=== PATIENT | female | born 1940 | race Caucasian/White ===

== ENCOUNTER 2016-08-20 15:58 | Inpatient (IN) | payer OTHER ==
[2016-08-20] MEDS ORDERED: PANTOPRAZOLE SODIUM 40 MG in SODIUM CHLORIDE 100 ML IVPB ONE (16:40)
[2016-08-20] MEDS: PANTOPRAZOLE SODIUM 80 MG in SODIUM CHLORIDE 100 ML IVPB SCH (17:10)
[2016-08-20 17:18] VITALS: BMI 24.1
[2016-08-20 17:25] LABS: MCH 31.2 pg (25.7-33.7); MCHC 33.1 g/dl (32.0-36.0); MEAN CELL VOLUME 94.1 fl (80-96); MEAN PLT VOLUME 8.4 fl (7.5-11.1); PLATELET COUNT 273 K/MM3 (134-434); RDW 14.3 % (11.6-15.6); WHITE BLOOD COUNT 20.3 K/mm3 (4.0-10.0)
[2016-08-20] MEDS ORDERED: PIPERACILLIN/TAZOB 3.375 GM/50 ML PRE-DOCKED IVPB ONE (17:34)
[2016-08-20] MEDS ORDERED: VANCOMYCIN 1,000 MG in DEXTROSE 5%-WATER - 250 ML IVPB ONE (17:34)
[2016-08-20] MEDS ORDERED: PANTOPRAZOLE SODIUM 100 ML IVPB ONE (17:36)
[2016-08-20] MEDS ORDERED: PANTOPRAZOLE SODIUM 40 MG VIAL ONE (17:37)
[2016-08-20 17:42] LABS: INR 1.42 (0.82-1.09); PROTHROMBIN TIME (PATIENT) 15.7 SEC (9.98-11.88)
[2016-08-20 17:45] LABS: ACTIVATED PTT 34.9 SECONDS (26.9-34.4)
[2016-08-20 17:59] LABS: ALBUMIN 2.8 g/dl (3.4-5.0); BILIRUBIN,TOTAL 3.9 mg/dL (0.2-1.0); MAGNESIUM 1.8 mg/dL (1.8-2.4); PHOSPHOROUS 3.7 mg/dL (2.5-4.9); TOT PROT 6.4 g/dl (6.4-8.2)
--- NOTE | 2016-08-20 18:05 | PDOC ---
History of Present Illness - General History Source: Family (Daughter ), Senior Care Records Exam Limitations: Dementia - History of Present Illness Initial Comments: 08/20/16 18:22 The patient is a 75 year old female, with a significant past medical history of HTN, hyperlipidemia, atrial fibrillation (on Xarelto), coronary artery disease, CHF (on Lasix and Digoxin), left breast CA s/p left sided mastectomy ( approximately 3 years ago) and dementia, who presents to the emergency department via EMS from [facility] with altered mental status. The patients daughter is at the bedside providing history due to the patients baseline dementia. Daughter states that the patient was in her normal state of health yesterday. Today, shelter staff report 3 separate episodes of coffee ground emesis. Daughter reports that the patient is AAO x 1 at her baseline but has seemed more confused/more sleepy today compared to what is usual for her. The patient uses a wheelchair to ambulate. The patients daughter denies any prior history of ulcers. Allergies: None reported. Past Surgical History: Left Mastectomy. Family History: Colon CA (uncle). Social History: Non smoker. Denies alcohol or drug use. PCP: Dr. Alexander Urban <Racquel Urban - Last Filed: 08/20/16 19:57> - General History Source: Family, Senior Care Records, Old Records Exam Limitations: Clinical Condition, Dementia <Armani Garcia - Last Filed: 08/20/16 20:04> - General Chief Complaint: Coffee Ground Emesis Stated Complaint: VOMITING, AMS Time Seen by Provider: 08/20/16 16:19 Past History <Racquel Urban - Last Filed: 08/20/16 19:57> - Past Medical History Cardiac Disorders: Yes (CAD, CHF,AFIB) Dementia: Yes HTN: Yes Hypercholesterolemia: Yes Psychiatric Problems: Yes (DEPRESSION) - Psycho/Social/Smoking Cessation Hx Anxiety: No Suicidal Ideation: No Smoking History: Never smoked Information on smoking cessation initiated: No Hx Alcohol Use: No Drug/Substance Use Hx: No Substance Use Type: None <Armani Garcia - Last Filed: 08/20/16 20:04> - Past Medical History Allergies/Adverse Reactions: Allergies Allergy/AdvReac Type Severity Reaction Status Date / Time No Known Allergies Allergy Verified 08/20/16 16:15 Home Medications: Ambulatory Orders Acetaminophen [Tylenol -] 650 mg PO Q8H 08/20/16 Anastrozole [Arimidex -] 1 mg PO DAILY 08/20/16 Atorvastatin Ca [Lipitor] 10 mg PO HS 08/20/16 Clonazepam [KlonoPIN] 0.5 mg PO TID 08/20/16 Clotrimazole [Lotrimin 1% Cream -] 1 applic TP BID 08/20/16 Digoxin [Digitek] 125 mcg PO ASDIR 08/20/16 Divalproex [Depakote -] 250 mg PO BID 08/20/16 Donepezil HCl [Aricept -] 10 mg PO HS 08/20/16 Escitalopram Oxalate [Lexapro -] 20 mg PO DAILY 08/20/16 Furosemide [Lasix] 40 mg PO DAILY 08/20/16 Isosorbide Mononitrate [Isosorbide Mononitrate ER] 30 mg PO DAILY 08/20/16 Lisinopril [Zestril] 2.5 mg PO DAILY 08/20/16 Melatonin 2 mg PO HS 08/20/16 Metoprolol Tartrate [Lopressor -] 50 mg PO BID 08/20/16 Multivitamin with Minerals [Icaps Plus] 1 each PO DAILY 08/20/16 Polyethylene Glycol 3350 [Gavilax] 17 gm PO DAILY 08/20/16 Rivaroxaban [Xarelto -] 20 mg PO DAILY 08/20/16 Review of Systems - Review of Systems Able to Perform ROS?: No Comments:: 08/20/16 18:12 Unable to perform ROS due to patients baseline dementia. <Racquel Urban - Last Filed: 08/20/16 19:57> *Physical Exam - Vital Signs Last Vital Signs Temp Pulse Resp BP Pulse Ox 101.8 F H 87 20 115/70 95 08/20/16 16:25 08/20/16 16:10 08/20/16 16:10 08/20/16 16:10 08/20/16 16:10 - Physical Exam Comments: 08/20/16 18:37 GENERAL: Warm to touch. AAO x 0 but the patient is alert. HEAD: No signs of trauma. EYES: PERRLA, EOMI, sclera anicteric, conjunctiva clear. ENT: Dry mucosa. Auricles normal inspection, hearing grossly normal, nares patent, oropharynx clear without exudates. NECK: Normal ROM, supple, no lymphadenopathy, JVD, or masses. LUNGS: Breath sounds equal, clear to auscultation bilaterally. No wheezes, and no crackles. HEART: Regular rate and rhythm, normal S1 and S2, no murmurs, rubs or gallops. ABDOMEN: Soft, nontender, normoactive bowel sounds. No guarding, no rebound. No masses. EXTREMITIES: Normal range of motion, no edema. No clubbing or cyanosis. No cords , erythema, or tenderness. NEUROLOGICAL: Cranial nerves II through XII intact. Normal speech, gait deferred. SKIN: Warm, dry, normal turgor, no rashes or lesions noted. RECTAL EXAM: Brown stool. No tears. <Racquel Urban - Last Filed: 08/20/16 19:57> - Vital Signs Last Vital Signs Temp Pulse Resp BP Pulse Ox 101.8 F H 87 20 115/70 95 08/20/16 16:25 08/20/16 16:10 08/20/16 16:10 08/20/16 16:10 08/20/16 16:10 <Armani Garcia - Last Filed: 08/20/16 20:04> Heart Score/ECG Review #1 ECG reviewed & interpreted by me at: 17:45 08/20/16 18:02 atrial fibrillation 91, TWi V3, no std/tracey, TWI III, normal axis, normal intervals, QTC 499 msec <Armani Garcia - Last Filed: 08/20/16 20:04> ED Treatment Course - LABORATORY CBC & Chemistry Diagram: 08/20/16 16:59 08/20/16 16:59 - ADDITIONAL ORDERS Additional order review: Laboratory Results 08/20/16 16:59 INR 1.42 H PTT (Actin FS) 34.9 H 08/20/16 16:59 RBC 3.72 MCV 94.1 MCHC 33.1 RDW 14.3 MPV 8.4 Neutrophils % Y Lymphocytes % Y <Racquel Urban - Last Filed: 08/20/16 19:57> - LABORATORY CBC & Chemistry Diagram: 08/20/16 16:59 08/20/16 16:59 - ADDITIONAL ORDERS Additional order review: Laboratory Results 08/20/16 16:59 INR 1.42 H PTT (Actin FS) 34.9 H 08/20/16 16:59 RBC 3.72 MCV 94.1 MCHC 33.1 RDW 14.3 MPV 8.4 Neutrophils % Y Lymphocytes % Y - RADIOLOGY Radiology Studies Ordered: Category Date Time Status HEAD CT WITHOUT CONTRAST [CT] Stat CT Scan 08/20/16 16:37 Ordered CHEST X-RAY PORTABLE* [RAD] Stat Radiology 08/20/16 16:37 Completed <Armani Garcia - Last Filed: 08/20/16 20:04> Medical Decision Making - Medical Decision Making 08/20/16 18:11 EXAM: RAD/CHEST X-RAY PORTABLE Reviewed By: Dr. Daisy Chairez IMPRESSION: Limited examination due to a chin artifact obscuring the thoracic inlet. [id number] cardiomegaly and mild bibasal atelectatic changes without gross evidence of infiltrates. EXAM: CT / HEAD CT WITHOUT CONTRAST Reviewed By: Dr. Daisy Chairez IMPRESSION: Moderate atrophy. No gross evidence of a focal intracranial lesion or hemorrhage is seen. Call placed to Dr. Sasha Paniagua at 19:41. Referred to answering service, awaiting callback. Dr. Paniagua returned call at 19:55, case discussed. <Racquel Urban - Last Filed: 08/20/16 19:57> - Medical Decision Making 08/20/16 18:03 A portion of this note was documented by scribe services under my direction. I have reviewed the details of the note, within reason, and agree with the documentation with the following case summary and management plan written by me. Patient treated in the ED. Nursing notes are reviewed and incorporated into the medical decision-making. Vital signs reviewed. Peripheral IV access obtained by the nurse, laboratory studies are drawn and sent, reviewed and interpreted by myself. Vital Signs Temp Pulse Resp BP Pulse Ox 101.8 F H 87 20 115/70 95 08/20/16 16:25 08/20/16 16:10 08/20/16 16:10 08/20/16 16:10 08/20/16 16:10 75-year-old female with past medical history of hypertension, hyperlipidemia, dementia, coronary disease, congestive heart failure on Lasix and digoxin, distant breast cancer presents with altered mental status today. Patient is from shelter [facility]. The daughter noted that the patient was in her usual state of health yesterday. She is typically AAO 1 at her dementia baseline. Today, patient is noted to have 3 separate episodes of coffee ground emesis and altered and fevers. Patient is unable to provide any further information given her dementia. Adult sepsis protocol initiated. Differential includes sepsis, urinary tract infection. Pneumonia is within differential is patient is coughing. Given the coffee-ground emesis like, we'll need to consider upper GI bleed. Guaiac stool. Initiate Protonix bolus and drip. Admit the patient to the hospital for further evaluation. We'll also obtain head CT to rule out neurological causes. 08/20/16 20:02 CBC, BMP 08/20/16 16:59 08/20/16 16:59 CMP Sodium 140 mmol/L (136-145) 08/20/16 16:59 Potassium 4.4 mmol/L (3.5-5.1) 08/20/16 16:59 Chloride 100 mmol/L (98-107) 08/20/16 16:59 Carbon Dioxide 29 mmol/L (21-32) 08/20/16 16:59 Anion Gap 11 (8-16) 08/20/16 16:59 BUN 25 mg/dL (7-18) H 08/20/16 16:59 Creatinine 1.0 mg/dL (0.55-1.02) 08/20/16 16:59 Creat Clearance w eGFR 53.91 (>60) 08/20/16 16:59 Random Glucose 126 mg/dL (74-106) H 08/20/16 16:59 Lactic Acid 3.352 mmol/L (0.4-2.0) H* 08/20/16 16:59 Calcium 9.0 mg/dL (8.5-10.1) 08/20/16 16:59 Phosphorus 3.7 mg/dL (2.5-4.9) 08/20/16 16:59 Magnesium 1.8 mg/dL (1.8-2.4) 08/20/16 16:59 Total Bilirubin 3.9 mg/dL (0.2-1.0) H 08/20/16 16:59 AST 307 U/L (15-37) H 08/20/16 16:59 ALT 338 U/L (12-78) H 08/20/16 16:59 Alkaline Phosphatase 348 U/L (45-117) H 08/20/16 16:59 Creatine Kinase 57 IU/L (26-192) 08/20/16 16:59 Troponin I 0.12 ng/ml (0.00-0.05) H 08/20/16 16:59 B-Natriuretic Peptide 60787.99 pg/ml (5-450) H 08/20/16 16:59 Total Protein 6.4 g/dl (6.4-8.2) 08/20/16 16:59 Albumin 2.8 g/dl (3.4-5.0) L 08/20/16 16:59 Urine Test Results Urine Color Ketty 08/20/16 17:32 Urine Appearance Clear 08/20/16 17:32 Urine pH 5.0 (5.0-8.0) 08/20/16 17:32 Ur Specific [place] 1.027 (1.001-1.035) 08/20/16 17:32 Urine Protein 2+ (NEGATIVE) H 08/20/16 17:32 Urine Glucose (UA) Negative (NEGATIVE) 08/20/16 17:32 Urine Ketones Negative (NEGATIVE) 08/20/16 17:32 Urine Blood Negative (NEGATIVE) 08/20/16 17:32 Urine Nitrite Negative (NEGATIVE) 08/20/16 17:32 Urine Bilirubin 4.0 (NEGATIVE) 08/20/16 17:32 Ur Leukocyte Esterase Trace (NEGATIVE) H 08/20/16 17:32 CAT scan head reviewed. No acute findings. Chest x-ray reviewed. Shows no infiltrates. No pleural effusions. The patient is noted to have an elevated white count and bandemia and lactic acid of 3.35. Decision was made to start empiric antibiotics vancomycin and Zosyn. The source is not clear at this moment. Influenza swab is pending. The troponin is slightly elevated which may be secondary to her elevated BNP. I have low suspicion for acute FL event at this time. Transaminases are also elevated, again, may be potentially secondary to sepsis or hepatic congestion. Given that the patient is being treated for sepsis, decision was made to not give diuretics. We'll need to reevaluate fluid status prior to making a decision about diuretics. Case was discussed with Dr. Paniagua who accepts the patient for telemetry admission to the hospital. Case discussed in detail with admitting physician including history, physical exam and ancillary studies. Admitting physician has assumed care for the patient, will follow all pending diagnostics and will complete the evaluation and treatment. <Armani Garcia - Last Filed: 08/20/16 20:04> *DC/Admit/Observation/Transfer - Attestations Scribe Attestion: 08/20/16 18:11 Documentation prepared by Racquel Urban, acting as manager medical writing for Armani Garcia MD. <Racquel Urban - Last Filed: 08/20/16 19:57> - Discharge Dispostion Admit: Yes <Armani Garcia - Last Filed: 08/20/16 20:04> Diagnosis at time of Disposition: Sepsis Qualifiers: Sepsis type: sepsis due to unspecified organism Qualified Code(s): A41.9 - Sepsis, unspecified organism - Discharge Dispostion Condition at time of disposition: Guarded - Referrals Referrals: Alexander Urban [Primary Care Provider] -
[2016-08-20 18:15] LABS: TROPONIN I 0.12 ng/ml (0.00-0.05)
[2016-08-20 18:16] LABS: PLATELET ESTIMATE ADEQUATE (NORMAL)
[2016-08-20] MEDS ORDERED: PIPERACILLIN/TAZOB 3.375 GM 50 ML IVPB ONE (19:15)
[2016-08-20] MEDS ORDERED: VANCOMYCIN 1 GRAM (PRE-DOCKED) 250 ML IVPB ONE (19:15)
[2016-08-20 19:26] LABS: URINE APPEARANCE CLEAR; URINE BLOOD NEGATIVE (NEGATIVE); URINE COLOR AMBER; URINE GLUCOSE (UA) NEGATIVE (NEGATIVE); URINE KETONE NEGATIVE (NEGATIVE); URINE NITRITE NEGATIVE (NEGATIVE); URINE UROBILINOGEN 4.0 E.U/dl E.U./dl (0.2-1.0)
[2016-08-20 19:33] LABS: URINE LEUK ESTERASE TRACE (NEGATIVE); URINE PROTEIN 2+ (NEGATIVE)
[2016-08-20 19:37] LABS: URINE MUCUS MODERATE; URINE RBC 8 /hpf (0-3); URINE WBC 4 /hpf (3-5)
[2016-08-20] MEDS ORDERED: ACETAMINOPHEN 1000 MG/100 ML VIAL (NON FORMULARY) IVPB ONE (19:50)
[2016-08-20] MEDS ORDERED: ACETAMINOPHEN INJECTION 100 ML IVPB ONE (20:03)
[2016-08-20] MEDS ORDERED: ATORVASTATIN CA 10 MG TABLET (FP) PO SCH (22:00)
[2016-08-20] MEDS: METOPROLOL TARTRATE 50 MG TABLET (FP) PO SCH (23:16)
[2016-08-20] MEDS: clonazePAM 0.5 MG TABLET PO SCH (23:16)
[2016-08-20] MEDS: CLOTRIMAZOLE 1% CREAM 15 GM TUBE TP SCH (23:16)
[2016-08-20] MEDS: DIVALPROEX SODIUM 125 MG TABLET E.C. (FP) PO SCH (23:16)
[2016-08-20] MEDS: DONEPEZIL HCL 10 MG TABLET (FP) PO SCH (23:16)
[2016-08-20] MEDS: MELATONIN 1 MG TABLET PO SCH (23:16)
[2016-08-21] MEDS: PANTOPRAZOLE SODIUM 80 MG in SODIUM CHLORIDE 100 ML IVPB SCH (05:33)
[2016-08-21] MEDS: clonazePAM 0.5 MG TABLET PO SCH ×3 (05:38→22:40)
[2016-08-21] MEDS: ACETAMINOPHEN 325 MG TABLET (FP) PO SCH ×2 (05:38→05:39)
[2016-08-21 08:33] LABS: BASOPHIL 0.3 % (0-2.0); EOSINOPHIL 0.8 % (0-4.5); MCH 31.4 pg (25.7-33.7); MCHC 33.3 g/dl (32.0-36.0); MEAN CELL VOLUME 94.3 fl (80-96); MEAN PLT VOLUME 8.4 fl (7.5-11.1); NEUTROPHILS 85.7 % (42.8-82.8); PLATELET COUNT 196 K/MM3 (134-434); RDW 14.1 % (11.6-15.6); WHITE BLOOD COUNT 13.8 K/mm3 (4.0-10.0)
[2016-08-21 09:01] LABS: ALBUMIN 2.6 g/dl (3.4-5.0); CALCIUM 8.5 mg/dL (8.5-10.1)
[2016-08-21 09:08] LABS: ALK PHOS 283 U/L (45-117); CO2 31 mmol/L (21-32); CREATININE 0.8 mg/dL (0.55-1.02); GLUCOSE,RANDOM 84 mg/dL (74-106); SGOT/AST 227 U/L (15-37); SGPT/ALT 299 U/L (12-78); TOT PROT 5.6 g/dl (6.4-8.2)
[2016-08-21] MEDS: LISINOPRIL 5 MG TABLET (FP) PO SCH (09:45)
[2016-08-21] MEDS: ESCITALOPRAM OXALATE 20 MG TABLET (FP) PO SCH (09:45)
[2016-08-21] MEDS: RIVAROXABAN 20 MG TABLET PO SCH (09:45)
[2016-08-21] MEDS: MULTIVITAMINS THER W-MINERALS COMBO TABLET (FP) PO SCH (09:47)
[2016-08-21] MEDS: METOPROLOL TARTRATE 50 MG TABLET (FP) PO SCH ×2 (09:47→22:40)
[2016-08-21] MEDS: ISOSORBIDE MONONITRATE 30 MG TAB.SR.24H (FP) PO SCH (09:48)
[2016-08-21] MEDS ORDERED: PT OWN MED DRAWER 7, Y5N ONE ×2 (09:53→21:35)
[2016-08-21] MEDS: DIVALPROEX SODIUM 125 MG TABLET E.C. (FP) PO SCH (09:54)
[2016-08-21] MEDS ORDERED: PANTOPRAZOLE SODIUM 40 MG in SODIUM CHLORIDE 100 ML IVPB SCH (10:00)
[2016-08-21] MEDS: ANASTROZOLE 1 MG TABLET PO SCH (10:24)
--- NOTE | 2016-08-21 11:38 | PN ---
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 (short form) - Note 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: ID Consult dictated Sepsis, unclear source Leukocytosis Elevated LFTs possible biliary sepsis v. shock liver Await c/s Liver/ GB sono Empiric zosyn
--- NOTE | 2016-08-21 12:27 | HP ---
Admitting History and Physical - Primary Care Physician PCP: Sasha Paniagua - Admission Chief Complaint: ams History of Present Illness: The patient is a 75 year old female, with a significant past medical history of HTN, hyperlipidemia, atrial fibrillation (on Xarelto), coronary artery disease, CHF (on Lasix and Digoxin), left breast CA s/p left sided mastectomy ( approximately 3 years ago) and dementia, who presents to the emergency department via EMS from [facility] with altered mental status. The patients daughter was at the bedside providing history due to the patients baseline dementia. Daughter states that the patient was in her normal state of health day before . Yesterday , detention staff report 3 separate episodes of coffee ground emesis. Daughter reports that the patient is AAO x 1 at her baseline but has seemed more confused/more sleepy today compared to what is usual for her. The patient uses a wheelchair to ambulate. The patients daughter denies any prior history of ulcers. Allergies: None reported. Past Surgical History: Left Mastectomy. Family History: Colon CA (uncle). Social History: Non smoker. Denies alcohol or drug use. PCP: Dr. Alexander Urban pt found to be septic with fever/ elevated cbc / lfts h/h - stable ct head -ok pt given abx / i/v protonix -- admitted to tele pt seen today - alert and awake/ son at bedside son reports she is at her baseline today no episodes of emesis noted pt poor historian but denies any complains denies cp/sob/ abd pain eating ok chart reviewed History Source: Family Member, Medical Record Limitations to Obtaining History: Clinical Condition, Dementia - Past Medical History [employer]: Yes: Dementia Cardiovascular: Yes: AFIB, CHF Hepatobiliary: Yes: Cholecystitis (son gives h/o cholecystitits in past) - Past Surgical History Past Surgical History: Yes: Mastectomy (left sided) - Advance Directives Advance Directives: Yes: Health Care Proxy, DNR - Smoking History Smoking history: Never smoked Have you smoked in the past 12 months: No - Alcohol/Substance Use Hx Alcohol Use: No - Social History Usual Living Arrangement: Yes: Alf Home Medications - Allergies Allergies/Adverse Reactions: Allergies Allergy/AdvReac Type Severity Reaction Status Date / Time No Known Allergies Allergy Verified 08/20/16 16:15 - Home Medications Home Medications: Ambulatory Orders Acetaminophen [Tylenol -] 650 mg PO Q8H 08/20/16 Anastrozole [Arimidex -] 1 mg PO DAILY 08/20/16 Atorvastatin Ca [Lipitor] 10 mg PO HS 08/20/16 Clonazepam [KlonoPIN] 0.5 mg PO TID 08/20/16 Clotrimazole [Lotrimin 1% Cream -] 1 applic TP BID 08/20/16 Digoxin [Digitek] 125 mcg PO ASDIR 08/20/16 Divalproex [Depakote -] 250 mg PO BID 08/20/16 Donepezil HCl [Aricept -] 10 mg PO HS 08/20/16 Escitalopram Oxalate [Lexapro -] 20 mg PO DAILY 08/20/16 Furosemide [Lasix] 40 mg PO DAILY 08/20/16 Isosorbide Mononitrate [Isosorbide Mononitrate ER] 30 mg PO DAILY 08/20/16 Lisinopril [Zestril] 2.5 mg PO DAILY 08/20/16 Melatonin 2 mg PO HS 08/20/16 Metoprolol Tartrate [Lopressor -] 50 mg PO BID 08/20/16 Multivitamin with Minerals [Icaps Plus] 1 each PO DAILY 08/20/16 Polyethylene Glycol 3350 [Gavilax] 17 gm PO DAILY 08/20/16 Rivaroxaban [Xarelto -] 20 mg PO DAILY 08/20/16 Family Disease History - Family Disease History Family History: Unable to Obtain Review of Systems Unable to obtain ROS, reason: see [email or web address] Physical Examination Vital Signs: Vital Signs Temperature 98.2 F 08/21/16 09:00 Pulse Rate 90 08/21/16 09:00 Respiratory Rate 18 08/21/16 09:00 Blood Pressure 134/74 08/21/16 09:00 O2 Sat by Pulse Oximetry (%) 96 08/21/16 09:00 Constitutional: Yes: No Distress, Calm Eyes: Yes: Conjunctiva Clear HENT: Yes: WNL Neck: Yes: Supple, Trachea Midline Cardiovascular: Yes: Pulse Irregular Respiratory: Yes: Diminished Gastrointestinal: Yes: Normal Bowel Sounds, Soft Edema: No Neurological: Yes: Alert Psychiatric: Yes: Alert Labs: CBC, BMP 08/21/16 06:00 08/21/16 06:00 Imaging - Results Chest X-ray: Report Reviewed Cat Scan: Report Reviewed EKG: Report Reviewed Problem List - Problems (1) Sepsis Code(s): A41.9 - SEPSIS, UNSPECIFIED ORGANISM Qualifiers: Sepsis type: sepsis due to unspecified organism Qualified Code(s): A41.9 - Sepsis, unspecified organism Assessment/Plan AMS-- likely due to sepsis-- better Sepsis elevated liver enzymes-- likely due to sepsis afib- emesis -- resolved chf - stable + ve troponins dementia h/o breast ca Abx wbc trending down f/u cultures po protonix meds reviewed restart on lasix from tomorrow f/u labs/ lfts echo u/s gall bladder/ liver oob - chair pt is DNR Will follow Discussed with pts son who is at bedside
[2016-08-21] MEDS: CLOTRIMAZOLE 1% CREAM 15 GM TUBE TP SCH ×2 (12:34→22:40)
[2016-08-21] MEDS: POLYETHYLENE GLYCOL 3350 119 GM BTL PO SCH (12:34)
[2016-08-21] MEDS: PIPERACILLIN/TAZOB 3.375 GM 50 ML IVPB SCH ×2 (12:34→17:36)
[2016-08-21] MEDS: PANTOPRAZOLE 40 MG TABLET (FP) PO SCH (12:34)
[2016-08-21] MEDS ORDERED: clonazePAM 0.5 MG TABLET PO ONE (17:30)
--- NOTE | 2016-08-21 19:16 | CONS ---
DATE OF CONSULTATION: DATE OF DICTATION: 08/21/2016 HISTORY OF PRESENT ILLNESS: The patient is a 75-year-old female evaluated for sepsis. History was obtained from the chart as well as the patient's son present at the time of the examination. She suffers from dementia and cannot give a reliable history. [facility] after she was noted to have 3 episodes of hematemesis. In the emergency room, she was afebrile and with a markedly elevated white blood cell count and lactic acidosis. A CAT scan of the head was done and was negative. She was empirically treated with vancomycin and Zosyn. At the present time, she is awake, according to the son, she is more alert. She denies any focal complaints. She denies any chest pain, shortness of breath, cough, or sputum production. No dysuria or hematuria. PAST MEDICAL HISTORY: Positive for dementia, hyperlipidemia, atrial fibrillation, coronary artery disease, congestive heart failure, left breast CA. PAST SURGICAL HISTORY: Status post left mastectomy. ALLERGIES: No known allergies. MEDICATIONS: Arimidex, Lipitor, Klonopin, Depakote, Aricept, Lexapro, Lasix, isosorbide, Zestril, Lopressor, Xarelto. SOCIAL HISTORY: Lives in a prison, is dependent on activities of daily living. No active tobacco or alcohol use. She is wheelchair bound. SYSTEMS REVIEW: Neurologic: Positive for dementia. Cardiac: Negative for chest pain and palpitations. Respiratory: Negative cough or sputum production. Gastrointestinal: Per HPI. Genitourinary: Negative for urinary tract infection. LABORATORY DATA: White count on admission 20.3, presently 13.8. Hematocrit 31.0, platelet count 196, BUN 28, creatinine 0.6. Total bilirubin 2.0. Alkaline phosphatase 283, AST 227, ALT 299. Urinalysis: 4 white cells. Chest x-ray prominent right hilum. PHYSICAL EXAMINATION: General: She is awake and responsive, confused. Vital Signs: Temperature 98.1, T-max 101.8, blood pressure 91/53, pulse 94 and regular, respirations 20 per minute. HEENT: Sclerae anicteric. Heart: Sounds S1, S2, irregular. Lungs: Diminished breath sounds bilaterally. Abdomen: Distended, tympanitic. No tenderness elicited. No mass, rebound, or rigidity. Extremities: Negative for edema. IMPRESSION: 1. Sepsis, unclear source. 2. Elevated liver enzymes, rule out biliary sepsis versus shock liver. 3. Marked leukocytosis. Source of sepsis not clear. Await culture results. Will obtain sonogram of the liver and gallbladder. Empiric antibiotic coverage for biliary tract, urinary tract, and respiratory tract pathogens with Zosyn. Aspiration precautions. Case discussed with patient's son present at the time of examination. Thank you for the kind referral. PARMINDER LOREDO M.D. [id number]
--- NOTE | 2016-08-21 19:56 | CON.CARD ---
Consult Consult Specialty:: Cardiology Referred by:: Sasha Paniagua MD Reason for Consultation:: Demand ischemia - History of Present Illness Chief Complaint: Altered mental status, fevers History of Present Illness: The patient is a 75 year old female, with a significant past medical history of HTN, hyperlipidemia, atrial fibrillation (on Xarelto), coronary artery disease, CHF (on Lasix and Digoxin), left breast CA s/p left sided mastectomy ( approximately 3 years ago) and dementia, who presented with altered mental status, sepsis and 3 separate episodes of coffee ground emesis.The patient uses a wheelchair to ambulate. The patients daughter denies any prior history of ulcers. Allergies: None reported. Past Surgical History: Left Mastectomy. Family History: Colon CA (uncle). Social History: Non smoker. Denies alcohol or drug use. PCP: Dr. 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 Cardio/Vascular: Yes: AFIB, CHF Hepatobiliary: Yes: Cholecystitis (son gives h/o cholecystitits in past) - Past Surgical History Past Surgical History: Yes: Mastectomy (left sided) - Alcohol/Substance Use Hx Alcohol Use: No - Smoking History Smoking history: Never smoked Have you smoked in the past 12 months: No Home Medications - Allergies Allergies/Adverse Reactions: Allergies Allergy/AdvReac Type Severity Reaction Status Date / Time No Known Allergies Allergy Verified 08/20/16 16:15 - Home Medications Home Medications: Ambulatory Orders Acetaminophen [Tylenol -] 650 mg PO Q8H 08/20/16 Anastrozole [Arimidex -] 1 mg PO DAILY 08/20/16 Atorvastatin Ca [Lipitor] 10 mg PO HS 08/20/16 Clonazepam [KlonoPIN] 0.5 mg PO TID 08/20/16 Clotrimazole [Lotrimin 1% Cream -] 1 applic TP BID 08/20/16 Digoxin [Digitek] 125 mcg PO ASDIR 08/20/16 Divalproex [Depakote -] 250 mg PO BID 08/20/16 Donepezil HCl [Aricept -] 10 mg PO HS 08/20/16 Escitalopram Oxalate [Lexapro -] 20 mg PO DAILY 08/20/16 Furosemide [Lasix] 40 mg PO DAILY 08/20/16 Isosorbide Mononitrate [Isosorbide Mononitrate ER] 30 mg PO DAILY 08/20/16 Lisinopril [Zestril] 2.5 mg PO DAILY 08/20/16 Melatonin 2 mg PO HS 08/20/16 Metoprolol Tartrate [Lopressor -] 50 mg PO BID 08/20/16 Multivitamin with Minerals [Icaps Plus] 1 each PO DAILY 08/20/16 Polyethylene Glycol 3350 [Gavilax] 17 gm PO DAILY 08/20/16 Rivaroxaban [Xarelto -] 20 mg PO DAILY 08/20/16 Review of Systems Unable to obtain ROS, reason: Dementia Vital Signs: Vital Signs Temperature 98.6 F 08/21/16 18:00 Pulse Rate 91 H 08/21/16 18:00 Respiratory Rate 18 08/21/16 18:00 Blood Pressure 112/63 08/21/16 18:00 O2 Sat by Pulse Oximetry (%) 96 08/21/16 09:00 Constitutional: Yes: No Distress, Calm, Thin Neck: Yes: Supple Respiratory: Yes: Regular, Diminished Gastrointestinal: Yes: Soft, Hypoactive Bowel Sounds Cardiovascular: Yes: Pulse Irregular JVD: No Carotid Bruit: No Heart Sounds: Yes: S1, S2 Murmur: Yes: Systolic Murmur, Grade 1 Edema: No - Other Data Labs, Other Data: CBC, BMP 08/21/16 06:00 08/21/16 06:00 INR, PTT INR 1.42 (0.82-1.09) H 08/20/16 16:59 Afib@91 Imaging - Results Chest X-ray: Report Reviewed (Mild bibasilar ATX) Cat Scan: Report Reviewed (HCT: Mild atrophy) Problem List - Problems (1) Sepsis Code(s): A41.9 - SEPSIS, UNSPECIFIED ORGANISM Qualifiers: Sepsis type: sepsis due to unspecified organism Qualified Code(s): A41.9 - Sepsis, unspecified organism (2) Atrial fibrillation Code(s): I48.91 - UNSPECIFIED ATRIAL FIBRILLATION Qualifiers: Atrial fibrillation type: persistent Qualified Code(s): I48.1 - Persistent atrial fibrillation (3) Diastolic dysfunction Code(s): I51.9 - HEART DISEASE, UNSPECIFIED (4) Hyperlipidemia Code(s): E78.5 - HYPERLIPIDEMIA, UNSPECIFIED Qualifiers: Hyperlipidemia type: pure hypercholesterolemia Qualified Code(s): E78.0 - Pure hypercholesterolemia (5) Dementia Code(s): F03.90 - UNSPECIFIED DEMENTIA WITHOUT BEHAVIORAL DISTURBANCE Qualifiers: Dementia type: unspecified type Dementia behavioral disturbance: without behavioral disturbance Qualified Code(s): F03.90 - Unspecified dementia without behavioral disturbance (6) Demand ischemia Code(s): I24.8 - OTHER FORMS OF ACUTE ISCHEMIC HEART DISEASE (7) Coronary artery disease Code(s): I25.10 - ATHSCL HEART DISEASE OF [place] CORONARY ARTERY W/O ANG PCTRS Qualifiers: Coronary Disease-Associated Artery/Lesion type: [place] artery [place] vs. transplanted heart: [place] heart Associated angina: without angina Qualified Code(s): I25.10 - Atherosclerotic heart disease of [place] coronary artery without angina pectoris (8) Anticoagulation adequate with anticoagulant therapy Code(s): Z79.01 - ALF (CURRENT) USE OF ANTICOAGULANTS (9) Abnormal liver enzymes Code(s): R74.8 - ABNORMAL LEVELS OF OTHER SERUM ENZYMES Assessment/Plan 1. Toxic metabolic encephelopathy referable to sepsis with underlying dementia 2. Leukocytosis, demand ischemia, elevated LFT r/o biliary sepsis vs cholestasis of sepsis 3. Persistent afib on NOAC 4. CAD demand ischemia referable to #1 5. Diastolic dysfxn with elevated biomarkers 6. Hyperlipidemia 7. H/o breast ca P:1. Empiric zosyn course pending c/s, Liver/ GB sono 2. F/u echo to assess ventricular and valve fxn, trend trops and LFTs 3. Continue Dig 0.125 qd, Imdur 30 qd, Lopressor 50 bid, Xarelto 20 qd and lisinopril 2.5 qd, resuming Lasix in AM, Lipitor held pending LFT normalization 4. GI prophylaxis 5. Thank you for consultative opportunity
--- NOTE | 2016-08-21 21:06 | EKG ---
Test Reason : Blood Pressure : / mmHG Vent. Rate : 091 BPM Atrial Rate : 416 BPM P-R Int : 000 ms QRS Dur : 092 ms QT Int : 406 ms P-R-T Axes : 000 043 026 degrees QTc Int : 499 ms ATRIAL FIBRILLATION NONSPECIFIC ST AND T WAVE ABNORMALITY PROLONGED QT ABNORMAL ECG NO PREVIOUS ECGS AVAILABLE Confirmed by REYES LIZAMA MD ([id number]) on 08/21/2016 9:06:03 PM Referred By: Confirmed By:REYES LIZAMA MD
[2016-08-21] MEDS: DONEPEZIL HCL 10 MG TABLET (FP) PO SCH (22:40)
[2016-08-21] MEDS: MELATONIN 1 MG TABLET PO SCH (22:40)
[2016-08-22] MEDS: DIVALPROEX SODIUM 125 MG TABLET E.C. (FP) PO SCH (00:17)
[2016-08-22] MEDS: PIPERACILLIN/TAZOB 3.375 GM 50 ML IVPB SCH ×3 (01:08→18:02)
[2016-08-22] MEDS: clonazePAM 0.5 MG TABLET PO SCH ×3 (05:36→21:20)
[2016-08-22 07:16] LABS: BASOPHIL 0.3 % (0-2.0); EOSINOPHIL 1.3 % (0-4.5); MCH 32.1 pg (25.7-33.7); MCHC 34.3 g/dl (32.0-36.0); MEAN CELL VOLUME 93.5 fl (80-96); MEAN PLT VOLUME 8.8 fl (7.5-11.1); NEUTROPHILS 78.8 % (42.8-82.8); PLATELET COUNT 215 K/MM3 (134-434); RDW 14.1 % (11.6-15.6); WHITE BLOOD COUNT 10.1 K/mm3 (4.0-10.0)
[2016-08-22 07:52] LABS: ALBUMIN 2.3 g/dl (3.4-5.0); BILIRUBIN,DIRECT 0.4 mg/dL (0.0-0.2)
[2016-08-22 07:54] LABS: BILIRUBIN,TOTAL 0.9 mg/dL (0.2-1.0); TOT PROT 5.5 g/dl (6.4-8.2)
[2016-08-22 08:16] LABS: ALBUMIN 2.5 g/dl (3.4-5.0); ANION GAP 6 (8-16); CALCIUM 8.6 mg/dL (8.5-10.1); CO2 33 mmol/L (21-32); CREATININE 0.9 mg/dL (0.55-1.02); GLUCOSE,RANDOM 96 mg/dL (74-106); SGOT/AST 119 U/L (15-37); SGPT/ALT 209 U/L (12-78); TOT PROT 5.5 g/dl (6.4-8.2)
[2016-08-22 08:17] LABS: ALK PHOS 273 U/L (45-117); BILIRUBIN,TOTAL 1.2 mg/dL (0.2-1.0)
[2016-08-22] MEDS ORDERED: PT OWN MED DRAWER 7, Y5N ONE (09:22)
[2016-08-22] MEDS ORDERED: clonazePAM 0.5 MG TABLET PO ONE (09:30)
--- NOTE | 2016-08-22 09:58 | PN ---
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, Physician History of Present Illness: Low grade fevers, tachy-sharon on monitor. - Current Medication List Current Medications: Active Medications Anastrozole (Arimidex -) 1 mg PO DAILY [facility] Last Admin: 08/21/16 10:24 Dose: 1 mg Clonazepam (Klonopin -) 0.5 mg PO TID [facility] Last Admin: 08/22/16 05:36 Dose: Not Given Clotrimazole (Lotrimin 1% Cream -) 1 applic TP BID [facility] Last Admin: 08/21/16 22:40 Dose: 1 applic Divalproex Sodium (Depakote -) 250 mg PO BID [facility] Donepezil HCl (Aricept -) 10 mg PO HS [facility] Last Admin: 08/21/16 22:40 Dose: 10 mg Escitalopram Oxalate (Lexapro -) 20 mg PO DAILY [facility] Last Admin: 08/21/16 09:45 Dose: 20 mg Furosemide (Lasix -) 40 mg PO DAILY [facility] Piperacillin Sod/Tazobactam Sod (Zosyn 3.375gm Ivpb (Pre-Docked)) 50 mls @ 100 mls/hr IVPB Q8H-IV [facility] PRN Reason: Protocol Last Admin: 08/22/16 01:08 Dose: 100 mls/hr Isosorbide Mononitrate (Imdur -) 30 mg PO DAILY [facility] Last Admin: 08/21/16 09:48 Dose: 30 mg Lisinopril (Prinivil) 2.5 mg PO DAILY [facility] Last Admin: 08/21/16 09:45 Dose: 2.5 mg Melatonin (Melatonin) 2 mg PO HS [facility] Last Admin: 08/21/16 22:40 Dose: 2 mg Metoprolol Tartrate (Lopressor -) 50 mg PO BID [facility] Last Admin: 08/21/16 22:40 Dose: 50 mg Multivitamins/Minerals (Theragran-M) 1 each PO DAILY [facility] Last Admin: 08/21/16 09:47 Dose: 1 each Pantoprazole Sodium (Protonix -) 40 mg PO DAILY [facility] Last Admin: 08/21/16 12:34 Dose: 40 mg Polyethylene Glycol (Miralax (For Daily Use) -) 17 gm PO DAILY [facility] Last Admin: 08/21/16 12:34 Dose: 17 grams Rivaroxaban (Xarelto -) 20 mg PO DAILY [facility] Last Admin: 08/21/16 09:45 Dose: 20 mg - Objective Vital Signs: Vital Signs Temperature 99.0 F 08/22/16 05:48 Pulse Rate 73 08/22/16 05:48 Respiratory Rate 16 08/22/16 05:48 Blood Pressure 118/71 08/22/16 05:48 O2 Sat by Pulse Oximetry (%) 97 08/21/16 20:00 Constitutional: Yes: No Distress, Calm Neck: Yes: Supple Cardiovascular: Yes: Pulse Irregular Respiratory: Yes: Regular, Diminished Gastrointestinal: Yes: Soft, Hypoactive Bowel Sounds Edema: No Labs: CBC, BMP 08/22/16 06:00 08/22/16 06:00 INR, PTT INR 1.42 (0.82-1.09) H 08/20/16 16:59 - ....Imaging EKG: Report Reviewed (Episodes of tachy-sharon syndrome) Problem List - Problems (1) Sepsis Code(s): A41.9 - SEPSIS, UNSPECIFIED ORGANISM Qualifiers: Sepsis type: sepsis due to unspecified organism Qualified Code(s): A41.9 - Sepsis, unspecified organism (2) Atrial fibrillation Code(s): I48.91 - UNSPECIFIED ATRIAL FIBRILLATION Qualifiers: Atrial fibrillation type: persistent Qualified Code(s): I48.1 - Persistent atrial fibrillation (3) Diastolic dysfunction Code(s): I51.9 - HEART DISEASE, UNSPECIFIED (4) Hyperlipidemia Code(s): E78.5 - HYPERLIPIDEMIA, UNSPECIFIED Qualifiers: Hyperlipidemia type: pure hypercholesterolemia Qualified Code(s): E78.0 - Pure hypercholesterolemia (5) Dementia Code(s): F03.90 - UNSPECIFIED DEMENTIA WITHOUT BEHAVIORAL DISTURBANCE Qualifiers: Dementia type: unspecified type Dementia behavioral disturbance: without behavioral disturbance Qualified Code(s): F03.90 - Unspecified dementia without behavioral disturbance (6) Demand ischemia Code(s): I24.8 - OTHER FORMS OF ACUTE ISCHEMIC HEART DISEASE (7) Coronary artery disease Code(s): I25.10 - ATHSCL HEART DISEASE OF [place] CORONARY ARTERY W/O ANG PCTRS Qualifiers: Coronary Disease-Associated Artery/Lesion type: [place] artery [place] vs. transplanted heart: [place] heart Associated angina: without angina Qualified Code(s): I25.10 - Atherosclerotic heart disease of [place] coronary artery without angina pectoris (8) Anticoagulation adequate with anticoagulant therapy Code(s): Z79.01 - [facility]DC (CURRENT) USE OF ANTICOAGULANTS (9) Abnormal liver enzymes Code(s): R74.8 - ABNORMAL LEVELS OF OTHER SERUM ENZYMES Assessment/Plan 1. Toxic metabolic encephelopathy referable to sepsis with underlying dementia 2. Leukocytosis, demand ischemia, elevated LFT r/o biliary sepsis vs cholestasis of sepsis 3. Persistent afib with tachy-sharon episodes on NOAC 4. CAD demand ischemia referable to #1 5. Diastolic dysfxn with elevated biomarkers 6. Hyperlipidemia 7. H/o breast ca P:1. Empiric zosyn course pending c/s, Liver/ GB sono 2. F/u echo to assess ventricular and valve fxn, trend trops and LFTs 3. Continue Dig 0.125 qd, Imdur 30 qd, Lopressor 50 bid, Xarelto 20 qd and lisinopril 2.5 qd, Lasix 40 qd in AM, Lipitor held pending LFT normalization 4. GI prophylaxis 5. D/w daughter, may require single chamber pacer if AV deandre agents are to be uptitrated for rate-control, will monitor for now
[2016-08-22] MEDS: PANTOPRAZOLE 40 MG TABLET (FP) PO SCH (10:35)
[2016-08-22] MEDS: DIVALPROEX SODIUM 250 MG TABLET E.C. (FP) PO SCH ×2 (10:36→21:21)
[2016-08-22] MEDS: METOPROLOL TARTRATE 50 MG TABLET (FP) PO SCH ×2 (10:36→21:20)
[2016-08-22] MEDS: ISOSORBIDE MONONITRATE 30 MG TAB.SR.24H (FP) PO SCH (10:36)
[2016-08-22] MEDS: ESCITALOPRAM OXALATE 20 MG TABLET (FP) PO SCH (10:37)
[2016-08-22] MEDS: MULTIVITAMINS THER W-MINERALS COMBO TABLET (FP) PO SCH (10:37)
[2016-08-22] MEDS: FUROSEMIDE 40 MG TABLET (FP) PO SCH (10:37)
[2016-08-22] MEDS: RIVAROXABAN 20 MG TABLET PO SCH (10:38)
[2016-08-22] MEDS: CLOTRIMAZOLE 1% CREAM 15 GM TUBE TP SCH ×2 (10:38→21:21)
[2016-08-22] MEDS: ANASTROZOLE 1 MG TABLET PO SCH (10:38)
[2016-08-22] MEDS: POLYETHYLENE GLYCOL 3350 119 GM BTL PO SCH (10:38)
[2016-08-22] MEDS: LISINOPRIL 5 MG TABLET (FP) PO SCH (10:39)
[2016-08-22 13:07] LABS: TROPONIN I 0.05 ng/ml (0.00-0.05)
--- NOTE | 2016-08-22 14:00 | PN ---
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 (short form) - Note 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: pt awake/ comfortable denies pain son at bedside u/s liver- cholecystitis dilated cbd Vital Signs Temp 97.9 F 08/22/16 10:00 Pulse 83 08/22/16 10:00 Resp 20 08/22/16 10:00 BP 125/62 08/22/16 10:00 Pulse Ox 97 08/21/16 20:00 Intake & CBC, BMP 08/22/16 06:00 08/22/16 06:00 CBC,CMP WBC 10.1 K/mm3 (4.0-10.0) H 08/22/16 06:00 RBC 3.30 M/mm3 (3.60-5.2) L 08/22/16 06:00 Hgb 10.6 GM/dL (10.7-15.3) L 08/22/16 06:00 Hct 30.9 % (32.4-45.2) L 08/22/16 06:00 MCV 93.5 fl (80-96) 08/22/16 06:00 MCHC 34.3 g/dl (32.0-36.0) 08/22/16 06:00 RDW 14.1 % (11.6-15.6) 08/22/16 06:00 Plt Count 215 K/MM3 (134-434) 08/22/16 06:00 MPV 8.8 fl (7.5-11.1) 08/22/16 06:00 Neutrophils % 78.8 % (42.8-82.8) 08/22/16 06:00 Lymphocytes % 9.9 % (8-40) D 08/22/16 06:00 Monocytes % 9.7 % (3.8-10.2) 08/22/16 06:00 Eosinophils % 1.3 % (0-4.5) 08/22/16 06:00 Basophils % 0.3 % (0-2.0) 08/22/16 06:00 Band Neutrophils 15.0 % (0-10) H 08/20/16 16:59 Differential Comment Manual diff done 08/20/16 16:59 Platelet Estimate Adequate (NORMAL) 08/20/16 16:59 Sodium 141 mmol/L (136-145) 08/22/16 06:00 Potassium 4.2 mmol/L (3.5-5.1) 08/22/16 06:00 Chloride 102 mmol/L (98-107) 08/22/16 06:00 Carbon Dioxide 33 mmol/L (21-32) H 08/22/16 06:00 Anion Gap 6 (8-16) L 08/22/16 06:00 BUN 26 mg/dL (7-18) H 08/22/16 06:00 Creatinine 0.9 mg/dL (0.55-1.02) 08/22/16 06:00 Creat Clearance w eGFR > 60 (>60) 08/22/16 06:00 Random Glucose 96 mg/dL (74-106) 08/22/16 06:00 Lactic Acid 1.464 mmol/L (0.4-2.0) 08/20/16 20:00 Calcium 8.6 mg/dL (8.5-10.1) 08/22/16 06:00 Phosphorus 3.7 mg/dL (2.5-4.9) 08/20/16 16:59 Magnesium 1.8 mg/dL (1.8-2.4) 08/20/16 16:59 Total Bilirubin 1.2 mg/dL (0.2-1.0) H D 08/22/16 06:00 Direct Bilirubin 0.4 mg/dL (0.0-0.2) H 08/22/16 06:00 AST 119 U/L (15-37) H D 08/22/16 06:00 ALT 209 U/L (12-78) H D 08/22/16 06:00 Alkaline Phosphatase 273 U/L (45-117) H 08/22/16 06:00 Creatine Kinase 77 IU/L (26-192) 08/22/16 06:00 Troponin I 0.05 ng/ml (0.00-0.05) 08/22/16 06:00 B-Natriuretic Peptide 14564.99 pg/ml (5-450) H 08/20/16 16:59 Total Protein 5.5 g/dl (6.4-8.2) L 08/22/16 06:00 Albumin 2.5 g/dl (3.4-5.0) L 08/22/16 06:00 Active Medications Anastrozole (Arimidex -) 1 mg PO DAILY [facility] Last Admin: 08/21/16 10:24 Dose: 1 mg Clonazepam (Klonopin -) 0.5 mg PO TID [facility] Last Admin: 08/22/16 05:36 Dose: Not Given Clotrimazole (Lotrimin 1% Cream -) 1 applic TP BID [facility] Last Admin: 08/21/16 22:40 Dose: 1 applic Divalproex Sodium (Depakote -) 250 mg PO BID [facility] Donepezil HCl (Aricept -) 10 mg PO HS [facility] Last Admin: 08/21/16 22:40 Dose: 10 mg Escitalopram Oxalate (Lexapro -) 20 mg PO DAILY [facility] Last Admin: 08/21/16 09:45 Dose: 20 mg Furosemide (Lasix -) 40 mg PO DAILY [facility] Piperacillin Sod/Tazobactam Sod (Zosyn 3.375gm Ivpb (Pre-Docked)) 50 mls @ 100 mls/hr IVPB Q8H-IV [facility] PRN Reason: Protocol Last Admin: 08/22/16 10:03 Dose: 100 mls/hr Isosorbide Mononitrate (Imdur -) 30 mg PO DAILY [facility] Last Admin: 08/21/16 09:48 Dose: 30 mg Lisinopril (Prinivil) 2.5 mg PO DAILY [facility] Last Admin: 08/21/16 09:45 Dose: 2.5 mg Melatonin (Melatonin) 2 mg PO HS [facility] Last Admin: 08/21/16 22:40 Dose: 2 mg Metoprolol Tartrate (Lopressor -) 50 mg PO BID [facility] Last Admin: 08/21/16 22:40 Dose: 50 mg Multivitamins/Minerals (Theragran-M) 1 each PO DAILY [facility] Last Admin: 08/21/16 09:47 Dose: 1 each Pantoprazole Sodium (Protonix -) 40 mg PO DAILY [facility] Last Admin: 08/21/16 12:34 Dose: 40 mg Polyethylene Glycol (Miralax (For Daily Use) -) 17 gm PO DAILY [facility] Last Admin: 08/21/16 12:34 Dose: 17 grams Rivaroxaban (Xarelto -) 20 mg PO DAILY [facility] Last Admin: 08/21/16 09:45 Dose: 20 mg Output 08/21/16 08/22/16 08/22/16 23:59 11:59 23:59 Intake Total 650 620 250 Output Total 250 275 Balance 400 345 250 Intake: IV 120 18 L WRIST 08/20 120 IVPB 200 Oral 650 300 250 Output: Urine 250 275 Hicks 250 275 Other: Voiding Method Indwelling Catheter Indwelling Catheter Indwelling Catheter # Unmeasured Voids Hicks 100 Bowel Movement No No No Microbiology 08/20/16 17:32 Urine Culture - Preliminary Urine - Urine - Catheterized Lactose Fermenting Neg Bacilli Non Lactose Fermenting Gnb 08/20/16 16:59 Blood Culture - Preliminary Blood - Peripheral Venous NO GROWTH OBTAINED AFTER 24 HOURS, INCUBATION TO CONTINUE FOR 4 DAYS. 08/20/16 16:59 Blood Culture - Preliminary Blood - Peripheral Venous NO GROWTH OBTAINED AFTER 24 HOURS, INCUBATION TO CONTINUE FOR 4 DAYS. 08/21/16 18:00 Respiratory Virus Panel - Preliminary Nasopharyngeal Swab Physical Examination Constitutional: Yes: No Distress, Calm Eyes: Yes: Conjunctiva Clear HENT: Yes: WNL Neck: Yes: Supple, Trachea Midline Cardiovascular: Yes: Pulse Irregular Respiratory: Yes: Diminished Gastrointestinal: Yes: Normal Bowel Sounds, Soft Edema: No Neurological: Yes: Alert Psychiatric: Yes: Alert a/p Abx wbc trending down f/u cultures po protonix meds reviewed f/u labs/ lfts echo u/s gall bladder/ liver--reviewed hida scan will need MRCP oob - chair pt is DNR Will follow Discussed with pts son who is at bedside--ALL FINDINGS DISCUSSED Will consult gi and surgery likely need cholecystectomy after mrcp - may need ercp Problem List - Problems (1) Sepsis Code(s): A41.9 - SEPSIS, UNSPECIFIED ORGANISM Qualifiers: Sepsis type: sepsis due to unspecified organism Qualified Code(s): A41.9 - Sepsis, unspecified organism
--- NOTE | 2016-08-22 14:13 | PN ---
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, Physician History of Present Illness: Awake and responsive but confused No complaints No c/o abdominal pain Low grade fever WBC improved LFTs remain elevated Sonogram suggestive of acute cholecystitis Urine c/s LF/NLF - Current Medication List Current Medications: Active Medications Anastrozole (Arimidex -) 1 mg PO DAILY [facility] Last Admin: 08/21/16 10:24 Dose: 1 mg Clonazepam (Klonopin -) 0.5 mg PO TID [facility] Last Admin: 08/22/16 05:36 Dose: Not Given Clotrimazole (Lotrimin 1% Cream -) 1 applic TP BID [facility] Last Admin: 08/21/16 22:40 Dose: 1 applic Divalproex Sodium (Depakote -) 250 mg PO BID [facility] Donepezil HCl (Aricept -) 10 mg PO HS [facility] Last Admin: 08/21/16 22:40 Dose: 10 mg Escitalopram Oxalate (Lexapro -) 20 mg PO DAILY [facility] Last Admin: 08/21/16 09:45 Dose: 20 mg Furosemide (Lasix -) 40 mg PO DAILY [facility] Piperacillin Sod/Tazobactam Sod (Zosyn 3.375gm Ivpb (Pre-Docked)) 50 mls @ 100 mls/hr IVPB Q8H-IV [facility] PRN Reason: Protocol Last Admin: 08/22/16 10:03 Dose: 100 mls/hr Isosorbide Mononitrate (Imdur -) 30 mg PO DAILY [facility] Last Admin: 08/21/16 09:48 Dose: 30 mg Lisinopril (Prinivil) 2.5 mg PO DAILY [facility] Last Admin: 08/21/16 09:45 Dose: 2.5 mg Melatonin (Melatonin) 2 mg PO HS [facility] Last Admin: 08/21/16 22:40 Dose: 2 mg Metoprolol Tartrate (Lopressor -) 50 mg PO BID [facility] Last Admin: 08/21/16 22:40 Dose: 50 mg Multivitamins/Minerals (Theragran-M) 1 each PO DAILY [facility] Last Admin: 08/21/16 09:47 Dose: 1 each Pantoprazole Sodium (Protonix -) 40 mg PO DAILY [facility] Last Admin: 08/21/16 12:34 Dose: 40 mg Polyethylene Glycol (Miralax (For Daily Use) -) 17 gm PO DAILY [facility] Last Admin: 08/21/16 12:34 Dose: 17 grams Rivaroxaban (Xarelto -) 20 mg PO DAILY [facility] Last Admin: 08/21/16 09:45 Dose: 20 mg - Objective Vital Signs: Vital Signs Temperature 97.9 F 08/22/16 10:00 Pulse Rate 83 08/22/16 10:00 Respiratory Rate 20 08/22/16 10:00 Blood Pressure 125/62 08/22/16 10:00 O2 Sat by Pulse Oximetry (%) 97 08/21/16 20:00 Constitutional: Yes: No Distress Eyes: Yes: Conjunctiva Clear Cardiovascular: Yes: Regular Rate and Rhythm, S1, S2 Respiratory: Yes: Diminished Gastrointestinal: Yes: Normal Bowel Sounds, Soft, Abdomen, Obese, Other ( abdomen slightly distended, tympanitic No RUQ tenderness elicited). No: Tenderness Edema: No Labs: CBC, BMP 08/22/16 06:00 08/22/16 06:00 INR, PTT INR 1.42 (0.82-1.09) H 08/20/16 16:59 Assessment/Plan Fever/ leukocytosis / elevated LFTs/ hx vomiting- possible acute cholecystitis UTI Possible sepsis secondary to biliary v. urinary tract Continue empiric zosyn Surgical evaluation
--- NOTE | 2016-08-22 14:33 | PN ---
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 (short form) - Note 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: Vital Signs Temp 97.9 F 08/22/16 10:00 Pulse 83 08/22/16 10:00 Resp 20 08/22/16 10:00 BP 125/62 08/22/16 10:00 Pulse Ox 97 08/21/16 20:00 Intake & Output 08/21/16 08/22/16 08/22/16 23:59 11:59 23:59 Intake Total 650 620 250 Output Total 250 275 Balance 400 345 250 Intake: IV 120 18 L WRIST 08/20 120 IVPB 200 Oral 650 300 250 Output: Urine 250 275 Hicks 250 275 Other: Voiding Method Indwelling Catheter Indwelling Catheter Indwelling Catheter # Unmeasured Voids Hicks 100 Bowel Movement No No No Active Medications Anastrozole (Arimidex -) 1 mg PO DAILY [facility] Last Admin: 08/21/16 10:24 Dose: 1 mg Clonazepam (Klonopin -) 0.5 mg PO TID [facility] Last Admin: 08/22/16 05:36 Dose: Not Given Clotrimazole (Lotrimin 1% Cream -) 1 applic TP BID [facility] Last Admin: 08/21/16 22:40 Dose: 1 applic Divalproex Sodium (Depakote -) 250 mg PO BID [facility] Donepezil HCl (Aricept -) 10 mg PO HS [facility] Last Admin: 08/21/16 22:40 Dose: 10 mg Escitalopram Oxalate (Lexapro -) 20 mg PO DAILY [facility] Last Admin: 08/21/16 09:45 Dose: 20 mg Furosemide (Lasix -) 40 mg PO DAILY [facility] Piperacillin Sod/Tazobactam Sod (Zosyn 3.375gm Ivpb (Pre-Docked)) 50 mls @ 100 mls/hr IVPB Q8H-IV [facility] PRN Reason: Protocol Last Admin: 08/22/16 10:03 Dose: 100 mls/hr Isosorbide Mononitrate (Imdur -) 30 mg PO DAILY [facility] Last Admin: 08/21/16 09:48 Dose: 30 mg Lisinopril (Prinivil) 2.5 mg PO DAILY [facility] Last Admin: 08/21/16 09:45 Dose: 2.5 mg Melatonin (Melatonin) 2 mg PO HS [facility] Last Admin: 08/21/16 22:40 Dose: 2 mg Metoprolol Tartrate (Lopressor -) 50 mg PO BID [facility] Last Admin: 08/21/16 22:40 Dose: 50 mg Multivitamins/Minerals (Theragran-M) 1 each PO DAILY [facility] Last Admin: 08/21/16 09:47 Dose: 1 each Pantoprazole Sodium (Protonix -) 40 mg PO DAILY [facility] Last Admin: 08/21/16 12:34 Dose: 40 mg Polyethylene Glycol (Miralax (For Daily Use) -) 17 gm PO DAILY [facility] Last Admin: 08/21/16 12:34 Dose: 17 grams Rivaroxaban (Xarelto -) 20 mg PO DAILY [facility] Last Admin: 08/21/16 09:45 Dose: 20 mg CBC, BMP 08/22/16 06:00 08/22/16 06:00 Problem List - Problems (1) Sepsis Code(s): A41.9 - SEPSIS, UNSPECIFIED ORGANISM Qualifiers: Sepsis type: sepsis due to unspecified organism Qualified Code(s): A41.9 - Sepsis, unspecified organism
--- NOTE | 2016-08-22 15:30 | CONSULT ---
Consult Consult Specialty:: Surgery Referred by:: Tyrone Paniagua Reason for Consultation:: cholelithiasis, ? cholangitis, elevated liver functions. - History of Present Illness Chief Complaint: 75 year old woman from [facility] is admitted with sepsis , lactic acidosis , and is found to have cholelithiasis, dilated common bile duct and abnormal liver functions. - Past Medical History [employer] INS[employer]OR: Yes: Dementia Cardio/Vascular: Yes: AFIB, CHF Gastrointestinal: Yes: Other (Appendectomy at age 4 and, reexploration, laparotomy 5 years ago) Hepatobiliary: Yes: Cholecystitis (son gives h/o cholecystitits in past) - Past Surgical History Past Surgical History: Yes: Mastectomy (left sided) - Alcohol/Substance Use Hx Alcohol Use: No - Smoking History Smoking history: Never smoked Have you smoked in the past 12 months: No Home Medications - Allergies Allergies/Adverse Reactions: Allergies Allergy/AdvReac Type Severity Reaction Status Date / Time No Known Allergies Allergy Verified 08/20/16 16:15 - Home Medications Home Medications: Ambulatory Orders Acetaminophen [Tylenol -] 650 mg PO Q8H 08/20/16 Anastrozole [Arimidex -] 1 mg PO DAILY 08/20/16 Atorvastatin Ca [Lipitor] 10 mg PO HS 08/20/16 Clonazepam [KlonoPIN] 0.5 mg PO TID 08/20/16 Clotrimazole [Lotrimin 1% Cream -] 1 applic TP BID 08/20/16 Digoxin [Digitek] 125 mcg PO ASDIR 08/20/16 Divalproex [Depakote -] 250 mg PO BID 08/20/16 Donepezil HCl [Aricept -] 10 mg PO HS 08/20/16 Escitalopram Oxalate [Lexapro -] 20 mg PO DAILY 08/20/16 Furosemide [Lasix] 40 mg PO DAILY 08/20/16 Isosorbide Mononitrate [Isosorbide Mononitrate ER] 30 mg PO DAILY 08/20/16 Lisinopril [Zestril] 2.5 mg PO DAILY 08/20/16 Melatonin 2 mg PO HS 08/20/16 Metoprolol Tartrate [Lopressor -] 50 mg PO BID 08/20/16 Multivitamin with Minerals [Icaps Plus] 1 each PO DAILY 08/20/16 Polyethylene Glycol 3350 [Gavilax] 17 gm PO DAILY 08/20/16 Rivaroxaban [Xarelto -] 20 mg PO DAILY 08/20/16 Review of Systems - Review of Systems Constitutional: reports: No Symptoms Eyes: reports: No Symptoms Physical Exam Vital Signs: Vital Signs Temperature 97.9 F 08/22/16 10:00 Pulse Rate 83 08/22/16 10:00 Respiratory Rate 20 08/22/16 10:00 Blood Pressure 125/62 08/22/16 10:00 O2 Sat by Pulse Oximetry (%) 97 08/21/16 20:00 Gastrointestinal: Yes: Other (Abdomen is soft, not tender, no palpable mass, Scar of appendectomy in right lower quadrant of abdomen.) Labs: CBC, BMP 08/22/16 06:00 08/22/16 06:00 Imaging - Results Ultrasound: Report Reviewed, Image Reviewed (Cholelithiasis, dilated common bile duct.) Problem List - Problems (1) Cholelithiasis Code(s): K80.20 - CALCULUS OF GALLBLADDER W/O CHOLECYSTITIS W/O OBSTRUCTION Qualifiers: Cholelithiasis location: gallbladder and bile duct Biliary obstruction : with biliary obstruction (2) Abnormal liver function Code(s): K76.89 - OTHER SPECIFIED DISEASES OF LIVER (3) Dilated bile duct Code(s): K83.8 - OTHER SPECIFIED DISEASES OF BILIARY TRACT Assessment/Plan Cholelithiasis, Dilated common bile duct, Atrial fibrillation , CHF, Abnormal liver enzymes, R/O Common bile duct calculi with obstruction. Plan : MRCP , if common bile duct stone is seen or suspicious, will need ERCP , followed by cholecystectomy, if no CBD stone, then plan Cholecystectomy. I have explained to the patient and her daughter who is with her.
[2016-08-22] MEDS: DONEPEZIL HCL 10 MG TABLET (FP) PO SCH (21:20)
[2016-08-22] MEDS: MELATONIN 1 MG TABLET PO SCH (21:21)
[2016-08-23] MEDS: PIPERACILLIN/TAZOB 3.375 GM 50 ML IVPB SCH ×3 (01:28→17:13)
[2016-08-23] MEDS: clonazePAM 0.5 MG TABLET PO SCH ×4 (06:52→22:36)
[2016-08-23 07:42] LABS: BASOPHIL 0.6 % (0-2.0); EOSINOPHIL 4.2 % (0-4.5); MCHC 34.1 g/dl (32.0-36.0); MEAN PLT VOLUME 8.9 fl (7.5-11.1); NEUTROPHILS 69.2 % (42.8-82.8); PLATELET COUNT 213 K/MM3 (134-434); RDW 13.8 % (11.6-15.6); WHITE BLOOD COUNT 8.7 K/mm3 (4.0-10.0)
[2016-08-23 08:55] LABS: ALBUMIN 2.4 g/dl (3.4-5.0); ANION GAP 7 (8-16); CALCIUM 8.3 mg/dL (8.5-10.1); CO2 33 mmol/L (21-32); CREATININE 0.7 mg/dL (0.55-1.02); GLUCOSE,RANDOM 88 mg/dL (74-106); SGOT/AST 62 U/L (15-37); SGPT/ALT 150 U/L (12-78)
[2016-08-23 08:57] LABS: ALK PHOS 255 U/L (45-117); BILIRUBIN,TOTAL 0.8 mg/dL (0.2-1.0); TOT PROT 5.6 g/dl (6.4-8.2)
--- NOTE | 2016-08-23 09:25 | PN ---
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 (short form) - Note 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: Subjective Patient seen and examined. Comfortable. Just came back from HIDA scan Denies pain. Objective Last Vital Signs Temp Pulse Resp BP Pulse Ox 98.1 F 85 18 136/86 95 08/23/16 06:00 08/23/16 06:00 08/23/16 06:00 08/23/16 06:00 08/22/16 21:00 CBC, BMP 08/23/16 05:35 08/23/16 05:35 Laboratory Results - last 24 hr 08/22/16 08/23/16 08/23/16 06:00 05:35 05:35 WBC 8.7 RBC 3.41 L Hgb 10.9 Hct 32.0 L MCV 94.0 MCHC 34.1 RDW 13.8 Plt Count 213 MPV 8.9 Neutrophils % 69.2 Lymphocytes % 15.6 D Monocytes % 10.4 H Eosinophils % 4.2 D Basophils % 0.6 Sodium 137 Potassium 3.9 Chloride 97 L Carbon Dioxide 33 H Anion Gap 7 L BUN 19 H D Creatinine 0.7 D Creat Clearance w eGFR > 60 Random Glucose 88 Calcium 8.3 L Total Bilirubin 0.8 AST 62 H D ALT 150 H D Alkaline Phosphatase 255 H Creatine Kinase 77 Troponin I 0.05 Total Protein 5.6 L Albumin 2.4 L Total Amylase 55 Lipase 167 08/23/16 05:35 WBC RBC Hgb Hct MCV MCHC RDW Plt Count MPV Neutrophils % Lymphocytes % Monocytes % Eosinophils % Basophils % Sodium Potassium Chloride Carbon Dioxide Anion Gap BUN Creatinine Creat Clearance w eGFR Random Glucose Calcium Total Bilirubin AST ALT Alkaline Phosphatase Creatine Kinase Troponin I Total Protein Albumin Total Amylase Cancelled Lipase Cancelled Physical Exam Constitutional: Yes: No Distress, Calm Eyes: Yes: Conjunctiva Clear HENT: Yes: WNL Neck: Yes: Supple, Trachea Midline Cardiovascular: Yes: Pulse Irregular Respiratory: Yes: Diminished Gastrointestinal: Yes: Normal Bowel Sounds, Soft Edema: No Neurological: Yes: Alert Psychiatric: Yes: Alert Assessment and Plan Abx wbc trending down f/u cultures po protonix meds reviewed f/u labs/ lfts trending down echo pending hida scan done today will need MRCP--- scheduled for today oob - chair pt is DNR Will follow Discussed with pts son who is at bedside--ALL FINDINGS DISCUSSED Will consult gi and surgery likely need cholecystectomy after mrcp - may need ercp-- GI eval pending Documentation prepared by uLcila Arzate, acting as a medical equipment sales for Sasha Paniagua MD. <Lucila Arzate - Last Filed: 08/23/16 10:46> Problem List - Problems (1) Sepsis Code(s): A41.9 - SEPSIS, UNSPECIFIED ORGANISM Qualifiers: Sepsis type: sepsis due to unspecified organism Qualified Code(s): A41.9 - Sepsis, unspecified organism <Sasha Paniagua - Last Filed: 08/23/16 09:25>
[2016-08-23 09:51] LABS: AMYLASE 55 U/L (25-115)
[2016-08-23] MEDS: LISINOPRIL 5 MG TABLET (FP) PO SCH (10:50)
[2016-08-23] MEDS: ISOSORBIDE MONONITRATE 30 MG TAB.SR.24H (FP) PO SCH (10:50)
[2016-08-23] MEDS: ESCITALOPRAM OXALATE 20 MG TABLET (FP) PO SCH (10:51)
[2016-08-23] MEDS: FUROSEMIDE 40 MG TABLET (FP) PO SCH (10:51)
[2016-08-23] MEDS: RIVAROXABAN 20 MG TABLET PO SCH (10:51)
[2016-08-23] MEDS: METOPROLOL TARTRATE 50 MG TABLET (FP) PO SCH ×2 (10:51→22:57)
[2016-08-23] MEDS: MULTIVITAMINS THER W-MINERALS COMBO TABLET (FP) PO SCH (10:51)
[2016-08-23] MEDS: PANTOPRAZOLE 40 MG TABLET (FP) PO SCH (10:51)
[2016-08-23] MEDS: DIVALPROEX SODIUM 250 MG TABLET E.C. (FP) PO SCH ×2 (10:52→22:57)
[2016-08-23] MEDS: CLOTRIMAZOLE 1% CREAM 15 GM TUBE TP SCH ×2 (10:52→22:57)
[2016-08-23] MEDS: ANASTROZOLE 1 MG TABLET PO SCH (10:53)
[2016-08-23] MEDS: POLYETHYLENE GLYCOL 3350 119 GM BTL PO SCH (11:04)
--- NOTE | 2016-08-23 13:30 | PN ---
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, Physician Chief Complaint: Patient is comfortable. Her son is by her side. She is afebrile and comfortable. - Current Medication List Current Medications: Active Medications Anastrozole (Arimidex -) 1 mg PO DAILY [facility] Last Admin: 08/23/16 10:53 Dose: 1 mg Clonazepam (Klonopin -) 0.5 mg PO TID [facility] Last Admin: 08/23/16 13:19 Dose: 0.5 mg Clotrimazole (Lotrimin 1% Cream -) 1 applic TP BID [facility] Last Admin: 08/23/16 10:52 Dose: 1 applic Divalproex Sodium (Depakote -) 250 mg PO BID [facility] Last Admin: 08/23/16 10:52 Dose: 250 mg Donepezil HCl (Aricept -) 10 mg PO HS [facility] Last Admin: 08/22/16 21:20 Dose: 10 mg Escitalopram Oxalate (Lexapro -) 20 mg PO DAILY [facility] Last Admin: 08/23/16 10:51 Dose: 20 mg Furosemide (Lasix -) 40 mg PO DAILY [facility] Last Admin: 08/23/16 10:51 Dose: 40 mg Piperacillin Sod/Tazobactam Sod (Zosyn 3.375gm Ivpb (Pre-Docked)) 50 mls @ 100 mls/hr IVPB Q8H-IV [facility] PRN Reason: Protocol Last Admin: 08/23/16 10:52 Dose: 100 mls/hr Isosorbide Mononitrate (Imdur -) 30 mg PO DAILY [facility] Last Admin: 08/23/16 10:50 Dose: 30 mg Lisinopril (Prinivil) 2.5 mg PO DAILY [facility] Last Admin: 08/23/16 10:50 Dose: 2.5 mg Melatonin (Melatonin) 2 mg PO HS [facility] Last Admin: 08/22/16 21:21 Dose: 2 mg Metoprolol Tartrate (Lopressor -) 50 mg PO BID [facility] Last Admin: 08/23/16 10:51 Dose: 50 mg Multivitamins/Minerals (Theragran-M) 1 each PO DAILY [facility] Last Admin: 08/23/16 10:51 Dose: 1 each Pantoprazole Sodium (Protonix -) 40 mg PO DAILY [facility] Last Admin: 08/23/16 10:51 Dose: 40 mg Polyethylene Glycol (Miralax (For Daily Use) -) 17 gm PO DAILY [facility] Last Admin: 08/23/16 11:04 Dose: Not Given Rivaroxaban (Xarelto -) 20 mg PO DAILY [facility] Last Admin: 08/23/16 10:51 Dose: 20 mg - Objective Vital Signs: Vital Signs Temperature 98 F 08/23/16 10:00 Pulse Rate 88 08/23/16 10:00 Respiratory Rate 18 08/23/16 10:00 Blood Pressure 103/67 08/23/16 10:00 O2 Sat by Pulse Oximetry (%) 97 08/23/16 09:00 Labs: CBC, BMP 08/23/16 05:35 08/23/16 05:35 INR, PTT INR 1.42 (0.82-1.09) H 08/20/16 16:59 Problem List - Problems (1) Cholelithiasis Code(s): K80.20 - CALCULUS OF GALLBLADDER W/O CHOLECYSTITIS W/O OBSTRUCTION Qualifiers: Cholelithiasis location: gallbladder and bile duct Biliary obstruction : with biliary obstruction (2) Abnormal liver function Code(s): K76.89 - OTHER SPECIFIED DISEASES OF LIVER (3) Dilated bile duct Code(s): K83.8 - OTHER SPECIFIED DISEASES OF BILIARY TRACT Assessment/Plan Cholelithiasis, with acute cholecystitis. Admitted with sepsis, lactic acidosis, and abnormal liver enzymes, dilated biliaryb ductal system. Suggestive of cholangitis, with some biliary obstruction. Hida scan was reviewed with Dr. Butler. There is filling of the gallbladder , and contrast in the small bowel without delay. However the extrahepatic biliary ductal sysytem is dilated , and she has persistent , elevated alkaline phosphatase. AST and Alt is improving. ? persistent partial obstruction of the biliary ductal system , ? secondary ti commonb bile duct system. She is scheduled for MRCP today. If there are no stones in the common bile duct and ERCp is not contemplated , she will undergo cholecystectomy on 08/25/2016,Tuesday. She has cholelithiasis, and another attack of cholangitis , might cause significant morbidity. I have explained to the patients son.
--- NOTE | 2016-08-23 14:19 | PN ---
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, Physician History of Present Illness: Awake but confused Offers no complaints Temps down afebrile WBC improved LFTs improving HIDA results noted - Current Medication List Current Medications: Active Medications Anastrozole (Arimidex -) 1 mg PO DAILY [facility] Last Admin: 08/23/16 10:53 Dose: 1 mg Clonazepam (Klonopin -) 0.5 mg PO TID [facility] Last Admin: 08/23/16 13:19 Dose: 0.5 mg Clotrimazole (Lotrimin 1% Cream -) 1 applic TP BID [facility] Last Admin: 08/23/16 10:52 Dose: 1 applic Divalproex Sodium (Depakote -) 250 mg PO BID [facility] Last Admin: 08/23/16 10:52 Dose: 250 mg Donepezil HCl (Aricept -) 10 mg PO HS [facility] Last Admin: 08/22/16 21:20 Dose: 10 mg Escitalopram Oxalate (Lexapro -) 20 mg PO DAILY [facility] Last Admin: 08/23/16 10:51 Dose: 20 mg Furosemide (Lasix -) 40 mg PO DAILY [facility] Last Admin: 08/23/16 10:51 Dose: 40 mg Piperacillin Sod/Tazobactam Sod (Zosyn 3.375gm Ivpb (Pre-Docked)) 50 mls @ 100 mls/hr IVPB Q8H-IV [facility] PRN Reason: Protocol Last Admin: 08/23/16 10:52 Dose: 100 mls/hr Isosorbide Mononitrate (Imdur -) 30 mg PO DAILY [facility] Last Admin: 08/23/16 10:50 Dose: 30 mg Lisinopril (Prinivil) 2.5 mg PO DAILY [facility] Last Admin: 08/23/16 10:50 Dose: 2.5 mg Melatonin (Melatonin) 2 mg PO HS [facility] Last Admin: 08/22/16 21:21 Dose: 2 mg Metoprolol Tartrate (Lopressor -) 50 mg PO BID [facility] Last Admin: 08/23/16 10:51 Dose: 50 mg Multivitamins/Minerals (Theragran-M) 1 each PO DAILY [facility] Last Admin: 08/23/16 10:51 Dose: 1 each Pantoprazole Sodium (Protonix -) 40 mg PO DAILY [facility] Last Admin: 08/23/16 10:51 Dose: 40 mg Polyethylene Glycol (Miralax (For Daily Use) -) 17 gm PO DAILY [facility] Last Admin: 08/23/16 11:04 Dose: Not Given Rivaroxaban (Xarelto -) 20 mg PO DAILY [facility] Last Admin: 08/23/16 10:51 Dose: 20 mg - Objective Vital Signs: Vital Signs Temperature 98 F 08/23/16 10:00 Pulse Rate 88 08/23/16 10:00 Respiratory Rate 18 08/23/16 10:00 Blood Pressure 103/67 08/23/16 10:00 O2 Sat by Pulse Oximetry (%) 97 08/23/16 09:00 Constitutional: Yes: No Distress Eyes: Yes: Conjunctiva Clear Cardiovascular: Yes: Regular Rate and Rhythm, S1, S2 Respiratory: Yes: CTA Bilaterally, Diminished Gastrointestinal: Yes: Normal Bowel Sounds, Soft. No: Tenderness Edema: No Labs: CBC, BMP 08/23/16 05:35 08/23/16 05:35 INR, PTT INR 1.42 (0.82-1.09) H 08/20/16 16:59 Assessment/Plan Fever/ leukocytosis / elevated LFTs/ hx vomiting- possible acute cholecystitis UTI Possible sepsis secondary to biliary v. urinary tract Continue empiric zosyn For MRCP
[2016-08-23] MEDS: ACETAMINOPHEN 325 MG TABLET (FP) PO PRN (16:30)
[2016-08-23] MEDS ORDERED: ACETAMINOPHEN 325 MG TABLET (FP) ONE (17:06)
--- NOTE | 2016-08-23 17:53 | CON.GI ---
Consult Consult Specialty:: gastroenterology Referred by:: Dr Sasha Paniagua - History of Present Illness History of Present Illness: information obtained from his son and medical record. 75 y/o female with PMH of CHF and atrial fibrillation,DNR/DNI was doing well until days ago when she was developed with abdominal pain, nausea,vomiting and fever. In the ER the WBC was 25,000 associated with elevated liver enzymes. SHe received IV hydration and antibiotics. Abdominal ultrasound revealed dilated CBD to 1.3 cm. Today patient is asymptomatic. - Past Medical History [employer]UR[employer]: Yes: Dementia Cardio/Vascular: Yes: AFIB, CHF Gastrointestinal: Yes: Other (Appendectomy at age 4 and, reexploration, laparotomy 5 years ago) Hepatobiliary: Yes: Cholecystitis (son gives h/o cholecystitits in past) - Past Surgical History Past Surgical History: Yes: Mastectomy (left sided) - Alcohol/Substance Use Hx Alcohol Use: No - Smoking History Smoking history: Never smoked Have you smoked in the past 12 months: No Home Medications - Allergies Allergies/Adverse Reactions: Allergies Allergy/AdvReac Type Severity Reaction Status Date / Time No Known Allergies Allergy Verified 08/20/16 16:15 - Home Medications Home Medications: Ambulatory Orders Acetaminophen [Tylenol -] 650 mg PO Q8H 08/20/16 Anastrozole [Arimidex -] 1 mg PO DAILY 08/20/16 Atorvastatin Ca [Lipitor] 10 mg PO HS 08/20/16 Clonazepam [KlonoPIN] 0.5 mg PO TID 08/20/16 Clotrimazole [Lotrimin 1% Cream -] 1 applic TP BID 08/20/16 Digoxin [Digitek] 125 mcg PO ASDIR 08/20/16 Divalproex [Depakote -] 250 mg PO BID 08/20/16 Donepezil HCl [Aricept -] 10 mg PO HS 08/20/16 Escitalopram Oxalate [Lexapro -] 20 mg PO DAILY 08/20/16 Furosemide [Lasix] 40 mg PO DAILY 08/20/16 Isosorbide Mononitrate [Isosorbide Mononitrate ER] 30 mg PO DAILY 08/20/16 Lisinopril [Zestril] 2.5 mg PO DAILY 08/20/16 Melatonin 2 mg PO HS 08/20/16 Metoprolol Tartrate [Lopressor -] 50 mg PO BID 08/20/16 Multivitamin with Minerals [Icaps Plus] 1 each PO DAILY 08/20/16 Polyethylene Glycol 3350 [Gavilax] 17 gm PO DAILY 08/20/16 Rivaroxaban [Xarelto -] 20 mg PO DAILY 08/20/16 Review of Systems Unable to obtain ROS, reason: dementia Physical Exam-GI Vital Signs: Vital Signs Temperature 99.3 F 08/23/16 15:14 Pulse Rate 78 08/23/16 15:14 Respiratory Rate 20 08/23/16 15:14 Blood Pressure 102/48 08/23/16 15:14 O2 Sat by Pulse Oximetry (%) 97 08/23/16 09:00 Constitutional: Yes: Other (confused) Eyes: Yes: Conjunctiva Clear HENT: Yes: Atraumatic Cardiovascular: Yes: Regular Rate and Rhythm Respiratory: Yes: CTA Bilaterally ...Auscultate: Yes: No Bowel Sounds ...Palpate: Yes: Soft. No: Firm/Rigid, Guarding, Hepatomegaly, Mass, Pulsatile Mass, Splenomegaly, Tenderness Labs: CBC, BMP 08/23/16 05:35 08/23/16 05:35 INR, PTT INR 1.42 (0.82-1.09) H 08/20/16 16:59 Hepatic Panel Total Bilirubin 0.8 mg/dL (0.2-1.0) 08/23/16 05:35 Direct Bilirubin 0.4 mg/dL (0.0-0.2) H 08/22/16 06:00 AST 62 U/L (15-37) H D 08/23/16 05:35 ALT 150 U/L (12-78) H D 08/23/16 05:35 Alkaline Phosphatase 255 U/L (45-117) H 08/23/16 05:35 Albumin 2.4 g/dl (3.4-5.0) L 08/23/16 05:35 Imaging - Results Other: Image Reviewed (HIDa scan--negative, no cystic duct obstruction) Problem List - Problems (1) Acute cholangitis Assessment/Plan: --resolving R> await MRCP, suspect CBD stone as patient has persistent elevation of LFTS will need medical clearance for possible ERCP--patients son was made aware vit K 10mg IM x 1 Code(s): K83.0 - CHOLANGITIS
[2016-08-23] MEDS ORDERED: PHYTONADIONE 10 MG/1 ML AMP IM ONE (18:00)
[2016-08-23] MEDS: DONEPEZIL HCL 10 MG TABLET (FP) PO SCH (22:57)
[2016-08-23] MEDS: MELATONIN 1 MG TABLET PO SCH (22:58)
[2016-08-24] MEDS: PIPERACILLIN/TAZOB 3.375 GM 50 ML IVPB SCH ×3 (03:03→17:24)
[2016-08-24] MEDS: clonazePAM 0.5 MG TABLET PO SCH ×3 (06:46→21:50)
[2016-08-24] MEDS: DIVALPROEX SODIUM 250 MG TABLET E.C. (FP) PO SCH ×2 (10:02→21:50)
[2016-08-24] MEDS: ESCITALOPRAM OXALATE 20 MG TABLET (FP) PO SCH (10:02)
[2016-08-24] MEDS: MULTIVITAMINS THER W-MINERALS COMBO TABLET (FP) PO SCH (10:02)
[2016-08-24] MEDS: FUROSEMIDE 40 MG TABLET (FP) PO SCH (10:02)
[2016-08-24] MEDS: ISOSORBIDE MONONITRATE 30 MG TAB.SR.24H (FP) PO SCH (10:02)
[2016-08-24] MEDS: ANASTROZOLE 1 MG TABLET PO SCH (10:03)
[2016-08-24] MEDS: LISINOPRIL 5 MG TABLET (FP) PO SCH (10:03)
[2016-08-24] MEDS: PANTOPRAZOLE 40 MG TABLET (FP) PO SCH (10:03)
[2016-08-24] MEDS: CLOTRIMAZOLE 1% CREAM 15 GM TUBE TP SCH ×2 (10:04→22:12)
[2016-08-24] MEDS: RIVAROXABAN 20 MG TABLET PO SCH (10:04)
[2016-08-24] MEDS: METOPROLOL TARTRATE 50 MG TABLET (FP) PO SCH ×2 (10:05→21:51)
[2016-08-24] MEDS: POLYETHYLENE GLYCOL 3350 119 GM BTL PO SCH (10:05)
--- NOTE | 2016-08-24 10:11 | PN ---
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, Physician Chief Complaint: Events noted Daughter at bedside Pt is sleepy but awakens when abdomen is palpated Eckert removed yesterday but bladder scan showed 280cc urine Has good appetite - Current Medication List Current Medications: Active Medications Acetaminophen (Tylenol -) 650 mg PO Q4H PRN PRN Reason: FEVER > 101 Last Admin: 08/23/16 16:30 Dose: 650 mg Anastrozole (Arimidex -) 1 mg PO DAILY [facility] Last Admin: 08/24/16 10:03 Dose: 1 mg Clonazepam (Klonopin -) 0.5 mg PO TID [facility] Last Admin: 08/24/16 06:46 Dose: 0.5 mg Clotrimazole (Lotrimin 1% Cream -) 1 applic TP BID [facility] Last Admin: 08/24/16 10:04 Dose: 1 applic Divalproex Sodium (Depakote -) 250 mg PO BID [facility] Last Admin: 08/24/16 10:02 Dose: 250 mg Donepezil HCl (Aricept -) 10 mg PO HS [facility] Last Admin: 08/23/16 22:57 Dose: 10 mg Enoxaparin Sodium (Lovenox -) 60 mg SQ BID [facility] Escitalopram Oxalate (Lexapro -) 20 mg PO DAILY [facility] Last Admin: 08/24/16 10:02 Dose: 20 mg Furosemide (Lasix -) 40 mg PO DAILY [facility] Last Admin: 08/24/16 10:02 Dose: 40 mg Piperacillin Sod/Tazobactam Sod (Zosyn 3.375gm Ivpb (Pre-Docked)) 50 mls @ 100 mls/hr IVPB Q8H-IV [facility] PRN Reason: Protocol Last Admin: 08/24/16 10:04 Dose: 100 mls/hr Isosorbide Mononitrate (Imdur -) 30 mg PO DAILY [facility] Last Admin: 08/24/16 10:02 Dose: 30 mg Lisinopril (Prinivil) 2.5 mg PO DAILY [facility] Last Admin: 08/24/16 10:03 Dose: 2.5 mg Metoprolol Tartrate (Lopressor -) 50 mg PO BID [facility] Last Admin: 08/24/16 10:05 Dose: 50 mg Pantoprazole Sodium (Protonix -) 40 mg PO DAILY [facility] Last Admin: 08/24/16 10:03 Dose: 40 mg Polyethylene Glycol (Miralax (For Daily Use) -) 17 gm PO DAILY [facility] Last Admin: 08/24/16 10:05 Dose: 17 grams Rivaroxaban (Xarelto -) 20 mg PO DAILY [facility] Last Admin: 08/24/16 10:04 Dose: Not Given - Objective Vital Signs: Vital Signs Temperature 98.2 F 08/24/16 06:00 Pulse Rate 86 08/24/16 06:00 Respiratory Rate 20 08/24/16 06:00 Blood Pressure 132/82 08/24/16 06:00 O2 Sat by Pulse Oximetry (%) 94 L 08/23/16 21:00 Constitutional: Yes: No Distress Cardiovascular: Yes: Pulse Irregular Respiratory: Yes: Diminished Gastrointestinal: Yes: Normal Bowel Sounds, Soft, Abdomen, Obese, Distention ( suprapubic distension), Tenderness Edema: No Neurological: Yes: Alert Labs: CBC, BMP 08/23/16 05:35 08/23/16 05:35 INR, PTT INR 1.42 (0.82-1.09) H 08/20/16 16:59 Problem List - Problems (1) Atrial fibrillation Code(s): I48.91 - UNSPECIFIED ATRIAL FIBRILLATION Qualifiers: Atrial fibrillation type: persistent Qualified Code(s): I48.1 - Persistent atrial fibrillation (2) Coronary artery disease Code(s): I25.10 - ATHSCL HEART DISEASE OF [place] CORONARY ARTERY W/O ANG PCTRS Qualifiers: Coronary Disease-Associated Artery/Lesion type: [place] artery [place] vs. transplanted heart: [place] heart Associated angina: without angina Qualified Code(s): I25.10 - Atherosclerotic heart disease of [place] coronary artery without angina pectoris (3) Dementia Code(s): F03.90 - UNSPECIFIED DEMENTIA WITHOUT BEHAVIORAL DISTURBANCE Qualifiers: Dementia type: unspecified type Dementia behavioral disturbance: without behavioral disturbance Qualified Code(s): F03.90 - Unspecified dementia without behavioral disturbance (4) Cholecystitis Code(s): K81.9 - CHOLECYSTITIS, UNSPECIFIED Assessment/Plan PLAN Hold Xarelto in anticipation of surgery Start Lovenox sc BID On iv antibiotics and pain control place eckert MRCP done-- report not available HIDA scan noted-- no cystic duct obstruction LFT is elevated but now trending down-- passed stone ?
--- NOTE | 2016-08-24 11:13 | PN ---
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, Physician - Current Medication List Current Medications: Active Medications Acetaminophen (Tylenol -) 650 mg PO Q4H PRN PRN Reason: FEVER > 101 Last Admin: 08/23/16 16:30 Dose: 650 mg Anastrozole (Arimidex -) 1 mg PO DAILY [facility] Last Admin: 08/24/16 10:03 Dose: 1 mg Clonazepam (Klonopin -) 0.5 mg PO TID [facility] Last Admin: 08/24/16 06:46 Dose: 0.5 mg Clotrimazole (Lotrimin 1% Cream -) 1 applic TP BID [facility] Last Admin: 08/24/16 10:04 Dose: 1 applic Divalproex Sodium (Depakote -) 250 mg PO BID [facility] Last Admin: 08/24/16 10:02 Dose: 250 mg Donepezil HCl (Aricept -) 10 mg PO HS [facility] Last Admin: 08/23/16 22:57 Dose: 10 mg Enoxaparin Sodium (Lovenox -) 60 mg SQ BID [facility] Escitalopram Oxalate (Lexapro -) 20 mg PO DAILY [facility] Last Admin: 08/24/16 10:02 Dose: 20 mg Furosemide (Lasix -) 40 mg PO DAILY [facility] Last Admin: 08/24/16 10:02 Dose: 40 mg Piperacillin Sod/Tazobactam Sod (Zosyn 3.375gm Ivpb (Pre-Docked)) 50 mls @ 100 mls/hr IVPB Q8H-IV [facility] PRN Reason: Protocol Last Admin: 08/24/16 10:04 Dose: 100 mls/hr Isosorbide Mononitrate (Imdur -) 30 mg PO DAILY [facility] Last Admin: 08/24/16 10:02 Dose: 30 mg Lisinopril (Prinivil) 2.5 mg PO DAILY [facility] Last Admin: 08/24/16 10:03 Dose: 2.5 mg Metoprolol Tartrate (Lopressor -) 50 mg PO BID [facility] Last Admin: 08/24/16 10:05 Dose: 50 mg Pantoprazole Sodium (Protonix -) 40 mg PO DAILY [facility] Last Admin: 08/24/16 10:03 Dose: 40 mg Polyethylene Glycol (Miralax (For Daily Use) -) 17 gm PO DAILY [facility] Last Admin: 08/24/16 10:05 Dose: 17 grams Rivaroxaban (Xarelto -) 20 mg PO DAILY [facility] Last Admin: 08/24/16 10:04 Dose: Not Given - Objective Vital Signs: Vital Signs Temperature 98.2 F 08/24/16 06:00 Pulse Rate 86 08/24/16 06:00 Respiratory Rate 20 08/24/16 06:00 Blood Pressure 132/82 08/24/16 06:00 O2 Sat by Pulse Oximetry (%) 94 L 08/23/16 21:00 Labs: CBC, BMP 08/23/16 05:35 08/23/16 05:35 INR, PTT INR 1.42 (0.82-1.09) H 08/20/16 16:59 Problem List - Problems (1) Cholelithiasis Code(s): K80.20 - CALCULUS OF GALLBLADDER W/O CHOLECYSTITIS W/O OBSTRUCTION Qualifiers: Cholelithiasis location: gallbladder and bile duct Biliary obstruction : with biliary obstruction (2) Abnormal liver function Code(s): K76.89 - OTHER SPECIFIED DISEASES OF LIVER (3) Dilated bile duct Code(s): K83.8 - OTHER SPECIFIED DISEASES OF BILIARY TRACT Assessment/Plan Surgery: Patient is afebrile, Abdomen is soft , not tender, MRCOP is reviewed with Dr. Mcdaniels. Calculii seen in the common bile ductt. Persistent elevation of liver enzymes. Disscussed with Dr. Davidson, who plans to do an ERCP extraction of CBD stones tomorrow. The patient and her daughter, have been explained , of the treatment plan. Cholecystectomy is planned for , 08/26/2016. Continue antibiotics. Cholelithiasis, choledocholithiasis, s/p cholangitis, sepsis. atrial fibrillation , CHF.
--- NOTE | 2016-08-24 11:36 | PN ---
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, Physician Chief Complaint: Events noted Underlying organic brain syndrome/dementia Not in distress History of Present Illness: Patient was seen and examined. Awake and arousable. Chart was reviewed Denies chest pain or shortness of breath AF rate controlled - Current Medication List Current Medications: Active Medications Acetaminophen (Tylenol -) 650 mg PO Q4H PRN PRN Reason: FEVER > 101 Last Admin: 08/23/16 16:30 Dose: 650 mg Anastrozole (Arimidex -) 1 mg PO DAILY [facility] Last Admin: 08/24/16 10:03 Dose: 1 mg Clonazepam (Klonopin -) 0.5 mg PO TID [facility] Last Admin: 08/24/16 06:46 Dose: 0.5 mg Clotrimazole (Lotrimin 1% Cream -) 1 applic TP BID [facility] Last Admin: 08/24/16 10:04 Dose: 1 applic Divalproex Sodium (Depakote -) 250 mg PO BID [facility] Last Admin: 08/24/16 10:02 Dose: 250 mg Donepezil HCl (Aricept -) 10 mg PO HS [facility] Last Admin: 08/23/16 22:57 Dose: 10 mg Enoxaparin Sodium (Lovenox -) 60 mg SQ BID [facility] Escitalopram Oxalate (Lexapro -) 20 mg PO DAILY [facility] Last Admin: 08/24/16 10:02 Dose: 20 mg Furosemide (Lasix -) 40 mg PO DAILY [facility] Last Admin: 08/24/16 10:02 Dose: 40 mg Piperacillin Sod/Tazobactam Sod (Zosyn 3.375gm Ivpb (Pre-Docked)) 50 mls @ 100 mls/hr IVPB Q8H-IV [facility] PRN Reason: Protocol Last Admin: 08/24/16 10:04 Dose: 100 mls/hr Isosorbide Mononitrate (Imdur -) 30 mg PO DAILY [facility] Last Admin: 08/24/16 10:02 Dose: 30 mg Lisinopril (Prinivil) 2.5 mg PO DAILY [facility] Last Admin: 08/24/16 10:03 Dose: 2.5 mg Metoprolol Tartrate (Lopressor -) 50 mg PO BID [facility] Last Admin: 08/24/16 10:05 Dose: 50 mg Pantoprazole Sodium (Protonix -) 40 mg PO DAILY [facility] Last Admin: 08/24/16 10:03 Dose: 40 mg Polyethylene Glycol (Miralax (For Daily Use) -) 17 gm PO DAILY [facility] Last Admin: 08/24/16 10:05 Dose: 17 grams Rivaroxaban (Xarelto -) 20 mg PO DAILY [facility] Last Admin: 08/24/16 10:04 Dose: Not Given - Objective Vital Signs: Vital Signs Temperature 98.2 F 08/24/16 06:00 Pulse Rate 86 08/24/16 06:00 Respiratory Rate 20 08/24/16 06:00 Blood Pressure 132/82 08/24/16 06:00 O2 Sat by Pulse Oximetry (%) 94 L 08/23/16 21:00 Neck: Yes: Supple Cardiovascular: Yes: Pulse Irregular, S1, S2 Respiratory: Yes: Diminished Gastrointestinal: Yes: Normal Bowel Sounds, Soft. No: Tenderness Edema: No Labs: CBC, BMP 08/23/16 05:35 08/23/16 05:35 Problem List - Problems (1) Abnormal liver enzymes Code(s): R74.8 - ABNORMAL LEVELS OF OTHER SERUM ENZYMES (2) Acute cholangitis Code(s): K83.0 - CHOLANGITIS (3) Atrial fibrillation Code(s): I48.91 - UNSPECIFIED ATRIAL FIBRILLATION Qualifiers: Atrial fibrillation type: persistent Qualified Code(s): I48.1 - Persistent atrial fibrillation (4) Cholecystitis Code(s): K81.9 - CHOLECYSTITIS, UNSPECIFIED (5) Cholelithiasis Code(s): K80.20 - CALCULUS OF GALLBLADDER W/O CHOLECYSTITIS W/O OBSTRUCTION Qualifiers: Cholelithiasis location: gallbladder and bile duct Cholecystitis presence: with cholecystitis Biliary obstruction: with biliary obstruction (6) Coronary artery disease Code(s): I25.10 - ATHSCL HEART DISEASE OF [place] CORONARY ARTERY W/O ANG PCTRS Qualifiers: Coronary Disease-Associated Artery/Lesion type: [place] artery [place] vs. transplanted heart: [place] heart Associated angina: without angina Qualified Code(s): I25.10 - Atherosclerotic heart disease of [place] coronary artery without angina pectoris (7) Demand ischemia Code(s): I24.8 - OTHER FORMS OF ACUTE ISCHEMIC HEART DISEASE (8) Dementia Code(s): F03.90 - UNSPECIFIED DEMENTIA WITHOUT BEHAVIORAL DISTURBANCE Qualifiers: Dementia type: unspecified type Dementia behavioral disturbance: without behavioral disturbance Qualified Code(s): F03.90 - Unspecified dementia without behavioral disturbance (9) Diastolic dysfunction Code(s): I51.9 - HEART DISEASE, UNSPECIFIED (10) Hyperlipidemia Code(s): E78.5 - HYPERLIPIDEMIA, UNSPECIFIED Qualifiers: Hyperlipidemia type: pure hypercholesterolemia Qualified Code(s): E78.0 - Pure hypercholesterolemia (11) Sepsis Code(s): A41.9 - SEPSIS, UNSPECIFIED ORGANISM Qualifiers: Sepsis type: sepsis due to unspecified organism Qualified Code(s): A41.9 - Sepsis, unspecified organism Assessment/Plan 1. Toxic metabolic encephalopathy referable to sepsis 2. Leukocytosis and elevated LFT c/w acute cholecystitis/cholangitis 3. Persistent atrial fibrillation 4. CAD - demand ischemia referable to #1 5. Diastolic dysfunction with elevated biomarkers 6. Hyperlipidemia 7. History of breast CA PLAN: 1. Empiric antibiotic coverage 2. Transthoracic echocardiography reveals normal left ventricular systolic function, mild MR and AR 3. Continue Digoxin 0.125 mg QD, Imdur 30 mg QD, Lopressor 50 mg BID, Lisinopril 2.5 mg QD and Lasix 40 mg QD - Lipitor is being held pending LFT normalization 4. GI prophylaxis 5. Further GI work up and management (endoscopic and surgical) this week. There appears to be no absolute contraindication in proceeding with planned surgical intervention in view of absence of ischemic symptoms at this time, decompensated congestive heart failure or malignant arrhythmia. Further plans are to follow Jerome Alfaro MD
--- NOTE | 2016-08-24 11:43 | PN ---
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, Physician History of Present Illness: Confused No complaints No acute distress Low grade fever Leukocytosis resolved LFTS improved - Current Medication List Current Medications: Active Medications Acetaminophen (Tylenol -) 650 mg PO Q4H PRN PRN Reason: FEVER > 101 Last Admin: 08/23/16 16:30 Dose: 650 mg Anastrozole (Arimidex -) 1 mg PO DAILY [facility] Last Admin: 08/24/16 10:03 Dose: 1 mg Clonazepam (Klonopin -) 0.5 mg PO TID [facility] Last Admin: 08/24/16 06:46 Dose: 0.5 mg Clotrimazole (Lotrimin 1% Cream -) 1 applic TP BID [facility] Last Admin: 08/24/16 10:04 Dose: 1 applic Divalproex Sodium (Depakote -) 250 mg PO BID [facility] Last Admin: 08/24/16 10:02 Dose: 250 mg Donepezil HCl (Aricept -) 10 mg PO HS [facility] Last Admin: 08/23/16 22:57 Dose: 10 mg Enoxaparin Sodium (Lovenox -) 60 mg SQ BID [facility] Escitalopram Oxalate (Lexapro -) 20 mg PO DAILY [facility] Last Admin: 08/24/16 10:02 Dose: 20 mg Furosemide (Lasix -) 40 mg PO DAILY [facility] Last Admin: 08/24/16 10:02 Dose: 40 mg Piperacillin Sod/Tazobactam Sod (Zosyn 3.375gm Ivpb (Pre-Docked)) 50 mls @ 100 mls/hr IVPB Q8H-IV [facility] PRN Reason: Protocol Last Admin: 08/24/16 10:04 Dose: 100 mls/hr Isosorbide Mononitrate (Imdur -) 30 mg PO DAILY [facility] Last Admin: 08/24/16 10:02 Dose: 30 mg Lisinopril (Prinivil) 2.5 mg PO DAILY [facility] Last Admin: 08/24/16 10:03 Dose: 2.5 mg Metoprolol Tartrate (Lopressor -) 50 mg PO BID [facility] Last Admin: 08/24/16 10:05 Dose: 50 mg Pantoprazole Sodium (Protonix -) 40 mg PO DAILY [facility] Last Admin: 08/24/16 10:03 Dose: 40 mg Polyethylene Glycol (Miralax (For Daily Use) -) 17 gm PO DAILY [facility] Last Admin: 08/24/16 10:05 Dose: 17 grams Rivaroxaban (Xarelto -) 20 mg PO DAILY [facility] Last Admin: 08/24/16 10:04 Dose: Not Given - Objective Vital Signs: Vital Signs Temperature 98.2 F 08/24/16 06:00 Pulse Rate 86 08/24/16 06:00 Respiratory Rate 20 08/24/16 06:00 Blood Pressure 132/82 08/24/16 06:00 O2 Sat by Pulse Oximetry (%) 94 L 08/23/16 21:00 Constitutional: Yes: Well Nourished, No Distress Eyes: Yes: Conjunctiva Clear. No: Sclera Icterus Cardiovascular: Yes: Regular Rate and Rhythm, S1, S2 Respiratory: Yes: CTA Bilaterally Gastrointestinal: Yes: Normal Bowel Sounds, Soft. No: Tenderness Edema: Yes Edema: LLE: 1+, RLE: 1+ Labs: CBC, BMP 08/23/16 05:35 08/23/16 05:35 INR, PTT INR 1.42 (0.82-1.09) H 08/20/16 16:59 Assessment/Plan Fever/ leukocytosis / elevated LFTs/ hx vomiting- possible acute cholecystitis + Urine c/s c/w contamination Possible sepsis secondary to biliary v. urinary tract Continue empiric zosyn
[2016-08-24] MEDS: ENOXAPARIN NA (PORCINE) 60 MG/0.6 ML DISP.SYRIN SQ SCH ×2 (12:00→21:51)
[2016-08-24] MEDS ORDERED: PT OWN MED DRAWER 7, Y5N ONE (21:45)
[2016-08-24] MEDS: DONEPEZIL HCL 10 MG TABLET (FP) PO SCH (21:49)
[2016-08-24] MEDS: ACETAMINOPHEN 325 MG TABLET (FP) PO PRN (21:51)
[2016-08-25] MEDS: PIPERACILLIN/TAZOB 3.375 GM 50 ML IVPB SCH ×3 (02:30→18:22)
[2016-08-25] MEDS: clonazePAM 0.5 MG TABLET PO SCH ×3 (06:26→21:41)
[2016-08-25 07:03] LABS: BASOPHIL 0.7 % (0-2.0); EOSINOPHIL 8.9 % (0-4.5); MCH 31.9 pg (25.7-33.7); MCHC 33.9 g/dl (32.0-36.0); MEAN CELL VOLUME 94.1 fl (80-96); MEAN PLT VOLUME 8.4 fl (7.5-11.1); NEUTROPHILS 52.7 % (42.8-82.8); PLATELET COUNT 281 K/MM3 (134-434); RDW 13.8 % (11.6-15.6); WHITE BLOOD COUNT 7.6 K/mm3 (4.0-10.0)
[2016-08-25 07:26] LABS: ALBUMIN 2.4 g/dl (3.4-5.0); ANION GAP 8 (8-16); CALCIUM 8.7 mg/dL (8.5-10.1); CO2 33 mmol/L (21-32); GLUCOSE,RANDOM 82 mg/dL (74-106)
[2016-08-25 07:29] LABS: ALK PHOS 199 U/L (45-117); BILIRUBIN,TOTAL 0.6 mg/dL (0.2-1.0); CREATININE 0.6 mg/dL (0.55-1.02); SGOT/AST 35 U/L (15-37); SGPT/ALT 85 U/L (12-78); TOT PROT 5.6 g/dl (6.4-8.2)
[2016-08-25] MEDS: METOPROLOL TARTRATE 50 MG TABLET (FP) PO SCH ×2 (09:03→21:41)
[2016-08-25] MEDS: FUROSEMIDE 40 MG TABLET (FP) PO SCH (09:03)
[2016-08-25] MEDS: PANTOPRAZOLE 40 MG TABLET (FP) PO SCH (09:03)
[2016-08-25] MEDS: LISINOPRIL 5 MG TABLET (FP) PO SCH (09:03)
[2016-08-25] MEDS: ISOSORBIDE MONONITRATE 30 MG TAB.SR.24H (FP) PO SCH (09:03)
[2016-08-25] MEDS: ESCITALOPRAM OXALATE 20 MG TABLET (FP) PO SCH (09:03)
[2016-08-25] MEDS: ENOXAPARIN NA (PORCINE) 60 MG/0.6 ML DISP.SYRIN SQ SCH ×2 (09:04→21:42)
[2016-08-25] MEDS: POLYETHYLENE GLYCOL 3350 119 GM BTL PO SCH (09:05)
[2016-08-25] MEDS ORDERED: PT OWN MED DRAWER 7, Y5N ONE (09:06)
[2016-08-25] MEDS: ANASTROZOLE 1 MG TABLET PO SCH (09:06)
[2016-08-25] MEDS: CLOTRIMAZOLE 1% CREAM 15 GM TUBE TP SCH ×2 (09:12→21:41)
[2016-08-25] MEDS: DIVALPROEX SODIUM 250 MG TABLET E.C. (FP) PO SCH ×2 (09:12→22:05)
--- NOTE | 2016-08-25 10:25 | PN ---
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, Physician Chief Complaint: Events noted Different Daughter at bedside-- pt has 4 daughters and 2 sons Pt is sleepy but awakens when abdomen is palpated Eckert replaced no distress - Current Medication List Current Medications: Active Medications Acetaminophen (Tylenol -) 650 mg PO Q4H PRN PRN Reason: FEVER > 101 Last Admin: 08/24/16 21:51 Dose: 650 mg Anastrozole (Arimidex -) 1 mg PO DAILY [facility] Last Admin: 08/25/16 09:06 Dose: 1 mg Clonazepam (Klonopin -) 0.5 mg PO TID [facility] Last Admin: 08/25/16 06:26 Dose: 0.5 mg Clotrimazole (Lotrimin 1% Cream -) 1 applic TP BID [facility] Last Admin: 08/25/16 09:12 Dose: 1 applic Divalproex Sodium (Depakote -) 250 mg PO BID [facility] Last Admin: 08/25/16 09:12 Dose: 250 mg Donepezil HCl (Aricept -) 10 mg PO HS [facility] Last Admin: 08/24/16 21:49 Dose: 10 mg Enoxaparin Sodium (Lovenox -) 60 mg SQ BID [facility] Stop: 08/26/16 20:00 Last Admin: 08/25/16 09:04 Dose: 60 mg Escitalopram Oxalate (Lexapro -) 20 mg PO DAILY [facility] Last Admin: 08/25/16 09:03 Dose: 20 mg Furosemide (Lasix -) 40 mg PO DAILY [facility] Last Admin: 08/25/16 09:03 Dose: 40 mg Piperacillin Sod/Tazobactam Sod (Zosyn 3.375gm Ivpb (Pre-Docked)) 50 mls @ 100 mls/hr IVPB Q8H-IV [facility] PRN Reason: Protocol Last Admin: 08/25/16 09:18 Dose: 100 mls/hr Isosorbide Mononitrate (Imdur -) 30 mg PO DAILY [facility] Last Admin: 08/25/16 09:03 Dose: 30 mg Lisinopril (Prinivil) 2.5 mg PO DAILY [facility] Last Admin: 08/25/16 09:03 Dose: 2.5 mg Metoprolol Tartrate (Lopressor -) 50 mg PO BID [facility] Last Admin: 08/25/16 09:03 Dose: 50 mg Pantoprazole Sodium (Protonix -) 40 mg PO DAILY [facility] Last Admin: 08/25/16 09:03 Dose: 40 mg Polyethylene Glycol (Miralax (For Daily Use) -) 17 gm PO DAILY [facility] Last Admin: 08/25/16 09:05 Dose: 17 grams Rivaroxaban (Xarelto -) 20 mg PO DAILY [facility] Last Admin: 08/24/16 10:04 Dose: Not Given - Objective Vital Signs: Vital Signs Temperature 97.7 F 08/25/16 08:07 Pulse Rate 89 08/25/16 08:07 Respiratory Rate 18 08/25/16 08:07 Blood Pressure 117/73 08/25/16 08:07 O2 Sat by Pulse Oximetry (%) 98 08/25/16 08:07 Constitutional: Yes: No Distress Cardiovascular: Yes: Pulse Irregular Respiratory: Yes: Diminished Gastrointestinal: Yes: Normal Bowel Sounds, Soft, Abdomen, Obese. No: Distention, Tenderness Edema: No Labs: CBC, BMP 08/25/16 05:35 08/25/16 05:35 INR, PTT INR 1.42 (0.82-1.09) H 08/20/16 16:59 Problem List - Problems (1) Atrial fibrillation Code(s): I48.91 - UNSPECIFIED ATRIAL FIBRILLATION Qualifiers: Atrial fibrillation type: persistent Qualified Code(s): I48.1 - Persistent atrial fibrillation (2) Coronary artery disease Code(s): I25.10 - ATHSCL HEART DISEASE OF [place] CORONARY ARTERY W/O ANG PCTRS Qualifiers: Coronary Disease-Associated Artery/Lesion type: [place] artery [place] vs. transplanted heart: [place] heart Associated angina: without angina Qualified Code(s): I25.10 - Atherosclerotic heart disease of [place] coronary artery without angina pectoris (3) Dementia Code(s): F03.90 - UNSPECIFIED DEMENTIA WITHOUT BEHAVIORAL DISTURBANCE Qualifiers: Dementia type: unspecified type Dementia behavioral disturbance: without behavioral disturbance Qualified Code(s): F03.90 - Unspecified dementia without behavioral disturbance (4) Cholecystitis Code(s): K81.9 - CHOLECYSTITIS, UNSPECIFIED Assessment/Plan PLAN Hold Xarelto in anticipation of surgery on Lovenox sc BID On iv antibiotics and pain control replace eckert-- start Flomax MRCP -- CBD stones, cholangitis HIDA scan noted-- no cystic duct dilation LFT is elevated but now trending down ERCP planned for Tuesday and Cholecystectomy on Tuesday spoke to this daughter in detail today, answered her questions to the best of my ability
--- NOTE | 2016-08-25 10:41 | PN ---
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, Physician History of Present Illness: Awake,responsive No acute distress No c/o abdominal pain, N/V Afebrile WBC WNL - Current Medication List Current Medications: Active Medications Acetaminophen (Tylenol -) 650 mg PO Q4H PRN PRN Reason: FEVER > 101 Last Admin: 08/24/16 21:51 Dose: 650 mg Anastrozole (Arimidex -) 1 mg PO DAILY [facility] Last Admin: 08/25/16 09:06 Dose: 1 mg Clonazepam (Klonopin -) 0.5 mg PO TID [facility] Last Admin: 08/25/16 06:26 Dose: 0.5 mg Clotrimazole (Lotrimin 1% Cream -) 1 applic TP BID [facility] Last Admin: 08/25/16 09:12 Dose: 1 applic Divalproex Sodium (Depakote -) 250 mg PO BID [facility] Last Admin: 08/25/16 09:12 Dose: 250 mg Donepezil HCl (Aricept -) 10 mg PO HS [facility] Last Admin: 08/24/16 21:49 Dose: 10 mg Enoxaparin Sodium (Lovenox -) 60 mg SQ BID [facility] Stop: 08/26/16 20:00 Last Admin: 08/25/16 09:04 Dose: 60 mg Escitalopram Oxalate (Lexapro -) 20 mg PO DAILY [facility] Last Admin: 08/25/16 09:03 Dose: 20 mg Furosemide (Lasix -) 40 mg PO DAILY [facility] Last Admin: 08/25/16 09:03 Dose: 40 mg Piperacillin Sod/Tazobactam Sod (Zosyn 3.375gm Ivpb (Pre-Docked)) 50 mls @ 100 mls/hr IVPB Q8H-IV [facility] PRN Reason: Protocol Last Admin: 08/25/16 09:18 Dose: 100 mls/hr Isosorbide Mononitrate (Imdur -) 30 mg PO DAILY [facility] Last Admin: 08/25/16 09:03 Dose: 30 mg Lisinopril (Prinivil) 2.5 mg PO DAILY [facility] Last Admin: 08/25/16 09:03 Dose: 2.5 mg Metoprolol Tartrate (Lopressor -) 50 mg PO BID [facility] Last Admin: 08/25/16 09:03 Dose: 50 mg Pantoprazole Sodium (Protonix -) 40 mg PO DAILY [facility] Last Admin: 08/25/16 09:03 Dose: 40 mg Polyethylene Glycol (Miralax (For Daily Use) -) 17 gm PO DAILY [facility] Last Admin: 08/25/16 09:05 Dose: 17 grams - Objective Vital Signs: Vital Signs Temperature 97.7 F 08/25/16 08:07 Pulse Rate 89 08/25/16 08:07 Respiratory Rate 18 08/25/16 08:07 Blood Pressure 117/73 08/25/16 08:07 O2 Sat by Pulse Oximetry (%) 98 08/25/16 08:07 Constitutional: Yes: No Distress Eyes: Yes: Conjunctiva Clear Cardiovascular: Yes: Regular Rate and Rhythm, S1, S2 Respiratory: Yes: CTA Bilaterally Gastrointestinal: Yes: Normal Bowel Sounds, Soft. No: Tenderness Edema: No Labs: CBC, BMP 08/25/16 05:35 08/25/16 05:35 INR, PTT INR 1.42 (0.82-1.09) H 08/20/16 16:59 Assessment/Plan Fever/ leukocytosis / elevated LFTs/ hx vomiting- acute cholecystitis + Urine c/s c/w contamination Possible sepsis secondary to biliary tract Continue empiric zosyn For ERCP, cholecystectomy
--- NOTE | 2016-08-25 11:43 | PN ---
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, Physician History of Present Illness: Afebrile, tachy-sharon on monitor with longest 2.4 sec pause. - Current Medication List Current Medications: Active Medications Acetaminophen (Tylenol -) 650 mg PO Q4H PRN PRN Reason: FEVER > 101 Last Admin: 08/24/16 21:51 Dose: 650 mg Anastrozole (Arimidex -) 1 mg PO DAILY [facility] Last Admin: 08/25/16 09:06 Dose: 1 mg Clonazepam (Klonopin -) 0.5 mg PO TID [facility] Last Admin: 08/25/16 06:26 Dose: 0.5 mg Clotrimazole (Lotrimin 1% Cream -) 1 applic TP BID [facility] Last Admin: 08/25/16 09:12 Dose: 1 applic Divalproex Sodium (Depakote -) 250 mg PO BID [facility] Last Admin: 08/25/16 09:12 Dose: 250 mg Donepezil HCl (Aricept -) 10 mg PO HS [facility] Last Admin: 08/24/16 21:49 Dose: 10 mg Enoxaparin Sodium (Lovenox -) 60 mg SQ BID [facility] Stop: 08/26/16 20:00 Last Admin: 08/25/16 09:04 Dose: 60 mg Escitalopram Oxalate (Lexapro -) 20 mg PO DAILY [facility] Last Admin: 08/25/16 09:03 Dose: 20 mg Furosemide (Lasix -) 40 mg PO DAILY [facility] Last Admin: 08/25/16 09:03 Dose: 40 mg Piperacillin Sod/Tazobactam Sod (Zosyn 3.375gm Ivpb (Pre-Docked)) 50 mls @ 100 mls/hr IVPB Q8H-IV [facility] PRN Reason: Protocol Last Admin: 08/25/16 09:18 Dose: 100 mls/hr Isosorbide Mononitrate (Imdur -) 30 mg PO DAILY [facility] Last Admin: 08/25/16 09:03 Dose: 30 mg Lisinopril (Prinivil) 2.5 mg PO DAILY [facility] Last Admin: 08/25/16 09:03 Dose: 2.5 mg Metoprolol Tartrate (Lopressor -) 50 mg PO BID [facility] Last Admin: 08/25/16 09:03 Dose: 50 mg Pantoprazole Sodium (Protonix -) 40 mg PO DAILY [facility] Last Admin: 08/25/16 09:03 Dose: 40 mg Polyethylene Glycol (Miralax (For Daily Use) -) 17 gm PO DAILY [facility] Last Admin: 08/25/16 09:05 Dose: 17 grams - Objective Vital Signs: Vital Signs Temperature 97.7 F 08/25/16 08:07 Pulse Rate 89 08/25/16 08:07 Respiratory Rate 18 08/25/16 08:07 Blood Pressure 117/73 08/25/16 08:07 O2 Sat by Pulse Oximetry (%) 98 08/25/16 08:07 Constitutional: Yes: No Distress, Calm Neck: Yes: Supple Cardiovascular: Yes: Pulse Irregular Respiratory: Yes: Regular, Diminished, On Nasal O2 Gastrointestinal: Yes: Soft, Hypoactive Bowel Sounds Edema: No Labs: CBC, BMP 08/25/16 05:35 08/25/16 05:35 INR, PTT INR 1.42 (0.82-1.09) H 08/20/16 16:59 Problem List - Problems (1) Sepsis Code(s): A41.9 - SEPSIS, UNSPECIFIED ORGANISM Qualifiers: Sepsis type: sepsis due to unspecified organism Qualified Code(s): A41.9 - Sepsis, unspecified organism (2) Atrial fibrillation Code(s): I48.91 - UNSPECIFIED ATRIAL FIBRILLATION Qualifiers: Atrial fibrillation type: persistent Qualified Code(s): I48.1 - Persistent atrial fibrillation (3) Diastolic dysfunction Code(s): I51.9 - HEART DISEASE, UNSPECIFIED (4) Hyperlipidemia Code(s): E78.5 - HYPERLIPIDEMIA, UNSPECIFIED Qualifiers: Hyperlipidemia type: pure hypercholesterolemia Qualified Code(s): E78.0 - Pure hypercholesterolemia (5) Dementia Code(s): F03.90 - UNSPECIFIED DEMENTIA WITHOUT BEHAVIORAL DISTURBANCE Qualifiers: Dementia type: unspecified type Dementia behavioral disturbance: without behavioral disturbance Qualified Code(s): F03.90 - Unspecified dementia without behavioral disturbance (6) Demand ischemia Code(s): I24.8 - OTHER FORMS OF ACUTE ISCHEMIC HEART DISEASE (7) Coronary artery disease Code(s): I25.10 - ATHSCL HEART DISEASE OF [place] CORONARY ARTERY W/O ANG PCTRS Qualifiers: Coronary Disease-Associated Artery/Lesion type: [place] artery [place] vs. transplanted heart: [place] heart Associated angina: without angina Qualified Code(s): I25.10 - Atherosclerotic heart disease of [place] coronary artery without angina pectoris (8) Anticoagulation adequate with anticoagulant therapy Code(s): Z79.01 - CARE HOME (CURRENT) USE OF ANTICOAGULANTS (9) Abnormal liver enzymes Code(s): R74.8 - ABNORMAL LEVELS OF OTHER SERUM ENZYMES Assessment/Plan Echo 08/23/2016 Echo: Normal LV size and fxn, mild AR, MR 1. Toxic metabolic encephelopathy referable to sepsis with underlying dementia 2. Leukocytosis, demand ischemia, elevated LFT c/w acute cholecystitis/ cholangitis with choledocholithiasis on MRCP 3. Persistent afib with tachy-sharon episodes off NOAC on Lovenox silke-procedure 4. CAD demand ischemia referable to #1 5. Diastolic dysfxn with elevated biomarkers 6. Hyperlipidemia 7. H/o breast ca P:1. Empiric zosyn course pending c/s, ERCP then lap [place] 2. Continue Dig 0.125 qd, Imdur 30 qd, Lopressor 50 bid, Xarelto 20 qd and lisinopril 2.5 qd, Lasix 40 qd in AM, Lipitor held pending LFT normalization 3. DVT and GI prophylaxis 4. D/w daughter, may require single chamber pacer if AV deandre agents are to be uptitrated for rate-control, will monitor for now 5. Further GI work up and management (endoscopic and surgical) this week. There appears to be no absolute contraindication in proceeding with planned surgical intervention in view of absence of ischemic symptoms at this time, decompensated congestive heart failure or malignant arrhythmia. I
--- NOTE | 2016-08-25 12:26 | PN ---
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, Physician - Current Medication List Current Medications: Active Medications Acetaminophen (Tylenol -) 650 mg PO Q4H PRN PRN Reason: FEVER > 101 Last Admin: 08/24/16 21:51 Dose: 650 mg Anastrozole (Arimidex -) 1 mg PO DAILY [facility] Last Admin: 08/25/16 09:06 Dose: 1 mg Clonazepam (Klonopin -) 0.5 mg PO TID [facility] Last Admin: 08/25/16 06:26 Dose: 0.5 mg Clotrimazole (Lotrimin 1% Cream -) 1 applic TP BID [facility] Last Admin: 08/25/16 09:12 Dose: 1 applic Divalproex Sodium (Depakote -) 250 mg PO BID [facility] Last Admin: 08/25/16 09:12 Dose: 250 mg Donepezil HCl (Aricept -) 10 mg PO HS [facility] Last Admin: 08/24/16 21:49 Dose: 10 mg Enoxaparin Sodium (Lovenox -) 60 mg SQ BID [facility] Stop: 08/26/16 20:00 Last Admin: 08/25/16 09:04 Dose: 60 mg Escitalopram Oxalate (Lexapro -) 20 mg PO DAILY [facility] Last Admin: 08/25/16 09:03 Dose: 20 mg Furosemide (Lasix -) 40 mg PO DAILY [facility] Last Admin: 08/25/16 09:03 Dose: 40 mg Piperacillin Sod/Tazobactam Sod (Zosyn 3.375gm Ivpb (Pre-Docked)) 50 mls @ 100 mls/hr IVPB Q8H-IV [facility] PRN Reason: Protocol Last Admin: 08/25/16 09:18 Dose: 100 mls/hr Isosorbide Mononitrate (Imdur -) 30 mg PO DAILY [facility] Last Admin: 08/25/16 09:03 Dose: 30 mg Lisinopril (Prinivil) 2.5 mg PO DAILY [facility] Last Admin: 08/25/16 09:03 Dose: 2.5 mg Metoprolol Tartrate (Lopressor -) 50 mg PO BID [facility] Last Admin: 08/25/16 09:03 Dose: 50 mg Pantoprazole Sodium (Protonix -) 40 mg PO DAILY [facility] Last Admin: 08/25/16 09:03 Dose: 40 mg Polyethylene Glycol (Miralax (For Daily Use) -) 17 gm PO DAILY [facility] Last Admin: 08/25/16 09:05 Dose: 17 grams - Objective Vital Signs: Vital Signs Temperature 97.7 F 08/25/16 08:07 Pulse Rate 89 08/25/16 08:07 Respiratory Rate 18 08/25/16 08:07 Blood Pressure 117/73 08/25/16 08:07 O2 Sat by Pulse Oximetry (%) 98 08/25/16 08:07 Labs: CBC, BMP 08/25/16 05:35 08/25/16 05:35 INR, PTT INR 1.42 (0.82-1.09) H 08/20/16 16:59 Problem List - Problems (1) Cholelithiasis Code(s): K80.20 - CALCULUS OF GALLBLADDER W/O CHOLECYSTITIS W/O OBSTRUCTION Qualifiers: Cholelithiasis location: gallbladder and bile duct Biliary obstruction : with biliary obstruction (2) Abnormal liver function Code(s): K76.89 - OTHER SPECIFIED DISEASES OF LIVER (3) Dilated bile duct Code(s): K83.8 - OTHER SPECIFIED DISEASES OF BILIARY TRACT Assessment/Plan Surgery: Patient to have ERCP , on Tuesday08/27/2016, for CBD stones. She is being taken of [facility] for the procedure. She will have cholecystectomy , on Tuesday08/30/2016. Family is aware. Liver enzymes are still elevated.
--- NOTE | 2016-08-25 19:55 | PN ---
GI 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 Subjective: Patient seen, chart reviewed. Patient is currently comfortable She denies pain. Relative in the room - Objective Vital Signs: Vital Signs Temperature 98.2 F 08/25/16 18:00 Pulse Rate 76 08/25/16 18:00 Respiratory Rate 19 08/25/16 18:00 Blood Pressure 96/64 08/25/16 18:00 O2 Sat by Pulse Oximetry (%) 98 08/25/16 08:07 Constitutional: Well Nourished, No Distress HENT: Yes: Normocephalic Neck: Yes: Supple Cardiovascular: Yes: Regular Rate and Rhythm Respiratory: Yes: Regular Gastrointestinal Inspection: Yes: WNL ...Auscultate: Yes: Normoactive Bowel Sounds ...Palpate: Yes: Soft. No: Tenderness Labs: CBC, BMP 08/25/16 05:35 08/25/16 05:35 INR, PTT INR 1.42 (0.82-1.09) H 08/20/16 16:59 Assessment/Plan 75 F with above history. HIDA negative with good biliary to bowel transit and filling of gb, but MRCP shows filling defects in the distal CBD Waiting for cardiac clearance which was obtained today. However, LFTs normalized and no leukocytosis. Dr Davidson made aware. Poss ERCP tomorrow, pending clinical status and labs. May want another imaging study to ensure stones not passed.
[2016-08-25] MEDS: DONEPEZIL HCL 10 MG TABLET (FP) PO SCH (21:41)
[2016-08-26] MEDS: PIPERACILLIN/TAZOB 3.375 GM 50 ML IVPB SCH ×3 (02:09→17:30)
[2016-08-26] MEDS: clonazePAM 0.5 MG TABLET PO SCH ×3 (06:34→21:17)
[2016-08-26 07:16] LABS: BASOPHIL 0.9 % (0-2.0); EOSINOPHIL 9.1 % (0-4.5); MCH 31.7 pg (25.7-33.7); MCHC 33.7 g/dl (32.0-36.0); MEAN PLT VOLUME 8.2 fl (7.5-11.1); NEUTROPHILS 59.3 % (42.8-82.8); PLATELET COUNT 349 K/MM3 (134-434); RDW 13.7 % (11.6-15.6)
[2016-08-26 07:54] LABS: ALBUMIN 2.4 g/dl (3.4-5.0); ANION GAP 8 (8-16); CALCIUM 8.9 mg/dL (8.5-10.1); CO2 33 mmol/L (21-32)
[2016-08-26 08:03] LABS: ALK PHOS 184 U/L (45-117); BILIRUBIN,TOTAL 0.7 mg/dL (0.2-1.0); CREATININE 0.7 mg/dL (0.55-1.02); GLUCOSE,RANDOM 82 mg/dL (74-106); SGOT/AST 31 U/L (15-37); SGPT/ALT 70 U/L (12-78); TOT PROT 5.8 g/dl (6.4-8.2)
[2016-08-26] MEDS: METOPROLOL TARTRATE 50 MG TABLET (FP) PO SCH (09:32)
[2016-08-26] MEDS: FUROSEMIDE 20 MG TABLET (FP) PO SCH (09:32)
[2016-08-26] MEDS: LISINOPRIL 5 MG TABLET (FP) PO SCH (09:32)
[2016-08-26] MEDS: ESCITALOPRAM OXALATE 20 MG TABLET (FP) PO SCH (09:33)
[2016-08-26] MEDS: ISOSORBIDE MONONITRATE 30 MG TAB.SR.24H (FP) PO SCH (09:33)
[2016-08-26] MEDS: PANTOPRAZOLE 40 MG TABLET (FP) PO SCH (09:33)
[2016-08-26] MEDS: ENOXAPARIN NA (PORCINE) 60 MG/0.6 ML DISP.SYRIN SQ SCH (09:33)
[2016-08-26] MEDS: DIVALPROEX SODIUM 250 MG TABLET E.C. (FP) PO SCH ×2 (09:34→21:17)
[2016-08-26] MEDS: ANASTROZOLE 1 MG TABLET PO SCH (09:34)
[2016-08-26] MEDS: POLYETHYLENE GLYCOL 3350 119 GM BTL PO SCH (09:34)
[2016-08-26] MEDS: CLOTRIMAZOLE 1% CREAM 15 GM TUBE TP SCH ×2 (09:34→21:18)
[2016-08-26] MEDS ORDERED: PT OWN MED DRAWER 7, Y5N ONE ×2 (09:37→21:10)
--- NOTE | 2016-08-26 10:41 | PN ---
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, Physician History of Present Illness: Afebrile, rate-controlled afib. More alert today. - Current Medication List Current Medications: Active Medications Acetaminophen (Tylenol -) 650 mg PO Q4H PRN PRN Reason: FEVER > 101 Last Admin: 08/24/16 21:51 Dose: 650 mg Anastrozole (Arimidex -) 1 mg PO DAILY [facility] Last Admin: 08/26/16 09:34 Dose: 1 mg Clonazepam (Klonopin -) 0.5 mg PO TID [facility] Last Admin: 08/26/16 06:34 Dose: 0.5 mg Clotrimazole (Lotrimin 1% Cream -) 1 applic TP BID [facility] Last Admin: 08/26/16 09:34 Dose: 1 applic Divalproex Sodium (Depakote -) 250 mg PO BID [facility] Last Admin: 08/26/16 09:34 Dose: 250 mg Donepezil HCl (Aricept -) 10 mg PO HS [facility] Last Admin: 08/25/16 21:41 Dose: 10 mg Enoxaparin Sodium (Lovenox -) 60 mg SQ BID [facility] Stop: 08/26/16 20:00 Last Admin: 08/26/16 09:33 Dose: 60 mg Escitalopram Oxalate (Lexapro -) 20 mg PO DAILY [facility] Last Admin: 08/26/16 09:33 Dose: 20 mg Furosemide (Lasix -) 20 mg PO DAILY [facility] Last Admin: 08/26/16 09:32 Dose: 20 mg Piperacillin Sod/Tazobactam Sod (Zosyn 3.375gm Ivpb (Pre-Docked)) 50 mls @ 100 mls/hr IVPB Q8H-IV [facility] PRN Reason: Protocol Last Admin: 08/26/16 09:39 Dose: 100 mls/hr Isosorbide Mononitrate (Imdur -) 30 mg PO DAILY [facility] Last Admin: 08/26/16 09:33 Dose: 30 mg Lisinopril (Prinivil) 2.5 mg PO DAILY [facility] Last Admin: 08/26/16 09:32 Dose: 2.5 mg Metoprolol Tartrate (Lopressor -) 50 mg PO BID [facility] Last Admin: 08/26/16 09:32 Dose: 50 mg Pantoprazole Sodium (Protonix -) 40 mg PO DAILY [facility] Last Admin: 08/26/16 09:33 Dose: 40 mg Polyethylene Glycol (Miralax (For Daily Use) -) 17 gm PO DAILY [facility] Last Admin: 08/26/16 09:34 Dose: 17 grams - Objective Vital Signs: Vital Signs Temperature 98 F 08/26/16 08:08 Pulse Rate 85 08/26/16 08:08 Respiratory Rate 20 08/26/16 08:08 Blood Pressure 125/66 08/26/16 08:08 O2 Sat by Pulse Oximetry (%) 96 08/25/16 21:00 Constitutional: Yes: No Distress, Calm Neck: Yes: Supple Cardiovascular: Yes: Pulse Irregular Respiratory: Yes: Regular, Diminished, On Nasal O2 Gastrointestinal: Yes: Soft, Hypoactive Bowel Sounds Edema: No Labs: CBC, BMP 08/26/16 05:35 08/26/16 05:35 INR, PTT INR 1.42 (0.82-1.09) H 08/20/16 16:59 Problem List - Problems (1) Sepsis Code(s): A41.9 - SEPSIS, UNSPECIFIED ORGANISM Qualifiers: Sepsis type: sepsis due to unspecified organism Qualified Code(s): A41.9 - Sepsis, unspecified organism (2) Atrial fibrillation Code(s): I48.91 - UNSPECIFIED ATRIAL FIBRILLATION Qualifiers: Atrial fibrillation type: persistent Qualified Code(s): I48.1 - Persistent atrial fibrillation (3) Diastolic dysfunction Code(s): I51.9 - HEART DISEASE, UNSPECIFIED (4) Hyperlipidemia Code(s): E78.5 - HYPERLIPIDEMIA, UNSPECIFIED Qualifiers: Hyperlipidemia type: pure hypercholesterolemia Qualified Code(s): E78.0 - Pure hypercholesterolemia (5) Dementia Code(s): F03.90 - UNSPECIFIED DEMENTIA WITHOUT BEHAVIORAL DISTURBANCE Qualifiers: Dementia type: unspecified type Dementia behavioral disturbance: without behavioral disturbance Qualified Code(s): F03.90 - Unspecified dementia without behavioral disturbance (6) Demand ischemia Code(s): I24.8 - OTHER FORMS OF ACUTE ISCHEMIC HEART DISEASE (7) Coronary artery disease Code(s): I25.10 - ATHSCL HEART DISEASE OF [place] CORONARY ARTERY W/O ANG PCTRS Qualifiers: Coronary Disease-Associated Artery/Lesion type: [place] artery [place] vs. transplanted heart: [place] heart Associated angina: without angina Qualified Code(s): I25.10 - Atherosclerotic heart disease of [place] coronary artery without angina pectoris (8) Anticoagulation adequate with anticoagulant therapy Code(s): Z79.01 - INFORMATION SYSTEMS DIRECTOR (CURRENT) USE OF ANTICOAGULANTS (9) Abnormal liver enzymes Code(s): R74.8 - ABNORMAL LEVELS OF OTHER SERUM ENZYMES (10) Choledocholithiasis Code(s): K80.50 - CALCULUS OF BILE DUCT W/O CHOLANGITIS OR CHOLECYST W/O OBST Assessment/Plan Echo 08/23/2016 Echo: Normal LV size and fxn, mild AR, MR 1. Toxic metabolic encephelopathy referable to sepsis with underlying dementia improving 2. Leukocytosis, demand ischemia, elevated LFT c/w acute cholecystitis/ cholangitis with choledocholithiasis on MRCP improving 3. Persistent afib with tachy-sharon episodes off NOAC on Lovenox silke-procedure 4. CAD demand ischemia referable to #1 5. Diastolic dysfxn with elevated biomarkers 6. Hyperlipidemia 7. H/o breast ca P:1. Empiric zosyn course pending c/s, ERCP then lap celeste 2. Continue Dig 0.125 qd, Imdur 30 qd, Lopressor 50 bid, Lovenox pending ERCP vs repeat MRCP to assess stone passiage and lisinopril 2.5 qd, Lasix 20 qd in AM , Lipitor held pending LFT normalization 3. DVT and GI prophylaxis 4. D/w daughter, may require single chamber pacer if AV deandre agents are to be uptitrated for rate-control, will monitor for now 5. Further GI work up and management (endoscopic and surgical) this week. There appears to be no absolute contraindication in proceeding with planned surgical intervention in view of absence of ischemic symptoms at this time, decompensated congestive heart failure or malignant arrhythmia.
--- NOTE | 2016-08-26 12:06 | PN ---
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, Physician Chief Complaint: awake and no distress daughter at bedside Hicks draining no complaints - Current Medication List Current Medications: Active Medications Acetaminophen (Tylenol -) 650 mg PO Q4H PRN PRN Reason: FEVER > 101 Last Admin: 08/24/16 21:51 Dose: 650 mg Anastrozole (Arimidex -) 1 mg PO DAILY [facility] Last Admin: 08/26/16 09:34 Dose: 1 mg Clonazepam (Klonopin -) 0.5 mg PO TID [facility] Last Admin: 08/26/16 06:34 Dose: 0.5 mg Clotrimazole (Lotrimin 1% Cream -) 1 applic TP BID [facility] Last Admin: 08/26/16 09:34 Dose: 1 applic Divalproex Sodium (Depakote -) 250 mg PO BID [facility] Last Admin: 08/26/16 09:34 Dose: 250 mg Donepezil HCl (Aricept -) 10 mg PO HS [facility] Last Admin: 08/25/16 21:41 Dose: 10 mg Enoxaparin Sodium (Lovenox -) 60 mg SQ BID [facility] Stop: 08/26/16 20:00 Last Admin: 08/26/16 09:33 Dose: 60 mg Escitalopram Oxalate (Lexapro -) 20 mg PO DAILY [facility] Last Admin: 08/26/16 09:33 Dose: 20 mg Furosemide (Lasix -) 20 mg PO DAILY [facility] Last Admin: 08/26/16 09:32 Dose: 20 mg Piperacillin Sod/Tazobactam Sod (Zosyn 3.375gm Ivpb (Pre-Docked)) 50 mls @ 100 mls/hr IVPB Q8H-IV [facility] PRN Reason: Protocol Last Admin: 08/26/16 09:39 Dose: 100 mls/hr Isosorbide Mononitrate (Imdur -) 30 mg PO DAILY [facility] Last Admin: 08/26/16 09:33 Dose: 30 mg Lisinopril (Prinivil) 2.5 mg PO DAILY [facility] Last Admin: 08/26/16 09:32 Dose: 2.5 mg Metoprolol Tartrate (Lopressor -) 50 mg PO BID [facility] Last Admin: 08/26/16 09:32 Dose: 50 mg Pantoprazole Sodium (Protonix -) 40 mg PO DAILY [facility] Last Admin: 08/26/16 09:33 Dose: 40 mg Polyethylene Glycol (Miralax (For Daily Use) -) 17 gm PO DAILY [facility] Last Admin: 08/26/16 09:34 Dose: 17 grams - Objective Vital Signs: Vital Signs Temperature 98 F 08/26/16 08:08 Pulse Rate 85 08/26/16 08:08 Respiratory Rate 20 08/26/16 08:08 Blood Pressure 125/66 08/26/16 08:08 O2 Sat by Pulse Oximetry (%) 98 08/26/16 08:00 Constitutional: Yes: No Distress, Calm Cardiovascular: Yes: Pulse Irregular Respiratory: Yes: Diminished Gastrointestinal: Yes: Normal Bowel Sounds, Soft. No: Abdomen, Obese, Distention, Tenderness Edema: No Psychiatric: Yes: Alert Labs: CBC, BMP 08/26/16 05:35 08/26/16 05:35 INR, PTT INR 1.42 (0.82-1.09) H 08/20/16 16:59 Problem List - Problems (1) Atrial fibrillation Code(s): I48.91 - UNSPECIFIED ATRIAL FIBRILLATION Qualifiers: Atrial fibrillation type: persistent Qualified Code(s): I48.1 - Persistent atrial fibrillation (2) Coronary artery disease Code(s): I25.10 - ATHSCL HEART DISEASE OF [place] CORONARY ARTERY W/O ANG PCTRS Qualifiers: Coronary Disease-Associated Artery/Lesion type: [place] artery [place] vs. transplanted heart: [place] heart Associated angina: without angina Qualified Code(s): I25.10 - Atherosclerotic heart disease of [place] coronary artery without angina pectoris (3) Dementia Code(s): F03.90 - UNSPECIFIED DEMENTIA WITHOUT BEHAVIORAL DISTURBANCE Qualifiers: Dementia type: unspecified type Dementia behavioral disturbance: without behavioral disturbance Qualified Code(s): F03.90 - Unspecified dementia without behavioral disturbance (4) Cholecystitis Code(s): K81.9 - CHOLECYSTITIS, UNSPECIFIED Assessment/Plan PLAN Xarelto held on Lovenox sc BID On iv antibiotics and pain control MRCP -- CBD stones, cholangitis HIDA scan noted-- no cystic duct dilation LFT trending down ERCP planned for Tuesday and Cholecystectomy on Tuesday clear liquid tomorrow hold Lovenox tomorrow AM
--- NOTE | 2016-08-26 14:25 | PN ---
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, Physician History of Present Illness: Awake but lethargic No c/o abdominal pain, N/V No fever/ chills Afebrile WBC WNL LFTs improved - Current Medication List Current Medications: Active Medications Acetaminophen (Tylenol -) 650 mg PO Q4H PRN PRN Reason: FEVER > 101 Last Admin: 08/24/16 21:51 Dose: 650 mg Anastrozole (Arimidex -) 1 mg PO DAILY [facility] Last Admin: 08/26/16 09:34 Dose: 1 mg Clonazepam (Klonopin -) 0.5 mg PO TID [facility] Last Admin: 08/26/16 13:59 Dose: 0.5 mg Clotrimazole (Lotrimin 1% Cream -) 1 applic TP BID [facility] Last Admin: 08/26/16 09:34 Dose: 1 applic Divalproex Sodium (Depakote -) 250 mg PO BID [facility] Last Admin: 08/26/16 09:34 Dose: 250 mg Donepezil HCl (Aricept -) 10 mg PO HS [facility] Last Admin: 08/25/16 21:41 Dose: 10 mg Enoxaparin Sodium (Lovenox -) 60 mg SQ BID [facility] Stop: 08/26/16 20:00 Last Admin: 08/26/16 09:33 Dose: 60 mg Escitalopram Oxalate (Lexapro -) 20 mg PO DAILY [facility] Last Admin: 08/26/16 09:33 Dose: 20 mg Furosemide (Lasix -) 20 mg PO DAILY [facility] Last Admin: 08/26/16 09:32 Dose: 20 mg Piperacillin Sod/Tazobactam Sod (Zosyn 3.375gm Ivpb (Pre-Docked)) 50 mls @ 100 mls/hr IVPB Q8H-IV [facility] PRN Reason: Protocol Last Admin: 08/26/16 09:39 Dose: 100 mls/hr Isosorbide Mononitrate (Imdur -) 30 mg PO DAILY [facility] Last Admin: 08/26/16 09:33 Dose: 30 mg Lisinopril (Prinivil) 2.5 mg PO DAILY [facility] Last Admin: 08/26/16 09:32 Dose: 2.5 mg Metoprolol Tartrate (Lopressor -) 50 mg PO BID [facility] Last Admin: 08/26/16 09:32 Dose: 50 mg Pantoprazole Sodium (Protonix -) 40 mg PO DAILY [facility] Last Admin: 08/26/16 09:33 Dose: 40 mg Polyethylene Glycol (Miralax (For Daily Use) -) 17 gm PO DAILY [facility] Last Admin: 08/26/16 09:34 Dose: 17 grams - Objective Vital Signs: Vital Signs Temperature 98.8 F 08/26/16 13:51 Pulse Rate 83 08/26/16 13:51 Respiratory Rate 20 08/26/16 13:51 Blood Pressure 85/49 08/26/16 13:51 O2 Sat by Pulse Oximetry (%) 98 08/26/16 08:00 Constitutional: Yes: No Distress Cardiovascular: Yes: Regular Rate and Rhythm, S1, S2 Respiratory: Yes: Diminished Gastrointestinal: Yes: Normal Bowel Sounds, Soft. No: Tenderness Edema: No Labs: CBC, BMP 08/26/16 05:35 08/26/16 05:35 INR, PTT INR 1.42 (0.82-1.09) H 08/20/16 16:59 Assessment/Plan Fever/ leukocytosis / elevated LFTs/ hx vomiting- acute cholecystitis - clinically improved + Urine c/s c/w contamination Possible sepsis secondary to biliary tract Continue empiric zosyn For ERCP, cholecystectomy
--- NOTE | 2016-08-26 15:56 | PN ---
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, Physician - Current Medication List Current Medications: Active Medications Acetaminophen (Tylenol -) 650 mg PO Q4H PRN PRN Reason: FEVER > 101 Last Admin: 08/24/16 21:51 Dose: 650 mg Anastrozole (Arimidex -) 1 mg PO DAILY [facility] Last Admin: 08/26/16 09:34 Dose: 1 mg Clonazepam (Klonopin -) 0.5 mg PO TID [facility] Last Admin: 08/26/16 13:59 Dose: 0.5 mg Clotrimazole (Lotrimin 1% Cream -) 1 applic TP BID [facility] Last Admin: 08/26/16 09:34 Dose: 1 applic Divalproex Sodium (Depakote -) 250 mg PO BID [facility] Last Admin: 08/26/16 09:34 Dose: 250 mg Donepezil HCl (Aricept -) 10 mg PO HS [facility] Last Admin: 08/25/16 21:41 Dose: 10 mg Enoxaparin Sodium (Lovenox -) 60 mg SQ BID [facility] Stop: 08/26/16 20:00 Last Admin: 08/26/16 09:33 Dose: 60 mg Escitalopram Oxalate (Lexapro -) 20 mg PO DAILY [facility] Last Admin: 08/26/16 09:33 Dose: 20 mg Furosemide (Lasix -) 20 mg PO DAILY [facility] Last Admin: 08/26/16 09:32 Dose: 20 mg Piperacillin Sod/Tazobactam Sod (Zosyn 3.375gm Ivpb (Pre-Docked)) 50 mls @ 100 mls/hr IVPB Q8H-IV [facility] PRN Reason: Protocol Last Admin: 08/26/16 09:39 Dose: 100 mls/hr Sodium Chloride (Normal Saline -) 500 mls @ 500 mls/hr IV ASDIR [facility] Stop: 08/26/16 16:59 Isosorbide Mononitrate (Imdur -) 30 mg PO DAILY [facility] Last Admin: 08/26/16 09:33 Dose: 30 mg Lisinopril (Prinivil) 2.5 mg PO DAILY [facility] Last Admin: 08/26/16 09:32 Dose: 2.5 mg Pantoprazole Sodium (Protonix -) 40 mg PO DAILY [facility] Last Admin: 08/26/16 09:33 Dose: 40 mg Polyethylene Glycol (Miralax (For Daily Use) -) 17 gm PO DAILY [facility] Last Admin: 08/26/16 09:34 Dose: 17 grams - Objective Vital Signs: Vital Signs Temperature 98.8 F 08/26/16 13:51 Pulse Rate 83 08/26/16 13:51 Respiratory Rate 20 08/26/16 13:51 Blood Pressure 85/49 08/26/16 13:51 O2 Sat by Pulse Oximetry (%) 98 08/26/16 08:00 Labs: CBC, BMP 08/26/16 05:35 08/26/16 05:35 INR, PTT INR 1.42 (0.82-1.09) H 08/20/16 16:59 Problem List - Problems (1) Cholelithiasis Code(s): K80.20 - CALCULUS OF GALLBLADDER W/O CHOLECYSTITIS W/O OBSTRUCTION Qualifiers: Cholelithiasis location: gallbladder and bile duct Biliary obstruction : with biliary obstruction (2) Abnormal liver function Code(s): K76.89 - OTHER SPECIFIED DISEASES OF LIVER (3) Dilated bile duct Code(s): K83.8 - OTHER SPECIFIED DISEASES OF BILIARY TRACT Assessment/Plan Surgery: Afebrile. Abdomen is soft, not tender. Not icteric. AST , ALT rending down. She is scheduled for ERCP tomorrow. Possible cholecystectomy on Tuesday. Family aware.
[2016-08-26] MEDS ORDERED: SODIUM CHLORIDE 500 ML IV SCH (16:00)
--- NOTE | 2016-08-26 18:30 | PN ---
GI 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 Subjective: no abdominal pain, poor appetite, reviewed Dr Abad note, - Objective Vital Signs: Vital Signs Temperature 98.8 F 08/26/16 13:51 Pulse Rate 83 08/26/16 13:51 Respiratory Rate 20 08/26/16 13:51 Blood Pressure 85/49 08/26/16 13:51 O2 Sat by Pulse Oximetry (%) 98 08/26/16 08:00 Constitutional: Well Nourished Eyes: Yes: Conjunctiva Clear HENT: Yes: Atraumatic Neck: Yes: Supple Cardiovascular: Yes: Regular Rate and Rhythm Respiratory: Yes: CTA Bilaterally Labs: CBC, BMP 08/26/16 05:35 08/26/16 05:35 INR, PTT INR 1.42 (0.82-1.09) H 08/20/16 16:59 Problem List - Problems (1) Acute cholangitis Assessment/Plan: --resolved Code(s): K83.0 - CHOLANGITIS (2) Choledocholithiasis Assessment/Plan: suspect underlying CBD, pt high risk of retained stone as pt also has underlying periampullary diverticula R>for ERCP tomorow Code(s): K80.50 - CALCULUS OF BILE DUCT W/O CHOLANGITIS OR CHOLECYST W/O OBST
[2016-08-26] MEDS: DONEPEZIL HCL 10 MG TABLET (FP) PO SCH (21:17)
[2016-08-27] MEDS: PIPERACILLIN/TAZOB 3.375 GM 50 ML IVPB SCH ×3 (03:02→17:33)
[2016-08-27] MEDS: clonazePAM 0.5 MG TABLET PO SCH ×3 (05:50→23:41)
[2016-08-27 08:35] LABS: ALBUMIN 2.3 g/dl (3.4-5.0); ALK PHOS 185 U/L (45-117); ANION GAP 6 (8-16); BILIRUBIN,TOTAL 0.5 mg/dL (0.2-1.0); CALCIUM 8.7 mg/dL (8.5-10.1); CO2 32 mmol/L (21-32); CREATININE 0.7 mg/dL (0.55-1.02); GLUCOSE,RANDOM 89 mg/dL (74-106); SGOT/AST 36 U/L (15-37); SGPT/ALT 63 U/L (12-78); TOT PROT 5.6 g/dl (6.4-8.2)
--- NOTE | 2016-08-27 09:40 | PN ---
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, Physician History of Present Illness: Afebrile, rate-controlled afib. Plan for ERCP today. - Current Medication List Current Medications: Active Medications Acetaminophen (Tylenol -) 650 mg PO Q4H PRN PRN Reason: FEVER > 101 Last Admin: 08/24/16 21:51 Dose: 650 mg Anastrozole (Arimidex -) 1 mg PO DAILY [facility] Last Admin: 08/26/16 09:34 Dose: 1 mg Clonazepam (Klonopin -) 0.5 mg PO TID [facility] Last Admin: 08/27/16 05:50 Dose: 0.5 mg Clotrimazole (Lotrimin 1% Cream -) 1 applic TP BID [facility] Last Admin: 08/26/16 21:18 Dose: Not Given Divalproex Sodium (Depakote -) 250 mg PO BID [facility] Last Admin: 08/26/16 21:17 Dose: 250 mg Donepezil HCl (Aricept -) 10 mg PO HS [facility] Last Admin: 08/26/16 21:17 Dose: 10 mg Escitalopram Oxalate (Lexapro -) 20 mg PO DAILY [facility] Last Admin: 08/26/16 09:33 Dose: 20 mg Furosemide (Lasix -) 20 mg PO DAILY [facility] Last Admin: 08/26/16 09:32 Dose: 20 mg Piperacillin Sod/Tazobactam Sod (Zosyn 3.375gm Ivpb (Pre-Docked)) 50 mls @ 100 mls/hr IVPB Q8H-IV [facility] PRN Reason: Protocol Last Admin: 08/27/16 03:02 Dose: 100 mls/hr Isosorbide Mononitrate (Imdur -) 30 mg PO DAILY [facility] Last Admin: 08/26/16 09:33 Dose: 30 mg Lisinopril (Prinivil) 2.5 mg PO DAILY [facility] Last Admin: 08/26/16 09:32 Dose: 2.5 mg Pantoprazole Sodium (Protonix -) 40 mg PO DAILY [facility] Last Admin: 08/26/16 09:33 Dose: 40 mg Polyethylene Glycol (Miralax (For Daily Use) -) 17 gm PO DAILY [facility] Last Admin: 08/26/16 09:34 Dose: 17 grams - Objective Vital Signs: Vital Signs Temperature 97.9 F 08/27/16 06:00 Pulse Rate 88 08/27/16 06:00 Respiratory Rate 16 08/27/16 06:00 Blood Pressure 137/94 08/27/16 06:00 O2 Sat by Pulse Oximetry (%) 98 08/26/16 20:36 Constitutional: Yes: No Distress, Calm Neck: Yes: Supple Cardiovascular: Yes: Pulse Irregular Respiratory: Yes: Regular, Diminished Gastrointestinal: Yes: Soft, Hypoactive Bowel Sounds Edema: No Labs: CBC, BMP 08/26/16 05:35 08/27/16 05:35 INR, PTT INR 1.42 (0.82-1.09) H 08/20/16 16:59 Problem List - Problems (1) Sepsis Code(s): A41.9 - SEPSIS, UNSPECIFIED ORGANISM Qualifiers: Sepsis type: sepsis due to unspecified organism Qualified Code(s): A41.9 - Sepsis, unspecified organism (2) Atrial fibrillation Code(s): I48.91 - UNSPECIFIED ATRIAL FIBRILLATION Qualifiers: Atrial fibrillation type: persistent Qualified Code(s): I48.1 - Persistent atrial fibrillation (3) Diastolic dysfunction Code(s): I51.9 - HEART DISEASE, UNSPECIFIED (4) Hyperlipidemia Code(s): E78.5 - HYPERLIPIDEMIA, UNSPECIFIED Qualifiers: Hyperlipidemia type: pure hypercholesterolemia Qualified Code(s): E78.0 - Pure hypercholesterolemia (5) Dementia Code(s): F03.90 - UNSPECIFIED DEMENTIA WITHOUT BEHAVIORAL DISTURBANCE Qualifiers: Dementia type: unspecified type Dementia behavioral disturbance: without behavioral disturbance Qualified Code(s): F03.90 - Unspecified dementia without behavioral disturbance (6) Demand ischemia Code(s): I24.8 - OTHER FORMS OF ACUTE ISCHEMIC HEART DISEASE (7) Coronary artery disease Code(s): I25.10 - ATHSCL HEART DISEASE OF [place] CORONARY ARTERY W/O ANG PCTRS Qualifiers: Coronary Disease-Associated Artery/Lesion type: [place] artery [place] vs. transplanted heart: [place] heart Associated angina: without angina Qualified Code(s): I25.10 - Atherosclerotic heart disease of [place] coronary artery without angina pectoris (8) Anticoagulation adequate with anticoagulant therapy Code(s): Z79.01 - SENIOR CARE (CURRENT) USE OF ANTICOAGULANTS (9) Abnormal liver enzymes Code(s): R74.8 - ABNORMAL LEVELS OF OTHER SERUM ENZYMES (10) Choledocholithiasis Code(s): K80.50 - CALCULUS OF BILE DUCT W/O CHOLANGITIS OR CHOLECYST W/O OBST Assessment/Plan Echo 08/23/2016 Echo: Normal LV size and fxn, mild AR, MR 1. Toxic metabolic encephelopathy referable to sepsis with underlying dementia improving 2. Leukocytosis, demand ischemia, elevated LFT c/w acute cholecystitis/ cholangitis with choledocholithiasis on MRCP improving 3. Persistent afib with tachy-sharon episodes off NOAC and Lovenox silke-procedure 4. CAD demand ischemia referable to #1 5. Diastolic dysfxn with elevated biomarkers 6. Hyperlipidemia 7. H/o breast ca P:1. Empiric zosyn course c&s NGTD, plan for ERCP then lap celeste 2. Continue Dig 0.125 qd, Imdur 30 qd, Lopressor 50 bid, lisinopril 2.5 qd, Lasix 20 qd in AM, Lipitor held pending LFT normalization 3. DVT and GI prophylaxis 4. D/w daughter, may require single chamber pacer if AV deandre agents are to be uptitrated for rate-control, will monitor for now 5. Further GI work up and management (endoscopic and surgical) this week. There appears to be no absolute contraindication in proceeding with planned surgical intervention in view of absence of ischemic symptoms at this time, decompensated congestive heart failure or malignant arrhythmia.
[2016-08-27] MEDS: PANTOPRAZOLE 40 MG TABLET (FP) PO SCH (10:03)
[2016-08-27] MEDS: FUROSEMIDE 20 MG TABLET (FP) PO SCH (10:03)
[2016-08-27] MEDS: DIVALPROEX SODIUM 250 MG TABLET E.C. (FP) PO SCH ×2 (10:04→23:42)
[2016-08-27] MEDS: ESCITALOPRAM OXALATE 20 MG TABLET (FP) PO SCH (10:04)
[2016-08-27] MEDS: CLOTRIMAZOLE 1% CREAM 15 GM TUBE TP SCH ×2 (10:04→21:30)
[2016-08-27] MEDS: POLYETHYLENE GLYCOL 3350 119 GM BTL PO SCH (10:04)
[2016-08-27] MEDS: ISOSORBIDE MONONITRATE 30 MG TAB.SR.24H (FP) PO SCH (10:04)
[2016-08-27] MEDS: LISINOPRIL 5 MG TABLET (FP) PO SCH (10:04)
[2016-08-27] MEDS: ANASTROZOLE 1 MG TABLET PO SCH (10:04)
--- NOTE | 2016-08-27 11:13 | PN ---
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 (short form) - Note 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: SUBJECTIVE: Patient seen and examined. Chart reviewed. Comfortable. Daughter at bedside. Denies pain. OBJECTIVE: Vital Signs - 8 hr 08/27/16 08/27/16 06:00 08:00 Temperature 97.9 F Pulse Rate 88 Respiratory 16 18 Rate Blood Pressure 137/94 O2 Sat by Pulse 99 Oximetry (%) Intake & Output 08/26/16 08/27/16 08/27/16 23:59 07:59 15:59 Intake Total 100 Output Total 200 Balance -100 Intake: IVPB 100 Output: Urine 200 Hicks 200 Other: Voiding Method Indwelling Catheter Indwelling Catheter Bowel Movement No Active Medications Acetaminophen (Tylenol -) 650 mg PO Q4H PRN PRN Reason: FEVER > 101 Last Admin: 08/24/16 21:51 Dose: 650 mg Anastrozole (Arimidex -) 1 mg PO DAILY [facility] Last Admin: 08/27/16 10:04 Dose: 1 mg Clonazepam (Klonopin -) 0.5 mg PO TID [facility] Last Admin: 08/27/16 05:50 Dose: 0.5 mg Clotrimazole (Lotrimin 1% Cream -) 1 applic TP BID [facility] Last Admin: 08/27/16 10:04 Dose: 1 applic Divalproex Sodium (Depakote -) 250 mg PO BID [facility] Last Admin: 08/27/16 10:04 Dose: 250 mg Donepezil HCl (Aricept -) 10 mg PO HS [facility] Last Admin: 08/26/16 21:17 Dose: 10 mg Escitalopram Oxalate (Lexapro -) 20 mg PO DAILY [facility] Last Admin: 08/27/16 10:04 Dose: 20 mg Furosemide (Lasix -) 20 mg PO DAILY [facility] Last Admin: 08/27/16 10:03 Dose: 20 mg Piperacillin Sod/Tazobactam Sod (Zosyn 3.375gm Ivpb (Pre-Docked)) 50 mls @ 100 mls/hr IVPB Q8H-IV [place] PRN Reason: Protocol Last Admin: 08/27/16 10:03 Dose: 100 mls/hr Isosorbide Mononitrate (Imdur -) 30 mg PO DAILY [facility] Last Admin: 08/27/16 10:04 Dose: 30 mg Lisinopril (Prinivil) 2.5 mg PO DAILY [facility] Last Admin: 08/27/16 10:04 Dose: 2.5 mg Pantoprazole Sodium (Protonix -) 40 mg PO DAILY [facility] Last Admin: 08/27/16 10:03 Dose: 40 mg Polyethylene Glycol (Miralax (For Daily Use) -) 17 gm PO DAILY [facility] Last Admin: 08/27/16 10:04 Dose: 17 grams CBC, BMP 08/26/16 05:35 08/27/16 05:35 Laboratory Results - last 24 hr 08/27/16 05:35 Sodium 142 Potassium 4.7 Chloride 104 Carbon Dioxide 32 Anion Gap 6 L BUN 15 Creatinine 0.7 Creat Clearance w eGFR > 60 Random Glucose 89 Calcium 8.7 Total Bilirubin 0.5 D AST 36 ALT 63 Alkaline Phosphatase 185 H Total Protein 5.6 L Albumin 2.3 L Microbiology 08/21/16 18:00 Respiratory Virus Panel - Final Nasopharyngeal Swab PHYSICAL EXAMINATION: Constitutional: Yes: No Distress, Calm Cardiovascular: Yes: Pulse Irregular Respiratory: Yes: Diminished Gastrointestinal: Yes: Normal Bowel Sounds, Soft. No: Abdomen, Obese, Distention, Tenderness Edema: No Problem List - Problems (1) Atrial fibrillation Code(s): I48.91 - UNSPECIFIED ATRIAL FIBRILLATION Qualifiers: Atrial fibrillation type: persistent Qualified Code(s): I48.1 - Persistent atrial fibrillation (2) Coronary artery disease Code(s): I25.10 - ATHSCL HEART DISEASE OF [place] CORONARY ARTERY W/O ANG PCTRS Qualifiers: Coronary Disease-Associated Artery/Lesion type: [place] artery [place] vs. transplanted heart: [place] heart Associated angina: without angina Qualified Code(s): I25.10 - Atherosclerotic heart disease of [place] coronary artery without angina pectoris (3) Dementia Code(s): F03.90 - UNSPECIFIED DEMENTIA WITHOUT BEHAVIORAL DISTURBANCE Qualifiers: Dementia type: unspecified type Dementia behavioral disturbance: without behavioral disturbance Qualified Code(s): F03.90 - Unspecified dementia without behavioral disturbance (4) Cholecystitis Code(s): K81.9 - CHOLECYSTITIS, UNSPECIFIED ASSESSMENT & PLAN: - Stable. - LFTs trending down. - Continue same treatment. - MRCP today. - Anticipate cholecystectomy on Tuesday. - Discussed with Dr. Catherine. - Discussed with patient's daughter also. - Will follow. Documentation prepared by Kasey Manuel, acting as a medical housekeeper for Sasha Paniagua MD. <Kasey Manuel - Last Filed: 08/27/16 11:26> Problem List - Problems (1) Sepsis Code(s): A41.9 - SEPSIS, UNSPECIFIED ORGANISM Qualifiers: Sepsis type: sepsis due to unspecified organism Qualified Code(s): A41.9 - Sepsis, unspecified organism <Sasha Paniagua - Last Filed: 08/27/16 11:13>
[2016-08-27] MEDS ORDERED: SODIUM CHLORIDE 250 ML IV ONE (15:15)
--- NOTE | 2016-08-27 15:17 | PN ---
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, Physician History of Present Illness: No c/o abdominal pain No reported N/V/D No fever/chills - Current Medication List Current Medications: Active Medications Acetaminophen (Tylenol -) 650 mg PO Q4H PRN PRN Reason: FEVER > 101 Last Admin: 08/24/16 21:51 Dose: 650 mg Anastrozole (Arimidex -) 1 mg PO DAILY [facility] Last Admin: 08/27/16 10:04 Dose: 1 mg Clonazepam (Klonopin -) 0.5 mg PO TID [facility] Last Admin: 08/27/16 14:58 Dose: Not Given Clotrimazole (Lotrimin 1% Cream -) 1 applic TP BID [facility] Last Admin: 08/27/16 10:04 Dose: 1 applic Divalproex Sodium (Depakote -) 250 mg PO BID [facility] Last Admin: 08/27/16 10:04 Dose: 250 mg Donepezil HCl (Aricept -) 10 mg PO HS [facility] Last Admin: 08/26/16 21:17 Dose: 10 mg Escitalopram Oxalate (Lexapro -) 20 mg PO DAILY [facility] Last Admin: 08/27/16 10:04 Dose: 20 mg Furosemide (Lasix -) 20 mg PO DAILY [facility] Last Admin: 08/27/16 10:03 Dose: 20 mg Piperacillin Sod/Tazobactam Sod (Zosyn 3.375gm Ivpb (Pre-Docked)) 50 mls @ 100 mls/hr IVPB Q8H-IV [place] PRN Reason: Protocol Last Admin: 08/27/16 10:03 Dose: 100 mls/hr Sodium Chloride (Normal Saline -) 250 mls @ 250 mls/hr IV ASDIR ONE Stop: 08/27/16 16:14 Isosorbide Mononitrate (Imdur -) 30 mg PO DAILY [facility] Last Admin: 08/27/16 10:04 Dose: 30 mg Lisinopril (Prinivil) 2.5 mg PO DAILY [facility] Last Admin: 08/27/16 10:04 Dose: 2.5 mg Pantoprazole Sodium (Protonix -) 40 mg PO DAILY [facility] Last Admin: 08/27/16 10:03 Dose: 40 mg Polyethylene Glycol (Miralax (For Daily Use) -) 17 gm PO DAILY [facility] Last Admin: 08/27/16 10:04 Dose: 17 grams - Objective Vital Signs: Vital Signs Temperature 97.9 F 08/27/16 06:00 Pulse Rate 100 H 08/27/16 14:00 Respiratory Rate 20 08/27/16 14:00 Blood Pressure 78/54 08/27/16 14:00 O2 Sat by Pulse Oximetry (%) 99 08/27/16 08:00 Constitutional: Yes: No Distress Eyes: Yes: Conjunctiva Clear Cardiovascular: Yes: Regular Rate and Rhythm, S1, S2 Respiratory: Yes: Diminished Gastrointestinal: Yes: Normal Bowel Sounds, Soft. No: Tenderness Peripheral Pulses WNL: No Labs: CBC, BMP 08/26/16 05:35 08/27/16 05:35 INR, PTT INR 1.42 (0.82-1.09) H 08/20/16 16:59 Assessment/Plan Fever/ leukocytosis / elevated LFTs/ hx vomiting- acute cholecystitis - clinically improved + Urine c/s c/w contamination Possible sepsis secondary to biliary tract Continue empiric zosyn For ERCP today, cholecystectomy next week
--- NOTE | 2016-08-27 16:08 | PN ---
GI 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 Subjective: patient has episodes of hypotension for the past 3 days,clinically asymptomatic - Objective Vital Signs: Vital Signs Temperature 97.9 F 08/27/16 06:00 Pulse Rate 85 08/27/16 15:43 Respiratory Rate 20 08/27/16 14:00 Blood Pressure 118/76 08/27/16 15:43 O2 Sat by Pulse Oximetry (%) 99 08/27/16 08:00 Constitutional: Well Nourished Eyes: Yes: Conjunctiva Clear HENT: Yes: Atraumatic Neck: Yes: Trachea Midline Cardiovascular: Yes: Regular Rate and Rhythm Respiratory: Yes: CTA Bilaterally ...Palpate: Yes: Soft. No: Firm/Rigid, Guarding, Hepatomegaly, Mass, Pulsatile Mass, Splenomegaly, Tenderness Labs: CBC, BMP 08/26/16 05:35 08/27/16 05:35 INR, PTT INR 1.42 (0.82-1.09) H 08/20/16 16:59 Problem List - Problems (1) Acute cholangitis Assessment/Plan: --resolved R>will start on Actigall 300mg bid d/w Dr Dooley and her daughter, will continue conservative management at this time and perform ERCP if symptoms recur, patient is high risk for any procedures at this time Code(s): K83.0 - CHOLANGITIS (2) Choledocholithiasis Code(s): K80.50 - CALCULUS OF BILE DUCT W/O CHOLANGITIS OR CHOLECYST W/O OBST
[2016-08-27] MEDS ORDERED: clonazePAM 0.5 MG TABLET PO ONE (18:00)
--- NOTE | 2016-08-27 19:20 | PN ---
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, Physician - Current Medication List Current Medications: Active Medications Acetaminophen (Tylenol -) 650 mg PO Q4H PRN PRN Reason: FEVER > 101 Last Admin: 08/24/16 21:51 Dose: 650 mg Anastrozole (Arimidex -) 1 mg PO DAILY [facility] Last Admin: 08/27/16 10:04 Dose: 1 mg Clonazepam (Klonopin -) 0.5 mg PO TID [facility] Last Admin: 08/27/16 14:58 Dose: Not Given Clotrimazole (Lotrimin 1% Cream -) 1 applic TP BID [facility] Last Admin: 08/27/16 10:04 Dose: 1 applic Divalproex Sodium (Depakote -) 250 mg PO BID [facility] Last Admin: 08/27/16 10:04 Dose: 250 mg Donepezil HCl (Aricept -) 10 mg PO HS [facility] Last Admin: 08/26/16 21:17 Dose: 10 mg Escitalopram Oxalate (Lexapro -) 20 mg PO DAILY [facility] Last Admin: 08/27/16 10:04 Dose: 20 mg Furosemide (Lasix -) 20 mg PO DAILY [facility] Last Admin: 08/27/16 10:03 Dose: 20 mg Piperacillin Sod/Tazobactam Sod (Zosyn 3.375gm Ivpb (Pre-Docked)) 50 mls @ 100 mls/hr IVPB Q8H-IV [place] PRN Reason: Protocol Last Admin: 08/27/16 17:33 Dose: 100 mls/hr Lisinopril (Prinivil) 2.5 mg PO DAILY [facility] Last Admin: 08/27/16 10:04 Dose: 2.5 mg Pantoprazole Sodium (Protonix -) 40 mg PO DAILY [facility] Last Admin: 08/27/16 10:03 Dose: 40 mg Polyethylene Glycol (Miralax (For Daily Use) -) 17 gm PO DAILY [facility] Last Admin: 08/27/16 10:04 Dose: 17 grams Ursodiol (Actigal -) 300 mg PO BID [facility] - Objective Vital Signs: Vital Signs Temperature 98.2 F 08/27/16 18:55 Pulse Rate 95 H 08/27/16 18:55 Respiratory Rate 20 08/27/16 18:55 Blood Pressure 116/64 08/27/16 18:55 O2 Sat by Pulse Oximetry (%) 93 L 08/27/16 18:55 Labs: CBC, BMP 08/26/16 05:35 08/27/16 05:35 INR, PTT INR 1.42 (0.82-1.09) H 08/20/16 16:59 Problem List - Problems (1) Cholelithiasis Code(s): K80.20 - CALCULUS OF GALLBLADDER W/O CHOLECYSTITIS W/O OBSTRUCTION Qualifiers: Cholelithiasis location: gallbladder and bile duct Biliary obstruction : with biliary obstruction (2) Abnormal liver function Code(s): K76.89 - OTHER SPECIFIED DISEASES OF LIVER (3) Dilated bile duct Code(s): K83.8 - OTHER SPECIFIED DISEASES OF BILIARY TRACT Assessment/Plan SurgerY; Unable to cannulate the CBD, and extract CBD calculus. Patient became hypotensive. Patient had sepsis , secondary to biliary obstruction. Octigal will not dissolve CBD stones. When patient recovers should consider common bile duct exploration and cholecystectomy.
[2016-08-27] MEDS ORDERED: PT OWN MED DRAWER 7, Y5N ONE (22:20)
[2016-08-27] MEDS: URSODIOL 300 MG CAPSULE PO SCH (23:41)
[2016-08-27] MEDS: DONEPEZIL HCL 10 MG TABLET (FP) PO SCH (23:42)
--- NOTE | 2016-08-28 04:37 | HOSP ---
Subjective - Review of Symptoms Events since last encounter: RN called to inform inform that patient right leg got stuck in side rail of bed. Patient seen and examined Patient lying comfortably in bed LE of right leg: small abrasion around 3 x 1 cm present on middle of arm[place] of right leg, no bony tenderness, Physical Examination Vital Signs: Vital Signs Temperature 98 F 08/27/16 22:00 Pulse Rate 88 08/27/16 22:00 Respiratory Rate 20 08/27/16 22:00 Blood Pressure 120/72 08/27/16 22:00 O2 Sat by Pulse Oximetry (%) 93 L 08/27/16 21:00 Labs: CBC, BMP 08/26/16 05:35 08/27/16 05:35
--- NOTE | 2016-08-28 04:44 | HOSP ---
Subjective - Review of Symptoms Events since last encounter: RN called to inform that patient leg got stuck in side rail of bed and has abrasion. Patient seen and examined Patient lying comfortably in bed Bp 132/78 pR 119 examination of right leg small 3x1 cm abrasion present on middle of arm[place] of right leg,, no bony tenderness, peripheral pulses palpable, no cynosis, warm to touch. cvs irregular pulse, s1s2 normal chest b/l air entry present, no wheez plan clean abrasion with betadine and apply bacitracin. monitor vitals. Physical Examination Vital Signs: Vital Signs Temperature 98 F 08/27/16 22:00 Pulse Rate 88 08/27/16 22:00 Respiratory Rate 20 08/27/16 22:00 Blood Pressure 120/72 08/27/16 22:00 O2 Sat by Pulse Oximetry (%) 93 L 08/27/16 21:00 Labs: CBC, BMP 08/26/16 05:35 08/27/16 05:35 Visit type - Emergency Visit Emergency Visit: Yes ED Registration Date: 08/20/16 Care time: The patient presented to the Emergency Department on the above date and was hospitalized for further evaluation of their emergent condition. - New Patient This patient is new to me today: Yes Date on this admission: 08/28/16 - Critical Care Critical Care patient: No
[2016-08-28] MEDS: PIPERACILLIN/TAZOB 3.375 GM 50 ML IVPB SCH ×2 (05:00→09:59)
[2016-08-28] MEDS: BACITRACIN 30 GM TUBE TOPICAL OINTMENT TP SCH ×2 (06:30→09:57)
[2016-08-28] MEDS: clonazePAM 0.5 MG TABLET PO SCH ×3 (07:00→21:31)
[2016-08-28] MEDS ORDERED: ESCITALOPRAM OXALATE 10 MG TABLET (FP) ONE (09:48)
[2016-08-28] MEDS ORDERED: PT OWN MED DRAWER 7, Y5N ONE ×3 (09:49→20:58)
[2016-08-28] MEDS: FUROSEMIDE 20 MG TABLET (FP) PO SCH (09:53)
[2016-08-28] MEDS: LISINOPRIL 5 MG TABLET (FP) PO SCH (09:53)
[2016-08-28] MEDS: URSODIOL 300 MG CAPSULE PO SCH ×2 (09:53→21:31)
[2016-08-28] MEDS: PANTOPRAZOLE 40 MG TABLET (FP) PO SCH (09:55)
[2016-08-28] MEDS: POLYETHYLENE GLYCOL 3350 119 GM BTL PO SCH (09:56)
[2016-08-28] MEDS: ESCITALOPRAM OXALATE 20 MG TABLET (FP) PO SCH (09:56)
[2016-08-28] MEDS: ANASTROZOLE 1 MG TABLET PO SCH (09:58)
[2016-08-28] MEDS ORDERED: BACITRACIN 30 GM TUBE TOPICAL OINTMENT TP SCH (10:00)
--- NOTE | 2016-08-28 11:07 | PN ---
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, Physician History of Present Illness: Awake but lethargic No c/o abdominal pain No N/V Remains afebrile WBC WNL LFTs improved - Current Medication List Current Medications: Active Medications Acetaminophen (Tylenol -) 650 mg PO Q4H PRN PRN Reason: FEVER > 101 Last Admin: 08/24/16 21:51 Dose: 650 mg Anastrozole (Arimidex -) 1 mg PO DAILY [facility] Last Admin: 08/28/16 09:58 Dose: 1 mg Bacitracin (Bacitracin -) 1 applic TP DAILY [facility] Last Admin: 08/28/16 09:57 Dose: 1 applic Clonazepam (Klonopin -) 0.5 mg PO TID [facility] Last Admin: 08/28/16 07:00 Dose: 0.5 mg Clotrimazole (Lotrimin 1% Cream -) 1 applic TP BID [facility] Last Admin: 08/27/16 21:30 Dose: 1 applic Divalproex Sodium (Depakote -) 250 mg PO BID [facility] Last Admin: 08/27/16 23:42 Dose: 250 mg Donepezil HCl (Aricept -) 10 mg PO HS [facility] Last Admin: 08/27/16 23:42 Dose: 10 mg Escitalopram Oxalate (Lexapro -) 20 mg PO DAILY [facility] Last Admin: 08/28/16 09:56 Dose: 20 mg Furosemide (Lasix -) 20 mg PO DAILY [facility] Last Admin: 08/28/16 09:53 Dose: 20 mg Piperacillin Sod/Tazobactam Sod (Zosyn 3.375gm Ivpb (Pre-Docked)) 50 mls @ 100 mls/hr IVPB Q8H-IV [place] PRN Reason: Protocol Last Admin: 08/28/16 09:59 Dose: 100 mls/hr Lisinopril (Prinivil) 2.5 mg PO DAILY [facility] Last Admin: 08/28/16 09:53 Dose: 2.5 mg Pantoprazole Sodium (Protonix -) 40 mg PO DAILY [facility] Last Admin: 08/28/16 09:55 Dose: 40 mg Polyethylene Glycol (Miralax (For Daily Use) -) 17 gm PO DAILY [facility] Last Admin: 08/28/16 09:56 Dose: 17 grams Ursodiol (Actigal -) 300 mg PO BID [facility] Last Admin: 08/28/16 09:53 Dose: 300 mg - Objective Vital Signs: Vital Signs Temperature 98.1 F 08/28/16 08:00 Pulse Rate 103 H 08/28/16 08:00 Respiratory Rate 18 08/28/16 08:00 Blood Pressure 127/78 08/28/16 08:00 O2 Sat by Pulse Oximetry (%) 93 L 08/27/16 21:00 Constitutional: Yes: No Distress Eyes: Yes: Conjunctiva Clear Cardiovascular: Yes: Regular Rate and Rhythm, S1, S2 Respiratory: Yes: CTA Bilaterally Gastrointestinal: Yes: Normal Bowel Sounds, Soft, Other (sl distended). No: Tenderness Edema: No Labs: CBC, BMP 08/26/16 05:35 08/27/16 05:35 INR, PTT INR 1.42 (0.82-1.09) H 08/20/16 16:59 Assessment/Plan Fever/ leukocytosis / elevated LFTs/ hx vomiting- acute cholecystitis - clinically improved + Urine c/s c/w contamination Possible sepsis secondary to biliary tract ERCP cancelled Remains afebrile with normal WBC, improved LFTs Will observe off antibiotics Cholecystectomy per surgery
--- NOTE | 2016-08-28 12:18 | PN ---
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, Physician Chief Complaint: awake and no distress daughter at bedside Hicks draining no complaints - Current Medication List Current Medications: Active Medications Acetaminophen (Tylenol -) 650 mg PO Q4H PRN PRN Reason: FEVER > 101 Last Admin: 08/24/16 21:51 Dose: 650 mg Anastrozole (Arimidex -) 1 mg PO DAILY [facility] Last Admin: 08/28/16 09:58 Dose: 1 mg Bacitracin (Bacitracin -) 1 applic TP DAILY [facility] Last Admin: 08/28/16 09:57 Dose: 1 applic Clonazepam (Klonopin -) 0.5 mg PO TID [facility] Last Admin: 08/28/16 07:00 Dose: 0.5 mg Clotrimazole (Lotrimin 1% Cream -) 1 applic TP BID [facility] Last Admin: 08/27/16 21:30 Dose: 1 applic Divalproex Sodium (Depakote -) 250 mg PO BID [facility] Last Admin: 08/27/16 23:42 Dose: 250 mg Donepezil HCl (Aricept -) 10 mg PO HS [facility] Last Admin: 08/27/16 23:42 Dose: 10 mg Escitalopram Oxalate (Lexapro -) 20 mg PO DAILY [facility] Last Admin: 08/28/16 09:56 Dose: 20 mg Furosemide (Lasix -) 20 mg PO DAILY [facility] Last Admin: 08/28/16 09:53 Dose: 20 mg Lisinopril (Prinivil) 2.5 mg PO DAILY [facility] Last Admin: 08/28/16 09:53 Dose: 2.5 mg Pantoprazole Sodium (Protonix -) 40 mg PO DAILY [facility] Last Admin: 08/28/16 09:55 Dose: 40 mg Polyethylene Glycol (Miralax (For Daily Use) -) 17 gm PO DAILY [facility] Last Admin: 08/28/16 09:56 Dose: 17 grams Ursodiol (Actigal -) 300 mg PO BID [facility] Last Admin: 08/28/16 09:53 Dose: 300 mg - Objective Vital Signs: Vital Signs Temperature 98.1 F 08/28/16 08:00 Pulse Rate 103 H 08/28/16 08:00 Respiratory Rate 18 08/28/16 08:00 Blood Pressure 127/78 08/28/16 08:00 O2 Sat by Pulse Oximetry (%) 93 L 08/27/16 21:00 Constitutional: Yes: No Distress Cardiovascular: Yes: Regular Rate and Rhythm Respiratory: Yes: Diminished Gastrointestinal: Yes: Normal Bowel Sounds, Soft, Tenderness (right upper quad) Edema: No Labs: CBC, BMP 08/26/16 05:35 08/27/16 05:35 INR, PTT INR 1.42 (0.82-1.09) H 08/20/16 16:59 Problem List - Problems (1) Atrial fibrillation Code(s): I48.91 - UNSPECIFIED ATRIAL FIBRILLATION Qualifiers: Atrial fibrillation type: persistent Qualified Code(s): I48.1 - Persistent atrial fibrillation (2) Coronary artery disease Code(s): I25.10 - ATHSCL HEART DISEASE OF [place] CORONARY ARTERY W/O ANG PCTRS Qualifiers: Coronary Disease-Associated Artery/Lesion type: [place] artery [place] vs. transplanted heart: [place] heart Associated angina: without angina Qualified Code(s): I25.10 - Atherosclerotic heart disease of [place] coronary artery without angina pectoris (3) Dementia Code(s): F03.90 - UNSPECIFIED DEMENTIA WITHOUT BEHAVIORAL DISTURBANCE Qualifiers: Dementia type: unspecified type Dementia behavioral disturbance: without behavioral disturbance Qualified Code(s): F03.90 - Unspecified dementia without behavioral disturbance (4) Cholecystitis Code(s): K81.9 - CHOLECYSTITIS, UNSPECIFIED Assessment/Plan PLAN Xarelto held on Lovenox sc BID On iv antibiotics and pain control MRCP -- CBD stones, cholangitis HIDA scan noted-- no cystic duct dilation LFT trending down spoke with Dr Catherine Pt had hypotensive episode during ERCP so was cancelled She will need to be evaluated by Anesthesiologist for surgery
[2016-08-28] MEDS: DIVALPROEX SODIUM 250 MG TABLET E.C. (FP) PO SCH (12:25)
[2016-08-28] MEDS: VALPROATE SODIUM 250 MG/5 ML UNIT DOSE CUP PO SCH ×2 (14:17→21:31)
[2016-08-28] MEDS: CLOTRIMAZOLE 1% CREAM 15 GM TUBE TP SCH ×2 (14:23→21:54)
--- NOTE | 2016-08-28 16:38 | PN ---
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, Physician - Current Medication List Current Medications: Active Medications Acetaminophen (Tylenol -) 650 mg PO Q4H PRN PRN Reason: FEVER > 101 Last Admin: 08/24/16 21:51 Dose: 650 mg Anastrozole (Arimidex -) 1 mg PO DAILY [facility] Last Admin: 08/28/16 09:58 Dose: 1 mg Bacitracin (Bacitracin -) 1 applic TP DAILY [facility] Last Admin: 08/28/16 09:57 Dose: 1 applic Clonazepam (Klonopin -) 0.5 mg PO TID [facility] Last Admin: 08/28/16 14:17 Dose: 0.5 mg Clotrimazole (Lotrimin 1% Cream -) 1 applic TP BID [facility] Last Admin: 08/28/16 14:23 Dose: 1 applic Donepezil HCl (Aricept -) 10 mg PO HS [facility] Last Admin: 08/27/16 23:42 Dose: 10 mg Escitalopram Oxalate (Lexapro -) 20 mg PO DAILY [facility] Last Admin: 08/28/16 09:56 Dose: 20 mg Furosemide (Lasix -) 20 mg PO DAILY [facility] Last Admin: 08/28/16 09:53 Dose: 20 mg Lisinopril (Prinivil) 2.5 mg PO DAILY [facility] Last Admin: 08/28/16 09:53 Dose: 2.5 mg Pantoprazole Sodium (Protonix -) 40 mg PO DAILY [facility] Last Admin: 08/28/16 09:55 Dose: 40 mg Polyethylene Glycol (Miralax (For Daily Use) -) 17 gm PO DAILY [facility] Last Admin: 08/28/16 09:56 Dose: 17 grams Ursodiol (Actigal -) 300 mg PO BID [facility] Last Admin: 08/28/16 09:53 Dose: 300 mg Valproate Sodium (Depakene -) 250 mg PO BID [facility] Last Admin: 08/28/16 14:17 Dose: 250 mg - Objective Vital Signs: Vital Signs Temperature 98.4 F 08/28/16 14:26 Pulse Rate 96 H 08/28/16 14:26 Respiratory Rate 18 08/28/16 14:26 Blood Pressure 127/78 08/28/16 14:26 O2 Sat by Pulse Oximetry (%) 95 08/28/16 09:00 Labs: CBC, BMP 08/26/16 05:35 08/27/16 05:35 INR, PTT INR 1.42 (0.82-1.09) H 08/20/16 16:59 Problem List - Problems (1) Cholelithiasis Code(s): K80.20 - CALCULUS OF GALLBLADDER W/O CHOLECYSTITIS W/O OBSTRUCTION Qualifiers: Cholelithiasis location: gallbladder and bile duct Biliary obstruction : with biliary obstruction (2) Abnormal liver function Code(s): K76.89 - OTHER SPECIFIED DISEASES OF LIVER (3) Dilated bile duct Code(s): K83.8 - OTHER SPECIFIED DISEASES OF BILIARY TRACT Assessment/Plan Patient is alert ,awake, responsive to verbal commands. Afebrile. No hypotension. Abdomen is soft, not tender. Patient may not be stable for procedures under sedation. If patient is optimised , and stable, can consider cholecystectomy with CBD exploration. Will need complete assessment by anesthesia, prior to any definitive invasive procedures. Continue antibiotics. Family aware of patients condition , and seriousness of biliary obstruction with sepsis.
[2016-08-28] MEDS: DONEPEZIL HCL 10 MG TABLET (FP) PO SCH (21:31)
[2016-08-29] MEDS: clonazePAM 0.5 MG TABLET PO SCH ×3 (06:13→21:39)
[2016-08-29] MEDS ORDERED: ESCITALOPRAM OXALATE 10 MG TABLET (FP) ONE (09:46)
[2016-08-29] MEDS ORDERED: PT OWN MED DRAWER 7, Y5N ONE (09:48)
[2016-08-29] MEDS: VALPROATE SODIUM 250 MG/5 ML UNIT DOSE CUP PO SCH ×2 (09:50→21:40)
[2016-08-29] MEDS: PANTOPRAZOLE 40 MG TABLET (FP) PO SCH (09:50)
[2016-08-29] MEDS: ESCITALOPRAM OXALATE 20 MG TABLET (FP) PO SCH (09:50)
[2016-08-29] MEDS: URSODIOL 300 MG CAPSULE PO SCH ×2 (09:52→21:40)
[2016-08-29] MEDS: FUROSEMIDE 20 MG TABLET (FP) PO SCH (09:52)
[2016-08-29] MEDS: POLYETHYLENE GLYCOL 3350 119 GM BTL PO SCH (09:53)
[2016-08-29] MEDS: LISINOPRIL 5 MG TABLET (FP) PO SCH (09:54)
[2016-08-29] MEDS: ANASTROZOLE 1 MG TABLET PO SCH (09:54)
[2016-08-29] MEDS: CLOTRIMAZOLE 1% CREAM 15 GM TUBE TP SCH ×2 (10:03→21:41)
[2016-08-29] MEDS: BACITRACIN 30 GM TUBE TOPICAL OINTMENT TP SCH (10:04)
[2016-08-29 11:25] LABS: ALBUMIN 2.4 g/dl (3.4-5.0); ANION GAP 8 (8-16); BILIRUBIN,TOTAL 0.5 mg/dL (0.2-1.0); CO2 29 mmol/L (21-32); CREATININE 0.6 mg/dL (0.55-1.02); GLUCOSE,RANDOM 96 mg/dL (74-106); SGOT/AST 33 U/L (15-37); SGPT/ALT 55 U/L (12-78)
[2016-08-29 11:26] LABS: ALK PHOS 194 U/L (45-117)
--- NOTE | 2016-08-29 12:51 | PN ---
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, Physician Chief Complaint: awake and no distress daughter at bedside wants to go home - Current Medication List Current Medications: Active Medications Acetaminophen (Tylenol -) 650 mg PO Q4H PRN PRN Reason: FEVER > 101 Last Admin: 08/24/16 21:51 Dose: 650 mg Anastrozole (Arimidex -) 1 mg PO DAILY [facility] Last Admin: 08/29/16 09:54 Dose: 1 mg Bacitracin (Bacitracin -) 1 applic TP DAILY [facility] Last Admin: 08/29/16 10:04 Dose: 1 applic Clonazepam (Klonopin -) 0.5 mg PO TID [facility] Last Admin: 08/29/16 06:13 Dose: 0.5 mg Clotrimazole (Lotrimin 1% Cream -) 1 applic TP BID [facility] Last Admin: 08/29/16 10:03 Dose: 1 applic Donepezil HCl (Aricept -) 10 mg PO HS [facility] Last Admin: 08/28/16 21:31 Dose: 10 mg Escitalopram Oxalate (Lexapro -) 20 mg PO DAILY [facility] Last Admin: 08/29/16 09:50 Dose: 20 mg Furosemide (Lasix -) 20 mg PO DAILY [facility] Last Admin: 08/29/16 09:52 Dose: 20 mg Lisinopril (Prinivil) 2.5 mg PO DAILY [facility] Last Admin: 08/29/16 09:54 Dose: 2.5 mg Pantoprazole Sodium (Protonix -) 40 mg PO DAILY [facility] Last Admin: 08/29/16 09:50 Dose: 40 mg Polyethylene Glycol (Miralax (For Daily Use) -) 17 gm PO DAILY [facility] Last Admin: 08/29/16 09:53 Dose: 17 grams Ursodiol (Actigal -) 300 mg PO BID [facility] Last Admin: 08/29/16 09:52 Dose: 300 mg Valproate Sodium (Depakene -) 250 mg PO BID [facility] Last Admin: 08/29/16 09:50 Dose: 250 mg - Objective Vital Signs: Vital Signs Temperature 97.6 F 08/29/16 08:00 Pulse Rate 92 H 08/29/16 08:00 Respiratory Rate 18 08/29/16 08:00 Blood Pressure 138/88 08/29/16 08:00 O2 Sat by Pulse Oximetry (%) 96 08/29/16 09:00 Constitutional: Yes: No Distress Cardiovascular: Yes: Pulse Irregular Respiratory: Yes: CTA Bilaterally Gastrointestinal: Yes: Normal Bowel Sounds, Soft, Tenderness (rt upper quad). No: Distention Edema: No Labs: CBC, BMP 08/26/16 05:35 08/29/16 10:15 INR, PTT INR 1.42 (0.82-1.09) H 08/20/16 16:59 Problem List - Problems (1) Atrial fibrillation Code(s): I48.91 - UNSPECIFIED ATRIAL FIBRILLATION Qualifiers: Atrial fibrillation type: persistent Qualified Code(s): I48.1 - Persistent atrial fibrillation (2) Coronary artery disease Code(s): I25.10 - ATHSCL HEART DISEASE OF [place] CORONARY ARTERY W/O ANG PCTRS Qualifiers: Coronary Disease-Associated Artery/Lesion type: [place] artery [place] vs. transplanted heart: [place] heart Associated angina: without angina Qualified Code(s): I25.10 - Atherosclerotic heart disease of [place] coronary artery without angina pectoris (3) Dementia Code(s): F03.90 - UNSPECIFIED DEMENTIA WITHOUT BEHAVIORAL DISTURBANCE Qualifiers: Dementia type: unspecified type Dementia behavioral disturbance: without behavioral disturbance Qualified Code(s): F03.90 - Unspecified dementia without behavioral disturbance (4) Cholecystitis Code(s): K81.9 - CHOLECYSTITIS, UNSPECIFIED Assessment/Plan PLAN Xaclementinato held on Lovenox sc BID On iv antibiotics and pain control She will need to be evaluated by Anesthesiologist for surgery - possibly Tuesday or Tuesday per Surgeon
[2016-08-29] MEDS: DONEPEZIL HCL 10 MG TABLET (FP) PO SCH (21:39)
[2016-08-30] MEDS: clonazePAM 0.5 MG TABLET PO SCH ×3 (06:26→22:19)
[2016-08-30 07:44] LABS: INR 1.14 (0.82-1.09); PROTHROMBIN TIME (PATIENT) 12.6 SEC (9.98-11.88)
--- NOTE | 2016-08-30 08:30 | PN ---
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 (short form) - Note 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: pt seen/ examined chart reviewed all f/u noted Cholecystectomy cancelled for today daughter at bedside pt denies pain. afebrile eating ok Vital Signs Temp 98.4 F 08/30/16 06:00 Pulse 112 H 08/30/16 06:00 Resp 18 08/30/16 06:00 BP 140/78 08/30/16 06:00 Pulse Ox 96 08/29/16 20:20 Intake & Output 08/29/16 08/29/16 08/30/16 11:59 23:59 11:59 Other: Voiding Method Incontinent Incontinent # Unmeasured Voids Hicks 3 1 2 Bowel Movement No Yes No Active Medications Acetaminophen (Tylenol -) 650 mg PO Q4H PRN PRN Reason: FEVER > 101 Last Admin: 08/24/16 21:51 Dose: 650 mg Anastrozole (Arimidex -) 1 mg PO DAILY [facility] Last Admin: 08/30/16 10:15 Dose: 1 mg Bacitracin (Bacitracin -) 1 applic TP DAILY [facility] Last Admin: 08/30/16 10:17 Dose: 1 applic Clonazepam (Klonopin -) 0.5 mg PO TID [facility] Last Admin: 08/30/16 06:26 Dose: Not Given Clotrimazole (Lotrimin 1% Cream -) 1 applic TP BID [facility] Last Admin: 08/30/16 10:33 Dose: 1 applic Donepezil HCl (Aricept -) 10 mg PO HS [facility] Last Admin: 08/29/16 21:39 Dose: 10 mg Escitalopram Oxalate (Lexapro -) 20 mg PO DAILY [facility] Last Admin: 08/30/16 10:16 Dose: 20 mg Furosemide (Lasix -) 20 mg PO DAILY [facility] Last Admin: 08/30/16 10:16 Dose: 20 mg Lisinopril (Prinivil) 2.5 mg PO DAILY [facility] Last Admin: 08/30/16 10:14 Dose: 2.5 mg Pantoprazole Sodium (Protonix -) 40 mg PO DAILY [facility] Last Admin: 08/30/16 10:16 Dose: 40 mg Polyethylene Glycol (Miralax (For Daily Use) -) 17 gm PO DAILY [facility] Last Admin: 08/30/16 10:17 Dose: 17 grams Ursodiol (Actigal -) 300 mg PO BID [facility] Last Admin: 08/30/16 10:16 Dose: 300 mg Valproate Sodium (Depakene -) 250 mg PO BID [facility] Last Admin: 08/30/16 10:16 Dose: 250 mg CBC,CMP WBC 8.0 K/mm3 (4.0-10.0) 08/30/16 05:40 RBC 3.46 M/mm3 (3.60-5.2) L 08/30/16 05:40 Hgb 11.2 GM/dL (10.7-15.3) 08/30/16 05:40 Hct 32.8 % (32.4-45.2) 08/30/16 05:40 MCV 94.8 fl (80-96) 08/30/16 05:40 MCHC 34.1 g/dl (32.0-36.0) 08/30/16 05:40 RDW 13.8 % (11.6-15.6) 08/30/16 05:40 Plt Count 433 K/MM3 (134-434) D 08/30/16 05:40 MPV 7.8 fl (7.5-11.1) 08/30/16 05:40 Neutrophils % 65.9 % (42.8-82.8) 08/30/16 05:40 Lymphocytes % 20.7 % (8-40) 08/30/16 05:40 Monocytes % 8.4 % (3.8-10.2) 08/30/16 05:40 Eosinophils % 4.3 % (0-4.5) 08/30/16 05:40 Basophils % 0.7 % (0-2.0) 08/30/16 05:40 Band Neutrophils 15.0 % (0-10) H 08/20/16 16:59 Differential Comment Manual diff done 08/20/16 16:59 Platelet Estimate Adequate (NORMAL) 08/20/16 16:59 Sodium 140 mmol/L (136-145) 08/30/16 06:05 Potassium 4.7 mmol/L (3.5-5.1) 08/30/16 06:05 Chloride 103 mmol/L (98-107) 08/30/16 06:05 Carbon Dioxide 28 mmol/L (21-32) 08/30/16 06:05 Anion Gap 9 (8-16) 08/30/16 06:05 BUN 23 mg/dL (7-18) H D 08/30/16 06:05 Creatinine 0.6 mg/dL (0.55-1.02) 08/30/16 06:05 Creat Clearance w eGFR > 60 (>60) 08/30/16 06:05 Random Glucose 81 mg/dL (74-106) 08/30/16 06:05 Lactic Acid 1.464 mmol/L (0.4-2.0) 08/20/16 20:00 Calcium 9.1 mg/dL (8.5-10.1) 08/30/16 06:05 Phosphorus 3.7 mg/dL (2.5-4.9) 08/20/16 16:59 Magnesium 1.8 mg/dL (1.8-2.4) 08/20/16 16:59 Total Bilirubin 0.6 mg/dL (0.2-1.0) 08/30/16 06:05 Direct Bilirubin 0.4 mg/dL (0.0-0.2) H 08/22/16 06:00 AST 31 U/L (15-37) 08/30/16 06:05 ALT 48 U/L (12-78) 08/30/16 06:05 Alkaline Phosphatase 178 U/L (45-117) H 08/30/16 06:05 Creatine Kinase 77 IU/L (26-192) 08/22/16 06:00 Troponin I 0.05 ng/ml (0.00-0.05) 08/22/16 06:00 B-Natriuretic Peptide 72849.99 pg/ml (5-450) H 08/20/16 16:59 Total Protein 6.0 g/dl (6.4-8.2) L 08/30/16 06:05 Albumin 2.5 g/dl (3.4-5.0) L 08/30/16 06:05 Total Amylase 55 U/L (25-115) 08/23/16 05:35 Lipase 167 U/L (73-393) 08/23/16 05:35 Physical Exam Constitutional: Yes: No Distress Cardiovascular: Yes: Pulse Irregular Respiratory: Yes: CTA Bilaterally Gastrointestinal: Yes: Normal Bowel Sounds, Soft, non tender . Edema: No Problem List - Problems (1) Atrial fibrillation Code(s): I48.91 - UNSPECIFIED ATRIAL FIBRILLATION Qualifiers: Atrial fibrillation type: persistent Qualified Code(s): I48.1 - Persistent atrial fibrillation (2) Coronary artery disease Code(s): I25.10 - ATHSCL HEART DISEASE OF [place] CORONARY ARTERY W/O ANG PCTRS Qualifiers: Coronary Disease-Associated Artery/Lesion type: [place] artery [place] vs. transplanted heart: [place] heart Associated angina: without angina Qualified Code(s): I25.10 - Atherosclerotic heart disease of [place] coronary artery without angina pectoris (3) Dementia Code(s): F03.90 - UNSPECIFIED DEMENTIA WITHOUT BEHAVIORAL DISTURBANCE Qualifiers: Dementia type: unspecified type Dementia behavioral disturbance: without behavioral disturbance Qualified Code(s): F03.90 - Unspecified dementia without behavioral disturbance (4) Cholecystitis Code(s): K81.9 - CHOLECYSTITIS, UNSPECIFIED Assessment/Plan clinically stable/ better Cholangitis resolved continue present care will discuss with Dr. Davidson and Will follow. Discussed with pts daughter also who is at bedside Problem List - Problems (1) Sepsis Code(s): A41.9 - SEPSIS, UNSPECIFIED ORGANISM Qualifiers: Qualified Code(s): A41.9 - Sepsis, unspecified organism
[2016-08-30 08:48] LABS: ALBUMIN 2.5 g/dl (3.4-5.0); ANION GAP 9 (8-16); CALCIUM 9.1 mg/dL (8.5-10.1); CO2 28 mmol/L (21-32); GLUCOSE,RANDOM 81 mg/dL (74-106)
[2016-08-30 08:53] LABS: ALK PHOS 178 U/L (45-117); BILIRUBIN,TOTAL 0.6 mg/dL (0.2-1.0); CREATININE 0.6 mg/dL (0.55-1.02); SGOT/AST 31 U/L (15-37); SGPT/ALT 48 U/L (12-78)
[2016-08-30 08:59] LABS: BASOPHIL 0.7 % (0-2.0); EOSINOPHIL 4.3 % (0-4.5); MCH 32.3 pg (25.7-33.7); MCHC 34.1 g/dl (32.0-36.0); MEAN CELL VOLUME 94.8 fl (80-96); MEAN PLT VOLUME 7.8 fl (7.5-11.1); NEUTROPHILS 65.9 % (42.8-82.8); PLATELET COUNT 433 K/MM3 (134-434); RDW 13.8 % (11.6-15.6)
[2016-08-30] MEDS ORDERED: PT OWN MED DRAWER 7, Y5N ONE (10:13)
[2016-08-30] MEDS: LISINOPRIL 5 MG TABLET (FP) PO SCH (10:14)
[2016-08-30] MEDS: ANASTROZOLE 1 MG TABLET PO SCH (10:15)
[2016-08-30] MEDS: VALPROATE SODIUM 250 MG/5 ML UNIT DOSE CUP PO SCH ×2 (10:16→22:19)
[2016-08-30] MEDS: PANTOPRAZOLE 40 MG TABLET (FP) PO SCH (10:16)
[2016-08-30] MEDS: ESCITALOPRAM OXALATE 20 MG TABLET (FP) PO SCH (10:16)
[2016-08-30] MEDS: FUROSEMIDE 20 MG TABLET (FP) PO SCH (10:16)
[2016-08-30] MEDS: URSODIOL 300 MG CAPSULE PO SCH ×2 (10:16→22:19)
[2016-08-30] MEDS: BACITRACIN 30 GM TUBE TOPICAL OINTMENT TP SCH (10:17)
[2016-08-30] MEDS: POLYETHYLENE GLYCOL 3350 119 GM BTL PO SCH (10:17)
[2016-08-30] MEDS: CLOTRIMAZOLE 1% CREAM 15 GM TUBE TP SCH ×2 (10:33→22:29)
--- NOTE | 2016-08-30 10:42 | PN ---
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, Physician History of Present Illness: Afebrile, episodes of rapid afib off lopressor, hemodynamics stable. Await cholecystectomy with CBD exploration, ERCP deferred. - Current Medication List Current Medications: Active Medications Acetaminophen (Tylenol -) 650 mg PO Q4H PRN PRN Reason: FEVER > 101 Last Admin: 08/24/16 21:51 Dose: 650 mg Anastrozole (Arimidex -) 1 mg PO DAILY [facility] Last Admin: 08/30/16 10:15 Dose: 1 mg Bacitracin (Bacitracin -) 1 applic TP DAILY [facility] Last Admin: 08/30/16 10:17 Dose: 1 applic Clonazepam (Klonopin -) 0.5 mg PO TID [facility] Last Admin: 08/30/16 06:26 Dose: Not Given Clotrimazole (Lotrimin 1% Cream -) 1 applic TP BID [facility] Last Admin: 08/30/16 10:33 Dose: 1 applic Donepezil HCl (Aricept -) 10 mg PO HS [facility] Last Admin: 08/29/16 21:39 Dose: 10 mg Escitalopram Oxalate (Lexapro -) 20 mg PO DAILY [facility] Last Admin: 08/30/16 10:16 Dose: 20 mg Furosemide (Lasix -) 20 mg PO DAILY [facility] Last Admin: 08/30/16 10:16 Dose: 20 mg Lisinopril (Prinivil) 2.5 mg PO DAILY [facility] Last Admin: 08/30/16 10:14 Dose: 2.5 mg Pantoprazole Sodium (Protonix -) 40 mg PO DAILY [facility] Last Admin: 08/30/16 10:16 Dose: 40 mg Polyethylene Glycol (Miralax (For Daily Use) -) 17 gm PO DAILY [facility] Last Admin: 08/30/16 10:17 Dose: 17 grams Ursodiol (Actigal -) 300 mg PO BID [facility] Last Admin: 08/30/16 10:16 Dose: 300 mg Valproate Sodium (Depakene -) 250 mg PO BID [facility] Last Admin: 08/30/16 10:16 Dose: 250 mg - Objective Vital Signs: Vital Signs Temperature 98.4 F 08/30/16 06:00 Pulse Rate 112 H 08/30/16 06:00 Respiratory Rate 18 08/30/16 06:00 Blood Pressure 140/78 08/30/16 06:00 O2 Sat by Pulse Oximetry (%) 96 08/29/16 20:20 Constitutional: Yes: No Distress, Calm Neck: Yes: Supple Cardiovascular: Yes: Tachycardia, Pulse Irregular, Murmur (2/6 SM) Respiratory: Yes: Regular, Diminished Gastrointestinal: Yes: Soft, Hypoactive Bowel Sounds Edema: No Labs: CBC, BMP 08/30/16 05:40 08/30/16 06:05 INR, PTT INR 1.14 (0.82-1.09) 08/30/16 06:05 Problem List - Problems (1) Sepsis Code(s): A41.9 - SEPSIS, UNSPECIFIED ORGANISM Qualifiers: Sepsis type: sepsis due to unspecified organism Qualified Code(s): A41.9 - Sepsis, unspecified organism (2) Atrial fibrillation Code(s): I48.91 - UNSPECIFIED ATRIAL FIBRILLATION Qualifiers: Atrial fibrillation type: persistent Qualified Code(s): I48.1 - Persistent atrial fibrillation (3) Diastolic dysfunction Code(s): I51.9 - HEART DISEASE, UNSPECIFIED (4) Hyperlipidemia Code(s): E78.5 - HYPERLIPIDEMIA, UNSPECIFIED Qualifiers: Hyperlipidemia type: pure hypercholesterolemia Qualified Code(s): E78.0 - Pure hypercholesterolemia (5) Dementia Code(s): F03.90 - UNSPECIFIED DEMENTIA WITHOUT BEHAVIORAL DISTURBANCE Qualifiers: Dementia type: unspecified type Dementia behavioral disturbance: without behavioral disturbance Qualified Code(s): F03.90 - Unspecified dementia without behavioral disturbance (6) Demand ischemia Code(s): I24.8 - OTHER FORMS OF ACUTE ISCHEMIC HEART DISEASE (7) Coronary artery disease Code(s): I25.10 - ATHSCL HEART DISEASE OF [place] CORONARY ARTERY W/O ANG PCTRS Qualifiers: Coronary Disease-Associated Artery/Lesion type: [place] artery [place] vs. transplanted heart: [place] heart Associated angina: without angina Qualified Code(s): I25.10 - Atherosclerotic heart disease of [place] coronary artery without angina pectoris (8) Anticoagulation adequate with anticoagulant therapy Code(s): Z79.01 - [facility]FP (CURRENT) USE OF ANTICOAGULANTS (9) Abnormal liver enzymes Code(s): R74.8 - ABNORMAL LEVELS OF OTHER SERUM ENZYMES (10) Choledocholithiasis Code(s): K80.50 - CALCULUS OF BILE DUCT W/O CHOLANGITIS OR CHOLECYST W/O OBST Assessment/Plan Echo 08/23/2016 Echo: Normal LV size and fxn, mild AR, MR 1. Toxic metabolic encephelopathy referable to sepsis with underlying dementia improving 2. Leukocytosis, demand ischemia, elevated LFT c/w acute cholecystitis/ cholangitis with choledocholithiasis on MRCP improving 3. Persistent afib with tachy-sharon episodes off NOAC and Lovenox silke-procedure 4. CAD demand ischemia referable to #1 5. Diastolic dysfxn with elevated biomarkers 6. Hyperlipidemia 7. H/o breast ca P:1. Completed abx course, await cholecystectomy with CBD exploration 2. Resume Lopressor 25 bid, lisinopril 2.5 qd, Lasix 20 qd in AM, Lipitor held pending LFT normalization, Actigall started 3. DVT and GI prophylaxis 4. D/w daughter, may require single chamber pacer if AV deandre agents are to be uptitrated for rate-control, will monitor for now
[2016-08-30] MEDS: METOPROLOL TARTRATE 25 MG TABLET (FP) PO SCH ×2 (11:48→22:23)
[2016-08-30] MEDS: DONEPEZIL HCL 10 MG TABLET (FP) PO SCH (22:19)
[2016-08-31] MEDS: clonazePAM 0.5 MG TABLET PO SCH ×3 (05:50→21:55)
[2016-08-31] MEDS: FUROSEMIDE 20 MG TABLET (FP) PO SCH (10:00)
[2016-08-31] MEDS: ESCITALOPRAM OXALATE 20 MG TABLET (FP) PO SCH (10:00)
[2016-08-31] MEDS: POLYETHYLENE GLYCOL 3350 119 GM BTL PO SCH (10:00)
[2016-08-31] MEDS: METOPROLOL TARTRATE 25 MG TABLET (FP) PO SCH ×2 (10:00→21:56)
[2016-08-31] MEDS: LISINOPRIL 5 MG TABLET (FP) PO SCH (10:00)
[2016-08-31] MEDS: URSODIOL 300 MG CAPSULE PO SCH ×2 (10:00→21:57)
[2016-08-31] MEDS: PANTOPRAZOLE 40 MG TABLET (FP) PO SCH (10:00)
[2016-08-31] MEDS: VALPROATE SODIUM 250 MG/5 ML UNIT DOSE CUP PO SCH ×2 (10:00→21:57)
--- NOTE | 2016-08-31 10:23 | PN ---
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, Physician Chief Complaint: awake and no distress son at bedside - Current Medication List Current Medications: Active Medications Acetaminophen (Tylenol -) 650 mg PO Q4H PRN PRN Reason: FEVER > 101 Last Admin: 08/24/16 21:51 Dose: 650 mg Anastrozole (Arimidex -) 1 mg PO DAILY [facility] Last Admin: 08/30/16 10:15 Dose: 1 mg Bacitracin (Bacitracin -) 1 applic TP DAILY [facility] Last Admin: 08/30/16 10:17 Dose: 1 applic Clonazepam (Klonopin -) 0.5 mg PO TID [facility] Last Admin: 08/31/16 05:50 Dose: Not Given Clotrimazole (Lotrimin 1% Cream -) 1 applic TP BID [facility] Last Admin: 08/30/16 22:29 Dose: 1 applic Donepezil HCl (Aricept -) 10 mg PO HS [facility] Last Admin: 08/30/16 22:19 Dose: 10 mg Escitalopram Oxalate (Lexapro -) 20 mg PO DAILY [facility] Last Admin: 08/30/16 10:16 Dose: 20 mg Furosemide (Lasix -) 20 mg PO DAILY [facility] Last Admin: 08/30/16 10:16 Dose: 20 mg Lisinopril (Prinivil) 2.5 mg PO DAILY [facility] Last Admin: 08/30/16 10:14 Dose: 2.5 mg Metoprolol Tartrate (Lopressor -) 25 mg PO BID [facility] Last Admin: 08/30/16 22:23 Dose: 25 mg Pantoprazole Sodium (Protonix -) 40 mg PO DAILY [facility] Last Admin: 08/30/16 10:16 Dose: 40 mg Polyethylene Glycol (Miralax (For Daily Use) -) 17 gm PO DAILY [facility] Last Admin: 08/30/16 10:17 Dose: 17 grams Ursodiol (Actigal -) 300 mg PO BID [facility] Last Admin: 08/30/16 22:19 Dose: 300 mg Valproate Sodium (Depakene -) 250 mg PO BID [facility] Last Admin: 08/30/16 22:19 Dose: 250 mg - Objective Vital Signs: Vital Signs Temperature 99.2 F 08/31/16 06:29 Pulse Rate 95 H 08/31/16 06:29 Respiratory Rate 20 08/31/16 06:29 Blood Pressure 119/79 08/31/16 06:29 O2 Sat by Pulse Oximetry (%) 95 08/30/16 21:00 Constitutional: Yes: No Distress Cardiovascular: Yes: Pulse Irregular Respiratory: Yes: Diminished Gastrointestinal: Yes: Normal Bowel Sounds, Soft, Tenderness (right upper quadrant). No: Distention Edema: No Psychiatric: Yes: Alert Labs: CBC, BMP 08/30/16 05:40 08/30/16 06:05 INR, PTT INR 1.14 (0.82-1.09) 08/30/16 06:05 Problem List - Problems (1) Atrial fibrillation Code(s): I48.91 - UNSPECIFIED ATRIAL FIBRILLATION Qualifiers: Atrial fibrillation type: persistent Qualified Code(s): I48.1 - Persistent atrial fibrillation (2) Coronary artery disease Code(s): I25.10 - ATHSCL HEART DISEASE OF [place] CORONARY ARTERY W/O ANG PCTRS Qualifiers: Coronary Disease-Associated Artery/Lesion type: [place] artery [place] vs. transplanted heart: [place] heart Associated angina: without angina Qualified Code(s): I25.10 - Atherosclerotic heart disease of [place] coronary artery without angina pectoris (3) Dementia Code(s): F03.90 - UNSPECIFIED DEMENTIA WITHOUT BEHAVIORAL DISTURBANCE Qualifiers: Dementia type: unspecified type Dementia behavioral disturbance: without behavioral disturbance Qualified Code(s): F03.90 - Unspecified dementia without behavioral disturbance (4) Cholecystitis Code(s): K81.9 - CHOLECYSTITIS, UNSPECIFIED Assessment/Plan PLAN Xarelto held completed iv antibiotics keep NPO pain control IV fluids has a meeting with son , surgeon , nurse medical and health services manager about pt's case-- as per Surgeon , pt still has high risk for cholangitis and shoud have cholecystectomy with CBD exploration and T tube placement for the stone I spoke with Dr mcduffie afterwards-- told him about Dr preciado's recommendation-- He has agreed to go ahead for ERCP- he will attempt again. Pt has not had an episode of hypotension after the first ERCP. Her vitals are stable, labs are better. She was evaluated by Anesthesiologist on 08/29/16-- who has agreed for Cholecystectomy under [place] She is optimized medically at this time for ERCP today May resume PM dose of Lovenox after if ok with GI. Pt will be transferred to ICU after ERCP per Surgeon .
--- NOTE | 2016-08-31 10:24 | PN ---
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, Physician - Current Medication List Current Medications: Active Medications Acetaminophen (Tylenol -) 650 mg PO Q4H PRN PRN Reason: FEVER > 101 Last Admin: 08/24/16 21:51 Dose: 650 mg Anastrozole (Arimidex -) 1 mg PO DAILY [facility] Last Admin: 08/30/16 10:15 Dose: 1 mg Bacitracin (Bacitracin -) 1 applic TP DAILY [facility] Last Admin: 08/30/16 10:17 Dose: 1 applic Clonazepam (Klonopin -) 0.5 mg PO TID [facility] Last Admin: 08/31/16 05:50 Dose: Not Given Clotrimazole (Lotrimin 1% Cream -) 1 applic TP BID [facility] Last Admin: 08/30/16 22:29 Dose: 1 applic Donepezil HCl (Aricept -) 10 mg PO HS [facility] Last Admin: 08/30/16 22:19 Dose: 10 mg Escitalopram Oxalate (Lexapro -) 20 mg PO DAILY [facility] Last Admin: 08/30/16 10:16 Dose: 20 mg Furosemide (Lasix -) 20 mg PO DAILY [facility] Last Admin: 08/30/16 10:16 Dose: 20 mg Lisinopril (Prinivil) 2.5 mg PO DAILY [facility] Last Admin: 08/30/16 10:14 Dose: 2.5 mg Metoprolol Tartrate (Lopressor -) 25 mg PO BID [facility] Last Admin: 08/30/16 22:23 Dose: 25 mg Pantoprazole Sodium (Protonix -) 40 mg PO DAILY [facility] Last Admin: 08/30/16 10:16 Dose: 40 mg Polyethylene Glycol (Miralax (For Daily Use) -) 17 gm PO DAILY [facility] Last Admin: 08/30/16 10:17 Dose: 17 grams Ursodiol (Actigal -) 300 mg PO BID [facility] Last Admin: 08/30/16 22:19 Dose: 300 mg Valproate Sodium (Depakene -) 250 mg PO BID [facility] Last Admin: 08/30/16 22:19 Dose: 250 mg - Objective Vital Signs: Vital Signs Temperature 99.2 F 08/31/16 06:29 Pulse Rate 95 H 08/31/16 06:29 Respiratory Rate 20 08/31/16 06:29 Blood Pressure 119/79 08/31/16 06:29 O2 Sat by Pulse Oximetry (%) 95 08/30/16 21:00 Labs: CBC, BMP 08/30/16 05:40 08/30/16 06:05 INR, PTT INR 1.14 (0.82-1.09) 08/30/16 06:05 Problem List - Problems (1) Cholelithiasis Code(s): K80.20 - CALCULUS OF GALLBLADDER W/O CHOLECYSTITIS W/O OBSTRUCTION Qualifiers: Cholelithiasis location: gallbladder and bile duct Biliary obstruction : with biliary obstruction (2) Abnormal liver function Code(s): K76.89 - OTHER SPECIFIED DISEASES OF LIVER (3) Dilated bile duct Code(s): K83.8 - OTHER SPECIFIED DISEASES OF BILIARY TRACT Assessment/Plan Surgery: Patient is afebrile, No episode of hypotension since 08/27/2016. Abdomen tender in right upper quadrant. I have discussed with the family , the nursing staff , Dr Dooley. I have explained the risk of cholangitis, with common bile duct stones and biliary obstruction. Therapeutic alternative of ERCP followed by , cholecystectomy, or cholecystectomy with common bile duct exploration explained. Risks, benefits and complications and alternatives were explained. G.I to revisit ERCP. May need ICU monitoring.
[2016-08-31] MEDS ORDERED: PROMETHAZINE HCL 25 MG/1 ML VIAL IVPUSH PRN (11:38)
[2016-08-31] MEDS ORDERED: ONDANSETRON 4 MG/2 ML VIAL IVPUSH PRN (11:38)
[2016-08-31] MEDS ORDERED: INDOMETHACIN 50 MG RECTAL SUPPOSITORY PR ONE (11:40)
[2016-08-31] MEDS ORDERED: GLUCAGON 1 MG KIT ONE (11:42)
[2016-08-31] MEDS ORDERED: ETOMIDATE 20 MG/10 ML AMPUL IVPUSH ONE (11:42)
[2016-08-31] MEDS ORDERED: NEOSTIGMINE METHYLSULFATE 0.5 MG/ML - 10 ML MDV ONE (11:42)
[2016-08-31] MEDS ORDERED: LIDOCAINE HCL/PF 1% SDV 5ML VIAL ONE (11:42)
[2016-08-31] MEDS ORDERED: GLYCOPYRROLATE 0.2 MG/1 ML VIAL ONE ×3 (11:42)
[2016-08-31] MEDS ORDERED: ROCURONIUM BROMIDE 50 MG/5 ML VIAL ONE (11:42)
[2016-08-31] MEDS ORDERED: LEVOFLOXACIN 500 MG IVPB 100 ML IVPB ONE (11:43)
[2016-08-31] MEDS ORDERED: LACTATED RINGERS SOLUTION 1,000 ML IV SCH (11:45)
[2016-08-31] MEDS ORDERED: DEXAMETHASONE SOD PHOSPHATE 10 MG/1 ML VIAL ONE (12:06)
[2016-08-31] MEDS ORDERED: METOPROLOL TARTRATE 5 MG/5 ML VIAL ONE (13:23)
[2016-08-31] MEDS: ANASTROZOLE 1 MG TABLET PO SCH (15:59)
[2016-08-31] MEDS: DEXTROSE 5%-NORMAL SALINE 1,000 ML IV SCH (16:23)
[2016-08-31] MEDS: CLOTRIMAZOLE 1% CREAM 15 GM TUBE TP SCH ×2 (16:24→21:58)
[2016-08-31] MEDS: BACITRACIN 30 GM TUBE TOPICAL OINTMENT TP SCH (16:25)
[2016-08-31] MEDS: METOCLOPRAMIDE HCL INJECTION 10 MG/2 ML VIAL IVPB SCH ×2 (16:25→19:30)
[2016-08-31] MEDS: DONEPEZIL HCL 10 MG TABLET (FP) PO SCH (21:56)
[2016-09-01] MEDS: METOCLOPRAMIDE HCL INJECTION 10 MG/2 ML VIAL IVPB SCH ×3 (01:34→18:09)
[2016-09-01] MEDS: clonazePAM 0.5 MG TABLET PO SCH ×3 (06:42→22:08)
--- NOTE | 2016-09-01 08:17 | PN ---
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, Physician - Current Medication List Current Medications: Active Medications Acetaminophen (Tylenol -) 650 mg PO Q4H PRN PRN Reason: FEVER > 101 Last Admin: 08/24/16 21:51 Dose: 650 mg Anastrozole (Arimidex -) 1 mg PO DAILY [facility] Last Admin: 08/31/16 15:59 Dose: Not Given Bacitracin (Bacitracin -) 1 applic TP DAILY [facility] Last Admin: 08/31/16 16:25 Dose: 1 applic Clonazepam (Klonopin -) 0.5 mg PO TID [facility] Last Admin: 09/01/16 06:42 Dose: 0.5 mg Clotrimazole (Lotrimin 1% Cream -) 1 applic TP BID [facility] Last Admin: 08/31/16 21:58 Dose: 1 applic Donepezil HCl (Aricept -) 10 mg PO HS [facility] Last Admin: 08/31/16 21:56 Dose: 10 mg Escitalopram Oxalate (Lexapro -) 20 mg PO DAILY [facility] Last Admin: 08/31/16 10:00 Dose: Not Given Fentanyl (Sublimaze Injection -) 50 mcg IVPUSH [id number] PRN PRN Reason: PAIN Stop: 09/03/16 11:39 Furosemide (Lasix -) 20 mg PO DAILY [facility] Last Admin: 08/31/16 10:00 Dose: Not Given Dextrose/Sodium Chloride (D5-Ns -) 1,000 mls @ 60 mls/hr IV ASDIR [facility] Last Admin: 08/31/16 16:23 Dose: 60 mls/hr Lactated Ringer's (Lactated Ringers Solution) 1,000 mls @ 125 mls/hr IV ASDIR [facility] Last Admin: 08/31/16 16:06 Dose: Not Given Levofloxacin (Levaquin 500 Mg Premixed Ivpb -) 100 mls @ 100 mls/hr IVPB DAILY [facility] Lisinopril (Prinivil) 2.5 mg PO DAILY [facility] Last Admin: 08/31/16 10:00 Dose: Not Given Metoclopramide HCl (Reglan Injection -) 10 mg IVPB Q8H-IV [facility] Last Admin: 09/01/16 01:34 Dose: 10 mg Metoprolol Tartrate (Lopressor -) 25 mg PO BID [facility] Last Admin: 08/31/16 21:56 Dose: 25 mg Pantoprazole Sodium (Protonix -) 40 mg PO DAILY [facility] Last Admin: 08/31/16 10:00 Dose: Not Given Polyethylene Glycol (Miralax (For Daily Use) -) 17 gm PO DAILY [facility] Last Admin: 08/31/16 10:00 Dose: Not Given Ursodiol (Actigal -) 300 mg PO BID [facility] Last Admin: 08/31/16 21:57 Dose: 300 mg Valproate Sodium (Depakene -) 250 mg PO BID [facility] Last Admin: 08/31/16 21:57 Dose: 250 mg - Objective Vital Signs: Vital Signs Temperature 97.5 F L 09/01/16 06:26 Pulse Rate 89 09/01/16 06:26 Respiratory Rate 20 09/01/16 06:26 Blood Pressure 123/70 09/01/16 06:26 O2 Sat by Pulse Oximetry (%) 97 08/31/16 21:00 Labs: CBC, BMP 08/30/16 05:40 08/30/16 06:05 INR, PTT INR 1.14 (0.82-1.09) 08/30/16 06:05 Problem List - Problems (1) Cholelithiasis Code(s): K80.20 - CALCULUS OF GALLBLADDER W/O CHOLECYSTITIS W/O OBSTRUCTION Qualifiers: Cholelithiasis location: gallbladder and bile duct Biliary obstruction : with biliary obstruction (2) Abnormal liver function Code(s): K76.89 - OTHER SPECIFIED DISEASES OF LIVER (3) Dilated bile duct Code(s): K83.8 - OTHER SPECIFIED DISEASES OF BILIARY TRACT Assessment/Plan Patient is s/p ERCP, extraction of CBD stones and placement of stent. Abdomen is soft , not tender. Will follow blood work. Amylase and lipase is pending. Plan : Laparoscopic cholecystectomy on 09/03/2016. Continue antibiotics. Patient and family are aware of the management plan. Albumin is low. LFTs ahave improved except for alkaline phosphatase.
[2016-09-01] MEDS: DEXTROSE 5%-NORMAL SALINE 1,000 ML IV SCH ×2 (08:52→11:01)
--- NOTE | 2016-09-01 09:14 | PN ---
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, Physician Chief Complaint: s/p ERCP under general anesthesia History of Present Illness: post op day one - Current Medication List Current Medications: Active Medications Acetaminophen (Tylenol -) 650 mg PO Q4H PRN PRN Reason: FEVER > 101 Last Admin: 08/24/16 21:51 Dose: 650 mg Anastrozole (Arimidex -) 1 mg PO DAILY [facility] Last Admin: 08/31/16 15:59 Dose: Not Given Bacitracin (Bacitracin -) 1 applic TP DAILY [facility] Last Admin: 08/31/16 16:25 Dose: 1 applic Clonazepam (Klonopin -) 0.5 mg PO TID [facility] Last Admin: 09/01/16 06:42 Dose: 0.5 mg Clotrimazole (Lotrimin 1% Cream -) 1 applic TP BID [facility] Last Admin: 08/31/16 21:58 Dose: 1 applic Donepezil HCl (Aricept -) 10 mg PO HS [facility] Last Admin: 08/31/16 21:56 Dose: 10 mg Escitalopram Oxalate (Lexapro -) 20 mg PO DAILY [facility] Last Admin: 08/31/16 10:00 Dose: Not Given Fentanyl (Sublimaze Injection -) 50 mcg IVPUSH [id number] PRN PRN Reason: PAIN Stop: 09/03/16 11:39 Furosemide (Lasix -) 20 mg PO DAILY [facility] Last Admin: 08/31/16 10:00 Dose: Not Given Dextrose/Sodium Chloride (D5-Ns -) 1,000 mls @ 60 mls/hr IV ASDIR [facility] Last Admin: 09/01/16 08:52 Dose: 60 mls/hr Lactated Ringer's (Lactated Ringers Solution) 1,000 mls @ 125 mls/hr IV ASDIR [facility] Last Admin: 08/31/16 16:06 Dose: Not Given Levofloxacin (Levaquin 500 Mg Premixed Ivpb -) 100 mls @ 100 mls/hr IVPB DAILY [facility] Lisinopril (Prinivil) 2.5 mg PO DAILY [facility] Last Admin: 08/31/16 10:00 Dose: Not Given Metoclopramide HCl (Reglan Injection -) 10 mg IVPB Q8H-IV [facility] Last Admin: 09/01/16 01:34 Dose: 10 mg Metoprolol Tartrate (Lopressor -) 25 mg PO BID [facility] Last Admin: 08/31/16 21:56 Dose: 25 mg Pantoprazole Sodium (Protonix -) 40 mg PO DAILY [facility] Last Admin: 08/31/16 10:00 Dose: Not Given Polyethylene Glycol (Miralax (For Daily Use) -) 17 gm PO DAILY [facility] Last Admin: 08/31/16 10:00 Dose: Not Given Ursodiol (Actigal -) 300 mg PO BID [facility] Last Admin: 08/31/16 21:57 Dose: 300 mg Valproate Sodium (Depakene -) 250 mg PO BID [facility] Last Admin: 08/31/16 21:57 Dose: 250 mg - Objective Vital Signs: Vital Signs Temperature 97.5 F L 09/01/16 06:26 Pulse Rate 89 09/01/16 06:26 Respiratory Rate 20 09/01/16 06:26 Blood Pressure 123/70 09/01/16 06:26 O2 Sat by Pulse Oximetry (%) 97 08/31/16 21:00 Constitutional: Yes: Well Nourished Cardiovascular: Yes: WNL Respiratory: Yes: WNL Gastrointestinal: Yes: WNL Labs: CBC, BMP 08/30/16 05:40 08/30/16 06:05 INR, PTT INR 1.14 (0.82-1.09) 08/30/16 06:05 Assessment/Plan No adverse effect of anesthetic, pain controlled, patient will go to OR for cholecystectomy on Tuesday, dept of anesthesia will sign off care until that time.
[2016-09-01] MEDS ORDERED: ESCITALOPRAM OXALATE 10 MG TABLET (FP) ONE (10:31)
[2016-09-01] MEDS ORDERED: PT OWN MED DRAWER 7, Y5N ONE (10:33)
[2016-09-01] MEDS: LEVOFLOXACIN 500 MG IVPB 100 ML IVPB SCH (10:56)
[2016-09-01] MEDS: METOPROLOL TARTRATE 25 MG TABLET (FP) PO SCH ×2 (10:56→22:08)
[2016-09-01] MEDS: PANTOPRAZOLE 40 MG TABLET (FP) PO SCH (10:56)
[2016-09-01] MEDS: URSODIOL 300 MG CAPSULE PO SCH ×2 (10:57→22:08)
[2016-09-01] MEDS: ESCITALOPRAM OXALATE 20 MG TABLET (FP) PO SCH (10:57)
[2016-09-01] MEDS: ANASTROZOLE 1 MG TABLET PO SCH (10:58)
[2016-09-01] MEDS: BACITRACIN 30 GM TUBE TOPICAL OINTMENT TP SCH (10:58)
[2016-09-01] MEDS: VALPROATE SODIUM 250 MG/5 ML UNIT DOSE CUP PO SCH ×2 (10:58→22:08)
[2016-09-01] MEDS: CLOTRIMAZOLE 1% CREAM 15 GM TUBE TP SCH ×2 (10:59→22:16)
[2016-09-01] MEDS: POLYETHYLENE GLYCOL 3350 119 GM BTL PO SCH (11:00)
[2016-09-01] MEDS: LISINOPRIL 5 MG TABLET (FP) PO SCH (11:00)
[2016-09-01 11:15] LABS: AMYLASE 72 U/L (25-115)
[2016-09-01] MEDS: FUROSEMIDE 20 MG TABLET (FP) PO SCH (11:27)
--- NOTE | 2016-09-01 13:15 | PN ---
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, Physician Chief Complaint: s/p ERCP. Stone removal and placement of stent daughter at bedside Pt is hungry afebrile no distress - Current Medication List Current Medications: Active Medications Acetaminophen (Tylenol -) 650 mg PO Q4H PRN PRN Reason: FEVER > 101 Last Admin: 08/24/16 21:51 Dose: 650 mg Anastrozole (Arimidex -) 1 mg PO DAILY [facility] Last Admin: 09/01/16 10:58 Dose: 1 mg Bacitracin (Bacitracin -) 1 applic TP DAILY [facility] Last Admin: 09/01/16 10:58 Dose: 1 applic Clonazepam (Klonopin -) 0.5 mg PO TID [facility] Last Admin: 09/01/16 06:42 Dose: 0.5 mg Clotrimazole (Lotrimin 1% Cream -) 1 applic TP BID [facility] Last Admin: 09/01/16 10:59 Dose: 1 applic Donepezil HCl (Aricept -) 10 mg PO HS [facility] Last Admin: 08/31/16 21:56 Dose: 10 mg Escitalopram Oxalate (Lexapro -) 20 mg PO DAILY [facility] Last Admin: 09/01/16 10:57 Dose: 20 mg Fentanyl (Sublimaze Injection -) 50 mcg IVPUSH [id number] PRN PRN Reason: PAIN Stop: 09/03/16 11:39 Furosemide (Lasix -) 20 mg PO DAILY [facility] Last Admin: 09/01/16 11:27 Dose: 20 mg Dextrose/Sodium Chloride (D5-Ns -) 1,000 mls @ 60 mls/hr IV ASDIR [facility] Last Admin: 09/01/16 11:01 Dose: Not Given Lactated Ringer's (Lactated Ringers Solution) 1,000 mls @ 125 mls/hr IV ASDIR [facility] Last Admin: 08/31/16 16:06 Dose: Not Given Levofloxacin (Levaquin 500 Mg Premixed Ivpb -) 100 mls @ 100 mls/hr IVPB DAILY [facility] Last Admin: 09/01/16 10:56 Dose: 100 mls/hr Lisinopril (Prinivil) 2.5 mg PO DAILY [facility] Last Admin: 09/01/16 11:00 Dose: 2.5 mg Metoclopramide HCl (Reglan Injection -) 10 mg IVPB Q8H-IV [facility] Last Admin: 09/01/16 11:01 Dose: 10 mg Metoprolol Tartrate (Lopressor -) 25 mg PO BID [facility] Last Admin: 09/01/16 10:56 Dose: 25 mg Pantoprazole Sodium (Protonix -) 40 mg PO DAILY [facility] Last Admin: 09/01/16 10:56 Dose: 40 mg Polyethylene Glycol (Miralax (For Daily Use) -) 17 gm PO DAILY [facility] Last Admin: 09/01/16 11:00 Dose: 17 grams Ursodiol (Actigal -) 300 mg PO BID [facility] Last Admin: 09/01/16 10:57 Dose: 300 mg Valproate Sodium (Depakene -) 250 mg PO BID [facility] Last Admin: 09/01/16 10:58 Dose: 250 mg - Objective Vital Signs: Vital Signs Temperature 97.5 F L 09/01/16 06:26 Pulse Rate 89 09/01/16 06:26 Respiratory Rate 20 09/01/16 06:26 Blood Pressure 123/70 09/01/16 06:26 O2 Sat by Pulse Oximetry (%) 97 08/31/16 21:00 Constitutional: Yes: No Distress Cardiovascular: Yes: Pulse Irregular Respiratory: Yes: CTA Bilaterally Gastrointestinal: Yes: Normal Bowel Sounds, Soft. No: Distention, Tenderness Edema: No Labs: CBC, BMP 08/30/16 05:40 08/30/16 06:05 INR, PTT INR 1.14 (0.82-1.09) 08/30/16 06:05 Problem List - Problems (1) Atrial fibrillation Code(s): I48.91 - UNSPECIFIED ATRIAL FIBRILLATION Qualifiers: Atrial fibrillation type: persistent Qualified Code(s): I48.1 - Persistent atrial fibrillation (2) Coronary artery disease Code(s): I25.10 - ATHSCL HEART DISEASE OF [place] CORONARY ARTERY W/O ANG PCTRS Qualifiers: Coronary Disease-Associated Artery/Lesion type: [place] artery [place] vs. transplanted heart: [place] heart Associated angina: without angina Qualified Code(s): I25.10 - Atherosclerotic heart disease of [place] coronary artery without angina pectoris (3) Dementia Code(s): F03.90 - UNSPECIFIED DEMENTIA WITHOUT BEHAVIORAL DISTURBANCE Qualifiers: Dementia type: unspecified type Dementia behavioral disturbance: without behavioral disturbance Qualified Code(s): F03.90 - Unspecified dementia without behavioral disturbance (4) Cholecystitis Code(s): K81.9 - CHOLECYSTITIS, UNSPECIFIED Assessment/Plan PLAN Xarelto held Lovenox on hold as per my conversation with Dr Davidson yesterday completed iv antibiotics may restart diet pain control IV fluids-- decrease For lap celeste on Tuesday check bladder scan as pt's diaper not very heavy
--- NOTE | 2016-09-01 15:50 | PN ---
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, Physician History of Present Illness: Afebrile, post ERCP, await cholecystectomy Tuesday. - Current Medication List Current Medications: Active Medications Acetaminophen (Tylenol -) 650 mg PO Q4H PRN PRN Reason: FEVER > 101 Last Admin: 08/24/16 21:51 Dose: 650 mg Anastrozole (Arimidex -) 1 mg PO DAILY [facility] Last Admin: 09/01/16 10:58 Dose: 1 mg Bacitracin (Bacitracin -) 1 applic TP DAILY [facility] Last Admin: 09/01/16 10:58 Dose: 1 applic Clonazepam (Klonopin -) 0.5 mg PO TID [facility] Last Admin: 09/01/16 15:03 Dose: 0.5 mg Clotrimazole (Lotrimin 1% Cream -) 1 applic TP BID [facility] Last Admin: 09/01/16 10:59 Dose: 1 applic Donepezil HCl (Aricept -) 10 mg PO HS [facility] Last Admin: 08/31/16 21:56 Dose: 10 mg Escitalopram Oxalate (Lexapro -) 20 mg PO DAILY [facility] Last Admin: 09/01/16 10:57 Dose: 20 mg Fentanyl (Sublimaze Injection -) 50 mcg IVPUSH [id number] PRN PRN Reason: PAIN Stop: 09/03/16 11:39 Furosemide (Lasix -) 20 mg PO DAILY [facility] Last Admin: 09/01/16 11:27 Dose: 20 mg Levofloxacin (Levaquin 500 Mg Premixed Ivpb -) 100 mls @ 100 mls/hr IVPB DAILY [facility] Last Admin: 09/01/16 10:56 Dose: 100 mls/hr Lisinopril (Prinivil) 2.5 mg PO DAILY [facility] Last Admin: 09/01/16 11:00 Dose: 2.5 mg Metoclopramide HCl (Reglan Injection -) 10 mg IVPB Q8H-IV [facility] Last Admin: 09/01/16 11:01 Dose: 10 mg Metoprolol Tartrate (Lopressor -) 25 mg PO BID [facility] Last Admin: 09/01/16 10:56 Dose: 25 mg Pantoprazole Sodium (Protonix -) 40 mg PO DAILY [facility] Last Admin: 09/01/16 10:56 Dose: 40 mg Polyethylene Glycol (Miralax (For Daily Use) -) 17 gm PO DAILY [facility] Last Admin: 09/01/16 11:00 Dose: 17 grams Ursodiol (Actigal -) 300 mg PO BID [facility] Last Admin: 09/01/16 10:57 Dose: 300 mg Valproate Sodium (Depakene -) 250 mg PO BID [facility] Last Admin: 09/01/16 10:58 Dose: 250 mg - Objective Vital Signs: Vital Signs Temperature 97.5 F L 09/01/16 14:43 Pulse Rate 88 09/01/16 14:43 Respiratory Rate 20 09/01/16 14:43 Blood Pressure 130/78 09/01/16 14:00 O2 Sat by Pulse Oximetry (%) 97 09/01/16 09:00 Constitutional: Yes: No Distress, Calm Neck: Yes: Supple Cardiovascular: Yes: Pulse Irregular Respiratory: Yes: Regular, Diminished Gastrointestinal: Yes: Normal Bowel Sounds, Soft Edema: No Labs: CBC, BMP 08/30/16 05:40 08/30/16 06:05 INR, PTT INR 1.14 (0.82-1.09) 08/30/16 06:05 Problem List - Problems (1) Sepsis Code(s): A41.9 - SEPSIS, UNSPECIFIED ORGANISM Qualifiers: Sepsis type: sepsis due to unspecified organism Qualified Code(s): A41.9 - Sepsis, unspecified organism (2) Atrial fibrillation Code(s): I48.91 - UNSPECIFIED ATRIAL FIBRILLATION Qualifiers: Atrial fibrillation type: persistent Qualified Code(s): I48.1 - Persistent atrial fibrillation (3) Diastolic dysfunction Code(s): I51.9 - HEART DISEASE, UNSPECIFIED (4) Hyperlipidemia Code(s): E78.5 - HYPERLIPIDEMIA, UNSPECIFIED Qualifiers: Hyperlipidemia type: pure hypercholesterolemia Qualified Code(s): E78.0 - Pure hypercholesterolemia (5) Dementia Code(s): F03.90 - UNSPECIFIED DEMENTIA WITHOUT BEHAVIORAL DISTURBANCE Qualifiers: Dementia type: unspecified type Dementia behavioral disturbance: without behavioral disturbance Qualified Code(s): F03.90 - Unspecified dementia without behavioral disturbance (6) Demand ischemia Code(s): I24.8 - OTHER FORMS OF ACUTE ISCHEMIC HEART DISEASE (7) Coronary artery disease Code(s): I25.10 - ATHSCL HEART DISEASE OF [place] CORONARY ARTERY W/O ANG PCTRS Qualifiers: Coronary Disease-Associated Artery/Lesion type: [place] artery [place] vs. transplanted heart: [place] heart Associated angina: without angina Qualified Code(s): I25.10 - Atherosclerotic heart disease of [place] coronary artery without angina pectoris (8) Anticoagulation adequate with anticoagulant therapy Code(s): Z79.01 - RETIREMENT (CURRENT) USE OF ANTICOAGULANTS (9) Abnormal liver enzymes Code(s): R74.8 - ABNORMAL LEVELS OF OTHER SERUM ENZYMES (10) Choledocholithiasis Code(s): K80.50 - CALCULUS OF BILE DUCT W/O CHOLANGITIS OR CHOLECYST W/O OBST Assessment/Plan Echo 08/23/2016 Echo: Normal LV size and fxn, mild AR, MR 1. Toxic metabolic encephelopathy referable to sepsis with underlying dementia improving 2. Leukocytosis, demand ischemia, elevated LFT c/w acute cholecystitis/ cholangitis with choledocholithiasis s/p ERCP, extraction of CBD stones and placement of stent. 3. Persistent afib with tachy-sharon episodes off NOAC and Lovenox silke-procedure 4. CAD demand ischemia referable to #1 5. Diastolic dysfxn with elevated biomarkers 6. Hyperlipidemia 7. H/o breast ca P:1. Complete abx course, await laparoscopic cholecystectomy Tuesday09/03/2016, resume Xarelto post-op once hemostasis achieved 2. Continue Lopressor 25 bid, lisinopril 2.5 qd, Lasix 20 qd in AM, Lipitor held pending LFT normalization, Actigall 300 bid 3. DVT and GI prophylaxis 4. D/w daughter, may require single chamber pacer if AV deandre agents are to be uptitrated for rate-control, will monitor for now
--- NOTE | 2016-09-01 18:02 | PN ---
GI 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 Subjective: no abdominal pain tolerated diet, s/p ERCP - Objective Vital Signs: Vital Signs Temperature 97.5 F L 09/01/16 14:43 Pulse Rate 88 09/01/16 14:43 Respiratory Rate 20 09/01/16 14:43 Blood Pressure 130/78 09/01/16 14:00 O2 Sat by Pulse Oximetry (%) 97 09/01/16 09:00 Constitutional: Well Nourished Eyes: Yes: Conjunctiva Clear HENT: Yes: Atraumatic Neck: Yes: Supple Cardiovascular: Yes: Regular Rate and Rhythm Respiratory: Yes: CTA Bilaterally ...Palpate: Yes: Soft. No: Firm/Rigid, Guarding, Hepatomegaly, Mass, Pulsatile Mass, Splenomegaly, Tenderness, Tenderness, Epigastium Labs: CBC, BMP 08/30/16 05:40 08/30/16 06:05 INR, PTT INR 1.14 (0.82-1.09) 08/30/16 06:05 Problem List - Problems (1) Acute cholangitis Code(s): K83.0 - CHOLANGITIS (2) Choledocholithiasis Assessment/Plan: with CBD stricture R> patient daughter Jeana made aware of the findings, willl leave stent in place because of short stricture, will replace stent as necessary, no need for repat ERCP Code(s): K80.50 - CALCULUS OF BILE DUCT W/O CHOLANGITIS OR CHOLECYST W/O OBST
[2016-09-01] MEDS: DONEPEZIL HCL 10 MG TABLET (FP) PO SCH (22:08)
[2016-09-02] MEDS: METOCLOPRAMIDE HCL INJECTION 10 MG/2 ML VIAL IVPB SCH ×3 (02:14→17:07)
[2016-09-02] MEDS: clonazePAM 0.5 MG TABLET PO SCH ×3 (06:39→21:53)
[2016-09-02 09:01] LABS: BASOPHIL 0.7 % (0-2.0); EOSINOPHIL 1.4 % (0-4.5); MCH 30.8 pg (25.7-33.7); MCHC 32.4 g/dl (32.0-36.0); MEAN CELL VOLUME 95.1 fl (80-96); MEAN PLT VOLUME 8.1 fl (7.5-11.1); NEUTROPHILS 69.5 % (42.8-82.8); PLATELET COUNT 381 K/MM3 (134-434); RDW 14.3 % (11.6-15.6)
[2016-09-02 09:24] LABS: ALBUMIN 2.3 g/dl (3.4-5.0); ANION GAP 7 (8-16); BILIRUBIN,TOTAL 0.4 mg/dL (0.2-1.0); CO2 31 mmol/L (21-32); CREATININE 0.5 mg/dL (0.55-1.02); GLUCOSE,RANDOM 84 mg/dL (74-106); SGOT/AST 19 U/L (15-37); SGPT/ALT 27 U/L (12-78); TOT PROT 5.3 g/dl (6.4-8.2)
[2016-09-02 09:25] LABS: ALK PHOS 134 U/L (45-117)
[2016-09-02] MEDS ORDERED: ESCITALOPRAM OXALATE 10 MG TABLET (FP) ONE (10:02)
[2016-09-02] MEDS ORDERED: PT OWN MED DRAWER 7, Y5N ONE ×3 (10:04→13:36)
[2016-09-02] MEDS: VALPROATE SODIUM 250 MG/5 ML UNIT DOSE CUP PO SCH ×2 (10:07→21:53)
[2016-09-02] MEDS: LEVOFLOXACIN 500 MG IVPB 100 ML IVPB SCH (10:07)
[2016-09-02] MEDS: LISINOPRIL 5 MG TABLET (FP) PO SCH (10:08)
[2016-09-02] MEDS: PANTOPRAZOLE 40 MG TABLET (FP) PO SCH (10:08)
[2016-09-02] MEDS: METOPROLOL TARTRATE 25 MG TABLET (FP) PO SCH ×2 (10:08→21:53)
[2016-09-02] MEDS: URSODIOL 300 MG CAPSULE PO SCH ×2 (10:08→21:53)
[2016-09-02] MEDS: FUROSEMIDE 20 MG TABLET (FP) PO SCH (10:08)
[2016-09-02] MEDS: ESCITALOPRAM OXALATE 20 MG TABLET (FP) PO SCH (10:11)
[2016-09-02] MEDS: ANASTROZOLE 1 MG TABLET PO SCH (10:12)
[2016-09-02] MEDS: BACITRACIN 30 GM TUBE TOPICAL OINTMENT TP SCH (10:16)
[2016-09-02] MEDS: CLOTRIMAZOLE 1% CREAM 15 GM TUBE TP SCH ×2 (10:17→22:40)
[2016-09-02] MEDS: POLYETHYLENE GLYCOL 3350 119 GM BTL PO SCH (10:20)
--- NOTE | 2016-09-02 11:20 | PN ---
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, Physician Chief Complaint: awake and no distress Son at bedside - Current Medication List Current Medications: Active Medications Acetaminophen (Tylenol -) 650 mg PO Q4H PRN PRN Reason: FEVER > 101 Last Admin: 08/24/16 21:51 Dose: 650 mg Anastrozole (Arimidex -) 1 mg PO DAILY [facility] Last Admin: 09/02/16 10:12 Dose: 1 mg Bacitracin (Bacitracin -) 1 applic TP DAILY [facility] Last Admin: 09/02/16 10:16 Dose: 1 applic Clonazepam (Klonopin -) 0.5 mg PO TID [facility] Last Admin: 09/02/16 06:39 Dose: 0.5 mg Clotrimazole (Lotrimin 1% Cream -) 1 applic TP BID [facility] Last Admin: 09/02/16 10:17 Dose: 1 applic Donepezil HCl (Aricept -) 10 mg PO HS [facility] Last Admin: 09/01/16 22:08 Dose: 10 mg Escitalopram Oxalate (Lexapro -) 20 mg PO DAILY [facility] Last Admin: 09/02/16 10:11 Dose: 20 mg Fentanyl (Sublimaze Injection -) 50 mcg IVPUSH [id number] PRN PRN Reason: PAIN Stop: 09/03/16 11:39 Furosemide (Lasix -) 20 mg PO DAILY [facility] Last Admin: 09/02/16 10:08 Dose: 20 mg Levofloxacin (Levaquin 500 Mg Premixed Ivpb -) 100 mls @ 100 mls/hr IVPB DAILY [facility] Last Admin: 09/02/16 10:07 Dose: 100 mls/hr Lisinopril (Prinivil) 2.5 mg PO DAILY [facility] Last Admin: 09/02/16 10:08 Dose: 2.5 mg Metoclopramide HCl (Reglan Injection -) 10 mg IVPB Q8H-IV [facility] Last Admin: 09/02/16 10:08 Dose: 10 mg Metoprolol Tartrate (Lopressor -) 25 mg PO BID [facility] Last Admin: 09/02/16 10:08 Dose: 25 mg Pantoprazole Sodium (Protonix -) 40 mg PO DAILY [facility] Last Admin: 09/02/16 10:08 Dose: 40 mg Polyethylene Glycol (Miralax (For Daily Use) -) 17 gm PO DAILY [facility] Last Admin: 03/09/17 10:20 Dose: 17 grams Ursodiol (Actigal -) 300 mg PO BID [facility] Last Admin: 09/02/16 10:08 Dose: 300 mg Valproate Sodium (Depakene -) 250 mg PO BID [facility] Last Admin: 09/02/16 10:07 Dose: 250 mg - Objective Vital Signs: Vital Signs Temperature 98.2 F 09/02/16 10:00 Pulse Rate 90 09/02/16 10:00 Respiratory Rate 20 09/02/16 10:00 Blood Pressure 138/84 09/02/16 10:00 O2 Sat by Pulse Oximetry (%) 96 09/01/16 21:00 Constitutional: Yes: No Distress Cardiovascular: Yes: Pulse Irregular Respiratory: Yes: Diminished Gastrointestinal: Yes: Normal Bowel Sounds, Soft. No: Distention, Tenderness Edema: No Psychiatric: Yes: Alert Labs: CBC, BMP 09/02/16 07:50 09/02/16 07:50 INR, PTT INR 1.14 (0.82-1.09) 08/30/16 06:05 Problem List - Problems (1) Atrial fibrillation Code(s): I48.91 - UNSPECIFIED ATRIAL FIBRILLATION Qualifiers: Atrial fibrillation type: persistent Qualified Code(s): I48.1 - Persistent atrial fibrillation (2) Coronary artery disease Code(s): I25.10 - ATHSCL HEART DISEASE OF [place] CORONARY ARTERY W/O ANG PCTRS Qualifiers: Coronary Disease-Associated Artery/Lesion type: [place] artery [place] vs. transplanted heart: [place] heart Associated angina: without angina Qualified Code(s): I25.10 - Atherosclerotic heart disease of [place] coronary artery without angina pectoris (3) Dementia Code(s): F03.90 - UNSPECIFIED DEMENTIA WITHOUT BEHAVIORAL DISTURBANCE Qualifiers: Dementia type: unspecified type Dementia behavioral disturbance: without behavioral disturbance Qualified Code(s): F03.90 - Unspecified dementia without behavioral disturbance (4) Cholecystitis Code(s): K81.9 - CHOLECYSTITIS, UNSPECIFIED (5) Acute cholangitis Code(s): K83.0 - CHOLANGITIS (6) Choledocholithiasis Code(s): K80.50 - CALCULUS OF BILE DUCT W/O CHOLANGITIS OR CHOLECYST W/O OBST Assessment/Plan PLAN Xarelto held Lovenox on hold tomorrow scheduled for cholecystectomy completed iv antibiotics tolerating diet pain control IV fluids-- decrease pt cleared for surgery She will need to resume Lovenox or Heparin infusion afterwards
--- NOTE | 2016-09-02 14:33 | PN ---
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, Physician History of Present Illness: Afebrile, post ERCP, await cholecystectomy Tuesday. - Current Medication List Current Medications: Active Medications Acetaminophen (Tylenol -) 650 mg PO Q4H PRN PRN Reason: FEVER > 101 Last Admin: 08/24/16 21:51 Dose: 650 mg Anastrozole (Arimidex -) 1 mg PO DAILY [facility] Last Admin: 09/02/16 10:12 Dose: 1 mg Bacitracin (Bacitracin -) 1 applic TP DAILY [facility] Last Admin: 09/02/16 10:16 Dose: 1 applic Clonazepam (Klonopin -) 0.5 mg PO TID [facility] Last Admin: 09/02/16 13:39 Dose: 0.5 mg Clotrimazole (Lotrimin 1% Cream -) 1 applic TP BID [facility] Last Admin: 09/02/16 10:17 Dose: 1 applic Donepezil HCl (Aricept -) 10 mg PO HS [facility] Last Admin: 09/01/16 22:08 Dose: 10 mg Escitalopram Oxalate (Lexapro -) 20 mg PO DAILY [facility] Last Admin: 09/02/16 10:11 Dose: 20 mg Fentanyl (Sublimaze Injection -) 50 mcg IVPUSH [id number] PRN PRN Reason: PAIN Stop: 09/03/16 11:39 Furosemide (Lasix -) 20 mg PO DAILY [facility] Last Admin: 09/02/16 10:08 Dose: 20 mg Levofloxacin (Levaquin 500 Mg Premixed Ivpb -) 100 mls @ 100 mls/hr IVPB DAILY [facility] Last Admin: 09/02/16 10:07 Dose: 100 mls/hr Lisinopril (Prinivil) 2.5 mg PO DAILY [facility] Last Admin: 09/02/16 10:08 Dose: 2.5 mg Metoclopramide HCl (Reglan Injection -) 10 mg IVPB Q8H-IV [facility] Last Admin: 09/02/16 10:08 Dose: 10 mg Metoprolol Tartrate (Lopressor -) 25 mg PO BID [facility] Last Admin: 09/02/16 10:08 Dose: 25 mg Pantoprazole Sodium (Protonix -) 40 mg PO DAILY [facility] Last Admin: 09/02/16 10:08 Dose: 40 mg Polyethylene Glycol (Miralax (For Daily Use) -) 17 gm PO DAILY [facility] Last Admin: 09/02/16 10:20 Dose: 17 grams Ursodiol (Actigal -) 300 mg PO BID [facility] Last Admin: 09/02/16 10:08 Dose: 300 mg Valproate Sodium (Depakene -) 250 mg PO BID [facility] Last Admin: 09/02/16 10:07 Dose: 250 mg - Objective Vital Signs: Vital Signs Temperature 98.2 F 09/02/16 10:00 Pulse Rate 90 09/02/16 10:00 Respiratory Rate 20 09/02/16 10:00 Blood Pressure 138/84 09/02/16 10:00 O2 Sat by Pulse Oximetry (%) 96 09/02/16 09:00 Constitutional: Yes: No Distress, Calm Neck: Yes: Supple Cardiovascular: Yes: Pulse Irregular Respiratory: Yes: Regular, Diminished Gastrointestinal: Yes: Normal Bowel Sounds, Soft Edema: No Labs: CBC, BMP 09/02/16 07:50 09/02/16 07:50 INR, PTT INR 1.14 (0.82-1.09) 08/30/16 06:05 Problem List - Problems (1) Atrial fibrillation Code(s): I48.91 - UNSPECIFIED ATRIAL FIBRILLATION Qualifiers: Atrial fibrillation type: persistent Qualified Code(s): I48.1 - Persistent atrial fibrillation (2) Diastolic dysfunction Code(s): I51.9 - HEART DISEASE, UNSPECIFIED (3) Hyperlipidemia Code(s): E78.5 - HYPERLIPIDEMIA, UNSPECIFIED Qualifiers: Hyperlipidemia type: pure hypercholesterolemia Qualified Code(s): E78.0 - Pure hypercholesterolemia (4) Dementia Code(s): F03.90 - UNSPECIFIED DEMENTIA WITHOUT BEHAVIORAL DISTURBANCE Qualifiers: Dementia type: unspecified type Dementia behavioral disturbance: without behavioral disturbance Qualified Code(s): F03.90 - Unspecified dementia without behavioral disturbance (5) Demand ischemia Code(s): I24.8 - OTHER FORMS OF ACUTE ISCHEMIC HEART DISEASE (6) Coronary artery disease Code(s): I25.10 - ATHSCL HEART DISEASE OF [place] CORONARY ARTERY W/O ANG PCTRS Qualifiers: Coronary Disease-Associated Artery/Lesion type: [place] artery [place] vs. transplanted heart: [place] heart Associated angina: without angina Qualified Code(s): I25.10 - Atherosclerotic heart disease of [place] coronary artery without angina pectoris (7) Abnormal liver enzymes Code(s): R74.8 - ABNORMAL LEVELS OF OTHER SERUM ENZYMES (8) Choledocholithiasis Code(s): K80.50 - CALCULUS OF BILE DUCT W/O CHOLANGITIS OR CHOLECYST W/O OBST Assessment/Plan Echo 08/23/2016 Echo: Normal LV size and fxn, mild AR, MR 1. Toxic metabolic encephelopathy referable to sepsis with underlying dementia improving 2. Leukocytosis, demand ischemia, elevated LFT c/w acute cholecystitis/ cholangitis with choledocholithiasis with CBD stricture s/p ERCP, extraction of CBD stones and placement of stent. 3. Persistent afib with tachy-sharon episodes off NOAC and Lovenox silke-procedure 4. CAD demand ischemia referable to #1 5. Diastolic dysfxn with elevated biomarkers 6. Hyperlipidemia 7. H/o breast ca P:1. Complete abx course, await laparoscopic cholecystectomy Tuesday09/03/2016, resume Xarelto post-op once hemostasis achieved 2. Continue Lopressor 25 bid, lisinopril 2.5 qd, Lasix 20 qd, Lipitor held pending LFT normalization, Actigall 300 bid 3. Start heparin gtt silke-op, GI prophylaxis 4. D/w daughter, may require single chamber pacer if AV deandre agents are to be uptitrated for rate-control, will monitor for now
[2016-09-02] MEDS ORDERED: HEPARIN NA (PORCINE) 5,000 UNITS/ML 1ML VIAL IVPUSH PRN ×2 (14:50)
[2016-09-02] MEDS: HEPARIN - 25,000 UNIT in SODIUM CHLORIDE 495 ML IV SCH ×2 (15:55→22:41)
--- NOTE | 2016-09-02 16:13 | PN ---
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, Physician - Current Medication List Current Medications: Active Medications Acetaminophen (Tylenol -) 650 mg PO Q4H PRN PRN Reason: FEVER > 101 Last Admin: 08/24/16 21:51 Dose: 650 mg Anastrozole (Arimidex -) 1 mg PO DAILY [facility] Last Admin: 09/02/16 10:12 Dose: 1 mg Bacitracin (Bacitracin -) 1 applic TP DAILY [facility] Last Admin: 09/02/16 10:16 Dose: 1 applic Clonazepam (Klonopin -) 0.5 mg PO TID [facility] Last Admin: 09/02/16 13:39 Dose: 0.5 mg Clotrimazole (Lotrimin 1% Cream -) 1 applic TP BID [facility] Last Admin: 09/02/16 10:17 Dose: 1 applic Donepezil HCl (Aricept -) 10 mg PO HS [facility] Last Admin: 09/01/16 22:08 Dose: 10 mg Escitalopram Oxalate (Lexapro -) 20 mg PO DAILY [facility] Last Admin: 09/02/16 10:11 Dose: 20 mg Fentanyl (Sublimaze Injection -) 50 mcg IVPUSH [id number] PRN PRN Reason: PAIN Stop: 09/03/16 11:39 Furosemide (Lasix -) 20 mg PO DAILY [facility] Last Admin: 09/02/16 10:08 Dose: 20 mg Heparin Sodium (Porcine) (Heparin -) 1,000 unit IVPUSH PRN PRN PRN Reason: Heparin Heparin Sodium (Porcine) (Heparin -) 5,000 unit IVPUSH PRN PRN PRN Reason: Heparin Levofloxacin (Levaquin 500 Mg Premixed Ivpb -) 100 mls @ 100 mls/hr IVPB DAILY [facility] Last Admin: 09/02/16 10:07 Dose: 100 mls/hr Heparin Sodium (Porcine) 25, (000 unit/ Sodium Chloride) 500 mls @ 20 mls/hr IV TITR [facility]; 1,000 UNIT/HR PRN Reason: Protocol Last Admin: 09/02/16 15:55 Dose: 20 mls/hr Lisinopril (Prinivil) 2.5 mg PO DAILY [facility] Last Admin: 09/02/16 10:08 Dose: 2.5 mg Metoclopramide HCl (Reglan Injection -) 10 mg IVPB Q8H-IV [facility] Last Admin: 09/02/16 10:08 Dose: 10 mg Metoprolol Tartrate (Lopressor -) 25 mg PO BID [facility] Last Admin: 09/02/16 10:08 Dose: 25 mg Pantoprazole Sodium (Protonix -) 40 mg PO DAILY [facility] Last Admin: 09/02/16 10:08 Dose: 40 mg Polyethylene Glycol (Miralax (For Daily Use) -) 17 gm PO DAILY [facility] Last Admin: 09/02/16 10:20 Dose: 17 grams Ursodiol (Actigal -) 300 mg PO BID [facility] Last Admin: 09/02/16 10:08 Dose: 300 mg Valproate Sodium (Depakene -) 250 mg PO BID [facility] Last Admin: 09/02/16 10:07 Dose: 250 mg - Objective Vital Signs: Vital Signs Temperature 98.1 F 09/02/16 14:59 Pulse Rate 87 09/02/16 14:59 Respiratory Rate 20 09/02/16 14:59 Blood Pressure 121/77 09/02/16 14:59 O2 Sat by Pulse Oximetry (%) 96 09/02/16 09:00 Labs: CBC, BMP 09/02/16 07:50 09/02/16 07:50 INR, PTT INR 1.14 (0.82-1.09) 08/30/16 06:05 Problem List - Problems (1) Cholelithiasis Code(s): K80.20 - CALCULUS OF GALLBLADDER W/O CHOLECYSTITIS W/O OBSTRUCTION Qualifiers: Cholelithiasis location: gallbladder and bile duct Biliary obstruction : with biliary obstruction (2) Abnormal liver function Code(s): K76.89 - OTHER SPECIFIED DISEASES OF LIVER (3) Dilated bile duct Code(s): K83.8 - OTHER SPECIFIED DISEASES OF BILIARY TRACT Assessment/Plan Patient is comfortable. Has no complaints. Plan : Laparoscopic cholecystectomy tomorrow. I have discussed the procedure with the family, and they are in agreement. On IV heparin currently, which will be stopped just prior to surgery.
[2016-09-02] MEDS: DONEPEZIL HCL 10 MG TABLET (FP) PO SCH (21:53)
[2016-09-03] MEDS: METOCLOPRAMIDE HCL INJECTION 10 MG/2 ML VIAL IVPB SCH ×3 (01:59→17:56)
[2016-09-03] MEDS: clonazePAM 0.5 MG TABLET PO SCH ×3 (05:47→22:36)
--- NOTE | 2016-09-03 09:08 | PN ---
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 (short form) - Note 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: SUBJECTIVE: Patient seen and examined. Chart reviewed. Comfortable. Daughter at bedside. OBJECTIVE: Vital Signs 09/03/16 05:52 Temperature 97.4 F L Pulse Rate 87 Respiratory 20 Rate Blood Pressure 131/76 Intake & Output 09/02/16 09/03/16 09/03/16 23:59 07:59 15:59 Intake Total 190 Output Total 500 Balance -500 190 Intake: IV 190 Heparin - 25,000 Unit In 190 Normal Saline - 495 ml @ 1,000 UNIT/HR 20 mls/hr IV TITR [facility] Rx#: [id number] Output: Urine 500 Hicks 500 Other: Voiding Method Indwelling Catheter Bowel Movement No Active Medications Acetaminophen (Tylenol -) 650 mg PO Q4H PRN PRN Reason: FEVER > 101 Last Admin: 08/24/16 21:51 Dose: 650 mg Anastrozole (Arimidex -) 1 mg PO DAILY [facility] Last Admin: 09/03/16 10:12 Dose: Not Given Bacitracin (Bacitracin -) 1 applic TP DAILY [facility] Last Admin: 09/02/16 10:16 Dose: 1 applic Clonazepam (Klonopin -) 0.5 mg PO TID [facility] Last Admin: 09/03/16 05:47 Dose: Not Given Clotrimazole (Lotrimin 1% Cream -) 1 applic TP BID [facility] Last Admin: 09/02/16 22:40 Dose: 1 applic Donepezil HCl (Aricept -) 10 mg PO HS [facility] Last Admin: 09/02/16 21:53 Dose: 10 mg Escitalopram Oxalate (Lexapro -) 20 mg PO DAILY [facility] Last Admin: 09/03/16 10:13 Dose: Not Given Fentanyl (Sublimaze Injection -) 50 mcg IVPUSH [id number] PRN PRN Reason: PAIN Stop: 09/03/16 11:39 Furosemide (Lasix -) 20 mg PO DAILY [facility] Last Admin: 09/03/16 10:12 Dose: Not Given Heparin Sodium (Porcine) (Heparin -) 1,000 unit IVPUSH PRN PRN PRN Reason: Heparin Last Admin: 09/02/16 22:40 Dose: 1,000 unit Heparin Sodium (Porcine) (Heparin -) 5,000 unit IVPUSH PRN PRN PRN Reason: Heparin Levofloxacin (Levaquin 500 Mg Premixed Ivpb -) 100 mls @ 100 mls/hr IVPB DAILY [facility] Last Admin: 09/02/16 10:07 Dose: 100 mls/hr Heparin Sodium (Porcine) 25, (000 unit/ Sodium Chloride) 500 mls @ 20 mls/hr IV TITR [facility]; 1,000 UNIT/HR PRN Reason: Protocol Last Admin: 09/02/16 22:41 Dose: 22 mls/hr Potassium Chloride/Dextrose/Sod Cl (D5-1/2ns+10 Meq Kcl -) 1,000 mls @ 83 mls/ hr IV ASDIR [facility] Lisinopril (Prinivil) 2.5 mg PO DAILY [facility] Last Admin: 09/03/16 10:13 Dose: Not Given Metoclopramide HCl (Reglan Injection -) 10 mg IVPB Q8H-IV [facility] Last Admin: 09/03/16 01:59 Dose: 10 mg Metoprolol Tartrate (Lopressor -) 25 mg PO BID [facility] Last Admin: 09/03/16 10:13 Dose: Not Given Pantoprazole Sodium (Protonix -) 40 mg PO DAILY [facility] Last Admin: 09/03/16 10:13 Dose: Not Given Polyethylene Glycol (Miralax (For Daily Use) -) 17 gm PO DAILY [facility] Last Admin: 09/03/16 10:13 Dose: Not Given Ursodiol (Actigal -) 300 mg PO BID [facility] Last Admin: 09/03/16 10:12 Dose: Not Given Valproate Sodium (Depakene -) 250 mg PO BID [facility] Last Admin: 09/03/16 10:12 Dose: Not Given CBC, BMP 09/02/16 07:50 09/02/16 07:50 Laboratory Results - last 24 hr 09/02/16 21:30 PTT (Actin FS) 42.5 H PHYSICAL EXAMINATION: Constitutional: Yes: No Distress Cardiovascular: Yes: Pulse Irregular Respiratory: Yes: Diminished Gastrointestinal: Yes: Normal Bowel Sounds, Soft. No: Distention, Tenderness Edema: No Problem List - Problems (1) Atrial fibrillation Code(s): I48.91 - UNSPECIFIED ATRIAL FIBRILLATION Qualifiers: Atrial fibrillation type: persistent Qualified Code(s): I48.1 - Persistent atrial fibrillation (2) Coronary artery disease Code(s): I25.10 - ATHSCL HEART DISEASE OF [place] CORONARY ARTERY W/O ANG PCTRS Qualifiers: Coronary Disease-Associated Artery/Lesion type: [place] artery [place] vs. transplanted heart: [place] heart Associated angina: without angina Qualified Code(s): I25.10 - Atherosclerotic heart disease of [place] coronary artery without angina pectoris (3) Dementia Code(s): F03.90 - UNSPECIFIED DEMENTIA WITHOUT BEHAVIORAL DISTURBANCE Qualifiers: Dementia type: unspecified type Dementia behavioral disturbance: without behavioral disturbance Qualified Code(s): F03.90 - Unspecified dementia without behavioral disturbance (4) Cholecystitis Code(s): K81.9 - CHOLECYSTITIS, UNSPECIFIED (5) Acute cholangitis Code(s): K83.0 - CHOLANGITIS (6) Choledocholithiasis Code(s): K80.50 - CALCULUS OF BILE DUCT W/O CHOLANGITIS OR CHOLECYST W/O OBST ASSESSMENT & PLAN: - Xarelto held - Lovenox on hold - Scheduled for cholecystectomy today. - Completed iv antibiotics - Tolerating diet - Pain control - IV fluids-- start on mild hydration, as patient is NPO. - I had discussed case with Dr. Catherine also, last night. - Discussed with patient's daughter. - Will follow. Documentation prepared by Kasey Manuel, acting as a medical lab assistant for Sasha Paniagua MD. <Kasey Manuel - Last Filed: 09/03/16 11:07> Problem List - Problems (1) Sepsis Code(s): A41.9 - SEPSIS, UNSPECIFIED ORGANISM Qualifiers: Sepsis type: sepsis due to unspecified organism Qualified Code(s): A41.9 - Sepsis, unspecified organism <Sasha Paniagua - Last Filed: 09/03/16 09:08>
[2016-09-03] MEDS ORDERED: D5-1/2NS+10 MEQ KCL - 1,000 ML IV SCH (10:00)
[2016-09-03] MEDS: URSODIOL 300 MG CAPSULE PO SCH ×2 (10:12→22:42)
[2016-09-03] MEDS: VALPROATE SODIUM 250 MG/5 ML UNIT DOSE CUP PO SCH ×2 (10:12→22:41)
[2016-09-03] MEDS: ANASTROZOLE 1 MG TABLET PO SCH (10:12)
[2016-09-03] MEDS: FUROSEMIDE 20 MG TABLET (FP) PO SCH (10:12)
[2016-09-03] MEDS: POLYETHYLENE GLYCOL 3350 119 GM BTL PO SCH (10:13)
[2016-09-03] MEDS: LISINOPRIL 5 MG TABLET (FP) PO SCH (10:13)
[2016-09-03] MEDS: PANTOPRAZOLE 40 MG TABLET (FP) PO SCH (10:13)
[2016-09-03] MEDS: ESCITALOPRAM OXALATE 20 MG TABLET (FP) PO SCH (10:13)
[2016-09-03] MEDS: METOPROLOL TARTRATE 25 MG TABLET (FP) PO SCH ×2 (10:13→22:36)
[2016-09-03] MEDS: LEVOFLOXACIN 500 MG IVPB 100 ML IVPB SCH (10:42)
--- NOTE | 2016-09-03 12:10 | PN ---
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, Physician History of Present Illness: Afebrile, post ERCP, await cholecystectomy today. - Current Medication List Current Medications: Active Medications Acetaminophen (Tylenol -) 650 mg PO Q4H PRN PRN Reason: FEVER > 101 Last Admin: 08/24/16 21:51 Dose: 650 mg Anastrozole (Arimidex -) 1 mg PO DAILY [facility] Last Admin: 09/03/16 10:12 Dose: Not Given Bacitracin (Bacitracin -) 1 applic TP DAILY [facility] Last Admin: 09/02/16 10:16 Dose: 1 applic Clonazepam (Klonopin -) 0.5 mg PO TID [facility] Last Admin: 09/03/16 05:47 Dose: Not Given Clotrimazole (Lotrimin 1% Cream -) 1 applic TP BID [facility] Last Admin: 09/02/16 22:40 Dose: 1 applic Donepezil HCl (Aricept -) 10 mg PO HS [facility] Last Admin: 09/02/16 21:53 Dose: 10 mg Escitalopram Oxalate (Lexapro -) 20 mg PO DAILY [facility] Last Admin: 09/03/16 10:13 Dose: Not Given Furosemide (Lasix -) 20 mg PO DAILY [facility] Last Admin: 09/03/16 10:12 Dose: Not Given Heparin Sodium (Porcine) (Heparin -) 1,000 unit IVPUSH PRN PRN PRN Reason: Heparin Last Admin: 09/02/16 22:40 Dose: 1,000 unit Heparin Sodium (Porcine) (Heparin -) 5,000 unit IVPUSH PRN PRN PRN Reason: Heparin Levofloxacin (Levaquin 500 Mg Premixed Ivpb -) 100 mls @ 100 mls/hr IVPB DAILY [facility] Last Admin: 09/03/16 10:42 Dose: 100 mls/hr Heparin Sodium (Porcine) 25, (000 unit/ Sodium Chloride) 500 mls @ 20 mls/hr IV TITR [facility]; 1,000 UNIT/HR PRN Reason: Protocol Last Admin: 09/02/16 22:41 Dose: 22 mls/hr Potassium Chloride/Dextrose/Sod Cl (D5-1/2ns+10 Meq Kcl -) 1,000 mls @ 83 mls/ hr IV ASDIR [facility] Last Admin: 09/03/16 10:43 Dose: 83 mls/hr Lisinopril (Prinivil) 2.5 mg PO DAILY [facility] Last Admin: 09/03/16 10:13 Dose: Not Given Metoclopramide HCl (Reglan Injection -) 10 mg IVPB Q8H-IV [facility] Last Admin: 09/03/16 01:59 Dose: 10 mg Metoprolol Tartrate (Lopressor -) 25 mg PO BID [facility] Last Admin: 09/03/16 10:13 Dose: Not Given Pantoprazole Sodium (Protonix -) 40 mg PO DAILY [facility] Last Admin: 09/03/16 10:13 Dose: Not Given Polyethylene Glycol (Miralax (For Daily Use) -) 17 gm PO DAILY [facility] Last Admin: 09/03/16 10:13 Dose: Not Given Ursodiol (Actigal -) 300 mg PO BID [facility] Last Admin: 09/03/16 10:12 Dose: Not Given Valproate Sodium (Depakene -) 250 mg PO BID [facility] Last Admin: 09/03/16 10:12 Dose: Not Given - Objective Vital Signs: Vital Signs Temperature 97.4 F L 09/03/16 05:52 Pulse Rate 87 09/03/16 05:52 Respiratory Rate 20 09/03/16 05:52 Blood Pressure 131/76 09/03/16 05:52 O2 Sat by Pulse Oximetry (%) 97 09/02/16 20:29 Constitutional: Yes: No Distress, Calm Neck: Yes: Supple Cardiovascular: Yes: Pulse Irregular Respiratory: Yes: Regular, Diminished Gastrointestinal: Yes: Soft, Hypoactive Bowel Sounds Edema: No Labs: CBC, BMP 09/02/16 07:50 09/02/16 07:50 INR, PTT INR 1.14 (0.82-1.09) 08/30/16 06:05 Problem List - Problems (1) Atrial fibrillation Code(s): I48.91 - UNSPECIFIED ATRIAL FIBRILLATION Qualifiers: Atrial fibrillation type: persistent Qualified Code(s): I48.1 - Persistent atrial fibrillation (2) Diastolic dysfunction Code(s): I51.9 - HEART DISEASE, UNSPECIFIED (3) Hyperlipidemia Code(s): E78.5 - HYPERLIPIDEMIA, UNSPECIFIED Qualifiers: Hyperlipidemia type: pure hypercholesterolemia Qualified Code(s): E78.0 - Pure hypercholesterolemia (4) Dementia Code(s): F03.90 - UNSPECIFIED DEMENTIA WITHOUT BEHAVIORAL DISTURBANCE Qualifiers: Dementia type: unspecified type Dementia behavioral disturbance: without behavioral disturbance Qualified Code(s): F03.90 - Unspecified dementia without behavioral disturbance (5) Demand ischemia Code(s): I24.8 - OTHER FORMS OF ACUTE ISCHEMIC HEART DISEASE (6) Coronary artery disease Code(s): I25.10 - ATHSCL HEART DISEASE OF [place] CORONARY ARTERY W/O ANG PCTRS Qualifiers: Coronary Disease-Associated Artery/Lesion type: [place] artery [place] vs. transplanted heart: [place] heart Associated angina: without angina Qualified Code(s): I25.10 - Atherosclerotic heart disease of [place] coronary artery without angina pectoris (7) Abnormal liver enzymes Code(s): R74.8 - ABNORMAL LEVELS OF OTHER SERUM ENZYMES (8) Choledocholithiasis Code(s): K80.50 - CALCULUS OF BILE DUCT W/O CHOLANGITIS OR CHOLECYST W/O OBST Assessment/Plan Echo 08/23/2016 Echo: Normal LV size and fxn, mild AR, MR 1. Toxic metabolic encephelopathy referable to sepsis with underlying dementia improving 2. Leukocytosis, demand ischemia, elevated LFT c/w acute cholecystitis/ cholangitis with choledocholithiasis with CBD stricture s/p ERCP, extraction of CBD stones and placement of stent. 3. Persistent afib with tachy-sharon episodes off NOAC and Lovenox silke-procedure 4. CAD demand ischemia referable to #1 5. Diastolic dysfxn with elevated biomarkers 6. Hyperlipidemia 7. H/o breast ca P:1. Complete abx course, plan for laparoscopic cholecystectomy Tuesday09/03/2016 , resume Xarelto post-op once hemostasis achieved 2. Continue Lopressor 25 bid, lisinopril 2.5 qd, Lasix 20 qd, Lipitor held pending LFT normalization, Actigall 300 bid 3. On heparin gtt silke-op, GI prophylaxis 4. Check post-op EKG and cardiac enzymes
[2016-09-03] MEDS: CLOTRIMAZOLE 1% CREAM 15 GM TUBE TP SCH ×2 (14:21→22:36)
[2016-09-03] MEDS: BACITRACIN 30 GM TUBE TOPICAL OINTMENT TP SCH (14:21)
[2016-09-03] MEDS ORDERED: BUPIVACAINE HCL/PF 0.5% (5MG/ML) 10 ML VIAL IJ ONE ×2 (16:39)
[2016-09-03] MEDS ORDERED: ETOMIDATE 20 MG/10 ML AMPUL IVPUSH ONE (17:50)
[2016-09-03] MEDS ORDERED: ROCURONIUM BROMIDE 50 MG/5 ML VIAL ONE (17:51)
[2016-09-03] MEDS ORDERED: MIDAZOLAM HCL 2 MG/2 ML SINGLE DOSE VIAL ONE (17:57)
[2016-09-03] MEDS ORDERED: ESMOLOL HCL 10 ML ONE (17:59)
[2016-09-03] MEDS ORDERED: ONDANSETRON 4 MG/2 ML VIAL ONE (18:21)
[2016-09-03] MEDS ORDERED: DEXAMETHASONE SOD PHOSPHATE 4 MG/1 ML VIAL ONE (18:21)
[2016-09-03] MEDS ORDERED: LABETALOL HCL 5 MG/1 ML (100MG/20 ML VIAL) ONE (18:23)
[2016-09-03] MEDS ORDERED: BUPIVACAINE HCL/PF 0.5% (5MG/ML) 10 ML VIAL ONE (18:31)
[2016-09-03] MEDS ORDERED: NEOSTIGMINE METHYLSULFATE 0.5 MG/ML - 10 ML MDV ONE (18:42)
[2016-09-03] MEDS ORDERED: GLYCOPYRROLATE 0.2 MG/1 ML VIAL ONE (18:42)
--- NOTE | 2016-09-03 18:55 | OP ---
Operative Note - Note: Operative Date: 09/03/16 Pre-Operative Diagnosis: Colelithiasis, choledocholithiasis, wuth cholecystitis , and cholangitis. Operation: Lapraoscopic cholecystectomy. Findings: Distended , edematous gallbladder. Post-Operative Diagnosis: Same as Pre-op Surgeon: Felipa Catherine Wet Pour Mixer: Lisa Chamorro Anesthesiologist/TOOL TROUBLE SHOOTER: Carlitos Darnell Anesthesia: General Specimens Removed: Gallbladder. Estimated Blood Loss (mls): 5 Operative Report Dictated: Yes
[2016-09-03] MEDS ORDERED: DEXTROSE 5%-0.45% SALINE 1,000 ML IV SCH (19:00)
[2016-09-03] MEDS: METOPROLOL TARTRATE 5 MG/5 ML VIAL IVPUSH ONE (19:30)
[2016-09-03] MEDS ORDERED: ACETAMINOPHEN 325 MG TABLET (FP) PO PRN (19:43)
[2016-09-03] MEDS ORDERED: HEPARIN NA (PORCINE) 5,000 UNITS/ML 1ML VIAL IVPUSH PRN ×3 (19:43)
[2016-09-03] MEDS ORDERED: DONEPEZIL HCL 10 MG TABLET (FP) PO SCH (22:00)
[2016-09-03] MEDS ORDERED: HYDROmorphone HCL CARPU-JECT 1 MG/1 ML DISP.SYRIN IVPUSH PRN (22:20)
[2016-09-03 22:27] LABS: TROPONIN I < 0.02 ng/ml (0.00-0.05)
--- NOTE | 2016-09-03 22:35 | CONSULT ---
Consult Consult Specialty:: PULM/CRITICAL CARE MEDICINE Referred by:: Roosevelt Reason for Consultation:: cholecystitis, cholangitis, s/p lap celeste - History of Present Illness Chief Complaint: abdominal pain History of Present Illness: 75 y/o woman NHR w/dementia, CAD, HTN, CHF, AF (on AC), presented to the hospital with AMS, she was admitted to the floor. More recently she was found to have cholelithiasis with acute cholecystits and cholangitis. She was taken to the OR today and underwent a lap celeste. She was extubated in the OR, recovered in the PACU and admitted to the ICU post-op given her comorbidities and tenuous cardiopulmonary status. 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: Yes: Dementia Cardio/Vascular: Yes: AFIB, CHF Gastrointestinal: Yes: Other (Appendectomy at age 4 and, reexploration, laparotomy 5 years ago) Hepatobiliary: Yes: Cholecystitis (son gives h/o cholecystitits in past) - Past Surgical History Past Surgical History: Yes: Mastectomy (left sided) - Alcohol/Substance Use Hx Alcohol Use: No - Smoking History Smoking history: Never smoked Have you smoked in the past 12 months: No - Social History Usual Living Arrangement: Retirement ADL: Support Services Home Medications - Allergies Allergies/Adverse Reactions: Allergies Allergy/AdvReac Type Severity Reaction Status Date / Time No Known Allergies Allergy Verified 08/20/16 16:15 - Home Medications Home Medications: Ambulatory Orders Acetaminophen [Tylenol -] 650 mg PO Q8H 08/20/16 Anastrozole [Arimidex -] 1 mg PO DAILY 08/20/16 Atorvastatin Ca [Lipitor] 10 mg PO HS 08/20/16 Clonazepam [KlonoPIN] 0.5 mg PO TID 08/20/16 Clotrimazole [Lotrimin 1% Cream -] 1 applic TP BID 08/20/16 Digoxin [Digitek] 125 mcg PO ASDIR 08/20/16 Divalproex [Depakote -] 250 mg PO BID 08/20/16 Donepezil HCl [Aricept -] 10 mg PO HS 08/20/16 Escitalopram Oxalate [Lexapro -] 20 mg PO DAILY 08/20/16 Furosemide [Lasix] 40 mg PO DAILY 08/20/16 Isosorbide Mononitrate [Isosorbide Mononitrate ER] 30 mg PO DAILY 08/20/16 Lisinopril [Zestril] 2.5 mg PO DAILY 08/20/16 Melatonin 2 mg PO HS 08/20/16 Metoprolol Tartrate [Lopressor -] 50 mg PO BID 08/20/16 Multivitamin with Minerals [Icaps Plus] 1 each PO DAILY 08/20/16 Polyethylene Glycol 3350 [Gavilax] 17 gm PO DAILY 08/20/16 Rivaroxaban [Xarelto -] 20 mg PO DAILY 08/20/16 Review of Systems Unable to obtain ROS, reason: advanced dementia Physical Exam Vital Signs: Vital Signs Temperature 98.0 F 09/03/16 21:55 Pulse Rate 102 H 09/03/16 21:55 Respiratory Rate 16 09/03/16 21:55 Blood Pressure 151/85 09/03/16 21:55 O2 Sat by Pulse Oximetry (%) 98 09/03/16 21:55 Constitutional: Yes: No Distress, Calm Eyes: Yes: PERRL HENT: Yes: Atraumatic, Normocephalic Neck: Yes: Supple, Trachea Midline Cardiovascular: Yes: Pulse Irregular. No: JVD Respiratory: Yes: Regular, Diminished, On Nasal O2. No: Accessory Muscle Use Gastrointestinal: Yes: Soft, Tenderness Edema: No Peripheral Pulses WNL: Yes Wound/Incision: Yes: Clean/Dry Neurological: Yes: Confusion, Weakness Labs: CBC, BMP 09/02/16 07:50 09/02/16 07:50 Imaging - Results Chest X-ray: Report Reviewed, Image Reviewed Assessment/Plan Advanced dementia CHF AF HTN HLD Cholelithiasis with cholecystitis and cholangitis s/p lap celeste -Pain management -Rate control -Restart AC for AF per surgery -Advance diet per surgery -Even fluid balance -Supplemental O2 -IS, OOB as able -DVT and GI PPx Monitor in ICU overnight and can transition to the floor tomorrow if remains sable DNR Thank you for this interesting consult Micha Novoa Pulm/Critical Care LEAF [facility]IN[facility]
[2016-09-04] MEDS: METOCLOPRAMIDE HCL INJECTION 10 MG/2 ML VIAL IVPB SCH ×3 (02:30→18:05)
[2016-09-04] MEDS: clonazePAM 0.5 MG TABLET PO SCH ×3 (06:20→21:39)
[2016-09-04 06:24] LABS: MCH 31.7 pg (25.7-33.7); MCHC 33.2 g/dl (32.0-36.0); MEAN CELL VOLUME 95.6 fl (80-96); MEAN PLT VOLUME 8.3 fl (7.5-11.1); PLATELET COUNT 368 K/MM3 (134-434)
[2016-09-04 06:35] LABS: CALCIUM 8.8 mg/dL (8.5-10.1); CREATININE 0.6 mg/dL (0.55-1.02)
--- NOTE | 2016-09-04 07:02 | PN ---
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 (short form) - Note 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: Chief Complaint: Events noted, notes reviewed, cholecystitis, cholangitis, post lap cholecystectomy, lethargic, remains in atrial fibrillation rate controlled History of Present Illness: seen and examined in the ICU. Events noted, notes reviewed, cholecystitis, cholangitis, post lap cholecystectomy, lethargic, remains in atrial fibrillation rate controlled Heparin drip to be resumed, and recommend resumption of NOAC's once cleared by surgery Echocardiography performed 08/23/2016 revealed normal LV size and function, with mild AR and MR - Current Medication List Current Medications Acetaminophen (Tylenol -) 650 mg PO Q4H PRN PRN Reason: FEVER > 101 Anastrozole (Arimidex -) 1 mg PO DAILY [facility] Bacitracin (Bacitracin -) 1 applic TP DAILY [facility] Clonazepam (Klonopin -) 0.5 mg PO TID [facility] Last Admin: 09/04/16 06:20 Dose: 0.5 mg Clotrimazole (Lotrimin 1% Cream -) 1 applic TP BID [facility] Last Admin: 09/03/16 22:36 Dose: 1 applic Donepezil HCl (Aricept -) 10 mg PO HS [facility] Last Admin: 09/03/16 22:35 Dose: 10 mg Escitalopram Oxalate (Lexapro -) 20 mg PO DAILY [facility] Furosemide (Lasix -) 20 mg PO DAILY [facility] Heparin Sodium (Porcine) (Heparin -) 5,000 unit IVPUSH PRN PRN PRN Reason: Heparin Heparin Sodium (Porcine) (Heparin -) 1,000 unit IVPUSH PRN PRN PRN Reason: Heparin Heparin Sodium (Porcine) (Heparin -) 5,000 unit IVPUSH PRN PRN PRN Reason: Heparin Hydromorphone HCl (Dilaudid Injection -) 0.5 mg IVPUSH Q4H PRN PRN Reason: PAIN Last Admin: 09/03/16 22:43 Dose: 0.5 mg Dextrose/Sodium Chloride (D5-1/2ns -) 1,000 mls @ 42 mls/hr IV ASDIR [facility] Last Admin: 09/03/16 20:20 Dose: 42 mls/hr Heparin Sodium (Porcine) 25, (000 unit/ Sodium Chloride) 500 mls @ 20 mls/hr IV TITR [facility]; 1,000 UNIT/HR PRN Reason: Protocol Levofloxacin (Levaquin 500 Mg Premixed Ivpb -) 100 mls @ 100 mls/hr IVPB DAILY [facility] Lisinopril (Prinivil) 2.5 mg PO DAILY [facility] Metoclopramide HCl (Reglan Injection -) 10 mg IVPB Q8H-IV [facility] Last Admin: 09/04/16 02:30 Dose: 10 mg Metoprolol Tartrate (Lopressor -) 25 mg PO BID [facility] Last Admin: 09/03/16 22:36 Dose: 25 mg Pantoprazole Sodium (Protonix -) 40 mg PO DAILY [facility] Polyethylene Glycol (Miralax (For Daily Use) -) 17 gm PO DAILY [facility] Ursodiol (Actigal -) 300 mg PO BID [facility] Last Admin: 09/03/16 22:42 Dose: 300 mg Valproate Sodium (Depakene -) 250 mg PO BID [facility] Last Admin: 09/03/16 22:41 Dose: 250 mg Review of Systems: Unable to obtain related to lethargy - Objective Vital Signs: Last Vital Signs Temp Pulse Resp BP Pulse Ox 98.0 F 76 20 116/74 98 09/04/16 06:00 09/04/16 06:00 09/04/16 06:00 09/04/16 06:00 09/03/16 22:56 Constitutional: No Distress, Calm Neck: Supple Negative JVD Cardiovascular: S1 S2 Irregularly Irregular Respiratory: Diminished Breath Sounds at the Bases Gastrointestinal: Soft Hypoactive Bowel Sounds Ext: No Edema Labs: CBC, BMP 09/04/16 05:20 09/04/16 05:20 INR, PTT INR 1.14 (0.82-1.09) 08/30/16 06:05 Troponin, BNP 09/03/16 21:30 Troponin I < 0.02 Assessment/Plan ASSESSMENT: 1. Post lap cholecystectomy for cholecystitis/cholangitis 2. CAD angina pectoris post demand ischemic injury 3. Diastolic LV dysfunction with class I NYHA classification LV failure, compensated 4. Persistent atrial fibrillation rate controlled off of NOAC's to resume A/C 5. Toxic metabolic encephelopathy referable to sepsis with underlying dementia, resolving 6. Acute cholecystitis/cholangitis with choledocholithiasis with CBD stricture post ERCP, extraction of CBD stones and stent placement 7. Hyperlipidemia 8. History of breast carcinoma PLAN: 1. Resume Heparin drip and eventually Xarelto once cleared surgically 2. Continue Lopressor 3. Continue Lisinopril 4. Continue Lasix 5. Continue Lipitor 6. Consider D/C Actigal post cholecystectomy 7. May transfer to floor care from the cardiovascular point of view Skip Childs MD
[2016-09-04] MEDS ORDERED: HEPARIN INFUSION - 500 ML IVPB ONE (07:20)
[2016-09-04] MEDS: HEPARIN - 25,000 UNIT in SODIUM CHLORIDE 495 ML IV SCH ×3 (07:29→21:38)
[2016-09-04] MEDS ORDERED: PT OWN MED DRAWER 7, Y5N ONE ×3 (07:30→21:10)
--- NOTE | 2016-09-04 07:39 | PN ---
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 (short form) - Note 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: PULM/CRITICAL CARE MEDICINE PROGRESS NOTE: Pt seen and examined in the ICU Events: remains stable overnight, afebrile, rate controlled AF, tolerating POs Current Medications Acetaminophen (Tylenol -) 650 mg PO Q4H PRN PRN Reason: FEVER > 101 Anastrozole (Arimidex -) 1 mg PO DAILY [facility] Bacitracin (Bacitracin -) 1 applic TP DAILY [facility] Clonazepam (Klonopin -) 0.5 mg PO TID [facility] Last Admin: 09/04/16 06:20 Dose: 0.5 mg Clotrimazole (Lotrimin 1% Cream -) 1 applic TP BID [facility] Last Admin: 09/03/16 22:36 Dose: 1 applic Donepezil HCl (Aricept -) 10 mg PO HS [facility] Last Admin: 09/03/16 22:35 Dose: 10 mg Escitalopram Oxalate (Lexapro -) 20 mg PO DAILY [facility] Furosemide (Lasix -) 20 mg PO DAILY [facility] Heparin Sodium (Porcine) (Heparin -) 5,000 unit IVPUSH PRN PRN PRN Reason: Heparin Heparin Sodium (Porcine) (Heparin -) 1,000 unit IVPUSH PRN PRN PRN Reason: Heparin Heparin Sodium (Porcine) (Heparin -) 5,000 unit IVPUSH PRN PRN PRN Reason: Heparin Hydromorphone HCl (Dilaudid Injection -) 0.5 mg IVPUSH Q4H PRN PRN Reason: PAIN Last Admin: 09/03/16 22:43 Dose: 0.5 mg Dextrose/Sodium Chloride (D5-1/2ns -) 1,000 mls @ 42 mls/hr IV ASDIR [facility] Last Admin: 09/03/16 20:20 Dose: 42 mls/hr Heparin Sodium (Porcine) 25, (000 unit/ Sodium Chloride) 500 mls @ 20 mls/hr IV TITR [facility]; 1,000 UNIT/HR PRN Reason: Protocol Last Admin: 09/04/16 07:29 Dose: 22 mls/hr Levofloxacin (Levaquin 500 Mg Premixed Ivpb -) 100 mls @ 100 mls/hr IVPB DAILY [facility] Lisinopril (Prinivil) 2.5 mg PO DAILY [facility] Metoclopramide HCl (Reglan Injection -) 10 mg IVPB Q8H-IV [facility] Last Admin: 09/04/16 02:30 Dose: 10 mg Metoprolol Tartrate (Lopressor -) 25 mg PO BID [facility] Last Admin: 09/03/16 22:36 Dose: 25 mg Pantoprazole Sodium (Protonix -) 40 mg PO DAILY [facility] Polyethylene Glycol (Miralax (For Daily Use) -) 17 gm PO DAILY [facility] Ursodiol (Actigal -) 300 mg PO BID [facility] Last Admin: 09/03/16 22:42 Dose: 300 mg Valproate Sodium (Depakene -) 250 mg PO BID [facility] Last Admin: 09/03/16 22:41 Dose: 250 mg Vital Signs Temp 98.0 F 09/04/16 06:00 Pulse 76 09/04/16 06:00 Resp 20 09/04/16 06:00 BP 116/74 09/04/16 06:00 Pulse Ox 98 09/03/16 22:56 Intake & Output 09/03/16 09/04/16 09/04/16 18:59 06:59 18:59 Intake Total 500 736 Output Total 325 600 Balance 175 136 Weight 70.364 kg Intake: IV 500 636 D5-1/2Ns - 1,000 ml @ 42 336 mls/hr IV ASDIR [facility] Rx#: [id number] IVPB 100 Output: Urine 325 600 Hicks 300 200 Other: Voiding Method Indwelling Catheter Indwelling Catheter Bowel Movement Yes Weight Measurement Method Built in [facility] EXAM: Neuro: awake, not oriented, answers questions and follows commands HENNT: PERRL Lungs: diminished bases Heart: irregular Abd: soft, non-tender Ext: warm, no edema Skin: warm, dry CBC, BMP 09/04/16 05:20 09/04/16 05:20 Assessment/Plan Advanced dementia CHF AF HTN HLD Cholelithiasis with cholecystitis and cholangitis s/p lap celeste -Pain management -Rate control -Restart AC for AF per surgery -Advance diet per surgery -Even fluid balance -Supplemental O2 -Abx per ID -IS, OOB as able -DVT and GI PPx DNR Transfer to the floor 35min Micha Novoa Pulm/Critical Care PHOSPHATIC FERTILIZER SUPERVISOR
--- NOTE | 2016-09-04 08:06 | SURG ---
Surgery Supervisor Evaporator Note Supervisor Evaporator: Lisa Chamorro PA-C Date of Service: 09/04/16 Diagnosis: Colelithiasis, choledocholithiasis, wuth cholecystitis, and cholangitis. Procedure: Lapraoscopic cholecystectomy. I was present for the entirety of the operative procedure. For further detail, please refer to operative report. Visit type - Case Type Case Type: ED Admission - Emergency Emergency Visit: Yes ED Registration Date: 08/20/16 Care time: The patient presented to the Emergency Department on the above date and was hospitalized for further evaluation of their emergent condition. - New patient This patient is new to me today: Yes Date on this admission: 09/04/16 - Critical Care Critical Care patient: No
[2016-09-04] MEDS ORDERED: POLYETHYLENE GLYCOL 3350 119 GM BTL PO SCH (10:00)
[2016-09-04] MEDS ORDERED: ANASTROZOLE 1 MG TABLET PO SCH (10:00)
[2016-09-04] MEDS ORDERED: LEVOFLOXACIN 500 MG IVPB 100 ML IVPB SCH (10:00)
[2016-09-04] MEDS ORDERED: PANTOPRAZOLE 40 MG TABLET (FP) PO SCH (10:00)
[2016-09-04] MEDS ORDERED: FUROSEMIDE 20 MG TABLET (FP) PO SCH (10:00)
[2016-09-04] MEDS ORDERED: LISINOPRIL 5 MG TABLET (FP) PO SCH (10:00)
[2016-09-04] MEDS ORDERED: ESCITALOPRAM OXALATE 20 MG TABLET (FP) PO SCH (10:00)
[2016-09-04] MEDS: VALPROATE SODIUM 250 MG/5 ML UNIT DOSE CUP PO SCH ×2 (10:02→21:39)
[2016-09-04] MEDS: METOPROLOL TARTRATE 25 MG TABLET (FP) PO SCH ×2 (10:03→21:39)
[2016-09-04] MEDS: CLOTRIMAZOLE 1% CREAM 15 GM TUBE TP SCH ×3 (10:05→21:39)
--- NOTE | 2016-09-04 10:49 | PN ---
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 (short form) - Note 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: Pt seen/ examined awake/ comfortable pod # [address] Catherine last night denies pain Vital Signs Temp 98.0 F 09/04/16 06:00 Pulse 78 09/04/16 08:00 Resp 18 09/04/16 08:00 BP 131/92 09/04/16 08:00 Pulse Ox 97 09/04/16 07:55 Intake & Output 09/03/16 09/03/16 09/04/16 11:59 23:59 11:59 Intake Total 190 800 436 Output Total 725 200 Balance 190 75 236 Weight 155 lb 2 oz Intake: IV 190 800 336 Heparin - 25,000 Unit In 190 Normal Saline - 495 ml @ 1,000 UNIT/HR 20 mls/hr IV TITR [facility] Rx#: [id number] D5-1/2Ns - 1,000 ml @ 42 336 mls/hr IV ASDIR [facility] Rx#: [id number] IVPB 100 Output: Urine 725 200 Hicks 300 200 Other: Voiding Method Indwelling Catheter Indwelling Catheter Indwelling Catheter Bowel Movement Yes Weight Measurement Method Built in [facility] Active Medications Acetaminophen (Tylenol -) 650 mg PO Q4H PRN PRN Reason: FEVER > 101 Anastrozole (Arimidex -) 1 mg PO DAILY [facility] Last Admin: 09/04/16 10:01 Dose: 1 mg Bacitracin (Bacitracin -) 1 applic TP DAILY [facility] Clonazepam (Klonopin -) 0.5 mg PO TID [facility] Last Admin: 09/04/16 06:20 Dose: 0.5 mg Clotrimazole (Lotrimin 1% Cream -) 1 applic TP BID [facility] Last Admin: 09/03/16 22:36 Dose: 1 applic Donepezil HCl (Aricept -) 10 mg PO HS [facility] Last Admin: 09/03/16 22:35 Dose: 10 mg Escitalopram Oxalate (Lexapro -) 20 mg PO DAILY [facility] Last Admin: 09/04/16 10:02 Dose: 20 mg Furosemide (Lasix -) 20 mg PO DAILY [facility] Last Admin: 09/04/16 10:02 Dose: 20 mg Heparin Sodium (Porcine) (Heparin -) 5,000 unit IVPUSH PRN PRN PRN Reason: Heparin Heparin Sodium (Porcine) (Heparin -) 1,000 unit IVPUSH PRN PRN PRN Reason: Heparin Heparin Sodium (Porcine) (Heparin -) 5,000 unit IVPUSH PRN PRN PRN Reason: Heparin Hydromorphone HCl (Dilaudid Injection -) 0.5 mg IVPUSH Q4H PRN PRN Reason: PAIN Last Admin: 09/03/16 22:43 Dose: 0.5 mg Dextrose/Sodium Chloride (D5-1/2ns -) 1,000 mls @ 42 mls/hr IV ASDIR [facility] Last Admin: 09/03/16 20:20 Dose: 42 mls/hr Heparin Sodium (Porcine) 25, (000 unit/ Sodium Chloride) 500 mls @ 20 mls/hr IV TITR [facility]; 1,000 UNIT/HR PRN Reason: Protocol Last Admin: 09/04/16 07:29 Dose: 22 mls/hr Levofloxacin (Levaquin 500 Mg Premixed Ivpb -) 100 mls @ 100 mls/hr IVPB DAILY [facility] Last Admin: 09/04/16 10:04 Dose: 100 mls/hr Lisinopril (Prinivil) 2.5 mg PO DAILY [facility] Last Admin: 09/04/16 10:03 Dose: 2.5 mg Metoclopramide HCl (Reglan Injection -) 10 mg IVPB Q8H-IV [facility] Last Admin: 09/04/16 02:30 Dose: 10 mg Metoprolol Tartrate (Lopressor -) 25 mg PO BID [facility] Last Admin: 09/04/16 10:03 Dose: 25 mg Pantoprazole Sodium (Protonix -) 40 mg PO DAILY [facility] Last Admin: 09/04/16 10:03 Dose: 40 mg Polyethylene Glycol (Miralax (For Daily Use) -) 17 gm PO DAILY [facility] Ursodiol (Actigal -) 300 mg PO BID [facility] Last Admin: 09/03/16 22:42 Dose: 300 mg Valproate Sodium (Depakene -) 250 mg PO BID [facility] Last Admin: 09/04/16 10:02 Dose: 250 mg CBC, BMP 09/04/16 05:20 09/04/16 05:20 PHYSICAL EXAMINATION: Constitutional: Yes: No Distress Cardiovascular: Yes: Pulse Irregular Respiratory: Yes: Diminished Gastrointestinal: Yes: Normal Bowel Sounds, Soft. No: Distention, Tenderness Edema: No ASSESSMENT & PLAN: - s/p cholecystectomy/ ercp - on i/v abx - started on heparin drip - will switch when cleared by - transfer to floor. - if continue to improve- will consider d/c in 1-2 days Problem List - Problems (1) Sepsis Code(s): A41.9 - SEPSIS, UNSPECIFIED ORGANISM Qualifiers: Sepsis type: sepsis due to unspecified organism Qualified Code(s): A41.9 - Sepsis, unspecified organism (2) Atrial fibrillation Code(s): I48.91 - UNSPECIFIED ATRIAL FIBRILLATION Qualifiers: Atrial fibrillation type: persistent Qualified Code(s): I48.1 - Persistent atrial fibrillation (3) Cholecystitis Code(s): K81.9 - CHOLECYSTITIS, UNSPECIFIED (4) Coronary artery disease Code(s): I25.10 - ATHSCL HEART DISEASE OF [place] CORONARY ARTERY W/O ANG PCTRS Qualifiers: Coronary Disease-Associated Artery/Lesion type: [place] artery [place] vs. transplanted heart: [place] heart Associated angina: without angina Qualified Code(s): I25.10 - Atherosclerotic heart disease of [place] coronary artery without angina pectoris (5) Dementia Code(s): F03.90 - UNSPECIFIED DEMENTIA WITHOUT BEHAVIORAL DISTURBANCE Qualifiers: Dementia type: unspecified type Dementia behavioral disturbance: without behavioral disturbance Qualified Code(s): F03.90 - Unspecified dementia without behavioral disturbance
[2016-09-04] MEDS: URSODIOL 300 MG CAPSULE PO SCH ×2 (11:37→21:38)
--- NOTE | 2016-09-04 12:33 | PN ---
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 (short form) - Note 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: Post anesthesia assessment note. S/P laparoscopic cholecystectomy under GA. POD# 1. Has sandhya stable in ICU. will be transferred to telemetry. Pat seen and examined. No post anesthesia complications, Signed off.
[2016-09-04] MEDS: BACITRACIN 30 GM TUBE TOPICAL OINTMENT TP SCH ×2 (15:04→15:07)
--- NOTE | 2016-09-04 15:45 | PN ---
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, Physician - Current Medication List Current Medications: Active Medications Acetaminophen (Tylenol -) 650 mg PO Q4H PRN PRN Reason: FEVER > 101 Anastrozole (Arimidex -) 1 mg PO DAILY [facility] Last Admin: 09/04/16 10:01 Dose: 1 mg Bacitracin (Bacitracin -) 1 applic TP DAILY [facility] Last Admin: 09/04/16 15:07 Dose: 1 applic Clonazepam (Klonopin -) 0.5 mg PO TID [facility] Last Admin: 09/04/16 15:04 Dose: 0.5 mg Clotrimazole (Lotrimin 1% Cream -) 1 applic TP BID [facility] Last Admin: 09/04/16 15:08 Dose: Not Given Donepezil HCl (Aricept -) 10 mg PO HS [facility] Last Admin: 09/03/16 22:35 Dose: 10 mg Escitalopram Oxalate (Lexapro -) 20 mg PO DAILY [facility] Last Admin: 09/04/16 10:02 Dose: 20 mg Furosemide (Lasix -) 20 mg PO DAILY [facility] Last Admin: 09/04/16 10:02 Dose: 20 mg Heparin Sodium (Porcine) (Heparin -) 5,000 unit IVPUSH PRN PRN PRN Reason: Heparin Heparin Sodium (Porcine) (Heparin -) 1,000 unit IVPUSH PRN PRN PRN Reason: Heparin Heparin Sodium (Porcine) (Heparin -) 5,000 unit IVPUSH PRN PRN PRN Reason: Heparin Hydromorphone HCl (Dilaudid Injection -) 0.5 mg IVPUSH Q4H PRN PRN Reason: PAIN Last Admin: 09/03/16 22:43 Dose: 0.5 mg Heparin Sodium (Porcine) 25, (000 unit/ Sodium Chloride) 500 mls @ 20 mls/hr IV TITR [facility]; 1,000 UNIT/HR PRN Reason: Protocol Last Titration: 09/04/16 14:43 Dose: 0 unit/hr Levofloxacin (Levaquin 500 Mg Premixed Ivpb -) 100 mls @ 100 mls/hr IVPB DAILY [facility] Last Admin: 09/04/16 10:04 Dose: 100 mls/hr Lisinopril (Prinivil) 2.5 mg PO DAILY [facility] Last Admin: 09/04/16 10:03 Dose: 2.5 mg Metoclopramide HCl (Reglan Injection -) 10 mg IVPB Q8H-IV [facility] Last Admin: 09/04/16 11:44 Dose: 10 mg Metoprolol Tartrate (Lopressor -) 25 mg PO BID [facility] Last Admin: 09/04/16 10:03 Dose: 25 mg Pantoprazole Sodium (Protonix -) 40 mg PO DAILY [facility] Last Admin: 09/04/16 10:03 Dose: 40 mg Polyethylene Glycol (Miralax (For Daily Use) -) 17 gm PO DAILY [facility] Last Admin: 09/04/16 11:44 Dose: 17 grams Ursodiol (Actigal -) 300 mg PO BID [facility] Last Admin: 09/04/16 11:37 Dose: 300 mg Valproate Sodium (Depakene -) 250 mg PO BID [facility] Last Admin: 09/04/16 10:02 Dose: 250 mg - Objective Vital Signs: Vital Signs Temperature 98.7 F 09/04/16 14:00 Pulse Rate 100 H 09/04/16 14:00 Respiratory Rate 18 09/04/16 14:00 Blood Pressure 120/69 09/04/16 14:00 O2 Sat by Pulse Oximetry (%) 97 09/04/16 12:19 Labs: CBC, BMP 09/04/16 05:20 09/04/16 05:20 INR, PTT INR 1.14 (0.82-1.09) 08/30/16 06:05 Problem List - Problems (1) Cholelithiasis Code(s): K80.20 - CALCULUS OF GALLBLADDER W/O CHOLECYSTITIS W/O OBSTRUCTION Qualifiers: Cholelithiasis location: gallbladder and bile duct Biliary obstruction : with biliary obstruction (2) Abnormal liver function Code(s): K76.89 - OTHER SPECIFIED DISEASES OF LIVER (3) Dilated bile duct Code(s): K83.8 - OTHER SPECIFIED DISEASES OF BILIARY TRACT Assessment/Plan S/P Laparoscopc cholecystectomy. Patient is stable. Medical management.
[2016-09-04] MEDS ORDERED: HEPARIN NA (PORCINE) 5,000 UNITS/ML 1ML VIAL IVPUSH PRN ×4 (16:08)
[2016-09-04] MEDS ORDERED: HEPARIN - 25,000 UNIT in SODIUM CHLORIDE 495 ML IV SCH (16:08)
[2016-09-04] MEDS ORDERED: ACETAMINOPHEN 325 MG TABLET (FP) PO PRN (16:08)
[2016-09-04] MEDS ORDERED: HYDROmorphone HCL CARPU-JECT 1 MG/1 ML DISP.SYRIN IVPUSH PRN (16:08)
[2016-09-04] MEDS: DONEPEZIL HCL 10 MG TABLET (FP) PO SCH (21:39)
[2016-09-05] MEDS: METOCLOPRAMIDE HCL INJECTION 10 MG/2 ML VIAL IVPB SCH ×3 (03:06→18:00)
[2016-09-05] MEDS: clonazePAM 0.5 MG TABLET PO SCH ×3 (06:08→22:39)
[2016-09-05 07:55] LABS: MCH 31.8 pg (25.7-33.7); MCHC 33.7 g/dl (32.0-36.0); MEAN CELL VOLUME 94.6 fl (80-96); MEAN PLT VOLUME 8.5 fl (7.5-11.1); PLATELET COUNT 320 K/MM3 (134-434); RDW 14.4 % (11.6-15.6); WHITE BLOOD COUNT 7.4 K/mm3 (4.0-10.0)
[2016-09-05] MEDS ORDERED: PT OWN MED DRAWER 7, Y5N ONE (08:38)
--- NOTE | 2016-09-05 08:39 | PN ---
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 (short form) - Note 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: Chief Complaint: Events noted, notes reviewed, transferred to telemetry, awake and alert, remains confused and disoriented but baseline according to the daughter who is at the bedside, post lap cholecystectomy day # 2, remains in atrial fibrillation rate controlled and with periods of asymptomatic bradycardia History of Present Illness: seen and examined in the ICU. Events noted, notes reviewed, transferred to telemetry, awake and alert, remains confused and disoriented but baseline according to the daughter who is at the bedside, post lap cholecystectomy day # 2, remains in atrial fibrillation rate controlled and with periods of asymptomatic bradycardia Echocardiography performed 08/23/2016 revealed normal LV size and function, with mild AR and MR - Current Medication List Current Medications Acetaminophen (Tylenol -) 650 mg PO Q4H PRN PRN Reason: FEVER > 101 Anastrozole (Arimidex -) 1 mg PO DAILY [facility] Bacitracin (Bacitracin -) 1 applic TP DAILY [facility] Clonazepam (Klonopin -) 0.5 mg PO TID [facility] Last Admin: 09/05/16 06:08 Dose: 0.5 mg Clotrimazole (Lotrimin 1% Cream -) 1 applic TP BID [facility] Last Admin: 09/04/16 21:39 Dose: 1 applic Donepezil HCl (Aricept -) 10 mg PO HS [facility] Last Admin: 09/04/16 21:39 Dose: 10 mg Escitalopram Oxalate (Lexapro -) 20 mg PO DAILY [facility] Furosemide (Lasix -) 20 mg PO DAILY [facility] Heparin Sodium (Porcine) (Heparin -) 1,000 unit IVPUSH PRN PRN PRN Reason: Heparin Heparin Sodium (Porcine) (Heparin -) 5,000 unit IVPUSH PRN PRN PRN Reason: Heparin Hydromorphone HCl (Dilaudid Injection -) 0.5 mg IVPUSH Q4H PRN PRN Reason: PAIN Levofloxacin (Levaquin 500 Mg Premixed Ivpb -) 100 mls @ 100 mls/hr IVPB DAILY [facility] Heparin Sodium (Porcine) 25, (000 unit/ Sodium Chloride) 500 mls @ 20 mls/hr IV TITR [facility]; 1,000 UNIT/HR PRN Reason: Protocol Last Admin: 09/04/16 21:38 Dose: 19 mls/hr Lisinopril (Prinivil) 2.5 mg PO DAILY [facility] Metoclopramide HCl (Reglan Injection -) 10 mg IVPB Q8H-IV [facility]S [facility] Last Admin: 09/05/16 03:06 Dose: 10 mg Metoprolol Tartrate (Lopressor -) 25 mg PO BID [facility] Last Admin: 09/04/16 21:39 Dose: 25 mg Pantoprazole Sodium (Protonix -) 40 mg PO DAILY [facility] Polyethylene Glycol (Miralax (For Daily Use) -) 17 gm PO DAILY [facility] Ursodiol (Actigal -) 300 mg PO BID [facility] Last Admin: 09/04/16 21:38 Dose: 300 mg Valproate Sodium (Depakene -) 250 mg PO BID [facility] Last Admin: 09/04/16 21:39 Dose: 250 mg Review of Systems: 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 Post lap cholecystectomy for cholecystitis/cholangitis, POD #2 2. CAD angina pectoris post demand ischemic injury 3. Diastolic LV dysfunction with class I NYHA classification LV failure, compensated 4. Persistent atrial fibrillation rate controlled off of NOAC's on Heparin therapy 5. Toxic metabolic encephelopathy referable to sepsis with underlying dementia, resolved 6. Acute cholecystitis/cholangitis with choledocholithiasis with CBD stricture post ERCP, extraction of CBD stones and stent placement 7. Hyperlipidemia 8. History of breast carcinoma PLAN: 1. Continue Heparin drip and resume Xarelto once cleared surgically 2. Continue Lopressor 3. Continue Lisinopril 4. Continue Lasix 5. Continue Lipitor 6. As outlined in yesterday's not consider D/C Actigal post cholecystectomy Skip Childs MD
[2016-09-05] MEDS: HEPARIN NA (PORCINE) 5,000 UNITS/ML 1ML VIAL IVPUSH PRN (09:00)
[2016-09-05] MEDS: LEVOFLOXACIN 500 MG IVPB 100 ML IVPB SCH (09:02)
[2016-09-05] MEDS: ANASTROZOLE 1 MG TABLET PO SCH (10:09)
[2016-09-05] MEDS: URSODIOL 300 MG CAPSULE PO SCH ×2 (10:09→22:39)
[2016-09-05] MEDS: VALPROATE SODIUM 250 MG/5 ML UNIT DOSE CUP PO SCH ×2 (10:10→22:39)
[2016-09-05] MEDS: LISINOPRIL 5 MG TABLET (FP) PO SCH (10:10)
[2016-09-05] MEDS: FUROSEMIDE 20 MG TABLET (FP) PO SCH (10:10)
[2016-09-05] MEDS: PANTOPRAZOLE 40 MG TABLET (FP) PO SCH (10:10)
[2016-09-05] MEDS: ESCITALOPRAM OXALATE 20 MG TABLET (FP) PO SCH (10:11)
[2016-09-05] MEDS: POLYETHYLENE GLYCOL 3350 119 GM BTL PO SCH (10:11)
[2016-09-05] MEDS: METOPROLOL TARTRATE 25 MG TABLET (FP) PO SCH ×2 (10:11→22:39)
--- NOTE | 2016-09-05 12:03 | PN ---
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 (short form) - Note 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: Pt seen/ examined / chart reviewed feels ok. daughter at bedside afebrile Vital Signs Temp 98.0 F 09/05/16 10:00 Pulse 80 09/05/16 10:00 Resp 20 09/05/16 10:00 BP 106/62 09/05/16 10:00 Pulse Ox 95 09/05/16 10:00 Intake & Output 09/04/16 09/05/16 09/05/16 22:59 11:59 23:59 Intake Total Output Total Balance Intake: IV Heparin - 25,000 Unit In Normal Saline - 495 ml @ 1,000 UNIT/HR 20 mls/hr IV TITR [facility] Rx#: [id number] Heparin - 25,000 Unit In Normal Saline - 495 ml @ 1,000 UNIT/HR 20 mls/hr IV TITR [facility] Rx#: [id number] S/L IVPB Oral Output: Urine Hicks Other: Voiding Method # Unmeasured Voids Hicks Active Medications Acetaminophen (Tylenol -) 650 mg PO Q4H PRN PRN Reason: FEVER > 101 Anastrozole (Arimidex -) 1 mg PO DAILY [facility] Last Admin: 09/05/16 10:09 Dose: 1 mg Bacitracin (Bacitracin -) 1 applic TP DAILY [facility] Clonazepam (Klonopin -) 0.5 mg PO TID [facility] Last Admin: 09/05/16 06:08 Dose: 0.5 mg Clotrimazole (Lotrimin 1% Cream -) 1 applic TP BID [facility] Last Admin: 09/04/16 21:39 Dose: 1 applic Donepezil HCl (Aricept -) 10 mg PO HS [facility] Last Admin: 09/04/16 21:39 Dose: 10 mg Escitalopram Oxalate (Lexapro -) 20 mg PO DAILY [facility] Last Admin: 09/05/16 10:11 Dose: 20 mg Furosemide (Lasix -) 20 mg PO DAILY [facility] Last Admin: 09/05/16 10:10 Dose: 20 mg Heparin Sodium (Porcine) (Heparin -) 1,000 unit IVPUSH PRN PRN PRN Reason: Heparin Heparin Sodium (Porcine) (Heparin -) 5,000 unit IVPUSH PRN PRN PRN Reason: Heparin Last Admin: 09/05/16 09:00 Dose: 5,000 unit Hydromorphone HCl (Dilaudid Injection -) 0.5 mg IVPUSH Q4H PRN PRN Reason: PAIN Levofloxacin (Levaquin 500 Mg Premixed Ivpb -) 100 mls @ 100 mls/hr IVPB DAILY [facility] Last Admin: 09/05/16 09:02 Dose: 100 mls/hr Heparin Sodium (Porcine) 25, (000 unit/ Sodium Chloride) 500 mls @ 20 mls/hr IV TITR [facility]; 1,000 UNIT/HR PRN Reason: Protocol Last Titration: 09/05/16 09:03 Dose: 1,100 unit/hr Lisinopril (Prinivil) 2.5 mg PO DAILY [facility] Last Admin: 09/05/16 10:10 Dose: 2.5 mg Metoclopramide HCl (Reglan Injection -) 10 mg IVPB Q8H-IV [facility] Last Admin: 09/05/16 09:02 Dose: 10 mg Metoprolol Tartrate (Lopressor -) 25 mg PO BID [facility] Last Admin: 09/05/16 10:11 Dose: 25 mg Pantoprazole Sodium (Protonix -) 40 mg PO DAILY [facility] Last Admin: 09/05/16 10:10 Dose: 40 mg Polyethylene Glycol (Miralax (For Daily Use) -) 17 gm PO DAILY [facility] Last Admin: 09/05/16 10:11 Dose: 17 gm Ursodiol (Actigal -) 300 mg PO BID [facility] Last Admin: 09/05/16 10:09 Dose: 300 mg Valproate Sodium (Depakene -) 250 mg PO BID [facility] Last Admin: 09/05/16 10:10 Dose: 250 mg CBC, BMP 09/05/16 06:30 09/04/16 05:20 PHYSICAL EXAMINATION: Constitutional: Yes: No Distress Cardiovascular: Yes: Pulse Irregular Respiratory: Yes: Diminished Gastrointestinal: Yes: Normal Bowel Sounds, Soft. No: Distention, Tenderness Edema: No ASSESSMENT & PLAN: - s/p cholecystectomy/ ercp - on i/v abx - started on heparin drip - will switch when cleared by -d/c actigel-- gi to follow - if continue to improve- will consider d/c in 1-2 days- off abx - discussed with pts daughter again today Problem List - Problems (1) Sepsis Code(s): A41.9 - SEPSIS, UNSPECIFIED ORGANISM Qualifiers: Sepsis type: sepsis due to unspecified organism Qualified Code(s): A41.9 - Sepsis, unspecified organism (2) Atrial fibrillation Code(s): I48.91 - UNSPECIFIED ATRIAL FIBRILLATION Qualifiers: Atrial fibrillation type: persistent Qualified Code(s): I48.1 - Persistent atrial fibrillation (3) Cholecystitis Code(s): K81.9 - CHOLECYSTITIS, UNSPECIFIED (4) Coronary artery disease Code(s): I25.10 - ATHSCL HEART DISEASE OF [place] CORONARY ARTERY W/O ANG PCTRS Qualifiers: Coronary Disease-Associated Artery/Lesion type: [place] artery [place] vs. transplanted heart: [place] heart Associated angina: without angina Qualified Code(s): I25.10 - Atherosclerotic heart disease of [place] coronary artery without angina pectoris (5) Dementia Code(s): F03.90 - UNSPECIFIED DEMENTIA WITHOUT BEHAVIORAL DISTURBANCE Qualifiers: Dementia type: unspecified type Dementia behavioral disturbance: without behavioral disturbance Qualified Code(s): F03.90 - Unspecified dementia without behavioral disturbance Problem List - Problems (1) Sepsis Code(s): A41.9 - SEPSIS, UNSPECIFIED ORGANISM Qualifiers: Sepsis type: sepsis due to unspecified organism Qualified Code(s): A41.9 - Sepsis, unspecified organism (2) Atrial fibrillation Code(s): I48.91 - UNSPECIFIED ATRIAL FIBRILLATION Qualifiers: Atrial fibrillation type: persistent Qualified Code(s): I48.1 - Persistent atrial fibrillation (3) Cholecystitis Code(s): K81.9 - CHOLECYSTITIS, UNSPECIFIED (4) Coronary artery disease Code(s): I25.10 - ATHSCL HEART DISEASE OF [place] CORONARY ARTERY W/O ANG PCTRS Qualifiers: Coronary Disease-Associated Artery/Lesion type: [place] artery [place] vs. transplanted heart: [place] heart Associated angina: without angina Qualified Code(s): I25.10 - Atherosclerotic heart disease of [place] coronary artery without angina pectoris (5) Dementia Code(s): F03.90 - UNSPECIFIED DEMENTIA WITHOUT BEHAVIORAL DISTURBANCE Qualifiers: Dementia type: unspecified type Dementia behavioral disturbance: without behavioral disturbance Qualified Code(s): F03.90 - Unspecified dementia without behavioral disturbance
--- NOTE | 2016-09-05 12:31 | EKG ---
Test Reason : Blood Pressure : / mmHG Vent. Rate : 117 BPM Atrial Rate : 113 BPM P-R Int : 000 ms QRS Dur : 092 ms QT Int : 346 ms P-R-T Axes : 000 016 019 degrees QTc Int : 482 ms ATRIAL FIBRILLATION LEFT AXIS DEVIATION PROLONGED QT WHEN COMPARED WITH ECG OF 20-AUG-2016 17:33, Confirmed by PARMINDER IBARRA MD ([id number]) on 09/05/2016 12:31:35 PM Referred By: Confirmed By:PARMINDER IBARRA MD
[2016-09-05] MEDS: CLOTRIMAZOLE 1% CREAM 15 GM TUBE TP SCH ×2 (12:49→22:39)
[2016-09-05] MEDS: BACITRACIN 30 GM TUBE TOPICAL OINTMENT TP SCH (12:49)
[2016-09-05] MEDS: METOPROLOL TARTRATE 5 MG/5 ML VIAL IVPUSH ONE (20:23)
[2016-09-05] MEDS: DONEPEZIL HCL 10 MG TABLET (FP) PO SCH (22:39)
[2016-09-06] MEDS: HEPARIN NA (PORCINE) 5,000 UNITS/ML 1ML VIAL IVPUSH PRN (01:03)
[2016-09-06] MEDS: METOCLOPRAMIDE HCL INJECTION 10 MG/2 ML VIAL IVPB SCH (01:04)
[2016-09-06] MEDS: HEPARIN - 25,000 UNIT in SODIUM CHLORIDE 495 ML IV SCH (01:05)
[2016-09-06 06:36] LABS: MCH 31.7 pg (25.7-33.7); MCHC 33.3 g/dl (32.0-36.0); MEAN CELL VOLUME 95.3 fl (80-96); MEAN PLT VOLUME 8.3 fl (7.5-11.1); PLATELET COUNT 354 K/MM3 (134-434); RDW 14.4 % (11.6-15.6); WHITE BLOOD COUNT 7.6 K/mm3 (4.0-10.0)
[2016-09-06] MEDS: clonazePAM 0.5 MG TABLET PO SCH (06:36)
--- NOTE | 2016-09-06 09:15 | DS ---
Physical Examination Vital Signs: Vital Signs Temperature 97.5 F L 09/06/16 06:00 Pulse Rate 85 09/06/16 06:00 Respiratory Rate 18 09/06/16 06:00 Blood Pressure 143/89 09/06/16 06:00 O2 Sat by Pulse Oximetry (%) 95 09/05/16 21:00 Labs: CBC, BMP 09/06/16 05:25 09/04/16 05:20 <Sasha Paniagua - Last Filed: 09/06/16 09:15> Vital Signs: Vital Signs Temperature 97.5 F L 09/06/16 06:00 Pulse Rate 85 09/06/16 06:00 Respiratory Rate 18 09/06/16 06:00 Blood Pressure 143/89 09/06/16 06:00 O2 Sat by Pulse Oximetry (%) 95 09/05/16 21:00 Findings/Remarks: Awake and comfortable. Eating well. Denies pain. Daughter at bedside. Constitutional: Yes: No Distress, Calm Neck: Yes: Supple Cardiovascular: Yes: Pulse Irregular Respiratory: Yes: CTA Bilaterally Gastrointestinal: Yes: Soft Edema: No Labs: CBC, BMP 09/06/16 05:25 09/04/16 05:20 <Lucila Arzate - Last Filed: 09/06/16 10:20> Discharge Summary Reason For Visit: SEPSIS Current Active Problems Abnormal liver enzymes (Acute) Abnormal liver function (Acute) Acute cholangitis (Acute) Anticoagulation adequate with anticoagulant therapy (Acute) Atrial fibrillation (Acute) Cholecystitis (Acute) Choledocholithiasis (Acute) Cholelithiasis (Acute) Coronary artery disease (Acute) Demand ischemia (Acute) Dementia (Acute) Diastolic dysfunction (Acute) Dilated bile duct (Acute) Hyperlipidemia (Acute) Sepsis (Acute) - Home Medications Comprehensive Discharge Medication List: Ambulatory Orders Acetaminophen [Tylenol .Regular Strength -] 650 mg PO Q8H 08/20/16 Anastrozole [Arimidex -] 1 mg PO DAILY 08/20/16 Atorvastatin Ca [Lipitor] 10 mg PO HS 08/20/16 Clonazepam [KlonoPIN] 0.5 mg PO TID 08/20/16 Clotrimazole [Lotrimin -] 1 applic TP BID 08/20/16 Digoxin [Digitek] 125 mcg PO ASDIR 08/20/16 Divalproex [Depakote -] 250 mg PO BID 08/20/16 Donepezil HCl [Aricept -] 10 mg PO HS 08/20/16 Escitalopram Oxalate [Lexapro -] 20 mg PO DAILY 08/20/16 Isosorbide Mononitrate [Isosorbide Mononitrate ER] 30 mg PO DAILY 08/20/16 Lisinopril [Zestril] 2.5 mg PO DAILY 08/20/16 Melatonin 2 mg PO HS 08/20/16 Metoprolol Tartrate [Lopressor -] 50 mg PO BID 08/20/16 Multivitamin with Minerals [Icaps Plus] 1 each PO DAILY 08/20/16 Rivaroxaban [Xarelto -] 20 mg PO DAILY 08/20/16 Bacitracin - [Bacitracin Topical Ointment -] 1 applic TP DAILY tube 09/06/16 Furosemide [Lasix -] 20 mg PO DAILY tablet 09/06/16 Metoprolol Tartrate [Lopressor -] 25 mg PO BID tablet 09/06/16 Pantoprazole Sodium [Protonix -] 40 mg PO DAILY 09/06/16 Polyethylene Glycol 3350 [Gavilax] 17 gm PO DAILY PRN #0 09/06/16 <Sasha Paniagua - Last Filed: 09/06/16 09:15> Current Active Problems Abnormal liver enzymes (Acute) Abnormal liver function (Acute) Acute cholangitis (Acute) Anticoagulation adequate with anticoagulant therapy (Acute) Atrial fibrillation (Acute) Cholecystitis (Acute) Choledocholithiasis (Acute) Cholelithiasis (Acute) Coronary artery disease (Acute) Demand ischemia (Acute) Dementia (Acute) Diastolic dysfunction (Acute) Dilated bile duct (Acute) Hyperlipidemia (Acute) Sepsis (Acute) Hospital Course: The patient is a 75 year old female, with a significant past medical history of HTN, hyperlipidemia, atrial fibrillation (on Xarelto), coronary artery disease, CHF (on Lasix and Digoxin), left breast CA s/p left sided mastectomy ( approximately 3 years ago) and dementia, who presents to the emergency department via EMS from [facility] with altered mental status. Patient found to have biliary colangitis. treated with antibiotics. GI and surgical consults were taken. Patient underwent ERCP with removal of stones and stent placement followed by cholecystectomy. Patient now doing well. Afebrile. Will remove eckert catheter today for widing trial. Overall stable for discharge. Back to senior living. Discussed in details with patient's daughter who agrees with the plan. Meds reconciled. Discussed with nursing staff also. Documentation prepared by Lucila Arzate, acting as a medical driver for Sasha Paniagua MD. - Home Medications Comprehensive Discharge Medication List: Ambulatory Orders Acetaminophen [Tylenol .Regular Strength -] 650 mg PO Q8H 08/20/16 Anastrozole [Arimidex -] 1 mg PO DAILY 08/20/16 Atorvastatin Ca [Lipitor] 10 mg PO HS 08/20/16 Clonazepam [KlonoPIN] 0.5 mg PO TID 08/20/16 Clotrimazole [Lotrimin -] 1 applic TP BID 08/20/16 Digoxin [Digitek] 125 mcg PO ASDIR 08/20/16 Divalproex [Depakote -] 250 mg PO BID 08/20/16 Donepezil HCl [Aricept -] 10 mg PO HS 08/20/16 Escitalopram Oxalate [Lexapro -] 20 mg PO DAILY 08/20/16 Isosorbide Mononitrate [Isosorbide Mononitrate ER] 30 mg PO DAILY 08/20/16 Lisinopril [Zestril] 2.5 mg PO DAILY 08/20/16 Melatonin 2 mg PO HS 08/20/16 Metoprolol Tartrate [Lopressor -] 50 mg PO BID 08/20/16 Multivitamin with Minerals [Icaps Plus] 1 each PO DAILY 08/20/16 Rivaroxaban [Xarelto -] 20 mg PO DAILY 08/20/16 Bacitracin - [Bacitracin Topical Ointment -] 1 applic TP DAILY tube 09/06/16 Furosemide [Lasix -] 20 mg PO DAILY tablet 09/06/16 Metoprolol Tartrate [Lopressor -] 25 mg PO BID tablet 09/06/16 Pantoprazole Sodium [Protonix -] 40 mg PO DAILY 09/06/16 Polyethylene Glycol 3350 [Gavilax] 17 gm PO DAILY PRN #0 09/06/16 <Lucila Arzate - Last Filed: 09/06/16 10:20> - Instructions Referrals: Alexander Urban [Primary Care Provider] -
--- NOTE | 2016-09-06 09:17 | PN ---
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, Physician History of Present Illness: Tolerating full diet post lap cholecystectomy. - Current Medication List Current Medications: Active Medications Acetaminophen (Tylenol -) 650 mg PO Q4H PRN PRN Reason: FEVER > 101 Anastrozole (Arimidex -) 1 mg PO DAILY [facility] Last Admin: 09/05/16 10:09 Dose: 1 mg Bacitracin (Bacitracin -) 1 applic TP DAILY [facility] Last Admin: 09/05/16 12:49 Dose: Not Given Clonazepam (Klonopin -) 0.5 mg PO TID [facility] Last Admin: 09/06/16 06:36 Dose: 0.5 mg Clotrimazole (Lotrimin 1% Cream -) 1 applic TP BID [facility] Last Admin: 09/05/16 22:39 Dose: Not Given Donepezil HCl (Aricept -) 10 mg PO HS [facility] Last Admin: 09/05/16 22:39 Dose: 10 mg Escitalopram Oxalate (Lexapro -) 20 mg PO DAILY [facility] Last Admin: 09/05/16 10:11 Dose: 20 mg Furosemide (Lasix -) 20 mg PO DAILY [facility] Last Admin: 09/05/16 10:10 Dose: 20 mg Heparin Sodium (Porcine) (Heparin -) 1,000 unit IVPUSH PRN PRN PRN Reason: Heparin Heparin Sodium (Porcine) (Heparin -) 5,000 unit IVPUSH PRN PRN PRN Reason: Heparin Last Admin: 09/06/16 01:03 Dose: 5,000 unit Hydromorphone HCl (Dilaudid Injection -) 0.5 mg IVPUSH Q4H PRN PRN Reason: PAIN Levofloxacin (Levaquin 500 Mg Premixed Ivpb -) 100 mls @ 100 mls/hr IVPB DAILY [facility] Last Admin: 09/05/16 09:02 Dose: 100 mls/hr Heparin Sodium (Porcine) 25, (000 unit/ Sodium Chloride) 500 mls @ 20 mls/hr IV TITR [facility]; 1,000 UNIT/HR PRN Reason: Protocol Last Titration: 09/06/16 08:22 Dose: 650 unit/hr Lisinopril (Prinivil) 2.5 mg PO DAILY [facility] Last Admin: 09/05/16 10:10 Dose: 2.5 mg Metoclopramide HCl (Reglan Injection -) 10 mg IVPB Q8H-IV [facility] Last Admin: 09/06/16 01:04 Dose: 10 mg Metoprolol Tartrate (Lopressor -) 25 mg PO BID [facility] Last Admin: 09/05/16 22:39 Dose: 25 mg Pantoprazole Sodium (Protonix -) 40 mg PO DAILY [facility] Last Admin: 09/05/16 10:10 Dose: 40 mg Polyethylene Glycol (Miralax (For Daily Use) -) 17 gm PO DAILY [facility] Last Admin: 09/05/16 10:11 Dose: 17 gm Ursodiol (Actigal -) 300 mg PO BID [facility] Last Admin: 09/05/16 22:39 Dose: 300 mg Valproate Sodium (Depakene -) 250 mg PO BID [facility] Last Admin: 09/05/16 22:39 Dose: 250 mg - Objective Vital Signs: Vital Signs Temperature 97.5 F L 09/06/16 06:00 Pulse Rate 85 09/06/16 06:00 Respiratory Rate 18 09/06/16 06:00 Blood Pressure 143/89 09/06/16 06:00 O2 Sat by Pulse Oximetry (%) 95 09/05/16 21:00 Constitutional: Yes: No Distress, Calm Neck: Yes: Supple Cardiovascular: Yes: Pulse Irregular Respiratory: Yes: Regular, Diminished Gastrointestinal: Yes: Normal Bowel Sounds, Soft Edema: No Labs: CBC, BMP 09/06/16 05:25 09/04/16 05:20 INR, PTT INR 1.14 (0.82-1.09) 08/30/16 06:05 - ....Imaging EKG: Report Reviewed (Tele: Rate-controlled atrial fibrillation) Problem List - Problems (1) Atrial fibrillation Code(s): I48.91 - UNSPECIFIED ATRIAL FIBRILLATION Qualifiers: Atrial fibrillation type: persistent Qualified Code(s): I48.1 - Persistent atrial fibrillation (2) Diastolic dysfunction Code(s): I51.9 - HEART DISEASE, UNSPECIFIED (3) Hyperlipidemia Code(s): E78.5 - HYPERLIPIDEMIA, UNSPECIFIED Qualifiers: Hyperlipidemia type: pure hypercholesterolemia Qualified Code(s): E78.0 - Pure hypercholesterolemia (4) Dementia Code(s): F03.90 - UNSPECIFIED DEMENTIA WITHOUT BEHAVIORAL DISTURBANCE Qualifiers: Dementia type: unspecified type Dementia behavioral disturbance: without behavioral disturbance Qualified Code(s): F03.90 - Unspecified dementia without behavioral disturbance (5) Demand ischemia Code(s): I24.8 - OTHER FORMS OF ACUTE ISCHEMIC HEART DISEASE (6) Coronary artery disease Code(s): I25.10 - ATHSCL HEART DISEASE OF [place] CORONARY ARTERY W/O ANG PCTRS Qualifiers: Coronary Disease-Associated Artery/Lesion type: [place] artery [place] vs. transplanted heart: [place] heart Associated angina: without angina Qualified Code(s): I25.10 - Atherosclerotic heart disease of [place] coronary artery without angina pectoris (7) Abnormal liver enzymes Code(s): R74.8 - ABNORMAL LEVELS OF OTHER SERUM ENZYMES (8) Choledocholithiasis Code(s): K80.50 - CALCULUS OF BILE DUCT W/O CHOLANGITIS OR CHOLECYST W/O OBST Assessment/Plan Echo 08/23/2016 Echo: Normal LV size and fxn, mild AR, MR 1. Toxic metabolic encephelopathy referable to sepsis with underlying dementia resolved 2. Leukocytosis, demand ischemia, elevated LFT c/w acute cholecystitis/ cholangitis with choledocholithiasis with CBD stricture s/p ERCP, extraction of CBD stones and placement of stent, post lap cholecystectomy POD#3 3. Persistent afib with tachy-sharon episodes off NOAC and Lovenox silke-procedure 4. CAD demand ischemia referable to #1 5. Diastolic dysfxn with elevated biomarkers 6. Hyperlipidemia 7. H/o breast ca P:1. Complete abx course, change heparin gtt to Xarelto as post-op hemostasis has been achieved 2. Continue Lopressor 25 bid, lisinopril 2.5 qd, Lasix 20 qd, and restart Lipitor 10 qhs 3. D/c planning to NH with f/u in office
[2016-09-06] MEDS: LEVOFLOXACIN 500 MG IVPB 100 ML IVPB SCH (09:40)
[2016-09-06] MEDS: LISINOPRIL 5 MG TABLET (FP) PO SCH (09:40)
[2016-09-06] MEDS: FUROSEMIDE 20 MG TABLET (FP) PO SCH (09:41)
[2016-09-06] MEDS: ESCITALOPRAM OXALATE 20 MG TABLET (FP) PO SCH (09:41)
[2016-09-06] MEDS: METOPROLOL TARTRATE 25 MG TABLET (FP) PO SCH (09:41)
[2016-09-06] MEDS: PANTOPRAZOLE 40 MG TABLET (FP) PO SCH (09:41)
[2016-09-06] MEDS: CLOTRIMAZOLE 1% CREAM 15 GM TUBE TP SCH (09:41)
[2016-09-06] MEDS: BACITRACIN 30 GM TUBE TOPICAL OINTMENT TP SCH (09:42)
[2016-09-06] MEDS: VALPROATE SODIUM 250 MG/5 ML UNIT DOSE CUP PO SCH (09:42)
[2016-09-06] MEDS: URSODIOL 300 MG CAPSULE PO SCH (09:42)
[2016-09-06] MEDS: ANASTROZOLE 1 MG TABLET PO SCH (09:42)
[2016-09-06] MEDS: POLYETHYLENE GLYCOL 3350 119 GM BTL PO SCH (09:43)
[2016-09-06 09:44] VITALS: BP 136/68; PULSE 89; TEMP 99.6
[2016-09-06] MEDS ORDERED: RIVAROXABAN 20 MG TABLET PO SCH (10:00)
--- NOTE | 2016-09-06 15:29 | OP ---
DATE OF OPERATION: 09/03/2016 PREOPERATIVE DIAGNOSIS: Cholelithiasis with cholecystitis and cholangitis. POSTOPERATIVE DIAGNOSIS: Cholelithiasis with cholecystitis and cholangitis. OPERATIVE PROCEDURE: Laparoscopic cholecystectomy. SURGEON: Tiffnay Catherine M.D. [employer]Y [facility] ROOM ATTENDANT: Yani Pro ANESTHESIA: General anesthesia. ANESTHESIOLOGIST: Carlitos Darnell M.D. OPERATIVE DESCRIPTION: This 75-year-old woman was admitted with cholangitis and lactic acidosis secondary to the obstructing stone in the common bile duct as well as cholelithiasis and cholecystitis. Patient was treated on antibiotics. She was stabilized, and underwent ERCP, sphincterotomy, extraction of stone, and placement of stent in the common bile duct about 3 days ago. Patient was brought in for laparoscopic cholecystectomy. Consent was obtained. Risks, benefits, and complications have been discussed with the family and patient. Patient had been on antibiotics. Patient was brought to the operating room, where general anesthesia was administered. Patient was prepped and draped. Incision was made in the infraumbilical portion of the umbilicus. This was deepened inside the skin, subcutaneous tissue, and the linea alba. Two stay sutures were obtained of 2-0 Vicryl on either side of the midline in the abdomen and filled with carbon dioxide at 6 L per minute after interruption of a 10-mm Quevedo trocar into the abdominal cavity. A 5-mm 30-degree camera was introduced into the abdominal cavity. Under direct vision, two 5-mm trocars were inserted in the right upper quadrant of the abdomen, one along the midline, and another laterally, 2-3 fingerbreadths below the costal margin. A 3rd trocar 5 mm was inserted in the midline in subxiphoid area. This was noted into the abdominal cavity to the right of the first round ligament. The gallbladder was then visualized and grasped at the fundus with a grasper, through the lateral 5-mm trocar. The gallbladder was retracteded cephalad and laterally, thus exposing the infundibulum of the gallbladder. The infundibulum of the gallbladder was then grasped with another grasper, through the midial 5-mm trocar. The Endoshear was introduced through the subxiphoid port. The peritoneal reflection around the cystic duct was incised, and the infundibulum was dissected circumferentially. The dissection proceeded , with sharp and blunt dissection, to expose thecystic duct and cystic artery. The cystic duct was then divided between clips. The cystic artery was likewise divided between clips. The peritoneal reflection on either side of the gallbladder was then incised, using electrocautery as well as the Endoshears. The gallbladder was dissected off the gallbladder bed all the way to the fundus of the gallbladder using electrocautery, blunt dissection, as well as sharp dissection, with the Endoshear. The cholecystectomy was thus accomplished. An Endocatch was then introduced through the umbilical port, the camera being switched to the subxiphoid port. Gallbladder was placed in the Endocatch, and retrieved out of the abdominal cavity. The specimen was sent to pathology. The gallbladder fossa was cleaned, there was no bleeding, no bile leak. The instruments were then withdrawn under direct vision, the linea alba in the midline, was approximated with interrupted and [id number] 2-0 Vicryl sutures. Skin approximated with interrupted 2-0 Biosyn sutures. Dermabond was applied to all the skin edges, and 0.5% Marcaine was injected into the wound. Patient tolerated the procedure well, was extubated and sent to the recovery room in stable condition. Estimated blood loss was 5 mL. Mónica [id number] MTDD
[2016-09-06] MEDS ORDERED: ATORVASTATIN CA 10 MG TABLET (FP) PO SCH (22:00)
--- NOTE | 2016-09-08 13:22 | PATH ---
Surgical Pathology Report Patient Name: TORIN CESAR [facility]. Rec. #: [id number] /Age/Gender: 1940 (Age: 75) / F Account: [id number] Location: 4 PEDS/ADOL Taken: 09/03/2016 Received: 09/06/2016 Reported: 09/08/2016 Physicians: Tiffany Catherine M.D. Specimen(s) Received GALLBLADDER Clinical History Cholecystitis Final Diagnosis GALLBLADDER, CHOLECYSTECTOMY: ACUTE AND CHRONIC CHOLECYSTITIS, CHOLELITHIASIS. Electronically Signed Jordin Zhang M.D. Gross Description Received in formalin, labeled "gallbladder" is a 12.0 x 3.4 x 3.4 cm gallbladder with a 0.2 cm in length portion of cystic duct attached. There is a 1.2 cm greatest dimension periductal lymph node present. The outer surface is lopez-green and varies from smooth to shaggy. The lumen contains green, tenacious bile as well as 4 black, irregular choleliths averaging 1.3 cm in greatest dimension. The mucosa is green and velvety. The wall of the gallbladder averages 0.1 cm. in thickness. Meal Miller sections are submitted in 2 cassettes as follows: 1-cystic duct margin and one whole bisected lymph node; 2-school admissions representative gallbladder. 09/06/201609/06/2016
== END 2016-09-06 13:17 | DRG 853 ==
LOC: JER 15:58 → JERBED 20:04 → J4W 22:15 → J6S 08-27 18:46 → JICU 09-03 22:16 → J4S 09-04 15:51
PROVIDERS: ADMIT Internal Medicine; ATTEND Internal Medicine
PROC: 0F798DZ Dilation of Common Bile Duct with Intraluminal Device, Via Natural or Artificial Opening Endoscopic (ICD-10-PCS; 2016-08-31)
PROC: BF101ZZ Fluoroscopy of Bile Ducts using Low Osmolar Contrast (ICD-10-PCS; 2016-08-31)
PROC: 0FT44ZZ Resection of Gallbladder, Percutaneous Endoscopic Approach (ICD-10-PCS; principal; 2016-09-03 15:00)
DX: A41.9 Sepsis, unspecified organism (principal); G92 Toxic encephalopathy; K80.61 Calculus of gallbladder and bile duct with cholecystitis, unspecified, with obstruction; I48.1 Persistent atrial fibrillation; I24.8 Other forms of acute ischemic heart disease; N39.0 Urinary tract infection, site not specified; K83.0 Cholangitis; F03.90 Unspecified dementia, unspecified severity, without behavioral disturbance, psychotic disturbance, mood disturbance, and anxiety; I25.10 Atherosclerotic heart disease of native coronary artery without angina pectoris; Z79.01 Long term (current) use of anticoagulants; B96.20 Unspecified Escherichia coli [E. coli] as the cause of diseases classified elsewhere; I11.0 Hypertensive heart disease with heart failure; I50.9 Heart failure, unspecified; Z66 Do not resuscitate; D72.829 Elevated white blood cell count, unspecified
CPT/HCPCS: 36415; 70450-TC; 71010-TC; 74182-TC; 74330-TC; 76000-TC; 76705-TC; 78226-TC; 80048; 80053; 80076; 80162; 80164; 81003; 81015; 82150; 82272; 82550; 83605; 83690; 83735; 83880; 84100; 84484; 85025; 85027; 85610; 85730; 86850; 86900; 86901; 87040; 87086; 87186; 87254; 87804; 88304-TC; 93005; 93010; 93306-TC; 94760; 97161-GP; 99284-25; A9537; A9576; J1644

== ENCOUNTER 2017-07-09 10:55 | Inpatient (IN) | payer OTHER ==
[2017-07-09] MEDS ORDERED: ACETAMINOPHEN INJECTION 100 ML IVPB ONE (11:35)
[2017-07-09] MEDS ORDERED: ACETAMINOPHEN 1000 MG/100 ML VIAL (NON FORMULARY) IVPB ONE (11:37)
[2017-07-09] MEDS ORDERED: VANCOMYCIN 1,000 MG in DEXTROSE 5%-WATER - 250 ML IVPB ONE (11:37)
[2017-07-09] MEDS ORDERED: PIPERACIL/TAZOB 3.375 GM 3.375 GM/50 ML PREMIX IVPB ONE (11:37)
[2017-07-09 11:52] LABS: HEMATOCRIT 39.6 % (32.4-45.2); HEMOGLOBIN 12.4 GM/dL (10.7-15.3); MCH 29.9 pg (25.7-33.7); MCHC 31.2 g/dl (32.0-36.0); MEAN CELL VOLUME 95.8 fl (80-96); MEAN PLT VOLUME 8.3 fl (7.5-11.1); PLATELET COUNT 382 K/MM3 (134-434); RBC 4.13 M/mm3 (3.60-5.2); WHITE BLOOD COUNT 19.1 K/mm3 (4.0-10.0)
[2017-07-09 11:54] LABS: VENOUS PC02 66.3 mmHg (38-52); VENOUS PH 7.23 (7.32-7.42); VENOUS PO2 21.7 mmHg (28-48)
--- NOTE | 2017-07-09 12:00 | PDOC ---
History of Present Illness - General History Source: Parent(s), Old Records Exam Limitations: Clinical Condition <Armani Garcia - Last Filed: 07/09/17 13:14> - General History Source: Family (children at bedside), Old Records - History of Present Illness Initial Comments: 07/09/17 13:20 The patient is a 76 year old female, ?DNR/DNI, with a significant past medical history of HTN, hyperlipidemia, atrial fibrillation (on Xarelto), coronary artery disease, CHF (on Lasix and Digoxin), left breast CA s/p left sided mastectomy (approximately 3 years ago) and Alzheimers, who presents to the emergency department via EMS from [facility] with fever and vomiting today. The daughter at bedside states the patient had two episodes of vomiting yellow/ green emesis this morning, as well as, one episode of emesis in route to the ED. As per the daughter, who was informed by the nurse at [facility], there was no evidence of blood in the patients vomit this morning, however, while at bedside obtaining history, the patient began coughing red sputum. The [facility] ED nurse also reportedly noticed loose stool when changing the patient, but denies dark stool or hematochezia. The daughter reports her mothers Alzheimers has its good days and its bad. Sometimes she remembers everything and other times not so much." The daughter states her mother is otherwise mentating at baseline. Allergies: None reported. Past Surgical History: Left Mastectomy. Cholecystectomy (August 2016) Family History: Colon CA (uncle). Social History: Non smoker. Denies alcohol or drug use. PCP: Dr. Alexander Urban <Jenna Madrid - Last Filed: 07/09/17 14:35> - General Chief Complaint: Nausea/Vomiting Stated Complaint: FEVER/VOMITING Time Seen by Provider: 07/09/17 11:01 Past History - Past Medical History Cardiac Disorders: Yes (CAD, CHF,AFIB) COPD: No Dementia: Yes HTN: Yes Hypercholesterolemia: Yes Psychiatric Problems: Yes (DEPRESSION..) - Suicide/Smoking/Psychosocial Hx Smoking History: Never smoked Have you smoked in the past 12 months: No Hx Alcohol Use: No Drug/Substance Use Hx: No Substance Use Type: None <Armani Garcia - Last Filed: 07/09/17 13:14> <Jenna Madrid - Last Filed: 07/09/17 14:35> - Past Medical History Allergies/Adverse Reactions: Allergies Allergy/AdvReac Type Severity Reaction Status Date / Time No Known Allergies Allergy Verified 07/09/17 11:04 Home Medications: Ambulatory Orders Anastrozole [Arimidex -] 1 mg PO DAILY 07/09/17 Ascorbic Acid [Vitamin C] 500 mg PO BID 07/09/17 Atorvastatin Ca [Lipitor] 10 mg PO HS 07/09/17 Bacitracin Zinc 1 each TP DAILY 07/09/17 Cadexomer Iodine [Iodosorb] 40 gm TP DAILY 07/09/17 Clonazepam 0.5 mg PO TID 07/09/17 Clotrimazole 30 ml TP BID 07/09/17 Digoxin [Lanoxin -] 0.125 mg PO DAILY 07/09/17 Divalproex [Depakote -] 250 mg PO BID 07/09/17 Donepezil HCl 10 mg PO HS 07/09/17 Escitalopram Oxalate [Lexapro -] 15 mg PO DAILY 07/09/17 Folic Acid 1 mg PO DAILY 07/09/17 Furosemide 20 mg PO DAILY 07/09/17 Isosorbide Mononitrate [Isosorbide Mononitrate ER] 30 mg PO DAILY 07/09/17 Lisinopril [Zestril] 2.5 mg PO DAILY 07/09/17 Loratadine 10 mg PO DAILY 07/09/17 Melatonin 2 mg PO HS 07/09/17 Metoprolol Tartrate 25 mg PO BID 07/09/17 Multivitamin [Poly-Vitamin] 1 each PO DAILY 07/09/17 Omeprazole 20 mg PO DAILY 07/09/17 Polyethylene Glycol 3350 [Clearlax] 17 gm PO DAILY 07/09/17 Rivaroxaban [Xarelto -] 20 mg PO DAILY 07/09/17 Zinc Sulfate 220 mg PO DAILY 07/09/17 Review of Systems - Review of Systems Able to Perform ROS?: No (as per daughter and NH) <Jenna Madrid - Last Filed: 07/09/17 14:35> *Physical Exam - Vital Signs Last Vital Signs Temp Pulse Resp BP Pulse Ox 102.2 F H 139 H 26 H 210/102 95 07/09/17 11:01 07/09/17 11:38 07/09/17 11:01 07/09/17 11:01 07/09/17 11:38 <Armani Garcia - Last Filed: 07/09/17 13:14> - Vital Signs Last Vital Signs Temp Pulse Resp BP Pulse Ox 102.2 F H 148 H 24 195/97 95 07/09/17 11:01 07/09/17 12:00 07/09/17 12:00 07/09/17 12:00 07/09/17 12:00 - Physical Exam Comments: 07/09/17 13:21 GENERAL: Awake, alert, and oriented to self and place, Patient is in distress HEAD: No signs of trauma EYES: PERRLA, EOMI, sclera anicteric, conjunctiva clear ENT: Auricles normal inspection, hearing grossly normal, nares patent, oropharynx clear without exudates. Moist mucosa NECK: Normal ROM, supple, no lymphadenopathy, JVD, or masses LUNGS: (+) O2 saturation 60% on room air, tachypneic, rhonchorous breaths sounds HEART: (+) irregularly irregular, tachycardic, normal S1 and S2, no murmurs, rubs or gallops ABDOMEN: Soft, nontender, normoactive bowel sounds. No guarding, no rebound. No masses EXTREMITIES: Normal range of motion, no edema. No clubbing or cyanosis. No cords, erythema, or tenderness NEUROLOGICAL: Cranial nerves grossly II-XII intact. Responding to verbal stimuli. Normal speech, Sensation intact in upper and lower extremities.No pronator drift. Finger to nose intact. Rapid alternations intact. SKIN: Warm, Dry, normal turgor, no rashes or lesions noted. <Jenna Madrid - Last Filed: 07/09/17 14:35> Heart Score/ECG Review #1 ECG reviewed & interpreted by me at: 11:15 07/09/17 11:56 atrial fibrillation 149, STD V4-V5, no MELISSA, QTC 390 msec <Armani Garcia - Last Filed: 07/09/17 13:14> ED Treatment Course - LABORATORY CBC & Chemistry Diagram: 07/09/17 11:32 07/09/17 11:32 - RADIOLOGY Radiology Studies Ordered: Category Date Time Status CHEST X-RAY PORTABLE* [RAD] Stat Radiology 07/09/17 11:37 Taken - Medications Given in the ED: ED Medications Discontinued Medications Generic Name Dose Route Start Last Admin Trade Name Marcos PRN Reason Stop Dose Admin Acetaminophen 1,000 mg 07/09/17 11:37 07/09/17 11:38 Ofirmev Injection - IVPB 07/09/17 11:38 1,000 mg ONCE ONE Administration <Juani Garciael - Last Filed: 07/09/17 13:14> - LABORATORY CBC & Chemistry Diagram: 07/09/17 11:32 07/09/17 11:32 - ADDITIONAL ORDERS Additional order review: Laboratory Results 07/09/17 07/09/17 07/09/17 12:00 11:37 11:32 PT with INR INR PTT (Actin FS) VBG pH 7.23 L* POC VBG pCO2 66.3 H* POC VBG pO2 21.7 L Mixed VBG HCO3 26.8 H Sodium Potassium Chloride Carbon Dioxide Anion Gap BUN Creatinine Creat Clearance w eGFR Random Glucose Lactic Acid Calcium Phosphorus Magnesium Total Bilirubin AST ALT Alkaline Phosphatase Creatine Kinase Troponin I Total Protein Albumin Lipase Urine Color Yellow Urine Appearance Clear Urine pH 6.0 Ur Specific [place] 1.019 Urine Protein 2+ H Urine Glucose (UA) 1+ H Urine Ketones Trace H Urine Blood Negative Urine Nitrite Negative Urine Bilirubin Negative Urine Urobilinogen 2.0 H Ur Leukocyte Esterase Negative Urine WBC (Auto) 2 Urine RBC (Auto) 6 Ur Epithelial Cells Rare Hyaline Casts 4 Urine Mucus Rare Blood Type O POSITIVE Antibody Screen Negative 07/09/17 07/09/17 07/09/17 11:32 11:32 11:32 PT with INR 16.00 H INR 1.42 H PTT (Actin FS) 30.1 D VBG pH POC VBG pCO2 POC VBG pO2 Mixed VBG HCO3 Sodium 141 Potassium 3.7 Chloride 104 Carbon Dioxide 28 Anion Gap 9 BUN 19 H Creatinine 0.9 Creat Clearance w eGFR > 60 Random Glucose 175 H Lactic Acid 5.7 H* Calcium 8.5 Phosphorus 4.4 Magnesium 1.8 Total Bilirubin 0.8 D AST 32 D ALT 33 D Alkaline Phosphatase 130 H Creatine Kinase 68 Troponin I 0.05 Total Protein 7.3 D Albumin 3.3 L Lipase 258 Urine Color Urine Appearance Urine pH Ur Specific [place] Urine Protein Urine Glucose (UA) Urine Ketones Urine Blood Urine Nitrite Urine Bilirubin Urine Urobilinogen Ur Leukocyte Esterase Urine WBC (Auto) Urine RBC (Auto) Ur Epithelial Cells Hyaline Casts Urine Mucus Blood Type Antibody Screen 07/09/17 11:32 RBC 4.13 D MCV 95.8 MCHC 31.2 L RDW 15.0 MPV 8.3 Neutrophils % No Result Required. Lymphocytes % No Result Required. - RADIOLOGY Radiograph Interpretation: EXAM#: TYPE/EXAM: RESULT: [id number] RAD/CHEST X-RAY PORTABLE* Chest: Shortness of breath. Since the prior study of 08/20/2016, the patient is quite rotated to the right. This causes tortuosity of the aorta which has plaque formation. There is a prominent heart. There are some coarse changes. There are left-sided chest wall clips. An acute infiltrate is not seen. There are degenerative changes. Correlation recommended. A follow-up study with less rotation is suggested. Reported By: Himanshu Bartlett MD 07/09/17 1203 - Medications Given in the ED: ED Medications Discontinued Medications Generic Name Dose Route Start Last Admin Trade Name Freq PRN Reason Stop Dose Admin Acetaminophen 1,000 mg 07/09/17 11:37 07/09/17 11:38 Ofirmev Injection - IVPB 07/09/17 11:38 1,000 mg ONCE ONE Administration Vancomycin HCl 1,000 mg/ 250 mls @ 250 mls/hr 07/09/17 11:37 07/09/17 12:06 Dextrose IVPB 07/09/17 12:36 250 mls/hr ONCE ONE Administration Protocol <Jenna Madrid - Last Filed: 07/09/17 14:35> Medical Decision Making - Critical Care Time Total Critical Care Time (minutes): 35 Critical Care Statement: The care of this patient involved high complexity decision making to prevent further life threatening deterioration of the patient 's condition and/or to evaluate & treat vital organ system(s) failure or risk of failure. - Medical Decision Making 07/09/17 11:56 A portion of this note was documented by scribe services under my direction. I have reviewed the details of the note, within reason, and agree with the documentation with the following case summary and management plan written by me. Patient treated in the ED. Nursing notes are reviewed and incorporated into the medical decision-making. Vital signs reviewed. Peripheral IV access obtained by the nurse, laboratory studies are drawn and sent, reviewed and interpreted by myself. Vital Signs Temp Pulse Resp BP Pulse Ox 102.2 F H 139 H 26 H 210/102 95 07/09/17 11:01 07/09/17 11:38 07/09/17 11:01 07/09/17 11:01 07/09/17 11:38 76 year old female with past medical history of hypertension, hyperlipidemia, atrial fibrillation, coronary disease, congestive heart failure, left breast cancer status post left sided mastectomy, dementia, also cholecystectomy sent from [facility] for shortness of breath, vomiting. Patient has dementia so patient history obtained daughter. According to the daughter, the patient was otherwise in her usual state of health. Today, the patient had noted that she has had vomiting twice does greenish and yellowish and subsequent shortness of breath. Patient has been rhonchorous and she has been complaining about feeling short of breath but denies any pain. Otherwise, patient unable to clarify what exactly is bothering her. The patient was noted to be tachycardic in atrial fibrillation with rapid ventricular response. Also noted to be hypertensive and febrile concerning for sepsis. Patient's O2 saturation had been around 70% on room air and the patient' s been placed on nonrebreather. I discussed with the patient's daughter at the bedside and stated the patient is DNI. She does however agree to IV antibiotics and treatments such as IV fluids. There is some reddish-tinge (?blood) coming from the patient's cough. That this be congestive heart failure exacerbation, PNA? Ultimately, the patient is critically ill he'll need treatment. Initiated vancomycin and Zosyn and IV Tylenol. We'll need to watch the patient quite closely. 07/09/17 13:14 CBC, BMP 07/09/17 11:32 07/09/17 11:32 CMP Sodium 141 mmol/L (136-145) 07/09/17 11:32 Potassium 3.7 mmol/L (3.5-5.1) 07/09/17 11:32 Chloride 104 mmol/L (98-107) 07/09/17 11:32 Carbon Dioxide 28 mmol/L (21-32) 07/09/17 11:32 Anion Gap 9 (8-16) 07/09/17 11:32 BUN 19 mg/dL (7-18) H 07/09/17 11:32 Creatinine 0.9 mg/dL (0.55-1.02) 07/09/17 11:32 Creat Clearance w eGFR > 60 (>60) 07/09/17 11:32 Random Glucose 175 mg/dL (74-106) H 07/09/17 11:32 Lactic Acid 5.7 mmol/L (0.0-2.0) H* 07/09/17 11:32 Calcium 8.5 mg/dL (8.5-10.1) 07/09/17 11:32 Phosphorus 4.4 mg/dL (2.5-4.9) 07/09/17 11:32 Magnesium 1.8 mg/dL (1.8-2.4) 07/09/17 11:32 Total Bilirubin 0.8 mg/dL (0.2-1.0) D 07/09/17 11:32 AST 32 U/L (15-37) D 07/09/17 11:32 ALT 33 U/L (12-78) D 07/09/17 11:32 Alkaline Phosphatase 130 U/L (45-117) H 07/09/17 11:32 Creatine Kinase 68 IU/L (26-192) 07/09/17 11:32 Troponin I 0.05 ng/ml (0.00-0.05) 07/09/17 11:32 Total Protein 7.3 g/dl (6.4-8.2) D 07/09/17 11:32 Albumin 3.3 g/dl (3.4-5.0) L 07/09/17 11:32 Lipase 258 U/L (73-393) 07/09/17 11:32 Urine Test Results Urine Color Yellow 07/09/17 12:00 Urine Appearance Clear 07/09/17 12:00 Urine pH 6.0 (5.0-8.0) 07/09/17 12:00 Ur Specific [place] 1.019 (1.001-1.035) 07/09/17 12:00 Urine Protein 2+ (NEGATIVE) H 07/09/17 12:00 Urine Glucose (UA) 1+ (NEGATIVE) H 07/09/17 12:00 Urine Ketones Trace (NEGATIVE) H 07/09/17 12:00 Urine Blood Negative (NEGATIVE) 07/09/17 12:00 Urine Nitrite Negative (NEGATIVE) 07/09/17 12:00 Urine Bilirubin Negative (NEGATIVE) 07/09/17 12:00 Ur Leukocyte Esterase Negative (NEGATIVE) 07/09/17 12:00 Ur Epithelial Cells Rare /HPF (FEW) 07/09/17 12:00 Urine Mucus Rare 07/09/17 12:00 Chest xray reviewed. Pt clinically with PNA. Treated with vanc and zosyn. Pt remains critically ill but vitals improved with treatment. I had discussed significantly at length with the patient's family. Pt is DNR/ DNI. However, will accept oxygen, non-invasive therapies, IVF, and antibiotics. Case discussed with ICU Dr. Gomes who accepts patient. Case discussed with Dr. Paniagua who accepts patient to his service. Case discussed in detail with admitting physician including history, physical exam and ancillary studies. Admitting physician has assumed care for the patient, will follow all pending diagnostics and will complete the evaluation and treatment. <Armani Garcia - Last Filed: 07/09/17 13:14> - Medical Decision Making 07/09/17 12:23 Dr. Wayne was paged requesting a call back for doctor to doctor regarding admission. 07/09/17 13:00 Dr. Wayne returned the call and case was discussed. <Jenna Madrid - Last Filed: 07/09/17 14:35> *DC/Admit/Observation/Transfer - Discharge Dispostion Admit: Yes <Armani Garcia - Last Filed: 07/09/17 13:14> - Attestations Scribe Attestion: 07/09/17 13:24 Documentation prepared by Jenna Madrid, acting as back office medical assistant for Armani Garcia MD <Jenna Madrid - Last Filed: 07/09/17 14:35> Diagnosis at time of Disposition: Sepsis Qualifiers: Sepsis type: sepsis due to unspecified organism Qualified Code(s): A41.9 - Sepsis, unspecified organism - Discharge Dispostion Condition at time of disposition: Guarded
[2017-07-09] MEDS ORDERED: VANCOMYCIN 1 GRAM (PRE-DOCKED) 1,000 MG/250 ML BAG IVPB ONE (12:01)
[2017-07-09 12:06] LABS: INR 1.42 (0.82-1.09)
[2017-07-09 12:08] LABS: ACTIVATED PTT 30.1 SECONDS (26.9-34.4)
[2017-07-09 12:16] LABS: ALBUMIN 3.3 g/dl (3.4-5.0); ANION GAP 9 (8-16); BLOOD UREA NITROGEN 19 mg/dL (7-18); CALCIUM 8.5 mg/dL (8.5-10.1); CHLORIDE 104 mmol/L (98-107); CO2 28 mmol/L (21-32); CREATININE 0.9 mg/dL (0.55-1.02); GLUCOSE,RANDOM 175 mg/dL (74-106); MAGNESIUM 1.8 mg/dL (1.8-2.4); PHOSPHOROUS 4.4 mg/dL (2.5-4.9); POTASSIUM 3.7 mmol/L (3.5-5.1); SGOT/AST 32 U/L (15-37); SGPT/ALT 33 U/L (12-78); SODIUM 141 mmol/L (136-145)
[2017-07-09 12:17] LABS: LIPASE 258 U/L (73-393)
[2017-07-09 12:18] LABS: ALK PHOS 130 U/L (45-117); BILIRUBIN,TOTAL 0.8 mg/dL (0.2-1.0); TOT PROT 7.3 g/dl (6.4-8.2)
[2017-07-09 12:29] LABS: URINE APPEARANCE CLEAR; URINE BILIRUBIN NEGATIVE (NEGATIVE); URINE BLOOD NEGATIVE (NEGATIVE); URINE COLOR YELLOW; URINE GLUCOSE (UA) 1+ (NEGATIVE); URINE KETONE TRACE (NEGATIVE); URINE LEUK ESTERASE NEGATIVE (NEGATIVE); URINE NITRITE NEGATIVE (NEGATIVE)
[2017-07-09 12:32] LABS: URINE PROTEIN 2+ (NEGATIVE)
[2017-07-09 12:33] LABS: EPI CELLS RARE /HPF (FEW); URINE HYALINE CAST 4 /lpf; URINE MUCUS RARE
[2017-07-09] MEDS ORDERED: SODIUM CHLORIDE 500 ML IV STA (12:34)
[2017-07-09 12:35] LABS: ACANTHOCYTES 0; ANISOCYTOSIS 0; HELMET CELLS 0; HOWELL-JOLLY BODIES 0; MACROCYTOSIS 0; OVALOCYTE 0; PLATELET ESTIMATE NORMAL; SICKELED CELLS 0; TARGET CELLS 0; TEAR DROP CELLS 0; TOXIC GRANULATION 0
[2017-07-09] MEDS ORDERED: PIPERACILLIN/TAZOB 3.375 GM 3.375 GM/50 ML BAG IVPB ONE (14:08)
[2017-07-09 14:36] LABS: N-TERMINAL BNP 4078.35 pg/ml (5-450)
--- NOTE | 2017-07-09 15:19 | HP ---
Admitting History and Physical - Admission History of Present Illness: 76 year old female with past medical history of hypertension, hyperlipidemia, atrial fibrillation, coronary disease, congestive heart failure, left breast cancer status post left sided mastectomy, dementia, also cholecystectomy sent from [facility] for shortness of breath, vomiting. Patient has dementia so patient history obtained daughter. According to the daughter, the patient was otherwise in her usual state of health. Today, the patient had noted that she has had vomiting twice does greenish and yellowish and subsequent shortness of breath. Patient has been rhonchorous and she has been complaining about feeling short of breath but denies any pain. Otherwise, patient unable to clarify what exactly is bothering her. The patient was noted to be tachycardic in atrial fibrillation with rapid ventricular response. Also noted to be hypertensive and febrile concerning for sepsis. Patient's O2 saturation had been around 70% on room air and the patient' s been placed on nonrebreather. 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 Cardiovascular: Yes: AFIB, CHF Gastrointestinal: Yes: Other (Appendectomy at age 4 and, reexploration, laparotomy 5 years ago) Hepatobiliary: Yes: Cholecystitis (son gives h/o cholecystitits in past) - Past Surgical History Past Surgical History: Yes: Mastectomy (left sided) - Smoking History Smoking history: Never smoked Have you smoked in the past 12 months: No - Alcohol/Substance Use Hx Alcohol Use: No - Social History ADL: Support Services Home Medications - Allergies Allergies/Adverse Reactions: Allergies Allergy/AdvReac Type Severity Reaction Status Date / Time No Known Allergies Allergy Verified 07/09/17 11:04 - Home Medications Home Medications: Ambulatory Orders Anastrozole [Arimidex -] 1 mg PO DAILY 07/09/17 Ascorbic Acid [Vitamin C] 500 mg PO BID 07/09/17 Atorvastatin Ca [Lipitor] 10 mg PO HS 07/09/17 Bacitracin Zinc 1 each TP DAILY 07/09/17 Cadexomer Iodine [Iodosorb] 40 gm TP DAILY 07/09/17 Clonazepam 0.5 mg PO TID 07/09/17 Clotrimazole 30 ml TP BID 07/09/17 Digoxin [Lanoxin -] 0.125 mg PO DAILY 07/09/17 Divalproex [Depakote -] 250 mg PO BID 07/09/17 Donepezil HCl 10 mg PO HS 07/09/17 Escitalopram Oxalate [Lexapro -] 15 mg PO DAILY 07/09/17 Folic Acid 1 mg PO DAILY 07/09/17 Furosemide 20 mg PO DAILY 07/09/17 Isosorbide Mononitrate [Isosorbide Mononitrate ER] 30 mg PO DAILY 07/09/17 Lisinopril [Zestril] 2.5 mg PO DAILY 07/09/17 Loratadine 10 mg PO DAILY 07/09/17 Melatonin 2 mg PO HS 07/09/17 Metoprolol Tartrate 25 mg PO BID 07/09/17 Multivitamin [Poly-Vitamin] 1 each PO DAILY 07/09/17 Omeprazole 20 mg PO DAILY 07/09/17 Polyethylene Glycol 3350 [Clearlax] 17 gm PO DAILY 07/09/17 Rivaroxaban [Xarelto -] 20 mg PO DAILY 07/09/17 Zinc Sulfate 220 mg PO DAILY 07/09/17 Review of Systems Unable to obtain ROS, reason: see modoc Physical Examination Vital Signs: Vital Signs Temperature 101.7 F H 07/09/17 14:33 Pulse Rate 116 H 07/09/17 14:21 Respiratory Rate 22 07/09/17 14:21 Blood Pressure 105/75 07/09/17 14:21 O2 Sat by Pulse Oximetry (%) 96 07/09/17 14:21 Constitutional: Yes: Mild Distress Eyes: Yes: Conjunctiva Clear Neck: Yes: Supple Cardiovascular: Yes: Pulse Irregular Respiratory: Yes: Diminished (at bases) Gastrointestinal: Yes: Soft Edema: No Labs: CBC, BMP 07/09/17 11:32 07/09/17 11:32 Imaging - Results Chest X-ray: Report Reviewed EKG: Report Reviewed Problem List - Problems (1) Sepsis Code(s): A41.9 - SEPSIS, UNSPECIFIED ORGANISM Qualifiers: Sepsis type: sepsis due to unspecified organism Qualified Code(s): A41.9 - Sepsis, unspecified organism (2) Atrial fibrillation Code(s): I48.91 - UNSPECIFIED ATRIAL FIBRILLATION Qualifiers: Atrial fibrillation type: persistent Qualified Code(s): I48.1 - Persistent atrial fibrillation (3) Dementia Code(s): F03.90 - UNSPECIFIED DEMENTIA WITHOUT BEHAVIORAL DISTURBANCE Qualifiers: Dementia type: unspecified type Dementia behavioral disturbance: without behavioral disturbance Qualified Code(s): F03.90 - Unspecified dementia without behavioral disturbance Assessment/Plan Agree - admit to icu overnight abx- broad spectrum mild hydration i/d / cc/ cardiolgy consults discussed with Dr. Rivers- will see pt pt is dnr/di discussed with pts daughters also. cc time - 40 min in examining/ documenting and coordating care will follow
--- NOTE | 2017-07-09 15:54 | CON.ID ---
Consult Consult Specialty:: infectious diseases Referred by:: Reason for Consultation:: PNA,ams - History of Present Illness Chief Complaint: hypoxia ams History of Present Illness: 76 year old female with past medical history of hypertension, hyperlipidemia, atrial fibrillation, coronary disease, congestive heart failure, left breast cancer status post left sided mastectomy, dementia, also cholecystectomy sent from [facility] for shortness of breath, vomiting. 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 Cardio/Vascular: Yes: AFIB, CHF Gastrointestinal: Yes: Other (Appendectomy at age 4 and, reexploration, laparotomy 5 years ago) Hepatobiliary: Yes: Cholecystitis (son gives h/o cholecystitits in past) - Past Surgical History Past Surgical History: Yes: Mastectomy (left sided) - Alcohol/Substance Use Hx Alcohol Use: No - Smoking History Smoking history: Never smoked Have you smoked in the past 12 months: No - Social History Usual Living Arrangement: Jail ADL: Support Services Home Medications - Allergies Allergies/Adverse Reactions: Allergies Allergy/AdvReac Type Severity Reaction Status Date / Time No Known Allergies Allergy Verified 07/09/17 11:04 - Home Medications Home Medications: Ambulatory Orders Anastrozole [Arimidex -] 1 mg PO DAILY 07/09/17 Ascorbic Acid [Vitamin C] 500 mg PO BID 07/09/17 Atorvastatin Ca [Lipitor] 10 mg PO HS 07/09/17 Bacitracin Zinc 1 each TP DAILY 07/09/17 Clonazepam 0.5 mg PO TID 07/09/17 Clotrimazole 0 ml TP BID 07/09/17 Digoxin [Lanoxin -] 0.125 mg PO Q48H 07/09/17 Divalproex [Depakote -] 250 mg PO BID 07/09/17 Donepezil HCl 10 mg PO HS 07/09/17 Escitalopram Oxalate [Lexapro -] 15 mg PO DAILY 07/09/17 Folic Acid 1 mg PO DAILY 07/09/17 Furosemide 20 mg PO DAILY 07/09/17 Isosorbide Mononitrate [Isosorbide Mononitrate ER] 30 mg PO DAILY 07/09/17 Lisinopril [Zestril] 2.5 mg PO DAILY 07/09/17 Loratadine 10 mg PO DAILY 07/09/17 Melatonin 2 mg PO HS 07/09/17 Metoprolol Tartrate 25 mg PO BID 07/09/17 Multivitamin [Poly-Vitamin] 1 each PO DAILY 07/09/17 Omeprazole 20 mg PO DAILY 07/09/17 Polyethylene Glycol 3350 [Clearlax] 17 gm PO DAILY 07/09/17 Rivaroxaban [Xarelto -] 20 mg PO 1800 07/09/17 Zinc Sulfate 220 mg PO DAILY 07/09/17 Acetaminophen 650 mg PO Q8H PRN 07/10/17 Review of Systems Unable to obtain ROS, reason: unable--condition Physical Exam Vital Signs: Vital Signs Temperature 101.7 F H 07/09/17 14:33 Pulse Rate 116 H 07/09/17 14:21 Respiratory Rate 22 07/09/17 14:21 Blood Pressure 105/75 07/09/17 14:21 O2 Sat by Pulse Oximetry (%) 96 07/09/17 14:21 Constitutional: Yes: Anxious, Mild Distress, Thin Eyes: Yes: Conjunctiva Clear Neck: Yes: Other (flexed) Cardiovascular: Yes: Tachycardia, Pulse Irregular Respiratory: Yes: On Nasal O2, Poor Air Entry, Rhonchi Gastrointestinal: Yes: Normal Bowel Sounds, Soft Musculoskeletal: Yes: WNL Extremities: Yes: WNL Neurological: Yes: Alert, Other (dementia) Psychiatric: Yes: Other Labs: CBC, BMP 07/09/17 11:32 07/09/17 11:32 Imaging - Results Chest X-ray: Report Reviewed, Image Reviewed Assessment/Plan after looking at the history i strongly suspect patient has aspiration pna which probably led to the symptoms Problem List - Problems (1) Sepsis Code(s): A41.9 - SEPSIS, UNSPECIFIED ORGANISM Qualifiers: Sepsis type: sepsis due to unspecified organism Qualified Code(s): A41.9 - Sepsis, unspecified organism (2) Atrial fibrillation Code(s): I48.91 - UNSPECIFIED ATRIAL FIBRILLATION Qualifiers: Atrial fibrillation type: persistent Qualified Code(s): I48.1 - Persistent atrial fibrillation (3) Dementia Code(s): F03.90 - UNSPECIFIED DEMENTIA WITHOUT BEHAVIORAL DISTURBANCE Qualifiers: Dementia type: unspecified type Dementia behavioral disturbance: without behavioral disturbance Qualified Code(s): F03.90 - Unspecified dementia without behavioral disturbance 4) asp pna 5 lactic acidosis 6 leukocytosis 7 dehydration plan hydration murray top vanco will continue zosyn monitor wbc and lactic acid resp support rest as per icu and primary team cc time 40 min
[2017-07-09] MEDS ORDERED: PANTOPRAZOLE SODIUM 40 MG VIAL ONE (16:26)
[2017-07-09] MEDS: PANTOPRAZOLE SODIUM 40 MG VIAL IVPUSH SCH (16:30)
--- NOTE | 2017-07-09 16:30 | EKG ---
Test Reason : Blood Pressure : / mmHG Vent. Rate : 149 BPM Atrial Rate : 150 BPM P-R Int : 000 ms QRS Dur : 094 ms QT Int : 248 ms P-R-T Axes : 000 067 216 degrees QTc Int : 390 ms POOR DATA QUALITY, INTERPRETATION MAY BE ADVERSELY AFFECTED ATRIAL FIBRILLATION WITH RAPID VENTRICULAR RESPONSE MARKED ST ABNORMALITY, POSSIBLE ANTEROLATERAL SUBENDOCARDIAL INJURY ABNORMAL ECG WHEN COMPARED WITH ECG OF 03-SEP-2016 20:23, PREVIOUS ECG IS PRESENT Confirmed by SENA CORRAL MD ([id number]) on 07/09/2017 4:29:44 PM Referred By: Confirmed By:SENA CORRAL MD
[2017-07-09] MEDS: D5-1/2NS+20 MEQ KCL - 20 MEQ/1,000 ML INFUS.BAG IV SCH (16:35)
[2017-07-09] MEDS ORDERED: PIPERACILLIN/TAZOB 3.375 GM 50 ML IVPB SCH (18:00)
[2017-07-09] MEDS: PIPERACILLIN/TAZOB 3.375 GM 3.375 GM in DEXTROSE 5%-WATER - 100 ML IVPB SCH (18:00)
[2017-07-09] MEDS ORDERED: MUPIROCIN 2% TOPICAL OINTMENT FOR DECOLONIZATION NS SCH (22:00)
[2017-07-09] MEDS ORDERED: CHLORHEXIDINE GLUCONATE 4% CLEANSER FOR DECOLONIZATION TP SCH (22:00)
[2017-07-09] MEDS ORDERED: clonazePAM 0.5 MG TABLET ONE (22:16)
[2017-07-09] MEDS ORDERED: ACETAMINOPHEN 325 MG TABLET (FP) ONE (22:16)
[2017-07-09] MEDS ORDERED: DONEPEZIL HCL 5 MG TABLET (FP) ONE (22:17)
[2017-07-09] MEDS ORDERED: DIVALPROEX SODIUM 125 MG TABLET E.C. (FP) ONE (22:28)
[2017-07-09] MEDS ORDERED: METOPROLOL TARTRATE 50 MG TABLET (FP) ONE (22:28)
[2017-07-09] MEDS ORDERED: ACETAMINOPHEN 650 MG/20.3 ML ORAL SOLUTION (CUPS) ONE (22:33)
[2017-07-09] MEDS: clonazePAM 0.5 MG TABLET PO SCH (22:43)
[2017-07-09] MEDS: METOPROLOL TARTRATE 25 MG TABLET (FP) PO SCH (22:43)
[2017-07-09] MEDS: MELATONIN 1 MG TABLET PO SCH (22:43)
[2017-07-09] MEDS: DIVALPROEX SODIUM 125 MG TABLET E.C. (FP) PO SCH (22:44)
[2017-07-09] MEDS: DONEPEZIL HCL 10 MG TABLET (FP) PO SCH (22:44)
[2017-07-09] MEDS: CLOTRIMAZOLE 1%TOPICAL SOLUTION 30 ML BOTTLE TP SCH (22:45)
[2017-07-09] MEDS: ATORVASTATIN CA 10 MG TABLET (FP) PO SCH (22:46)
[2017-07-09] MEDS ORDERED: ATORVASTATIN CA 40 MG TABLET (FP) ONE (22:46)
[2017-07-09] MEDS: ACETAMINOPHEN 325 MG TABLET (FP) PO PRN (22:47)
[2017-07-10] MEDS: PIPERACILLIN/TAZOB 3.375 GM 3.375 GM in DEXTROSE 5%-WATER - 100 ML IVPB SCH ×3 (03:47→17:37)
[2017-07-10] MEDS ORDERED: PIPERACILLIN/TAZOB 3.375 GM 3.375 GM/50 ML BAG IVPB ONE (03:49)
[2017-07-10 06:50] LABS: BASO % 0.3 % (0-2.0); EOS % 0.1 % (0-4.5); HEMATOCRIT 30.4 % (32.4-45.2); HEMOGLOBIN 10.2 GM/dL (10.7-15.3); LYMPH % 11.3 % (8-40); MCH 31.7 pg (25.7-33.7); MCHC 33.5 g/dl (32.0-36.0); MEAN CELL VOLUME 94.5 fl (80-96); MEAN PLT VOLUME 8.8 fl (7.5-11.1); MONO % 4.7 % (3.8-10.2); NEUT % 83.6 % (42.8-82.8); PLATELET COUNT 242 K/MM3 (134-434); RBC 3.22 M/mm3 (3.60-5.2); RDW 14.9 % (11.6-15.6); WHITE BLOOD COUNT 10.7 K/mm3 (4.0-10.0)
[2017-07-10] MEDS ORDERED: clonazePAM 0.5 MG TABLET ONE (06:54)
[2017-07-10] MEDS: clonazePAM 0.5 MG TABLET PO SCH ×3 (07:04→21:44)
[2017-07-10 07:23] LABS: ALBUMIN 2.4 g/dl (3.4-5.0); ALK PHOS 79 U/L (45-117); ANION GAP 8 (8-16); BILIRUBIN,TOTAL 1.3 mg/dL (0.2-1.0); BLOOD UREA NITROGEN 25 mg/dL (7-18); CALCIUM 7.6 mg/dL (8.5-10.1); CHLORIDE 107 mmol/L (98-107); CO2 28 mmol/L (21-32); CREATININE 0.7 mg/dL (0.55-1.02); GLUCOSE,RANDOM 83 mg/dL (74-106); MAGNESIUM 1.7 mg/dL (1.8-2.4); POTASSIUM 4.2 mmol/L (3.5-5.1); SGOT/AST 34 U/L (15-37); SGPT/ALT 26 U/L (12-78); SODIUM 143 mmol/L (136-145); TOT PROT 5.4 g/dl (6.4-8.2)
[2017-07-10] MEDS ORDERED: LISINOPRIL 5 MG TABLET (FP) PO SCH (10:00)
[2017-07-10] MEDS: BACITRACIN 0.9 GM PACKET TP SCH (10:14)
[2017-07-10] MEDS: CLOTRIMAZOLE 1%TOPICAL SOLUTION 30 ML BOTTLE TP SCH ×2 (10:14→21:45)
[2017-07-10] MEDS ORDERED: PANTOPRAZOLE SODIUM 40 MG VIAL ONE (10:18)
[2017-07-10] MEDS: PANTOPRAZOLE SODIUM 40 MG VIAL IVPUSH SCH (10:26)
--- NOTE | 2017-07-10 11:07 | PN ---
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, Physician History of Present Illness: patient looks much more comfortable awake and alert family in room wbc trending down lactic acid normal - Current Medication List Current Medications: Active Medications Acetaminophen (Tylenol -) 650 mg PO Q6H PRN PRN Reason: PAIN LEVEL 1-5 Last Admin: 07/09/17 22:47 Dose: 650 mg Anastrozole (Arimidex -) 1 mg PO DAILY [facility] Atorvastatin Calcium (Lipitor -) 10 mg PO HS [facility] Last Admin: 07/09/17 22:46 Dose: 10 mg Bacitracin (Bacitracin -) 0.9 gm TP DAILY [facility] Last Admin: 07/10/17 10:14 Dose: Not Given Chlorhexidine Gluconate (Hibiclens For Decolonization -) 1 applic TP HS [facility] Last Admin: 07/09/17 22:47 Dose: Not Given Clonazepam (Klonopin -) 0.5 mg PO TID [facility] Last Admin: 07/10/17 07:04 Dose: 0.5 mg Clotrimazole (Lotrimin 1% Solution -) 1 applic TP BID [facility] Last Admin: 07/10/17 10:14 Dose: Not Given Digoxin (Lanoxin -) 0.125 mg PO DAILY [facility] Divalproex Sodium (Depakote -) 250 mg PO BID [facility] Last Admin: 07/09/17 22:44 Dose: 250 mg Donepezil HCl (Aricept -) 10 mg PO HS [facility] Last Admin: 07/09/17 22:44 Dose: 10 mg Escitalopram Oxalate (Lexapro -) 15 mg PO DAILY [facility] Potassium Chloride/Dextrose/Sod Cl (D5-1/2ns+20 Meq Kcl -) 20 meq in 1,000 mls @ 100 mls/hr IV ASDIR [facility] Last Admin: 07/09/17 16:35 Dose: 100 mls/hr Piperacillin Sod/Tazobactam (Sod 3.375 gm/ Dextrose) 100 mls @ 200 mls/hr IVPB Q8H-IV [facility] Last Admin: 07/10/17 10:26 Dose: 200 mls/hr Isosorbide Mononitrate (Imdur -) 30 mg PO DAILY [facility] Lisinopril (Prinivil) 2.5 mg PO DAILY [facility] Melatonin (Melatonin) 2 mg PO HS [facility] Last Admin: 07/09/17 22:43 Dose: Not Given Metoprolol Tartrate (Lopressor -) 25 mg PO BID [facility] Last Admin: 07/09/17 22:43 Dose: 25 mg Mupirocin (Bactroban Ointment (For Decolonization) -) 1 applic NS BID [facility] Stop: 07/14/17 21:59 Last Admin: 07/09/17 22:47 Dose: Not Given Pantoprazole Sodium (Protonix Iv) 40 mg IVPUSH DAILY [facility] Last Admin: 07/10/17 10:26 Dose: 40 mg - Objective Vital Signs: Vital Signs Temperature 98.2 F 07/10/17 06:00 Pulse Rate 96 H 07/10/17 10:27 Respiratory Rate 20 07/10/17 10:27 Blood Pressure 100/56 07/10/17 10:27 O2 Sat by Pulse Oximetry (%) 97 07/10/17 10:27 Constitutional: Yes: No Distress, Calm Cardiovascular: Yes: Pulse Irregular Respiratory: Yes: On Nasal O2, Poor Air Entry, Other Gastrointestinal: Yes: Normal Bowel Sounds, Soft Extremities: Yes: WNL Neurological: Yes: Alert, Other Labs: CBC, BMP 07/10/17 06:36 07/10/17 06:36 INR, PTT INR 1.42 (0.82-1.09) H 07/09/17 11:32 Assessment/Plan after looking at the history i strongly suspect patient has aspiration pna which probably led to the symptoms Problem List - Problems (1) Sepsis Code(s): A41.9 - SEPSIS, UNSPECIFIED ORGANISM Qualifiers: Sepsis type: sepsis due to unspecified organism Qualified Code(s): A41.9 - Sepsis, unspecified organism (2) Atrial fibrillation Code(s): I48.91 - UNSPECIFIED ATRIAL FIBRILLATION Qualifiers: Atrial fibrillation type: persistent Qualified Code(s): I48.1 - Persistent atrial fibrillation (3) Dementia Code(s): F03.90 - UNSPECIFIED DEMENTIA WITHOUT BEHAVIORAL DISTURBANCE Qualifiers: Dementia type: unspecified type Dementia behavioral disturbance: without behavioral disturbance Qualified Code(s): F03.90 - Unspecified dementia without behavioral disturbance 4) asp pna 5 lactic acidosis 6 leukocytosis 7 dehydration plan continue abx hydration continue to monitor lactic acid close watch
[2017-07-10 11:35] VITALS: BMI 24.1
[2017-07-10] MEDS: ANASTROZOLE 1 MG TABLET PO SCH (11:54)
[2017-07-10] MEDS: METOPROLOL TARTRATE 25 MG TABLET (FP) PO SCH ×2 (11:54→21:45)
[2017-07-10] MEDS: DIVALPROEX SODIUM 125 MG TABLET E.C. (FP) PO SCH ×2 (11:54→22:07)
[2017-07-10] MEDS: ISOSORBIDE MONONITRATE 30 MG TAB.SR.24H (FP) PO SCH (11:54)
[2017-07-10] MEDS: ESCITALOPRAM OXALATE 10 MG TABLET (FP) PO SCH (11:55)
[2017-07-10] MEDS: DIGOXIN 0.125 MG TABLET (FP) PO SCH (11:55)
--- NOTE | 2017-07-10 14:10 | PN ---
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 (short form) - Note 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: pt seen/ examined looks better awake daughter at bedside afebrile wbcs coming down Vital Signs Temp 98.2 F 07/10/17 06:00 Pulse 86 07/10/17 12:22 Resp 20 07/10/17 13:06 BP 105/66 07/10/17 12:22 Pulse Ox 98 07/10/17 13:06 Intake & Output 07/09/17 07/10/17 07/10/17 23:59 11:59 23:59 Intake Total 1000 1550 Output Total 30 750 Balance -30 250 1550 Weight 153 lb 15.992 oz Intake: IV 1000 1200 D5-1/2NS+20 MEQ KCL - 20 1000 1200 meq In 1,000 ml @ 100 mls /hr IV ASDIR [facility] Rx#: [id number] IVPB 350 Output: Urine 30 750 Hicks 30 750 Other: Voiding Method Indwelling Catheter Incontinent Height 5 ft 7 in Body Mass Index (BMI) 24.1 Active Medications Acetaminophen (Tylenol -) 650 mg PO Q6H PRN PRN Reason: PAIN LEVEL 1-5 Last Admin: 07/09/17 22:47 Dose: 650 mg Anastrozole (Arimidex -) 1 mg PO DAILY [facility] Last Admin: 07/10/17 11:54 Dose: 1 mg Atorvastatin Calcium (Lipitor -) 10 mg PO [facility] Last Admin: 07/09/17 22:46 Dose: 10 mg Bacitracin (Bacitracin -) 0.9 gm TP DAILY [facility] Last Admin: 07/10/17 10:14 Dose: Not Given Chlorhexidine Gluconate (Hibiclens For Decolonization -) 1 applic TP [facility] Last Admin: 07/09/17 22:47 Dose: Not Given Clonazepam (Klonopin -) 0.5 mg PO TID [facility] Last Admin: 07/10/17 13:42 Dose: 0.5 mg Clotrimazole (Lotrimin 1% Solution -) 1 applic TP BID [facility] Last Admin: 07/10/17 10:14 Dose: Not Given Digoxin (Lanoxin -) 0.125 mg PO DAILY [facility] Last Admin: 07/10/17 11:55 Dose: 0.125 mg Divalproex Sodium (Depakote -) 250 mg PO BID [facility] Last Admin: 07/10/17 11:54 Dose: 250 mg Donepezil HCl (Aricept -) 10 mg PO HS [facility] Last Admin: 07/09/17 22:44 Dose: 10 mg Escitalopram Oxalate (Lexapro -) 15 mg PO DAILY [facility] Last Admin: 07/10/17 11:55 Dose: 15 mg Potassium Chloride/Dextrose/Sod Cl (D5-1/2ns+20 Meq Kcl -) 20 meq in 1,000 mls @ 100 mls/hr IV ASDIR [facility] Last Admin: 07/09/17 16:35 Dose: 100 mls/hr Piperacillin Sod/Tazobactam (Sod 3.375 gm/ Dextrose) 100 mls @ 200 mls/hr IVPB Q8H-IV [facility] Last Admin: 07/10/17 10:26 Dose: 200 mls/hr Isosorbide Mononitrate (Imdur -) 30 mg PO DAILY [facility] Last Admin: 07/10/17 11:54 Dose: 30 mg Lisinopril (Prinivil) 2.5 mg PO DAILY [facility] Last Admin: 07/10/17 11:55 Dose: 2.5 mg Melatonin (Melatonin) 2 mg PO HS [facility] Last Admin: 07/09/17 22:43 Dose: Not Given Metoprolol Tartrate (Lopressor -) 25 mg PO BID [facility] Last Admin: 07/10/17 11:54 Dose: 25 mg Mupirocin (Bactroban Ointment (For Decolonization) -) 1 applic NS BID [facility] Stop: 07/14/17 21:59 Last Admin: 07/09/17 22:47 Dose: Not Given Pantoprazole Sodium (Protonix Iv) 40 mg IVPUSH DAILY [facility] Last Admin: 07/10/17 10:26 Dose: 40 mg CBC, BMP 07/10/17 06:36 07/10/17 06:36 Microbiology 07/09/17 11:32 Blood Culture - Preliminary Blood - Peripheral Venous NO GROWTH OBTAINED AFTER 24 HOURS, INCUBATION TO CONTINUE FOR 4 DAYS. 07/09/17 11:32 Blood Culture - Preliminary Blood - Peripheral Venous NO GROWTH OBTAINED AFTER 24 HOURS, INCUBATION TO CONTINUE FOR 4 DAYS. 07/09/17 12:00 Urine Culture - Final Urine - Urine Clean Catch NO GROWTH OBTAINED 07/09/17 14:20 Influenza Types A,B Antigen ([facility]AR[facility]) - Final Nasopharyngeal Swab - Final Physical Examination Constitutional: Yes: awake/ Eyes: Yes: Conjunctiva Clear Neck: Yes: Supple/ no jvd Cardiovascular: Yes: Pulse Irregular Respiratory: Yes: Diminished (at bases) Gastrointestinal: Yes: Soft/ non tender Edema: No Imaging - Results Chest X-ray: Report Reviewed EKG: Report Reviewed Assessment/Plan Clinically better continue abx- d/c iv fluid f/u labs decrease oxygen. disucssed with pts daughter- pt eates regular food in custodial will start . will follow. discussed with nursing staff . Problem List - Problems (1) Sepsis Code(s): A41.9 - SEPSIS, UNSPECIFIED ORGANISM Qualifiers: Sepsis type: sepsis due to unspecified organism Qualified Code(s): A41.9 - Sepsis, unspecified organism (2) Atrial fibrillation Code(s): I48.91 - UNSPECIFIED ATRIAL FIBRILLATION Qualifiers: Atrial fibrillation type: persistent Qualified Code(s): I48.1 - Persistent atrial fibrillation (3) Dementia Code(s): F03.90 - UNSPECIFIED DEMENTIA WITHOUT BEHAVIORAL DISTURBANCE Qualifiers: Dementia type: unspecified type Dementia behavioral disturbance: without behavioral disturbance Qualified Code(s): F03.90 - Unspecified dementia without behavioral disturbance
--- NOTE | 2017-07-10 14:53 | CON.PULM ---
Consult Consult Specialty:: PULMONARY Referred by:: Dr. Paniagua Reason for Consultation:: hypoxia - History of Present Illness Chief Complaint: vomiting History of Present Illness: 76yo female with h/o HTN, hyperlipidemia, atrial fibrillation, CAD, CHF, h/o left breast ca s/p mastectomy, dementia who was transferred from the snf for vomiting and fever. History obtained from daughter at bedside as she is lethargic but arousable. Reports coughing with bloody sputum. She normally is wheelchair/bed bound but can feed herself and hold a conversation. She does feed herself most of the time. She denies any pulmonary history, is a never smoker. Febrile to 101.7 on presentation, initial CXR rotated, poor technique. - History Source History Provided By: Patient, Medical Record Limitations to Obtaining History: Clinical Condition - Past Medical History DOCUMENTATION SPECIALIST: Yes: Dementia Cardio/Vascular: Yes: AFIB, CHF Gastrointestinal: Yes: Other (Appendectomy at age 4 and, reexploration, laparotomy 5 years ago) Hepatobiliary: Yes: Cholecystitis (son gives h/o cholecystitits in past) - Past Surgical History Past Surgical History: Yes: Mastectomy (left sided) - Alcohol/Substance Use Hx Alcohol Use: No - Smoking History Smoking history: Never smoked Have you smoked in the past 12 months: No - Social History Usual Living Arrangement: [facility] ADL: Support Services Home Medications - Allergies Allergies/Adverse Reactions: Allergies Allergy/AdvReac Type Severity Reaction Status Date / Time No Known Allergies Allergy Verified 07/09/17 11:04 - Home Medications Home Medications: Ambulatory Orders Anastrozole [Arimidex -] 1 mg PO DAILY 07/09/17 Ascorbic Acid [Vitamin C] 500 mg PO BID 07/09/17 Atorvastatin Ca [Lipitor] 10 mg PO HS 07/09/17 Bacitracin Zinc 1 each TP DAILY 07/09/17 Clonazepam 0.5 mg PO TID 07/09/17 Clotrimazole 0 ml TP BID 07/09/17 Digoxin [Lanoxin -] 0.125 mg PO Q48H 07/09/17 Divalproex [Depakote -] 250 mg PO BID 07/09/17 Donepezil HCl 10 mg PO HS 07/09/17 Escitalopram Oxalate [Lexapro -] 15 mg PO DAILY 07/09/17 Folic Acid 1 mg PO DAILY 07/09/17 Furosemide 20 mg PO DAILY 07/09/17 Isosorbide Mononitrate [Isosorbide Mononitrate ER] 30 mg PO DAILY 07/09/17 Lisinopril [Zestril] 2.5 mg PO DAILY 07/09/17 Loratadine 10 mg PO DAILY 07/09/17 Melatonin 2 mg PO HS 07/09/17 Metoprolol Tartrate 25 mg PO BID 07/09/17 Multivitamin [Poly-Vitamin] 1 each PO DAILY 07/09/17 Omeprazole 20 mg PO DAILY 07/09/17 Polyethylene Glycol 3350 [Clearlax] 17 gm PO DAILY 07/09/17 Rivaroxaban [Xarelto -] 20 mg PO 1800 07/09/17 Zinc Sulfate 220 mg PO DAILY 07/09/17 Acetaminophen 650 mg PO Q8H PRN 07/10/17 Review of Systems Unable to obtain ROS, reason: pt lethargic Physical Exam Vital Sings: Vital Signs Temperature 98.2 F 07/10/17 06:00 Pulse Rate 86 07/10/17 12:22 Respiratory Rate 20 07/10/17 13:06 Blood Pressure 105/66 07/10/17 12:22 O2 Sat by Pulse Oximetry (%) 98 07/10/17 13:06 Constitutional: Yes: Mild Distress (mildly tachypneic at rest) Eyes: Yes: Conjunctiva Clear, EOM Intact HENT: Yes: Atraumatic, Normocephalic Neck: Yes: Supple, Trachea Midline Cardiovascular: Yes: Pulse Irregular Respiratory: Yes: Rhonchi ...Clubbing: No Gastrointestinal: Yes: Normal Bowel Sounds, Soft. No: Tenderness Edema: No Neurological: Yes: Lethargy Labs: CBC, BMP 07/10/17 06:36 07/10/17 06:36 Imaging - Results Chest X-ray: Report Reviewed, Image Reviewed (rotated) Problem List - Problems (1) Acute respiratory failure with hypoxia Code(s): J96.01 - ACUTE RESPIRATORY FAILURE WITH HYPOXIA (2) Pneumonia Code(s): J18.9 - PNEUMONIA, UNSPECIFIED ORGANISM (3) Sepsis Code(s): A41.9 - SEPSIS, UNSPECIFIED ORGANISM Qualifiers: Sepsis type: sepsis due to unspecified organism Qualified Code(s): A41.9 - Sepsis, unspecified organism (4) Atrial fibrillation Code(s): I48.91 - UNSPECIFIED ATRIAL FIBRILLATION Qualifiers: Atrial fibrillation type: persistent Qualified Code(s): I48.1 - Persistent atrial fibrillation (5) Coronary artery disease Code(s): I25.10 - ATHSCL HEART DISEASE OF [place] CORONARY ARTERY W/O ANG PCTRS Qualifiers: Coronary Disease-Associated Artery/Lesion type: [place] artery [place] vs. transplanted heart: [place] heart Associated angina: without angina Qualified Code(s): I25.10 - Atherosclerotic heart disease of [place] coronary artery without angina pectoris (6) Dementia Code(s): F03.90 - UNSPECIFIED DEMENTIA WITHOUT BEHAVIORAL DISTURBANCE Qualifiers: Dementia type: unspecified type Dementia behavioral disturbance: without behavioral disturbance Qualified Code(s): F03.90 - Unspecified dementia without behavioral disturbance (7) Lactic acidosis Code(s): E87.2 - ACIDOSIS Assessment/Plan Acute Hypoxic Respiratory Failure r/o Pneumonia Sepsis Lactic Acidosis Hemoptysis CAD Atrial Fibrillation with RVR CHF Dementia - IV antibiotics - f/u cultures - O2 to keep Spo2 >90%, placed on nasal cannula 5L/min - inhaled bronchodilators - aspiration precautions - repeat CXR in AM - rate control - IVF - PO as tolerated - DVT prophylaxis Thank you for this consult Trenton Gomes MD
--- NOTE | 2017-07-10 15:14 | PN ---
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 (short form) - Note 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: Chief Complaint: Events noted, notes reviewed, lethargic but easily arousable, confused and disoriented but baseline according to the daughter who is at the bedside, remains in atrial fibrillation rate controlled History of Present Illness: seen and examined on telemetry. Full consult dictated Echocardiography performed 08/23/2016 revealed normal LV size and function, with mild AR and MR - Current Medication List Current Medications Acetaminophen (Tylenol -) 650 mg PO Q6H PRN PRN Reason: PAIN LEVEL 1-5 Last Admin: 07/09/17 22:47 Dose: 650 mg Anastrozole (Arimidex -) 1 mg PO DAILY [facility] Last Admin: 07/10/17 11:54 Dose: 1 mg Atorvastatin Calcium (Lipitor -) 10 mg PO [facility] Last Admin: 07/09/17 22:46 Dose: 10 mg Bacitracin (Bacitracin -) 0.9 gm TP DAILY [facility] Last Admin: 07/10/17 10:14 Dose: Not Given Chlorhexidine Gluconate (Hibiclens For Decolonization -) 1 applic TP [facility] Last Admin: 07/09/17 22:47 Dose: Not Given Clonazepam (Klonopin -) 0.5 mg PO TID [facility] Last Admin: 07/10/17 13:42 Dose: 0.5 mg Clotrimazole (Lotrimin 1% Solution -) 1 applic TP BID [facility] Last Admin: 07/10/17 10:14 Dose: Not Given Digoxin (Lanoxin -) 0.125 mg PO DAILY [facility] Last Admin: 07/10/17 11:55 Dose: 0.125 mg Divalproex Sodium (Depakote -) 250 mg PO BID [facility] Last Admin: 07/10/17 11:54 Dose: 250 mg Donepezil HCl (Aricept -) 10 mg PO [facility] Last Admin: 07/09/17 22:44 Dose: 10 mg Escitalopram Oxalate (Lexapro -) 15 mg PO DAILY [facility] Last Admin: 07/10/17 11:55 Dose: 15 mg Potassium Chloride/Dextrose/Sod Cl (D5-1/2ns+20 Meq Kcl -) 20 meq in 1,000 mls @ 100 mls/hr IV ASDIR [facility] Last Admin: 07/09/17 16:35 Dose: 100 mls/hr Piperacillin Sod/Tazobactam (Sod 3.375 gm/ Dextrose) 100 mls @ 200 mls/hr IVPB Q8H-IV [facility] Last Admin: 07/10/17 10:26 Dose: 200 mls/hr Isosorbide Mononitrate (Imdur -) 30 mg PO DAILY [facility] Last Admin: 07/10/17 11:54 Dose: 30 mg Lisinopril (Prinivil) 2.5 mg PO DAILY [facility] Last Admin: 07/10/17 11:55 Dose: 2.5 mg Melatonin (Melatonin) 2 mg PO HS [facility] Last Admin: 07/09/17 22:43 Dose: Not Given Metoprolol Tartrate (Lopressor -) 25 mg PO BID [facility] Last Admin: 07/10/17 11:54 Dose: 25 mg Mupirocin (Bactroban Ointment (For Decolonization) -) 1 applic NS BID [facility] Stop: 07/14/17 21:59 Last Admin: 07/09/17 22:47 Dose: Not Given Pantoprazole Sodium (Protonix Iv) 40 mg IVPUSH DAILY [facility] Last Admin: 07/10/17 10:26 Dose: 40 mg Review of Systems: Unable to obtain related to organic brain syndrome - Objective Vital Signs: Last Vital Signs Temp Pulse Resp BP Pulse Ox 98.2 F 86 20 105/66 98 07/10/17 06:00 07/10/17 12:22 07/10/17 13:06 07/10/17 12:22 07/10/17 13:06 Intake & Output 07/07/17 07/08/17 07/09/17 07/10/17 23:59 23:59 23:59 23:59 Intake Total 2550 Output Total 30 750 Balance -30 1800 Weight 154 lb 153 lb 15.992 oz Constitutional: No Distress, Calm Neck: Supple Negative JVD Cardiovascular: S1 S2 Irregularly Irregular Respiratory: Diminished Breath Sounds at the Bases Gastrointestinal: Soft Benign Normal Bowel Sounds Ext: No Edema Labs: CBC, BMP 07/10/17 06:36 07/10/17 06:36 INR, PTT INR 1.42 (0.82-1.09) H 07/09/17 11:32 Hepatic Panel Total Bilirubin 1.3 mg/dL (0.2-1.0) H D 07/10/17 06:36 AST 34 U/L (15-37) 07/10/17 06:36 ALT 26 U/L (12-78) D 07/10/17 06:36 Alkaline Phosphatase 79 U/L (45-117) D 07/10/17 06:36 Albumin 2.4 g/dl (3.4-5.0) L D 07/10/17 06:36 Assessment/Plan ASSESSMENT: 1. Clinical presentation is consistent with aspiration pneumonia, hemoptysis, complicated by sepsis syndrome and lactic acidosis 2. CAD angina pectoris history of demand ischemic injury 3. Diastolic LV dysfunction with chronic class 0-I NYHA classification LV failure, compensated/euvolemic, probably hypovolemic 4. Persistent atrial fibrillation rate controlled on NOAC's, held for hemoptysis 5. HTN 6. Hyperlipidemia 7. Organic brain syndrome/dementia 8. Anemia 9. History of breast carcinoma PLAN: 1. Resume Xarelto once hemostasis is achieved (resolution of hemoptysis) 2. Continue Lopressor 3. Continue Lisinopril 4. Continue Imdur 5. Continue Lipitor 6. Continue Digoxin with close monitoring of level 7. Echocardiography to evaluate LV systolic function 8. Antibiotics as per the primary team Skip Childs MD
[2017-07-10] MEDS ORDERED: PT OWN MED DRAWER 7, Y5N ONE (17:12)
[2017-07-10] MEDS: D5-1/2NS+20 MEQ KCL - 20 MEQ/1,000 ML INFUS.BAG IV SCH (17:31)
[2017-07-10] MEDS: ACETAMINOPHEN 325 MG TABLET (FP) PO PRN (17:32)
--- NOTE | 2017-07-10 18:08 | CONS ---
DATE OF CONSULTATION: DATE OF DICTATION: 07/10/2017 CONSULTATION REQUESTED BY: Sasha Paniagua MD CHIEF COMPLAINT: Evaluation of atrial fibrillation with rapid ventricular response. History was obtained from the old chart and from the daughter, who is at the bedside. A 76-year-old female with known history of coronary artery disease, history of demand ischemic injury, angina pectoris, diastolic left ventricular dysfunction, with congestive heart failure, persistent atrial fibrillation, on chronic anticoagulation therapy with Xarelto, hypertensive cardiovascular disease, hypercholesterolemia, organic brain syndrome, Alzheimer's dementia, history of breast carcinoma, post mastectomy, resident of an extended care facility, who presented to [facility] after she was noted to have recurrent vomiting followed by change in mental status, fever. Upon evaluation in the emergency room, patient was noted to have evidence of pneumonia with sepsis syndrome. In addition, patient was noted to have evidence of lactic acidosis. Patient was noted to have evidence of atrial fibrillation with rapid ventricular response, in view of which cardiology evaluation was requested. Patient currently is admitted to the telemetry unit. She is lethargic but arousable, does not appear to be in any acute distress. Atrial fibrillation was noted, with controlled ventricular rate. Patient does not respond to questions. PAST MEDICAL HISTORY: Coronary artery disease, history demand ischemic injury, angina pectoris, diastolic left ventricular dysfunction with chronic class [address] [facility] classification left ventricular failure, persistent atrial fibrillation, on chronic anticoagulation therapy, hypertensive cardiovascular disease, hypercholesterolemia, organic brain syndrome, dementia, breast carcinoma post mastectomy, post cholecystectomy. SOCIAL HISTORY: A resident of an extended care facility. ALLERGIES: None reported. Medical therapy currently includes acetaminophen 650 mg every 6 hours as needed, Arimidex 1 mg once a day, Lipitor 10 mg once a day, Klonopin 0.5 mg 3 times a day, digoxin 0.125 mg once a day, Depakote 250 mg twice a day, Aricept 10 mg once a day, Lexapro 15 mg once a day, piperacillin/tazobactam 3.375 g every 8 hours, Imdur 30 mg once a day, Prinivil 2.5 mg once a day, melatonin 2 mg once a day, Lopressor 25 mg twice a day, Protonix 40 mg IV once daily. REVIEW OF SYSTEMS: Unable to obtain related to the above-noted organic brain syndrome. PHYSICAL EXAMINATION: Vital Signs: Blood pressure is 105/66 mmHg. Pulse rate is 86 beats per minute. Temperature 98.2. Head and Neck: Pupils equal, react to light and accommodation. Extraocular muscles are intact. Anicteric sclerae. Negative JVD. No bruit appreciated. Chest: Diminished breath sounds at the bases bilaterally. Cardiovascular: S1, S2, irregularly irregular. Abdomen: Soft, benign. Normoactive bowel sound. No organomegaly. Extremities: Negative edema. 1+ distal pulses. No calf tenderness. Electrocardiogram reveals atrial fibrillation with rapid ventricular response and diffuse ST segment abnormalities. CBC revealed white cell count 10.7, hemoglobin 10.2, platelet count 242. Basic metabolic profile revealed a sodium 143, potassium 4.2, BUN 25, creatinine 0.7, glucose 83, INR 1.42, AST 34, ALT 26. ASSESSMENT: 1. Clinical presentation is consistent with aspiration pneumonia. In addition, reported hemoptysis complicated by sepsis syndrome and lactic acidosis. 2. Coronary artery disease, angina pectoris, with a history of demand ischemic injury. 3. Diastolic left ventricular dysfunction with chronic class [address] [facility] [employer] classification left ventricular failure, compensated, euvolemic, currently probably hypovolemic. 4. Persistent atrial fibrillation, rate controlled on Xarelto, currently withheld for hemoptysis. 5. Hypertensive cardiovascular disease. 6. Hypercholesterolemia. 7. Organic brain syndrome/dementia. 8. Anemia. 9. History of breast carcinoma. RECOMMENDATION: 1. Resumption of Xarelto therapy once hemostasis is achieved, resolution of hemoptysis. 2. Continuation of Lopressor. 3. Continuation of lisinopril therapy. 4. Continuation of Imdur therapy. 5. Continuation of Lipitor therapy. 6. Continuation of digoxin therapy with close monitoring of level. 7. Echocardiography for evaluation of left ventricular systolic function. 8. Antibiotics as per the primary team. Thank you for the kind referral. DEANDRE NELSON M.D. SENTHIL/[id number]
[2017-07-10] MEDS: ATORVASTATIN CA 10 MG TABLET (FP) PO SCH (21:44)
[2017-07-10] MEDS: DONEPEZIL HCL 10 MG TABLET (FP) PO SCH (21:44)
[2017-07-10] MEDS: MELATONIN 1 MG TABLET PO SCH (22:07)
[2017-07-11] MEDS: PIPERACILLIN/TAZOB 3.375 GM 3.375 GM in DEXTROSE 5%-WATER - 100 ML IVPB SCH ×3 (01:36→17:15)
[2017-07-11] MEDS: clonazePAM 0.5 MG TABLET PO SCH ×3 (06:35→21:49)
--- NOTE | 2017-07-11 08:06 | PN ---
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 (short form) - Note 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: Chief Complaint: Events noted, notes reviewed, more awake and alert, denies any chest pain or dyspnea, persistent hemoptysis reported, confused and disoriented but baseline according to the daughter who is at the bedside, remains in atrial fibrillation rate controlled History of Present Illness: seen and examined on telemetry. Events noted, notes reviewed, more awake and alert, denies any chest pain or dyspnea, persistent hemoptysis reported, confused and disoriented but baseline according to the daughter who is at the bedside, remains in atrial fibrillation rate controlled Echocardiography performed 08/23/2016 revealed normal LV size and function, with mild AR and MR - Current Medication List Current Medications Acetaminophen (Tylenol -) 650 mg PO Q6H PRN PRN Reason: PAIN LEVEL 1-5 Last Admin: 07/10/17 17:32 Dose: 650 mg Anastrozole (Arimidex -) 1 mg PO DAILY [facility] Last Admin: 07/10/17 11:54 Dose: 1 mg Atorvastatin Calcium (Lipitor -) 10 mg PO HS [facility] Last Admin: 07/10/17 21:44 Dose: 10 mg Bacitracin (Bacitracin -) 0.9 gm TP DAILY [facility] Last Admin: 07/10/17 10:14 Dose: Not Given Clonazepam (Klonopin -) 0.5 mg PO TID [facility] Last Admin: 07/11/17 06:35 Dose: 0.5 mg Clotrimazole (Lotrimin 1% Solution -) 1 applic TP BID [facility] Last Admin: 07/10/17 21:45 Dose: 1 applic Digoxin (Lanoxin -) 0.125 mg PO DAILY [facility] Last Admin: 07/10/17 11:55 Dose: 0.125 mg Divalproex Sodium (Depakote -) 250 mg PO BID [facility] Donepezil HCl (Aricept -) 10 mg PO HS [facility] Last Admin: 07/10/17 21:44 Dose: 10 mg Escitalopram Oxalate (Lexapro -) 15 mg PO DAILY [facility] Last Admin: 07/10/17 11:55 Dose: 15 mg Piperacillin Sod/Tazobactam (Sod 3.375 gm/ Dextrose) 100 mls @ 200 mls/hr IVPB Q8H-IV [facility] Last Admin: 07/11/17 01:36 Dose: 200 mls/hr Isosorbide Mononitrate (Imdur -) 30 mg PO DAILY [facility] Last Admin: 07/10/17 11:54 Dose: 30 mg Lisinopril (Prinivil) 2.5 mg PO DAILY [facility] Last Admin: 07/10/17 11:55 Dose: 2.5 mg Melatonin (Melatonin) 2 mg PO HS [facility] Last Admin: 07/10/17 22:07 Dose: 2 mg Metoprolol Tartrate (Lopressor -) 25 mg PO BID [facility] Last Admin: 07/10/17 21:45 Dose: 25 mg Pantoprazole Sodium (Protonix Iv) 40 mg IVPUSH DAILY [facility] Last Admin: 07/10/17 10:26 Dose: 40 mg Review of Systems: Unable to obtain related to organic brain syndrome - Objective Vital Signs: Last Vital Signs Temp Pulse Resp BP Pulse Ox 99.1 F 97 H 20 130/66 96 07/11/17 05:39 07/11/17 05:39 07/11/17 05:39 07/11/17 05:39 07/10/17 21:00 Intake & Output 07/08/17 07/09/17 07/10/17 07/11/17 23:59 23:59 23:59 23:59 Intake Total 2670 120 Output Total 30 850 100 Balance -30 1820 20 Weight 154 lb 153 lb 15.992 oz Constitutional: No Distress, Calm Neck: Supple Negative JVD Cardiovascular: S1 S2 Irregularly Irregular No Murmurs Clicks or Gallops Respiratory: Diminished Breath Sounds at the Bases Gastrointestinal: Soft Benign Normal Bowel Sounds Ext: No Edema Labs: Blood test from this AM pending Assessment/Plan ASSESSMENT: 1. Clinical presentation is consistent with aspiration pneumonia, hemoptysis, complicated by sepsis syndrome and lactic acidosis, resolving 2. CAD angina pectoris history of demand ischemic injury 3. Diastolic LV dysfunction with chronic class 0-I NYHA classification LV failure, compensated/euvolemic, probably hypovolemic 4. Persistent atrial fibrillation rate controlled on NOAC's, held for hemoptysis 5. HTN 6. Hyperlipidemia 7. Organic brain syndrome/dementia 8. Anemia 9. History of breast carcinoma PLAN: 1. Resume Xarelto once hemostasis is achieved (resolution of hemoptysis) 2. Continue Lopressor 3. Continue Lisinopril 4. Continue Imdur 5. Continue Lipitor 6. Continue Digoxin with close monitoring of level 7. Echocardiography to evaluate LV systolic function 8. Antibiotics as per the primary team Skip Childs MD
[2017-07-11 08:35] LABS: BASO % 0.3 % (0-2.0); EOS % 1.3 % (0-4.5); HEMATOCRIT 29.8 % (32.4-45.2); HEMOGLOBIN 9.7 GM/dL (10.7-15.3); LYMPH % 6.5 % (8-40); MCH 30.7 pg (25.7-33.7); MCHC 32.5 g/dl (32.0-36.0); MEAN CELL VOLUME 94.3 fl (80-96); MEAN PLT VOLUME 8.7 fl (7.5-11.1); MONO % 3.8 % (3.8-10.2); NEUT % 88.1 % (42.8-82.8); PLATELET COUNT 237 K/MM3 (134-434); RBC 3.16 M/mm3 (3.60-5.2); RDW 14.8 % (11.6-15.6); WHITE BLOOD COUNT 10.9 K/mm3 (4.0-10.0)
[2017-07-11 08:43] LABS: CHLORIDE 106 mmol/L (98-107); POTASSIUM 3.8 mmol/L (3.5-5.1); SODIUM 144 mmol/L (136-145)
[2017-07-11 09:10] LABS: ALBUMIN 2.3 g/dl (3.4-5.0); ALK PHOS 90 U/L (45-117); ANION GAP 11 (8-16); BILIRUBIN,TOTAL 1.2 mg/dL (0.2-1.0); BLOOD UREA NITROGEN 30 mg/dL (7-18); CALCIUM 8.7 mg/dL (8.5-10.1); CO2 27 mmol/L (21-32); CREATININE 0.9 mg/dL (0.55-1.02); GLUCOSE,RANDOM 88 mg/dL (74-106); SGOT/AST 40 U/L (15-37); SGPT/ALT 26 U/L (12-78); TOT PROT 5.8 g/dl (6.4-8.2)
[2017-07-11] MEDS: ACETAMINOPHEN 325 MG TABLET (FP) PO PRN ×2 (09:58→20:46)
[2017-07-11] MEDS: METOPROLOL TARTRATE 25 MG TABLET (FP) PO SCH ×2 (09:59→21:49)
[2017-07-11] MEDS: ESCITALOPRAM OXALATE 10 MG TABLET (FP) PO SCH (09:59)
[2017-07-11] MEDS: ANASTROZOLE 1 MG TABLET PO SCH (09:59)
[2017-07-11] MEDS: ISOSORBIDE MONONITRATE 30 MG TAB.SR.24H (FP) PO SCH (09:59)
[2017-07-11] MEDS: LISINOPRIL 5 MG TABLET (FP) PO SCH (10:00)
[2017-07-11] MEDS: DIGOXIN 0.125 MG TABLET (FP) PO SCH (10:00)
[2017-07-11] MEDS: DIVALPROEX SODIUM 250 MG TABLET E.C. (FP) PO SCH ×2 (10:01→21:50)
[2017-07-11] MEDS: PANTOPRAZOLE SODIUM 40 MG VIAL IVPUSH SCH (10:01)
--- NOTE | 2017-07-11 11:06 | PN ---
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 (short form) - Note 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: pt seen / examined looks better. poor historian poor respiratory effort family at bedside Vital Signs Temp 99.1 F 07/11/17 05:39 Pulse 104 H 07/11/17 10:00 Resp 20 07/11/17 05:39 BP 130/66 07/11/17 05:39 Pulse Ox 96 07/10/17 21:00 Intake & Output 07/10/17 07/10/17 07/11/17 11:59 23:59 11:59 Intake Total 1000 1670 120 Output Total 750 100 100 Balance 250 1570 20 Weight 153 lb 15.992 oz Intake: IV 1000 1200 D5-1/2NS+20 MEQ KCL - 20 1000 1200 meq In 1,000 ml @ 100 mls /hr IV ASDIR [facility] Rx#: [id number] IVPB 350 Oral 120 120 Output: Urine 750 100 100 Hicks 750 100 100 Other: Voiding Method Indwelling Catheter Indwelling Catheter Indwelling Catheter Bowel Movement Yes Height 5 ft 7 in Body Mass Index (BMI) 24.1 Active Medications Acetaminophen (Tylenol -) 650 mg PO Q6H PRN PRN Reason: PAIN LEVEL 1-5 Last Admin: 07/11/17 09:58 Dose: 650 mg Anastrozole (Arimidex -) 1 mg PO DAILY [facility] Last Admin: 07/11/17 09:59 Dose: 1 mg Atorvastatin Calcium (Lipitor -) 10 mg PO HS [facility] Last Admin: 07/10/17 21:44 Dose: 10 mg Bacitracin (Bacitracin -) 0.9 gm TP DAILY [facility] Last Admin: 07/10/17 10:14 Dose: Not Given Clonazepam (Klonopin -) 0.5 mg PO TID [facility] Last Admin: 07/11/17 06:35 Dose: 0.5 mg Clotrimazole (Lotrimin 1% Solution -) 1 applic TP BID [facility] Last Admin: 07/10/17 21:45 Dose: 1 applic Digoxin (Lanoxin -) 0.125 mg PO DAILY [facility] Last Admin: 07/11/17 10:00 Dose: 0.125 mg Divalproex Sodium (Depakote -) 250 mg PO BID [facility] Last Admin: 07/11/17 10:01 Dose: 250 mg Donepezil HCl (Aricept -) 10 mg PO HS [facility] Last Admin: 07/10/17 21:44 Dose: 10 mg Escitalopram Oxalate (Lexapro -) 15 mg PO DAILY [facility] Last Admin: 07/11/17 09:59 Dose: 15 mg Piperacillin Sod/Tazobactam (Sod 3.375 gm/ Dextrose) 100 mls @ 200 mls/hr IVPB Q8H-IV [facility] Last Admin: 07/11/17 09:59 Dose: 200 mls/hr Isosorbide Mononitrate (Imdur -) 30 mg PO DAILY [facility] Last Admin: 07/11/17 09:59 Dose: 30 mg Lisinopril (Prinivil) 5 mg PO DAILY [facility] Last Admin: 07/11/17 10:00 Dose: 5 mg Melatonin (Melatonin) 2 mg PO HS [facility] Last Admin: 07/10/17 22:07 Dose: 2 mg Metoprolol Tartrate (Lopressor -) 25 mg PO BID [facility] Last Admin: 07/11/17 09:59 Dose: 25 mg Pantoprazole Sodium (Protonix Iv) 40 mg IVPUSH DAILY [facility] Last Admin: 07/11/17 10:01 Dose: 40 mg Rivaroxaban (Xarelto -) 20 mg PO DAILY@1800 [facility] CBC, BMP 07/11/17 06:20 07/11/17 06:20 Microbiology 07/09/17 11:32 Blood Culture - Preliminary Blood - Peripheral Venous NO GROWTH OBTAINED AFTER 24 HOURS, INCUBATION TO CONTINUE FOR 4 DAYS. 07/09/17 11:32 Blood Culture - Preliminary Blood - Peripheral Venous NO GROWTH OBTAINED AFTER 24 HOURS, INCUBATION TO CONTINUE FOR 4 DAYS. 07/09/17 12:00 Urine Culture - Final Urine - Urine Clean Catch NO GROWTH OBTAINED Physical Examination Constitutional: Yes: awake/ no distress. de saturates on Room air Eyes: Yes: Conjunctiva Clear Neck: Yes: Supple/ no jvd Cardiovascular: Yes: Pulse Irregular Respiratory: Yes: Diminished (at bases) Gastrointestinal: Yes: Soft/ non tender Edema: No Imaging - Results Chest X-ray: Report Reviewed EKG: Report Reviewed Assessment/Plan Clinically stable continue abx- oxygen. eating well per family daily oob - chair. will follow. overall condition gaurded but improved. pt is dnr/di Problem List - Problems (1) Sepsis Code(s): A41.9 - SEPSIS, UNSPECIFIED ORGANISM Qualifiers: Sepsis type: sepsis due to unspecified organism Qualified Code(s): A41.9 - Sepsis, unspecified organism (2) Atrial fibrillation Code(s): I48.91 - UNSPECIFIED ATRIAL FIBRILLATION Qualifiers: Atrial fibrillation type: persistent Qualified Code(s): I48.1 - Persistent atrial fibrillation (3) Dementia Code(s): F03.90 - UNSPECIFIED DEMENTIA WITHOUT BEHAVIORAL DISTURBANCE Qualifiers: Dementia type: unspecified type Dementia behavioral disturbance: without behavioral disturbance Qualified Code(s): F03.90 - Unspecified dementia without behavioral disturbance
--- NOTE | 2017-07-11 11:39 | PN ---
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, Physician History of Present Illness: pulmonary awake,comfortable,less hemoptysis. chest x-ray rul infiltrate. O2 SAT 85% ON RA - Current Medication List Current Medications: Active Medications Acetaminophen (Tylenol -) 650 mg PO Q6H PRN PRN Reason: PAIN LEVEL 1-5 Last Admin: 07/11/17 09:58 Dose: 650 mg Anastrozole (Arimidex -) 1 mg PO DAILY [facility] Last Admin: 07/11/17 09:59 Dose: 1 mg Atorvastatin Calcium (Lipitor -) 10 mg PO HS [facility] Last Admin: 07/10/17 21:44 Dose: 10 mg Bacitracin (Bacitracin -) 0.9 gm TP DAILY [facility] Last Admin: 07/10/17 10:14 Dose: Not Given Clonazepam (Klonopin -) 0.5 mg PO TID [facility] Last Admin: 07/11/17 06:35 Dose: 0.5 mg Clotrimazole (Lotrimin 1% Solution -) 1 applic TP BID [facility] Last Admin: 07/10/17 21:45 Dose: 1 applic Digoxin (Lanoxin -) 0.125 mg PO DAILY [facility] Last Admin: 07/11/17 10:00 Dose: 0.125 mg Divalproex Sodium (Depakote -) 250 mg PO BID [facility] Last Admin: 07/11/17 10:01 Dose: 250 mg Donepezil HCl (Aricept -) 10 mg PO HS [facility] Last Admin: 07/10/17 21:44 Dose: 10 mg Escitalopram Oxalate (Lexapro -) 15 mg PO DAILY [facility] Last Admin: 07/11/17 09:59 Dose: 15 mg Piperacillin Sod/Tazobactam (Sod 3.375 gm/ Dextrose) 100 mls @ 200 mls/hr IVPB Q8H-IV [facility] Last Admin: 07/11/17 09:59 Dose: 200 mls/hr Isosorbide Mononitrate (Imdur -) 30 mg PO DAILY [facility] Last Admin: 07/11/17 09:59 Dose: 30 mg Lisinopril (Prinivil) 5 mg PO DAILY [facility] Last Admin: 07/11/17 10:00 Dose: 5 mg Melatonin (Melatonin) 2 mg PO HS [facility] Last Admin: 07/10/17 22:07 Dose: 2 mg Metoprolol Tartrate (Lopressor -) 25 mg PO BID [facility] Last Admin: 01/15/18 09:59 Dose: 25 mg Pantoprazole Sodium (Protonix Iv) 40 mg IVPUSH DAILY [facility] Last Admin: 07/11/17 10:01 Dose: 40 mg Rivaroxaban (Xarelto -) 20 mg PO DAILY@1800 [facility] - Objective Vital Signs: Vital Signs Temperature 99.1 F 07/11/17 05:39 Pulse Rate 104 H 07/11/17 10:00 Respiratory Rate 20 07/11/17 05:39 Blood Pressure 130/66 07/11/17 05:39 O2 Sat by Pulse Oximetry (%) 96 07/10/17 21:00 Constitutional: Yes: Well Nourished, Calm Eyes: Yes: WNL HENT: Yes: WNL Neck: Yes: WNL Cardiovascular: Yes: Pulse Irregular, S1, S2 Respiratory: Yes: Diminished (poor inspiratory effort) Gastrointestinal: Yes: Normal Bowel Sounds, Soft Extremities: Yes: WNL Edema: No Labs: CBC, BMP 07/11/17 06:20 07/11/17 06:20 INR, PTT INR 1.42 (0.82-1.09) H 07/09/17 11:32 Assessment/Plan Problem List - Problems (1) Acute respiratory failure with hypoxia Code(s): J96.01 - ACUTE RESPIRATORY FAILURE WITH HYPOXIA (2) Pneumonia Code(s): J18.9 - PNEUMONIA, UNSPECIFIED ORGANISM (3) Sepsis Code(s): A41.9 - SEPSIS, UNSPECIFIED ORGANISM Qualifiers: Sepsis type: sepsis due to unspecified organism Qualified Code(s): A41.9 - Sepsis, unspecified organism (4) Atrial fibrillation Code(s): I48.91 - UNSPECIFIED ATRIAL FIBRILLATION Qualifiers: Atrial fibrillation type: persistent Qualified Code(s): I48.1 - Persistent atrial fibrillation (5) Coronary artery disease Code(s): I25.10 - ATHSCL HEART DISEASE OF [place] CORONARY ARTERY W/O ANG PCTRS Qualifiers: Coronary Disease-Associated Artery/Lesion type: [place] artery [place] vs. transplanted heart: [place] heart Associated angina: without angina Qualified Code(s): I25.10 - Atherosclerotic heart disease of [place] coronary artery without angina pectoris (6) Dementia Code(s): F03.90 - UNSPECIFIED DEMENTIA WITHOUT BEHAVIORAL DISTURBANCE Qualifiers: Dementia type: unspecified type Dementia behavioral disturbance: without behavioral disturbance Qualified Code(s): F03.90 - Unspecified dementia without behavioral disturbance (7) Lactic acidosis Code(s): E87.2 - ACIDOSIS Assessment/Plan Acute Hypoxic Respiratory Failure Pneumonia Sepsis Lactic Acidosis resolved Hemoptysis CAD Atrial Fibrillation with RVR CHF Dementia - continue IV antibiotics - O2 to keep Spo2 >90% - inhaled bronchodilators - aspiration precautions - IVF - PO as tolerated - DVT prophylaxis DR JASSO
[2017-07-11] MEDS: BACITRACIN 0.9 GM PACKET TP SCH (15:12)
[2017-07-11] MEDS: CLOTRIMAZOLE 1%TOPICAL SOLUTION 30 ML BOTTLE TP SCH ×2 (15:12→21:51)
[2017-07-11] MEDS: RIVAROXABAN 20 MG TABLET PO SCH (17:15)
[2017-07-11] MEDS: DONEPEZIL HCL 10 MG TABLET (FP) PO SCH (21:49)
[2017-07-11] MEDS: ATORVASTATIN CA 10 MG TABLET (FP) PO SCH (21:49)
[2017-07-11] MEDS: MELATONIN 1 MG TABLET PO SCH (22:28)
[2017-07-12] MEDS: PIPERACILLIN/TAZOB 3.375 GM 3.375 GM in DEXTROSE 5%-WATER - 100 ML IVPB SCH ×3 (01:30→17:54)
[2017-07-12] MEDS: clonazePAM 0.5 MG TABLET PO SCH ×3 (06:04→22:19)
--- NOTE | 2017-07-12 07:12 | PN ---
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, Physician History of Present Illness: patient spiking low grade fever received tyelnol rll infiltrate son in the room - Current Medication List Current Medications: Active Medications Acetaminophen (Tylenol -) 650 mg PO Q6H PRN PRN Reason: PAIN LEVEL 1-5 Last Admin: 07/11/17 20:46 Dose: 650 mg Anastrozole (Arimidex -) 1 mg PO DAILY [facility] Last Admin: 07/11/17 09:59 Dose: 1 mg Atorvastatin Calcium (Lipitor -) 10 mg PO HS [facility] Last Admin: 07/11/17 21:49 Dose: 10 mg Bacitracin (Bacitracin -) 1 applic TP DAILY [facility] Clonazepam (Klonopin -) 0.5 mg PO TID [facility] Last Admin: 07/12/17 06:04 Dose: 0.5 mg Clotrimazole (Lotrimin 1% Solution -) 1 applic TP BID [facility] Last Admin: 07/11/17 21:51 Dose: 1 applic Digoxin (Lanoxin -) 0.125 mg PO DAILY [facility] Last Admin: 07/11/17 10:00 Dose: 0.125 mg Divalproex Sodium (Depakote -) 250 mg PO BID [facility] Last Admin: 07/11/17 21:50 Dose: 250 mg Donepezil HCl (Aricept -) 10 mg PO HS [facility] Last Admin: 07/11/17 21:49 Dose: 10 mg Escitalopram Oxalate (Lexapro -) 15 mg PO DAILY [facility] Last Admin: 07/11/17 09:59 Dose: 15 mg Piperacillin Sod/Tazobactam (Sod 3.375 gm/ Dextrose) 100 mls @ 200 mls/hr IVPB Q8H-IV [facility] Last Admin: 07/12/17 01:30 Dose: 200 mls/hr Vancomycin HCl 1,250 mg/ (Dextrose) 250 mls @ 250 mls/hr IVPB DAILY [facility] PRN Reason: Protocol Isosorbide Mononitrate (Imdur -) 30 mg PO DAILY [facility] Last Admin: 07/11/17 09:59 Dose: 30 mg Lisinopril (Prinivil) 5 mg PO DAILY [facility] Last Admin: 07/11/17 10:00 Dose: 5 mg Melatonin (Melatonin) 2 mg PO HS [facility] Last Admin: 07/11/17 22:28 Dose: 2 mg Metoprolol Tartrate (Lopressor -) 25 mg PO BID [facility] Last Admin: 07/11/17 21:49 Dose: 25 mg Pantoprazole Sodium (Protonix Iv) 40 mg IVPUSH DAILY [facility] Last Admin: 07/11/17 10:01 Dose: 40 mg Rivaroxaban (Xarelto -) 20 mg PO DAILY@1800 [facility] Last Admin: 07/11/17 17:15 Dose: 20 mg - Objective Vital Signs: Vital Signs Temperature 99 F 07/12/17 06:00 Pulse Rate 88 07/12/17 06:00 Respiratory Rate 20 07/12/17 06:00 Blood Pressure 129/77 07/12/17 06:00 O2 Sat by Pulse Oximetry (%) 94 L 07/11/17 21:00 Constitutional: Yes: Calm, Anxious Cardiovascular: Yes: Pulse Irregular Respiratory: Yes: On Nasal O2, Poor Air Entry, Rhonchi Extremities: Yes: WNL Neurological: Yes: Alert Labs: INR, PTT INR 1.42 (0.82-1.09) H 07/09/17 11:32 - ....Imaging Chest X-ray: Report Reviewed, Image Reviewed Assessment/Plan after looking at the history i strongly suspect patient has aspiration pna which probably led to the symptoms Problem List - Problems (1) Sepsis Code(s): A41.9 - SEPSIS, UNSPECIFIED ORGANISM Qualifiers: Sepsis type: sepsis due to unspecified organism Qualified Code(s): A41.9 - Sepsis, unspecified organism (2) Atrial fibrillation Code(s): I48.91 - UNSPECIFIED ATRIAL FIBRILLATION Qualifiers: Atrial fibrillation type: persistent Qualified Code(s): I48.1 - Persistent atrial fibrillation (3) Dementia Code(s): F03.90 - UNSPECIFIED DEMENTIA WITHOUT BEHAVIORAL DISTURBANCE Qualifiers: Dementia type: unspecified type Dementia behavioral disturbance: without behavioral disturbance Qualified Code(s): F03.90 - Unspecified dementia without behavioral disturbance 4) asp pna 5 lactic acidosis 6 leukocytosis 7 dehydration plan continue abx if patient spikes fever again will broaden coverage with vanco monitor wbc rest continue current mgmt
[2017-07-12 07:13] LABS: BASO % 0.5 % (0-2.0); HEMOGLOBIN 9.1 GM/dL (10.7-15.3); LYMPH % 13.6 % (8-40); MCH 31.4 pg (25.7-33.7); MCHC 33.6 g/dl (32.0-36.0); MEAN CELL VOLUME 93.6 fl (80-96); MEAN PLT VOLUME 8.3 fl (7.5-11.1); MONO % 5.7 % (3.8-10.2); NEUT % 76.2 % (42.8-82.8); PLATELET COUNT 228 K/MM3 (134-434); RBC 2.89 M/mm3 (3.60-5.2); RDW 14.5 % (11.6-15.6); WHITE BLOOD COUNT 8.6 K/mm3 (4.0-10.0)
[2017-07-12 07:36] LABS: ANION GAP 8 (8-16); BLOOD UREA NITROGEN 25 mg/dL (7-18); CALCIUM 7.7 mg/dL (8.5-10.1); CHLORIDE 106 mmol/L (98-107); CO2 29 mmol/L (21-32); CREATININE 0.7 mg/dL (0.55-1.02); GLUCOSE,RANDOM 79 mg/dL (74-106); POTASSIUM 3.5 mmol/L (3.5-5.1); SODIUM 143 mmol/L (136-145)
--- NOTE | 2017-07-12 07:52 | PN ---
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 (short form) - Note 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: Chief Complaint: Events noted, notes reviewed, awake and alert, denies any chest pain or dyspnea, no further hemptysis reported, confused and disoriented but baseline according to the son who is at the bedside, remains in atrial fibrillation rate controlled History of Present Illness: seen and examined on telemetry. Events noted, notes reviewed, awake and alert, denies any chest pain or dyspnea, no further hemptysis reported, confused and disoriented but baseline according to the son who is at the bedside, remains in atrial fibrillation rate controlled Echocardiography performed 08/23/2016 revealed normal LV size and function, with mild AR and MR - Current Medication List Current Medications Acetaminophen (Tylenol -) 650 mg PO Q6H PRN PRN Reason: PAIN LEVEL 1-5 Last Admin: 07/11/17 20:46 Dose: 650 mg Anastrozole (Arimidex -) 1 mg PO DAILY [facility] Last Admin: 07/11/17 09:59 Dose: 1 mg Atorvastatin Calcium (Lipitor -) 10 mg PO HS [facility] Last Admin: 07/11/17 21:49 Dose: 10 mg Bacitracin (Bacitracin -) 1 applic TP DAILY [facility] Clonazepam (Klonopin -) 0.5 mg PO TID [facility] Last Admin: 07/12/17 06:04 Dose: 0.5 mg Clotrimazole (Lotrimin 1% Solution -) 1 applic TP BID [facility] Last Admin: 07/11/17 21:51 Dose: 1 applic Digoxin (Lanoxin -) 0.125 mg PO DAILY [facility] Last Admin: 07/11/17 10:00 Dose: 0.125 mg Divalproex Sodium (Depakote -) 250 mg PO BID [facility] Last Admin: 07/11/17 21:50 Dose: 250 mg Donepezil HCl (Aricept -) 10 mg PO HS [facility] Last Admin: 07/11/17 21:49 Dose: 10 mg Escitalopram Oxalate (Lexapro -) 15 mg PO DAILY [facility] Last Admin: 07/11/17 09:59 Dose: 15 mg Piperacillin Sod/Tazobactam (Sod 3.375 gm/ Dextrose) 100 mls @ 200 mls/hr IVPB Q8H-IV [facility] Last Admin: 07/12/17 01:30 Dose: 200 mls/hr Vancomycin HCl 1,250 mg/ (Dextrose) 250 mls @ 250 mls/hr IVPB DAILY [facility] PRN Reason: Protocol Isosorbide Mononitrate (Imdur -) 30 mg PO DAILY [facility] Last Admin: 07/11/17 09:59 Dose: 30 mg Lisinopril (Prinivil) 5 mg PO DAILY [facility] Last Admin: 07/11/17 10:00 Dose: 5 mg Melatonin (Melatonin) 2 mg PO HS [facility] Last Admin: 07/11/17 22:28 Dose: 2 mg Metoprolol Tartrate (Lopressor -) 25 mg PO BID [facility] Last Admin: 07/11/17 21:49 Dose: 25 mg Pantoprazole Sodium (Protonix Iv) 40 mg IVPUSH DAILY [facility] Last Admin: 07/11/17 10:01 Dose: 40 mg Rivaroxaban (Xarelto -) 20 mg PO DAILY@1800 [facility] Last Admin: 07/11/17 17:15 Dose: 20 mg Review of Systems: Unable to obtain related to organic brain syndrome - Objective Vital Signs: Last Vital Signs Temp Pulse Resp BP Pulse Ox 99 F 88 20 129/77 94 L 07/12/17 06:00 07/12/17 06:00 07/12/17 06:00 07/12/17 06:00 07/11/17 21:00 Intake & Output 07/09/17 07/10/17 07/11/17 07/12/17 23:59 23:59 23:59 23:59 Intake Total 2670 510 120 Output Total 30 850 500 Balance -30 1820 10 120 Weight 154 lb 153 lb 15.992 oz Constitutional: No Distress, Calm Neck: Supple Negative JVD Cardiovascular: S1 S2 Irregularly Irregular No Murmurs Clicks or Gallops Respiratory: Diminished Breath Sounds at the Bases Gastrointestinal: Soft Benign Normal Bowel Sounds Ext: No Edema Labs: CBC, BMP 07/12/17 06:17 07/12/17 06:17 Assessment/Plan ASSESSMENT: 1. Clinical presentation is consistent with aspiration pneumonia, hemoptysis ( resolved), complicated by sepsis syndrome and lactic acidosis, resolving 2. CAD angina pectoris history of demand ischemic injury 3. Diastolic LV dysfunction with chronic class 0-I NYHA classification LV failure, compensated/euvolemic 4. Persistent atrial fibrillation rate controlled on NOAC's/Xarelto, therapy resumed post resolution of hemoptysis 5. HTN 6. Hyperlipidemia 7. Organic brain syndrome/dementia 8. Anemia 9. History of breast carcinoma PLAN: 1. Continue Xarelto with close monitoring of CBC 2. Continue Lopressor 3. Continue Lisinopril 4. Continue Imdur 5. Continue Lipitor 6. Continue Digoxin with close monitoring of level 7. Echocardiography to evaluate LV systolic function 8. Antibiotics as per the primary team Skip Childs MD
--- NOTE | 2017-07-12 09:37 | PN ---
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 (short form) - Note 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: pt seen/ examined comfortable anxious - wants to go back poor histrian. spiked temp last night.- 101.3 started on vanco by i/d Vital Signs Temp 98.3 F 07/12/17 08:43 Pulse 83 07/12/17 08:43 Resp 18 07/12/17 08:43 BP 144/86 07/12/17 08:43 Pulse Ox 94 L 07/11/17 21:00 Intake & Output 07/11/17 07/11/17 07/12/17 11:59 23:59 11:59 Intake Total 270 240 120 Output Total 100 400 Balance 170 -160 120 Intake: IVPB 50 Oral 220 240 120 Output: Urine 100 400 Hicks 100 400 Other: Voiding Method Indwelling Catheter Indwelling Catheter Bowel Movement No Yes: Small Active Medications Acetaminophen (Tylenol -) 650 mg PO Q6H PRN PRN Reason: PAIN LEVEL 1-5 Last Admin: 07/11/17 20:46 Dose: 650 mg Anastrozole (Arimidex -) 1 mg PO DAILY [facility] Last Admin: 07/11/17 09:59 Dose: 1 mg Atorvastatin Calcium (Lipitor -) 10 mg PO HS [facility] Last Admin: 07/11/17 21:49 Dose: 10 mg Bacitracin (Bacitracin -) 1 applic TP DAILY [facility] Clonazepam (Klonopin -) 0.5 mg PO TID [facility] Last Admin: 07/12/17 06:04 Dose: 0.5 mg Clotrimazole (Lotrimin 1% Solution -) 1 applic TP BID [facility] Last Admin: 07/11/17 21:51 Dose: 1 applic Digoxin (Lanoxin -) 0.125 mg PO DAILY [facility] Last Admin: 07/11/17 10:00 Dose: 0.125 mg Divalproex Sodium (Depakote -) 250 mg PO BID [facility] Last Admin: 07/11/17 21:50 Dose: 250 mg Donepezil HCl (Aricept -) 10 mg PO HS [facility] Last Admin: 07/11/17 21:49 Dose: 10 mg Escitalopram Oxalate (Lexapro -) 15 mg PO DAILY [facility] Last Admin: 07/11/17 09:59 Dose: 15 mg Piperacillin Sod/Tazobactam (Sod 3.375 gm/ Dextrose) 100 mls @ 200 mls/hr IVPB Q8H-IV [facility] Last Admin: 07/12/17 01:30 Dose: 200 mls/hr Vancomycin HCl 1,250 mg/ (Dextrose) 250 mls @ 166.667 mls/hr IVPB DAILY [facility] PRN Reason: Protocol Isosorbide Mononitrate (Imdur -) 30 mg PO DAILY [facility] Last Admin: 07/11/17 09:59 Dose: 30 mg Lisinopril (Prinivil) 5 mg PO DAILY [facility] Last Admin: 07/11/17 10:00 Dose: 5 mg Melatonin (Melatonin) 2 mg PO HS [facility] Last Admin: 07/11/17 22:28 Dose: 2 mg Metoprolol Tartrate (Lopressor -) 25 mg PO BID [facility] Last Admin: 07/11/17 21:49 Dose: 25 mg Pantoprazole Sodium (Protonix Iv) 40 mg IVPUSH DAILY [facility] Last Admin: 07/11/17 10:01 Dose: 40 mg Rivaroxaban (Xarelto -) 20 mg PO DAILY@1800 [facility] Last Admin: 07/11/17 17:15 Dose: 20 mg CBC, BMP 07/12/17 06:17 07/12/17 06:17 Microbiology 07/10/17 18:00 Clostridium difficile Antigen (SARINA) - Final Stool Clostridium difficile Toxin Assay - Final 07/09/17 11:32 Blood Culture - Preliminary Blood - Peripheral Venous NO GROWTH OBTAINED AFTER 48 HOURS, INCUBATION TO CONTINUE FOR 3 DAYS. 07/09/17 11:32 Blood Culture - Preliminary Blood - Peripheral Venous NO GROWTH OBTAINED AFTER 48 HOURS, INCUBATION TO CONTINUE FOR 3 DAYS. cxr-- rul - pneumonia Physical Examination Constitutional: Yes: awake/ no distress. anxious. Eyes: Yes: Conjunctiva Clear Neck: Yes: Supple/ no jvd Cardiovascular: Yes: Pulse Irregular Respiratory: Yes: Diminished (at bases) Gastrointestinal: Yes: Soft/ non tender Edema: No Imaging - Results Chest X-ray: Report Reviewed EKG: Report Reviewed Assessment/Plan Clinically stable. continue abx-per i/d oxygen. daily oob - chair. will follow. overall condition gaurded pulmonary/ i/d/ cardiology on board. pt is dnr/di. Problem List - Problems (1) Sepsis Code(s): A41.9 - SEPSIS, UNSPECIFIED ORGANISM Qualifiers: Sepsis type: sepsis due to unspecified organism Qualified Code(s): A41.9 - Sepsis, unspecified organism (2) Atrial fibrillation Code(s): I48.91 - UNSPECIFIED ATRIAL FIBRILLATION Qualifiers: Atrial fibrillation type: persistent Qualified Code(s): I48.1 - Persistent atrial fibrillation (3) Dementia Code(s): F03.90 - UNSPECIFIED DEMENTIA WITHOUT BEHAVIORAL DISTURBANCE Qualifiers: Dementia type: unspecified type Dementia behavioral disturbance: without behavioral disturbance Qualified Code(s): F03.90 - Unspecified dementia without behavioral disturbance (4) Pneumonia Code(s): J18.9 - PNEUMONIA, UNSPECIFIED ORGANISM
[2017-07-12] MEDS: VANCOMYCIN 1,250 MG in DEXTROSE 5%-WATER - 250 ML IVPB SCH (10:28)
[2017-07-12] MEDS: ISOSORBIDE MONONITRATE 30 MG TAB.SR.24H (FP) PO SCH (10:29)
[2017-07-12] MEDS: PANTOPRAZOLE SODIUM 40 MG VIAL IVPUSH SCH (10:29)
[2017-07-12] MEDS: DIGOXIN 0.125 MG TABLET (FP) PO SCH (10:29)
[2017-07-12] MEDS: METOPROLOL TARTRATE 25 MG TABLET (FP) PO SCH ×2 (10:31→22:19)
[2017-07-12] MEDS: ESCITALOPRAM OXALATE 10 MG TABLET (FP) PO SCH (10:31)
[2017-07-12] MEDS: LISINOPRIL 5 MG TABLET (FP) PO SCH (10:31)
--- NOTE | 2017-07-12 10:40 | PN ---
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, Physician History of Present Illness: pulmonary alert,nad,sob - Current Medication List Current Medications: Active Medications Acetaminophen (Tylenol -) 650 mg PO Q6H PRN PRN Reason: PAIN LEVEL 1-5 Last Admin: 07/11/17 20:46 Dose: 650 mg Anastrozole (Arimidex -) 1 mg PO DAILY [facility] Last Admin: 07/11/17 09:59 Dose: 1 mg Atorvastatin Calcium (Lipitor -) 10 mg PO HS [facility] Last Admin: 07/11/17 21:49 Dose: 10 mg Bacitracin (Bacitracin -) 1 applic TP DAILY [facility] Clonazepam (Klonopin -) 0.5 mg PO TID [facility] Last Admin: 07/12/17 06:04 Dose: 0.5 mg Clotrimazole (Lotrimin 1% Solution -) 1 applic TP BID [facility] Last Admin: 07/11/17 21:51 Dose: 1 applic Digoxin (Lanoxin -) 0.125 mg PO DAILY [facility] Last Admin: 07/11/17 10:00 Dose: 0.125 mg Divalproex Sodium (Depakote -) 250 mg PO BID [facility] Last Admin: 07/11/17 21:50 Dose: 250 mg Donepezil HCl (Aricept -) 10 mg PO HS [facility] Last Admin: 07/11/17 21:49 Dose: 10 mg Escitalopram Oxalate (Lexapro -) 15 mg PO DAILY [facility] Last Admin: 07/11/17 09:59 Dose: 15 mg Piperacillin Sod/Tazobactam (Sod 3.375 gm/ Dextrose) 100 mls @ 200 mls/hr IVPB Q8H-IV [facility] Last Admin: 07/12/17 01:30 Dose: 200 mls/hr Vancomycin HCl 1,250 mg/ (Dextrose) 250 mls @ 166.667 mls/hr IVPB DAILY [facility] PRN Reason: Protocol Isosorbide Mononitrate (Imdur -) 30 mg PO DAILY [facility] Last Admin: 07/11/17 09:59 Dose: 30 mg Lisinopril (Prinivil) 5 mg PO DAILY [facility] Last Admin: 07/11/17 10:00 Dose: 5 mg Melatonin (Melatonin) 2 mg PO HS [facility] Last Admin: 07/11/17 22:28 Dose: 2 mg Metoprolol Tartrate (Lopressor -) 25 mg PO BID [facility] Last Admin: 07/11/17 21:49 Dose: 25 mg Pantoprazole Sodium (Protonix Iv) 40 mg IVPUSH DAILY [facility] Last Admin: 07/11/17 10:01 Dose: 40 mg Rivaroxaban (Xarelto -) 20 mg PO DAILY@1800 [facility] Last Admin: 07/11/17 17:15 Dose: 20 mg - Objective Vital Signs: Vital Signs Temperature 98.3 F 07/12/17 08:43 Pulse Rate 83 07/12/17 08:43 Respiratory Rate 18 07/12/17 08:43 Blood Pressure 144/86 07/12/17 08:43 O2 Sat by Pulse Oximetry (%) 94 L 07/11/17 21:00 Constitutional: Yes: Well Nourished, Calm Eyes: Yes: WNL HENT: Yes: WNL Neck: Yes: WNL Cardiovascular: Yes: Pulse Irregular, S1, S2 Respiratory: Yes: Diminished, Rhonchi (few rhonchi) Gastrointestinal: Yes: Normal Bowel Sounds, Soft Extremities: Yes: WNL Edema: No Labs: CBC, BMP 07/12/17 06:17 07/12/17 06:17 INR, PTT INR 1.42 (0.82-1.09) H 07/09/17 11:32 Assessment/Plan Problem List - Problems (1) Acute respiratory failure with hypoxia Code(s): J96.01 - ACUTE RESPIRATORY FAILURE WITH HYPOXIA (2) Pneumonia Code(s): J18.9 - PNEUMONIA, UNSPECIFIED ORGANISM (3) Sepsis Code(s): A41.9 - SEPSIS, UNSPECIFIED ORGANISM Qualifiers: Sepsis type: sepsis due to unspecified organism Qualified Code(s): A41.9 - Sepsis, unspecified organism (4) Atrial fibrillation Code(s): I48.91 - UNSPECIFIED ATRIAL FIBRILLATION Qualifiers: Atrial fibrillation type: persistent Qualified Code(s): I48.1 - Persistent atrial fibrillation (5) Coronary artery disease Code(s): I25.10 - ATHSCL HEART DISEASE OF [place] CORONARY ARTERY W/O ANG PCTRS Qualifiers: Coronary Disease-Associated Artery/Lesion type: [place] artery [place] vs. transplanted heart: [place] heart Associated angina: without angina Qualified Code(s): I25.10 - Atherosclerotic heart disease of [place] coronary artery without angina pectoris (6) Dementia Code(s): F03.90 - UNSPECIFIED DEMENTIA WITHOUT BEHAVIORAL DISTURBANCE Qualifiers: Dementia type: unspecified type Dementia behavioral disturbance: without behavioral disturbance Qualified Code(s): F03.90 - Unspecified dementia without behavioral disturbance (7) Lactic acidosis Code(s): E87.2 - ACIDOSIS Assessment/Plan Acute Hypoxic Respiratory Failure improving Pneumonia clinically improving Sepsis Lactic Acidosis resolved Hemoptysis CAD Atrial Fibrillation with RVR CHF Dementia - IV antibiotics - O2 to keep Spo2 >90% - inhaled bronchodilators - aspiration precautions - IVF - PO as tolerated - DVT prophylaxis DR JASSO
[2017-07-12] MEDS: DIVALPROEX SODIUM 250 MG TABLET E.C. (FP) PO SCH ×2 (11:16→22:19)
[2017-07-12] MEDS: ANASTROZOLE 1 MG TABLET PO SCH (11:16)
[2017-07-12] MEDS: CLOTRIMAZOLE 1%TOPICAL SOLUTION 30 ML BOTTLE TP SCH ×2 (11:19→22:31)
[2017-07-12] MEDS: BACITRACIN 15 GM TUBE TOPICAL OINTMENT TP SCH (11:19)
--- NOTE | 2017-07-12 11:59 | CONSULT ---
Admitting History and Physical - Primary Care Physician PCP: Sasha Paniagua - Admission History of Present Illness: Selected Entries 07/09/17 07/09/17 07/10/17 11:01 14:33 02:59 Breakfast Supper Temperature 102.2 F H 101.7 F H 98.2 F 07/10/17 07/10/17 07/10/17 06:00 18:00 19:21 Breakfast Supper 50% Temperature 98.2 F 101.7 F H 07/10/17 07/11/17 07/11/17 21:41 01:41 05:39 Breakfast Supper Temperature 99.4 F 99.0 F 99.1 F 07/11/17 07/11/17 07/11/17 07:53 10:00 12:04 Breakfast 50% 50% Supper 50% Temperature 100.0 F H 07/11/17 07/11/17 07/11/17 14:23 17:00 18:57 Breakfast Supper 25% Temperature 98.5 F 99.3 F 07/11/17 07/11/17 07/12/17 20:44 22:00 02:12 Breakfast Supper Temperature 101.2 F H 100 F H 98.8 F 07/12/17 07/12/17 06:00 08:43 Breakfast Supper Temperature 99 F 98.3 F Laboratory Tests 07/09/17 07/10/17 07/11/17 11:32 06:36 06:20 WBC 19.1 H D 10.7 H D 10.9 H 07/12/17 06:17 WBC 8.6 Reported to be coughing, with and without PO intake, but noted with "cold water. " Acute Hypoxic Respiratory Failure improving Pneumonia clinically improving Sepsis Lactic Acidosis resolved Hemoptysis CAD Atrial Fibrillation with RVR CHF Dementia Febrile now. Resistant to po trials or medication from nursing. On regular diet/ thin liquids. She does not have her dentures. History Source: Medical Record Limitations to Obtaining History: Clinical Condition, Dementia - Past Medical History [employer]: Yes: Dementia Cardiovascular: Yes: AFIB, CHF Gastrointestinal: Yes: Other (Appendectomy at age 4 and, reexploration, laparotomy 5 years ago) Hepatobiliary: Yes: Cholecystitis (son gives h/o cholecystitits in past) - Past Surgical History Past Surgical History: Yes: Mastectomy (left sided) - Advance Directives Advance Directives: Yes: Health Care Proxy, DNR - Smoking History Smoking history: Never smoked Have you smoked in the past 12 months: No - Alcohol/Substance Use Hx Alcohol Use: No - Social History ADL: Support Services History - Admission Reason For Visit: SEPSIS - Diagnostics X-ray: Report Reviewed - General Mental Status: Awake and Alert, Confused Attention: Distractible Head/Neck Control: Needs Assist - Hearing Hearing: Normal Speech Evaluation - Communication Primary Language: MALTESE Communication: Yes: Simple Responses Oral Expression Ability: Yes: No Impairment - Speech Production Able to Make Needs Known: Yes: WNL Intelligibility: Yes: WNL - Speech Characteristics Voice Loudness: Normal Voice Pitch: Yes: Normal Voice Phonatory-based Quality: Yes: Normal Speech Pattern: Normal Speech Clarity: < 100% Nasal Resonance: Normal Articulation: Yes: Precise - Swallow Evaluation/Bedside Assessment Current Nutritional Intake: Regular, Thin Liquids Oral Secretions: Yes: WFL Dentition: Yes: Missing Teeth (no dentures) Facial Symmetry at Rest: Symmetrical Lingual Movement: Symmetric Lingual Speed of Movement: Normal Lingual Movement Strgth Against Opposition: Normal Lingual Movement Characteristics: Normal Laryngeal Movement: Unable to Palpate (poor cooperation) Recommendations - Speech Evaluation, Impression/Plan Impression: Febrile. Poor cooperation. Congested per nursing with cough. Poor dentition - Disposition Discharge to: Care Home Facility - Dysphagia Impressions/Plan Dysphagia Impressions: Ongoing Evaluation, Refused PO Trials *Silent aspiration: cannot be R/O at bedside - Recommendations Diet Consistency: Dysphagia Minced Medication Administration: Crushed with applesauce Liquids: Dasher Thick Supplement: Magic Cup, Ensure Pudding, Other (Ensure compact)
[2017-07-12] MEDS: ACETAMINOPHEN 325 MG TABLET (FP) PO PRN ×2 (12:01→17:54)
--- NOTE | 2017-07-12 15:43 | PN ---
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, Physician History of Present Illness: patient clinically continues to do well still spiking low grade fever one high spike soon in room - Current Medication List Current Medications: Active Medications Acetaminophen (Tylenol -) 650 mg PO Q6H PRN PRN Reason: PAIN LEVEL 1-5 Last Admin: 07/12/17 12:01 Dose: 650 mg Anastrozole (Arimidex -) 1 mg PO DAILY [facility] Last Admin: 07/12/17 11:16 Dose: 1 mg Atorvastatin Calcium (Lipitor -) 10 mg PO HS [facility] Last Admin: 07/11/17 21:49 Dose: 10 mg Bacitracin (Bacitracin -) 1 applic TP DAILY [facility] Last Admin: 07/12/17 11:19 Dose: 1 applic Clonazepam (Klonopin -) 0.5 mg PO TID [facility] Last Admin: 07/12/17 13:31 Dose: 0.5 mg Clotrimazole (Lotrimin 1% Solution -) 1 applic TP BID [facility] Last Admin: 07/12/17 11:19 Dose: 1 applic Digoxin (Lanoxin -) 0.125 mg PO DAILY [facility] Last Admin: 07/12/17 10:29 Dose: 0.125 mg Divalproex Sodium (Depakote -) 250 mg PO BID [facility] Last Admin: 07/12/17 11:16 Dose: 250 mg Donepezil HCl (Aricept -) 10 mg PO HS [facility] Last Admin: 07/11/17 21:49 Dose: 10 mg Escitalopram Oxalate (Lexapro -) 15 mg PO DAILY [facility] Last Admin: 07/12/17 10:31 Dose: 15 mg Piperacillin Sod/Tazobactam (Sod 3.375 gm/ Dextrose) 100 mls @ 200 mls/hr IVPB Q8H-IV [facility] Last Admin: 07/12/17 10:27 Dose: 200 mls/hr Vancomycin HCl 1,250 mg/ (Dextrose) 250 mls @ 166.667 mls/hr IVPB DAILY [facility] PRN Reason: Protocol Last Admin: 07/12/17 10:28 Dose: 166.667 mls/hr Isosorbide Mononitrate (Imdur -) 30 mg PO DAILY [facility] Last Admin: 07/12/17 10:29 Dose: 30 mg Lisinopril (Prinivil) 5 mg PO DAILY [facility] Last Admin: 07/12/17 10:31 Dose: 5 mg Melatonin (Melatonin) 2 mg PO HS [facility] Last Admin: 07/11/17 22:28 Dose: 2 mg Metoprolol Tartrate (Lopressor -) 25 mg PO BID [facility] Last Admin: 07/12/17 10:31 Dose: 25 mg Pantoprazole Sodium (Protonix Iv) 40 mg IVPUSH DAILY [facility] Last Admin: 07/12/17 10:29 Dose: 40 mg Rivaroxaban (Xarelto -) 20 mg PO DAILY@1800 [facility] Last Admin: 07/11/17 17:15 Dose: 20 mg - Objective Vital Signs: Vital Signs Temperature 100.2 F H 07/12/17 13:53 Pulse Rate 86 07/12/17 13:53 Respiratory Rate 20 07/12/17 13:53 Blood Pressure 118/53 07/12/17 13:53 O2 Sat by Pulse Oximetry (%) 94 L 07/11/17 21:00 Constitutional: Yes: No Distress, Calm Cardiovascular: Yes: Regular Rate and Rhythm Respiratory: Yes: Regular, Poor Air Entry, Rhonchi Gastrointestinal: Yes: Normal Bowel Sounds, Soft Musculoskeletal: Yes: Other (contracted) Extremities: Yes: WNL Neurological: Yes: Alert, Other Psychiatric: Yes: Alert Labs: CBC, BMP 07/12/17 06:17 07/12/17 06:17 INR, PTT INR 1.42 (0.82-1.09) H 07/09/17 11:32 Assessment/Plan after looking at the history i strongly suspect patient has aspiration pna which probably led to the symptoms Problem List - Problems (1) Sepsis Code(s): A41.9 - SEPSIS, UNSPECIFIED ORGANISM Qualifiers: Sepsis type: sepsis due to unspecified organism Qualified Code(s): A41.9 - Sepsis, unspecified organism (2) Atrial fibrillation Code(s): I48.91 - UNSPECIFIED ATRIAL FIBRILLATION Qualifiers: Atrial fibrillation type: persistent Qualified Code(s): I48.1 - Persistent atrial fibrillation (3) Dementia Code(s): F03.90 - UNSPECIFIED DEMENTIA WITHOUT BEHAVIORAL DISTURBANCE Qualifiers: Dementia type: unspecified type Dementia behavioral disturbance: without behavioral disturbance Qualified Code(s): F03.90 - Unspecified dementia without behavioral disturbance 4) asp pna 5 lactic acidosis 6 leukocytosis 7 dehydration plan continue abx continue rest of the mgmt swallow study continue to monitor fever
[2017-07-12] MEDS: ALBUTEROL SO4 2.5/IPRATROPIUM 0.5 INH SOL 3 ML VIAL.NEB. NEB PRN (17:16)
[2017-07-12] MEDS ORDERED: PT OWN MED DRAWER 7, Y5N ONE ×2 (17:49→22:17)
[2017-07-12] MEDS: RIVAROXABAN 20 MG TABLET PO SCH (17:54)
[2017-07-12] MEDS: DONEPEZIL HCL 10 MG TABLET (FP) PO SCH (22:19)
[2017-07-12] MEDS: ATORVASTATIN CA 10 MG TABLET (FP) PO SCH (22:19)
[2017-07-12] MEDS: MELATONIN 1 MG TABLET PO SCH (22:19)
[2017-07-13] MEDS: PIPERACILLIN/TAZOB 3.375 GM 3.375 GM in DEXTROSE 5%-WATER - 100 ML IVPB SCH ×3 (01:20→17:47)
[2017-07-13] MEDS: ACETAMINOPHEN 325 MG TABLET (FP) PO PRN ×2 (01:21→21:21)
[2017-07-13] MEDS: clonazePAM 0.5 MG TABLET PO SCH ×3 (05:39→21:22)
[2017-07-13] MEDS: ALBUTEROL SO4 2.5/IPRATROPIUM 0.5 INH SOL 3 ML VIAL.NEB. NEB PRN (08:33)
[2017-07-13] MEDS ORDERED: PT OWN MED DRAWER 7, Y5N ONE ×2 (09:47→21:17)
[2017-07-13] MEDS: VANCOMYCIN 1,250 MG in DEXTROSE 5%-WATER - 250 ML IVPB SCH (09:54)
[2017-07-13] MEDS: DIGOXIN 0.125 MG TABLET (FP) PO SCH (09:55)
[2017-07-13] MEDS: PANTOPRAZOLE SODIUM 40 MG VIAL IVPUSH SCH (09:55)
[2017-07-13] MEDS: METOPROLOL TARTRATE 25 MG TABLET (FP) PO SCH ×2 (09:55→21:22)
[2017-07-13] MEDS: ESCITALOPRAM OXALATE 10 MG TABLET (FP) PO SCH (09:56)
[2017-07-13] MEDS: LISINOPRIL 5 MG TABLET (FP) PO SCH (09:56)
[2017-07-13] MEDS: ISOSORBIDE MONONITRATE 30 MG TAB.SR.24H (FP) PO SCH (09:56)
[2017-07-13] MEDS: BACITRACIN 15 GM TUBE TOPICAL OINTMENT TP SCH (09:57)
[2017-07-13] MEDS: DIVALPROEX SODIUM 250 MG TABLET E.C. (FP) PO SCH (09:57)
[2017-07-13] MEDS: ANASTROZOLE 1 MG TABLET PO SCH (09:58)
[2017-07-13] MEDS: CLOTRIMAZOLE 1%TOPICAL SOLUTION 30 ML BOTTLE TP SCH (09:58)
--- NOTE | 2017-07-13 10:20 | PN ---
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, Physician History of Present Illness: Non-productive cough, low grade fevers. Remains in rate-controlled afib. - Current Medication List Current Medications: Active Medications Acetaminophen (Tylenol -) 650 mg PO Q6H PRN PRN Reason: PAIN LEVEL 1-5 Last Admin: 07/13/17 01:21 Dose: 650 mg Albuterol/Ipratropium (Duoneb -) 1 amp NEB Q4H PRN Last Admin: 07/13/17 08:33 Dose: 1 amp Anastrozole (Arimidex -) 1 mg PO DAILY [facility] Last Admin: 07/13/17 09:58 Dose: 1 mg Atorvastatin Calcium (Lipitor -) 10 mg PO HS [facility] Last Admin: 07/12/17 22:19 Dose: 10 mg Bacitracin (Bacitracin -) 1 applic TP DAILY [facility] Last Admin: 07/13/17 09:57 Dose: 1 applic Clonazepam (Klonopin -) 0.5 mg PO TID [facility] Last Admin: 07/13/17 05:39 Dose: 0.5 mg Clotrimazole (Lotrimin 1% Solution -) 1 applic TP BID [facility] Last Admin: 07/13/17 09:58 Dose: 1 applic Digoxin (Lanoxin -) 0.125 mg PO DAILY [facility] Last Admin: 07/13/17 09:55 Dose: 0.125 mg Divalproex Sodium (Depakote -) 250 mg PO BID [facility] Last Admin: 07/13/17 09:57 Dose: 250 mg Donepezil HCl (Aricept -) 10 mg PO HS [facility] Last Admin: 07/12/17 22:19 Dose: 10 mg Escitalopram Oxalate (Lexapro -) 15 mg PO DAILY [facility] Last Admin: 07/13/17 09:56 Dose: 15 mg Piperacillin Sod/Tazobactam (Sod 3.375 gm/ Dextrose) 100 mls @ 200 mls/hr IVPB Q8H-IV [facility] Last Admin: 07/13/17 09:55 Dose: 200 mls/hr Vancomycin HCl 1,250 mg/ (Dextrose) 250 mls @ 166.667 mls/hr IVPB DAILY [facility] PRN Reason: Protocol Last Admin: 07/13/17 09:54 Dose: 166.667 mls/hr Isosorbide Mononitrate (Imdur -) 30 mg PO DAILY [facility] Last Admin: 07/13/17 09:56 Dose: 30 mg Lisinopril (Prinivil) 5 mg PO DAILY [facility] Last Admin: 07/13/17 09:56 Dose: 5 mg Melatonin (Melatonin) 2 mg PO HS [facility] Last Admin: 07/12/17 22:19 Dose: 2 mg Metoprolol Tartrate (Lopressor -) 25 mg PO BID [facility] Last Admin: 07/13/17 09:55 Dose: 25 mg Pantoprazole Sodium (Protonix Iv) 40 mg IVPUSH DAILY [facility] Last Admin: 07/13/17 09:55 Dose: 40 mg Rivaroxaban (Xarelto -) 20 mg PO DAILY@1800 [facility] Last Admin: 07/12/17 17:54 Dose: 20 mg - Objective Vital Signs: Vital Signs Temperature 98.6 F 07/13/17 06:00 Pulse Rate 78 07/13/17 09:55 Respiratory Rate 16 07/13/17 06:00 Blood Pressure 140/67 07/13/17 06:00 O2 Sat by Pulse Oximetry (%) 95 07/12/17 09:00 Constitutional: Yes: No Distress, Calm Neck: Yes: Supple Cardiovascular: Yes: Pulse Irregular Respiratory: Yes: Regular, Diminished Gastrointestinal: Yes: Normal Bowel Sounds, Soft Edema: No Labs: CBC, BMP 07/12/17 06:17 07/12/17 06:17 INR, PTT INR 1.42 (0.82-1.09) H 07/09/17 11:32 - ....Imaging EKG: Report Reviewed (Tele: Rate-controlled afib) Problem List - Problems (1) Acute respiratory failure with hypoxia Code(s): J96.01 - ACUTE RESPIRATORY FAILURE WITH HYPOXIA (2) Pneumonia Code(s): J18.9 - PNEUMONIA, UNSPECIFIED ORGANISM Qualifiers: Pneumonia type: aspiration pneumonia (3) Sepsis Code(s): A41.9 - SEPSIS, UNSPECIFIED ORGANISM Qualifiers: Sepsis type: sepsis due to unspecified organism Qualified Code(s): A41.9 - Sepsis, unspecified organism (4) Anticoagulation adequate with anticoagulant therapy Code(s): Z79.01 - [facility] (CURRENT) USE OF ANTICOAGULANTS (5) Atrial fibrillation Code(s): I48.91 - UNSPECIFIED ATRIAL FIBRILLATION Qualifiers: Atrial fibrillation type: persistent Qualified Code(s): I48.1 - Persistent atrial fibrillation (6) Coronary artery disease Code(s): I25.10 - ATHSCL HEART DISEASE OF [place] CORONARY ARTERY W/O ANG PCTRS Qualifiers: Coronary Disease-Associated Artery/Lesion type: [place] artery [place] vs. transplanted heart: [place] heart Associated angina: without angina Qualified Code(s): I25.10 - Atherosclerotic heart disease of [place] coronary artery without angina pectoris (7) Dementia Code(s): F03.90 - UNSPECIFIED DEMENTIA WITHOUT BEHAVIORAL DISTURBANCE Qualifiers: Dementia type: unspecified type Dementia behavioral disturbance: without behavioral disturbance Qualified Code(s): F03.90 - Unspecified dementia without behavioral disturbance (8) Diastolic dysfunction Code(s): I51.9 - HEART DISEASE, UNSPECIFIED (9) Hyperlipidemia Code(s): E78.5 - HYPERLIPIDEMIA, UNSPECIFIED Qualifiers: Hyperlipidemia type: pure hypercholesterolemia Qualified Code(s): E78.00 - Pure hypercholesterolemia, unspecified; E78.0 - Pure hypercholesterolemia Assessment/Plan 07/12/2017 TDS, Normal biventricular size and fxn, mild MR 1. Clinical presentation is consistent with aspiration pneumonia, hemoptysis ( resolved), complicated by sepsis syndrome and lactic acidosis, resolving 2. CAD angina pectoris history of demand ischemic injury 3. Diastolic LV dysfunction with chronic class 0-I NYHA classification LV failure, compensated/euvolemic 4. Persistent atrial fibrillation rate controlled on NOAC's/Xarelto, therapy resumed post resolution of hemoptysis 5. HTN 6. Hyperlipidemia 7. Organic brain syndrome/dementia 8. Anemia 9. History of breast carcinoma PLAN: 1. Continue Xarelto 20 qd with close monitoring of CBC 2. Continue Lopressor 25 bid 3. Continue Lisinopril 5 qd 4. Continue Imdur 30 qd 5. Continue Lipitor 10 qhs 6. Continue Digoxin 0.125 qd with close monitoring of level 7. Complete antibiotic course as per the primary team 8. BD and O2 as needed, GI prophylaxis, d/c telemetry monitoring
--- NOTE | 2017-07-13 10:43 | PN ---
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 (short form) - Note 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: pt seen/ examined overall condition same no distress low grade temp. Vital Signs Temp 98.6 F 07/13/17 06:00 Pulse 78 07/13/17 09:55 Resp 16 07/13/17 06:00 BP 140/67 07/13/17 06:00 Pulse Ox 95 07/12/17 09:00 Intake & Output 07/12/17 07/12/17 07/13/17 11:59 23:59 11:59 Intake Total 120 480 50 Output Total 150 Balance 120 330 50 Intake: IV 30 Left AC 07/09/17 30 IVPB 350 50 Oral 120 100 Output: Urine 150 Hicks 150 Other: Voiding Method Diaper Incontinent Incontinent Bowel Movement No Active Medications Acetaminophen (Tylenol -) 650 mg PO Q6H PRN PRN Reason: PAIN LEVEL 1-5 Last Admin: 07/13/17 01:21 Dose: 650 mg Albuterol/Ipratropium (Duoneb -) 1 amp NEB Q4H PRN Last Admin: 07/13/17 08:33 Dose: 1 amp Anastrozole (Arimidex -) 1 mg PO DAILY [facility] Last Admin: 07/13/17 09:58 Dose: 1 mg Atorvastatin Calcium (Lipitor -) 10 mg PO HS [facility] Last Admin: 07/12/17 22:19 Dose: 10 mg Bacitracin (Bacitracin -) 1 applic TP DAILY [facility] Last Admin: 07/13/17 09:57 Dose: 1 applic Clonazepam (Klonopin -) 0.5 mg PO TID [facility] Last Admin: 07/13/17 05:39 Dose: 0.5 mg Clotrimazole (Lotrimin 1% Solution -) 1 applic TP BID [facility] Last Admin: 07/13/17 09:58 Dose: 1 applic Digoxin (Lanoxin -) 0.125 mg PO DAILY [facility] Last Admin: 07/13/17 09:55 Dose: 0.125 mg Divalproex Sodium (Depakote -) 250 mg PO BID [facility] Last Admin: 07/13/17 09:57 Dose: 250 mg Donepezil HCl (Aricept -) 10 mg PO HS [facility] Last Admin: 07/12/17 22:19 Dose: 10 mg Escitalopram Oxalate (Lexapro -) 15 mg PO DAILY [facility] Last Admin: 07/13/17 09:56 Dose: 15 mg Piperacillin Sod/Tazobactam (Sod 3.375 gm/ Dextrose) 100 mls @ 200 mls/hr IVPB Q8H-IV [facility] Last Admin: 07/13/17 09:55 Dose: 200 mls/hr Vancomycin HCl 1,250 mg/ (Dextrose) 250 mls @ 166.667 mls/hr IVPB DAILY [facility] PRN Reason: Protocol Last Admin: 07/13/17 09:54 Dose: 166.667 mls/hr Isosorbide Mononitrate (Imdur -) 30 mg PO DAILY [facility] Last Admin: 07/13/17 09:56 Dose: 30 mg Lisinopril (Prinivil) 5 mg PO DAILY [facility] Last Admin: 07/13/17 09:56 Dose: 5 mg Melatonin (Melatonin) 2 mg PO HS [facility] Last Admin: 07/12/17 22:19 Dose: 2 mg Metoprolol Tartrate (Lopressor -) 25 mg PO BID [facility] Last Admin: 07/13/17 09:55 Dose: 25 mg Pantoprazole Sodium (Protonix Iv) 40 mg IVPUSH DAILY [facility] Last Admin: 07/13/17 09:55 Dose: 40 mg Rivaroxaban (Xarelto -) 20 mg PO DAILY@1800 [facility] Last Admin: 07/12/17 17:54 Dose: 20 mg CBC, BMP 07/12/17 06:17 07/12/17 06:17 Physical Examination Constitutional: Yes: awake/ no distress. . Eyes: Yes: Conjunctiva Clear Neck: Yes: Supple/ no jvd Cardiovascular: Yes: Pulse Irregular Respiratory: Yes: Diminished (at bases) Gastrointestinal: Yes: Soft/ non tender Edema: No Imaging - Results Chest X-ray: Report Reviewed EKG: Report Reviewed Assessment/Plan Clinically stable. continue abx-per i/d oxygen. daily oob - chair. mbs today overall condition gaurded pulmonary/ i/d/ cardiology on board. pt is dnr/di. will follow monitor labs/ cbc discussed with daughter. Problem List - Problems (1) Sepsis Code(s): A41.9 - SEPSIS, UNSPECIFIED ORGANISM Qualifiers: Sepsis type: sepsis due to unspecified organism Qualified Code(s): A41.9 - Sepsis, unspecified organism (2) Atrial fibrillation Code(s): I48.91 - UNSPECIFIED ATRIAL FIBRILLATION Qualifiers: Atrial fibrillation type: persistent Qualified Code(s): I48.1 - Persistent atrial fibrillation (3) Dementia Code(s): F03.90 - UNSPECIFIED DEMENTIA WITHOUT BEHAVIORAL DISTURBANCE Qualifiers: Dementia type: unspecified type Dementia behavioral disturbance: without behavioral disturbance Qualified Code(s): F03.90 - Unspecified dementia without behavioral disturbance (4) Pneumonia Code(s): J18.9 - PNEUMONIA, UNSPECIFIED ORGANISM Qualifiers: Pneumonia type: aspiration pneumonia
--- NOTE | 2017-07-13 11:16 | PN ---
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, Physician History of Present Illness: pulmonary alert,-sob,-+ occ cough - Current Medication List Current Medications: Active Medications Acetaminophen (Tylenol -) 650 mg PO Q6H PRN PRN Reason: PAIN LEVEL 1-5 Last Admin: 07/13/17 01:21 Dose: 650 mg Albuterol/Ipratropium (Duoneb -) 1 amp NEB Q4H PRN Last Admin: 07/13/17 08:33 Dose: 1 amp Anastrozole (Arimidex -) 1 mg PO DAILY [facility] Last Admin: 07/13/17 09:58 Dose: 1 mg Atorvastatin Calcium (Lipitor -) 10 mg PO HS [facility] Last Admin: 07/12/17 22:19 Dose: 10 mg Bacitracin (Bacitracin -) 1 applic TP DAILY [facility] Last Admin: 07/13/17 09:57 Dose: 1 applic Clonazepam (Klonopin -) 0.5 mg PO TID [facility] Last Admin: 07/13/17 05:39 Dose: 0.5 mg Clotrimazole (Lotrimin 1% Solution -) 1 applic TP BID [facility] Last Admin: 07/13/17 09:58 Dose: 1 applic Digoxin (Lanoxin -) 0.125 mg PO DAILY [facility] Last Admin: 07/13/17 09:55 Dose: 0.125 mg Divalproex Sodium (Depakote -) 250 mg PO BID [facility] Last Admin: 07/13/17 09:57 Dose: 250 mg Donepezil HCl (Aricept -) 10 mg PO HS [facility] Last Admin: 07/12/17 22:19 Dose: 10 mg Escitalopram Oxalate (Lexapro -) 15 mg PO DAILY [facility] Last Admin: 07/13/17 09:56 Dose: 15 mg Piperacillin Sod/Tazobactam (Sod 3.375 gm/ Dextrose) 100 mls @ 200 mls/hr IVPB Q8H-IV [facility] Last Admin: 07/13/17 09:55 Dose: 200 mls/hr Vancomycin HCl 1,250 mg/ (Dextrose) 250 mls @ 166.667 mls/hr IVPB DAILY [facility] PRN Reason: Protocol Last Admin: 07/13/17 09:54 Dose: 166.667 mls/hr Isosorbide Mononitrate (Imdur -) 30 mg PO DAILY [facility] Last Admin: 07/13/17 09:56 Dose: 30 mg Lisinopril (Prinivil) 5 mg PO DAILY [facility] Last Admin: 07/13/17 09:56 Dose: 5 mg Melatonin (Melatonin) 2 mg PO HS [facility] Last Admin: 07/12/17 22:19 Dose: 2 mg Metoprolol Tartrate (Lopressor -) 25 mg PO BID [facility] Last Admin: 07/13/17 09:55 Dose: 25 mg Pantoprazole Sodium (Protonix Iv) 40 mg IVPUSH DAILY [facility] Last Admin: 07/13/17 09:55 Dose: 40 mg Rivaroxaban (Xarelto -) 20 mg PO DAILY@1800 [facility] Last Admin: 07/12/17 17:54 Dose: 20 mg - Objective Vital Signs: Vital Signs Temperature 98.6 F 07/13/17 06:00 Pulse Rate 78 07/13/17 09:55 Respiratory Rate 16 07/13/17 06:00 Blood Pressure 140/67 07/13/17 06:00 O2 Sat by Pulse Oximetry (%) 95 07/12/17 09:00 Constitutional: Yes: Well Nourished, Calm Eyes: Yes: WNL HENT: Yes: WNL Neck: Yes: WNL Cardiovascular: Yes: Pulse Irregular, S1, S2 Respiratory: Yes: Rales (bibasilar rales) Gastrointestinal: Yes: Normal Bowel Sounds, Soft Extremities: Yes: WNL Edema: No Assessment/Plan Problem List - Problems (1) Acute respiratory failure with hypoxia Code(s): J96.01 - ACUTE RESPIRATORY FAILURE WITH HYPOXIA (2) Pneumonia Code(s): J18.9 - PNEUMONIA, UNSPECIFIED ORGANISM (3) Sepsis Code(s): A41.9 - SEPSIS, UNSPECIFIED ORGANISM Qualifiers: Sepsis type: sepsis due to unspecified organism Qualified Code(s): A41.9 - Sepsis, unspecified organism (4) Atrial fibrillation Code(s): I48.91 - UNSPECIFIED ATRIAL FIBRILLATION Qualifiers: Atrial fibrillation type: persistent Qualified Code(s): I48.1 - Persistent atrial fibrillation (5) Coronary artery disease Code(s): I25.10 - ATHSCL HEART DISEASE OF [place] CORONARY ARTERY W/O ANG PCTRS Qualifiers: Coronary Disease-Associated Artery/Lesion type: [place] artery [place] vs. transplanted heart: [place] heart Associated angina: without angina Qualified Code(s): I25.10 - Atherosclerotic heart disease of [place] coronary artery without angina pectoris (6) Dementia Code(s): F03.90 - UNSPECIFIED DEMENTIA WITHOUT BEHAVIORAL DISTURBANCE Qualifiers: Dementia type: unspecified type Dementia behavioral disturbance: without behavioral disturbance Qualified Code(s): F03.90 - Unspecified dementia without behavioral disturbance (7) Lactic acidosis Code(s): E87.2 - ACIDOSIS Assessment/Plan Acute Hypoxic Respiratory Failure improving Pneumonia clinically improving Sepsis Lactic Acidosis resolved Hemoptysis CAD Atrial Fibrillation with RVR CHF Dementia - continue IV antibiotics - O2 to keep Spo2 >90% - inhaled bronchodilators - aspiration precautions - IVF - PO as tolerated - DVT prophylaxis DR JASSO
--- NOTE | 2017-07-13 16:39 | PN ---
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, Physician History of Present Illness: stable still with low grade fever tongue slightly reddish daughter in room - Current Medication List Current Medications: Active Medications Acetaminophen (Tylenol -) 650 mg PO Q6H PRN PRN Reason: PAIN LEVEL 1-5 Last Admin: 07/13/17 01:21 Dose: 650 mg Albuterol/Ipratropium (Duoneb -) 1 amp NEB Q4H PRN Last Admin: 07/13/17 08:33 Dose: 1 amp Anastrozole (Arimidex -) 1 mg PO DAILY [facility] Last Admin: 07/13/17 09:58 Dose: 1 mg Atorvastatin Calcium (Lipitor -) 10 mg PO HS [facility] Last Admin: 07/12/17 22:19 Dose: 10 mg Bacitracin (Bacitracin -) 1 applic TP DAILY [facility] Last Admin: 07/13/17 09:57 Dose: 1 applic Clonazepam (Klonopin -) 0.5 mg PO TID [facility] Last Admin: 07/13/17 14:48 Dose: 0.5 mg Clotrimazole (Lotrimin 1% Solution -) 1 applic TP BID [facility] Last Admin: 07/13/17 09:58 Dose: 1 applic Digoxin (Lanoxin -) 0.125 mg PO DAILY [facility] Last Admin: 07/13/17 09:55 Dose: 0.125 mg Divalproex Sodium (Depakote -) 250 mg PO BID [facility] Last Admin: 07/13/17 09:57 Dose: 250 mg Donepezil HCl (Aricept -) 10 mg PO HS [facility] Last Admin: 07/12/17 22:19 Dose: 10 mg Escitalopram Oxalate (Lexapro -) 15 mg PO DAILY [facility] Last Admin: 07/13/17 09:56 Dose: 15 mg Piperacillin Sod/Tazobactam (Sod 3.375 gm/ Dextrose) 100 mls @ 200 mls/hr IVPB Q8H-IV [facility] Last Admin: 07/13/17 09:55 Dose: 200 mls/hr Vancomycin HCl 1,250 mg/ (Dextrose) 250 mls @ 166.667 mls/hr IVPB DAILY [facility] PRN Reason: Protocol Last Admin: 07/13/17 09:54 Dose: 166.667 mls/hr Isosorbide Mononitrate (Imdur -) 30 mg PO DAILY [facility] Last Admin: 07/13/17 09:56 Dose: 30 mg Lisinopril (Prinivil) 5 mg PO DAILY [facility] Last Admin: 07/13/17 09:56 Dose: 5 mg Melatonin (Melatonin) 2 mg PO HS [facility] Last Admin: 07/12/17 22:19 Dose: 2 mg Metoprolol Tartrate (Lopressor -) 25 mg PO BID [facility] Last Admin: 07/13/17 09:55 Dose: 25 mg Pantoprazole Sodium (Protonix Iv) 40 mg IVPUSH DAILY [facility] Last Admin: 07/13/17 09:55 Dose: 40 mg Rivaroxaban (Xarelto -) 20 mg PO DAILY@1800 [facility] Last Admin: 07/12/17 17:54 Dose: 20 mg - Objective Vital Signs: Vital Signs Temperature 98.5 F 07/13/17 14:25 Pulse Rate 80 07/13/17 14:25 Respiratory Rate 22 07/13/17 14:25 Blood Pressure 114/80 07/13/17 14:25 O2 Sat by Pulse Oximetry (%) 95 07/12/17 09:00 Constitutional: Yes: No Distress, Calm Cardiovascular: Yes: Regular Rate and Rhythm Respiratory: Yes: Regular, Poor Air Entry Gastrointestinal: Yes: Normal Bowel Sounds, Soft Musculoskeletal: Yes: Other (contracted) Extremities: Yes: WNL Neurological: Yes: Alert Psychiatric: Yes: Alert Labs: CBC, BMP 07/12/17 06:17 07/12/17 06:17 INR, PTT INR 1.42 (0.82-1.09) H 07/09/17 11:32 - ....Imaging X-ray: Report Reviewed, Image Reviewed Assessment/Plan after looking at the history i strongly suspect patient has aspiration pna which probably led to the symptoms Problem List - Problems (1) Sepsis Code(s): A41.9 - SEPSIS, UNSPECIFIED ORGANISM Qualifiers: Sepsis type: sepsis due to unspecified organism Qualified Code(s): A41.9 - Sepsis, unspecified organism (2) Atrial fibrillation Code(s): I48.91 - UNSPECIFIED ATRIAL FIBRILLATION Qualifiers: Atrial fibrillation type: persistent Qualified Code(s): I48.1 - Persistent atrial fibrillation (3) Dementia Code(s): F03.90 - UNSPECIFIED DEMENTIA WITHOUT BEHAVIORAL DISTURBANCE Qualifiers: Dementia type: unspecified type Dementia behavioral disturbance: without behavioral disturbance Qualified Code(s): F03.90 - Unspecified dementia without behavioral disturbance 4) asp pna 5 lactic acidosis 6 leukocytosis 7 dehydration 8 thrush plan continue abx continue rest of the mgmt continue to monitor fever will add nystatin swish and spit
[2017-07-13] MEDS: NYSTATIN 500,000 UNITS/5 ML SUSPENSION PO SCH (17:47)
[2017-07-13] MEDS: RIVAROXABAN 20 MG TABLET PO SCH (17:47)
[2017-07-13] MEDS: ATORVASTATIN CA 10 MG TABLET (FP) PO SCH (21:22)
[2017-07-13] MEDS: DONEPEZIL HCL 10 MG TABLET (FP) PO SCH (21:22)
[2017-07-14] MEDS ORDERED: PT OWN MED DRAWER 7, Y5N ONE ×4 (03:00→21:09)
[2017-07-14] MEDS: PIPERACILLIN/TAZOB 3.375 GM 3.375 GM in DEXTROSE 5%-WATER - 100 ML IVPB SCH ×3 (03:07→17:57)
[2017-07-14] MEDS: MELATONIN 1 MG TABLET PO SCH ×2 (05:31→21:14)
[2017-07-14] MEDS: DIVALPROEX SODIUM 250 MG TABLET E.C. (FP) PO SCH ×3 (05:31→21:13)
[2017-07-14] MEDS: CLOTRIMAZOLE 1%TOPICAL SOLUTION 30 ML BOTTLE TP SCH ×3 (05:31→21:14)
[2017-07-14] MEDS: NYSTATIN 500,000 UNITS/5 ML SUSPENSION PO SCH ×4 (05:32→17:57)
[2017-07-14 06:47] LABS: BASO % 0.5 % (0-2.0); EOS % 6.1 % (0-4.5); HEMATOCRIT 30.4 % (32.4-45.2); HEMOGLOBIN 10.3 GM/dL (10.7-15.3); LYMPH % 17.4 % (8-40); MCH 31.5 pg (25.7-33.7); MCHC 33.7 g/dl (32.0-36.0); MEAN CELL VOLUME 93.3 fl (80-96); MEAN PLT VOLUME 8.4 fl (7.5-11.1); MONO % 10.7 % (3.8-10.2); NEUT % 65.3 % (42.8-82.8); PLATELET COUNT 321 K/MM3 (134-434); RBC 3.26 M/mm3 (3.60-5.2); RDW 14.8 % (11.6-15.6); WHITE BLOOD COUNT 6.4 K/mm3 (4.0-10.0)
[2017-07-14] MEDS: clonazePAM 0.5 MG TABLET PO SCH ×3 (06:55→21:13)
[2017-07-14 07:12] LABS: ALBUMIN 2.1 g/dl (3.4-5.0); ANION GAP 8 (8-16); BLOOD UREA NITROGEN 21 mg/dL (7-18); CALCIUM 8.5 mg/dL (8.5-10.1); CHLORIDE 105 mmol/L (98-107); CO2 30 mmol/L (21-32); GLUCOSE,RANDOM 76 mg/dL (74-106); POTASSIUM 3.7 mmol/L (3.5-5.1); SODIUM 143 mmol/L (136-145)
[2017-07-14 07:16] LABS: ALK PHOS 117 U/L (45-117); BILIRUBIN,TOTAL 0.8 mg/dL (0.2-1.0); CREATININE 0.6 mg/dL (0.55-1.02); SGOT/AST 32 U/L (15-37); SGPT/ALT 26 U/L (12-78); TOT PROT 5.7 g/dl (6.4-8.2)
[2017-07-14] MEDS: DIGOXIN 0.125 MG TABLET (FP) PO SCH (09:47)
[2017-07-14] MEDS: LISINOPRIL 5 MG TABLET (FP) PO SCH (09:48)
[2017-07-14] MEDS: ISOSORBIDE MONONITRATE 30 MG TAB.SR.24H (FP) PO SCH (09:48)
[2017-07-14] MEDS: ESCITALOPRAM OXALATE 10 MG TABLET (FP) PO SCH (09:48)
[2017-07-14] MEDS: METOPROLOL TARTRATE 25 MG TABLET (FP) PO SCH ×2 (09:48→21:13)
[2017-07-14] MEDS: PANTOPRAZOLE SODIUM 40 MG VIAL IVPUSH SCH (09:49)
[2017-07-14] MEDS: BACITRACIN 15 GM TUBE TOPICAL OINTMENT TP SCH (09:49)
[2017-07-14] MEDS: ANASTROZOLE 1 MG TABLET PO SCH (09:49)
[2017-07-14] MEDS: VANCOMYCIN 1,250 MG in DEXTROSE 5%-WATER - 250 ML IVPB SCH (09:49)
--- NOTE | 2017-07-14 10:19 | PN ---
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 (short form) - Note 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: comfortable low grade temp looks ok daughter at bedside eating well mbs - noted Vital Signs Temp 100.2 F H 07/13/17 22:00 Pulse 82 07/14/17 09:47 Resp 22 07/14/17 06:53 BP 128/72 07/14/17 06:53 Pulse Ox 96 07/13/17 21:00 Intake & Output 07/13/17 07/13/17 07/14/17 11:59 23:59 11:59 Intake Total 50 100 100 Balance 50 100 100 Intake: IVPB 50 100 Oral 100 Other: Voiding Method Incontinent Incontinent # Unmeasured Voids Void 2 1 Bowel Movement Yes # Bowel Movements 1 Active Medications Acetaminophen (Tylenol -) 650 mg PO Q6H PRN PRN Reason: PAIN LEVEL 1-5 Last Admin: 07/13/17 21:21 Dose: 650 mg Albuterol/Ipratropium (Duoneb -) 1 amp NEB Q4H PRN Last Admin: 07/13/17 08:33 Dose: 1 amp Anastrozole (Arimidex -) 1 mg PO DAILY [facility] Last Admin: 07/14/17 09:49 Dose: 1 mg Atorvastatin Calcium (Lipitor -) 10 mg PO [facility] Last Admin: 07/13/17 21:22 Dose: 10 mg Bacitracin (Bacitracin -) 1 applic TP DAILY [facility] Last Admin: 07/14/17 09:49 Dose: 1 applic Clonazepam (Klonopin -) 0.5 mg PO TID [facility] Last Admin: 07/14/17 06:55 Dose: 0.5 mg Clotrimazole (Lotrimin 1% Solution -) 1 applic TP BID [facility] Last Admin: 07/14/17 09:48 Dose: 1 applic Digoxin (Lanoxin -) 0.125 mg PO DAILY [facility] Last Admin: 07/14/17 09:47 Dose: 0.125 mg Divalproex Sodium (Depakote -) 250 mg PO BID [facility] Last Admin: 07/14/17 09:49 Dose: 250 mg Donepezil HCl (Aricept -) 10 mg PO HS [facility] Last Admin: 07/13/17 21:22 Dose: 10 mg Escitalopram Oxalate (Lexapro -) 15 mg PO DAILY [facility] Last Admin: 07/14/17 09:48 Dose: 15 mg Piperacillin Sod/Tazobactam (Sod 3.375 gm/ Dextrose) 100 mls @ 200 mls/hr IVPB Q8H-IV [facility] Last Admin: 07/14/17 09:47 Dose: 200 mls/hr Vancomycin HCl 1,250 mg/ (Dextrose) 250 mls @ 166.667 mls/hr IVPB DAILY [facility] PRN Reason: Protocol Last Admin: 07/14/17 09:49 Dose: 166.667 mls/hr Isosorbide Mononitrate (Imdur -) 30 mg PO DAILY [facility] Last Admin: 07/14/17 09:48 Dose: 30 mg Lisinopril (Prinivil) 5 mg PO DAILY [facility] Last Admin: 07/14/17 09:48 Dose: 5 mg Melatonin (Melatonin) 2 mg PO HS [facility] Last Admin: 07/14/17 05:31 Dose: Not Given Metoprolol Tartrate (Lopressor -) 25 mg PO BID [facility] Last Admin: 07/14/17 09:48 Dose: 25 mg Nystatin (Nystatin Oral Suspension -) 500,000 units PO Q6HPO [facility] Last Admin: 07/14/17 06:55 Dose: 500,000 units Pantoprazole Sodium (Protonix Iv) 40 mg IVPUSH DAILY [facility] Last Admin: 07/14/17 09:49 Dose: 40 mg Rivaroxaban (Xarelto -) 20 mg PO DAILY@1800 [facility] Last Admin: 07/13/17 17:47 Dose: 20 mg CBC, BMP 07/14/17 06:10 07/14/17 06:10 [facility] diet/ thin liquids Physical Examination Constitutional: Yes: awake/ no distress. . Eyes: Yes: Conjunctiva Clear Neck: Yes: Supple/ no jvd Cardiovascular: Yes: Pulse Irregular Respiratory: Yes: Diminished (at bases) Gastrointestinal: Yes: Soft/ non tender Edema: No Imaging - Results Chest X-ray: Report Reviewed EKG: Report Reviewed Assessment/Plan Clinically stable. continue abx-per i/d discussed with Dr. Cohen- will follow oxygen. daily oob - chair. overall condition gaurded but stable pt is dnr/di. will follow discussed with daughter. if stable - afebrile= will consider d/c to group home in 1-2 days Problem List - Problems (1) Sepsis Code(s): A41.9 - SEPSIS, UNSPECIFIED ORGANISM Qualifiers: Sepsis type: sepsis due to unspecified organism Qualified Code(s): A41.9 - Sepsis, unspecified organism (2) Atrial fibrillation Code(s): I48.91 - UNSPECIFIED ATRIAL FIBRILLATION Qualifiers: Atrial fibrillation type: persistent Qualified Code(s): I48.1 - Persistent atrial fibrillation (3) Dementia Code(s): F03.90 - UNSPECIFIED DEMENTIA WITHOUT BEHAVIORAL DISTURBANCE Qualifiers: Dementia type: unspecified type Dementia behavioral disturbance: without behavioral disturbance Qualified Code(s): F03.90 - Unspecified dementia without behavioral disturbance (4) Pneumonia Code(s): J18.9 - PNEUMONIA, UNSPECIFIED ORGANISM Qualifiers: Pneumonia type: aspiration pneumonia
--- NOTE | 2017-07-14 10:30 | PN ---
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, Physician Chief Complaint: Event noted Not in distress History of Present Illness: Patient was seen and examined. Awake. Chart was reviewed Denies chest pain, SOB or palpitation - Current Medication List Current Medications: Active Medications Acetaminophen (Tylenol -) 650 mg PO Q6H PRN PRN Reason: PAIN LEVEL 1-5 Last Admin: 07/13/17 21:21 Dose: 650 mg Albuterol/Ipratropium (Duoneb -) 1 amp NEB Q4H PRN Last Admin: 07/13/17 08:33 Dose: 1 amp Anastrozole (Arimidex -) 1 mg PO DAILY [facility] Last Admin: 07/14/17 09:49 Dose: 1 mg Atorvastatin Calcium (Lipitor -) 10 mg PO HS [facility] Last Admin: 07/13/17 21:22 Dose: 10 mg Bacitracin (Bacitracin -) 1 applic TP DAILY [facility] Last Admin: 07/14/17 09:49 Dose: 1 applic Clonazepam (Klonopin -) 0.5 mg PO TID [facility] Last Admin: 07/14/17 06:55 Dose: 0.5 mg Clotrimazole (Lotrimin 1% Solution -) 1 applic TP BID [facility] Last Admin: 07/14/17 09:48 Dose: 1 applic Digoxin (Lanoxin -) 0.125 mg PO DAILY [facility] Last Admin: 07/14/17 09:47 Dose: 0.125 mg Divalproex Sodium (Depakote -) 250 mg PO BID [facility] Last Admin: 07/14/17 09:49 Dose: 250 mg Donepezil HCl (Aricept -) 10 mg PO HS [facility] Last Admin: 07/13/17 21:22 Dose: 10 mg Escitalopram Oxalate (Lexapro -) 15 mg PO DAILY [facility] Last Admin: 07/14/17 09:48 Dose: 15 mg Piperacillin Sod/Tazobactam (Sod 3.375 gm/ Dextrose) 100 mls @ 200 mls/hr IVPB Q8H-IV [facility] Last Admin: 07/14/17 09:47 Dose: 200 mls/hr Vancomycin HCl 1,250 mg/ (Dextrose) 250 mls @ 166.667 mls/hr IVPB DAILY [facility] PRN Reason: Protocol Last Admin: 07/14/17 09:49 Dose: 166.667 mls/hr Isosorbide Mononitrate (Imdur -) 30 mg PO DAILY [facility] Last Admin: 07/14/17 09:48 Dose: 30 mg Lisinopril (Prinivil) 5 mg PO DAILY [facility] Last Admin: 07/14/17 09:48 Dose: 5 mg Melatonin (Melatonin) 2 mg PO HS [facility] Last Admin: 07/14/17 05:31 Dose: Not Given Metoprolol Tartrate (Lopressor -) 25 mg PO BID [facility] Last Admin: 07/14/17 09:48 Dose: 25 mg Nystatin (Nystatin Oral Suspension -) 500,000 units PO Q6HPO [facility] Last Admin: 07/14/17 06:55 Dose: 500,000 units Pantoprazole Sodium (Protonix Iv) 40 mg IVPUSH DAILY [facility] Last Admin: 07/14/17 09:49 Dose: 40 mg Rivaroxaban (Xarelto -) 20 mg PO DAILY@1800 [facility] Last Admin: 07/13/17 17:47 Dose: 20 mg - Objective Vital Signs: Vital Signs Temperature 100.2 F H 07/13/17 22:00 Pulse Rate 82 07/14/17 09:47 Respiratory Rate 22 07/14/17 06:53 Blood Pressure 128/72 07/14/17 06:53 O2 Sat by Pulse Oximetry (%) 96 07/13/17 21:00 Eyes: Yes: PERRL Neck: Yes: Supple Cardiovascular: Yes: Pulse Irregular, S1, S2 Respiratory: Yes: Diminished Gastrointestinal: Yes: Normal Bowel Sounds, Soft. No: Tenderness Edema: No Additional Findings/Remarks: - Review of Systems Constitutional: denies: Chills, Fever Cardiovascular: denies: Shortness of Breath denies: Chest Pain, Palpitations Respiratory: denies: SOB. denies: Orthopnea, PND Gastrointestinal: denies: Abdominal Pain, Constipation, Diarrhea, Melena, Nausea , Rectal Bleeding, Vomiting Neurological: denies: Weakness. denies: Dizziness, Headache, Seizure, Syncope Labs: CBC, BMP 07/14/17 06:10 07/14/17 06:10 Problem List - Problems (1) Acute respiratory failure with hypoxia Code(s): J96.01 - ACUTE RESPIRATORY FAILURE WITH HYPOXIA (2) Lactic acidosis Code(s): E87.2 - ACIDOSIS (3) Pneumonia Code(s): J18.9 - PNEUMONIA, UNSPECIFIED ORGANISM Qualifiers: Pneumonia type: aspiration pneumonia (4) Sepsis Code(s): A41.9 - SEPSIS, UNSPECIFIED ORGANISM Qualifiers: Sepsis type: sepsis due to unspecified organism Qualified Code(s): A41.9 - Sepsis, unspecified organism (5) Atrial fibrillation Code(s): I48.91 - UNSPECIFIED ATRIAL FIBRILLATION Qualifiers: Atrial fibrillation type: persistent Qualified Code(s): I48.1 - Persistent atrial fibrillation (6) Coronary artery disease Code(s): I25.10 - ATHSCL HEART DISEASE OF [place] CORONARY ARTERY W/O ANG PCTRS Qualifiers: Coronary Disease-Associated Artery/Lesion type: [place] artery [place] vs. transplanted heart: [place] heart Associated angina: without angina Qualified Code(s): I25.10 - Atherosclerotic heart disease of [place] coronary artery without angina pectoris (7) Dementia Code(s): F03.90 - UNSPECIFIED DEMENTIA WITHOUT BEHAVIORAL DISTURBANCE Qualifiers: Dementia type: unspecified type Dementia behavioral disturbance: without behavioral disturbance Qualified Code(s): F03.90 - Unspecified dementia without behavioral disturbance (8) Diastolic dysfunction Code(s): I51.9 - HEART DISEASE, UNSPECIFIED (9) Hyperlipidemia Code(s): E78.5 - HYPERLIPIDEMIA, UNSPECIFIED Qualifiers: Hyperlipidemia type: pure hypercholesterolemia Qualified Code(s): E78.00 - Pure hypercholesterolemia, unspecified; E78.0 - Pure hypercholesterolemia Assessment/Plan 1. Clinical presentation is consistent with aspiration pneumonia, hemoptysis ( resolved), complicated by sepsis syndrome and lactic acidosis, resolving 2. CAD, angina pectoris 3. Diastolic LV dysfunction with chronic class 0-I NYHA classification LV failure, compensated/euvolemic 4. Persistent atrial fibrillation rate controlled on NOAC/Xarelto 5. HTN 6. Hyperlipidemia 7. Organic brain syndrome/dementia 8. Anemia 9. History of breast carcinoma PLAN: 1. Continue Xarelto 20 qd with close monitoring of CBC 2. Continue Lopressor, Lisinopril and Imdur 3. Continue Lipitor 4. Continue Digoxin with close monitoring of level 5. Complete antibiotic course as per the primary team 6. Bronchodilator and O2 as needed, GI prophylaxis 7. 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
--- NOTE | 2017-07-14 11:05 | PN ---
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 Encourage supplements.
--- NOTE | 2017-07-14 12:09 | PN ---
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, Physician History of Present Illness: patient doing well slight low grade family in room - Current Medication List Current Medications: Active Medications Acetaminophen (Tylenol -) 650 mg PO Q6H PRN PRN Reason: PAIN LEVEL 1-5 Last Admin: 07/13/17 21:21 Dose: 650 mg Albuterol/Ipratropium (Duoneb -) 1 amp NEB Q4H PRN Last Admin: 07/13/17 08:33 Dose: 1 amp Anastrozole (Arimidex -) 1 mg PO DAILY [facility] Last Admin: 07/14/17 09:49 Dose: 1 mg Atorvastatin Calcium (Lipitor -) 10 mg PO HS [facility] Last Admin: 07/13/17 21:22 Dose: 10 mg Bacitracin (Bacitracin -) 1 applic TP DAILY [facility] Last Admin: 07/14/17 09:49 Dose: 1 applic Clonazepam (Klonopin -) 0.5 mg PO TID [facility] Last Admin: 07/14/17 06:55 Dose: 0.5 mg Clotrimazole (Lotrimin 1% Solution -) 1 applic TP BID [facility] Last Admin: 07/14/17 09:48 Dose: 1 applic Digoxin (Lanoxin -) 0.125 mg PO DAILY [facility] Last Admin: 07/14/17 09:47 Dose: 0.125 mg Divalproex Sodium (Depakote -) 250 mg PO BID [facility] Last Admin: 07/14/17 09:49 Dose: 250 mg Donepezil HCl (Aricept -) 10 mg PO HS [facility] Last Admin: 07/13/17 21:22 Dose: 10 mg Escitalopram Oxalate (Lexapro -) 15 mg PO DAILY [facility] Last Admin: 07/14/17 09:48 Dose: 15 mg Piperacillin Sod/Tazobactam (Sod 3.375 gm/ Dextrose) 100 mls @ 200 mls/hr IVPB Q8H-IV [facility] Last Admin: 07/14/17 09:47 Dose: 200 mls/hr Vancomycin HCl 1,250 mg/ (Dextrose) 250 mls @ 166.667 mls/hr IVPB DAILY [facility] PRN Reason: Protocol Last Admin: 07/14/17 09:49 Dose: 166.667 mls/hr Isosorbide Mononitrate (Imdur -) 30 mg PO DAILY [facility] Last Admin: 07/14/17 09:48 Dose: 30 mg Lisinopril (Prinivil) 5 mg PO DAILY [facility] Last Admin: 07/14/17 09:48 Dose: 5 mg Melatonin (Melatonin) 2 mg PO HS [facility] Last Admin: 07/14/17 05:31 Dose: Not Given Metoprolol Tartrate (Lopressor -) 25 mg PO BID [facility] Last Admin: 07/14/17 09:48 Dose: 25 mg Nystatin (Nystatin Oral Suspension -) 500,000 units PO Q6HPO [facility] Last Admin: 07/14/17 06:55 Dose: 500,000 units Pantoprazole Sodium (Protonix Iv) 40 mg IVPUSH DAILY [facility] Last Admin: 07/14/17 09:49 Dose: 40 mg Rivaroxaban (Xarelto -) 20 mg PO DAILY@1800 [facility] Last Admin: 07/13/17 17:47 Dose: 20 mg - Objective Vital Signs: Vital Signs Temperature 100.2 F H 07/13/17 22:00 Pulse Rate 82 07/14/17 09:47 Respiratory Rate 22 07/14/17 06:53 Blood Pressure 128/72 07/14/17 06:53 O2 Sat by Pulse Oximetry (%) 96 07/13/17 21:00 Constitutional: Yes: No Distress, Calm Cardiovascular: Yes: Regular Rate and Rhythm Respiratory: Yes: Regular, CTA Bilaterally Gastrointestinal: Yes: Normal Bowel Sounds, Soft Musculoskeletal: Yes: WNL Extremities: Yes: WNL Neurological: Yes: Alert, Oriented Psychiatric: Yes: Alert, Oriented Labs: CBC, BMP 07/14/17 06:10 07/14/17 06:10 INR, PTT INR 1.42 (0.82-1.09) H 07/09/17 11:32 Assessment/Plan after looking at the history i strongly suspect patient has aspiration pna which probably led to the symptoms Problem List - Problems (1) Sepsis Code(s): A41.9 - SEPSIS, UNSPECIFIED ORGANISM Qualifiers: Sepsis type: sepsis due to unspecified organism Qualified Code(s): A41.9 - Sepsis, unspecified organism (2) Atrial fibrillation Code(s): I48.91 - UNSPECIFIED ATRIAL FIBRILLATION Qualifiers: Atrial fibrillation type: persistent Qualified Code(s): I48.1 - Persistent atrial fibrillation (3) Dementia Code(s): F03.90 - UNSPECIFIED DEMENTIA WITHOUT BEHAVIORAL DISTURBANCE Qualifiers: Dementia type: unspecified type Dementia behavioral disturbance: without behavioral disturbance Qualified Code(s): F03.90 - Unspecified dementia without behavioral disturbance 4) asp pna 5 lactic acidosis 6 leukocytosis 7 dehydration 8 thrush plan will change abx to oral tomorrow continue aspiration precaution
--- NOTE | 2017-07-14 14:08 | PN ---
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 (short form) - Note 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: Breathing slowly improving. Some residual cough. Intake & Output 07/11/17 07/12/17 07/13/17 07/14/17 23:59 23:59 23:59 23:59 Intake Total 510 600 150 100 Output Total 500 150 Balance 10 450 150 100 Last Vital Signs Temp Pulse Resp BP Pulse Ox 100.2 F H 82 22 128/72 96 07/13/17 22:00 07/14/17 09:47 07/14/17 06:53 07/14/17 06:53 07/13/17 21:00 Active Medications Acetaminophen (Tylenol -) 650 mg PO Q6H PRN PRN Reason: PAIN LEVEL 1-5 Last Admin: 07/13/17 21:21 Dose: 650 mg Albuterol/Ipratropium (Duoneb -) 1 amp NEB Q4H PRN Last Admin: 07/13/17 08:33 Dose: 1 amp Anastrozole (Arimidex -) 1 mg PO DAILY [facility] Last Admin: 07/14/17 09:49 Dose: 1 mg Atorvastatin Calcium (Lipitor -) 10 mg PO HS [facility] Last Admin: 07/13/17 21:22 Dose: 10 mg Bacitracin (Bacitracin -) 1 applic TP DAILY [facility] Last Admin: 07/14/17 09:49 Dose: 1 applic Clonazepam (Klonopin -) 0.5 mg PO TID [facility] Last Admin: 07/14/17 14:11 Dose: 0.5 mg Clotrimazole (Lotrimin 1% Solution -) 1 applic TP BID [facility] Last Admin: 07/14/17 09:48 Dose: 1 applic Digoxin (Lanoxin -) 0.125 mg PO DAILY [facility] Last Admin: 07/14/17 09:47 Dose: 0.125 mg Divalproex Sodium (Depakote -) 250 mg PO BID [facility] Last Admin: 07/14/17 09:49 Dose: 250 mg Donepezil HCl (Aricept -) 10 mg PO HS [facility] Last Admin: 07/13/17 21:22 Dose: 10 mg Escitalopram Oxalate (Lexapro -) 15 mg PO DAILY [facility] Last Admin: 07/14/17 09:48 Dose: 15 mg Piperacillin Sod/Tazobactam (Sod 3.375 gm/ Dextrose) 100 mls @ 200 mls/hr IVPB Q8H-IV [facility] Last Admin: 07/14/17 09:47 Dose: 200 mls/hr Vancomycin HCl 1,250 mg/ (Dextrose) 250 mls @ 166.667 mls/hr IVPB DAILY [facility] PRN Reason: Protocol Last Admin: 07/14/17 09:49 Dose: 166.667 mls/hr Isosorbide Mononitrate (Imdur -) 30 mg PO DAILY [facility] Last Admin: 07/14/17 09:48 Dose: 30 mg Lisinopril (Prinivil) 5 mg PO DAILY [facility] Last Admin: 07/14/17 09:48 Dose: 5 mg Melatonin (Melatonin) 2 mg PO HS [facility] Last Admin: 07/14/17 05:31 Dose: Not Given Metoprolol Tartrate (Lopressor -) 25 mg PO BID [facility] Last Admin: 07/14/17 09:48 Dose: 25 mg Nystatin (Nystatin Oral Suspension -) 500,000 units PO Q6HPO [facility] Last Admin: 07/14/17 12:00 Dose: 500,000 units Pantoprazole Sodium (Protonix Iv) 40 mg IVPUSH DAILY [facility] Last Admin: 07/14/17 09:49 Dose: 40 mg Rivaroxaban (Xarelto -) 20 mg PO DAILY@1800 [facility] Last Admin: 07/13/17 17:47 Dose: 20 mg Constitutional: Yes: NAD Eyes: Yes: WNL HENT: Yes: WNL Neck: Yes: WNL Cardiovascular: Yes: Pulse Irregular, S1, S2 Respiratory: Yes: Bibasilar rales/rhonchi Gastrointestinal: Yes: Normal Bowel Sounds, Soft Extremities: Yes: WNL Edema: No Laboratory Results - last 24 hr 07/14/17 07/14/17 06:10 06:10 WBC 6.4 RBC 3.26 L Hgb 10.3 L D Hct 30.4 L MCV 93.3 MCH 31.5 MCHC 33.7 RDW 14.8 Plt Count 321 D MPV 8.4 Neutrophils % 65.3 Lymphocytes % 17.4 D Monocytes % 10.7 H D Eosinophils % 6.1 H Basophils % 0.5 Sodium 143 Potassium 3.7 Chloride 105 Carbon Dioxide 30 Anion Gap 8 BUN 21 H Creatinine 0.6 Creat Clearance w eGFR > 60 Random Glucose 76 Calcium 8.5 Total Bilirubin 0.8 D AST 32 ALT 26 Alkaline Phosphatase 117 Total Protein 5.7 L Albumin 2.1 L Assessment/Plan Problem List - Problems (1) Acute respiratory failure with hypoxia Code(s): J96.01 - ACUTE RESPIRATORY FAILURE WITH HYPOXIA (2) Pneumonia Code(s): J18.9 - PNEUMONIA, UNSPECIFIED ORGANISM (3) Sepsis Code(s): A41.9 - SEPSIS, UNSPECIFIED ORGANISM Qualifiers: Sepsis type: sepsis due to unspecified organism Qualified Code(s): A41.9 - Sepsis, unspecified organism (4) Atrial fibrillation Code(s): I48.91 - UNSPECIFIED ATRIAL FIBRILLATION Qualifiers: Atrial fibrillation type: persistent Qualified Code(s): I48.1 - Persistent atrial fibrillation (5) Coronary artery disease Code(s): I25.10 - ATHSCL HEART DISEASE OF [place] CORONARY ARTERY W/O ANG PCTRS Qualifiers: Coronary Disease-Associated Artery/Lesion type: [place] artery [place] vs. transplanted heart: [place] heart Associated angina: without angina Qualified Code(s): I25.10 - Atherosclerotic heart disease of [place] coronary artery without angina pectoris (6) Dementia Code(s): F03.90 - UNSPECIFIED DEMENTIA WITHOUT BEHAVIORAL DISTURBANCE Qualifiers: Dementia type: unspecified type Dementia behavioral disturbance: without behavioral disturbance Qualified Code(s): F03.90 - Unspecified dementia without behavioral disturbance (7) Lactic acidosis Code(s): E87.2 - ACIDOSIS Assessment/Plan Acute Hypoxic Respiratory Failure improving Pneumonia clinically improving Sepsis Lactic Acidosis resolved Hemoptysis CAD Atrial Fibrillation with RVR CHF Dementia - ABX per ID - O2 to keep Spo2 >90% - inhaled bronchodilators - aspiration precautions - PO as tolerated - DVT prophylaxis Dr Lindquist
[2017-07-14] MEDS: RIVAROXABAN 20 MG TABLET PO SCH (17:57)
[2017-07-14] MEDS: ATORVASTATIN CA 10 MG TABLET (FP) PO SCH (21:13)
[2017-07-14] MEDS: DONEPEZIL HCL 10 MG TABLET (FP) PO SCH (21:13)
[2017-07-14] MEDS: ALBUTEROL SO4 2.5/IPRATROPIUM 0.5 INH SOL 3 ML VIAL.NEB. NEB PRN (21:40)
[2017-07-15] MEDS: NYSTATIN 500,000 UNITS/5 ML SUSPENSION PO SCH ×3 (02:23→13:58)
[2017-07-15] MEDS ORDERED: PT OWN MED DRAWER 7, Y5N ONE (02:29)
[2017-07-15] MEDS: PIPERACILLIN/TAZOB 3.375 GM 3.375 GM in DEXTROSE 5%-WATER - 100 ML IVPB SCH ×2 (03:00→09:47)
[2017-07-15] MEDS: clonazePAM 0.5 MG TABLET PO SCH ×2 (06:57→14:08)
[2017-07-15] MEDS: PANTOPRAZOLE SODIUM 40 MG VIAL IVPUSH SCH (09:47)
[2017-07-15] MEDS: DIGOXIN 0.125 MG TABLET (FP) PO SCH (09:48)
[2017-07-15] MEDS: LISINOPRIL 5 MG TABLET (FP) PO SCH (09:48)
[2017-07-15] MEDS: ESCITALOPRAM OXALATE 10 MG TABLET (FP) PO SCH (09:48)
[2017-07-15] MEDS: ISOSORBIDE MONONITRATE 30 MG TAB.SR.24H (FP) PO SCH (09:49)
[2017-07-15] MEDS: DIVALPROEX SODIUM 250 MG TABLET E.C. (FP) PO SCH (09:49)
[2017-07-15] MEDS: ANASTROZOLE 1 MG TABLET PO SCH (09:49)
[2017-07-15] MEDS: METOPROLOL TARTRATE 25 MG TABLET (FP) PO SCH (09:49)
[2017-07-15] MEDS: ACETAMINOPHEN 325 MG TABLET (FP) PO PRN (09:50)
[2017-07-15] MEDS: BACITRACIN 15 GM TUBE TOPICAL OINTMENT TP SCH (09:51)
[2017-07-15] MEDS: CLOTRIMAZOLE 1%TOPICAL SOLUTION 30 ML BOTTLE TP SCH (09:51)
--- NOTE | 2017-07-15 10:00 | PN ---
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, Physician History of Present Illness: Non-productive cough, low grade fevers, dyspnea, leukocytosis resolving. Remains in rate-controlled afib. - Current Medication List Current Medications: Active Medications Acetaminophen (Tylenol -) 650 mg PO Q6H PRN PRN Reason: PAIN LEVEL 1-5 Last Admin: 07/13/17 21:21 Dose: 650 mg Albuterol/Ipratropium (Duoneb -) 1 amp NEB Q4H PRN Last Admin: 07/14/17 21:40 Dose: 1 amp Anastrozole (Arimidex -) 1 mg PO DAILY [facility] Last Admin: 07/14/17 09:49 Dose: 1 mg Atorvastatin Calcium (Lipitor -) 10 mg PO HS [facility] Last Admin: 07/14/17 21:13 Dose: 10 mg Bacitracin (Bacitracin -) 1 applic TP DAILY [facility] Last Admin: 07/14/17 09:49 Dose: 1 applic Clonazepam (Klonopin -) 0.5 mg PO TID [facility] Last Admin: 07/15/17 06:57 Dose: 0.5 mg Clotrimazole (Lotrimin 1% Solution -) 1 applic TP BID [facility] Last Admin: 07/14/17 21:14 Dose: 1 applic Digoxin (Lanoxin -) 0.125 mg PO DAILY [facility] Last Admin: 07/14/17 09:47 Dose: 0.125 mg Divalproex Sodium (Depakote -) 250 mg PO BID [facility] Last Admin: 07/14/17 21:13 Dose: 250 mg Donepezil HCl (Aricept -) 10 mg PO HS [facility] Last Admin: 07/14/17 21:13 Dose: 10 mg Escitalopram Oxalate (Lexapro -) 15 mg PO DAILY [facility] Last Admin: 07/14/17 09:48 Dose: 15 mg Piperacillin Sod/Tazobactam (Sod 3.375 gm/ Dextrose) 100 mls @ 200 mls/hr IVPB Q8H-IV [facility] Last Admin: 07/15/17 03:00 Dose: 200 mls/hr Vancomycin HCl 1,250 mg/ (Dextrose) 250 mls @ 166.667 mls/hr IVPB DAILY [facility] PRN Reason: Protocol Last Admin: 07/14/17 09:49 Dose: 166.667 mls/hr Isosorbide Mononitrate (Imdur -) 30 mg PO DAILY [facility] Last Admin: 07/14/17 09:48 Dose: 30 mg Lisinopril (Prinivil) 5 mg PO DAILY [facility] Last Admin: 07/14/17 09:48 Dose: 5 mg Melatonin (Melatonin) 2 mg PO HS [facility] Last Admin: 07/14/17 21:14 Dose: 2 mg Metoprolol Tartrate (Lopressor -) 25 mg PO BID [facility] Last Admin: 07/14/17 21:13 Dose: 25 mg Nystatin (Nystatin Oral Suspension -) 500,000 units PO Q6HPO [facility] Last Admin: 07/15/17 06:57 Dose: 500,000 units Pantoprazole Sodium (Protonix Iv) 40 mg IVPUSH DAILY [facility] Last Admin: 07/14/17 09:49 Dose: 40 mg Rivaroxaban (Xarelto -) 20 mg PO DAILY@1800 [facility] Last Admin: 07/14/17 17:57 Dose: 20 mg - Objective Vital Signs: Vital Signs Temperature 97.4 F L 07/15/17 08:04 Pulse Rate 74 07/15/17 08:04 Respiratory Rate 20 07/15/17 08:04 Blood Pressure 130/70 07/15/17 08:04 O2 Sat by Pulse Oximetry (%) 94 L 07/14/17 21:00 Constitutional: Yes: No Distress, Calm Neck: Yes: Supple Cardiovascular: Yes: Pulse Irregular Respiratory: Yes: Regular, Diminished Gastrointestinal: Yes: Normal Bowel Sounds, Soft Edema: No Labs: CBC, BMP 07/14/17 06:10 07/14/17 06:10 INR, PTT INR 1.42 (0.82-1.09) H 07/09/17 11:32 Problem List - Problems (1) Acute respiratory failure with hypoxia Code(s): J96.01 - ACUTE RESPIRATORY FAILURE WITH HYPOXIA (2) Pneumonia Code(s): J18.9 - PNEUMONIA, UNSPECIFIED ORGANISM Qualifiers: Pneumonia type: aspiration pneumonia (3) Sepsis Code(s): A41.9 - SEPSIS, UNSPECIFIED ORGANISM Qualifiers: Sepsis type: sepsis due to unspecified organism Qualified Code(s): A41.9 - Sepsis, unspecified organism (4) Anticoagulation adequate with anticoagulant therapy Code(s): Z79.01 - LANDSCAPE DESIGNER (CURRENT) USE OF ANTICOAGULANTS (5) Atrial fibrillation Code(s): I48.91 - UNSPECIFIED ATRIAL FIBRILLATION Qualifiers: Atrial fibrillation type: persistent Qualified Code(s): I48.1 - Persistent atrial fibrillation (6) Coronary artery disease Code(s): I25.10 - ATHSCL HEART DISEASE OF [place] CORONARY ARTERY W/O ANG PCTRS Qualifiers: Coronary Disease-Associated Artery/Lesion type: [place] artery [place] vs. transplanted heart: [place] heart Associated angina: without angina Qualified Code(s): I25.10 - Atherosclerotic heart disease of [place] coronary artery without angina pectoris (7) Dementia Code(s): F03.90 - UNSPECIFIED DEMENTIA WITHOUT BEHAVIORAL DISTURBANCE Qualifiers: Dementia type: unspecified type Dementia behavioral disturbance: without behavioral disturbance Qualified Code(s): F03.90 - Unspecified dementia without behavioral disturbance (8) Diastolic dysfunction Code(s): I51.9 - HEART DISEASE, UNSPECIFIED (9) Hyperlipidemia Code(s): E78.5 - HYPERLIPIDEMIA, UNSPECIFIED Qualifiers: Hyperlipidemia type: pure hypercholesterolemia Qualified Code(s): E78.00 - Pure hypercholesterolemia, unspecified; E78.0 - Pure hypercholesterolemia Assessment/Plan 1. Aspiration pneumonia, hemoptysis (resolved), complicated by sepsis syndrome and lactic acidosis, resolving 2. CAD, angina pectoris 3. Diastolic LV dysfunction with chronic class 0-I NYHA classification LV failure, compensated/euvolemic 4. Persistent atrial fibrillation rate controlled on NOAC/Xarelto 5. HTN 6. Hyperlipidemia 7. Organic brain syndrome/dementia 8. Anemia 9. History of breast carcinoma PLAN: 1. Continue Xarelto 20 qd with close monitoring of CBC 2. Continue Lopressor 25 bid, Lisinopril 5 qd and Imdur 30 qd 3. Continue Lipitor 10 qhs 4. Continue Digoxin 0.125 qd with close monitoring of level 5. Complete antibiotic course as per ID 6. Bronchodilator and O2 to keep Spo2 >90% as needed, GI prophylaxis 7. OOB to chair if feasible and off quality assurance monitor
--- NOTE | 2017-07-15 10:35 | PN ---
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 (short form) - Note 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: Vital Signs Temp 97.4 F L 07/15/17 08:04 Pulse 78 07/15/17 09:48 Resp 20 07/15/17 08:04 BP 130/70 07/15/17 08:04 Pulse Ox 94 L 07/14/17 21:00 Intake & Output 07/14/17 07/14/17 07/15/17 11:59 23:59 11:59 Intake Total 100 100 100 Balance 100 100 100 Intake: IVPB 100 100 Oral 100 Other: Voiding Method Incontinent Incontinent Incontinent # Unmeasured Voids Void 1 Bowel Movement Yes # Bowel Movements 1 Active Medications Acetaminophen (Tylenol -) 650 mg PO Q6H PRN PRN Reason: PAIN LEVEL 1-5 Last Admin: 07/15/17 09:50 Dose: 650 mg Albuterol/Ipratropium (Duoneb -) 1 amp NEB Q4H PRN Last Admin: 07/14/17 21:40 Dose: 1 amp Anastrozole (Arimidex -) 1 mg PO DAILY [facility] Last Admin: 07/15/17 09:49 Dose: 1 mg Atorvastatin Calcium (Lipitor -) 10 mg PO [facility] Last Admin: 07/14/17 21:13 Dose: 10 mg Bacitracin (Bacitracin -) 1 applic TP DAILY [facility] Last Admin: 07/15/17 09:51 Dose: 1 applic Clonazepam (Klonopin -) 0.5 mg PO TID [facility] Last Admin: 07/15/17 06:57 Dose: 0.5 mg Clotrimazole (Lotrimin 1% Solution -) 1 applic TP BID [facility] Last Admin: 07/15/17 09:51 Dose: 1 applic Digoxin (Lanoxin -) 0.125 mg PO DAILY [facility] Last Admin: 07/15/17 09:48 Dose: 0.125 mg Divalproex Sodium (Depakote -) 250 mg PO BID [facility] Last Admin: 07/15/17 09:49 Dose: 250 mg Donepezil HCl (Aricept -) 10 mg PO HS [facility] Last Admin: 07/14/17 21:13 Dose: 10 mg Escitalopram Oxalate (Lexapro -) 15 mg PO DAILY [facility] Last Admin: 07/15/17 09:48 Dose: 15 mg Piperacillin Sod/Tazobactam (Sod 3.375 gm/ Dextrose) 100 mls @ 200 mls/hr IVPB Q8H-IV [facility] Last Admin: 07/15/17 09:47 Dose: 200 mls/hr Vancomycin HCl 1,250 mg/ (Dextrose) 250 mls @ 166.667 mls/hr IVPB DAILY [facility] PRN Reason: Protocol Last Admin: 07/14/17 09:49 Dose: 166.667 mls/hr Isosorbide Mononitrate (Imdur -) 30 mg PO DAILY [facility] Last Admin: 07/15/17 09:49 Dose: 30 mg Lisinopril (Prinivil) 5 mg PO DAILY [facility] Last Admin: 07/15/17 09:48 Dose: 5 mg Melatonin (Melatonin) 2 mg PO HS [facility] Last Admin: 07/14/17 21:14 Dose: 2 mg Metoprolol Tartrate (Lopressor -) 25 mg PO BID [facility] Last Admin: 07/15/17 09:49 Dose: 25 mg Nystatin (Nystatin Oral Suspension -) 500,000 units PO Q6HPO [facility] Last Admin: 07/15/17 06:57 Dose: 500,000 units Pantoprazole Sodium (Protonix Iv) 40 mg IVPUSH DAILY [facility] Last Admin: 07/15/17 09:47 Dose: 40 mg Rivaroxaban (Xarelto -) 20 mg PO DAILY@1800 [facility] Last Admin: 07/14/17 17:57 Dose: 20 mg CBC, BMP 07/14/17 06:10 07/14/17 06:10 Problem List - Problems (1) Sepsis Code(s): A41.9 - SEPSIS, UNSPECIFIED ORGANISM Qualifiers: Sepsis type: sepsis due to unspecified organism Qualified Code(s): A41.9 - Sepsis, unspecified organism (2) Atrial fibrillation Code(s): I48.91 - UNSPECIFIED ATRIAL FIBRILLATION Qualifiers: Atrial fibrillation type: persistent Qualified Code(s): I48.1 - Persistent atrial fibrillation (3) Dementia Code(s): F03.90 - UNSPECIFIED DEMENTIA WITHOUT BEHAVIORAL DISTURBANCE Qualifiers: Dementia type: unspecified type Dementia behavioral disturbance: without behavioral disturbance Qualified Code(s): F03.90 - Unspecified dementia without behavioral disturbance (4) Pneumonia Code(s): J18.9 - PNEUMONIA, UNSPECIFIED ORGANISM Qualifiers: Pneumonia type: aspiration pneumonia
--- NOTE | 2017-07-15 10:59 | DS ---
Physical Examination Vital Signs: Vital Signs Temperature 97.4 F L 07/15/17 08:04 Pulse Rate 78 07/15/17 09:48 Respiratory Rate 20 07/15/17 08:04 Blood Pressure 130/70 07/15/17 08:04 O2 Sat by Pulse Oximetry (%) 94 L 07/14/17 21:00 Findings/Remarks: looks good No complaints Son at bedside Afebrile Tolerating diet very well Constitutional: Yes: No Distress, Calm Neck: Yes: Supple Cardiovascular: Yes: Regular Rate and Rhythm Respiratory: Yes: CTA Bilaterally Gastrointestinal: Yes: Normal Bowel Sounds, Soft Edema: No Neurological: Yes: Other (awake/ poor historian) Labs: CBC, BMP 07/14/17 06:10 07/14/17 06:10 Discharge Summary Reason For Visit: SEPSIS Current Active Problems Acute respiratory failure with hypoxia (Acute) Lactic acidosis (Acute) Pneumonia (Acute) Sepsis (Acute) Hospital Course: 76 year old female with past medical history of hypertension, hyperlipidemia, atrial fibrillation, coronary disease, congestive heart failure, left breast cancer status post left sided mastectomy, dementia, also cholecystectomy sent from [facility] for shortness of breath, vomiting. Patient has dementia so patient history obtained daughter. According to the daughter, the patient was otherwise in her usual state of health. Today, the patient had noted that she has had vomiting twice does greenish and yellowish and subsequent shortness of breath. Patient has been rhonchorous and she has been complaining about feeling short of breath but denies any pain. Otherwise, patient unable to clarify what exactly is bothering her. The patient was noted to be tachycardic in atrial fibrillation with rapid ventricular response. Also noted to be hypertensive and febrile concerning for sepsis. Patient's O2 saturation had been around 70% on room air and the patient' s been placed on nonrebreather. Pt given broad spectrum abx in er patient admitted for pneumonia/Rapid A. fib Treated with antibiotics started on anticoagulation Cardiology as well as ID followed Swallowing evaluation also done Stabilized Now stable for discharge on oral antibiotics Discussed in detail with patient's son today Medications reconciled. Discussed with nursing staff also Patient to be monitored closely in the retirement Discharge time--35 minutes-in documenting examining as well as coordinating care Condition: Improved - Instructions Diet, Activity, Other Instructions: chopped diet/ thin liquids should have speech/ swallow eval at retirement== f/u -family requests Disposition: [facility] - Home Medications Comprehensive Discharge Medication List: Ambulatory Orders Anastrozole [Arimidex -] 1 mg PO DAILY 07/09/17 Atorvastatin Ca [Lipitor] 10 mg PO HS 07/09/17 Bacitracin Zinc 1 each TP DAILY 07/09/17 Clonazepam 0.5 mg PO TID 07/09/17 Digoxin [Lanoxin -] 0.125 mg PO Q48H 07/09/17 Divalproex [Depakote -] 250 mg PO BID 07/09/17 Donepezil HCl 10 mg PO HS 07/09/17 Escitalopram Oxalate [Lexapro -] 15 mg PO DAILY 07/09/17 Folic Acid 1 mg PO DAILY 07/09/17 Furosemide 20 mg PO DAILY 07/09/17 Isosorbide Mononitrate [Isosorbide Mononitrate ER] 30 mg PO DAILY 07/09/17 Loratadine 10 mg PO DAILY 07/09/17 Melatonin 2 mg PO HS 07/09/17 Metoprolol Tartrate 25 mg PO BID 07/09/17 Multivitamin [Poly-Vitamin] 1 each PO DAILY 07/09/17 Omeprazole 20 mg PO DAILY 07/09/17 Polyethylene Glycol 3350 [Clearlax] 17 gm PO DAILY 07/09/17 Rivaroxaban [Xarelto -] 20 mg PO 1800 07/09/17 Zinc Sulfate 220 mg PO DAILY 07/09/17 Acetaminophen 650 mg PO Q8H PRN 07/10/17 Albuterol 2.5/Ipratropium 0.5 [Duoneb -] 1 amp NEB Q4H PRN #1 amp 07/15/17 Amoxicillin/Potassium Clav [Augmentin 875-125 Tablet] 1 each PO BID #6 tablet Lisinopril [Prinivil] 5 mg PO DAILY #30 tablet 07/15/17 Nystatin Oral Suspension - [Nystatin Oral Susp 940781 Units/5 ML -] 500,000 units PO Q6HPO #1 cup 07/15/17
[2017-07-15] MEDS: VANCOMYCIN 1,250 MG in DEXTROSE 5%-WATER - 250 ML IVPB SCH (11:00)
--- NOTE | 2017-07-15 12:45 | PN ---
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, Physician History of Present Illness: stable no new issues son in the room patient doing much better - Current Medication List Current Medications: Active Medications Acetaminophen (Tylenol -) 650 mg PO Q6H PRN PRN Reason: PAIN LEVEL 1-5 Last Admin: 07/15/17 09:50 Dose: 650 mg Albuterol/Ipratropium (Duoneb -) 1 amp NEB Q4H PRN Last Admin: 07/14/17 21:40 Dose: 1 amp Anastrozole (Arimidex -) 1 mg PO DAILY [facility] Last Admin: 07/15/17 09:49 Dose: 1 mg Atorvastatin Calcium (Lipitor -) 10 mg PO HS [facility] Last Admin: 07/14/17 21:13 Dose: 10 mg Bacitracin (Bacitracin -) 1 applic TP DAILY [facility] Last Admin: 07/15/17 09:51 Dose: 1 applic Clonazepam (Klonopin -) 0.5 mg PO TID [facility] Last Admin: 07/15/17 06:57 Dose: 0.5 mg Clotrimazole (Lotrimin 1% Solution -) 1 applic TP BID [facility] Last Admin: 07/15/17 09:51 Dose: 1 applic Digoxin (Lanoxin -) 0.125 mg PO DAILY [facility] Last Admin: 07/15/17 09:48 Dose: 0.125 mg Divalproex Sodium (Depakote -) 250 mg PO BID [facility] Last Admin: 07/15/17 09:49 Dose: 250 mg Donepezil HCl (Aricept -) 10 mg PO HS [facility] Last Admin: 07/14/17 21:13 Dose: 10 mg Escitalopram Oxalate (Lexapro -) 15 mg PO DAILY [facility] Last Admin: 07/15/17 09:48 Dose: 15 mg Piperacillin Sod/Tazobactam (Sod 3.375 gm/ Dextrose) 100 mls @ 200 mls/hr IVPB Q8H-IV [facility] Last Admin: 07/15/17 09:47 Dose: 200 mls/hr Vancomycin HCl 1,250 mg/ (Dextrose) 250 mls @ 166.667 mls/hr IVPB DAILY [facility] PRN Reason: Protocol Last Admin: 07/14/17 09:49 Dose: 166.667 mls/hr Isosorbide Mononitrate (Imdur -) 30 mg PO DAILY [facility] Last Admin: 07/15/17 09:49 Dose: 30 mg Lisinopril (Prinivil) 5 mg PO DAILY [facility] Last Admin: 07/15/17 09:48 Dose: 5 mg Melatonin (Melatonin) 2 mg PO HS [facility] Last Admin: 07/14/17 21:14 Dose: 2 mg Metoprolol Tartrate (Lopressor -) 25 mg PO BID [facility] Last Admin: 07/15/17 09:49 Dose: 25 mg Nystatin (Nystatin Oral Suspension -) 500,000 units PO Q6HPO [facility] Last Admin: 07/15/17 06:57 Dose: 500,000 units Pantoprazole Sodium (Protonix Iv) 40 mg IVPUSH DAILY [facility] Last Admin: 07/15/17 09:47 Dose: 40 mg Rivaroxaban (Xarelto -) 20 mg PO DAILY@1800 [facility] Last Admin: 07/14/17 17:57 Dose: 20 mg - Objective Vital Signs: Vital Signs Temperature 97.4 F L 07/15/17 08:04 Pulse Rate 78 07/15/17 09:48 Respiratory Rate 20 07/15/17 08:04 Blood Pressure 130/70 07/15/17 08:04 O2 Sat by Pulse Oximetry (%) 94 L 07/14/17 21:00 Constitutional: Yes: No Distress, Calm Neck: Yes: Supple Cardiovascular: Yes: S1, S2 Respiratory: Yes: Regular, CTA Bilaterally Gastrointestinal: Yes: Normal Bowel Sounds, Soft Musculoskeletal: Yes: WNL Extremities: Yes: WNL Neurological: Yes: Alert, Other Psychiatric: Yes: Alert, Other Labs: CBC, BMP 07/14/17 06:10 07/14/17 06:10 INR, PTT INR 1.42 (0.82-1.09) H 07/09/17 11:32 Assessment/Plan after looking at the history i strongly suspect patient has aspiration pna which probably led to the symptoms Problem List - Problems (1) Sepsis Code(s): A41.9 - SEPSIS, UNSPECIFIED ORGANISM Qualifiers: Sepsis type: sepsis due to unspecified organism Qualified Code(s): A41.9 - Sepsis, unspecified organism (2) Atrial fibrillation Code(s): I48.91 - UNSPECIFIED ATRIAL FIBRILLATION Qualifiers: Atrial fibrillation type: persistent Qualified Code(s): I48.1 - Persistent atrial fibrillation (3) Dementia Code(s): F03.90 - UNSPECIFIED DEMENTIA WITHOUT BEHAVIORAL DISTURBANCE Qualifiers: Dementia type: unspecified type Dementia behavioral disturbance: without behavioral disturbance Qualified Code(s): F03.90 - Unspecified dementia without behavioral disturbance 4) asp pna 5 lactic acidosis 6 leukocytosis 7 dehydration 8 thrush plan augmentin for 3 more days aspiration precautions rest continue current mgmt d/w the son
--- NOTE | 2017-07-15 14:19 | PN ---
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, PROGRAM SUPPORT SPECIALIST - Note 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: Pt noted to cough on OJ from a straw, given by a family member. P was not seated fully upright. Educated Andriy on positioning while feeding Ms. Reza and f/u by phyllis singer at [facility] for possible f/u. Overall, pt is doing much better. Pending d/c.
[2017-07-15 15:16] VITALS: BP 95/46; TEMP 98.5
[2017-07-15 19:45] VITALS: PULSE 75
== END 2017-07-15 19:11 | DRG 871 ==
LOC: JER 10:55 → JERBED 13:17 → J4W 07-10 12:48
PROVIDERS: ADMIT Internal Medicine; ATTEND Internal Medicine
DX: A41.9 Sepsis, unspecified organism (principal); J69.0 Pneumonitis due to inhalation of food and vomit; J96.01 Acute respiratory failure with hypoxia; I48.1 Persistent atrial fibrillation; E87.2 Acidosis; I24.8 Other forms of acute ischemic heart disease; B37.89 Other sites of candidiasis; E78.5 Hyperlipidemia, unspecified; G30.8 Other Alzheimer's disease; F02.80 Dementia in other diseases classified elsewhere, unspecified severity, without behavioral disturbance, psychotic disturbance, mood disturbance, and anxiety; I25.10 Atherosclerotic heart disease of native coronary artery without angina pectoris; F32.89 Other specified depressive episodes; E86.0 Dehydration; D72.828 Other elevated white blood cell count; R00.0 Tachycardia, unspecified; R50.9 Fever, unspecified; D64.9 Anemia, unspecified; I11.0 Hypertensive heart disease with heart failure; Z85.3 Personal history of malignant neoplasm of breast
CPT/HCPCS: 36415; 71045-TC; 74230-TC; 80048; 80053; 80162; 80164; 81003; 81015; 82272; 82550; 82803; 83605; 83690; 83735; 83880; 84100; 84484; 85025; 85610; 85730; 86850; 86900; 86901; 87040; 87086; 87324; 87449; 87804; 92611-GN; 93005; 93010; 93306-TC; 94640; 99285-25

== ENCOUNTER 2018-11-06 09:02 | Inpatient (IN) | payer OTHER ==
[2018-11-06] MEDS ORDERED: PIPERACILLIN/TAZOB 3.375 GM 3.375 GM in DEXTROSE 5%-WATER - 50 ML IVPB ONE (10:01)
[2018-11-06] MEDS ORDERED: VANCOMYCIN 1 GM in D5W (PRE-DOCKED) 1,000 MG/250 ML IVPB ONE (10:01)
[2018-11-06 10:12] LABS: BASO % 0.3 % (0-2.0); EOS % 0.3 % (0-4.5); HEMATOCRIT 36.5 % (32.4-45.2); HEMOGLOBIN 11.8 GM/dL (10.7-15.3); LYMPH % 3.5 % (8-40); MCH 31.3 pg (25.7-33.7); MCHC 32.4 g/dl (32.0-36.0); MEAN CELL VOLUME 96.5 fl (80-96); MEAN PLT VOLUME 8.7 fl (7.5-11.1); MONO % 4.4 % (3.8-10.2); NEUT % 91.5 % (42.8-82.8); PLATELET COUNT 268 K/MM3 (134-434); RBC 3.78 M/mm3 (3.60-5.2); RDW 14.9 % (11.6-15.6); WHITE BLOOD COUNT 11.6 K/mm3 (4.0-10.0)
[2018-11-06] MEDS ORDERED: VANCOMYCIN 1 GRAM (PRE-DOCKED) 1,000 MG/250 ML BAG IVPB ONE (10:15)
[2018-11-06] MEDS ORDERED: PIPERACILLIN/TAZOB 3.375 GM 3.375 GM/50 ML BAG IVPB ONE (10:16)
[2018-11-06 10:24] LABS: VENOUS PC02 59.3 mmHg (41-51); VENOUS PH 7.3 (7.31-7.41)
[2018-11-06 10:25] LABS: VENOUS PO2 24.1 mmHg (30-40)
[2018-11-06 10:29] LABS: EPI CELLS 0.4 /HPF (0-5/HPF); HYALINE CASTS 53 /lpf (0-8); URINE APPEARANCE CLOUDY; URINE BILIRUBIN NEGATIVE (NEGATIVE); URINE COLOR YELLOW; URINE GLUCOSE (UA) NEGATIVE (NEGATIVE); URINE KETONE NEGATIVE (NEGATIVE); URINE LEUK ESTERASE TRACE (NEGATIVE); URINE NITRITE POSITIVE (NEGATIVE); URINE PROTEIN 2+ (NEGATIVE); URINE RBC 2 /hpf (0-4); URINE WBC 63 /hpf (0-5)
[2018-11-06 10:31] LABS: INR 1.26 (0.83-1.09); PROTHROMBIN TIME (PATIENT) 14.9 SEC (9.7-13.0)
[2018-11-06 10:34] LABS: ACTIVATED PTT 32.5 SECONDS (25.2-36.5)
[2018-11-06 10:44] LABS: ALBUMIN 3.2 g/dl (3.4-5.0); BILIRUBIN,TOTAL 0.7 mg/dL (0.2-1); CREATININE 0.9 mg/dL (0.55-1.3); POTASSIUM 4.1 mmol/L (3.5-5.1); TOT PROT 6.9 g/dl (6.4-8.2)
[2018-11-06 10:49] LABS: URINE BACTERIA 743.9 /hpf (NEGATIVE)
--- NOTE | 2018-11-06 10:56 | PDOC ---
Documentation entered by Isadora Rocha SCRIBE, acting as scribe for Armani Garcia MD. Armani Garcia MD: This documentation has been prepared by the airamibeJosefina Victoria, SCRIBE, under my direction and personally reviewed by me in its entirety. I confirm that the documentation accurately reflects all work, treatment, procedures, and medical decision making performed by me. History of Present Illness - General Chief Complaint: SIRS, Suspected/Possible Stated Complaint: VOMITING Time Seen by Provider: 11/06/18 09:16 History Source: Patient, Family, Old Records Exam Limitations: Dementia - History of Present Illness Initial Comments: 11/06/18 10:25 The patient is a 71 year old female with past medical history of hypertension, hyperlipidemia, atrial fibrillation (on Xarelto), CAD, CHF (on Digoxin), breast CA (s/p L mastectomy), and Alzheimers, brought in by EMS from [facility] for fever and vomiting today. In the ED, she was found to be febrile to 101.6. Patient is alert to verbal commands and stimuli, but is only oriented to person. She does not provide much history, but denies any complaints. According to son, the patient had been coughing yesterday, and was told by the long-term staff the patients cough persisted this morning and she had vomited. PCP: Dr. Alexander Urban Past History - Past Medical History Allergies/Adverse Reactions: Allergies Allergy/AdvReac Type Severity Reaction Status Date / Time No Known Allergies Allergy Verified 11/06/18 09:23 Home Medications: Ambulatory Orders Anastrozole [Arimidex -] 1 mg PO DAILY 07/09/17 Atorvastatin Ca [Lipitor] 10 mg PO HS 07/09/17 Clonazepam 0.5 mg PO TID 07/09/17 Digoxin [Lanoxin -] 0.125 mg PO Q48H 07/09/17 Divalproex [Depakote -] 250 mg PO BID 07/09/17 Donepezil HCl 10 mg PO HS 07/09/17 Escitalopram Oxalate [Lexapro -] 20 mg PO DAILY 07/09/17 Folic Acid 1 mg PO DAILY 07/09/17 Furosemide 20 mg PO DAILY 07/09/17 Isosorbide Mononitrate [Isosorbide Mononitrate ER] 30 mg PO DAILY 07/09/17 Loratadine 10 mg PO DAILY 07/09/17 Melatonin 2 mg PO HS 07/09/17 Metoprolol Tartrate 25 mg PO BID 07/09/17 Multivitamin [Poly-Vitamin] 1 each PO DAILY 07/09/17 Omeprazole 20 mg PO DAILY 07/09/17 Polyethylene Glycol 3350 [Clearlax] 17 gm PO DAILY 07/09/17 Rivaroxaban [Xarelto -] 20 mg PO 1800 07/09/17 Zinc Sulfate 220 mg PO DAILY 07/09/17 Acetaminophen 650 mg PO Q8H PRN 07/10/17 Albuterol 2.5/Ipratropium 0.5 [Duoneb -] 1 amp NEB Q4H PRN #1 amp 07/15/17 Lisinopril [Prinivil] 5 mg PO DAILY #30 tablet 07/15/17 Cardiac Disorders: Yes (CAD, CHF,AFIB) COPD: No Dementia: Yes HTN: Yes Hypercholesterolemia: Yes Psychiatric Problems: Yes (DEPRESSION..) - Suicide/Smoking/Psychosocial Hx Smoking History: Unknown if ever smoked Have you smoked in the past 12 months: No Information on smoking cessation initiated: No Hx Alcohol Use: No Drug/Substance Use Hx: No Substance Use Type: None Review of Systems - Review of Systems Able to Perform ROS?: Yes Comments:: 11/06/18 10:26 GENERAL/CONSTITUTIONAL: (+) Fever. No chills. No weakness. HEAD, EYES, EARS, NOSE AND THROAT: No change in vision. No ear pain or discharge. No sore throat. CARDIOVASCULAR: No chest pain or shortness of breath. RESPIRATORY: (+) Cough. No wheezing, or hemoptysis. GASTROINTESTINAL: (+) Nausea, vomiting. No diarrhea or constipation. GENITOURINARY: No dysuria, frequency, or change in urination. MUSCULOSKELETAL: No joint or muscle swelling or pain. No neck or back pain. SKIN: No rash NEUROLOGIC: No headache, vertigo, loss of consciousness, or change in strength/ sensation. ENDOCRINE: No increased thirst. No abnormal weight change. HEMATOLOGIC/LYMPHATIC: No anemia, easy bleeding, or history of blood clots. ALLERGIC/IMMUNOLOGIC: No hives or skin allergy. All Other Systems: Reviewed and Negative *Physical Exam - Vital Signs Last Vital Signs Temp Pulse Resp BP Pulse Ox 101.6 F H 116 H 18 117/59 L 88 L 11/06/18 09:05 11/06/18 09:05 11/06/18 09:05 11/06/18 09:05 11/06/18 09:05 - Physical Exam Comments: 11/06/18 10:28 GENERAL: Awake, alert, and oriented x1, in no acute distress HEAD: No signs of trauma EYES: PERRLA, EOMI, sclera anicteric, conjunctiva clear ENT: Auricles normal inspection, hearing grossly normal, nares patent, oropharynx clear without exudates. Moist mucosa LUNGS: Bilateral expiratory wheezing, bilateral rhonchi. No crackles CHEST: S/p left mastectomy. HEART: Irregularly irregular,normal S1 and S2, no murmurs, rubs or gallops ABDOMEN: Soft, distended, nontender, normoactive bowel sounds. No guarding, no rebound. No masses EXTREMITIES: Normal range of motion, no edema. No clubbing or cyanosis. No cords, erythema, or tenderness NEUROLOGICAL: Cranial nerves II through XII grossly intact. Normal speech, normal gait SKIN: Warm, Dry, normal turgor, no rashes Heart Score/ECG Review #1 ECG reviewed & interpreted by me at: 09:30 11/06/18 10:17 Atrial fibrillation 108, STD V3-V6, no MELISSA, QTC 511 msec, normal axis ED Treatment Course - LABORATORY CBC & Chemistry Diagram: 11/08/18 05:30 11/08/18 05:30 - ADDITIONAL ORDERS Additional order review: 11/06/18 09:38 RBC 3.78 MCV 96.5 H MCHC 32.4 RDW 14.9 MPV 8.7 Neutrophils % 91.5 H D Lymphocytes % 3.5 L D Monocytes % 4.4 Eosinophils % 0.3 D Basophils % 0.3 - RADIOLOGY Radiology Studies Ordered: Category Date Time Status ABDOMEN & PELVIS CT W/O CONTR [CT] Stat CT Scan 11/06/18 10:08 Ordered CHEST X-RAY PORTABLE* [RAD] Stat Radiology 11/06/18 09:24 Taken Medical Decision Making - Critical Care Time Total Critical Care Time (minutes): 45 Critical Care Statement: The care of this patient involved high complexity decision making to prevent further life threatening deterioration of the patient 's condition and/or to evaluate & treat vital organ system(s) failure or risk of failure. - Medical Decision Making 11/06/18 10:16 A portion of this note was documented by scribe services under my direction. I have reviewed the details of the note, within reason, and agree with the documentation with the following case summary and management plan written by me. Patient treated in the ED. Nursing notes are reviewed and incorporated into the medical decision-making. Vital signs reviewed. Peripheral IV access obtained by the nurse, laboratory studies are drawn and sent, reviewed and interpreted by myself. Vital Signs Temp Pulse Resp BP Pulse Ox 101.6 F H 108 H 27 H 127/77 94 L 11/06/18 09:05 11/06/18 10:06 11/06/18 09:30 11/06/18 09:30 11/06/18 10:06 78 year old female with past medical history of hypertension, hyperlipidemia, atrial fibrillation, urinary disease, congestive heart failure, left breast cancer status post left-sided mastectomy, dementia, cholecystectomy presents from [facility] for vomiting. According to the patient's son,Andriy Reza , the patient was with a small cough yesterday but no other acute findings. Today, he received the phone call for patient with a fever 102. The patient had vomited as well as been coughing. Patient is sent from a long-term for an evaluation. Patient noted to have a fever, mild tachycardia as well as hypoxia to high 80s. Differential includes gastroenteritis, aspiration pneumonia, pneumonia, urinary tract infection. We'll cover empiric vancomycin and Zosyn. Even though the patient does not complain of abdominal pain, the abdomen is quite distended. We' ll obtain a CAT scan abdomen pelvis to rule out bowel obstruction. Chest x-ray rule out pneumonia. Sepsis protocol initiated. Patient is currently stable but guarded prognosis. Admission to the hospital. 11/06/18 10:18 Pt was given 650 mg rectal tylenol by her long-term prior to arrival. 11/06/18 12:51 CBC, BMP 11/06/18 09:38 11/06/18 09:38 CMP Sodium 139 mmol/L (136-145) 11/06/18 09:38 Potassium 4.1 mmol/L (3.5-5.1) 11/06/18 09:38 Chloride 104 mmol/L (98-107) 11/06/18 09:38 Carbon Dioxide 28 mmol/L (21-32) 11/06/18 09:38 Anion Gap 7 MMOL/L (8-16) L 11/06/18 09:38 BUN 18 mg/dL (7-18) 11/06/18 09:38 Creatinine 0.9 mg/dL (0.55-1.3) 11/06/18 09:38 Est GFR (CKD-EPI)AfAm 70.48 11/06/18 09:38 Est GFR (CKD-EPI)NonAf 60.81 11/06/18 09:38 Random Glucose 129 mg/dL (74-106) H 11/06/18 09:38 Lactic Acid 4.0 mmol/L (0.4-2.0) H* 11/06/18 09:40 Calcium 9.0 mg/dL (8.5-10.1) 11/06/18 09:38 Total Bilirubin 0.7 mg/dL (0.2-1) 11/06/18 09:38 AST 32 U/L (15-37) 11/06/18 09:38 ALT 29 U/L (13-61) 11/06/18 09:38 Alkaline Phosphatase 121 U/L (45-117) H 11/06/18 09:38 Troponin I 0.04 ng/ml (0.00-0.05) 11/06/18 09:40 Total Protein 6.9 g/dl (6.4-8.2) 11/06/18 09:38 Albumin 3.2 g/dl (3.4-5.0) L 11/06/18 09:38 Chest xray demonstrates no obvious findings. Urine Test Results Urine Color Yellow 11/06/18 09:38 Urine Appearance Cloudy 11/06/18 09:38 Urine pH 5.0 (5.0-8.0) 11/06/18 09:38 Ur Specific [place] 1.026 (1.010-1.035) 11/06/18 09:38 Urine Protein 2+ (NEGATIVE) H 11/06/18 09:38 Urine Glucose (UA) Negative (NEGATIVE) 11/06/18 09:38 Urine Ketones Negative (NEGATIVE) 11/06/18 09:38 Urine Blood 1+ (NEGATIVE) H 11/06/18 09:38 Urine Nitrite Positive (NEGATIVE) H 11/06/18 09:38 Urine Bilirubin Negative (NEGATIVE) 11/06/18 09:38 Ur Leukocyte Esterase Trace (NEGATIVE) 11/06/18 09:38 The patient had developed atrial fibrillation and rapid ventricular response. The patient has become increasingly delirious and agitated. Patient was given 2 doses of 0.5 mg of Ativan with some improvement. However, patient remained persistently febrile so was given IV Tylenol. Patient was given 2 doses of 10 mg IV diltiazem with improvement. However, patient remains hypoxic in the high 80s. Nonrebreather was placed on the patient. I discussed the status of DNR and DNI with the patient's son. Patient is confirmed to be DNR. However, the patient will discuss with the family with DNI. I did inform patient's son that the patient has poor prognosis. ICU was consulted and seeing the patient. 11/06/18 13:18 Pt's son confirms with me that the patient is DNI. 11/06/18 14:14 Pt's son also confirms no central lines or pressors. Dr. Gomes had seen and evaluated patient. Given DNR/DNI and no central lines, will send pt to telemetry. Dr. Paniagua at bedside who agrees. *DC/Admit/Observation/Transfer Diagnosis at time of Disposition: Hypoxia, Severe sepsis, Respiratory distress UTI (urinary tract infection) Qualifiers: Urinary tract infection type: site unspecified Hematuria presence: without hematuria Qualified Code(s): N39.0 - Urinary tract infection, site not specified - Discharge Dispostion Condition at time of disposition: Guarded Decision to Admit order: Yes - Referrals - Patient Instructions - Post Discharge Activity
[2018-11-06] MEDS ORDERED: SODIUM CHLORIDE 500 ML IV STA (11:10)
[2018-11-06] MEDS ORDERED: clonazePAM 0.5 MG TABLET PO ONE (11:42)
[2018-11-06 11:46] LABS: ANISOCYTOSIS 2+; MACROCYTOSIS 0; PLATELET ESTIMATE NORMAL
[2018-11-06] MEDS ORDERED: dilTIAZem HCL 50 MG/10 ML - 10 ML VIAL IVPUSH ONE ×2 (12:04→12:32)
[2018-11-06] MEDS ORDERED: ACETAMINOPHEN 1000 MG/100 ML VIAL (NON FORMULARY) IVPB ONE (12:05)
[2018-11-06] MEDS ORDERED: ACETAMINOPHEN INJECTION 100 ML IVPB ONE (12:06)
[2018-11-06] MEDS ORDERED: LORazepam 2 MG/ML SDV VIAL ONE ×2 (12:06→12:37)
[2018-11-06] MEDS ORDERED: dilTIAZem HCL 125 MG/25 ML - 25 ML VIAL ONE (12:06)
--- NOTE | 2018-11-06 13:43 | PN ---
Teaching Attending Note Name of Resident: Nellie Rey ATTENDING PHYSICIAN STATEMENT I saw and evaluated the patient. I reviewed the resident's note and discussed the case with the resident. I agree with the resident's findings and plan as documented. SUBJECTIVE: Pt seen and examined in the ER. Briefly, 78 year old female with h/o HTN, hyperlipidemia, atrial fibrillation, LV diastolic dysfunction, CAD, h/o breast ca s/p left mastectomy, Alzheimer's dementia who was transferred from the assisted for fever and vomiting. Pt unable to provide further history at this time, son at bedside. CXR without infiltrates, urinalysis suggestive of UTI. At baseline, pt mostly nonverbal, confined to wheelchair but mobile. Pt DNR /DNI but family undecided on vasopressors. Given IVF and antibiotics in the ER, placed on NRB for hypoxia but still with labored breaths. OBJECTIVE: Vital Signs Period Temp Pulse Resp BP Sys/Crawford Pulse Ox Last 24 Hr 101.6 F 84-140 18-37 54-171/20-84 84-95 Intake & Output 11/03/18 11/04/18 11/05/18 11/06/18 23:59 23:59 23:59 23:59 Weight 77.111 kg Gen: tachypneic with some accessory muscle use Heart: irregular Lung: scattered rhonchi Abd: soft, nontender Ext: no edema CBC, BMP 11/06/18 09:38 11/06/18 09:38 ASSESSMENT AND PLAN: Acute Hypoxic Respiratory Failure UTI Severe Sepsis Lactic Acidosis Atrial Fibrillation with RVR LV Diastolic Dysfunction CAD HTN Hyperlipidemia h/o Breast Ca s/p left mastectomy - IV antibiotics - f/u cultures - IVF boluses as needed - trend lactate, cardiac enzymes - monitor urine output, creatinine - O2 to keep Spo2 >90% - can trial BiPAP to assist in work of breathing - rate control - continue anticoagulation - pt DNR/DNI, family deciding on goals of care presently - ICU monitoring if they desire pressor support and further aggressive measures Trenton Gomes MD
--- NOTE | 2018-11-06 13:45 | CONSULT ---
Consultation: REQUESTING PROVIDER: CONSULT REQUEST: We have been asked to medically evaluate this patient for sepsis. HISTORY OF PRESENT ILLNESS: Pt is a 71yo F with PMH of Afib (on Xarelto), CAD, CHF (taking Digoxin), HTN, HLD, Breast Ca s/p L mastectomy, Alzheimer's Dementia sent from [facility] for fever and vomiting today. Son is present in room with patient and said he got a phone call about patient's status and that she has been having persistent coughs since yesterday. She was found to be febrile to 101.6 and was given [place] Tylenol. Patient is unable to provide much history, majority obtained by son. Per son, patient is AOx1 at baseline. In the ED patient was found to be febrile, afib with RVR, hypoxic in the mid 80s and tachypneic. Patient was still febrile and given IV Tylenol also started on vancomycin and zosyn for empiric coverage. Patient was given Cardizem 10mg x2 IVPush which seems to have improved HR but patient continues to have HR in 90s-100s. Patient is currently on NRB and saturating in the mid 90s. Due to history of CHF, patient was given 500mL fluid bolus. CXR did not show anything acute and CTAP also negative for acute findings. Labs significant for WBC 11, lactic acid of 4, UA positive for infection. Son: Andriy Reza Patient has documented DNR/DNI REVIEW OF SYSTEMS: Unable to obtain thorough ROS from patient due to mental status PHYSICAL EXAMINATION Vital Signs - 24 hr 11/06/18 11/06/18 11/06/18 09:05 09:15 09:30 Temperature 101.6 F H Pulse Rate 116 H Pulse Rate [ 108 H 105 H Apical] Respiratory 18 28 H 27 H Rate Blood Pressure 117/59 L Blood Pressure 117/78 127/77 [Right Arm] O2 Sat by Pulse 88 L 87 L 94 L Oximetry (%) 11/06/18 11/06/18 11/06/18 10:06 10:39 11:05 Temperature Pulse Rate 108 H Pulse Rate [ 103 H Apical] Respiratory 26 H Rate Blood Pressure Blood Pressure 122/77 [Right Arm] O2 Sat by Pulse 94 L 94 L 93 L Oximetry (%) 11/06/18 11/06/18 11/06/18 11:20 12:05 12:10 Temperature Pulse Rate Pulse Rate [ 125 H 140 H 137 H Apical] Respiratory 28 H 30 H 24 H Rate Blood Pressure Blood Pressure 171/84 H 139/70 131/81 [Right Arm] O2 Sat by Pulse 95 94 L 91 L Oximetry (%) 11/06/18 11/06/18 11/06/18 12:50 12:55 13:00 Temperature Pulse Rate Pulse Rate [ 93 H 87 Apical] Respiratory 37 H 30 H Rate Blood Pressure Blood Pressure 101/64 54/20 L [Right Arm] O2 Sat by Pulse 85 L 84 L 94 L Oximetry (%) 11/06/18 11/06/18 11/06/18 13:10 13:20 13:30 Temperature Pulse Rate Pulse Rate [ 86 88 84 Apical] Respiratory 30 H 32 H 30 H Rate Blood Pressure Blood Pressure 55/27 L 82/60 L 95/53 L [Right Arm] O2 Sat by Pulse 92 L 92 L 93 L Oximetry (%) GENERAL: Awake, alert, and AOx1, moderate distress HEAD: Normal with no signs of trauma. EYES: Pupils equal, round and reactive to light, sclera anicteric, conjunctiva clear. Unable to assess EOM due to patient not obeying commands. NECK: Normal range of motion, supple without lymphadenopathy, JVD, or masses. LUNGS: Course rhonchi in both lung adams, tachypneic HEART: irregularly irregular, normal S1 and S2 without murmur, rub or gallop. ABDOMEN: Soft, nontender, not distended, normoactive bowel sounds, no guarding, no rebound, no masses. No hepatomegaly or splenomegaly. UPPER EXTREMITIES: 2+ pulses, warm, well-perfused. No cyanosis. No clubbing. Cap refill <2 seconds. No peripheral edema. LOWER EXTREMITIES: 2+ pulses, warm, well-perfused. No calf tenderness. No peripheral edema. NEUROLOGICAL: Cranial nerves II-XII intact SKIN: Warm, dry, normal turgor, no rashes or lesions noted. Laboratory Results - last 24 hr 11/06/18 11/06/18 11/06/18 09:38 09:38 09:38 WBC 11.6 H RBC 3.78 Hgb 11.8 Hct 36.5 D MCV 96.5 H MCH 31.3 MCHC 32.4 RDW 14.9 Plt Count 268 MPV 8.7 Absolute Neuts (auto) 10.6 H Neutrophils % 91.5 H D Neutrophils % (Manual) 87.0 H Band Neutrophils % 5.0 Lymphocytes % 3.5 L D Lymphocytes % (Manual) 3.0 L D Monocytes % 4.4 Monocytes % (Manual) 4 Eosinophils % 0.3 D Eosinophils % (Manual) 0.0 Basophils % 0.3 Basophils % (Manual) 0.0 Myelocytes % (Man) 0 Promyelocytes % (Man) 0 Blast Cells % (Manual) 0 Nucleated RBC % 0 Metamyelocytes 0 Hypochromia 0 Platelet Estimate Normal Platelet Comment Present Polychromasia 0 Poikilocytosis 1+ Anisocytosis 2+ Microcytosis 1+ Macrocytosis 0 Spherocytes 2+ Milady Cells 1+ Schistocytes 1+ PT with INR 14.90 H INR 1.26 H PTT (Actin FS) 32.5 VBG pH POC VBG pCO2 POC VBG pO2 VBG HCO3 VBG O2 Sat (Christophe) VBG Base Excess Sodium Potassium Chloride Carbon Dioxide Anion Gap BUN Creatinine Est GFR (CKD-EPI)AfAm Est GFR (CKD-EPI)NonAf Random Glucose Lactic Acid Calcium Total Bilirubin AST ALT Alkaline Phosphatase Troponin I Total Protein Albumin Urine Color Yellow Urine Appearance Cloudy Urine pH 5.0 Ur Specific [place] 1.026 Urine Protein 2+ H Urine Glucose (UA) Negative Urine Ketones Negative Urine Blood 1+ H Urine Nitrite Positive H Urine Bilirubin Negative Urine Urobilinogen 1.0 Ur Leukocyte Esterase Trace Urine WBC (Auto) 63 Urine RBC (Auto) 2 Urine Casts (Auto) 53 U Epithel Cells (Auto) 0.4 Urine Bacteria (Auto) 743.9 11/06/18 11/06/18 11/06/18 09:38 09:38 09:40 WBC RBC Hgb Hct MCV MCH MCHC RDW Plt Count MPV Absolute Neuts (auto) Neutrophils % Neutrophils % (Manual) Band Neutrophils % Lymphocytes % Lymphocytes % (Manual) Monocytes % Monocytes % (Manual) Eosinophils % Eosinophils % (Manual) Basophils % Basophils % (Manual) Myelocytes % (Man) Promyelocytes % (Man) Blast Cells % (Manual) Nucleated RBC % Metamyelocytes Hypochromia Platelet Estimate Platelet Comment Polychromasia Poikilocytosis Anisocytosis Microcytosis Macrocytosis Spherocytes [place] Cells Schistocytes PT with INR INR PTT (Actin FS) VBG pH 7.30 L POC VBG pCO2 59.3 H POC VBG pO2 24.1 L VBG HCO3 28.3 VBG O2 Sat (Christophe) 29.0 L VBG Base Excess 0.3 Sodium 139 Potassium 4.1 Chloride 104 Carbon Dioxide 28 Anion Gap 7 L BUN 18 Creatinine 0.9 Est GFR (CKD-EPI)AfAm 70.48 Est GFR (CKD-EPI)NonAf 60.81 Random Glucose 129 H Lactic Acid 4.0 H* Calcium 9.0 Total Bilirubin 0.7 AST 32 ALT 29 Alkaline Phosphatase 121 H Troponin I Total Protein 6.9 Albumin 3.2 L Urine Color Urine Appearance Urine pH Ur Specific [place] Urine Protein Urine Glucose (UA) Urine Ketones Urine Blood Urine Nitrite Urine Bilirubin Urine Urobilinogen Ur Leukocyte Esterase Urine WBC (Auto) Urine RBC (Auto) Urine Casts (Auto) U Epithel Cells (Auto) Urine Bacteria (Auto) 11/06/18 09:40 WBC RBC Hgb Hct MCV MCH MCHC RDW Plt Count MPV Absolute Neuts (auto) Neutrophils % Neutrophils % (Manual) Band Neutrophils % Lymphocytes % Lymphocytes % (Manual) Monocytes % Monocytes % (Manual) Eosinophils % Eosinophils % (Manual) Basophils % Basophils % (Manual) Myelocytes % (Man) Promyelocytes % (Man) Blast Cells % (Manual) Nucleated RBC % Metamyelocytes Hypochromia Platelet Estimate Platelet Comment Polychromasia Poikilocytosis Anisocytosis Microcytosis Macrocytosis Spherocytes Milady Cells Schistocytes PT with INR INR PTT (Actin FS) VBG pH POC VBG pCO2 POC VBG pO2 VBG HCO3 VBG O2 Sat (Christophe) VBG Base Excess Sodium Potassium Chloride Carbon Dioxide Anion Gap BUN Creatinine Est GFR (CKD-EPI)AfAm Est GFR (CKD-EPI)NonAf Random Glucose Lactic Acid Calcium Total Bilirubin AST ALT Alkaline Phosphatase Troponin I 0.04 Total Protein Albumin Urine Color Urine Appearance Urine pH Ur Specific [place] Urine Protein Urine Glucose (UA) Urine Ketones Urine Blood Urine Nitrite Urine Bilirubin Urine Urobilinogen Ur Leukocyte Esterase Urine WBC (Auto) Urine RBC (Auto) Urine Casts (Auto) U Epithel Cells (Auto) Urine Bacteria (Auto) ASSESSMENT/PLAN: NEURO -History of Alzheimer's Dementia, AOx1 at baseline -Continue home meds -Will monitor for declining status CARDIO/VASC -History of CHF, CAD, Afib (on Xarelto) -Afib RVR in ED broken with Cardizem 10mg x2 -Does not require drip at this time -PRN Cardizem bolus -Trop 0.04 -Maintain MAP >65 -Cardiology consult PULM -History of CHF -CXR does not show acute findings -Hypoxia -DNR/DNI on NRB, currently saturating in mid 90s -Bilevel prn -PNA v. aspiration v. overload -Vancomycin and Zosyn ID -Sepsis likely 2/2 UTI v. PNA -UA: +nitrite, +LE, +WBC, +bacteria -Vancomycin and Zosyn started in ED -Lactic acid 4, repeat pending -Vanc, Zosyn -ID consult GI -History of vomiting today -Likely 2/2 coughing -CTAP negative for acute pathology -Will monitor RENAL -No active issues -Will monitor HEME/ONC -History of Breast Ca s/p lumpectomy -No active issues ENDO -Electrolytes wnl -TSH -Will trend FEN -NPO for now PROPHYLAXIS -Xarelto (home med) -SCDs Dispo: We will continue to follow the patient. Thank you for this consultative opportunity. Visit type - Emergency Visit Emergency Visit: Yes ED Registration Date: 11/06/18 Care time: The patient presented to the Emergency Department on the above date and was hospitalized for further evaluation of their emergent condition. - New Patient This patient is new to me today: Yes Date on this admission: 11/06/18 - Critical Care Critical Care patient: Yes Total Critical Care Time (in minutes): 35 Critical Care Statement: The care of this patient involved high complexity decision making to prevent further life threatening deterioration of the patient 's condition and/or to evaluate & treat vital organ system(s) failure or risk of failure.
--- NOTE | 2018-11-06 14:26 | HP ---
Admitting History and Physical - Primary Care Physician PCP: Sasha Paniagua - Admission History of Present Illness: pt seen/ examined in er chart reviewed discussed with er physician/icu attending/ resident/ nursing staff Discussed with pts sons also who at bedside In summary Pt is a 71yo F with PMH of Afib (on Xarelto), CAD, CHF (taking Digoxin), HTN, HLD, Breast Ca s/p L mastectomy, Alzheimer's Dementia sent from [facility] for fever and vomiting today. Son is present in room with patient and said he got a phone call about patient's status and that she has been having persistent coughs since yesterday. She was found to be febrile to 101.6 and was given [place] Tylenol. Patient is unable to provide much history, majority obtained by son. Per son, patient is AOx1 at baseline. In the ED patient was found to be febrile, afib with RVR, hypoxic in the mid 80s and tachypneic. Patient was still febrile and given IV Tylenol also started on vancomycin and zosyn for empiric coverage. Patient was given Cardizem 10mg x2 IVPush which seems to have improved HR but patient continues to have HR in 90s-100s. Patient is currently on NRB and saturating in the mid 90s. Due to history of CHF, patient was given 500mL fluid bolus. CXR did not show anything acute and CTAP also negative for acute findings. Labs significant for WBC 11, lactic acid of 4, UA positive for infection. Son: Andriy Reza Patient has documented DNR/DNI Pt also received cardizem i/v for rapid afib At time of my exam in er-- pt poorly responsive hypotensive History Source: Family Member, Medical Record Limitations to Obtaining History: Clinical Condition, Dementia - Past Medical History SOLUTIONS SPECIALIST: Yes: Dementia Cardiovascular: Yes: AFIB, CHF Gastrointestinal: Yes: Other (Appendectomy at age 4 and, reexploration, laparotomy 5 years ago) Hepatobiliary: Yes: Cholecystitis (son gives h/o cholecystitits in past) - Past Surgical History Past Surgical History: Yes: Mastectomy (left sided) - Smoking History Smoking history: Unknown if ever smoked Have you smoked in the past 12 months: No - Alcohol/Substance Use Hx Alcohol Use: No - Social History ADL: Support Services Home Medications - Allergies Allergies/Adverse Reactions: Allergies Allergy/AdvReac Type Severity Reaction Status Date / Time No Known Allergies Allergy Verified 11/06/18 09:23 - Home Medications Home Medications: Ambulatory Orders Anastrozole [Arimidex -] 1 mg PO DAILY 07/09/17 Atorvastatin Ca [Lipitor] 10 mg PO HS 07/09/17 Clonazepam 0.5 mg PO TID 07/09/17 Digoxin [Lanoxin -] 0.125 mg PO Q48H 07/09/17 Divalproex [Depakote -] 250 mg PO BID 07/09/17 Donepezil HCl 10 mg PO HS 07/09/17 Escitalopram Oxalate [Lexapro -] 20 mg PO DAILY 07/09/17 Folic Acid 1 mg PO DAILY 07/09/17 Furosemide 20 mg PO DAILY 07/09/17 Isosorbide Mononitrate [Isosorbide Mononitrate ER] 30 mg PO DAILY 07/09/17 Loratadine 10 mg PO DAILY 07/09/17 Melatonin 2 mg PO HS 07/09/17 Metoprolol Tartrate 25 mg PO BID 07/09/17 Multivitamin [Poly-Vitamin] 1 each PO DAILY 07/09/17 Omeprazole 20 mg PO DAILY 07/09/17 Polyethylene Glycol 3350 [Clearlax] 17 gm PO DAILY 07/09/17 Rivaroxaban [Xarelto -] 20 mg PO 1800 07/09/17 Zinc Sulfate 220 mg PO DAILY 07/09/17 Acetaminophen 650 mg PO Q8H PRN 07/10/17 Albuterol 2.5/Ipratropium 0.5 [Duoneb -] 1 amp NEB Q4H PRN #1 amp 07/15/17 Lisinopril [Prinivil] 5 mg PO DAILY #30 tablet 07/15/17 Review of Systems Unable to obtain ROS, reason: clinical condition Physical Examination Vital Signs: Vital Signs Temperature 101.6 F H 11/06/18 09:05 Pulse Rate 84 11/06/18 13:30 Respiratory Rate 30 H 11/06/18 13:30 Blood Pressure 95/53 L 11/06/18 13:30 O2 Sat by Pulse Oximetry (%) 93 L 11/06/18 13:30 Constitutional: Yes: Moderate Distress Neck: Yes: Supple Cardiovascular: Yes: Tachycardia, Pulse Irregular Respiratory: Yes: Diminished Gastrointestinal: Yes: Soft Edema: No Labs: CBC, BMP 11/06/18 09:38 11/06/18 09:38 Imaging - Results Cat Scan: Report Reviewed Problem List - Problems (1) Respiratory distress Code(s): R06.03 - ACUTE RESPIRATORY DISTRESS (2) Severe sepsis Code(s): A41.9 - SEPSIS, UNSPECIFIED ORGANISM; R65.20 - SEVERE SEPSIS WITHOUT SEPTIC SHOCK (3) Anticoagulation adequate with anticoagulant therapy Code(s): Z79.01 - NURSING HOME (CURRENT) USE OF ANTICOAGULANTS (4) Atrial fibrillation Code(s): I48.91 - UNSPECIFIED ATRIAL FIBRILLATION Qualifiers: Atrial fibrillation type: persistent Qualified Code(s): I48.1 - Persistent atrial fibrillation (5) Pelvic fracture Code(s): S32.9XXA - FRACTURE OF UNSP PARTS OF LUMBOSACRAL SPINE AND PELVIS, INIT Assessment/Plan Discussed in detail with family goal comfort care fluids abx chronic pelvic fracture on ct scan i/d consult as well as cardiology prognosis poor pt is dnr/ di will follow
[2018-11-06] MEDS: SODIUM CHLORIDE 1,000 ML IV SCH (15:34)
[2018-11-06] MEDS ORDERED: ACETAMINOPHEN 1000 MG/100 ML VIAL (NON FORMULARY) IVPB PRN (21:11)
[2018-11-06] MEDS ORDERED: CHLORHEXIDINE GLUCONATE 4% CLEANSER FOR DECOLONIZATION TP SCH (22:00)
[2018-11-06] MEDS ORDERED: MUPIROCIN 2% TOPICAL OINTMENT FOR DECOLONIZATION NS SCH (22:00)
[2018-11-07 05:53] VITALS: BMI 28.0
[2018-11-07 07:11] LABS: BASO % 0.3 % (0-2.0); EOS % 1.1 % (0-4.5); HEMATOCRIT 30.2 % (32.4-45.2); LYMPH % 9.5 % (8-40); MCH 31.7 pg (25.7-33.7); MCHC 33.1 g/dl (32.0-36.0); MEAN CELL VOLUME 95.8 fl (80-96); MEAN PLT VOLUME 8.5 fl (7.5-11.1); MONO % 5.8 % (3.8-10.2); NEUT % 83.3 % (42.8-82.8); PLATELET COUNT 227 K/MM3 (134-434); RBC 3.15 M/mm3 (3.60-5.2); WHITE BLOOD COUNT 9.5 K/mm3 (4.0-10.0)
[2018-11-07 08:41] LABS: ALBUMIN 2.5 g/dl (3.4-5.0); BILIRUBIN,TOTAL 1.2 mg/dL (0.2-1); CALCIUM 8.5 mg/dL (8.5-10.1); CREATININE 0.7 mg/dL (0.55-1.3); MAGNESIUM 1.9 mg/dL (1.8-2.4); PHOSPHOROUS 2.9 mg/dL (2.5-4.9); POTASSIUM 3.9 mmol/L (3.5-5.1); TOT PROT 5.6 g/dl (6.4-8.2)
[2018-11-07] MEDS ORDERED: cefTRIAXone SODIUM 1 GM VIAL ONE (11:34)
[2018-11-07] MEDS ORDERED: DEXTROSE 5%-WATER - 50 ML IVPB ONE (11:34)
[2018-11-07] MEDS: CEFTRIAXONE 1 GM in DEXTROSE 5%-WATER - 50 ML IVPB SCH (11:36)
--- NOTE | 2018-11-07 11:50 | PN ---
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 (short form) - Note 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: events noted awake and alert BIPAP+ Vital Signs - 24 hr 11/06/18 11/06/18 11/06/18 12:05 12:10 12:50 Temperature Pulse Rate Pulse Rate [ 140 H 137 H 93 H Apical] Respiratory 30 H 24 H 37 H Rate Blood Pressure Blood Pressure 139/70 131/81 101/64 [Right Arm] O2 Sat by Pulse 94 L 91 L 85 L Oximetry (%) 11/06/18 11/06/18 11/06/18 12:55 13:00 13:10 Temperature Pulse Rate Pulse Rate [ 87 86 Apical] Respiratory 30 H 30 H Rate Blood Pressure Blood Pressure 54/20 L 55/27 L [Right Arm] O2 Sat by Pulse 84 L 94 L 92 L Oximetry (%) 11/06/18 11/06/18 11/06/18 13:20 13:30 14:30 Temperature Pulse Rate Pulse Rate [ 88 84 99 H Apical] Respiratory 32 H 30 H 26 H Rate Blood Pressure Blood Pressure 82/60 L 95/53 L 111/70 [Right Arm] O2 Sat by Pulse 92 L 93 L 98 Oximetry (%) 11/06/18 11/06/18 11/06/18 15:45 16:00 16:45 Temperature Pulse Rate Pulse Rate [ 104 H 119 H 118 H Apical] Respiratory 26 H 22 H 22 H Rate Blood Pressure Blood Pressure 101/67 96/60 84/49 L [Right Arm] O2 Sat by Pulse 99 99 95 Oximetry (%) 11/06/18 11/06/18 11/06/18 18:15 19:45 20:45 Temperature 101.3 F H Pulse Rate 126 H Pulse Rate [ 114 H 119 H Apical] Respiratory 24 H 26 H 25 H Rate Blood Pressure 107/69 Blood Pressure 111/63 126/69 [Right Arm] O2 Sat by Pulse 97 96 94 L Oximetry (%) 11/06/18 11/07/18 11/07/18 21:00 01:53 03:54 Temperature 99.4 F Pulse Rate 116 H Pulse Rate [ 120 H Apical] Respiratory 25 H 20 Rate Blood Pressure 102/69 Blood Pressure 120/69 [Right Arm] O2 Sat by Pulse 94 L 92 L Oximetry (%) 11/07/18 11/07/18 11/07/18 05:00 06:17 08:32 Temperature 99.5 F Pulse Rate 108 H Pulse Rate [ Apical] Respiratory 22 H Rate Blood Pressure 120/81 Blood Pressure [Right Arm] O2 Sat by Pulse 97 97 Oximetry (%) 11/07/18 11:32 Temperature Pulse Rate Pulse Rate [ Apical] Respiratory Rate Blood Pressure Blood Pressure [Right Arm] O2 Sat by Pulse 96 Oximetry (%) Current Medications Generic Name Dose Route Start Last Admin Trade Name Freq PRN Reason Stop Dose Admin Acetaminophen 1,000 mg 11/06/18 21:11 11/06/18 22:28 Ofirmev Injection - IVPB 1,000 mg Q8H PRN Administration FEVER Chlorhexidine Gluconate 1 applic 11/06/18 22:00 11/06/18 22:29 Hibiclens For Decolonization - TP Not Given HS CLAYTON Sodium Chloride 1,000 mls @ 100 mls/hr 11/06/18 14:30 11/06/18 15:34 Normal Saline - IV 100 mls/hr ASDIR CLAYTON Administration Ceftriaxone Sodium 1 gm/ 50 mls @ 100 mls/hr 11/07/18 11:00 11/07/18 11:36 Dextrose IVPB 100 mls/hr DAILY CLAYTON Administration Laboratory Results - last 24 hr 11/06/18 11/06/18 11/06/18 09:38 09:38 09:40 WBC RBC Hgb Hct MCV MCH MCHC RDW Plt Count MPV Absolute Neuts (auto) Neutrophils % Neutrophils % (Manual) 87.0 H Band Neutrophils % 5.0 Lymphocytes % Lymphocytes % (Manual) 3.0 L D Monocytes % Monocytes % (Manual) 4 Eosinophils % Eosinophils % (Manual) 0.0 Basophils % Basophils % (Manual) 0.0 Myelocytes % (Man) 0 Promyelocytes % (Man) 0 Blast Cells % (Manual) 0 Nucleated RBC % Metamyelocytes 0 Hypochromia 0 Platelet Estimate Normal Platelet Comment Present Polychromasia 0 Poikilocytosis 1+ Anisocytosis 2+ Microcytosis 1+ Macrocytosis 0 Spherocytes 2+ Milady Cells 1+ Schistocytes 1+ PTT (Actin FS) Sodium 139 Potassium 4.1 Chloride 104 Carbon Dioxide 28 Anion Gap 7 L BUN 18 Creatinine 0.9 Est GFR (CKD-EPI)AfAm 70.48 Est GFR (CKD-EPI)NonAf 60.81 Random Glucose 129 H Lactic Acid 4.0 H* Calcium 9.0 Phosphorus Magnesium Total Bilirubin 0.7 AST 32 ALT 29 Alkaline Phosphatase 121 H Total Protein 6.9 Albumin 3.2 L TSH Digoxin 0.54 L 11/06/18 11/07/18 11/07/18 13:09 05:30 05:30 WBC 9.5 RBC 3.15 L Hgb 10.0 L Hct 30.2 L D MCV 95.8 MCH 31.7 MCHC 33.1 RDW 15.0 Plt Count 227 MPV 8.5 Absolute Neuts (auto) 7.9 Neutrophils % 83.3 H Neutrophils % (Manual) Band Neutrophils % Lymphocytes % 9.5 D Lymphocytes % (Manual) Monocytes % 5.8 Monocytes % (Manual) Eosinophils % 1.1 D Eosinophils % (Manual) Basophils % 0.3 Basophils % (Manual) Myelocytes % (Man) Promyelocytes % (Man) Blast Cells % (Manual) Nucleated RBC % 0 Metamyelocytes Hypochromia Platelet Estimate Platelet Comment Polychromasia Poikilocytosis Anisocytosis Microcytosis Macrocytosis Spherocytes Milady Cells Schistocytes PTT (Actin FS) Sodium 140 Potassium 3.9 Chloride 108 H Carbon Dioxide 26 Anion Gap 7 L BUN 21 H Creatinine 0.7 Est GFR (CKD-EPI)AfAm 95.51 Est GFR (CKD-EPI)NonAf 82.41 Random Glucose 73 L Lactic Acid 4.1 H* Calcium 8.5 Phosphorus 2.9 Magnesium 1.9 Total Bilirubin 1.2 H AST 37 ALT 36 Alkaline Phosphatase 90 Total Protein 5.6 L Albumin 2.5 L TSH 0.65 Digoxin 11/07/18 11/07/18 05:30 05:30 WBC RBC Hgb Hct MCV MCH MCHC RDW Plt Count MPV Absolute Neuts (auto) Neutrophils % Neutrophils % (Manual) Band Neutrophils % Lymphocytes % Lymphocytes % (Manual) Monocytes % Monocytes % (Manual) Eosinophils % Eosinophils % (Manual) Basophils % Basophils % (Manual) Myelocytes % (Man) Promyelocytes % (Man) Blast Cells % (Manual) Nucleated RBC % Metamyelocytes Hypochromia Platelet Estimate Platelet Comment Polychromasia Poikilocytosis Anisocytosis Microcytosis Macrocytosis Spherocytes [place] Cells Schistocytes PTT (Actin FS) 34.5 Sodium Potassium Chloride Carbon Dioxide Anion Gap BUN Creatinine Est GFR (CKD-EPI)AfAm Est GFR (CKD-EPI)NonAf Random Glucose Lactic Acid 1.2 Calcium Phosphorus Magnesium Total Bilirubin AST ALT Alkaline Phosphatase Total Protein Albumin TSH Digoxin S1 s2 irregular Lungs decreased Abd- soft, NT no edema PLAN family prefers- comfort care fluids abx chronic pelvic fracture on ct scan i/d consult as well as cardiology prognosis poor pt is dnr/ DNI start diet urine culture positive Problem List - Problems (1) Pelvic fracture Code(s): S32.9XXA - FRACTURE OF UNSP PARTS OF LUMBOSACRAL SPINE AND PELVIS, INIT (2) Respiratory distress Code(s): R06.03 - ACUTE RESPIRATORY DISTRESS (3) Severe sepsis Code(s): A41.9 - SEPSIS, UNSPECIFIED ORGANISM; R65.20 - SEVERE SEPSIS WITHOUT SEPTIC SHOCK (4) UTI (urinary tract infection) Code(s): N39.0 - URINARY TRACT INFECTION, SITE NOT SPECIFIED Qualifiers: Urinary tract infection type: site unspecified Hematuria presence: without hematuria Qualified Code(s): N39.0 - Urinary tract infection, site not specified
--- NOTE | 2018-11-07 12:10 | EKG ---
Test Reason : Blood Pressure : / mmHG Vent. Rate : 108 BPM Atrial Rate : 234 BPM P-R Int : 000 ms QRS Dur : 094 ms QT Int : 382 ms P-R-T Axes : 000 051 -60 degrees QTc Int : 511 ms ATRIAL FIBRILLATION WITH RAPID VENTRICULAR RESPONSE ABNORMAL ECG WHEN COMPARED WITH ECG OF 09-JUL-2017 11:15, NO SIGNIFICANT CHANGE WAS FOUND Confirmed by MD Rivera Daniel ([id number]) on 11/07/2018 12:10:31 PM Referred By: Confirmed By:Huey Rivera MD
--- NOTE | 2018-11-07 12:28 | CON.ID ---
Consult Consult Specialty:: infectious diseases Referred by:: Reason for Consultation:: sepsis,fever. ams - History of Present Illness Chief Complaint: ams History of Present Illness: 71yo F with PMH of Afib (on Xarelto), CAD, CHF (taking Digoxin), HTN, HLD, Breast Ca s/p L mastectomy, Alzheimer's Dementia sent from [facility] for fever and vomiting today. Son is present in room with patient and said he got a phone call about patient's status and that she has been having persistent coughs since yesterday. She was found to be febrile to 101.6 and was given SD Tylenol. Patient is unable to provide much history, majority obtained by son. Per son, patient is AOx1 at baseline. In the ED patient was found to be febrile, afib with RVR, hypoxic in the mid 80s and tachypneic. Patient was still febrile and given IV Tylenol also started on vancomycin and zosyn for empiric coverage. Patient was given Cardizem 10mg x2 IVPush which seems to have improved HR but patient continues to have HR in 90s-100s. Patient is currently on NRB and saturating in the mid 90s. Due to history of CHF, patient was given 500mL fluid bolus. CXR did not show anything acute and CTAP also negative for acute findings. Labs significant for WBC 11, lactic acid of 4, UA positive for infection. 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 Cardio/Vascular: Yes: AFIB, CHF Gastrointestinal: Yes: Other (Appendectomy at age 4 and, reexploration, laparotomy 5 years ago) Hepatobiliary: Yes: Cholecystitis (son gives h/o cholecystitits in past) - Past Surgical History Past Surgical History: Yes: Mastectomy (left sided) - Alcohol/Substance Use Hx Alcohol Use: No - Smoking History Smoking history: Unknown if ever smoked Have you smoked in the past 12 months: No - Social History Usual Living Arrangement: Jail ADL: Support Services Home Medications - Allergies Allergies/Adverse Reactions: Allergies Allergy/AdvReac Type Severity Reaction Status Date / Time No Known Allergies Allergy Verified 11/06/18 09:23 - Home Medications Home Medications: Ambulatory Orders RX: Anastrozole [Arimidex -] 1 mg PO DAILY 07/09/17 RX: Atorvastatin Ca [Lipitor] 10 mg PO HS 07/09/17 RX: Clonazepam 0.5 mg PO TID 07/09/17 RX: Digoxin [Lanoxin -] 0.125 mg PO Q48H 07/09/17 RX: Divalproex [Depakote -] 250 mg PO BID 07/09/17 RX: Donepezil HCl 10 mg PO HS 07/09/17 RX: Escitalopram Oxalate [Lexapro -] 20 mg PO DAILY 07/09/17 RX: Folic Acid 1 mg PO DAILY 07/09/17 RX: Furosemide 20 mg PO DAILY 07/09/17 RX: Isosorbide Mononitrate [Isosorbide Mononitrate ER] 30 mg PO DAILY 07/09/17 RX: Loratadine 10 mg PO DAILY 07/09/17 RX: Melatonin 2 mg PO HS 07/09/17 RX: Metoprolol Tartrate 25 mg PO BID 07/09/17 RX: Multivitamin [Poly-Vitamin] 1 each PO DAILY 07/09/17 RX: Omeprazole 20 mg PO DAILY 07/09/17 RX: Polyethylene Glycol 3350 [Clearlax] 17 gm PO DAILY 07/09/17 RX: Rivaroxaban [Xarelto -] 20 mg PO 1800 07/09/17 RX: Zinc Sulfate 220 mg PO DAILY 07/09/17 RX: Acetaminophen 650 mg PO Q8H PRN 07/10/17 RX: Albuterol 2.5/Ipratropium 0.5 [Duoneb -] 1 amp NEB Q4H PRN #1 amp 07/15/17 RX: Lisinopril [Prinivil] 5 mg PO DAILY #30 tablet 07/15/17 Review of Systems Unable to obtain ROS, reason: unable to obtain Physical Exam Vital Signs: Vital Signs Temperature 99.5 F 11/07/18 05:00 Pulse Rate 108 H 11/07/18 05:00 Respiratory Rate 22 H 11/07/18 05:00 Blood Pressure 120/81 11/07/18 05:00 O2 Sat by Pulse Oximetry (%) 96 11/07/18 11:32 Constitutional: Yes: No Distress, Calm Cardiovascular: Yes: Pulse Irregular Respiratory: Yes: Regular, CTA Bilaterally Gastrointestinal: Yes: Normal Bowel Sounds, Soft Musculoskeletal: Yes: WNL Extremities: Yes: WNL Neurological: Yes: Alert, Confusion Psychiatric: Yes: Other Labs: CBC, BMP 11/07/18 05:30 11/07/18 05:30 Imaging - Results Chest X-ray: Report Reviewed, Image Reviewed Cat Scan: Report Reviewed, Image Reviewed Assessment/Plan Problem List - Problems (1) Pelvic fracture Code(s): S32.9XXA - FRACTURE OF UNSP PARTS OF LUMBOSACRAL SPINE AND PELVIS, INIT (2) Respiratory distress Code(s): R06.03 - ACUTE RESPIRATORY DISTRESS (3) Severe sepsis Code(s): A41.9 - SEPSIS, UNSPECIFIED ORGANISM; R65.20 - SEVERE SEPSIS WITHOUT SEPTIC SHOCK (4) UTI (urinary tract infection) Code(s): N39.0 - URINARY TRACT INFECTION, SITE NOT SPECIFIED Qualifiers: Urinary tract infection type: site unspecified Hematuria presence: without hematuria Qualified Code(s): N39.0 - Urinary tract infection, site not specified plan await for all cx reports will continue ceftriaxone and monitor monitor fevers and mental status d/w the son
--- NOTE | 2018-11-07 12:30 | CON.CARD ---
Consult Consult Specialty:: Cardiology Referred by:: Dr. Sasha Paniagua Reason for Consultation:: Cardiac evaluation - History of Present Illness Chief Complaint: Fever, tachycardia (AF with RVR) and SOB History of Present Illness: Patient is a 71 year old female with underlying history of AF on DOAC (Xarelto) , CAD, CHF, HTN, hypercholesterolemia, breast CA s/p left mastectomy and organic brain syndrome/dementia who presents from [place] for fever and vomiting. She was found to be febile at 101.6 on admission and was given Tylenol per rectum. According to medical records, she was found to be in AF with RVR and was given Cardizem IV in the ER. She was tachypeic and was placed on O2 and BIPAP. Antibiotics were given for empiric coverage. Currently she remains of BIPAP, is arousable. Monitor still reveals RVR. She denies chest pain. Denies abdominal pain, nausea, vomiting or diarrhea. She denies headache or lightheadedness. 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 Cardio/Vascular: Yes: AFIB, CAD, CHF, HTN, Hyperlipdemia Pulmonary: Yes: COPD Hepatobiliary: Yes: Cholecystitis (son gives h/o cholecystitits in past) - Past Surgical History Past Surgical History: Yes: Mastectomy (left sided) - Alcohol/Substance Use Hx Alcohol Use: No - Smoking History Smoking history: Unknown if ever smoked Have you smoked in the past 12 months: No - Social History Usual Living Arrangement: [facility] ADL: Support Services Home Medications - Allergies Allergies/Adverse Reactions: Allergies Allergy/AdvReac Type Severity Reaction Status Date / Time No Known Allergies Allergy Verified 11/06/18 09:23 - Home Medications Home Medications: Ambulatory Orders Anastrozole [Arimidex -] 1 mg PO DAILY 07/09/17 Atorvastatin Ca [Lipitor] 10 mg PO HS 07/09/17 Clonazepam 0.5 mg PO TID 07/09/17 Digoxin [Lanoxin -] 0.125 mg PO Q48H 07/09/17 Divalproex [Depakote -] 250 mg PO BID 07/09/17 Donepezil HCl 10 mg PO HS 07/09/17 Escitalopram Oxalate [Lexapro -] 20 mg PO DAILY 07/09/17 Folic Acid 1 mg PO DAILY 07/09/17 Furosemide 20 mg PO DAILY 07/09/17 Isosorbide Mononitrate [Isosorbide Mononitrate ER] 30 mg PO DAILY 07/09/17 Loratadine 10 mg PO DAILY 07/09/17 Melatonin 2 mg PO HS 07/09/17 Metoprolol Tartrate 25 mg PO BID 07/09/17 Multivitamin [Poly-Vitamin] 1 each PO DAILY 07/09/17 Omeprazole 20 mg PO DAILY 07/09/17 Polyethylene Glycol 3350 [Clearlax] 17 gm PO DAILY 07/09/17 Rivaroxaban [Xarelto -] 20 mg PO 1800 07/09/17 Zinc Sulfate 220 mg PO DAILY 07/09/17 Acetaminophen 650 mg PO Q8H PRN 07/10/17 Albuterol 2.5/Ipratropium 0.5 [Duoneb -] 1 amp NEB Q4H PRN #1 amp 07/15/17 Lisinopril [Prinivil] 5 mg PO DAILY #30 tablet 07/15/17 Family Disease History - Family Disease History Family History: Unable to Obtain Review of Systems - Review of Systems Constitutional: denies: Chills, Fever Cardiovascular: reports: Palpitations, Shortness of Breath. denies: Chest Pain Respiratory: reports: SOB. denies: Cough, Hemoptysis, Orthopnea, PND Gastrointestinal: denies: Abdominal Pain, Constipation, Diarrhea, Melena, Nausea , Rectal Bleeding, Vomiting Musculoskeletal: denies: Joint Pain Neurological: denies: Dizziness, Headache, Seizure, Syncope Vital Signs: Vital Signs Temperature 99.5 F 11/07/18 05:00 Pulse Rate 108 H 11/07/18 05:00 Respiratory Rate 22 H 11/07/18 05:00 Blood Pressure 120/81 11/07/18 05:00 O2 Sat by Pulse Oximetry (%) 96 11/07/18 11:32 HENT: Yes: Atraumatic Neck: Yes: Supple Respiratory: Yes: Diminished Gastrointestinal: Yes: Normal Bowel Sounds, Soft. No: Tenderness Cardiovascular: Yes: Tachycardia, Pulse Irregular JVD: No PMI: Non-Displaced Heart Sounds: Yes: S1, S2. No: Gallop Murmur: Yes: Systolic Murmur, Grade 1 Edema: No - Other Data Labs, Other Data: CBC, BMP 11/07/18 05:30 11/07/18 05:30 INR, PTT INR 1.26 (0.83-1.09) H 11/06/18 09:38 Laboratory Results - last 24 hr 11/06/18 11/06/18 11/07/18 09:38 13:09 05:30 WBC 9.5 RBC 3.15 L Hgb 10.0 L Hct 30.2 L D MCV 95.8 MCH 31.7 MCHC 33.1 RDW 15.0 Plt Count 227 MPV 8.5 Absolute Neuts (auto) 7.9 Neutrophils % 83.3 H Lymphocytes % 9.5 D Monocytes % 5.8 Eosinophils % 1.1 D Basophils % 0.3 Nucleated RBC % 0 PTT (Actin FS) Sodium 139 Potassium 4.1 Chloride 104 Carbon Dioxide 28 Anion Gap 7 L BUN 18 Creatinine 0.9 Est GFR (CKD-EPI)AfAm 70.48 Est GFR (CKD-EPI)NonAf 60.81 Random Glucose 129 H Lactic Acid 4.1 H* Calcium 9.0 Phosphorus Magnesium Total Bilirubin 0.7 AST 32 ALT 29 Alkaline Phosphatase 121 H Total Protein 6.9 Albumin 3.2 L TSH Digoxin 0.54 L 11/07/18 11/07/18 11/07/18 05:30 05:30 05:30 WBC RBC Hgb Hct MCV MCH MCHC RDW Plt Count MPV Absolute Neuts (auto) Neutrophils % Lymphocytes % Monocytes % Eosinophils % Basophils % Nucleated RBC % PTT (Actin FS) 34.5 Sodium 140 Potassium 3.9 Chloride 108 H Carbon Dioxide 26 Anion Gap 7 L BUN 21 H Creatinine 0.7 Est GFR (CKD-EPI)AfAm 95.51 Est GFR (CKD-EPI)NonAf 82.41 Random Glucose 73 L Lactic Acid 1.2 Calcium 8.5 Phosphorus 2.9 Magnesium 1.9 Total Bilirubin 1.2 H AST 37 ALT 36 Alkaline Phosphatase 90 Total Protein 5.6 L Albumin 2.5 L TSH 0.65 Digoxin AF with RVR Imaging - Results Chest X-ray: Report Reviewed Cat Scan: Report Reviewed (Abdominal/pevis CT) EKG: Report Reviewed Problem List - Problems (1) Respiratory distress Code(s): R06.03 - ACUTE RESPIRATORY DISTRESS (2) Severe sepsis Code(s): A41.9 - SEPSIS, UNSPECIFIED ORGANISM; R65.20 - SEVERE SEPSIS WITHOUT SEPTIC SHOCK (3) UTI (urinary tract infection) Code(s): N39.0 - URINARY TRACT INFECTION, SITE NOT SPECIFIED Qualifiers: Urinary tract infection type: site unspecified Hematuria presence: without hematuria Qualified Code(s): N39.0 - Urinary tract infection, site not specified (4) Acute respiratory failure with hypoxia Code(s): J96.01 - ACUTE RESPIRATORY FAILURE WITH HYPOXIA (5) Atrial fibrillation Code(s): I48.91 - UNSPECIFIED ATRIAL FIBRILLATION Qualifiers: Atrial fibrillation type: persistent Qualified Code(s): I48.1 - Persistent atrial fibrillation (6) Coronary artery disease Code(s): I25.10 - ATHSCL HEART DISEASE OF [place] CORONARY ARTERY W/O ANG PCTRS Qualifiers: Coronary Disease-Associated Artery/Lesion type: [place] artery [place] vs. transplanted heart: [place] heart Associated angina: without angina Qualified Code(s): I25.10 - Atherosclerotic heart disease of [place] coronary artery without angina pectoris (7) Demand ischemia Code(s): I24.8 - OTHER FORMS OF ACUTE ISCHEMIC HEART DISEASE (8) Dementia Code(s): F03.90 - UNSPECIFIED DEMENTIA WITHOUT BEHAVIORAL DISTURBANCE Qualifiers: Dementia type: unspecified type Dementia behavioral disturbance: without behavioral disturbance Qualified Code(s): F03.90 - Unspecified dementia without behavioral disturbance (9) Diastolic dysfunction Code(s): I51.9 - HEART DISEASE, UNSPECIFIED (10) Hyperlipidemia Code(s): E78.5 - HYPERLIPIDEMIA, UNSPECIFIED Qualifiers: Hyperlipidemia type: pure hypercholesterolemia Qualified Code(s): E78.00 - Pure hypercholesterolemia, unspecified; E78.0 - Pure hypercholesterolemia (11) Lactic acidosis Code(s): E87.2 - ACIDOSIS Assessment/Plan 1. AF with RVR 2. CAD, angina 3. HTN 4. Hypercholesterolemia 5. Organic brain/dementia 6. Sepsis likely source 7. Acute on chronic LV failure PLAN: 1. Continue Xarelto 2. Uptitrate Metoprolol for rate control 3. Cardizem IV for added rate control 4. Echocardiography to assess LV/RV and valvular function 5. Empiric antibiotic coverage. Further plans are to follow Jerome Alfaro MD
[2018-11-07] MEDS: clonazePAM 0.5 MG TABLET PO SCH ×2 (13:06→21:10)
[2018-11-07] MEDS: SODIUM CHLORIDE 1,000 ML IV SCH ×2 (13:07→14:30)
[2018-11-07] MEDS ORDERED: dilTIAZem HCL 25 MG/5 ML - 5 ML VIAL IVPUSH ONE (13:30)
[2018-11-07] MEDS ORDERED: METOPROLOL TARTRATE 5 MG/5 ML VIAL ONE (13:30)
[2018-11-07] MEDS: ACETAMINOPHEN 325 MG TABLET (FP) PO PRN ×2 (13:52→22:06)
[2018-11-07] MEDS ORDERED: METOPROLOL TARTRATE 5 MG/5 ML VIAL IVPUSH ONE (14:45)
[2018-11-07] MEDS ORDERED: PT OWN MED DRAWER 7, Y5N ONE (15:02)
--- NOTE | 2018-11-07 15:32 | ECHO ---
Version: 1 Name: TORIN CESAR Exam: Adult Echocardiogram Study Date: 11/07/2018, 2:02 PM Age: 78 Years MMode/2D Measurements & Calculations IVSd: 0.79 cm LVIDs: 3.2 cm LVIDd: 4.2 cm LVPWd: 0.76 cm LVOT diam: 2.09 cm Ao root diam: 3.1 cm LA dimension: 3.9 cm Doppler Measurements & Calculations Lat Peak E' [place]: 10.9 cm/sec Med Peak E[place]: 6.3 cm/sec Ao max P.0 mmHg Ao mean P.7 mmHg Ao V2 max: 165.8 cm/sec AI P1/2t: 621.5 msec TR max ventura: 267.7 cm/sec TR max P.8 mmHg Left Ventricle The left ventricular size, thickness and function are normal. Ejection Fraction = 65. Right Ventricle The right ventricle is normal in size and function. Atria Normal left and right atrial size and function. Mitral Valve The mitral valve is normal. Tricuspid Valve The tricuspid valve is normal. There is mild tricuspid regurgitation. Aortic Valve There is moderate aortic sclerosis.;. Trace aortic regurgitation. Pulmonic Valve The prosthetic pulmonic valve is not well visualized. Great Vessels The aortic root is normal size. Normal aortic arch, descending and ascending aorta. Pericardium/Pleura There is no pericardial effusion. There is no pleural effusion. Summary Statements Leandro Escamilla 11/07/2018, 2:32 PM Ordering Physician: Jerome Alfaro Referring Physician: ROXI LIANG Performed By: Cassandra Dietz
[2018-11-07] MEDS ORDERED: RIVAROXABAN 15 MG TABLET PO SCH (18:00)
[2018-11-07] MEDS ORDERED: METOPROLOL TARTRATE 5 MG/5 ML VIAL IVPUSH PRN (21:00)
[2018-11-07] MEDS: DIVALPROEX SODIUM 250 MG TABLET E.C. PO SCH (21:10)
[2018-11-07] MEDS: METOPROLOL TARTRATE 50 MG TABLET (FP) PO SCH (21:10)
[2018-11-07] MEDS ORDERED: METOPROLOL TARTRATE 25 MG TABLET (FP) PO SCH (22:00)
[2018-11-08] MEDS: clonazePAM 0.5 MG TABLET PO SCH ×4 (05:26→22:08)
[2018-11-08 07:30] LABS: BASO % 0.3 % (0-2.0); EOS % 3.3 % (0-4.5); HEMATOCRIT 26.7 % (32.4-45.2); HEMOGLOBIN 8.9 GM/dL (10.7-15.3); LYMPH % 7.6 % (8-40); MCH 31.8 pg (25.7-33.7); MCHC 33.3 g/dl (32.0-36.0); MEAN CELL VOLUME 95.5 fl (80-96); MEAN PLT VOLUME 8.7 fl (7.5-11.1); MONO % 6.9 % (3.8-10.2); NEUT % 81.9 % (42.8-82.8); PLATELET COUNT 195 K/MM3 (134-434); RBC 2.79 M/mm3 (3.60-5.2); RDW 15.2 % (11.6-15.6)
[2018-11-08] MEDS: ALBUTEROL SO4 2.5/IPRATROPIUM 0.5 INH SOL 3 ML VIAL.NEB. NEB PRN (07:52)
[2018-11-08 08:00] LABS: ALBUMIN 2.3 g/dl (3.4-5.0); BILIRUBIN,TOTAL 0.8 mg/dL (0.2-1); CALCIUM 8.3 mg/dL (8.5-10.1); CREATININE 0.6 mg/dL (0.55-1.3); POTASSIUM 3.6 mmol/L (3.5-5.1); TOT PROT 5.4 g/dl (6.4-8.2)
[2018-11-08] MEDS ORDERED: DEXTROSE 5%-WATER - 50 ML IVPB ONE (10:16)
[2018-11-08] MEDS ORDERED: cefTRIAXone SODIUM 1 GM VIAL ONE (10:16)
[2018-11-08] MEDS: CEFTRIAXONE 1 GM in DEXTROSE 5%-WATER - 50 ML IVPB SCH (10:19)
[2018-11-08] MEDS: METOPROLOL TARTRATE 50 MG TABLET (FP) PO SCH ×2 (10:19→22:08)
[2018-11-08] MEDS: DIVALPROEX SODIUM 250 MG TABLET E.C. PO SCH ×2 (10:19→22:08)
--- NOTE | 2018-11-08 11:21 | PN ---
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 (short form) - Note 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: events noted awake and alert off BIPAP resistant to care per RN Vital Signs - 24 hr 11/07/18 11/07/18 11/07/18 11:32 13:45 14:00 Temperature 101.1 F H Pulse Rate 144 H 144 H Respiratory 20 Rate Blood Pressure 141/82 141/82 O2 Sat by Pulse 96 Oximetry (%) 11/07/18 11/07/18 11/07/18 15:56 17:00 21:00 Temperature 100.0 F H Pulse Rate 99 H Respiratory 20 Rate Blood Pressure 131/65 O2 Sat by Pulse 94 L 96 Oximetry (%) 11/07/18 11/07/18 11/07/18 21:20 21:45 23:15 Temperature 101.5 F H 101.1 F H Pulse Rate 112 H Respiratory 22 H Rate Blood Pressure 150/85 O2 Sat by Pulse 95 Oximetry (%) 11/08/18 11/08/18 11/08/18 01:14 05:00 07:51 Temperature 99.8 F H 100.5 F H Pulse Rate 92 H 98 H Respiratory 20 20 Rate Blood Pressure 142/81 142/94 O2 Sat by Pulse 94 L Oximetry (%) 11/08/18 09:00 Temperature Pulse Rate Respiratory 20 Rate Blood Pressure O2 Sat by Pulse 96 Oximetry (%) Current Medications Generic Name Dose Route Start Last Admin Trade Name Freq PRN Reason Stop Dose Admin Acetaminophen 650 mg 11/07/18 11:50 11/07/18 22:06 Tylenol - PO 650 mg Q8H PRN Administration PAIN OR FEVER Albuterol/Ipratropium 1 amp 11/07/18 11:50 11/08/18 07:52 Duoneb - NEB 1 amp Q4H PRN Administration ASTHMA Clonazepam 0.5 mg 11/07/18 14:00 11/08/18 05:26 Klonopin - PO 0.5 mg TID CLAYTON Administration Divalproex Sodium 250 mg 11/07/18 22:00 11/08/18 10:19 Depakote - PO 250 mg BID CLAYTON Administration Ceftriaxone Sodium 1 gm/ 50 mls @ 100 mls/hr 11/07/18 11:00 11/08/18 10:19 Dextrose IVPB 100 mls/hr DAILY CLAYTON Administration Metoprolol Tartrate 50 mg 11/07/18 22:00 11/08/18 10:19 Lopressor - PO 50 mg BID CLAYTON Administration Metoprolol Tartrate 5 mg 11/07/18 21:00 Lopressor Injection - IVPUSH Q6H PRN HR ABOVE 130 Rivaroxaban 15 mg 11/07/18 18:00 11/07/18 17:07 Xarelto PO 15 mg DAILY@1800 CLAYTON Administration Laboratory Results - last 24 hr 11/08/18 11/08/18 05:30 05:30 WBC 9.0 RBC 2.79 L Hgb 8.9 L Hct 26.7 L MCV 95.5 MCH 31.8 MCHC 33.3 RDW 15.2 Plt Count 195 MPV 8.7 Absolute Neuts (auto) 7.4 Neutrophils % 81.9 Lymphocytes % 7.6 L Monocytes % 6.9 Eosinophils % 3.3 D Basophils % 0.3 Nucleated RBC % 0 Sodium 143 Potassium 3.6 Chloride 112 H Carbon Dioxide 24 Anion Gap 7 L BUN 20 H Creatinine 0.6 Est GFR (CKD-EPI)AfAm 100.48 Est GFR (CKD-EPI)NonAf 86.69 Random Glucose 99 Calcium 8.3 L Total Bilirubin 0.8 AST 31 ALT 29 Alkaline Phosphatase 84 Total Protein 5.4 L Albumin 2.3 L S1 s2 irregular Lungs decreased, ronchi+ Abd- soft, NT no edema PLAN family prefers- comfort care dc iv fluids abx-->UTI- urine cultures noted chronic pelvic fracture on ct scan i/d consult as well as cardiology noted prognosis poor pt is dnr/ DNI swallow eval urine culture positive Problem List - Problems (1) Pelvic fracture Code(s): S32.9XXA - FRACTURE OF UNSP PARTS OF LUMBOSACRAL SPINE AND PELVIS, INIT (2) Respiratory distress Code(s): R06.03 - ACUTE RESPIRATORY DISTRESS (3) Severe sepsis Code(s): A41.9 - SEPSIS, UNSPECIFIED ORGANISM; R65.20 - SEVERE SEPSIS WITHOUT SEPTIC SHOCK (4) UTI (urinary tract infection) Code(s): N39.0 - URINARY TRACT INFECTION, SITE NOT SPECIFIED Qualifiers: Urinary tract infection type: site unspecified Hematuria presence: without hematuria Qualified Code(s): N39.0 - Urinary tract infection, site not specified
--- NOTE | 2018-11-08 11:29 | CONSULT ---
Admitting History and Physical - Primary Care Physician PCP: Lucy Dooley - Admission History of Present Illness: Pt is a 71yo F with PMH of Afib, CAD, CHF, HTN, HLD, Breast Ca s/p L mastectomy , Alzheimer's Dementia sent from [facility] for fever and vomiting, persistent coughs , febrile. Much improved, now on NC, off BIPAP. Pt [facility] soft diet[facility]thin liquid at [facility]. Seen by me in June 2017-Coughing, with and without PO intake Acute Hypoxic Respiratory Failure improving Pneumonia clinically improving Sepsis MBS- Penetration without aspiration.Impaired mastication. Rec: Chopped/thin liquids. 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 Cardiovascular: Yes: AFIB, CAD, CHF, HTN, Hyperlipdemia Pulmonary: Yes: COPD Gastrointestinal: Yes: Other (Appendectomy at age 4 and, reexploration, laparotomy 5 years ago) Hepatobiliary: Yes: Cholecystitis (son gives h/o cholecystitits in past) - Past Surgical History Past Surgical History: Yes: Mastectomy (left sided) - Smoking History Smoking history: Unknown if ever smoked Have you smoked in the past 12 months: No - Alcohol/Substance Use Hx Alcohol Use: No - Social History ADL: Support Services History - Admission Reason For Visit: UTI, RESPIRATORY DISTRESS, SEPSIS - Diagnostics X-ray: Report Reviewed - General Mental Status: Awake and Alert, Able to Follow Commands, Confused Attention: Distractible, Mild Impairment Ability to Follow Directions: Good Head/Neck Control: Fair - Hearing Hearing: Normal Hearing Aide: No Speech Evaluation - Communication Primary Language: ITALIAN Communication: Yes: Simple Responses Oral Expression Ability: Yes: No Impairment - Speech Production Able to Make Needs Known: Yes: WNL Intelligibility: Yes: WNL - Speech Characteristics Voice Loudness: Normal Voice Pitch: Yes: Normal Voice Phonatory-based Quality: Yes: Normal Speech Pattern: Normal Speech Clarity: < 100% Nasal Resonance: Normal Articulation: Yes: Precise - Language/Auditory Comprehension Follows: Yes: 1 Stage Simple Commands - Language/Verbal Expression Able to Communicate Wants and Needs: Yes: WNL - Swallow Evaluation/Bedside Assessment Current Nutritional Intake: Dysphagia Pureed, [place] Textured Liquids Oral Secretions: Yes: WFL (No secretions. Audible wheeze.) Dentition: Yes: Missing Teeth Facial Symmetry at Rest: Facial Droop Left Facial Symmetry on Retraction: Symmetrical Against Resistance Opening: Weak Against Resistance Closing: Weak Pucker Lips: Weak Smile: Weak Lingual Movement: Symmetric Lingual Speed of Movement: Normal Lingual Movement Strgth Against Opposition: Normal Laryngeal Movement: Labored,delay initiation Bolus Size: Small Labial Seal: WFL A-P Transit: WFL Pocketing: None Timing of Swallow: Delayed Coughing/Throat Clear: No Change in Voice: No Recommendations - Speech Evaluation, Impression/Plan Impression: Swallow onset is mildly delayed but fairly brisk once triggered. Significant improvement since admission reported.Mild expiratory wheeze. - Disposition Discharge to: To be Determined - Dysphagia Impressions/Plan Dysphagia Impressions: Mild Impairment, Risk of Aspiration *Silent aspiration: cannot be R/O at bedside Dysphagia Treatment Plan: Small Bites, Chin Tuck/Down, Clear Pocket Food, Trial Feedings, Safe Rate, 1/2 tsp. at a time, Elevate HOB during feed - Recommendations Diet Consistency: Dysphagia Pureed Medication Administration: Crushed with applesauce Liquids: Congers Thick Supplement: Magic Cup, Ensure Pudding
--- NOTE | 2018-11-08 11:53 | PN ---
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, Physician History of Present Illness: Febrile, rate-controlled afib. - Current Medication List Current Medications: Active Medications Acetaminophen (Tylenol -) 650 mg PO Q8H PRN PRN Reason: PAIN OR FEVER Last Admin: 11/07/18 22:06 Dose: 650 mg Albuterol/Ipratropium (Duoneb -) 1 amp NEB Q4H PRN PRN Reason: ASTHMA Last Admin: 11/08/18 07:52 Dose: 1 amp Clonazepam (Klonopin -) 0.5 mg PO TID [facility] Last Admin: 11/08/18 05:26 Dose: 0.5 mg Divalproex Sodium (Depakote -) 250 mg PO BID [facility] Last Admin: 11/08/18 10:19 Dose: 250 mg Ceftriaxone Sodium 1 gm/ (Dextrose) 50 mls @ 100 mls/hr IVPB DAILY [facility] Last Admin: 11/08/18 10:19 Dose: 100 mls/hr Metoprolol Tartrate (Lopressor -) 50 mg PO BID [facility] Last Admin: 11/08/18 10:19 Dose: 50 mg Metoprolol Tartrate (Lopressor Injection -) 5 mg IVPUSH Q6H PRN PRN Reason: HR ABOVE 130 Rivaroxaban (Xarelto) 15 mg PO DAILY@1800 [facility] Last Admin: 11/07/18 17:07 Dose: 15 mg - Objective Vital Signs: Vital Signs Temperature 100.5 F H 11/08/18 05:00 Pulse Rate 98 H 11/08/18 05:00 Respiratory Rate 20 11/08/18 09:00 Blood Pressure 142/94 11/08/18 05:00 O2 Sat by Pulse Oximetry (%) 96 11/08/18 09:00 Constitutional: Yes: No Distress, Calm Neck: Yes: Supple Cardiovascular: Yes: Pulse Irregular Respiratory: Yes: Regular, Diminished Gastrointestinal: Yes: Normal Bowel Sounds, Soft Edema: No Labs: CBC, BMP 11/08/18 05:30 11/08/18 05:30 INR, PTT INR 1.26 (0.83-1.09) H 11/06/18 09:38 - ....Imaging EKG: Report Reviewed (Tele: Rate-controlled afib) Problem List - Problems (1) UTI (urinary tract infection) Code(s): N39.0 - URINARY TRACT INFECTION, SITE NOT SPECIFIED Qualifiers: Urinary tract infection type: site unspecified Hematuria presence: without hematuria Qualified Code(s): N39.0 - Urinary tract infection, site not specified (2) Anticoagulation adequate with anticoagulant therapy Code(s): Z79.01 - ENTRY CLERK (CURRENT) USE OF ANTICOAGULANTS (3) Atrial fibrillation Code(s): I48.91 - UNSPECIFIED ATRIAL FIBRILLATION Qualifiers: Atrial fibrillation type: persistent Qualified Code(s): I48.1 - Persistent atrial fibrillation (4) Coronary artery disease Code(s): I25.10 - ATHSCL HEART DISEASE OF [place] CORONARY ARTERY W/O ANG PCTRS Qualifiers: Coronary Disease-Associated Artery/Lesion type: [place] artery [place] vs. transplanted heart: [place] heart Associated angina: without angina Qualified Code(s): I25.10 - Atherosclerotic heart disease of [place] coronary artery without angina pectoris (5) Dementia Code(s): F03.90 - UNSPECIFIED DEMENTIA WITHOUT BEHAVIORAL DISTURBANCE Qualifiers: Dementia type: unspecified type Dementia behavioral disturbance: without behavioral disturbance Qualified Code(s): F03.90 - Unspecified dementia without behavioral disturbance (6) Diastolic dysfunction Code(s): I51.9 - HEART DISEASE, UNSPECIFIED (7) Hyperlipidemia Code(s): E78.5 - HYPERLIPIDEMIA, UNSPECIFIED Qualifiers: Hyperlipidemia type: pure hypercholesterolemia Qualified Code(s): E78.00 - Pure hypercholesterolemia, unspecified; E78.0 - Pure hypercholesterolemia Assessment/Plan 11/07/2018 Echocardiography: Normal LV and size and fxn 1. Persistent AF with improved rate-control 2. CAD, angina 3. HTN 4. Hypercholesterolemia 5. Organic brain/dementia 6. Sepsis likely source - e. coli UTI 7. LV diastolic dysfunction PLAN: 1. Continue Xarelto 15 qd 2. Uptitrated Metoprolol 50 bid for rate control 3. Cardizem IV for added rate control 4. Complete empiric antibiotic coverage per C&S 5. D/c telemetry
--- NOTE | 2018-11-08 13:40 | PN ---
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, Physician History of Present Illness: looking more stable more awake and alert - Current Medication List Current Medications: Active Medications Acetaminophen (Tylenol -) 650 mg PO Q8H PRN PRN Reason: PAIN OR FEVER Last Admin: 11/07/18 22:06 Dose: 650 mg Albuterol/Ipratropium (Duoneb -) 1 amp NEB Q4H PRN PRN Reason: ASTHMA Last Admin: 11/08/18 07:52 Dose: 1 amp Clonazepam (Klonopin -) 0.5 mg PO TID [facility] Last Admin: 11/08/18 13:21 Dose: Not Given Divalproex Sodium (Depakote -) 250 mg PO BID [facility] Last Admin: 11/08/18 10:19 Dose: 250 mg Ceftriaxone Sodium 1 gm/ (Dextrose) 50 mls @ 100 mls/hr IVPB DAILY [facility] Last Admin: 11/08/18 10:19 Dose: 100 mls/hr Lisinopril (Prinivil) 5 mg PO DAILY [facility] Metoprolol Tartrate (Lopressor -) 50 mg PO BID [facility] Last Admin: 11/08/18 10:19 Dose: 50 mg Metoprolol Tartrate (Lopressor Injection -) 5 mg IVPUSH Q6H PRN PRN Reason: HR ABOVE 130 Rivaroxaban (Xarelto) 20 mg PO DAILY@1800 [facility] - Objective Vital Signs: Vital Signs Temperature 100.5 F H 11/08/18 05:00 Pulse Rate 98 H 11/08/18 05:00 Respiratory Rate 20 11/08/18 09:00 Blood Pressure 142/94 11/08/18 05:00 O2 Sat by Pulse Oximetry (%) 96 11/08/18 09:00 Constitutional: Yes: No Distress Cardiovascular: Yes: S1, S2 Respiratory: Yes: Regular, CTA Bilaterally Gastrointestinal: Yes: Normal Bowel Sounds, Soft Musculoskeletal: Yes: WNL Extremities: Yes: WNL Neurological: Yes: Alert, Other Labs: CBC, BMP 11/08/18 05:30 11/08/18 05:30 INR, PTT INR 1.26 (0.83-1.09) H 11/06/18 09:38 Assessment/Plan Problem List - Problems (1) Pelvic fracture Code(s): S32.9XXA - FRACTURE OF UNSP PARTS OF LUMBOSACRAL SPINE AND PELVIS, INIT (2) Respiratory distress Code(s): R06.03 - ACUTE RESPIRATORY DISTRESS (3) Severe sepsis Code(s): A41.9 - SEPSIS, UNSPECIFIED ORGANISM; R65.20 - SEVERE SEPSIS WITHOUT SEPTIC SHOCK (4) UTI (urinary tract infection) Code(s): N39.0 - URINARY TRACT INFECTION, SITE NOT SPECIFIED Qualifiers: Urinary tract infection type: site unspecified Hematuria presence: without hematuria Qualified Code(s): N39.0 - Urinary tract infection, site not specified plan continue current abx nutrition rest as per the team stable
[2018-11-08] MEDS: RIVAROXABAN 20 MG TABLET PO SCH (17:48)
[2018-11-08] MEDS ORDERED: PT OWN MED DRAWER 7, Y5N ONE (21:21)
[2018-11-09] MEDS: clonazePAM 0.5 MG TABLET PO SCH ×3 (06:01→21:29)
[2018-11-09] MEDS ORDERED: cefTRIAXone SODIUM 1 GM VIAL ONE (09:34)
[2018-11-09] MEDS ORDERED: DEXTROSE 5%-WATER - 50 ML IVPB ONE (09:35)
--- NOTE | 2018-11-09 09:39 | PN ---
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, Physician History of Present Illness: Temperature curve improving, rate-controlled afib. - Current Medication List Current Medications: Active Medications Acetaminophen (Tylenol -) 650 mg PO Q8H PRN PRN Reason: PAIN OR FEVER Last Admin: 11/07/18 22:06 Dose: 650 mg Albuterol/Ipratropium (Duoneb -) 1 amp NEB Q4H PRN PRN Reason: ASTHMA Last Admin: 11/08/18 07:52 Dose: 1 amp Clonazepam (Klonopin -) 0.5 mg PO TID [facility] Last Admin: 11/09/18 06:01 Dose: 0.5 mg Divalproex Sodium (Depakote -) 250 mg PO BID [facility] Last Admin: 11/08/18 22:08 Dose: 250 mg Ceftriaxone Sodium 1 gm/ (Dextrose) 50 mls @ 100 mls/hr IVPB DAILY [facility] Last Admin: 11/08/18 10:19 Dose: 100 mls/hr Lisinopril (Prinivil) 5 mg PO DAILY [facility] Metoprolol Tartrate (Lopressor -) 50 mg PO BID [facility] Last Admin: 11/08/18 22:08 Dose: 50 mg Metoprolol Tartrate (Lopressor Injection -) 5 mg IVPUSH Q6H PRN PRN Reason: HR ABOVE 130 Rivaroxaban (Xarelto) 20 mg PO DAILY@1800 [facility] Last Admin: 11/08/18 17:48 Dose: 20 mg - Objective Vital Signs: Vital Signs Temperature 100.5 F H 11/09/18 06:00 Pulse Rate 116 H 11/09/18 06:00 Respiratory Rate 20 11/09/18 07:27 Blood Pressure 141/57 L 11/09/18 06:00 O2 Sat by Pulse Oximetry (%) 96 11/09/18 07:27 Constitutional: Yes: No Distress, Calm, Thin Neck: Yes: Supple Cardiovascular: Yes: Pulse Irregular Respiratory: Yes: Regular, Diminished Gastrointestinal: Yes: Soft, Hypoactive Bowel Sounds Edema: No Labs: CBC, BMP 11/08/18 05:30 11/08/18 05:30 INR, PTT INR 1.26 (0.83-1.09) H 11/06/18 09:38 - ....Imaging EKG: Report Reviewed (Tele: Afib) Problem List - Problems (1) UTI (urinary tract infection) Code(s): N39.0 - URINARY TRACT INFECTION, SITE NOT SPECIFIED Qualifiers: Urinary tract infection type: site unspecified Hematuria presence: without hematuria Qualified Code(s): N39.0 - Urinary tract infection, site not specified (2) Anticoagulation adequate with anticoagulant therapy Code(s): Z79.01 - PHARMACY INTERN (CURRENT) USE OF ANTICOAGULANTS (3) Atrial fibrillation Code(s): I48.91 - UNSPECIFIED ATRIAL FIBRILLATION Qualifiers: Atrial fibrillation type: persistent Qualified Code(s): I48.1 - Persistent atrial fibrillation (4) Coronary artery disease Code(s): I25.10 - ATHSCL HEART DISEASE OF [place] CORONARY ARTERY W/O ANG PCTRS Qualifiers: Coronary Disease-Associated Artery/Lesion type: [place] artery [place] vs. transplanted heart: [place] heart Associated angina: without angina Qualified Code(s): I25.10 - Atherosclerotic heart disease of [place] coronary artery without angina pectoris (5) Dementia Code(s): F03.90 - UNSPECIFIED DEMENTIA WITHOUT BEHAVIORAL DISTURBANCE Qualifiers: Dementia type: unspecified type Dementia behavioral disturbance: without behavioral disturbance Qualified Code(s): F03.90 - Unspecified dementia without behavioral disturbance (6) Diastolic dysfunction Code(s): I51.9 - HEART DISEASE, UNSPECIFIED (7) Hyperlipidemia Code(s): E78.5 - HYPERLIPIDEMIA, UNSPECIFIED Qualifiers: Hyperlipidemia type: pure hypercholesterolemia Qualified Code(s): E78.00 - Pure hypercholesterolemia, unspecified; E78.0 - Pure hypercholesterolemia Assessment/Plan 11/07/2018 Echocardiography: Normal LV and size and fxn 1. Persistent AF with improved rate-control 2. CAD, angina 3. HTN 4. Hypercholesterolemia 5. Organic brain/dementia 6. Sepsis likely source - e. coli UTI 7. LV diastolic dysfunction PLAN: 1. Continue Xarelto 20 qd 2. Continue Metoprolol 50 bid for rate control, restarted lisinopril 5 qd 3. Cardizem IV for added rate control 4. Complete empiric antibiotic coverage per C&S 5. D/c telemetry
[2018-11-09] MEDS: DIVALPROEX SODIUM 250 MG TABLET E.C. PO SCH ×2 (09:49→22:26)
[2018-11-09] MEDS: METOPROLOL TARTRATE 50 MG TABLET (FP) PO SCH ×2 (09:49→21:29)
[2018-11-09] MEDS: CEFTRIAXONE 1 GM in DEXTROSE 5%-WATER - 50 ML IVPB SCH (09:50)
[2018-11-09] MEDS ORDERED: LISINOPRIL 5 MG TABLET (FP) PO SCH (10:00)
--- NOTE | 2018-11-09 11:02 | PN ---
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, DIRECTOR OF SLOT OPERATIONS - Note 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: Sleepy with limited PO acceptance in the morning. Per report, pt becomes more alert, accepting more by mouth later in the day. Encourage supplements, which are more dense calorically such as Magic cup and 2 Tin Selected Entries 11/09/18 11/09/18 11/09/18 01:24 06:00 10:00 Breakfast Temperature 98.6 F 100.5 F H 98.7 F 11/09/18 10:52 Breakfast 25% Temperature Laboratory Tests 11/08/18 05:30 WBC 9.0 HN.
--- NOTE | 2018-11-09 11:23 | PN ---
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 (short form) - Note 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: events noted awake and alert off BIPAP resistant to care per RN low grade fever Vital Signs - 24 hr 11/08/18 11/08/18 11/08/18 14:23 16:03 17:00 Temperature 97.3 F L 100.1 F H Pulse Rate 106 H 119 H Respiratory 20 20 Rate Blood Pressure 159/98 175/95 H O2 Sat by Pulse 94 L Oximetry (%) 11/08/18 11/09/18 11/09/18 22:00 01:24 06:00 Temperature 99 F 98.6 F 100.5 F H Pulse Rate 115 H 108 H 116 H Respiratory 20 20 20 Rate Blood Pressure 151/109 H 148/98 141/57 L O2 Sat by Pulse 94 L Oximetry (%) 11/09/18 11/09/18 07:27 10:00 Temperature 98.7 F Pulse Rate 114 H Respiratory 20 20 Rate Blood Pressure 147/69 O2 Sat by Pulse 96 Oximetry (%) Current Medications Generic Name Dose Route Start Last Admin Trade Name Freq PRN Reason Stop Dose Admin Acetaminophen 650 mg 11/07/18 11:50 11/07/18 22:06 Tylenol - PO 650 mg Q8H PRN Administration PAIN OR FEVER Albuterol/Ipratropium 1 amp 11/07/18 11:50 11/08/18 07:52 Duoneb - NEB 1 amp Q4H PRN Administration ASTHMA Clonazepam 0.5 mg 11/07/18 14:00 11/09/18 06:01 Klonopin - PO 0.5 mg TID [facility] Administration Divalproex Sodium 250 mg 11/07/18 22:00 11/09/18 09:49 Depakote - PO 250 mg BID [facility] Administration Ceftriaxone Sodium 1 gm/ 50 mls @ 100 mls/hr 11/07/18 11:00 11/09/18 09:50 Dextrose IVPB 100 mls/hr DAILY [facility] Administration Lisinopril 5 mg 11/09/18 10:00 11/09/18 09:49 Prinivil PO 5 mg DAILY [facility] Administration Metoprolol Tartrate 50 mg 11/07/18 22:00 11/09/18 09:49 Lopressor - PO 50 mg BID [facility] Administration Metoprolol Tartrate 5 mg 11/07/18 21:00 Lopressor Injection - IVPUSH Q6H PRN HR ABOVE 130 Rivaroxaban 20 mg 11/08/18 12:09 11/08/18 17:48 Xarelto PO 20 mg DAILY@1800 [facility] Administration S1 s2 irregular Lungs decreased, ronchi+ Abd- soft, NT no edema PLAN family prefers- comfort care dc iv fluids abx-->UTI- urine cultures noted increase Lisinopril for better BP control chronic pelvic fracture on ct scan i/d consult as well as cardiology noted prognosis poor pt is dnr/ DNI swallow eval urine culture positive dc planning Problem List - Problems (1) Pelvic fracture Code(s): S32.9XXA - FRACTURE OF UNSP PARTS OF LUMBOSACRAL SPINE AND PELVIS, INIT (2) Respiratory distress Code(s): R06.03 - ACUTE RESPIRATORY DISTRESS (3) Severe sepsis Code(s): A41.9 - SEPSIS, UNSPECIFIED ORGANISM; R65.20 - SEVERE SEPSIS WITHOUT SEPTIC SHOCK (4) UTI (urinary tract infection) Code(s): N39.0 - URINARY TRACT INFECTION, SITE NOT SPECIFIED Qualifiers: Urinary tract infection type: site unspecified Hematuria presence: without hematuria Qualified Code(s): N39.0 - Urinary tract infection, site not specified
--- NOTE | 2018-11-09 11:43 | PN ---
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, Physician History of Present Illness: patient stable no new issues still with some confusion - Current Medication List Current Medications: Active Medications Acetaminophen (Tylenol -) 650 mg PO Q8H PRN PRN Reason: PAIN OR FEVER Last Admin: 11/07/18 22:06 Dose: 650 mg Albuterol/Ipratropium (Duoneb -) 1 amp NEB Q4H PRN PRN Reason: ASTHMA Last Admin: 11/08/18 07:52 Dose: 1 amp Clonazepam (Klonopin -) 0.5 mg PO TID [facility] Last Admin: 11/09/18 06:01 Dose: 0.5 mg Divalproex Sodium (Depakote -) 250 mg PO BID [facility] Last Admin: 11/09/18 09:49 Dose: 250 mg Ceftriaxone Sodium 1 gm/ (Dextrose) 50 mls @ 100 mls/hr IVPB DAILY [facility] Last Admin: 11/09/18 09:50 Dose: 100 mls/hr Lisinopril (Prinivil) 10 mg PO DAILY [facility] Metoprolol Tartrate (Lopressor -) 50 mg PO BID [facility] Last Admin: 11/09/18 09:49 Dose: 50 mg Metoprolol Tartrate (Lopressor Injection -) 5 mg IVPUSH Q6H PRN PRN Reason: HR ABOVE 130 Rivaroxaban (Xarelto) 20 mg PO DAILY@1800 [facility] Last Admin: 11/08/18 17:48 Dose: 20 mg - Objective Vital Signs: Vital Signs Temperature 98.7 F 11/09/18 10:00 Pulse Rate 114 H 11/09/18 10:00 Respiratory Rate 20 11/09/18 10:00 Blood Pressure 147/69 11/09/18 10:00 O2 Sat by Pulse Oximetry (%) 96 11/09/18 07:27 Constitutional: Yes: No Distress, Calm Cardiovascular: Yes: S1, S2 Respiratory: Yes: Regular, CTA Bilaterally Gastrointestinal: Yes: Normal Bowel Sounds, Soft Musculoskeletal: Yes: WNL Extremities: Yes: WNL Neurological: Yes: Alert, Other Labs: CBC, BMP 11/08/18 05:30 11/08/18 05:30 INR, PTT INR 1.26 (0.83-1.09) H 11/06/18 09:38 Assessment/Plan Problem List - Problems (1) Pelvic fracture Code(s): S32.9XXA - FRACTURE OF UNSP PARTS OF LUMBOSACRAL SPINE AND PELVIS, INIT (2) Respiratory distress Code(s): R06.03 - ACUTE RESPIRATORY DISTRESS (3) Severe sepsis Code(s): A41.9 - SEPSIS, UNSPECIFIED ORGANISM; R65.20 - SEVERE SEPSIS WITHOUT SEPTIC SHOCK (4) UTI (urinary tract infection) Code(s): N39.0 - URINARY TRACT INFECTION, SITE NOT SPECIFIED Qualifiers: Urinary tract infection type: site unspecified Hematuria presence: without hematuria Qualified Code(s): N39.0 - Urinary tract infection, site not specified plan patient stable will continue abx for now nutrition rest as per the team
[2018-11-09] MEDS: RIVAROXABAN 20 MG TABLET PO SCH (17:45)
[2018-11-09] MEDS: ACETAMINOPHEN 325 MG TABLET (FP) PO PRN (21:30)
[2018-11-10] MEDS: clonazePAM 0.5 MG TABLET PO SCH ×3 (05:29→21:13)
[2018-11-10] MEDS: ALBUTEROL SO4 2.5/IPRATROPIUM 0.5 INH SOL 3 ML VIAL.NEB. NEB PRN (07:30)
--- NOTE | 2018-11-10 10:53 | PN ---
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 (short form) - Note 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: awake/ comfortable chart reviewed spiked temp 101. 2 last night Vital Signs Temp 98.2 F 11/10/18 09:35 Pulse 92 H 11/10/18 09:35 Resp 22 H 11/10/18 09:35 BP 126/67 11/10/18 09:35 Pulse Ox 94 L 11/09/18 21:00 Intake & Output 11/09/18 11/09/18 11/10/18 11:59 23:59 11:59 Intake Total 10 520 Balance 10 520 Weight 179 lb Intake: IV 10 Normal Saline - 1,000 ml 10 @ 100 mls/hr IV ASDIR [facility] Rx#:[id number] Oral 520 Other: Voiding Method Incontinent Incontinent Diaper # Unmeasured Voids Void 2 2 2 Bowel Movement Yes Yes: Large Soft # Bowel Movements 1 1 Height 5 ft 7 in Body Mass Index (BMI) 28.0 Active Medications Acetaminophen (Tylenol -) 650 mg PO Q8H PRN PRN Reason: PAIN OR FEVER Last Admin: 11/09/18 21:30 Dose: 650 mg Albuterol/Ipratropium (Duoneb -) 1 amp NEB Q4H PRN PRN Reason: ASTHMA Last Admin: 11/10/18 07:30 Dose: 1 amp Clonazepam (Klonopin -) 0.5 mg PO TID [facility] Last Admin: 11/10/18 05:29 Dose: 0.5 mg Divalproex Sodium (Depakote -) 250 mg PO BID [facility] Last Admin: 11/09/18 22:26 Dose: 250 mg Ceftriaxone Sodium 1 gm/ (Dextrose) 50 mls @ 100 mls/hr IVPB DAILY [facility] Last Admin: 11/09/18 09:50 Dose: 100 mls/hr Lisinopril (Prinivil) 10 mg PO DAILY [facility] Metoprolol Tartrate (Lopressor -) 50 mg PO BID [facility] Last Admin: 11/09/18 21:29 Dose: 50 mg Metoprolol Tartrate (Lopressor Injection -) 5 mg IVPUSH Q6H PRN PRN Reason: HR ABOVE 130 Rivaroxaban (Xarelto) 20 mg PO DAILY@1800 [facility] Last Admin: 11/09/18 17:45 Dose: 20 mg CBC, BMP 11/08/18 05:30 11/08/18 05:30 Microbiology 11/06/18 09:38 Blood Culture - Preliminary Blood - Peripheral Venous NO GROWTH OBTAINED AFTER 96 HOURS, INCUBATION TO CONTINUE FOR 1 DAYS. 11/06/18 09:38 Blood Culture - Preliminary Blood - Peripheral Venous NO GROWTH OBTAINED AFTER 96 HOURS, INCUBATION TO CONTINUE FOR 1 DAYS. Physical Exam S1 s2 irregular Lungs decreased, ronchi+ Abd- soft, NT no edema awake PLAN much better abx monitor today as spiked temp last night pt is dnr/ DNI swallow eval will follow d/c tele Problem List - Problems (1) Respiratory distress Code(s): R06.03 - ACUTE RESPIRATORY DISTRESS (2) Severe sepsis Code(s): A41.9 - SEPSIS, UNSPECIFIED ORGANISM; R65.20 - SEVERE SEPSIS WITHOUT SEPTIC SHOCK (3) Anticoagulation adequate with anticoagulant therapy Code(s): Z79.01 - RETIREMENT (CURRENT) USE OF ANTICOAGULANTS (4) Atrial fibrillation Code(s): I48.91 - UNSPECIFIED ATRIAL FIBRILLATION Qualifiers: Atrial fibrillation type: persistent Qualified Code(s): I48.1 - Persistent atrial fibrillation (5) Pelvic fracture Code(s): S32.9XXA - FRACTURE OF UNSP PARTS OF LUMBOSACRAL SPINE AND PELVIS, INIT
[2018-11-10] MEDS ORDERED: DEXTROSE 5%-WATER - 50 ML IVPB ONE (11:22)
[2018-11-10] MEDS ORDERED: cefTRIAXone SODIUM 1 GM VIAL ONE (11:22)
--- NOTE | 2018-11-10 11:47 | PN ---
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 Encourage supplements, which are more dense calorically such as Magic cup and 2 Tin HN Selected Entries 11/09/18 11/09/18 11/09/18 01:24 06:00 10:00 Breakfast Temperature 98.6 F 100.5 F H 98.7 F 11/09/18 10:52 Breakfast 25% Temperature Laboratory Tests 11/08/18 05:30 WBC 9.0 Selected Entries 11/09/18 11/09/18 11/10/18 10:52 15:00 01:13 Breakfast 25% 25% Diet Tolerated Fair Fair Lunch 50% Temperature 99.1 F 11/10/18 11/10/18 11/10/18 05:00 09:35 10:31 Breakfast 75% Diet Tolerated Fair Lunch Temperature 97.3 F L 98.2 F Laboratory Tests 11/08/18 05:30 WBC 9.0 Selected Entries 11/07/18 11/07/18 11/07/18 01:53 05:00 09:00 Temperature 99.4 F 99.5 F 99 F 11/07/18 11/07/18 11/07/18 14:00 17:00 21:45 Temperature 101.1 F H 100.0 F H 101.5 F H 11/07/18 11/08/18 11/08/18 23:15 01:14 05:00 Temperature 101.1 F H 99.8 F H 100.5 F H 11/08/18 11/08/18 11/08/18 14:23 17:00 22:00 Temperature 97.3 F L 100.1 F H 99 F 11/09/18 11/09/18 11/09/18 01:24 06:00 10:00 Temperature 98.6 F 100.5 F H 98.7 F 11/09/18 11/09/18 11/09/18 15:00 17:00 21:15 Temperature 98.4 F 100.8 F H 101.2 F H 11/09/18 11/10/18 11/10/18 23:00 01:13 05:00 Temperature 98.8 F 99.1 F 97.3 F L 11/10/18 09:35 Temperature 98.2 F ID on case.
[2018-11-10] MEDS: METOPROLOL TARTRATE 50 MG TABLET (FP) PO SCH ×2 (11:50→21:13)
[2018-11-10] MEDS: DIVALPROEX SODIUM 250 MG TABLET E.C. PO SCH ×2 (11:50→21:13)
[2018-11-10] MEDS: CEFTRIAXONE 1 GM in DEXTROSE 5%-WATER - 50 ML IVPB SCH (11:50)
[2018-11-10] MEDS: LISINOPRIL 10 MG TABLET (FP) PO SCH (11:50)
--- NOTE | 2018-11-10 13:55 | PN ---
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 - Current Medication List Current Medications: Active Medications Acetaminophen (Tylenol -) 650 mg PO Q8H PRN PRN Reason: PAIN OR FEVER Last Admin: 11/09/18 21:30 Dose: 650 mg Albuterol/Ipratropium (Duoneb -) 1 amp NEB Q4H PRN PRN Reason: ASTHMA Last Admin: 11/10/18 07:30 Dose: 1 amp Clonazepam (Klonopin -) 0.5 mg PO TID [facility] Last Admin: 11/10/18 13:34 Dose: 0.5 mg Divalproex Sodium (Depakote -) 250 mg PO BID [facility] Last Admin: 11/10/18 11:50 Dose: 250 mg Ceftriaxone Sodium 1 gm/ (Dextrose) 50 mls @ 100 mls/hr IVPB DAILY [facility] Last Admin: 11/10/18 11:50 Dose: 100 mls/hr Lisinopril (Prinivil) 10 mg PO DAILY [facility] Last Admin: 11/10/18 11:50 Dose: 10 mg Metoprolol Tartrate (Lopressor -) 50 mg PO BID [facility] Last Admin: 11/10/18 11:50 Dose: 50 mg Metoprolol Tartrate (Lopressor Injection -) 5 mg IVPUSH Q6H PRN PRN Reason: HR ABOVE 130 Rivaroxaban (Xarelto) 20 mg PO DAILY@1800 [facility] Last Admin: 11/09/18 17:45 Dose: 20 mg - Objective Vital Signs: Vital Signs Temperature 98.2 F 11/10/18 09:35 Pulse Rate 92 H 11/10/18 09:35 Respiratory Rate 22 H 11/10/18 09:35 Blood Pressure 126/67 11/10/18 09:35 O2 Sat by Pulse Oximetry (%) 91 L 11/10/18 09:00 Constitutional: Yes: No Distress, Calm Neck: Yes: Supple Cardiovascular: Yes: Pulse Irregular Respiratory: Yes: Regular, Diminished, On Nasal O2 Gastrointestinal: Yes: Soft, Hypoactive Bowel Sounds Edema: No Labs: CBC, BMP 11/08/18 05:30 11/08/18 05:30 INR, PTT INR 1.26 (0.83-1.09) H 11/06/18 09:38 Problem List - Problems (1) UTI (urinary tract infection) Code(s): N39.0 - URINARY TRACT INFECTION, SITE NOT SPECIFIED Qualifiers: Urinary tract infection type: site unspecified Hematuria presence: without hematuria Qualified Code(s): N39.0 - Urinary tract infection, site not specified (2) Anticoagulation adequate with anticoagulant therapy Code(s): Z79.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 transplanted heart: [place] heart Associated angina: without angina Qualified Code(s): I25.10 - Atherosclerotic heart disease of [place] coronary artery without angina pectoris (5) Dementia Code(s): F03.90 - UNSPECIFIED DEMENTIA WITHOUT BEHAVIORAL DISTURBANCE Qualifiers: Dementia type: unspecified type Dementia behavioral disturbance: without behavioral disturbance Qualified Code(s): F03.90 - Unspecified dementia without behavioral disturbance (6) Diastolic dysfunction Code(s): I51.9 - HEART DISEASE, UNSPECIFIED (7) Hyperlipidemia Code(s): E78.5 - HYPERLIPIDEMIA, UNSPECIFIED Qualifiers: Hyperlipidemia type: pure hypercholesterolemia Qualified Code(s): E78.00 - Pure hypercholesterolemia, unspecified; E78.0 - Pure hypercholesterolemia Assessment/Plan 11/07/2018 Echocardiography: Normal LV and size and fxn 1. Persistent AF with improved rate-control 2. CAD, angina 3. HTN 4. Hypercholesterolemia 5. Organic brain/dementia 6. Sepsis likely source - e. coli UTI 7. LV diastolic dysfunction PLAN: 1. Continue Xarelto 20 qd 2. Continue Metoprolol 50 bid for rate control, lisinopril 10 qd 3. Cardizem IV for added rate control 4. Complete empiric antibiotic coverage per C&S 5. D/c telemetry
--- NOTE | 2018-11-10 14:14 | PN ---
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, Physician History of Present Illness: looks s table now spiked a temp - Current Medication List Current Medications: Active Medications Acetaminophen (Tylenol -) 650 mg PO Q8H PRN PRN Reason: PAIN OR FEVER Last Admin: 11/09/18 21:30 Dose: 650 mg Albuterol/Ipratropium (Duoneb -) 1 amp NEB Q4H PRN PRN Reason: ASTHMA Last Admin: 11/10/18 07:30 Dose: 1 amp Clonazepam (Klonopin -) 0.5 mg PO TID [facility] Last Admin: 11/10/18 13:34 Dose: 0.5 mg Divalproex Sodium (Depakote -) 250 mg PO BID [facility] Last Admin: 11/10/18 11:50 Dose: 250 mg Ceftriaxone Sodium 1 gm/ (Dextrose) 50 mls @ 100 mls/hr IVPB DAILY [facility] Last Admin: 11/10/18 11:50 Dose: 100 mls/hr Lisinopril (Prinivil) 10 mg PO DAILY [facility] Last Admin: 11/10/18 11:50 Dose: 10 mg Metoprolol Tartrate (Lopressor -) 50 mg PO BID [facility] Last Admin: 11/10/18 11:50 Dose: 50 mg Metoprolol Tartrate (Lopressor Injection -) 5 mg IVPUSH Q6H PRN PRN Reason: HR ABOVE 130 Rivaroxaban (Xarelto) 20 mg PO DAILY@1800 [facility] Last Admin: 11/09/18 17:45 Dose: 20 mg - Objective Vital Signs: Vital Signs Temperature 98.2 F 11/10/18 09:35 Pulse Rate 92 H 11/10/18 09:35 Respiratory Rate 22 H 11/10/18 09:35 Blood Pressure 126/67 11/10/18 09:35 O2 Sat by Pulse Oximetry (%) 91 L 11/10/18 09:00 Constitutional: Yes: No Distress, Calm Cardiovascular: Yes: S1, S2 Respiratory: Yes: Regular, CTA Bilaterally Gastrointestinal: Yes: Normal Bowel Sounds, Soft Musculoskeletal: Yes: WNL Extremities: Yes: WNL Neurological: Yes: Alert Labs: CBC, BMP 11/08/18 05:30 11/08/18 05:30 INR, PTT INR 1.26 (0.83-1.09) H 11/06/18 09:38 Assessment/Plan Problem List - Problems (1) Pelvic fracture Code(s): S32.9XXA - FRACTURE OF UNSP PARTS OF LUMBOSACRAL SPINE AND PELVIS, INIT (2) Respiratory distress Code(s): R06.03 - ACUTE RESPIRATORY DISTRESS (3) Severe sepsis Code(s): A41.9 - SEPSIS, UNSPECIFIED ORGANISM; R65.20 - SEVERE SEPSIS WITHOUT SEPTIC SHOCK (4) UTI (urinary tract infection) Code(s): N39.0 - URINARY TRACT INFECTION, SITE NOT SPECIFIED Qualifiers: Urinary tract infection type: site unspecified Hematuria presence: without hematuria Qualified Code(s): N39.0 - Urinary tract infection, site not specified plan patient stable will continue abx for now temp curve if remains afebrile for more than 24 hours will stop abx
[2018-11-10] MEDS: RIVAROXABAN 20 MG TABLET PO SCH (18:18)
[2018-11-11] MEDS: ACETAMINOPHEN 325 MG TABLET (FP) PO PRN ×3 (02:53→22:07)
[2018-11-11] MEDS: clonazePAM 0.5 MG TABLET PO SCH ×4 (06:42→22:07)
--- NOTE | 2018-11-11 06:45 | PN ---
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 (short form) - Note 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: Chief Complaint: Events noted, notes reviewed, agitated, confused and disoriented, no distress, remains monitored- atrial fibrillation persists History of Present Illness: Seen and examined on telemetry. Events noted, notes reviewed, agitated, confused and disoriented, no distress, remains monitored- atrial fibrillation persists 11/07/2018 Echocardiography: Normal LV and size and function - Current Medication List Current Medications Acetaminophen (Tylenol -) 650 mg PO Q8H PRN PRN Reason: PAIN OR FEVER Last Admin: 11/11/18 02:53 Dose: 650 mg Albuterol/Ipratropium (Duoneb -) 1 amp NEB Q4H PRN PRN Reason: ASTHMA Last Admin: 11/10/18 07:30 Dose: 1 amp Clonazepam (Klonopin -) 0.5 mg PO TID [facility] Last Admin: 11/11/18 06:42 Dose: 0.5 mg Divalproex Sodium (Depakote -) 250 mg PO BID [facility] Last Admin: 11/10/18 21:13 Dose: 250 mg Ceftriaxone Sodium 1 gm/ (Dextrose) 50 mls @ 100 mls/hr IVPB DAILY [facility] Last Admin: 11/10/18 11:50 Dose: 100 mls/hr Lisinopril (Prinivil) 10 mg PO DAILY [facility] Last Admin: 11/10/18 11:50 Dose: 10 mg Metoprolol Tartrate (Lopressor -) 50 mg PO BID [facility] Last Admin: 11/10/18 21:13 Dose: 50 mg Metoprolol Tartrate (Lopressor Injection -) 5 mg IVPUSH Q6H PRN PRN Reason: HR ABOVE 130 Rivaroxaban (Xarelto) 20 mg PO DAILY@1800 [facility] Last Admin: 11/10/18 18:18 Dose: 20 mg Review of Systems Unable to obtain, confusion/disorientation - Objective Vital Signs: Last Vital Signs Temp Pulse Resp BP Pulse Ox 99.1 F 96 H 20 130/78 92 L 11/11/18 06:00 11/11/18 06:00 11/11/18 06:00 11/11/18 06:00 11/10/18 21:00 Intake & Output 11/08/18 11/09/18 11/10/18 11/11/18 23:59 23:59 23:59 23:59 Intake Total 1810 10 1260 160 Balance 1810 10 1260 160 Weight 179 lb Neck: Supple Negative JVD No Bruit Cardiovascular: S1 S2 Irregularly Irregular Respiratory: clear to A&P Bilaterally Gastrointestinal: Soft Benign Normal Bowel Sounds Ext: Negative Edema Labs: CBC, BMP 11/11/18 05:30 11/11/18 05:30 Hepatic Panel Total Bilirubin 0.5 mg/dL (0.2-1) 11/11/18 05:30 AST 21 U/L (15-37) 11/11/18 05:30 ALT 28 U/L (13-61) 11/11/18 05:30 Alkaline Phosphatase 87 U/L (45-117) 11/11/18 05:30 Albumin 2.2 g/dl (3.4-5.0) L 11/11/18 05:30 INR, PTT INR 1.26 (0.83-1.09) H 11/06/18 09:38 Assessment/Plan ASSESSMENT: 1. Persistent atrial fibrillation [id number] score of 4 on Xarelto, with improved rate-control 2. CAD angina pectoris 3. LV diastolic dysfunction with clinical class 0-I NHYA classification LV failure, compensated/eovolemic 4. HTN 5. Hypercholesterolemia 6. Organic brain syndrome/dementia 7. Sepsis likely source, resolving PLAN: 1. Continue Xarelto 2. Continue Lopressor 3. Continue Lisinopril 4. Antibiotics as per the primary team 5. D/C telemetry as noted in yesterday's note, and may be transferred to medical floor Skip Childs M.D.
[2018-11-11 06:47] LABS: BASO % 0.6 % (0-2.0); EOS % 9.6 % (0-4.5); HEMATOCRIT 27.8 % (32.4-45.2); HEMOGLOBIN 9.2 GM/dL (10.7-15.3); LYMPH % 17.5 % (8-40); MCH 31.4 pg (25.7-33.7); MCHC 33.1 g/dl (32.0-36.0); MEAN CELL VOLUME 94.9 fl (80-96); MEAN PLT VOLUME 8.3 fl (7.5-11.1); NEUT % 64.3 % (42.8-82.8); PLATELET COUNT 284 K/MM3 (134-434); RBC 2.93 M/mm3 (3.60-5.2); WHITE BLOOD COUNT 8.5 K/mm3 (4.0-10.0)
[2018-11-11 07:12] LABS: ALBUMIN 2.2 g/dl (3.4-5.0); BILIRUBIN,TOTAL 0.5 mg/dL (0.2-1); CALCIUM 8.3 mg/dL (8.5-10.1); CREATININE 0.6 mg/dL (0.55-1.3); POTASSIUM 3.6 mmol/L (3.5-5.1); TOT PROT 5.4 g/dl (6.4-8.2)
[2018-11-11] MEDS ORDERED: cefTRIAXone SODIUM 1 GM VIAL ONE (08:57)
[2018-11-11] MEDS ORDERED: DEXTROSE 5%-WATER - 50 ML IVPB ONE ×2 (08:57→15:17)
[2018-11-11] MEDS: METOPROLOL TARTRATE 50 MG TABLET (FP) PO SCH ×2 (09:18→22:07)
[2018-11-11] MEDS: LISINOPRIL 10 MG TABLET (FP) PO SCH ×2 (09:18→22:07)
[2018-11-11] MEDS: DIVALPROEX SODIUM 250 MG TABLET E.C. PO SCH ×2 (09:18→22:07)
[2018-11-11] MEDS: CEFTRIAXONE 1 GM in DEXTROSE 5%-WATER - 50 ML IVPB SCH (09:19)
--- NOTE | 2018-11-11 10:41 | PN ---
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 (short form) - Note 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: pt seen/ examined chart reviewed awake/ comfortable continue to have fever Vital Signs Temp 99.1 F 11/11/18 06:00 Pulse 103 H 11/11/18 08:43 Resp 26 H 11/11/18 08:43 BP 155/100 11/11/18 08:43 Pulse Ox 92 L 11/10/18 21:00 Intake & Output 11/10/18 11/10/18 11/11/18 11:59 23:59 11:59 Intake Total 520 740 180 Balance 520 740 180 Intake: IV 30 10 saline lock 30 10 IVPB 50 Oral 520 660 150 Oral Supplement 20 Other: Voiding Method Diaper Incontinent Incontinent # Unmeasured Voids Void 2 2 2 Bowel Movement Medium Soft No # Bowel Movements 1 Active Medications Acetaminophen (Tylenol -) 650 mg PO Q8H PRN PRN Reason: PAIN OR FEVER Last Admin: 11/11/18 09:15 Dose: 650 mg Albuterol/Ipratropium (Duoneb -) 1 amp NEB Q4H PRN PRN Reason: ASTHMA Last Admin: 11/10/18 07:30 Dose: 1 amp Clonazepam (Klonopin -) 0.5 mg PO TID [facility] Last Admin: 11/11/18 06:42 Dose: 0.5 mg Divalproex Sodium (Depakote -) 250 mg PO BID [facility] Last Admin: 11/11/18 09:18 Dose: 250 mg Ceftriaxone Sodium 1 gm/ (Dextrose) 50 mls @ 100 mls/hr IVPB DAILY [facility] Last Admin: 11/11/18 09:19 Dose: 100 mls/hr Lisinopril (Prinivil) 10 mg PO BID [facility] Metoprolol Tartrate (Lopressor -) 50 mg PO BID [facility] Last Admin: 11/11/18 09:18 Dose: 50 mg Metoprolol Tartrate (Lopressor Injection -) 5 mg IVPUSH Q6H PRN PRN Reason: HR ABOVE 130 Rivaroxaban (Xarelto) 20 mg PO DAILY@1800 [facility] Last Admin: 11/10/18 18:18 Dose: 20 mg CBC, BMP 11/11/18 05:30 11/11/18 05:30 Physical Exam S1 s2 irregular Lungs decreased, ronchi+ Abd- soft, NT no edema awake PLAN stable continue to have fever abx i/d to follow pt is dnr/ DNI swallow eval will follow d/c tele increase lisinopril Problem List - Problems (1) Respiratory distress Code(s): R06.03 - ACUTE RESPIRATORY DISTRESS (2) Severe sepsis Code(s): A41.9 - SEPSIS, UNSPECIFIED ORGANISM; R65.20 - SEVERE SEPSIS WITHOUT SEPTIC SHOCK (3) Anticoagulation adequate with anticoagulant therapy Code(s): Z79.01 - RESIDENTIAL (CURRENT) USE OF ANTICOAGULANTS (4) Atrial fibrillation Code(s): I48.91 - UNSPECIFIED ATRIAL FIBRILLATION Qualifiers: Atrial fibrillation type: persistent Qualified Code(s): I48.1 - Persistent atrial fibrillation (5) Pelvic fracture Code(s): S32.9XXA - FRACTURE OF UNSP PARTS OF LUMBOSACRAL SPINE AND PELVIS, INIT
--- NOTE | 2018-11-11 12:51 | PN ---
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, Physician History of Present Illness: patient was spiking low grade fever now spiked high grade inspite of being on ceftriaxone also coughing - Current Medication List Current Medications: Active Medications Acetaminophen (Tylenol -) 650 mg PO Q8H PRN PRN Reason: PAIN OR FEVER Last Admin: 11/11/18 09:15 Dose: 650 mg Albuterol/Ipratropium (Duoneb -) 1 amp NEB Q4H PRN PRN Reason: ASTHMA Last Admin: 11/10/18 07:30 Dose: 1 amp Clonazepam (Klonopin -) 0.5 mg PO TID [facility] Last Admin: 11/11/18 06:42 Dose: 0.5 mg Divalproex Sodium (Depakote -) 250 mg PO BID [facility] Last Admin: 11/11/18 09:18 Dose: 250 mg Ceftriaxone Sodium 1 gm/ (Dextrose) 50 mls @ 100 mls/hr IVPB DAILY [facility] Last Admin: 11/11/18 09:19 Dose: 100 mls/hr Lisinopril (Prinivil) 10 mg PO BID [facility] Metoprolol Tartrate (Lopressor -) 50 mg PO BID [facility] Last Admin: 11/11/18 09:18 Dose: 50 mg Metoprolol Tartrate (Lopressor Injection -) 5 mg IVPUSH Q6H PRN PRN Reason: HR ABOVE 130 Rivaroxaban (Xarelto) 20 mg PO DAILY@1800 [facility] Last Admin: 11/10/18 18:18 Dose: 20 mg - Objective Vital Signs: Vital Signs Temperature 99.1 F 11/11/18 06:00 Pulse Rate 103 H 11/11/18 08:43 Respiratory Rate 26 H 11/11/18 10:00 Blood Pressure 155/100 11/11/18 08:43 O2 Sat by Pulse Oximetry (%) 92 L 11/11/18 10:00 Constitutional: Yes: No Distress, Calm Cardiovascular: Yes: S1, S2 Respiratory: Yes: Regular, CTA Bilaterally Gastrointestinal: Yes: Normal Bowel Sounds, Soft Musculoskeletal: Yes: WNL Extremities: Yes: WNL Neurological: Yes: Alert Psychiatric: Yes: Alert Labs: CBC, BMP 11/11/18 05:30 11/11/18 05:30 INR, PTT INR 1.26 (0.83-1.09) H 11/06/18 09:38 Assessment/Plan Problem List - Problems (1) Pelvic fracture Code(s): S32.9XXA - FRACTURE OF UNSP PARTS OF LUMBOSACRAL SPINE AND PELVIS, INIT (2) Respiratory distress Code(s): R06.03 - ACUTE RESPIRATORY DISTRESS (3) Severe sepsis Code(s): A41.9 - SEPSIS, UNSPECIFIED ORGANISM; R65.20 - SEVERE SEPSIS WITHOUT SEPTIC SHOCK (4) UTI (urinary tract infection) Code(s): N39.0 - URINARY TRACT INFECTION, SITE NOT SPECIFIED Qualifiers: Urinary tract infection type: site unspecified Hematuria presence: without hematuria Qualified Code(s): N39.0 - Urinary tract infection, site not specified plan will change abx to zosyn and watch also will get a portable xray chest and blood cx
[2018-11-11] MEDS ORDERED: METOPROLOL TARTRATE 5 MG/5 ML VIAL IVPUSH PRN (14:11)
[2018-11-11] MEDS ORDERED: ALBUTEROL SO4 2.5/IPRATROPIUM 0.5 INH SOL 3 ML VIAL.NEB. NEB PRN (14:11)
[2018-11-11] MEDS ORDERED: PIPERACILLIN/TAZOBACTAM 3.375 GM VIAL IVPB ONE (15:17)
[2018-11-11] MEDS: PIPERACILLIN/TAZOB 3.375 GM 3.375 GM in DEXTROSE 5%-WATER - 50 ML IVPB SCH ×2 (15:17→17:38)
[2018-11-11] MEDS: RIVAROXABAN 20 MG TABLET PO SCH (17:37)
[2018-11-11] MEDS ORDERED: clonazePAM 0.5 MG TABLET PO SCH (22:00)
[2018-11-12] MEDS ORDERED: PIPERACILLIN/TAZOBACTAM 3.375 GM VIAL IVPB ONE ×3 (01:15→16:57)
[2018-11-12] MEDS ORDERED: DEXTROSE 5%-WATER - 50 ML IVPB ONE ×3 (01:15→16:57)
[2018-11-12] MEDS: PIPERACILLIN/TAZOB 3.375 GM 3.375 GM in DEXTROSE 5%-WATER - 50 ML IVPB SCH ×3 (01:24→17:09)
[2018-11-12] MEDS: clonazePAM 0.5 MG TABLET PO SCH ×3 (05:12→21:45)
[2018-11-12] MEDS: DIVALPROEX SODIUM 250 MG TABLET E.C. PO SCH ×2 (09:14→21:45)
[2018-11-12] MEDS: LISINOPRIL 10 MG TABLET (FP) PO SCH ×2 (09:14→21:45)
[2018-11-12] MEDS: METOPROLOL TARTRATE 50 MG TABLET (FP) PO SCH ×2 (09:15→21:45)
--- NOTE | 2018-11-12 10:41 | PN ---
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, Physician History of Present Illness: patient continues to be confused has been afebrile now xray chest noted blood cx pending - Current Medication List Current Medications: Active Medications Acetaminophen (Tylenol -) 650 mg PO Q8H PRN PRN Reason: PAIN OR FEVER Last Admin: 11/11/18 22:07 Dose: 650 mg Albuterol/Ipratropium (Duoneb -) 1 amp NEB Q4H PRN PRN Reason: ASTHMA Clonazepam (Klonopin -) 0.5 mg PO TID [facility] Last Admin: 11/12/18 05:12 Dose: 0.5 mg Divalproex Sodium (Depakote -) 250 mg PO BID [facility] Last Admin: 11/12/18 09:14 Dose: 250 mg Piperacillin Sod/Tazobactam (Sod 3.375 gm/ Dextrose) 50 mls @ 100 mls/hr IVPB Q8H-IV [facility]; Protocol Last Admin: 11/12/18 09:15 Dose: 100 mls/hr Lisinopril (Prinivil) 10 mg PO BID [facility] Last Admin: 11/12/18 09:14 Dose: 10 mg Metoprolol Tartrate (Lopressor -) 50 mg PO BID [facility] Last Admin: 11/12/18 09:15 Dose: 50 mg Metoprolol Tartrate (Lopressor Injection -) 5 mg IVPUSH Q6H PRN PRN Reason: HR ABOVE 130 Rivaroxaban (Xarelto) 20 mg PO DAILY@1800 [facility] Last Admin: 11/11/18 17:37 Dose: 20 mg - Objective Vital Signs: Vital Signs Temperature 98 F 11/12/18 06:15 Pulse Rate 100 H 11/12/18 06:15 Respiratory Rate 20 11/12/18 09:00 Blood Pressure 141/92 11/12/18 06:15 O2 Sat by Pulse Oximetry (%) 92 L 11/12/18 09:00 Constitutional: Yes: No Distress, Calm Cardiovascular: Yes: S1, S2 Respiratory: Yes: Regular, Poor Air Entry (bases) Gastrointestinal: Yes: Normal Bowel Sounds, Soft Musculoskeletal: Yes: WNL Extremities: Yes: WNL Neurological: Yes: Alert, Other (dementia) Psychiatric: Yes: Other Labs: CBC, BMP 11/11/18 05:30 11/11/18 05:30 INR, PTT INR 1.26 (0.83-1.09) H 11/06/18 09:38
--- NOTE | 2018-11-12 12:56 | PN ---
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 (short form) - Note 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: comfortable no distress i/d f/u noted abx changed to zosyn Vital Signs Temp 98 F 11/12/18 06:15 Pulse 100 H 11/12/18 06:15 Resp 20 11/12/18 09:00 BP 141/92 11/12/18 06:15 Pulse Ox 92 L 11/12/18 09:00 Intake & Output 11/11/18 11/12/18 11/12/18 23:59 11:59 23:59 Intake Total 620 100 Balance 620 100 Intake: IVPB 100 50 Oral 520 50 Other: Voiding Method Diaper Incontinent # Unmeasured Voids Void 2 Bowel Movement No Yes # Bowel Movements 1 Active Medications Acetaminophen (Tylenol -) 650 mg PO Q8H PRN PRN Reason: PAIN OR FEVER Last Admin: 11/11/18 22:07 Dose: 650 mg Albuterol/Ipratropium (Duoneb -) 1 amp NEB Q4H PRN PRN Reason: ASTHMA Clonazepam (Klonopin -) 0.5 mg PO TID [facility] Last Admin: 11/12/18 05:12 Dose: 0.5 mg Divalproex Sodium (Depakote -) 250 mg PO BID [facility] Last Admin: 11/12/18 09:14 Dose: 250 mg Piperacillin Sod/Tazobactam (Sod 3.375 gm/ Dextrose) 50 mls @ 100 mls/hr IVPB Q8H-IV [facility]; Protocol Last Admin: 11/12/18 09:15 Dose: 100 mls/hr Lisinopril (Prinivil) 10 mg PO BID [facility] Last Admin: 11/12/18 09:14 Dose: 10 mg Metoprolol Tartrate (Lopressor -) 50 mg PO BID [facility] Last Admin: 11/12/18 09:15 Dose: 50 mg Metoprolol Tartrate (Lopressor Injection -) 5 mg IVPUSH Q6H PRN PRN Reason: HR ABOVE 130 Rivaroxaban (Xarelto) 20 mg PO DAILY@1800 [facility] Last Admin: 11/11/18 17:37 Dose: 20 mg CBC, BMP 11/11/18 05:30 11/11/18 05:30 Microbiology 11/06/18 09:38 Blood Culture - Final Blood - Peripheral Venous NO GROWTH AFTER 5 DAYS INCUBATION 11/06/18 09:38 Blood Culture - Final Blood - Peripheral Venous NO GROWTH AFTER 5 DAYS INCUBATION cxr -- Infiltrate ? Physical Exam S1 s2 irregular Lungs decreased, ronchi+ Abd- soft, NT no edema awake PLAN stable pneumonia abx pt is dnr/ DNI will follow Problem List - Problems (1) Respiratory distress Code(s): R06.03 - ACUTE RESPIRATORY DISTRESS (2) Severe sepsis Code(s): A41.9 - SEPSIS, UNSPECIFIED ORGANISM; R65.20 - SEVERE SEPSIS WITHOUT SEPTIC SHOCK (3) Anticoagulation adequate with anticoagulant therapy Code(s): Z79.01 - ASSISTED (CURRENT) USE OF ANTICOAGULANTS (4) Atrial fibrillation Code(s): I48.91 - UNSPECIFIED ATRIAL FIBRILLATION Qualifiers: Atrial fibrillation type: persistent Qualified Code(s): I48.1 - Persistent atrial fibrillation (5) Pelvic fracture Code(s): S32.9XXA - FRACTURE OF UNSP PARTS OF LUMBOSACRAL SPINE AND PELVIS, INIT
[2018-11-12] MEDS: RIVAROXABAN 20 MG TABLET PO SCH (17:13)
[2018-11-12] MEDS: ACETAMINOPHEN 325 MG TABLET (FP) PO PRN (23:07)
[2018-11-12] MEDS ORDERED: SODIUM CHLORIDE 500 ML IV ONE (23:30)
[2018-11-13] MEDS ORDERED: DEXTROSE 5%-WATER - 50 ML IVPB ONE ×3 (01:08→17:46)
[2018-11-13] MEDS ORDERED: PIPERACILLIN/TAZOBACTAM 3.375 GM VIAL IVPB ONE ×3 (01:08→17:46)
[2018-11-13] MEDS: PIPERACILLIN/TAZOB 3.375 GM 3.375 GM in DEXTROSE 5%-WATER - 50 ML IVPB SCH ×3 (03:09→17:51)
[2018-11-13 06:20] LABS: BASO % 0.6 % (0-2.0); HEMATOCRIT 28.3 % (32.4-45.2); HEMOGLOBIN 9.4 GM/dL (10.7-15.3); LYMPH % 15.6 % (8-40); MCH 31.6 pg (25.7-33.7); MCHC 33.1 g/dl (32.0-36.0); MEAN CELL VOLUME 95.4 fl (80-96); MEAN PLT VOLUME 7.7 fl (7.5-11.1); MONO % 9.5 % (3.8-10.2); NEUT % 62.3 % (42.8-82.8); PLATELET COUNT 334 K/MM3 (134-434); RBC 2.97 M/mm3 (3.60-5.2); RDW 15.1 % (11.6-15.6); WHITE BLOOD COUNT 5.9 K/mm3 (4.0-10.0)
[2018-11-13] MEDS: clonazePAM 0.5 MG TABLET PO SCH ×3 (06:39→21:38)
[2018-11-13 06:42] LABS: ALBUMIN 2.1 g/dl (3.4-5.0); BILIRUBIN,TOTAL 0.6 mg/dL (0.2-1); CALCIUM 8.1 mg/dL (8.5-10.1); CREATININE 0.7 mg/dL (0.55-1.3); POTASSIUM 3.7 mmol/L (3.5-5.1); TOT PROT 5.3 g/dl (6.4-8.2)
--- NOTE | 2018-11-13 09:55 | PN ---
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 (short form) - Note 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: awake/ comfortable continue to have fever--101 last night on zosyn cxr -- retrocardiac density no cough eating reasonably ok - as per staff Vital Signs Temp 98.0 F 11/13/18 05:48 Pulse 102 H 11/13/18 05:48 Resp 20 11/13/18 05:48 BP 146/98 11/13/18 05:48 Pulse Ox 92 L 11/12/18 21:00 Intake & Output 11/12/18 11/12/18 11/13/18 11:59 23:59 11:59 Intake Total 100 125 Balance 100 125 Intake: IVPB 50 100 Oral 50 25 Other: Voiding Method Incontinent Incontinent Bowel Movement Yes Yes # Bowel Movements 1 2 Active Medications Acetaminophen (Tylenol -) 650 mg PO Q8H PRN PRN Reason: PAIN OR FEVER Last Admin: 11/12/18 23:07 Dose: 650 mg Albuterol/Ipratropium (Duoneb -) 1 amp NEB Q4H PRN PRN Reason: ASTHMA Clonazepam (Klonopin -) 0.5 mg PO TID [facility] Last Admin: 11/13/18 06:39 Dose: 0.5 mg Divalproex Sodium (Depakote -) 250 mg PO BID [facility] Last Admin: 11/12/18 21:45 Dose: 250 mg Piperacillin Sod/Tazobactam (Sod 3.375 gm/ Dextrose) 50 mls @ 100 mls/hr IVPB Q8H-IV [facility]; Protocol Last Admin: 11/13/18 03:09 Dose: 100 mls/hr Lisinopril (Prinivil) 10 mg PO BID [facility] Last Admin: 11/12/18 21:45 Dose: 10 mg Metoprolol Tartrate (Lopressor -) 50 mg PO BID [facility] Last Admin: 11/12/18 21:45 Dose: 50 mg Metoprolol Tartrate (Lopressor Injection -) 5 mg IVPUSH Q6H PRN PRN Reason: HR ABOVE 130 Rivaroxaban (Xarelto) 20 mg PO DAILY@1800 [facility] Last Admin: 11/12/18 17:13 Dose: 20 mg CBC, BMP 11/13/18 05:30 11/13/18 05:30 Microbiology 11/11/18 13:53 Blood Culture - Preliminary Blood - Peripheral Venous NO GROWTH OBTAINED AFTER 24 HOURS, INCUBATION TO CONTINUE FOR 4 DAYS. 11/11/18 13:53 Blood Culture - Preliminary Blood - Peripheral Venous NO GROWTH OBTAINED AFTER 24 HOURS, INCUBATION TO CONTINUE FOR 4 DAYS. Physical Exam S1 s2 irregular Lungs decreased, ronchi+ Abd- soft, NT no edema awake PLAN stable but having fever pneumonia abx pt is dnr/ DNI Continue present care. abx will ask for swallow eval also will follow Problem List - Problems (1) Respiratory distress Code(s): R06.03 - ACUTE RESPIRATORY DISTRESS (2) Severe sepsis Code(s): A41.9 - SEPSIS, UNSPECIFIED ORGANISM; R65.20 - SEVERE SEPSIS WITHOUT SEPTIC SHOCK (3) Anticoagulation adequate with anticoagulant therapy Code(s): Z79.01 - [employer] (CURRENT) USE OF ANTICOAGULANTS (4) Atrial fibrillation Code(s): I48.91 - UNSPECIFIED ATRIAL FIBRILLATION Qualifiers: Atrial fibrillation type: persistent Qualified Code(s): I48.1 - Persistent atrial fibrillation (5) Pelvic fracture Code(s): S32.9XXA - FRACTURE OF UNSP PARTS OF LUMBOSACRAL SPINE AND PELVIS, INIT
--- NOTE | 2018-11-13 10:00 | PN ---
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, Physician Chief Complaint: Events noted Underlying dementia/organic brain/nonverbal History of Present Illness: Patient was seen and examined. Chart was reviewed - Current Medication List Current Medications: Active Medications Acetaminophen (Tylenol -) 650 mg PO Q8H PRN PRN Reason: PAIN OR FEVER Last Admin: 11/12/18 23:07 Dose: 650 mg Albuterol/Ipratropium (Duoneb -) 1 amp NEB Q4H PRN PRN Reason: ASTHMA Clonazepam (Klonopin -) 0.5 mg PO TID [facility] Last Admin: 11/13/18 06:39 Dose: 0.5 mg Divalproex Sodium (Depakote -) 250 mg PO BID [facility] Last Admin: 11/12/18 21:45 Dose: 250 mg Piperacillin Sod/Tazobactam (Sod 3.375 gm/ Dextrose) 50 mls @ 100 mls/hr IVPB Q8H-IV [facility]; Protocol Last Admin: 11/13/18 03:09 Dose: 100 mls/hr Lisinopril (Prinivil) 10 mg PO BID [facility] Last Admin: 11/12/18 21:45 Dose: 10 mg Metoprolol Tartrate (Lopressor -) 50 mg PO BID [facility] Last Admin: 11/12/18 21:45 Dose: 50 mg Metoprolol Tartrate (Lopressor Injection -) 5 mg IVPUSH Q6H PRN PRN Reason: HR ABOVE 130 Rivaroxaban (Xarelto) 20 mg PO DAILY@1800 [facility] Last Admin: 11/12/18 17:13 Dose: 20 mg - Objective Vital Signs: Vital Signs Temperature 98.0 F 11/13/18 05:48 Pulse Rate 102 H 11/13/18 05:48 Respiratory Rate 20 11/13/18 05:48 Blood Pressure 146/98 11/13/18 05:48 O2 Sat by Pulse Oximetry (%) 92 L 11/12/18 21:00 Cardiovascular: Yes: Pulse Irregular, S1, S2 Respiratory: Yes: Diminished Gastrointestinal: Yes: Normal Bowel Sounds, Soft. No: Tenderness Edema: No Labs: CBC, BMP 11/13/18 05:30 11/13/18 05:30 Problem List - Problems (1) Respiratory distress Code(s): R06.03 - ACUTE RESPIRATORY DISTRESS (2) Severe sepsis Code(s): A41.9 - SEPSIS, UNSPECIFIED ORGANISM; R65.20 - SEVERE SEPSIS WITHOUT SEPTIC SHOCK (3) UTI (urinary tract infection) Code(s): N39.0 - URINARY TRACT INFECTION, SITE NOT SPECIFIED Qualifiers: Urinary tract infection type: site unspecified Hematuria presence: without hematuria Qualified Code(s): N39.0 - Urinary tract infection, site not specified (4) Acute respiratory failure with hypoxia Code(s): J96.01 - ACUTE RESPIRATORY FAILURE WITH HYPOXIA (5) Atrial fibrillation Code(s): I48.91 - UNSPECIFIED ATRIAL FIBRILLATION Qualifiers: Atrial fibrillation type: persistent Qualified Code(s): I48.1 - Persistent atrial fibrillation (6) Coronary artery disease Code(s): I25.10 - ATHSCL HEART DISEASE OF [place] CORONARY ARTERY W/O ANG PCTRS Qualifiers: Coronary Disease-Associated Artery/Lesion type: [place] artery [place] vs. transplanted heart: [place] heart Associated angina: without angina Qualified Code(s): I25.10 - Atherosclerotic heart disease of [place] coronary artery without angina pectoris (7) Demand ischemia Code(s): I24.8 - OTHER FORMS OF ACUTE ISCHEMIC HEART DISEASE (8) Dementia Code(s): F03.90 - UNSPECIFIED DEMENTIA WITHOUT BEHAVIORAL DISTURBANCE Qualifiers: Dementia type: unspecified type Dementia behavioral disturbance: without behavioral disturbance Qualified Code(s): F03.90 - Unspecified dementia without behavioral disturbance (9) Diastolic dysfunction Code(s): I51.9 - HEART DISEASE, UNSPECIFIED (10) Hyperlipidemia Code(s): E78.5 - HYPERLIPIDEMIA, UNSPECIFIED Qualifiers: Hyperlipidemia type: pure hypercholesterolemia Qualified Code(s): E78.00 - Pure hypercholesterolemia, unspecified; E78.0 - Pure hypercholesterolemia (11) Lactic acidosis Code(s): E87.2 - ACIDOSIS Assessment/Plan 1. AF with RVR 2. CAD, angina 3. HTN 4. Hypercholesterolemia 5. Organic brain/dementia 6. Sepsis likely source 7. Acute on chronic LV failure PLAN: 1. Continue Xarelto 2. Continue Metoprolol for rate control and Prinivil 3. IV Lopressor for added rate control PRN 4. Empiric antibiotic coverage. Further plans are to follow Jerome Alfaro MD
[2018-11-13] MEDS: METOPROLOL TARTRATE 50 MG TABLET (FP) PO SCH ×2 (11:05→21:38)
[2018-11-13] MEDS: LISINOPRIL 10 MG TABLET (FP) PO SCH ×2 (11:06→21:39)
[2018-11-13] MEDS: DIVALPROEX SODIUM 250 MG TABLET E.C. PO SCH ×2 (11:06→21:38)
--- NOTE | 2018-11-13 11:17 | PN ---
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, Physician History of Present Illness: no new issues still with low grade fever - Current Medication List Current Medications: Active Medications Acetaminophen (Tylenol -) 650 mg PO Q8H PRN PRN Reason: PAIN OR FEVER Last Admin: 11/12/18 23:07 Dose: 650 mg Albuterol/Ipratropium (Duoneb -) 1 amp NEB Q4H PRN PRN Reason: ASTHMA Clonazepam (Klonopin -) 0.5 mg PO TID [facility] Last Admin: 11/13/18 06:39 Dose: 0.5 mg Divalproex Sodium (Depakote -) 250 mg PO BID [facility] Last Admin: 11/13/18 11:06 Dose: 250 mg Piperacillin Sod/Tazobactam (Sod 3.375 gm/ Dextrose) 50 mls @ 100 mls/hr IVPB Q8H-IV [facility]; Protocol Last Admin: 11/13/18 11:06 Dose: 100 mls/hr Lisinopril (Prinivil) 10 mg PO BID [facility] Last Admin: 11/13/18 11:06 Dose: 10 mg Metoprolol Tartrate (Lopressor -) 50 mg PO BID [facility] Last Admin: 11/13/18 11:05 Dose: 50 mg Metoprolol Tartrate (Lopressor Injection -) 5 mg IVPUSH Q6H PRN PRN Reason: HR ABOVE 130 Rivaroxaban (Xarelto) 20 mg PO DAILY@1800 [facility] Last Admin: 11/12/18 17:13 Dose: 20 mg - Objective Vital Signs: Vital Signs Temperature 98.0 F 11/13/18 05:48 Pulse Rate 102 H 11/13/18 05:48 Respiratory Rate 20 11/13/18 05:48 Blood Pressure 146/98 11/13/18 05:48 O2 Sat by Pulse Oximetry (%) 92 L 11/12/18 21:00 Constitutional: Yes: No Distress, Calm Cardiovascular: Yes: S1, S2 Respiratory: Yes: Regular, CTA Bilaterally Gastrointestinal: Yes: Normal Bowel Sounds, Soft Musculoskeletal: Yes: WNL Extremities: Yes: WNL Neurological: Yes: Alert, Other (dementia) Labs: CBC, BMP 11/13/18 05:30 11/13/18 05:30 INR, PTT INR 1.26 (0.83-1.09) H 11/06/18 09:38 Assessment/Plan Problem List - Problems (1) Pelvic fracture Code(s): S32.9XXA - FRACTURE OF UNSP PARTS OF LUMBOSACRAL SPINE AND PELVIS, INIT (2) Respiratory distress Code(s): R06.03 - ACUTE RESPIRATORY DISTRESS (3) Severe sepsis Code(s): A41.9 - SEPSIS, UNSPECIFIED ORGANISM; R65.20 - SEVERE SEPSIS WITHOUT SEPTIC SHOCK (4) UTI (urinary tract infection) Code(s): N39.0 - URINARY TRACT INFECTION, SITE NOT SPECIFIED Qualifiers: Urinary tract infection type: site unspecified Hematuria presence: without hematuria Qualified Code(s): N39.0 - Urinary tract infection, site not specified plan i think the patient might be aspirating continue abx consider swallow study rest as per the team
--- NOTE | 2018-11-13 12:30 | PN ---
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 Congested. CXR noted No overt difficulty eating,however, silent aspiration can not be r/o at bedside. REC:Concur with MBS r/o aspiration. Downgrade to honey thick liquid/Dys puree for now
[2018-11-13] MEDS: RIVAROXABAN 20 MG TABLET PO SCH (17:52)
[2018-11-14] MEDS ORDERED: PIPERACILLIN/TAZOBACTAM 3.375 GM VIAL IVPB ONE ×4 (02:03→17:08)
[2018-11-14] MEDS ORDERED: DEXTROSE 5%-WATER - 50 ML IVPB ONE ×4 (02:03→17:08)
[2018-11-14] MEDS: PIPERACILLIN/TAZOB 3.375 GM 3.375 GM in DEXTROSE 5%-WATER - 50 ML IVPB SCH ×3 (02:16→17:40)
[2018-11-14] MEDS: clonazePAM 0.5 MG TABLET PO SCH ×3 (05:30→22:10)
--- NOTE | 2018-11-14 10:53 | PN ---
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 (short form) - Note 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: events noted awake and alert low grade fever Vital Signs - 24 hr 11/13/18 11/13/18 11/13/18 15:00 21:00 22:00 Temperature 98.6 F 98.0 F Pulse Rate 92 H 90 Respiratory 19 20 Rate Blood Pressure 148/76 146/82 O2 Sat by Pulse 94 L Oximetry (%) 11/14/18 11/14/18 05:27 06:34 Temperature 99.2 F Pulse Rate 145 H 146 H Respiratory 20 Rate Blood Pressure 119/97 119/97 O2 Sat by Pulse Oximetry (%) Current Medications Generic Name Dose Route Start Last Admin Trade Name Freq PRN Reason Stop Dose Admin Acetaminophen 650 mg 11/11/18 14:11 11/12/18 23:07 Tylenol - PO 650 mg Q8H PRN Administration PAIN OR FEVER Albuterol/Ipratropium 1 amp 11/11/18 14:11 Duoneb - NEB Q4H PRN ASTHMA Clonazepam 0.5 mg 11/11/18 15:15 11/14/18 05:30 Klonopin - PO 0.5 mg TID [facility] Administration Divalproex Sodium 250 mg 11/11/18 22:00 11/13/18 21:38 Depakote - PO 250 mg BID [facility] Administration Piperacillin Sod/Tazobactam 50 mls @ 100 mls/hr 11/11/18 13:30 11/14/18 02:16 Sod 3.375 gm/ Dextrose IVPB 100 mls/hr Q8H-IV [facility] Administration Protocol Lisinopril 10 mg 11/11/18 22:00 11/13/18 21:39 Prinivil PO 10 mg BID [facility] Administration Metoprolol Tartrate 50 mg 11/11/18 22:00 11/13/18 21:38 Lopressor - PO 50 mg BID [facility] Administration Metoprolol Tartrate 5 mg 11/11/18 14:11 11/14/18 05:27 Lopressor Injection - IVPUSH 5 mg Q6H PRN Administration HR ABOVE 130 Rivaroxaban 20 mg 11/11/18 18:00 11/13/18 17:52 Xarelto PO 20 mg DAILY@1800 [facility] Administration S1 s2 irregular Lungs decreased, ronchi+ Abd- soft, NT no edema PLAN family prefers- comfort care dc iv fluids abx-->r/o aspiration MBS ordered increase metoprolol pt is dnr/ DNI Problem List - Problems (1) Pelvic fracture Code(s): S32.9XXA - FRACTURE OF UNSP PARTS OF LUMBOSACRAL SPINE AND PELVIS, INIT (2) Respiratory distress Code(s): R06.03 - ACUTE RESPIRATORY DISTRESS (3) Severe sepsis Code(s): A41.9 - SEPSIS, UNSPECIFIED ORGANISM; R65.20 - SEVERE SEPSIS WITHOUT SEPTIC SHOCK (4) UTI (urinary tract infection) Code(s): N39.0 - URINARY TRACT INFECTION, SITE NOT SPECIFIED Qualifiers: Urinary tract infection type: site unspecified Hematuria presence: without hematuria Qualified Code(s): N39.0 - Urinary tract infection, site not specified
--- NOTE | 2018-11-14 11:30 | PN ---
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, Physician History of Present Illness: no new issues still with low grade fever - Current Medication List Current Medications: Active Medications Acetaminophen (Tylenol -) 650 mg PO Q8H PRN PRN Reason: PAIN OR FEVER Last Admin: 11/12/18 23:07 Dose: 650 mg Albuterol/Ipratropium (Duoneb -) 1 amp NEB Q4H PRN PRN Reason: ASTHMA Clonazepam (Klonopin -) 0.5 mg PO TID [facility] Last Admin: 11/14/18 05:30 Dose: 0.5 mg Divalproex Sodium (Depakote -) 250 mg PO BID [facility] Last Admin: 11/13/18 21:38 Dose: 250 mg Piperacillin Sod/Tazobactam (Sod 3.375 gm/ Dextrose) 50 mls @ 100 mls/hr IVPB Q8H-IV [facility]; Protocol Last Admin: 11/14/18 02:16 Dose: 100 mls/hr Lisinopril (Prinivil) 5 mg PO BID [facility] Metoprolol Tartrate (Lopressor Injection -) 5 mg IVPUSH Q6H PRN PRN Reason: HR ABOVE 130 Last Admin: 11/14/18 05:27 Dose: 5 mg Metoprolol Tartrate (Lopressor -) 75 mg PO BID [facility] Rivaroxaban (Xarelto) 20 mg PO DAILY@1800 [facility] Last Admin: 11/13/18 17:52 Dose: 20 mg - Objective Vital Signs: Vital Signs Temperature 99.2 F 11/14/18 06:34 Pulse Rate 146 H 11/14/18 06:34 Respiratory Rate 20 11/14/18 06:34 Blood Pressure 119/97 11/14/18 06:34 O2 Sat by Pulse Oximetry (%) 94 L 11/13/18 21:00 Constitutional: Yes: No Distress, Calm Eyes: Yes: Conjunctiva Clear, EOM Intact Cardiovascular: Yes: S1, S2 Respiratory: Yes: Regular, CTA Bilaterally Gastrointestinal: Yes: Normal Bowel Sounds, Soft Musculoskeletal: Yes: WNL Extremities: Yes: Other Neurological: Yes: Alert, Other Psychiatric: Yes: Alert, Other Labs: CBC, BMP 11/13/18 05:30 11/13/18 05:30 INR, PTT INR 1.26 (0.83-1.09) H 11/06/18 09:38 Assessment/Plan Problem List - Problems (1) Pelvic fracture Code(s): S32.9XXA - FRACTURE OF UNSP PARTS OF LUMBOSACRAL SPINE AND PELVIS, INIT (2) Respiratory distress Code(s): R06.03 - ACUTE RESPIRATORY DISTRESS (3) Severe sepsis Code(s): A41.9 - SEPSIS, UNSPECIFIED ORGANISM; R65.20 - SEVERE SEPSIS WITHOUT SEPTIC SHOCK (4) UTI (urinary tract infection) Code(s): N39.0 - URINARY TRACT INFECTION, SITE NOT SPECIFIED Qualifiers: Urinary tract infection type: site unspecified Hematuria presence: without hematuria Qualified Code(s): N39.0 - Urinary tract infection, site not specified plan aspiration study nutrition continue iv abx rest as per team
[2018-11-14] MEDS: METOPROLOL TARTRATE 50 MG TABLET (FP) PO SCH ×2 (12:56→22:10)
[2018-11-14] MEDS: LISINOPRIL 5 MG TABLET (FP) PO SCH ×2 (12:57→22:10)
[2018-11-14] MEDS: DIVALPROEX SODIUM 250 MG TABLET E.C. PO SCH ×2 (12:57→22:10)
[2018-11-14] MEDS: ACETAMINOPHEN 325 MG TABLET (FP) PO PRN (15:54)
[2018-11-14] MEDS: RIVAROXABAN 20 MG TABLET PO SCH (19:03)
[2018-11-15] MEDS: PIPERACILLIN/TAZOB 3.375 GM 3.375 GM in DEXTROSE 5%-WATER - 50 ML IVPB SCH ×2 (02:03→16:40)
[2018-11-15] MEDS ORDERED: PIPERACILLIN/TAZOBACTAM 3.375 GM VIAL IVPB ONE ×2 (03:20→10:35)
[2018-11-15] MEDS ORDERED: DEXTROSE 5%-WATER - 50 ML IVPB ONE ×2 (03:21→10:36)
[2018-11-15] MEDS: clonazePAM 0.5 MG TABLET PO SCH ×3 (06:59→14:44)
--- NOTE | 2018-11-15 10:19 | DS ---
Physical Examination Vital Signs: Vital Signs Temperature 98.5 F 11/15/18 06:00 Pulse Rate 101 H 11/15/18 06:00 Respiratory Rate 18 11/15/18 06:00 Blood Pressure 156/78 11/15/18 06:00 O2 Sat by Pulse Oximetry (%) 96 11/14/18 21:00 Constitutional: Yes: No Distress, Calm Cardiovascular: Yes: Regular Rate and Rhythm Respiratory: Yes: Diminished Gastrointestinal: Yes: Normal Bowel Sounds, Soft. No: Tenderness Edema: No Labs: CBC, BMP 11/13/18 05:30 11/13/18 05:30 Discharge Summary Reason For Visit: UTI, RESPIRATORY DISTRESS, SEPSIS Current Active Problems Hypoxia (Acute) Pelvic fracture (Acute) Respiratory distress (Acute) Severe sepsis (Acute) UTI (urinary tract infection) (Acute) Hospital Course: Admitted for respiratory distress Was initially placed on BIPAP-- now off BIPAP and on nasal canula She was evaluated by ID, cardiology and Pulmonary started on IV antibiotics for possible pneumonia, UTI urine cultures came back positive for E coli pt on iv Zosyn had MBS yesterday-- swallow therapist advised dysphagia chopped diet pt clinically better stable for dc to NH Condition: Guarded - Instructions - Home Medications Comprehensive Discharge Medication List: Ambulatory Orders Anastrozole [Arimidex -] 1 mg PO DAILY 07/09/17 Atorvastatin Ca [Lipitor] 10 mg PO HS 07/09/17 Clonazepam 0.5 mg PO TID 07/09/17 Digoxin [Lanoxin -] 0.125 mg PO Q48H 07/09/17 Divalproex [Depakote -] 250 mg PO BID 07/09/17 Donepezil HCl 10 mg PO HS 07/09/17 Escitalopram Oxalate [Lexapro -] 20 mg PO DAILY 07/09/17 Folic Acid 1 mg PO DAILY 07/09/17 Furosemide 20 mg PO DAILY 07/09/17 Isosorbide Mononitrate [Isosorbide Mononitrate ER] 30 mg PO DAILY 07/09/17 Loratadine 10 mg PO DAILY 07/09/17 Melatonin 2 mg PO HS 07/09/17 Metoprolol Tartrate 25 mg PO BID 07/09/17 Multivitamin [Poly-Vitamin] 1 each PO DAILY 07/09/17 Omeprazole 20 mg PO DAILY 07/09/17 Polyethylene Glycol 3350 [Clearlax] 17 gm PO DAILY 07/09/17 Rivaroxaban [Xarelto -] 20 mg PO 1800 07/09/17 Zinc Sulfate 220 mg PO DAILY 07/09/17 Acetaminophen 650 mg PO Q8H PRN 07/10/17 Albuterol 2.5/Ipratropium 0.5 [Duoneb -] 1 amp NEB Q4H PRN #1 amp 07/15/17 Lisinopril [Prinivil] 5 mg PO DAILY #30 tablet 07/15/17
[2018-11-15] MEDS: DIVALPROEX SODIUM 250 MG TABLET E.C. PO SCH (10:38)
[2018-11-15] MEDS: LISINOPRIL 5 MG TABLET (FP) PO SCH (10:38)
[2018-11-15] MEDS: METOPROLOL TARTRATE 50 MG TABLET (FP) PO SCH ×2 (10:39→11:27)
[2018-11-15 10:48] VITALS: BP 131/85; PULSE 100; TEMP 98.8
--- NOTE | 2018-11-15 11:21 | PN ---
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, Physician History of Present Illness: patient stable no new issues afebrile - Current Medication List Current Medications: Active Medications Acetaminophen (Tylenol -) 650 mg PO Q8H PRN PRN Reason: PAIN OR FEVER Last Admin: 11/14/18 15:54 Dose: 650 mg Albuterol/Ipratropium (Duoneb -) 1 amp NEB Q4H PRN PRN Reason: ASTHMA Amoxicillin/Clavulanate Potassium (Augmentin - 875mg Tablet) 1 tab PO BID@0800, 1730 [facility] Clonazepam (Klonopin -) 0.5 mg PO TID [facility] Last Admin: 11/15/18 06:59 Dose: 0.5 mg Divalproex Sodium (Depakote -) 250 mg PO BID [facility] Last Admin: 11/15/18 10:38 Dose: 250 mg Lisinopril (Prinivil) 5 mg PO BID [facility] Last Admin: 11/15/18 10:38 Dose: 5 mg Metoprolol Tartrate (Lopressor Injection -) 5 mg IVPUSH Q6H PRN PRN Reason: HR ABOVE 130 Last Admin: 11/14/18 05:27 Dose: 5 mg Metoprolol Tartrate (Lopressor -) 75 mg PO BID [facility] Last Admin: 11/15/18 10:39 Dose: 75 mg Rivaroxaban (Xarelto) 20 mg PO DAILY@1800 [facility] Last Admin: 11/14/18 19:03 Dose: 20 mg - Objective Vital Signs: Vital Signs Temperature 98.8 F 11/15/18 10:00 Pulse Rate 100 H 11/15/18 10:00 Respiratory Rate 18 11/15/18 10:00 Blood Pressure 131/85 11/15/18 10:00 O2 Sat by Pulse Oximetry (%) 96 11/14/18 21:00 Constitutional: Yes: No Distress, Calm Cardiovascular: Yes: S1, S2 Respiratory: Yes: Regular, CTA Bilaterally Gastrointestinal: Yes: Normal Bowel Sounds, Soft Musculoskeletal: Yes: WNL Extremities: Yes: WNL Neurological: Yes: Alert, Other Psychiatric: Yes: Other Labs: CBC, BMP 11/13/18 05:30 11/13/18 05:30 INR, PTT INR 1.26 (0.83-1.09) H 11/06/18 09:38 Assessment/Plan Problem List - Problems (1) Pelvic fracture Code(s): S32.9XXA - FRACTURE OF UNSP PARTS OF LUMBOSACRAL SPINE AND PELVIS, INIT (2) Respiratory distress Code(s): R06.03 - ACUTE RESPIRATORY DISTRESS (3) Severe sepsis Code(s): A41.9 - SEPSIS, UNSPECIFIED ORGANISM; R65.20 - SEVERE SEPSIS WITHOUT SEPTIC SHOCK (4) UTI (urinary tract infection) Code(s): N39.0 - URINARY TRACT INFECTION, SITE NOT SPECIFIED Qualifiers: Urinary tract infection type: site unspecified Hematuria presence: without hematuria Qualified Code(s): N39.0 - Urinary tract infection, site not specified plan switched to oral abx for 3 more days nutrition rest as per the team
[2018-11-15] MEDS ORDERED: METOPROLOL TARTRATE 25 MG TABLET (FP) PO SCH ×2 (11:24→11:30)
--- NOTE | 2018-11-15 12:13 | PN ---
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 Brisk swallow without aspiration demonstrated. Suggest Speech Pathology follow pt at [place] for diet upgrade per mbs.
[2018-11-15] MEDS ORDERED: AMOX TR/POT CLAV 875MG/125MG TABLETS (FP) PO SCH (17:30)
== END 2018-11-15 15:20 | DRG 871 ==
LOC: JER 09:02 → JERBED 12:49 → J4W 21:12 → J8W 11-11 13:57
PROVIDERS: ADMIT Internal Medicine; ATTEND Internal Medicine
PROC: 5A09357 Assistance with Respiratory Ventilation, Less than 24 Consecutive Hours, Continuous Positive Airway Pressure (ICD-10-PCS; principal; 2018-11-07)
DX: A41.9 Sepsis, unspecified organism (principal); J96.01 Acute respiratory failure with hypoxia; N39.0 Urinary tract infection, site not specified; E87.2 Acidosis; I48.1 Persistent atrial fibrillation; I24.8 Other forms of acute ischemic heart disease; Z66 Do not resuscitate; R65.20 Severe sepsis without septic shock; I25.10 Atherosclerotic heart disease of native coronary artery without angina pectoris; Z79.01 Long term (current) use of anticoagulants; Z85.3 Personal history of malignant neoplasm of breast; Z90.12 Acquired absence of left breast and nipple; G30.9 Alzheimer's disease, unspecified; F02.80 Dementia in other diseases classified elsewhere, unspecified severity, without behavioral disturbance, psychotic disturbance, mood disturbance, and anxiety; E78.00 Pure hypercholesterolemia, unspecified; F09 Unspecified mental disorder due to known physiological condition; J44.9 Chronic obstructive pulmonary disease, unspecified; B96.29 Other Escherichia coli [E. coli] as the cause of diseases classified elsewhere
CPT/HCPCS: 36415; 71045-TC-FY; 74176-TC; 74230-TC-FY; 80053; 80162; 81003; 82803; 83605; 83735; 84100; 84443; 84484; 85025; 85610; 85730; 87040; 87086; 87186; 92611-GN; 93005; 93010; 93306-TC; 94640; 94660; 97161-GP; 99285-25; J0131; J7030

== ENCOUNTER 2019-04-08 10:14 | Inpatient (IN) | payer OTHER ==
[2019-04-08] MEDS ORDERED: ACETAMINOPHEN 1000 MG/100 ML VIAL (NON FORMULARY) IVPB ONE (10:33)
--- NOTE | 2019-04-08 10:51 | PDOC ---
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 upon arrival, pt was was noted febrile, but saturation was in 88% on NRB, HR 125, tachypneic to 30. History limited from pt due to her dmentia, but pt stating she wants to go home. We talked to her daughter who said she seemed ok last night, she had some chest congestion but otherwise no distress. Allergies: None reported. Past Surgical History: Left Mastectomy. Cholecystectomy (August 2016) Family History: Colon CA (uncle). Social History: Non smoker. Denies alcohol or drug use. PCP: Dr. Alexander Urban - Physicial Exam PE: 04/08/19 11:16 GENERAL: The patient is eyes closed, but arousable to voice, ao x 1, tachypneic HEAD: Normocephalic, atraumatic. EYES: extraocular movements intact, sclera anicteric, conjunctiva clear. ENT: Normal voice, Moist mucous membranes. NECK: Normal range of motion, supple LUNGS: basilar rales and rhonchi bilaterally, tachpneic HEART: tachycardic, irregular ABDOMEN: Soft, nontender, No guarding, no rebound. EXTREMITIES: Normal range of motion, no edema. NEUROLOGICAL: No facial assymetry, PSYCH: Normal mood, normal affect. SKIN: hot to touch, Dry, normal turgor, - Critical Care Time Total Critical Care Time: 35 Critical Care Statement: The care of this patient involved high complexity decision making to prevent further life threatening deterioration of the patient 's condition and/or to evaluate & treat vital organ system(s) failure or risk of failure. - Medical Decision Making 04/08/19 11:15 Upon arrival, pt was noted dnr/dni - confrimed with HCP Ilana on the phone - the pt was placed on bipap with improvement of her saturation and respiratory rate ddx - likely pna vs influenza, sepsis orderset was obtained will continue monitoring and non invasive 04/08/19 11:37 cxr noted for RUL infiltrate will start broad spectrum abx 04/08/19 14:23 pt doing well HR @ 98 Sat 97% on 40%, 03/31, rate of 16 admitted for further management of pna Heart Score/ECG Review - ECG Impressions Comment:: 04/08/19 11:18 Twelve-lead EKG was performed and reviewed by me. irregular rate and rhythm RAte of [address] ST depressions noted on lateral leads normal axis
--- NOTE | 2019-04-08 10:57 | PDOC ---
History of Present Illness - General Chief Complaint: SIRS, Suspected/Possible Stated Complaint: VOMITING BLOOD Time Seen by Provider: 04/08/19 10:35 History Source: Patient, Legal Guardian(s), Family Exam Limitations: Dementia - History of Present Illness Initial Comments: 04/08/19 10:57 Roseann Lauren is a 78F DNR/DNI confirmed with surrogate decision maker, with a history of HTN, hyperlipidemia, CAD, atrial fibrillation on Xarelto, CHF on Lasix/Digoxin, left breast CA s/p left sided mastectomy 3 years ago and Alzheimers dementia A/O x1 at baseline, presents from [facility] via EMS with fever and bloody sputum today. Patient arrived hypoxic to 80s with tachycardia and fever. Sepsis workup initiated and placed on BiPap. Patient is alert only to self and says she wants to go home. Unable to obtain further PMH from patient 2/ clinical status. [facility] records indicate patient was febrile to 101F with tachypnea to 20, normotensive. Concerned about fever and bloody sputum per records. Called patient's healthcare surrogate Ilana Wills who is her daughter. Per daughter, patient was seen by another daughter yesterday, was mildly congested but otherwise doing well. Has Alzheimer's dementia and is only alert to self at baseline. Confirmed DNR/DNI status, [facility] records only indicate DNR. Past History - Past Medical History Allergies/Adverse Reactions: Allergies Allergy/AdvReac Type Severity Reaction Status Date / Time No Known Allergies Allergy Verified 04/08/19 10:26 Home Medications: Ambulatory Orders Anastrozole [Arimidex -] 1 mg PO DAILY 07/09/17 Atorvastatin Ca [Lipitor] 10 mg PO HS 07/09/17 Clonazepam 0.5 mg PO TID 07/09/17 Divalproex [Depakote -] 250 mg PO BID 07/09/17 Donepezil HCl 10 mg PO HS 07/09/17 Escitalopram Oxalate [Lexapro -] 20 mg PO DAILY 07/09/17 Folic Acid 1 mg PO DAILY 07/09/17 Furosemide 20 mg PO DAILY 07/09/17 Isosorbide Mononitrate [Isosorbide Mononitrate ER] 30 mg PO DAILY 07/09/17 Loratadine 10 mg PO DAILY 07/09/17 Multivitamin [Poly-Vitamin] 1 each PO DAILY 07/09/17 Omeprazole 20 mg PO AC 07/09/17 Polyethylene Glycol 3350 [Clearlax] 17 gm PO DAILY 07/09/17 Rivaroxaban [Xarelto -] 20 mg PO 1800 07/09/17 Acetaminophen 650 mg PO Q8H PRN 07/10/17 Albuterol 2.5/Ipratropium 0.5 [Duoneb -] 1 amp NEB Q6H #1 amp 11/15/18 Lisinopril [Prinivil] 5 mg PO BID #60 tablet 11/15/18 Metoprolol Tartrate [Lopressor -] 75 mg PO BID #60 tablet 11/15/18 Ascorbate Calcium [Vitamin C] 500 mg PO BID 04/08/19 Miconazole Nitrate [Miconazole Nitrate -] 1 applic TP BID 04/08/19 Cancer: Yes (Breast cancer) Cardiac Disorders: Yes (CAD, CHF,AFIB) COPD: No Dementia: Yes (Alzheimer's disease) HTN: Yes Hypercholesterolemia: Yes Psychiatric Problems: Yes (DEPRESSION..) - Surgical History Appendectomy: Yes (age 4) - Psycho Social/Smoking Cessation Hx Smoking History: Unknown if ever smoked Have you smoked in the past 12 months: No Information on smoking cessation initiated: No Hx Alcohol Use: No Drug/Substance Use Hx: No Substance Use Type: None Review of Systems - Review of Systems Able to Perform ROS?: No (dementia) Comments:: 04/08/19 11:46 Patient is alert and oriented to self, but is not responding to questions regarding her symptoms. *Physical Exam - Vital Signs Last Vital Signs Temp Pulse Resp BP Pulse Ox 101.2 F H 125 H 30 H 113/69 77 L 04/08/19 10:26 04/08/19 10:26 04/08/19 10:26 04/08/19 10:26 04/08/19 10:26 - Physical Exam General Appearance: Yes: Nourished, Appropriately Dressed, Mild Distress, Obese , Other (Patient is resting in bed with non-rebreather in place, tachycardic to 112, O2 sat 85, notable difficulty breathing. Alert to self, says she wants to go home.) HEENT: positive: EOMI, TIFFANIE, Symmetrical, Hearing Grossly Normal. negative: Normal Voice (quiet voice, no wheezing), Scleral Icterus (R), Scleral Icterus (L ), Muffled/Hoarse voice Neck: positive: Supple, Other (head tilted to right side as favored position in bed). negative: Lymphadenopathy (R), Lymphadenopathy (L) Respiratory/Chest: positive: Respiratory Distress, Accessory Muscle Use, Rales ( mild rales noted to lung bases bilaterally), Rhonchi (notable to all lung adams ). negative: Decreased Breath Sounds, Wheezing Cardiovascular: positive: Irregularly Irregular. negative: Edema, Murmur Vascular Pulses: Dorsalis-Pedis (R): 1+, Doralis-Pedis (L): 1+ Gastrointestinal/Abdominal: positive: Normal Bowel Sounds, Flat, Soft. negative : Tender (patient does not grimace or withdraw to deep palpation of abdomen), Organomegaly, Distended, Guarding, Rebound Musculoskeletal: positive: Normal Inspection. negative: CVA Tenderness Extremity: positive: Normal Capillary Refill, Normal Inspection. negative: Normal Range of Motion, Tender, Coldness Integumentary: positive: Normal Color, Dry, Warm. negative: Cyanotic, Pale, Cold Neurologic: positive: Alert, Disoriented (only oriented to self, unaware of severity of illness). negative: Normal Mood/Affect, Normal Response, Facial Droop ED Treatment Course - LABORATORY CBC & Chemistry Diagram: 04/08/19 10:55 04/08/19 10:31 Medical Decision Making - Medical Decision Making 04/08/19 10:57 Roseann Lauren is a 78F DNR/DNI confirmed with surrogate decision maker, with a history of HTN, hyperlipidemia, CAD, atrial fibrillation on Xarelto, CHF on Lasix/Digoxin, left breast CA s/p left sided mastectomy 3 years ago and Alzheimers dementia A/O x1 at baseline, presents from [facility] via EMS with fever and bloody sputum today. Patient presentation is concerning for a sepsis process given positive SIRS criteria tachy to 112 and temp 102F, started sepsis evaluation including CXR, ECG, CMP, CBC, lactate, coags, UA/UC, blood cultures, 1L IV NS bolus. Most likely a PNA given hypoxia, fever, and bilatearl rhonchorus breath sounds. Has history of CHF and COPD, no evidence of BLE edema or wheezing on exam, but still considered. Given acute decompensation from last known normal yesterday, also considering influenza. Additional orders: digoxin level BNP influenza A/B rapid Started on BiPap for hypoxia to the 80s. Improvement noted to RR and oxygenation , now at O2Sat 96% on 100% FiO2 03/31 with RR 16. Will continue to monitor. 04/08/19 11:52 Labs show WBC elevated to 13, Cr 0.9 WNL from priors, no notable electrolyte abnormalities. VBG WNL. CXR shows similar poor inspiratory effort and R chin artifact from prior studies , with possible new atelectasis vs. infiltrate to RUL consistent with PNA. ECG shows atrial fibrillation with RVR, HR 112, QTc 395, has ST depressions to V4-V6 consistent with prior ECG. 04/08/19 11:57 Lactate 2.2. Started on vancomycin 1000g and Zosyn 4.5mg IV for HCAP. HR labile, increases to 120s and goes down to 100s. 04/08/19 12:45 Patient alert and oxygenation improved to 97% on BiPap 60% O2 now, speaking to me. Denies [id number], worsening breathing, chest pain, abd pain. 04/08/19 13:06 Lowering FiO2 to 50%, maintaining saturation at 97% 04/08/19 13:14 Lowering FiO2 to 40%, maintaining saturation at 97% 04/08/19 13:26 Patient requires inpatient admission for hypoxemia and sepsis meeting SIRS criteria, requires antibiotic regimen for likely HCAP PNA, and has 3 points on CURB-65 criteria placing her at severe risk of mortality. 04/08/19 14:14 [facility], admitting physician is Dr. Paniagua. Spoke to Dr. Sasha Paniagua for admission to [facility] for further PNa evaluation. Concerned about no fluids given, but patient is normotensive and has never dropped her BP below 115/90, is good to be seen on the floor. Discharge - Discharge Information Problems reviewed: Yes Clinical Impression/Diagnosis: Systemic inflammatory response syndrome (SIRS) Condition: Stable - Admission Yes - Follow up/Referral Referrals: Alexander Urban [Primary Care Provider] - - Patient Discharge Instructions - Post Discharge Activity
[2019-04-08 11:06] LABS: VENOUS PC02 45.5 mmHg (38-52); VENOUS PH 7.38 (7.31-7.41); VENOUS PO2 56.9 mmHg (28-48)
[2019-04-08 11:11] LABS: BASO % 0.3 % (0-2.0); EOS % 0.1 % (0-4.5); HEMATOCRIT 37.4 % (32.4-45.2); HEMOGLOBIN 12.3 GM/dL (10.7-15.3); LYMPH % 4.6 % (8-40); MCH 31.4 pg (25.7-33.7); MCHC 32.9 g/dl (32.0-36.0); MEAN CELL VOLUME 95.3 fl (80-96); MEAN PLT VOLUME 8.7 fl (7.5-11.1); MONO % 6.6 % (3.8-10.2); NEUT % 88.4 % (42.8-82.8); PLATELET COUNT 292 K/MM3 (134-434); RBC 3.92 M/mm3 (3.60-5.2); RDW 14.5 % (11.6-15.6); WHITE BLOOD COUNT 13.2 K/mm3 (4.0-10.0)
[2019-04-08 11:24] LABS: INR 1.69 (0.83-1.09)
[2019-04-08 11:27] LABS: ACTIVATED PTT 35.5 SECONDS (25.2-36.5)
[2019-04-08 11:37] LABS: ALBUMIN 3.1 g/dl (3.4-5.0); BLOOD UREA NITROGEN 27.1 mg/dL (7-18); CALCIUM 8.7 mg/dL (8.5-10.1); CREATININE 0.9 mg/dL (0.55-1.3); POTASSIUM 3.6 mmol/L (3.5-5.1); TOT PROT 6.7 g/dl (6.4-8.2)
[2019-04-08] MEDS ORDERED: VANCOMYCIN 1 GM in D5W (PRE-DOCKED) 1,000 MG/250 ML IVPB ONE (12:11)
[2019-04-08] MEDS ORDERED: PIPERACILLIN/TAZOB 4.5 GM 4.5 GM in DEXTROSE 5%-WATER 100 ML IVPB ONE (12:12)
[2019-04-08] MEDS ORDERED: PIPERACILLIN/TAZOB 4.5 GM 4.5 GM/100 ML BAG IVPB ONE (12:19)
[2019-04-08] MEDS ORDERED: VANCOMYCIN 1 GRAM (PRE-DOCKED) 1,000 MG/250 ML BAG IVPB ONE (12:20)
[2019-04-08 12:24] LABS: EPI CELLS 4.6 /HPF (0-5/HPF); HYALINE CASTS 26 /lpf (0-8); URINE APPEARANCE CLEAR; URINE BACTERIA 42.8 /hpf (NEGATIVE); URINE BILIRUBIN NEGATIVE (NEGATIVE); URINE COLOR DK YELLOW; URINE GLUCOSE (UA) NEGATIVE (NEGATIVE); URINE KETONE TRACE (NEGATIVE); URINE LEUK ESTERASE TRACE (NEGATIVE); URINE NITRITE NEGATIVE (NEGATIVE); URINE PROTEIN 2+ (NEGATIVE); URINE RBC 3 /hpf (0-4); URINE WBC 13 /hpf (0-5)
--- NOTE | 2019-04-08 13:39 | HP ---
CHIEF COMPLAINT: PCP: HISTORY OF PRESENT ILLNESS: This is a 78 year old female with a history of HTN, hyperlipidemia, CAD, atrial fibrillation on Xarelto, CHF on Lasix/Digoxin, left breast CA s/p left sided mastectomy 3 years ago and Alzheimers dementia A/O x1 at baseline, who was sent from [facility] via EMS with fever and bloody sputum today.Patient arrived hypoxic to 80s with tachycardia and fever. Pt was given Zoyn,Vanco and Tylenol in ER and pt was placed ER course was notable for: (1) [id number], HR 125 , R 30 , lactic acid 2.2 (2) O2 st 77% (3)CxR: questionable atelectasis vs pneumonia Recent Travel: PAST MEDICAL HISTORY: PAST SURGICAL HISTORY: Social History: Smoking: Alcohol: Drugs: Allergies No Known Allergies Allergy (Verified 04/08/19 10:26) HOME MEDICATIONS: Home Medications Medication Instructions Recorded Anastrozole [Arimidex -] 1 mg PO DAILY 07/09/17 Atorvastatin Ca [Lipitor] 10 mg PO HS 07/09/17 Clonazepam 0.5 mg PO TID 07/09/17 Divalproex [Depakote -] 250 mg PO BID 07/09/17 Donepezil HCl 10 mg PO HS 07/09/17 Escitalopram Oxalate [Lexapro -] 20 mg PO DAILY 07/09/17 Folic Acid 1 mg PO DAILY 07/09/17 Furosemide 20 mg PO DAILY 07/09/17 Isosorbide Mononitrate [Isosorbide 30 mg PO DAILY 07/09/17 Mononitrate ER] Loratadine 10 mg PO DAILY 07/09/17 Multivitamin [Poly-Vitamin] 1 each PO DAILY 07/09/17 Omeprazole 20 mg PO DAILY 07/09/17 Polyethylene Glycol 3350 [Clearlax] 17 gm PO DAILY 07/09/17 Rivaroxaban [Xarelto -] 20 mg PO 1800 07/09/17 Acetaminophen 650 mg PO Q8H PRN 07/10/17 Albuterol 2.5/Ipratropium 0.5 1 amp NEB Q4H PRN #20 amp 11/15/18 [Duoneb -] Albuterol 2.5/Ipratropium 0.5 1 amp NEB Q6H #1 amp 11/15/18 [Duoneb -] Amoxicillin/Potassium Clav 1 each PO BID #6 tablet 11/15/18 [Augmentin 500-125 Tablet] Lisinopril [Prinivil] 5 mg PO BID #60 tablet 11/15/18 Metoprolol Tartrate [Lopressor -] 75 mg PO BID #60 tablet 11/15/18 REVIEW OF SYSTEMS CONSTITUTIONAL: Absent: fever, chills, diaphoresis, generalized weakness, malaise, loss of appetite, weight change HEENT: Absent: rhinorrhea, nasal congestion, throat pain, throat swelling, difficulty swallowing, mouth swelling, ear pain, eye pain, visual changes CARDIOVASCULAR: Absent: chest pain, syncope, palpitations, irregular heart rate, lightheadedness , peripheral edema RESPIRATORY: Absent: cough, shortness of breath, dyspnea with exertion, orthopnea, wheezing, stridor, hemoptysis GASTROINTESTINAL: Absent: abdominal pain, abdominal distension, nausea, vomiting, diarrhea, constipation, melena, hematochezia GENITOURINARY: Absent: dysuria, frequency, urgency, hesitancy, hematuria, flank pain, genital pain MUSCULOSKELETAL: Absent: myalgia, arthralgia, joint swelling, back pain, neck pain SKIN: Absent: rash, itching, pallor HEMATOLOGIC/IMMUNOLOGIC: Absent: easy bleeding, easy bruising, lymphadenopathy, frequent infections ENDOCRINE: Absent: unexplained weight gain, unexplained weight loss, heat intolerance, cold intolerance NEUROLOGIC: Absent: headache, focal weakness or paresthesias, dizziness, unsteady gait, seizure, mental status changes, bladder or bowel incontinence PSYCHIATRIC: Absent: anxiety, depression, suicidal or homicidal ideation, hallucinations. PHYSICAL EXAMINATION Vital Signs - 24 hr 04/08/19 04/08/19 04/08/19 10:26 11:00 12:44 Temperature 101.2 F H 100.5 F H Pulse Rate 125 H Respiratory 30 H Rate Blood Pressure 113/69 O2 Sat by Pulse 77 L 94 L Oximetry (%) GENERAL: Awake, alert, and fully oriented, in no acute distress. HEAD: Normal with no signs of trauma. EYES: Pupils equal, round and reactive to light, extraocular movements intact, sclera anicteric, conjunctiva clear. No lid lag. EARS, NOSE, THROAT: Ears normal, nares patent, oropharynx clear without exudates. Moist mucous membranes. NECK: Normal range of motion, supple without lymphadenopathy, JVD, or masses. LUNGS: Breath sounds equal, clear to auscultation bilaterally. No wheezes, and no crackles. No accessory muscle use. HEART: Regular rate and rhythm, normal S1 and S2 without murmur, rub or gallop. ABDOMEN: Soft, nontender, not distended, normoactive bowel sounds, no guarding, no rebound, no masses. No hepatomegaly or splenomegaly. MUSCULOSKELETAL: Normal range of motion at all joints. No bony deformities or tenderness. No CVA tenderness. UPPER EXTREMITIES: 2+ pulses, warm, well-perfused. No cyanosis. No clubbing. No peripheral edema. LOWER EXTREMITIES: 2+ pulses, warm, well-perfused. No calf tenderness. No peripheral edema. NEUROLOGICAL: Cranial nerves II-XII intact. Normal speech. Normal gait. PSYCHIATRIC: Cooperative. Good eye contact. Appropriate mood and affect. SKIN: Warm, dry, normal turgor, no rashes or lesions noted, normal capillary refill. Laboratory Results - last 24 hr 04/08/19 04/08/19 04/08/19 10:31 10:55 10:55 WBC 13.2 H RBC 3.92 Hgb 12.3 Hct 37.4 D MCV 95.3 MCH 31.4 MCHC 32.9 RDW 14.5 Plt Count 292 MPV 8.7 D Absolute Neuts (auto) 11.7 H Neutrophils % 88.4 H D Lymphocytes % 4.6 L D Monocytes % 6.6 Eosinophils % 0.1 D Basophils % 0.3 Nucleated RBC % 0 PT with INR 20.00 H INR 1.69 H PTT (Actin FS) 35.5 VBG pH POC VBG pCO2 POC VBG pO2 VBG HCO3 VBG O2 Sat (Christophe) VBG Base Excess Sodium 141 Potassium 3.6 Chloride 107 Carbon Dioxide 26 Anion Gap 8 BUN 27.1 H Creatinine 0.9 Est GFR (CKD-EPI)AfAm 70.48 Est GFR (CKD-EPI)NonAf 60.81 Random Glucose 112 H Lactic Acid Calcium 8.7 Total Bilirubin 1.0 AST 42 H ALT 34 Alkaline Phosphatase 127 H Troponin I 0.30 H Total Protein 6.7 Albumin 3.1 L Urine Color Urine Appearance Urine pH Ur Specific [place] Urine Protein Urine Glucose (UA) Urine Ketones Urine Blood Urine Nitrite Urine Bilirubin Urine Urobilinogen Ur Leukocyte Esterase Urine WBC (Auto) Urine RBC (Auto) Urine Casts (Auto) U Epithel Cells (Auto) Urine Bacteria (Auto) 04/08/19 04/08/19 04/08/19 10:55 10:55 11:57 WBC RBC Hgb Hct MCV MCH MCHC RDW Plt Count MPV Absolute Neuts (auto) Neutrophils % Lymphocytes % Monocytes % Eosinophils % Basophils % Nucleated RBC % PT with INR INR PTT (Actin FS) VBG pH 7.38 POC VBG pCO2 45.5 POC VBG pO2 56.9 H VBG HCO3 26.0 VBG O2 Sat (Christophe) 86.2 H VBG Base Excess 1.0 Sodium Potassium Chloride Carbon Dioxide Anion Gap BUN Creatinine Est GFR (CKD-EPI)AfAm Est GFR (CKD-EPI)NonAf Random Glucose Lactic Acid 2.2 H* Calcium Total Bilirubin AST ALT Alkaline Phosphatase Troponin I Total Protein Albumin Urine Color Dk yellow Urine Appearance Clear Urine pH 5.0 Ur Specific [place] 1.033 Urine Protein 2+ H Urine Glucose (UA) Negative Urine Ketones Trace H Urine Blood Trace Urine Nitrite Negative Urine Bilirubin Negative Urine Urobilinogen 1.0 Ur Leukocyte Esterase Trace Urine WBC (Auto) 13 Urine RBC (Auto) 3 Urine Casts (Auto) 26 U Epithel Cells (Auto) 4.6 Urine Bacteria (Auto) 42.8 ASSESSMENT/PLAN: Code status : DNR/DNI Visit type - Emergency Visit Emergency Visit: Yes Care time: The patient presented to the Emergency Department on the above date and was hospitalized for further evaluation of their emergent condition. - New Patient This patient is new to me today: Yes Date on this admission: 04/08/19 - Critical Care Critical Care patient: No
[2019-04-08 13:42] LABS: N-TERMINAL BNP 6521.5 pg/ml (5-450)
--- NOTE | 2019-04-08 22:58 | HOSP ---
Subjective - Review of Symptoms Events since last encounter: Hospitalist Encounter Notified by the primary RN, that the patient's BP was elevated and there were no med orders. Also that the Troponin I was elevated. Arrived to bedside, pt has Dementia, patient's daughter Nadege is at bedside. Plan Stat EKG Review [facility] med reconciliation Physical Examination Vital Signs: Vital Signs Temperature 100.2 F H 04/08/19 17:10 Pulse Rate 109 H 04/08/19 15:47 Respiratory Rate 20 04/08/19 15:47 Blood Pressure 121/81 04/08/19 15:47 O2 Sat by Pulse Oximetry (%) 97 04/08/19 21:04 Constitutional: Yes: Other (Agitated) Eyes: Yes: PERRL, Other (conjunctiva injected with yellow discharge to inner and outer canthus mucousa dry) HENT: Yes: WNL, Atraumatic, Normocephalic Neck: Yes: WNL, Supple, Trachea Midline Cardiovascular: Yes: Tachycardia, Pulse Irregular, S1, S2 Respiratory: Yes: Diminished, On BiPap, Rhonchi Gastrointestinal: Yes: WNL, Normal Bowel Sounds, Soft Renal/: Yes: Incontinence Breast(s): Yes: Left (mastectomy), Right Edema: No Peripheral Pulses WNL: Yes Neurological: Yes: Confusion (at baseline) ...Motor Strength: WNL Psychiatric: Yes: Agitated Labs: CBC, BMP 04/08/19 10:55 04/08/19 10:31 Laboratory Results - last 24 hr 04/08/19 04/08/19 04/08/19 10:31 10:55 10:55 WBC 13.2 H RBC 3.92 Hgb 12.3 Hct 37.4 D MCV 95.3 MCH 31.4 MCHC 32.9 RDW 14.5 Plt Count 292 MPV 8.7 D Absolute Neuts (auto) 11.7 H Neutrophils % 88.4 H D Lymphocytes % 4.6 L D Monocytes % 6.6 Eosinophils % 0.1 D Basophils % 0.3 Nucleated RBC % 0 PT with INR 20.00 H INR 1.69 H PTT (Actin FS) 35.5 VBG pH POC VBG pCO2 POC VBG pO2 VBG HCO3 VBG O2 Sat (Christophe) VBG Base Excess Sodium 141 Potassium 3.6 Chloride 107 Carbon Dioxide 26 Anion Gap 8 BUN 27.1 H Creatinine 0.9 Est GFR (CKD-EPI)AfAm 70.48 Est GFR (CKD-EPI)NonAf 60.81 Random Glucose 112 H Lactic Acid Calcium 8.7 Total Bilirubin 1.0 AST 42 H ALT 34 Alkaline Phosphatase 127 H Troponin I 0.30 H B-Natriuretic Peptide 6521.5 H Total Protein 6.7 Albumin 3.1 L Urine Color Urine Appearance Urine pH Ur Specific [place] Urine Protein Urine Glucose (UA) Urine Ketones Urine Blood Urine Nitrite Urine Bilirubin Urine Urobilinogen Ur Leukocyte Esterase Urine WBC (Auto) Urine RBC (Auto) Urine Casts (Auto) U Pathogenic Cast Auto U Epithel Cells (Auto) Urine Bacteria (Auto) Influenza A (Rapid) Influenza B (Rapid) 04/08/19 04/08/19 04/08/19 10:55 10:55 11:57 WBC RBC Hgb Hct MCV MCH MCHC RDW Plt Count MPV Absolute Neuts (auto) Neutrophils % Lymphocytes % Monocytes % Eosinophils % Basophils % Nucleated RBC % PT with INR INR PTT (Actin FS) VBG pH 7.38 POC VBG pCO2 45.5 POC VBG pO2 56.9 H VBG HCO3 26.0 VBG O2 Sat (Christophe) 86.2 H VBG Base Excess 1.0 Sodium Potassium Chloride Carbon Dioxide Anion Gap BUN Creatinine Est GFR (CKD-EPI)AfAm Est GFR (CKD-EPI)NonAf Random Glucose Lactic Acid 2.2 H* Calcium Total Bilirubin AST ALT Alkaline Phosphatase Troponin I B-Natriuretic Peptide Total Protein Albumin Urine Color Dk yellow Urine Appearance Clear Urine pH 5.0 Ur Specific [place] 1.033 Urine Protein 2+ H Urine Glucose (UA) Negative Urine Ketones Trace H Urine Blood Trace Urine Nitrite Negative Urine Bilirubin Negative Urine Urobilinogen 1.0 Ur Leukocyte Esterase Trace Urine WBC (Auto) 13 Urine RBC (Auto) 3 Urine Casts (Auto) 26 U Pathogenic Cast Auto None seen U Epithel Cells (Auto) 4.6 Urine Bacteria (Auto) 42.8 Influenza A (Rapid) Influenza B (Rapid) 04/08/19 04/08/19 04/08/19 14:33 17:00 19:59 WBC RBC Hgb Hct MCV MCH MCHC RDW Plt Count MPV Absolute Neuts (auto) Neutrophils % Lymphocytes % Monocytes % Eosinophils % Basophils % Nucleated RBC % PT with INR INR PTT (Actin FS) VBG pH POC VBG pCO2 POC VBG pO2 VBG HCO3 VBG O2 Sat (Christophe) VBG Base Excess Sodium Potassium Chloride Carbon Dioxide Anion Gap BUN Creatinine Est GFR (CKD-EPI)AfAm Est GFR (CKD-EPI)NonAf Random Glucose Lactic Acid 1.8 Calcium Total Bilirubin AST ALT Alkaline Phosphatase Troponin I 0.90 H* B-Natriuretic Peptide Total Protein Albumin Urine Color Urine Appearance Urine pH Ur Specific [place] Urine Protein Urine Glucose (UA) Urine Ketones Urine Blood Urine Nitrite Urine Bilirubin Urine Urobilinogen Ur Leukocyte Esterase Urine WBC (Auto) Urine RBC (Auto) Urine Casts (Auto) U Pathogenic Cast Auto U Epithel Cells (Auto) Urine Bacteria (Auto) Influenza A (Rapid) Negative Influenza B (Rapid) Negative Intake & Output 04/06/19 04/07/19 04/08/19 04/09/19 23:59 23:59 23:59 23:59 Weight 60.328 kg Current Medications Generic Name Dose Route Start Last Admin Trade Name Freq PRN Reason Stop Dose Admin Albuterol/Ipratropium 1 amp 04/08/19 23:00 Duoneb - NEB RQID [facility] Anastrozole 1 mg 04/09/19 10:00 Arimidex - PO DAILY [facility] Atorvastatin Calcium 10 mg 04/08/19 22:00 Lipitor - PO HS [facility] Divalproex Sodium 250 mg 04/09/19 10:00 Depakote Sprinkle Caps - PO BID [facility] Donepezil HCl 10 mg 04/09/19 22:00 Aricept - PO HS [facility] Escitalopram Oxalate 20 mg 04/09/19 10:00 Lexapro - PO DAILY [facility] Piperacillin Sod/Tazobactam 100 mls @ 200 mls/hr 04/09/19 02:00 Sod 4.5 gm/ Dextrose IVPB Q8H-IV [facility] Protocol Isosorbide Mononitrate 30 mg 04/09/19 10:00 Imdur - PO DAILY [facility] Lisinopril 5 mg 04/08/19 23:00 Prinivil PO BID [facility] Metoprolol Tartrate 75 mg 04/08/19 23:00 Lopressor - PO BID [facility] Miconazole Nitrate 1 applic 04/09/19 10:00 Miconazole Nitrate TP BID [facility] Non-Formulary Medication 0.5 mg 04/09/19 06:00 Clonazepam [Clonazepam] PO TID [facility] Ofloxacin 2 drop 04/09/19 23:11 Ocuflox 0.3% Eye Drops - OU Q4HWA [facility] Pantoprazole Sodium 40 mg 04/09/19 10:00 Protonix Iv IVPUSH DAILY [facility] Rivaroxaban 20 mg 04/09/19 18:00 Xarelto PO 1800 [facility] Hospitalist Encounter Assessment: This is a 78 y/o woman from [facility] with a PMHx of Dementia, Dysphagia, COPD , Asthma, Pneumonia, Diastolic CHF, ASHD, Afib (on Xarelto), Angina, HTN, HLD, GERD, Anxiety, UTI, Insomnia. Admitted for Sepsis, Pneumonia Plan: Cardiology consult for Elevated Troponins Continue ABX for Sepsis, HAP ID Consult Continue home meds Dysphagia Precautions Outcome: EKG reviewed- Afib RVR [address] and T wave abnormality, TWI less pronounced in Lead I, II compared to initial EKG done today. Troponin I 0.90 possibly due to Sepsis, Pneumonia 23:15- Spoke with patient's daughter Ilana (HCP), who confirmed that the patient is a DNR/DNI. Per Ilana, she indicated she had discussed this earlier with the ED Resident. Patient's daughter, Nadege was at bedside, who signed DNR /DNI with Ilana's verbal permission.
--- NOTE | 2019-04-08 23:10 | HP ---
Admitting History and Physical - Primary Care Physician PCP: Sasha Paniagua ([facility]) - Admission Chief Complaint: Fever, Bloody Sputum History of Present Illness: This is a 78 y/o woman from [facility] with a PMHx of Dementia, Dysphagia, COPD , Asthma, Pneumonia, Diastolic CHF, ASHD, Afib (on Xarelto), Angina, HTN, HLD, GERD, Breast Ca s/p L- Mastectomy, Anxiety, UTI, Insomnia. Who presents to the ED with fever, and bloody sputum. Patient has Dementia and is unable to provide HPI. Patient's daughter Nadege was at bedside. Per the ED records: Patient arrived hypoxic to 80s with tachycardia and fever. Sepsis workup initiated and patient was placed on BiPap. Patient is alert only to self and says she wants to go home. Unable to obtain further PMH from patient 2/2 clinical status. [facility] records indicate patient was febrile to 101F with tachypnea to 20, normotensive. Concerned about fever and bloody sputum per records. Called patient's healthcare surrogate Ilana Wills who is her daughter. Per daughter, patient was seen by another daughter yesterday, was mildly congested but otherwise doing well. Has Alzheimer's dementia and is only alert to self at baseline. Confirmed DNR/DNI status, [facility] records only indicate DNR. History Source: Family Member, Transfer Record Limitations to Obtaining History: Dementia - Past Medical History [employer]IC: Yes: Dementia Cardiovascular: Yes: AFIB, CHF, HTN, Hyperlipdemia, Other (ASHD) Pulmonary: Yes: Asthma, COPD, Pneumonia Gastrointestinal: Yes: GERD, Other (Appendectomy at age 4 and, reexploration, laparotomy 5 years ago) Hepatobiliary: Yes: Cholecystitis (son gives h/o cholecystititis in past) Psych: Yes: Anxiety - Past Surgical History Past Surgical History: Yes: Appendectomy, Mastectomy (left sided) - Advance Directives Advance Directives: Yes: Health Care Proxy, DNR (DNI) - Smoking History Smoking history: Unknown if ever smoked Have you smoked in the past 12 months: No - Alcohol/Substance Use Hx Alcohol Use: No History of Substance Use: reports: None - Social History Usual Living Arrangement: Yes: [facility] Do you think of yourself as: Other (unable to answer 2/2 Dementia) ADL: Support Services History of Recent Travel: No Home Medications - Allergies Allergies/Adverse Reactions: Allergies Allergy/AdvReac Type Severity Reaction Status Date / Time No Known Allergies Allergy Verified 04/08/19 10:26 - Home Medications Home Medications: Ambulatory Orders Anastrozole [Arimidex -] 1 mg PO DAILY 07/09/17 Atorvastatin Ca [Lipitor] 10 mg PO HS 07/09/17 Clonazepam 0.5 mg PO TID 07/09/17 Divalproex [Depakote -] 250 mg PO BID 07/09/17 Donepezil HCl 10 mg PO HS 07/09/17 Escitalopram Oxalate [Lexapro -] 20 mg PO DAILY 07/09/17 Folic Acid 1 mg PO DAILY 07/09/17 Furosemide 20 mg PO DAILY 07/09/17 Isosorbide Mononitrate [Isosorbide Mononitrate ER] 30 mg PO DAILY 07/09/17 Loratadine 10 mg PO DAILY 07/09/17 Multivitamin [Poly-Vitamin] 1 each PO DAILY 07/09/17 Omeprazole 20 mg PO AC 07/09/17 Polyethylene Glycol 3350 [Clearlax] 17 gm PO DAILY 07/09/17 Rivaroxaban [Xarelto -] 20 mg PO 1800 07/09/17 Acetaminophen 650 mg PO Q8H PRN 07/10/17 Albuterol 2.5/Ipratropium 0.5 [Duoneb -] 1 amp NEB Q6H #1 amp 11/15/18 Lisinopril [Prinivil] 5 mg PO BID #60 tablet 11/15/18 Metoprolol Tartrate [Lopressor -] 75 mg PO BID #60 tablet 11/15/18 Ascorbate Calcium [Vitamin C] 500 mg PO BID 04/08/19 Miconazole Nitrate [Miconazole Nitrate -] 1 applic TP BID 04/08/19 Family Medical History Family History: Unable to Obtain Review of Systems Unable to obtain ROS, reason: Dementia Physical Examination Vital Signs: Vital Signs Temperature 100.2 F H 04/08/19 17:10 Pulse Rate 109 H 04/08/19 15:47 Respiratory Rate 20 04/08/19 15:47 Blood Pressure 121/81 04/08/19 15:47 O2 Sat by Pulse Oximetry (%) 97 04/08/19 21:04 Constitutional: Yes: Other (Agitated) Eyes: Yes: PERRL, Other (Conjunctiva injected with yellow discharge to inner, outer canthus bilaterally) HENT: Yes: WNL, Atraumatic, Normocephalic Neck: Yes: WNL, Supple, Trachea Midline Cardiovascular: Yes: Tachycardia, Pulse Irregular, S1, S2 Respiratory: Yes: Diminished, On BiPap, Rhonchi Gastrointestinal: Yes: WNL, Normal Bowel Sounds, Soft Renal/: Yes: Incontinence Breast(s): Yes: Left (Mastectomy) Edema: No Peripheral Pulses WNL: Yes Neurological: Yes: Confusion (at baseline) Psychiatric: Yes: Agitated Labs: CBC, BMP 04/08/19 10:55 04/08/19 10:31 Laboratory Results - last 24 hr 04/08/19 04/08/19 04/08/19 10:31 10:55 10:55 WBC 13.2 H RBC 3.92 Hgb 12.3 Hct 37.4 D MCV 95.3 MCH 31.4 MCHC 32.9 RDW 14.5 Plt Count 292 MPV 8.7 D Absolute Neuts (auto) 11.7 H Neutrophils % 88.4 H D Lymphocytes % 4.6 L D Monocytes % 6.6 Eosinophils % 0.1 D Basophils % 0.3 Nucleated RBC % 0 PT with INR 20.00 H INR 1.69 H PTT (Actin FS) 35.5 Anticoagulation Therapy VBG pH POC VBG pCO2 POC VBG pO2 VBG HCO3 VBG O2 Sat (Christophe) VBG Base Excess O2 Delivery Device Oxygen Flow Rate Vent Mode Vent Rate Mechanical Rate Pressure Support Vent Sodium 141 Potassium 3.6 Chloride 107 Carbon Dioxide 26 Anion Gap 8 BUN 27.1 H Creatinine 0.9 Est GFR (CKD-EPI)AfAm 70.48 Est GFR (CKD-EPI)NonAf 60.81 Random Glucose 112 H Lactic Acid Calcium 8.7 Total Bilirubin 1.0 AST 42 H ALT 34 Alkaline Phosphatase 127 H Troponin I 0.30 H B-Natriuretic Peptide 6521.5 H Total Protein 6.7 Albumin 3.1 L Urine Color Urine Appearance Urine pH Ur Specific [place] Urine Protein Urine Glucose (UA) Urine Ketones Urine Blood Urine Nitrite Urine Bilirubin Urine Urobilinogen Ur Leukocyte Esterase Urine WBC (Auto) Urine RBC (Auto) Urine Casts (Auto) U Pathogenic Cast Auto U Epithel Cells (Auto) Urine Bacteria (Auto) Influenza A (Rapid) Influenza B (Rapid) 04/08/19 04/08/19 04/08/19 10:55 10:55 11:57 WBC RBC Hgb Hct MCV MCH MCHC RDW Plt Count MPV Absolute Neuts (auto) Neutrophils % Lymphocytes % Monocytes % Eosinophils % Basophils % Nucleated RBC % PT with INR INR PTT (Actin FS) Anticoagulation Therapy VBG pH 7.38 POC VBG pCO2 45.5 POC VBG pO2 56.9 H VBG HCO3 26.0 VBG O2 Sat (Christophe) 86.2 H VBG Base Excess 1.0 O2 Delivery Device Oxygen Flow Rate Vent Mode Vent Rate Mechanical Rate Pressure Support Vent Sodium Potassium Chloride Carbon Dioxide Anion Gap BUN Creatinine Est GFR (CKD-EPI)AfAm Est GFR (CKD-EPI)NonAf Random Glucose Lactic Acid 2.2 H* Calcium Total Bilirubin AST ALT Alkaline Phosphatase Troponin I B-Natriuretic Peptide Total Protein Albumin Urine Color Dk yellow Urine Appearance Clear Urine pH 5.0 Ur Specific [place] 1.033 Urine Protein 2+ H Urine Glucose (UA) Negative Urine Ketones Trace H Urine Blood Trace Urine Nitrite Negative Urine Bilirubin Negative Urine Urobilinogen 1.0 Ur Leukocyte Esterase Trace Urine WBC (Auto) 13 Urine RBC (Auto) 3 Urine Casts (Auto) 26 U Pathogenic Cast Auto None seen U Epithel Cells (Auto) 4.6 Urine Bacteria (Auto) 42.8 Influenza A (Rapid) Influenza B (Rapid) 04/08/19 04/08/19 04/08/19 14:33 17:00 19:59 WBC RBC Hgb Hct MCV MCH MCHC RDW Plt Count MPV Absolute Neuts (auto) Neutrophils % Lymphocytes % Monocytes % Eosinophils % Basophils % Nucleated RBC % PT with INR INR PTT (Actin FS) Anticoagulation Therapy VBG pH POC VBG pCO2 POC VBG pO2 VBG HCO3 VBG O2 Sat (Christophe) VBG Base Excess O2 Delivery Device Oxygen Flow Rate Vent Mode Vent Rate Mechanical Rate Pressure Support Vent Sodium Potassium Chloride Carbon Dioxide Anion Gap BUN Creatinine Est GFR (CKD-EPI)AfAm Est GFR (CKD-EPI)NonAf Random Glucose Lactic Acid 1.8 Calcium Total Bilirubin AST ALT Alkaline Phosphatase Troponin I 0.90 H* B-Natriuretic Peptide Total Protein Albumin Urine Color Urine Appearance Urine pH Ur Specific [place] Urine Protein Urine Glucose (UA) Urine Ketones Urine Blood Urine Nitrite Urine Bilirubin Urine Urobilinogen Ur Leukocyte Esterase Urine WBC (Auto) Urine RBC (Auto) Urine Casts (Auto) U Pathogenic Cast Auto U Epithel Cells (Auto) Urine Bacteria (Auto) Influenza A (Rapid) Negative Influenza B (Rapid) Negative 04/09/19 02:05 WBC RBC Hgb Hct MCV MCH MCHC RDW Plt Count MPV Absolute Neuts (auto) Neutrophils % Lymphocytes % Monocytes % Eosinophils % Basophils % Nucleated RBC % PT with INR INR PTT (Actin FS) Anticoagulation Therapy No Result Required. VBG pH POC VBG pCO2 POC VBG pO2 VBG HCO3 VBG O2 Sat (Christophe) VBG Base Excess O2 Delivery Device No Result Required. Oxygen Flow Rate No Result Required. Vent Mode No Result Required. Vent Rate No Result Required. Mechanical Rate No Result Required. Pressure Support Vent No Result Required. Sodium Potassium Chloride Carbon Dioxide Anion Gap BUN Creatinine Est GFR (CKD-EPI)AfAm Est GFR (CKD-EPI)NonAf Random Glucose Lactic Acid Calcium Total Bilirubin AST ALT Alkaline Phosphatase Troponin I B-Natriuretic Peptide Total Protein Albumin Urine Color Urine Appearance Urine pH Ur Specific [place] Urine Protein Urine Glucose (UA) Urine Ketones Urine Blood Urine Nitrite Urine Bilirubin Urine Urobilinogen Ur Leukocyte Esterase Urine WBC (Auto) Urine RBC (Auto) Urine Casts (Auto) U Pathogenic Cast Auto U Epithel Cells (Auto) Urine Bacteria (Auto) Influenza A (Rapid) Influenza B (Rapid) Intake & Output 04/06/19 04/07/19 04/08/19 04/09/19 23:59 23:59 23:59 23:59 Intake Total 10 Balance 10 Weight 60.328 kg Current Medications Generic Name Dose Route Start Last Admin Trade Name Freq PRN Reason Stop Dose Admin Albuterol/Ipratropium 1 amp 04/08/19 23:00 Duoneb - NEB RQID [facility] Anastrozole 1 mg 04/09/19 10:00 Arimidex - PO DAILY [facility] Atorvastatin Calcium 10 mg 04/08/19 22:00 04/09/19 00:45 Lipitor - PO 10 mg HS [facility] Administration Clonazepam 0.5 mg 04/09/19 06:00 Klonopin - PO TID [facility] Divalproex Sodium 250 mg 04/09/19 10:00 Depakote Sprinkle Caps - PO BID [facility] Donepezil HCl 10 mg 04/09/19 22:00 Aricept - PO HS [facility] Escitalopram Oxalate 20 mg 04/09/19 10:00 Lexapro - PO DAILY [facility] Piperacillin Sod/Tazobactam 100 mls @ 200 mls/hr 04/09/19 02:00 Sod 4.5 gm/ Dextrose IVPB Q8H-IV [facility] Protocol Piperacillin Sod/Tazobactam 100 mls @ 100 mls/hr 04/09/19 02:00 Sod 4.5 gm/ Dextrose IVPB 04/10/19 01:59 Q8H-IV [place] Isosorbide Mononitrate 30 mg 04/09/19 10:00 Imdur - PO DAILY [place] Lisinopril 5 mg 04/08/19 23:00 04/09/19 00:46 Prinivil PO 5 mg BID [place] Administration Metoprolol Tartrate 75 mg 04/08/19 23:00 04/09/19 00:45 Lopressor - PO 75 mg BID [place] Administration Miconazole Nitrate 1 applic 04/09/19 10:00 Miconazole Nitrate TP BID [facility] Ofloxacin 2 drop 04/09/19 23:11 Ocuflox 0.3% Eye Drops - OU Q4HWA [place] Pantoprazole Sodium 40 mg 04/09/19 10:00 Protonix Iv IVPUSH DAILY [place] Rivaroxaban 20 mg 04/09/19 18:00 Xarelto PO 1800 [facility] Imaging - Results Chest X-ray: Report Reviewed, Image Reviewed EKG: Image Reviewed Problem List - Problems (1) Severe sepsis Assessment/Plan: Likely secondary to Pneumonia CURB-65 Score 4 qSOFA- 2 Sepsis Criteria Met V: T Max 101.2, P 125, R 30, Spo2 77%, Lactic Acid 2.2 Blood Cultures-pending Urine Culture-pending Will add Urine Legionella Rapid Influenza A+B- neg Chest Xray report- ? atelectasis or infiltrate right upper lobe Fluid resuscitation given in ED Vancomycin and Zosyn given in ED, will continue Appreciate ID consult Patient placed on Bipap, titrate settings VBG reviewed ABG-pending Aspiration precautions Maintain MAP> 65 Monitor CBC, BMP Problems reviewed: Yes Code(s): A41.9 - SEPSIS, UNSPECIFIED ORGANISM; R65.20 - SEVERE SEPSIS WITHOUT SEPTIC SHOCK (2) Acute respiratory failure with hypoxia Assessment/Plan: Likely secondary to Pneumonia vs COPD/Asthma Exacerbation Continue Bipap O2 Appreciate Pulmonology consult Duoneb prn Chest Xray reviewed Aspiration Precautions Problems reviewed: Yes Code(s): J96.01 - ACUTE RESPIRATORY FAILURE WITH HYPOXIA (3) Pneumonia Assessment/Plan: CURB-65 Score 4 Chest Xray- ? atelectasis, infiltrate RUL Continue Vancomycin, Zosyn Appreciate ID consult Monitor CBC, BMP Monitor vitals Urine Legionella Blood Cultures-pending Urine Culture-pending Problems reviewed: Yes Code(s): J18.9 - PNEUMONIA, UNSPECIFIED ORGANISM Qualifiers: Pneumonia type: aspiration pneumonia (4) Lactic acidosis Assessment/Plan: Likely secondary to Sepsis, Pneumonia Fluid Bolus given in ED Lactate improved 1.8 Problems reviewed: Yes Code(s): E87.2 - ACIDOSIS (5) Elevated troponin Assessment/Plan: Likely due to demand ischemia from Sepsis Serial Enzymes EKGs x2 reviewed Appreciate Cardiology consult Problems reviewed: Yes Code(s): R79.89 - OTHER SPECIFIED ABNORMAL FINDINGS OF BLOOD CHEMISTRY (6) Atrial fibrillation with RVR Assessment/Plan: [id number] 5 EKG- Afib with RVR Continue Lopressor, Xarelto Monitor CBC, signs of bleeding closely Continue cardiac monitoring Problems reviewed: Yes Code(s): I48.91 - UNSPECIFIED ATRIAL FIBRILLATION (7) GERD (gastroesophageal reflux disease) Assessment/Plan: stable Currently on Pepcid NF will change to Protonix Problems reviewed: Yes Code(s): K21.9 - GASTRO-ESOPHAGEAL REFLUX DISEASE WITHOUT ESOPHAGITIS (8) COPD (chronic obstructive pulmonary disease) Assessment/Plan: Continue duonebs Appreciate Pulmonology consult Monitor Spo2 Monitor vitals Problems reviewed: Yes Code(s): J44.9 - CHRONIC OBSTRUCTIVE PULMONARY DISEASE, UNSPECIFIED (9) Asthma Assessment/Plan: See above Problems reviewed: Yes Code(s): J45.909 - UNSPECIFIED ASTHMA, UNCOMPLICATED (10) Conjunctivitis Assessment/Plan: Stable Will start Ofloxacin Code(s): H10.9 - UNSPECIFIED CONJUNCTIVITIS (11) History of dysphagia Assessment/Plan: Aspiration Precautions Resume Mechanical Soft/Thin Liquids as tolerated Problems reviewed: Yes Code(s): Z87.19 - PERSONAL HISTORY OF OTHER DISEASES OF THE DIGESTIVE SYSTEM (12) Coronary artery disease Assessment/Plan: Stable Continue home meds Problems reviewed: Yes Code(s): I25.10 - ATHSCL HEART DISEASE OF [place] CORONARY ARTERY W/O ANG PCTRS Qualifiers: Coronary Disease-Associated Artery/Lesion type: [place] artery [place] vs. transplanted heart: [place] heart Associated angina: without angina Qualified Code(s): I25.10 - Atherosclerotic heart disease of [place] coronary artery without angina pectoris (13) Dementia Assessment/Plan: Continue Aricept Fall Precautions Problems reviewed: Yes Code(s): F03.90 - UNSPECIFIED DEMENTIA WITHOUT BEHAVIORAL DISTURBANCE Qualifiers: Dementia type: unspecified type Dementia behavioral disturbance: without behavioral disturbance Qualified Code(s): F03.90 - Unspecified dementia without behavioral disturbance (14) Diastolic dysfunction Assessment/Plan: Chest Xray-reviewed BNP 6521 Continue Lasix O2 Problems reviewed: Yes Code(s): I51.9 - HEART DISEASE, UNSPECIFIED (15) Hyperlipidemia Assessment/Plan: Stable Continue Lipitor Monitor LFTs Problems reviewed: Yes Code(s): E78.5 - HYPERLIPIDEMIA, UNSPECIFIED Qualifiers: Hyperlipidemia type: pure hypercholesterolemia Qualified Code(s): E78.00 - Pure hypercholesterolemia, unspecified; E78.0 - Pure hypercholesterolemia (16) Anxiety and depression Assessment/Plan: stable Continue Lexapro, Depakote Problems reviewed: Yes Code(s): F41.9 - ANXIETY DISORDER, UNSPECIFIED; F32.9 - MAJOR DEPRESSIVE DISORDER, SINGLE EPISODE, UNSPECIFIED Assessment/Plan This is a 78 y/o woman from [facility] with a PMHx of Dementia, Dysphagia, COPD , Asthma, Pneumonia, Diastolic CHF, ASHD, Afib (on Xarelto), Angina, HTN, HLD, GERD, Anxiety, UTI, Insomnia. Admitted to Telemetry for Severe Sepsis, Pneumonia , Elevated Troponin, Afib with RVR for further evaluation of their emergent condition. Plan: See Problem List FEN Replete lytes prn Mechanical Soft/Thin liquids (per SNF records) DVT ppx OOB SCDs Continue Xarelto Code Status: DNR/DNI, HCP Dispo: Requires Inpatient Care Visit type - Emergency Visit Emergency Visit: Yes ED Registration Date: 04/08/19 Care time: The patient presented to the Emergency Department on the above date and was hospitalized for further evaluation of their emergent condition. - New Patient This patient is new to me today: Yes Date on this admission: 04/08/19 - Critical Care Critical Care patient: No
[2019-04-09] MEDS ORDERED: LISINOPRIL 5 MG TABLET (FP) ONE (00:30)
[2019-04-09] MEDS ORDERED: METOPROLOL TARTRATE 50 MG TABLET (FP) ONE (00:30)
[2019-04-09] MEDS ORDERED: METOPROLOL TARTRATE 25 MG TABLET (FP) ONE (00:31)
[2019-04-09] MEDS ORDERED: ATORVASTATIN CA 10 MG TABLET (FP) ONE (00:31)
[2019-04-09] MEDS: METOPROLOL TARTRATE 25 MG TABLET (FP) PO SCH ×4 (00:45→23:03)
[2019-04-09] MEDS: ATORVASTATIN CA 10 MG TABLET (FP) PO SCH ×3 (00:45→23:03)
[2019-04-09] MEDS: LISINOPRIL 5 MG TABLET (FP) PO SCH ×3 (00:46→23:40)
[2019-04-09] MEDS ORDERED: PIPERACILLIN/TAZOB 4.5 GM 4.5 GM in DEXTROSE 5%-WATER 100 ML IVPB SCH (02:00)
[2019-04-09 02:27] LABS: ARTERIAL BLD GAS O2 SATURATION 95.5 % (95-98); ARTERIAL BLOOD GAS BASE EXCESS 3.8 meq/l (-2-2); ARTERIAL BLOOD GAS PCO2 39.8 mmHg (35-45); ARTERIAL BLOOD GAS pH 7.45 (7.35-7.45)
[2019-04-09] MEDS ORDERED: PIPERACILLIN/TAZOB 4.5 GM 4.5 GM/100 ML BAG IVPB ONE (02:40)
[2019-04-09 02:52] LABS: ALLENS TEST POSITIVE
[2019-04-09] MEDS: PIPERACILLIN/TAZOB 4.5 GM 4.5 GM in DEXTROSE 5%-WATER 100 ML IVPB SCH ×2 (03:05→11:00)
[2019-04-09] MEDS ORDERED: PATIENT'S OWN MEDICATION (NON-FORMULARY) (Clonazepam [Clonazepam] 0.5 MG) PO SCH (06:00)
[2019-04-09] MEDS ORDERED: clonazePAM 0.5 MG TABLET ONE (06:30)
[2019-04-09] MEDS: clonazePAM 0.5 MG TABLET PO SCH ×4 (06:41→23:03)
[2019-04-09] MEDS: ALBUTEROL SO4 2.5/IPRATROPIUM 0.5 INH SOL 3 ML VIAL.NEB. NEB SCH ×4 (10:01→20:16)
--- NOTE | 2019-04-09 12:17 | CON.PULM ---
Consult Consult Specialty:: PULM/CCM Referred by:: ROMAINE Reason for Consultation:: SOB - History of Present Illness Chief Complaint: SOB History of Present Illness: 78 F, Dementia, Dysphagia, COPD, Asthma, Pneumonia, Diastolic CHF, ASHD, Afib ( on Xarelto), Angina, HTN, HLD, GERD, Breast Ca s/p L- Mastectomy, Anxiety, UTI, and Insomnia. Admitted via the ER due to SOB, fever, and bloody sputum. The patient has dementia and is only saying she wants to go home. She cannot provide details. Currently on NIPPV support and saturation is 100%. No apparent travel history or sick contacts. 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 Cardio/Vascular: Yes: AFIB, CHF, HTN, Hyperlipdemia, Other (ASHD) Pulmonary: Yes: Asthma, COPD, Pneumonia Gastrointestinal: Yes: GERD, Other (Appendectomy at age 4 and, reexploration, laparotomy 5 years ago) Hepatobiliary: Yes: Cholecystitis (son gives h/o cholecystititis in past) Psych: Yes: Anxiety - Past Surgical History Past Surgical History: Yes: Appendectomy, Mastectomy (left sided) - Alcohol/Substance Use Hx Alcohol Use: No History of Substance Use: reports: None - Smoking History Smoking history: Unknown if ever smoked Have you smoked in the past 12 months: No - Social History Usual Living Arrangement: Half-Way ADL: Support Services History of Recent Travel: No Home Medications - Allergies Allergies/Adverse Reactions: Allergies Allergy/AdvReac Type Severity Reaction Status Date / Time No Known Allergies Allergy Verified 04/08/19 10:26 - Home Medications Home Medications: Ambulatory Orders Anastrozole [Arimidex -] 1 mg PO DAILY 07/09/17 Atorvastatin Ca [Lipitor] 10 mg PO HS 07/09/17 Clonazepam 0.5 mg PO TID 07/09/17 Divalproex [Depakote -] 250 mg PO BID 07/09/17 Donepezil HCl 10 mg PO HS 07/09/17 Escitalopram Oxalate [Lexapro -] 20 mg PO DAILY 07/09/17 Folic Acid 1 mg PO DAILY 07/09/17 Furosemide 20 mg PO DAILY 07/09/17 Isosorbide Mononitrate [Isosorbide Mononitrate ER] 30 mg PO DAILY 07/09/17 Loratadine 10 mg PO DAILY 07/09/17 Multivitamin [Poly-Vitamin] 1 each PO DAILY 07/09/17 Omeprazole 20 mg PO AC 07/09/17 Polyethylene Glycol 3350 [Clearlax] 17 gm PO DAILY 07/09/17 Rivaroxaban [Xarelto -] 20 mg PO 1800 07/09/17 Acetaminophen 650 mg PO Q8H PRN 07/10/17 Albuterol 2.5/Ipratropium 0.5 [Duoneb -] 1 amp NEB Q6H #1 amp 11/15/18 Lisinopril [Prinivil] 5 mg PO BID #60 tablet 11/15/18 Metoprolol Tartrate [Lopressor -] 75 mg PO BID #60 tablet 11/15/18 Ascorbate Calcium [Vitamin C] 500 mg PO BID 04/08/19 Miconazole Nitrate [Miconazole Nitrate -] 1 applic TP BID 04/08/19 Review of Systems Unable to obtain ROS, reason: cannot provide Physical Exam Vital Sings: Vital Signs Temperature 98.0 F 04/08/19 22:00 Pulse Rate 104 H 04/09/19 09:31 Respiratory Rate 22 H 04/09/19 09:31 Blood Pressure 140/98 04/09/19 09:31 O2 Sat by Pulse Oximetry (%) 98 04/09/19 09:32 Constitutional: Yes: Mild Distress Eyes: Yes: Conjunctiva Clear, EOM Intact HENT: Yes: Atraumatic, Normocephalic Neck: Yes: Supple, Trachea Midline Cardiovascular: Yes: Tachycardia Respiratory: Yes: On BiPap, Rhonchi, SOB, Tachypnea. No: Accessory Muscle Use, Stridor, Wheezes ...Inspection: Yes: WNL ...Clubbing: No Gastrointestinal: Yes: Normal Bowel Sounds, Soft Renal/: Yes: WNL Musculoskeletal: Yes: WNL Extremities: Yes: WNL Edema: No Peripheral Pulses WNL: Yes Integumentary: Yes: WNL Neurological: Yes: Confusion Labs: CBC, BMP 04/08/19 10:55 04/08/19 10:31 ABG Results ABG pH 7.45 (7.35-7.45) 04/09/19 02:05 ABG pCO2 at Pt Temp 39.8 mmHg (35-45) 04/09/19 02:05 ABG pO2 at Pt Temp 78.0 mmHg (80-100) L 04/09/19 02:05 ABG HCO3 27.5 mmol/L (22-27) H 04/09/19 02:05 ABG O2 Sat (Measured) 95.5 % (95-98) 04/09/19 02:05 ABG O2 Content 16.4 % vol 04/09/19 02:05 ABG Base Excess 3.8 meq/l (-2-2) H 04/09/19 02:05 Imaging - Results Chest X-ray: Report Reviewed, Image Reviewed Problem List - Problems (1) Anxiety and depression Code(s): F41.9 - ANXIETY DISORDER, UNSPECIFIED; F32.9 - MAJOR DEPRESSIVE DISORDER, SINGLE EPISODE, UNSPECIFIED (2) Asthma Code(s): J45.909 - UNSPECIFIED ASTHMA, UNCOMPLICATED (3) COPD (chronic obstructive pulmonary disease) Code(s): J44.9 - CHRONIC OBSTRUCTIVE PULMONARY DISEASE, UNSPECIFIED (4) Elevated troponin Code(s): R79.89 - OTHER SPECIFIED ABNORMAL FINDINGS OF BLOOD CHEMISTRY (5) GERD (gastroesophageal reflux disease) Code(s): K21.9 - GASTRO-ESOPHAGEAL REFLUX DISEASE WITHOUT ESOPHAGITIS (6) History of dysphagia Code(s): Z87.19 - PERSONAL HISTORY OF OTHER DISEASES OF THE DIGESTIVE SYSTEM (7) Acute respiratory failure with hypoxia Code(s): J96.01 - ACUTE RESPIRATORY FAILURE WITH HYPOXIA (8) Atrial fibrillation Code(s): I48.91 - UNSPECIFIED ATRIAL FIBRILLATION Qualifiers: Atrial fibrillation type: persistent (9) Coronary artery disease Code(s): I25.10 - ATHSCL HEART DISEASE OF [place] CORONARY ARTERY W/O ANG PCTRS Qualifiers: Coronary Disease-Associated Artery/Lesion type: [place] artery [place] vs. transplanted heart: [place] heart Associated angina: without angina Qualified Code(s): I25.10 - Atherosclerotic heart disease of [place] coronary artery without angina pectoris (10) Dementia Code(s): F03.90 - UNSPECIFIED DEMENTIA WITHOUT BEHAVIORAL DISTURBANCE Qualifiers: Dementia type: unspecified type Dementia behavioral disturbance: without behavioral disturbance Qualified Code(s): F03.90 - Unspecified dementia without behavioral disturbance (11) Diastolic dysfunction Code(s): I51.9 - HEART DISEASE, UNSPECIFIED (12) Hyperlipidemia Code(s): E78.5 - HYPERLIPIDEMIA, UNSPECIFIED Qualifiers: Hyperlipidemia type: pure hypercholesterolemia Qualified Code(s): E78.00 - Pure hypercholesterolemia, unspecified; E78.0 - Pure hypercholesterolemia (13) Hypoxia Code(s): R09.02 - HYPOXEMIA (14) Pneumonia Code(s): J18.9 - PNEUMONIA, UNSPECIFIED ORGANISM Qualifiers: Pneumonia type: aspiration pneumonia Assessment/Plan ABX per ID NIPPV support as needed Trial of VM O2 Aspiration precautions Taylor-culture No clear indication for systemic steroids at this time BD TX Xarelto Will follow Thank you. Dr Lindquist
--- NOTE | 2019-04-09 12:53 | EKG ---
Test Reason : Blood Pressure : / mmHG Vent. Rate : 106 BPM Atrial Rate : 085 BPM P-R Int : 000 ms QRS Dur : 088 ms QT Int : 386 ms P-R-T Axes : 000 043 049 degrees QTc Int : 512 ms ATRIAL FIBRILLATION WITH RAPID VENTRICULAR RESPONSE ABNORMAL ECG WHEN COMPARED WITH ECG OF 08-APR-2019 10:24, T WAVE INVERSION LESS EVIDENT IN LATERAL LEADS Confirmed by NIKHIL PERSAUD MD ([id number]) on 04/09/2019 12:53:27 PM Referred By: Confirmed By:NIKHIL PERSAUD MD
--- NOTE | 2019-04-09 13:13 | CON.ID ---
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: Yes: Dementia Cardio/Vascular: Yes: AFIB, CHF, HTN, Hyperlipdemia, Other (ASHD) Pulmonary: Yes: Asthma, COPD, Pneumonia Gastrointestinal: Yes: GERD, Other (Appendectomy at age 4 and, reexploration, laparotomy 5 years ago) Hepatobiliary: Yes: Cholecystitis (son gives h/o cholecystititis in past) Psych: Yes: Anxiety - Past Surgical History Past Surgical History: Yes: Appendectomy, Mastectomy (left sided) - Alcohol/Substance Use Hx Alcohol Use: No History of Substance Use: reports: None - Smoking History Smoking history: Unknown if ever smoked Have you smoked in the past 12 months: No - Social History Usual Living Arrangement: Assisted ADL: Support Services History of Recent Travel: No Home Medications - Allergies Allergies/Adverse Reactions: Allergies Allergy/AdvReac Type Severity Reaction Status Date / Time No Known Allergies Allergy Verified 04/08/19 10:26 - Home Medications Home Medications: Ambulatory Orders Anastrozole [Arimidex -] 1 mg PO DAILY 07/09/17 Atorvastatin Ca [Lipitor] 10 mg PO HS 07/09/17 Clonazepam 0.5 mg PO TID 07/09/17 Divalproex [Depakote -] 250 mg PO BID 07/09/17 Donepezil HCl 10 mg PO HS 07/09/17 Escitalopram Oxalate [Lexapro -] 20 mg PO DAILY 07/09/17 Folic Acid 1 mg PO DAILY 07/09/17 Furosemide 20 mg PO DAILY 07/09/17 Isosorbide Mononitrate [Isosorbide Mononitrate ER] 30 mg PO DAILY 07/09/17 Loratadine 10 mg PO DAILY 07/09/17 Multivitamin [Poly-Vitamin] 1 each PO DAILY 07/09/17 Omeprazole 20 mg PO AC 07/09/17 Polyethylene Glycol 3350 [Clearlax] 17 gm PO DAILY 07/09/17 Rivaroxaban [Xarelto -] 20 mg PO 1800 07/09/17 Acetaminophen 650 mg PO Q8H PRN 07/10/17 Albuterol 2.5/Ipratropium 0.5 [Duoneb -] 1 amp NEB Q6H #1 amp 11/15/18 Lisinopril [Prinivil] 5 mg PO BID #60 tablet 11/15/18 Metoprolol Tartrate [Lopressor -] 75 mg PO BID #60 tablet 11/15/18 Ascorbate Calcium [Vitamin C] 500 mg PO BID 04/08/19 Miconazole Nitrate [Miconazole Nitrate -] 1 applic TP BID 04/08/19 Physical Exam Vital Signs: Vital Signs Temperature 98.0 F 04/08/19 22:00 Pulse Rate 104 H 04/09/19 09:31 Respiratory Rate 22 H 04/09/19 09:31 Blood Pressure 140/98 04/09/19 09:31 O2 Sat by Pulse Oximetry (%) 98 04/09/19 09:32 Labs: CBC, BMP 04/08/19 10:55 04/08/19 10:31
--- NOTE | 2019-04-09 13:31 | CON.CARD ---
Consult Consult Specialty:: Cardiology - History of Present Illness Chief Complaint: Afib and TP elevation History of Present Illness: 78 F with dementia, anxiety, CAD, Afib, COPD admitted with fever and is being treated for PNA. She is noted to have mildly elevated TP and Afib with HR in the low 100s. The patient is not able to contribute to the history due to her dementia. She is currently on Venti mask with O2 sat> 90%. 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 Cardio/Vascular: Yes: AFIB, CHF, HTN, Hyperlipdemia, Other (ASHD) Pulmonary: Yes: Asthma, COPD, Pneumonia Gastrointestinal: Yes: GERD, Other (Appendectomy at age 4 and, reexploration, laparotomy 5 years ago) Hepatobiliary: Yes: Cholecystitis (son gives h/o cholecystititis in past) Psych: Yes: Anxiety - Past Surgical History Past Surgical History: Yes: Appendectomy, Mastectomy (left sided) - Alcohol/Substance Use Hx Alcohol Use: No History of Substance Use: reports: None - Smoking History Smoking history: Unknown if ever smoked Have you smoked in the past 12 months: No - Social History Usual Living Arrangement: [facility] ADL: Support Services History of Recent Travel: No Home Medications - Allergies Allergies/Adverse Reactions: Allergies Allergy/AdvReac Type Severity Reaction Status Date / Time No Known Allergies Allergy Verified 04/08/19 10:26 - Home Medications Home Medications: Ambulatory Orders Anastrozole [Arimidex -] 1 mg PO DAILY 07/09/17 Atorvastatin Ca [Lipitor] 10 mg PO HS 07/09/17 Clonazepam 0.5 mg PO TID 07/09/17 Divalproex [Depakote -] 250 mg PO BID 07/09/17 Donepezil HCl 10 mg PO HS 07/09/17 Escitalopram Oxalate [Lexapro -] 20 mg PO DAILY 07/09/17 Folic Acid 1 mg PO DAILY 07/09/17 Furosemide 20 mg PO DAILY 07/09/17 Isosorbide Mononitrate [Isosorbide Mononitrate ER] 30 mg PO DAILY 07/09/17 Loratadine 10 mg PO DAILY 07/09/17 Multivitamin [Poly-Vitamin] 1 each PO DAILY 07/09/17 Omeprazole 20 mg PO AC 07/09/17 Polyethylene Glycol 3350 [Clearlax] 17 gm PO DAILY 07/09/17 Rivaroxaban [Xarelto -] 20 mg PO 1800 07/09/17 Acetaminophen 650 mg PO Q8H PRN 07/10/17 Albuterol 2.5/Ipratropium 0.5 [Duoneb -] 1 amp NEB Q6H #1 amp 11/15/18 Lisinopril [Prinivil] 5 mg PO BID #60 tablet 11/15/18 Metoprolol Tartrate [Lopressor -] 75 mg PO BID #60 tablet 11/15/18 Ascorbate Calcium [Vitamin C] 500 mg PO BID 04/08/19 Miconazole Nitrate [Miconazole Nitrate -] 1 applic TP BID 04/08/19 Family Medical History Family History: Unable to Obtain Review of Systems Unable to obtain ROS, reason: dementia Vital Signs: Vital Signs Temperature 98.0 F 04/08/19 22:00 Pulse Rate 104 H 04/09/19 09:31 Respiratory Rate 22 H 04/09/19 09:31 Blood Pressure 140/98 04/09/19 09:31 O2 Sat by Pulse Oximetry (%) 98 04/09/19 09:32 Constitutional: Yes: Anxious, Mild Distress Eyes: Yes: Conjunctiva Clear, EOM Intact HENT: Yes: Atraumatic, Normocephalic Neck: Yes: Supple, Trachea Midline Respiratory: Yes: Regular (poor effort.) Gastrointestinal: Yes: Normal Bowel Sounds, Soft Cardiovascular: Yes: Tachycardia JVD: No Carotid Bruit: No PMI: Non-Displaced Heart Sounds: Yes: S1, S2 Murmur: No: Systolic Murmur, Diastolic Murmur Edema: No - Other Data Labs, Other Data: CBC, BMP 04/08/19 10:55 04/08/19 10:31 INR, PTT INR 1.69 (0.83-1.09) H 04/08/19 10:55 Troponin, BNP 04/08/19 04/08/19 04/09/19 10:31 19:59 05:50 Troponin I 0.90 H* 0.08 H B-Natriuretic Peptide 6521.5 H Troponin, BNP 04/08/19 04/08/19 04/09/19 10:31 19:59 05:50 Troponin I 0.90 H* 0.08 H B-Natriuretic Peptide 6521.5 H Afib RVR anterolateral ischemia Imaging - Results Chest X-ray: Report Reviewed Problem List - Problems (1) Atrial fibrillation with RVR Code(s): I48.91 - UNSPECIFIED ATRIAL FIBRILLATION Assessment/Plan 78 F with Afib, CAD, dementia. Admitted with PNA/Fever Mildly elevated TP and with afib HR 100-110. Rec: DC lisinopril Continue Metoprolol 75mg bid Xarelto. TP elevation is due to demand mediated ischemia. Medical management is advised.
--- NOTE | 2019-04-09 14:46 | PN ---
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 (short form) - Note 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: pt seen/ examined in er chart is reviewed all consults noted/ appreciated awake chronic ill appearance in mild distress on VM 50 percent denies pain. Vital Signs Temp 98.0 F 04/08/19 22:00 Pulse 104 H 04/09/19 09:31 Resp 22 H 04/09/19 09:31 BP 140/98 04/09/19 09:31 Pulse Ox 98 04/09/19 09:32 Intake & Output 04/08/19 04/09/19 04/09/19 23:59 11:59 23:59 Intake Total 10 10 Balance 10 10 Intake: IV 10 10 sl 10 10 Other: Voiding Method Incontinent Incontinent Active Medications Albuterol/Ipratropium (Duoneb -) 1 amp NEB RQID [facility] Last Admin: 04/09/19 10:01 Dose: 1 amp Anastrozole (Arimidex -) 1 mg PO DAILY [facility] Atorvastatin Calcium (Lipitor -) 10 mg PO HS [facility] Last Admin: 04/09/19 00:45 Dose: 10 mg Clonazepam (Klonopin -) 0.5 mg PO TID [facility] Last Admin: 04/09/19 06:41 Dose: 0.5 mg Divalproex Sodium (Depakote Sprinkle Caps -) 250 mg PO BID [facility] Donepezil HCl (Aricept -) 10 mg PO HS [facility] Escitalopram Oxalate (Lexapro -) 20 mg PO DAILY [facility] Folic Acid (Folic Acid -) 1 mg PO DAILY [facility] Furosemide (Lasix -) 20 mg PO DAILY [facility] Piperacillin Sod/Tazobactam (Sod 3.375 gm/ Dextrose) 50 mls @ 100 mls/hr IVPB Q8H-IV [facility]; Protocol Isosorbide Mononitrate (Imdur -) 30 mg PO DAILY [facility] Lisinopril (Prinivil) 5 mg PO BID [facility] Last Admin: 04/09/19 00:46 Dose: 5 mg Metoprolol Tartrate (Lopressor -) 75 mg PO BID [facility] Last Admin: 04/09/19 00:45 Dose: 75 mg Miconazole Nitrate (Miconazole Nitrate) 1 applic TP BID [facility] Ofloxacin (Ocuflox 0.3% Eye Drops -) 2 drop OU Q4HWA [facility] Pantoprazole Sodium (Protonix Iv) 40 mg IVPUSH DAILY [facility] Rivaroxaban (Xarelto) 20 mg PO 1800 [facility] CBC, BMP 04/08/19 10:55 04/08/19 10:31 Microbiology 04/08/19 11:20 Blood Culture - Preliminary Blood - Peripheral Venous NO GROWTH OBTAINED AFTER 24 HOURS, INCUBATION TO CONTINUE FOR 4 DAYS. 04/08/19 10:55 Blood Culture - Preliminary Blood - Peripheral Venous NO GROWTH OBTAINED AFTER 24 HOURS, INCUBATION TO CONTINUE FOR 4 DAYS. 04/08/19 11:57 Urine Culture - Preliminary Urine - Urine - Catheterized Lactose Fermenting Neg Bacilli cxr - reviewed Physical Examination Constitutional: Yes: Awake/ chron ic ill appearance Eyes: Yes: conjuctiva clear Neck: Yes: WNL, Supple, Trachea Midline Cardiovascular: Yes: Tachycardia, Pulse Irregular, S1, S2 Respiratory: Yes: Diminished, Rhonchi Gastrointestinal: Yes: soft Breast(s): Yes: Left (Mastectomy) Edema: No Peripheral Pulses WNL: Yes Neurological: Yes: awake) A/P Abx vm nippv as needed continue present care condition gaurded pt is dnr/di will follow Problem List - Problems (1) Acute respiratory failure with hypoxia Code(s): J96.01 - ACUTE RESPIRATORY FAILURE WITH HYPOXIA (2) Atrial fibrillation Code(s): I48.91 - UNSPECIFIED ATRIAL FIBRILLATION Qualifiers: Atrial fibrillation type: persistent (3) Coronary artery disease Code(s): I25.10 - ATHSCL HEART DISEASE OF [place] CORONARY ARTERY W/O ANG PCTRS Qualifiers: Coronary Disease-Associated Artery/Lesion type: [place] artery [place] vs. transplanted heart: [place] heart Associated angina: without angina Qualified Code(s): I25.10 - Atherosclerotic heart disease of [place] coronary artery without angina pectoris (4) Demand ischemia Code(s): I24.8 - OTHER FORMS OF ACUTE ISCHEMIC HEART DISEASE (5) Pneumonia Code(s): J18.9 - PNEUMONIA, UNSPECIFIED ORGANISM Qualifiers: Pneumonia type: aspiration pneumonia (6) Sepsis Code(s): A41.9 - SEPSIS, UNSPECIFIED ORGANISM Qualifiers: Sepsis type: sepsis due to unspecified organism Qualified Code(s): A41.9 - Sepsis, unspecified organism (7) UTI (urinary tract infection) Code(s): N39.0 - URINARY TRACT INFECTION, SITE NOT SPECIFIED Qualifiers: Urinary tract infection type: site unspecified Hematuria presence: without hematuria Qualified Code(s): N39.0 - Urinary tract infection, site not specified
[2019-04-09] MEDS: DIVALPROEX SODIUM 125 MG SPRINKLE CAPS PO SCH ×3 (16:28→23:02)
[2019-04-09] MEDS: ANASTROZOLE 1 MG TABLET PO SCH (16:28)
[2019-04-09] MEDS: ISOSORBIDE MONONITRATE 30 MG TAB.SR.24H (FP) PO SCH (16:28)
[2019-04-09] MEDS: FOLIC ACID 1 MG TABLET (FP) PO SCH (16:28)
[2019-04-09] MEDS: PANTOPRAZOLE SODIUM 40 MG VIAL IVPUSH SCH (16:29)
[2019-04-09] MEDS: ESCITALOPRAM OXALATE 20 MG TABLET (FP) PO SCH (16:29)
[2019-04-09] MEDS: MICONAZOLE NITRATE 28 GM TUBE TP SCH (16:29)
[2019-04-09] MEDS: FUROSEMIDE 20 MG TABLET (FP) PO SCH (16:29)
[2019-04-09] MEDS: PIPERACILLIN/TAZOB 3.375 GM 3.375 GM in DEXTROSE 5%-WATER - 50 ML IVPB SCH ×2 (16:30→20:23)
[2019-04-09] MEDS: RIVAROXABAN 20 MG TABLET PO SCH (20:23)
[2019-04-09] MEDS ORDERED: ACETAMINOPHEN 325 MG TABLET (FP) PO ONE (20:24)
[2019-04-09] MEDS: DONEPEZIL HCL 10 MG TABLET (FP) PO SCH ×2 (20:25→23:02)
[2019-04-10] MEDS: MICONAZOLE NITRATE 28 GM TUBE TP SCH ×3 (00:30→22:08)
[2019-04-10] MEDS: OFLOXACIN 0.3% OPHTHALMIC SOLUTION 5 ML BOTTLE OU SCH ×6 (02:43→22:07)
[2019-04-10] MEDS ORDERED: PIPERACILLIN/TAZOBACTAM 3.375 GM VIAL IVPB ONE ×3 (02:44→17:11)
[2019-04-10] MEDS: PIPERACILLIN/TAZOB 3.375 GM 3.375 GM in DEXTROSE 5%-WATER - 50 ML IVPB SCH ×3 (03:30→17:13)
[2019-04-10] MEDS: clonazePAM 0.5 MG TABLET PO SCH ×3 (06:04→21:55)
[2019-04-10] MEDS: ALBUTEROL SO4 2.5/IPRATROPIUM 0.5 INH SOL 3 ML VIAL.NEB. NEB SCH ×4 (07:25→20:35)
[2019-04-10] MEDS ORDERED: PT OWN MED DRAWER 7, Y5N ONE (10:09)
[2019-04-10] MEDS ORDERED: DEXTROSE 5%-WATER - 50 ML IVPB ONE ×2 (10:10→17:11)
[2019-04-10] MEDS: ESCITALOPRAM OXALATE 20 MG TABLET (FP) PO SCH (10:14)
[2019-04-10] MEDS: METOPROLOL TARTRATE 25 MG TABLET (FP) PO SCH ×2 (10:14→21:55)
[2019-04-10] MEDS: FUROSEMIDE 20 MG TABLET (FP) PO SCH (10:14)
[2019-04-10] MEDS: LISINOPRIL 5 MG TABLET (FP) PO SCH (10:14)
[2019-04-10] MEDS: FOLIC ACID 1 MG TABLET (FP) PO SCH (10:14)
[2019-04-10] MEDS: ISOSORBIDE MONONITRATE 30 MG TAB.SR.24H (FP) PO SCH (10:14)
[2019-04-10] MEDS: ANASTROZOLE 1 MG TABLET PO SCH (10:16)
[2019-04-10] MEDS: DIVALPROEX SODIUM 125 MG SPRINKLE CAPS PO SCH ×2 (10:16→21:55)
[2019-04-10] MEDS: PANTOPRAZOLE SODIUM 40 MG VIAL IVPUSH SCH (10:41)
--- NOTE | 2019-04-10 10:59 | PN ---
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, Physician History of Present Illness: PULMONARY AWAKE,CONFUSED,ON NASAL O2 ,-RESP DISTRESS,TEMP 100.9 - Current Medication List Current Medications: Active Medications Albuterol/Ipratropium (Duoneb -) 1 amp NEB RQID [facility] Last Admin: 04/10/19 07:25 Dose: 1 amp Anastrozole (Arimidex -) 1 mg PO DAILY [facility] Last Admin: 04/10/19 10:16 Dose: 1 mg Atorvastatin Calcium (Lipitor -) 10 mg PO HS [facility] Last Admin: 04/09/19 23:03 Dose: Not Given Clonazepam (Klonopin -) 0.5 mg PO TID [facility] Last Admin: 04/10/19 06:04 Dose: 0.5 mg Divalproex Sodium (Depakote Sprinkle Caps -) 250 mg PO BID [facility] Last Admin: 04/10/19 10:16 Dose: 250 mg Donepezil HCl (Aricept -) 10 mg PO HS [facility] Last Admin: 04/09/19 23:02 Dose: Not Given Escitalopram Oxalate (Lexapro -) 20 mg PO DAILY [facility] Last Admin: 04/10/19 10:14 Dose: 20 mg Folic Acid (Folic Acid -) 1 mg PO DAILY [facility] Last Admin: 04/10/19 10:14 Dose: 1 mg Furosemide (Lasix -) 20 mg PO DAILY [facility] Last Admin: 04/10/19 10:14 Dose: 20 mg Piperacillin Sod/Tazobactam (Sod 3.375 gm/ Dextrose) 50 mls @ 100 mls/hr IVPB Q8H-IV [facility]; Protocol Last Admin: 04/10/19 10:16 Dose: 100 mls/hr Isosorbide Mononitrate (Imdur -) 30 mg PO DAILY [facility] Last Admin: 04/10/19 10:14 Dose: 30 mg Lisinopril (Prinivil) 5 mg PO BID [facility] Last Admin: 04/10/19 10:14 Dose: 5 mg Metoprolol Tartrate (Lopressor -) 75 mg PO BID [facility] Last Admin: 04/10/19 10:14 Dose: 75 mg Miconazole Nitrate (Miconazole Nitrate) 1 applic TP BID [facility] Last Admin: 04/10/19 10:18 Dose: 1 applic Ofloxacin (Ocuflox 0.3% Eye Drops -) 2 drop OU Q4HWA [facility] Last Admin: 04/10/19 10:27 Dose: 2 drop Pantoprazole Sodium (Protonix Iv) 40 mg IVPUSH DAILY [facility] Last Admin: 04/10/19 10:41 Dose: 40 mg Rivaroxaban (Xarelto) 20 mg PO 1800 [facility] Last Admin: 04/09/19 20:23 Dose: 20 mg - Objective Vital Signs: Vital Signs Temperature 100.9 F H 04/10/19 05:59 Pulse Rate 98 H 04/10/19 05:59 Respiratory Rate 18 04/10/19 05:59 Blood Pressure 125/71 04/10/19 05:59 O2 Sat by Pulse Oximetry (%) 98 04/09/19 21:00 Constitutional: Yes: Well Nourished, Other (CONFUSED) Eyes: Yes: WNL HENT: Yes: WNL Neck: Yes: WNL Cardiovascular: Yes: Pulse Irregular, S1, S2 Respiratory: Yes: Diminished, Other (POOR INSPIRATORY EFFORT,UNCOOPERATIVE) Gastrointestinal: Yes: Normal Bowel Sounds, Soft Extremities: Yes: WNL Edema: No Labs: CBC, BMP Assessment/Plan Problem List - Problems (1) Anxiety and depression Code(s): F41.9 - ANXIETY DISORDER, UNSPECIFIED; F32.9 - MAJOR DEPRESSIVE DISORDER, SINGLE EPISODE, UNSPECIFIED (2) Asthma Code(s): J45.909 - UNSPECIFIED ASTHMA, UNCOMPLICATED (3) COPD (chronic obstructive pulmonary disease) Code(s): J44.9 - CHRONIC OBSTRUCTIVE PULMONARY DISEASE, UNSPECIFIED (4) Elevated troponin Code(s): R79.89 - OTHER SPECIFIED ABNORMAL FINDINGS OF BLOOD CHEMISTRY (5) GERD (gastroesophageal reflux disease) Code(s): K21.9 - GASTRO-ESOPHAGEAL REFLUX DISEASE WITHOUT ESOPHAGITIS (6) History of dysphagia Code(s): Z87.19 - PERSONAL HISTORY OF OTHER DISEASES OF THE DIGESTIVE SYSTEM (7) Acute respiratory failure with hypoxia Code(s): J96.01 - ACUTE RESPIRATORY FAILURE WITH HYPOXIA (8) Atrial fibrillation Code(s): I48.91 - UNSPECIFIED ATRIAL FIBRILLATION Qualifiers: Atrial fibrillation type: persistent (9) Coronary artery disease Code(s): I25.10 - ATHSCL HEART DISEASE OF [place] CORONARY ARTERY W/O ANG PCTRS Qualifiers: Coronary Disease-Associated Artery/Lesion type: [place] artery [place] vs. transplanted heart: [place] heart Associated angina: without angina Qualified Code(s): I25.10 - Atherosclerotic heart disease of [place] coronary artery without angina pectoris (10) Dementia Code(s): F03.90 - UNSPECIFIED DEMENTIA WITHOUT BEHAVIORAL DISTURBANCE Qualifiers: Dementia type: unspecified type Dementia behavioral disturbance: without behavioral disturbance Qualified Code(s): F03.90 - Unspecified dementia without behavioral disturbance (11) Diastolic dysfunction Code(s): I51.9 - HEART DISEASE, UNSPECIFIED (12) Hyperlipidemia Code(s): E78.5 - HYPERLIPIDEMIA, UNSPECIFIED Qualifiers: Hyperlipidemia type: pure hypercholesterolemia Qualified Code(s): E78.00 - Pure hypercholesterolemia, unspecified; E78.0 - Pure hypercholesterolemia (13) Hypoxia Code(s): R09.02 - HYPOXEMIA (14) Pneumonia Code(s): J18.9 - PNEUMONIA, UNSPECIFIED ORGANISM Qualifiers: Pneumonia type: aspiration pneumonia Assessment/Plan ABX per ID NIPPV support as needed O2 to maintain O2 sat 90% Aspiration precautions No clear indication for systemic steroids at this time BD TX Xarelto F/U Chest x-rays DR JASSO
--- NOTE | 2019-04-10 11:34 | PN ---
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 (short form) - Note 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: Events noted lethargic not in distress Vital Signs - 24 hr 04/09/19 04/09/19 04/09/19 12:00 16:00 18:34 Temperature 102.6 F H 99 F Pulse Rate 122 H Pulse Rate [ 120 H 108 H Apical] Respiratory 24 H 18 18 Rate Blood Pressure 102/70 Blood Pressure 142/87 108/64 [Right Arm] O2 Sat by Pulse 95 96 Oximetry (%) 04/09/19 04/10/19 04/10/19 21:00 01:50 05:59 Temperature 100.8 F H 100.9 F H Pulse Rate 98 H 98 H Pulse Rate [ Apical] Respiratory 20 18 18 Rate Blood Pressure 96/54 L 125/71 Blood Pressure [Right Arm] O2 Sat by Pulse 98 Oximetry (%) 04/10/19 09:00 Temperature 99.4 F Pulse Rate 96 H Pulse Rate [ Apical] Respiratory 18 Rate Blood Pressure 113/57 L Blood Pressure [Right Arm] O2 Sat by Pulse 98 Oximetry (%) Current Medications Generic Name Dose Route Start Last Admin Trade Name Freq PRN Reason Stop Dose Admin Albuterol/Ipratropium 1 amp 04/08/19 23:00 04/10/19 07:25 Duoneb - NEB 1 amp RQID [facility] Administration Anastrozole 1 mg 04/09/19 10:00 04/10/19 10:16 Arimidex - PO 1 mg DAILY [facility] Administration Atorvastatin Calcium 10 mg 04/08/19 22:00 04/09/19 23:03 Lipitor - PO Not Given HS [facility] Clonazepam 0.5 mg 04/09/19 06:00 04/10/19 06:04 Klonopin - PO 0.5 mg TID [facility] Administration Divalproex Sodium 250 mg 04/09/19 10:00 04/10/19 10:16 Depakote Sprinkle Caps - PO 250 mg BID [facility] Administration Donepezil HCl 10 mg 04/09/19 22:00 04/09/19 23:02 Aricept - PO Not Given HS [facility] Escitalopram Oxalate 20 mg 04/09/19 10:00 04/10/19 10:14 Lexapro - PO 20 mg DAILY [facility] Administration Folic Acid 1 mg 04/09/19 10:00 04/10/19 10:14 Folic Acid - PO 1 mg DAILY [facility] Administration Furosemide 20 mg 04/09/19 10:00 04/10/19 10:14 Lasix - PO 20 mg DAILY [facility] Administration Piperacillin Sod/Tazobactam 50 mls @ 100 mls/hr 04/09/19 13:15 04/10/19 10:16 Sod 3.375 gm/ Dextrose IVPB 100 mls/hr Q8H-IV [facility] Administration Protocol Isosorbide Mononitrate 30 mg 04/09/19 10:00 04/10/19 10:14 Imdur - PO 30 mg DAILY [facility] Administration Lisinopril 5 mg 04/08/19 23:00 04/10/19 10:14 Prinivil PO 5 mg BID [facility] Administration Metoprolol Tartrate 75 mg 04/08/19 23:00 04/10/19 10:14 Lopressor - PO 75 mg BID [facility] Administration Miconazole Nitrate 1 applic 04/09/19 10:00 04/10/19 10:18 Miconazole Nitrate TP 1 applic BID [facility] Administration Ofloxacin 2 drop 04/09/19 23:11 04/10/19 10:27 Ocuflox 0.3% Eye Drops - OU 2 drop Q4HWA [facility] Administration Pantoprazole Sodium 40 mg 04/09/19 10:00 04/10/19 10:41 Protonix Iv IVPUSH 40 mg DAILY [facility] Administration Rivaroxaban 20 mg 04/09/19 18:00 04/09/19 20:23 Xarelto PO 20 mg 1800 [facility] Administration Physical Examination Constitutional: Yes: Awake/ chronic ill appearance Eyes: Yes: conjuctiva clear Neck: Yes: WNL, Supple, Trachea Midline Cardiovascular: Yes: Tachycardia, Pulse Irregular, S1, S2 Respiratory: Yes: Diminished, no Rhonchi Gastrointestinal: Yes: soft Breast(s): Yes: Left (Mastectomy) Edema: No Peripheral Pulses WNL: Yes Neurological: Yes: drowsy A/P Abx nippv as needed continue present care supportive care Pt is DNR and DNI Cardiology , Pulmonary and ID eval noted troponins trending down-- demand ischemia Problem List - Problems (1) Atrial fibrillation with RVR Code(s): I48.91 - UNSPECIFIED ATRIAL FIBRILLATION (2) COPD (chronic obstructive pulmonary disease) Code(s): J44.9 - CHRONIC OBSTRUCTIVE PULMONARY DISEASE, UNSPECIFIED (3) Elevated troponin Code(s): R79.89 - OTHER SPECIFIED ABNORMAL FINDINGS OF BLOOD CHEMISTRY (4) Systemic inflammatory response syndrome (SIRS) Code(s): R65.10 - SIRS OF NON-INFECTIOUS ORIGIN W/O ACUTE ORGAN DYSFUNCTION
--- NOTE | 2019-04-10 11:58 | PN ---
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, Physician History of Present Illness: pt seen and examined today in nad. alert but confused asking to go home. no current complaints. - Current Medication List Current Medications: Active Medications Albuterol/Ipratropium (Duoneb -) 1 amp NEB RQID [facility] Last Admin: 04/10/19 11:35 Dose: 1 amp Anastrozole (Arimidex -) 1 mg PO DAILY [facility] Last Admin: 04/10/19 10:16 Dose: 1 mg Atorvastatin Calcium (Lipitor -) 10 mg PO HS [facility] Last Admin: 04/09/19 23:03 Dose: Not Given Clonazepam (Klonopin -) 0.5 mg PO TID [facility] Last Admin: 04/10/19 06:04 Dose: 0.5 mg Divalproex Sodium (Depakote Sprinkle Caps -) 250 mg PO BID [facility] Last Admin: 04/10/19 10:16 Dose: 250 mg Donepezil HCl (Aricept -) 10 mg PO HS [facility] Last Admin: 04/09/19 23:02 Dose: Not Given Escitalopram Oxalate (Lexapro -) 20 mg PO DAILY [facility] Last Admin: 04/10/19 10:14 Dose: 20 mg Folic Acid (Folic Acid -) 1 mg PO DAILY [facility] Last Admin: 04/10/19 10:14 Dose: 1 mg Furosemide (Lasix -) 20 mg PO DAILY [facility] Last Admin: 04/10/19 10:14 Dose: 20 mg Piperacillin Sod/Tazobactam (Sod 3.375 gm/ Dextrose) 50 mls @ 100 mls/hr IVPB Q8H-IV [facility]; Protocol Last Admin: 04/10/19 10:16 Dose: 100 mls/hr Isosorbide Mononitrate (Imdur -) 30 mg PO DAILY [facility] Last Admin: 04/10/19 10:14 Dose: 30 mg Metoprolol Tartrate (Lopressor -) 75 mg PO BID [facility] Last Admin: 04/10/19 10:14 Dose: 75 mg Miconazole Nitrate (Miconazole Nitrate) 1 applic TP BID [facility] Last Admin: 04/10/19 10:18 Dose: 1 applic Ofloxacin (Ocuflox 0.3% Eye Drops -) 2 drop OU Q4HWA [facility] Last Admin: 04/10/19 10:27 Dose: 2 drop Pantoprazole Sodium (Protonix Iv) 40 mg IVPUSH DAILY [facility] Last Admin: 04/10/19 10:41 Dose: 40 mg Rivaroxaban (Xarelto) 20 mg PO 1800 [facility] Last Admin: 04/09/19 20:23 Dose: 20 mg - Objective Vital Signs: Vital Signs Temperature 99.4 F 04/10/19 09:00 Pulse Rate 96 H 04/10/19 09:00 Respiratory Rate 18 04/10/19 09:00 Blood Pressure 113/57 L 04/10/19 09:00 O2 Sat by Pulse Oximetry (%) 98 04/10/19 09:00 Constitutional: Yes: No Distress Eyes: Yes: Conjunctiva Clear HENT: Yes: Atraumatic, Normocephalic Neck: Yes: Supple Cardiovascular: Yes: Pulse Irregular, Murmur, S1, S2. No: Regular Rate and Rhythm, Bradycardia, Tachycardia, Bruit, JVD, Gallop, Rub, S3, S4, Varicosities Respiratory: Yes: Regular, Diminished. No: Rales, Rhonchi, SOB, Wheezes Gastrointestinal: Yes: Normal Bowel Sounds, Soft Edema: No Peripheral Pulses WNL: Yes Neurological: Yes: Alert. No: Oriented Psychiatric: Yes: Alert. No: Oriented Labs: CBC, BMP 04/08/19 10:55 04/08/19 10:31 INR, PTT INR 1.69 (0.83-1.09) H 04/08/19 10:55 - ....Imaging Chest X-ray: Report Reviewed, Image Reviewed EKG: Report Reviewed, Image Reviewed Other: Report Reviewed, Image Reviewed (tele-Af, HR adequately controlled currently) Assessment/Plan 78 F with Afib, CAD, dementia. Admitted with PNA/Fever Mildly elevated TP and with afib HR 100-110. Rec: lisinopril dcd Would dc Imdur Afib HR better controlled, likely exacerbated by low grade fever Continue Metoprolol 75mg bid, would not uptitrate further as HR adequate and BP low normal on Xarelto. TP elevation is due to demand mediated ischemia. Medical management is advised.
--- NOTE | 2019-04-10 12:52 | EKG ---
Test Reason : Blood Pressure : / mmHG Vent. Rate : 130 BPM Atrial Rate : 156 BPM P-R Int : 000 ms QRS Dur : 096 ms QT Int : 286 ms P-R-T Axes : 000 037 229 degrees QTc Int : 420 ms ATRIAL FIBRILLATION WITH RAPID VENTRICULAR RESPONSE CANNOT RULE OUT ANTERIOR INFARCT , AGE UNDETERMINED MARKED ST ABNORMALITY, POSSIBLE INFEROLATERAL SUBENDOCARDIAL INJURY ABNORMAL ECG WHEN COMPARED WITH ECG OF 06-NOV-2018 09:31, NO SIGNIFICANT CHANGE WAS FOUND Confirmed by Solis Tejada MD ([id number]) on 04/10/2019 12:52:16 PM Referred By: Confirmed By:Solis Tejada MD
--- NOTE | 2019-04-10 12:58 | PN ---
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, Physician History of Present Illness: stable improving await for identifications of organism - Current Medication List Current Medications: Active Medications Albuterol/Ipratropium (Duoneb -) 1 amp NEB RQID [facility] Last Admin: 04/10/19 11:35 Dose: 1 amp Anastrozole (Arimidex -) 1 mg PO DAILY [facility] Last Admin: 04/10/19 10:16 Dose: 1 mg Atorvastatin Calcium (Lipitor -) 10 mg PO HS [facility] Last Admin: 04/09/19 23:03 Dose: Not Given Clonazepam (Klonopin -) 0.5 mg PO TID [facility] Last Admin: 04/10/19 06:04 Dose: 0.5 mg Divalproex Sodium (Depakote Sprinkle Caps -) 250 mg PO BID [facility] Last Admin: 04/10/19 10:16 Dose: 250 mg Donepezil HCl (Aricept -) 10 mg PO HS [facility] Last Admin: 04/09/19 23:02 Dose: Not Given Escitalopram Oxalate (Lexapro -) 20 mg PO DAILY [facility] Last Admin: 04/10/19 10:14 Dose: 20 mg Folic Acid (Folic Acid -) 1 mg PO DAILY [facility] Last Admin: 04/10/19 10:14 Dose: 1 mg Furosemide (Lasix -) 20 mg PO DAILY [facility] Last Admin: 04/10/19 10:14 Dose: 20 mg Piperacillin Sod/Tazobactam (Sod 3.375 gm/ Dextrose) 50 mls @ 100 mls/hr IVPB Q8H-IV [facility]; Protocol Last Admin: 04/10/19 10:16 Dose: 100 mls/hr Metoprolol Tartrate (Lopressor -) 75 mg PO BID [facility] Last Admin: 04/10/19 10:14 Dose: 75 mg Miconazole Nitrate (Miconazole Nitrate) 1 applic TP BID [facility] Last Admin: 04/10/19 10:18 Dose: 1 applic Ofloxacin (Ocuflox 0.3% Eye Drops -) 2 drop OU Q4HWA [facility] Last Admin: 04/10/19 10:27 Dose: 2 drop Pantoprazole Sodium (Protonix Iv) 40 mg IVPUSH DAILY [facility] Last Admin: 04/10/19 10:41 Dose: 40 mg Rivaroxaban (Xarelto) 20 mg PO 1800 [facility] Last Admin: 04/09/19 20:23 Dose: 20 mg - Objective Vital Signs: Vital Signs Temperature 99.4 F 04/10/19 09:00 Pulse Rate 96 H 04/10/19 09:00 Respiratory Rate 18 04/10/19 09:00 Blood Pressure 113/57 L 04/10/19 09:00 O2 Sat by Pulse Oximetry (%) 98 04/10/19 09:00 Constitutional: Yes: No Distress, Calm Cardiovascular: Yes: S1, S2 Respiratory: Yes: Regular, CTA Bilaterally Gastrointestinal: Yes: Normal Bowel Sounds, Soft Musculoskeletal: Yes: WNL Extremities: Yes: WNL Neurological: Yes: Alert, Other Psychiatric: Yes: Other Labs: CBC, BMP 04/08/19 10:55 04/08/19 10:31 INR, PTT INR 1.69 (0.83-1.09) H 04/08/19 10:55 Assessment/Plan Problem List - Problems (1) Atrial fibrillation with RVR Code(s): I48.91 - UNSPECIFIED ATRIAL FIBRILLATION (2) COPD (chronic obstructive pulmonary disease) Code(s): J44.9 - CHRONIC OBSTRUCTIVE PULMONARY DISEASE, UNSPECIFIED (3) Elevated troponin Code(s): R79.89 - OTHER SPECIFIED ABNORMAL FINDINGS OF BLOOD CHEMISTRY (4) Systemic inflammatory response syndrome (SIRS) Code(s): R65.10 - SIRS OF NON-INFECTIOUS ORIGIN W/O ACUTE ORGAN DYSFUNCTION uti plan continue abx await for identification rest as per the team
[2019-04-10] MEDS: RIVAROXABAN 20 MG TABLET PO SCH (17:12)
[2019-04-10] MEDS: DONEPEZIL HCL 10 MG TABLET (FP) PO SCH (21:55)
[2019-04-10] MEDS: ATORVASTATIN CA 10 MG TABLET (FP) PO SCH (21:55)
[2019-04-11] MEDS ORDERED: DEXTROSE 5%-WATER - 50 ML IVPB ONE ×3 (01:03→17:12)
[2019-04-11] MEDS ORDERED: PIPERACILLIN/TAZOBACTAM 3.375 GM VIAL IVPB ONE ×3 (01:03→17:12)
[2019-04-11] MEDS: PIPERACILLIN/TAZOB 3.375 GM 3.375 GM in DEXTROSE 5%-WATER - 50 ML IVPB SCH ×3 (01:15→17:14)
[2019-04-11] MEDS: clonazePAM 0.5 MG TABLET PO SCH ×3 (05:23→22:18)
[2019-04-11] MEDS: ACETAMINOPHEN 325 MG TABLET (FP) PO PRN (05:24)
[2019-04-11] MEDS: OFLOXACIN 0.3% OPHTHALMIC SOLUTION 5 ML BOTTLE OU SCH ×5 (05:30→22:19)
[2019-04-11 07:20] LABS: HEMATOCRIT 30.7 % (32.4-45.2); HEMOGLOBIN 10.1 GM/dL (10.7-15.3); MCH 31.4 pg (25.7-33.7); MEAN CELL VOLUME 95.2 fl (80-96); MEAN PLT VOLUME 8.9 fl (7.5-11.1); PLATELET COUNT 220 K/MM3 (134-434); RBC 3.22 M/mm3 (3.60-5.2); RDW 14.6 % (11.6-15.6); WHITE BLOOD COUNT 12.8 K/mm3 (4.0-10.0)
[2019-04-11 07:44] LABS: ALBUMIN 2.4 g/dl (3.4-5.0); BILIRUBIN,TOTAL 1.4 mg/dL (0.2-1); BLOOD UREA NITROGEN 28.3 mg/dL (7-18); CALCIUM 8.9 mg/dL (8.5-10.1); CREATININE 0.8 mg/dL (0.55-1.3); POTASSIUM 4.1 mmol/L (3.5-5.1); TOT PROT 6.2 g/dl (6.4-8.2)
[2019-04-11] MEDS: ALBUTEROL SO4 2.5/IPRATROPIUM 0.5 INH SOL 3 ML VIAL.NEB. NEB SCH ×5 (08:45→21:15)
[2019-04-11] MEDS: FOLIC ACID 1 MG TABLET (FP) PO SCH (09:52)
[2019-04-11] MEDS: FUROSEMIDE 20 MG TABLET (FP) PO SCH (09:52)
[2019-04-11] MEDS: METOPROLOL TARTRATE 25 MG TABLET (FP) PO SCH ×2 (09:52→22:18)
[2019-04-11] MEDS: ESCITALOPRAM OXALATE 20 MG TABLET (FP) PO SCH (09:52)
[2019-04-11] MEDS: ANASTROZOLE 1 MG TABLET PO SCH (09:53)
[2019-04-11] MEDS: DIVALPROEX SODIUM 125 MG SPRINKLE CAPS PO SCH ×2 (09:53→22:19)
[2019-04-11] MEDS: MICONAZOLE NITRATE 28 GM TUBE TP SCH ×2 (09:54→22:19)
[2019-04-11] MEDS: PANTOPRAZOLE SODIUM 40 MG VIAL IVPUSH SCH (10:31)
--- NOTE | 2019-04-11 11:58 | PN ---
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, Physician History of Present Illness: pulmonary sleepy,-resp distress,-congestion - Current Medication List Current Medications: Active Medications Acetaminophen (Tylenol -) 650 mg PO Q6H PRN PRN Reason: FEVER Last Admin: 04/11/19 05:24 Dose: 650 mg Albuterol/Ipratropium (Duoneb -) 1 amp NEB RQID [facility] Last Admin: 04/11/19 08:45 Dose: 1 amp Anastrozole (Arimidex -) 1 mg PO DAILY [facility] Last Admin: 04/11/19 09:53 Dose: 1 mg Atorvastatin Calcium (Lipitor -) 10 mg PO HS [facility] Last Admin: 04/10/19 21:55 Dose: 10 mg Clonazepam (Klonopin -) 0.5 mg PO TID [facility] Last Admin: 04/11/19 05:23 Dose: 0.5 mg Divalproex Sodium (Depakote Sprinkle Caps -) 250 mg PO BID [facility] Last Admin: 04/11/19 09:53 Dose: 250 mg Donepezil HCl (Aricept -) 10 mg PO HS [facility] Last Admin: 04/10/19 21:55 Dose: 10 mg Escitalopram Oxalate (Lexapro -) 20 mg PO DAILY [facility] Last Admin: 04/11/19 09:52 Dose: 20 mg Folic Acid (Folic Acid -) 1 mg PO DAILY [facility] Last Admin: 04/11/19 09:52 Dose: 1 mg Furosemide (Lasix -) 20 mg PO DAILY [facility] Last Admin: 04/11/19 09:52 Dose: 20 mg Piperacillin Sod/Tazobactam (Sod 3.375 gm/ Dextrose) 50 mls @ 100 mls/hr IVPB Q8H-IV [facility]; Protocol Last Admin: 04/11/19 09:52 Dose: 100 mls/hr Metoprolol Tartrate (Lopressor -) 75 mg PO BID [facility] Last Admin: 04/11/19 09:52 Dose: 75 mg Miconazole Nitrate (Miconazole Nitrate) 1 applic TP BID [facility] Last Admin: 04/11/19 09:54 Dose: 1 applic Ofloxacin (Ocuflox 0.3% Eye Drops -) 2 drop OU Q4HWA [facility] Last Admin: 04/11/19 09:55 Dose: 2 drop Pantoprazole Sodium (Protonix Iv) 40 mg IVPUSH DAILY [facility] Last Admin: 04/11/19 10:31 Dose: 40 mg Rivaroxaban (Xarelto) 20 mg PO 1800 [facility] Last Admin: 04/10/19 17:12 Dose: 20 mg - Objective Vital Signs: Vital Signs Temperature 99.2 F 04/11/19 09:00 Pulse Rate 104 H 04/11/19 09:00 Respiratory Rate 18 04/11/19 09:00 Blood Pressure 114/64 04/11/19 09:00 O2 Sat by Pulse Oximetry (%) 97 04/10/19 21:00 Constitutional: Yes: Well Nourished, Other (sleepy) Eyes: Yes: WNL HENT: Yes: WNL Neck: Yes: WNL Cardiovascular: Yes: Pulse Irregular, S1, S2 Respiratory: Yes: Diminished Gastrointestinal: Yes: Normal Bowel Sounds, Soft Extremities: Yes: WNL Edema: No Labs: CBC, BMP 04/11/19 05:30 04/11/19 05:30 INR, PTT INR 1.69 (0.83-1.09) H 04/08/19 10:55 Assessment/Plan Problem List - Problems (1) Anxiety and depression Code(s): F41.9 - ANXIETY DISORDER, UNSPECIFIED; F32.9 - MAJOR DEPRESSIVE DISORDER, SINGLE EPISODE, UNSPECIFIED (2) Asthma Code(s): J45.909 - UNSPECIFIED ASTHMA, UNCOMPLICATED (3) COPD (chronic obstructive pulmonary disease) Code(s): J44.9 - CHRONIC OBSTRUCTIVE PULMONARY DISEASE, UNSPECIFIED (4) Elevated troponin Code(s): R79.89 - OTHER SPECIFIED ABNORMAL FINDINGS OF BLOOD CHEMISTRY (5) GERD (gastroesophageal reflux disease) Code(s): K21.9 - GASTRO-ESOPHAGEAL REFLUX DISEASE WITHOUT ESOPHAGITIS (6) History of dysphagia Code(s): Z87.19 - PERSONAL HISTORY OF OTHER DISEASES OF THE DIGESTIVE SYSTEM (7) Acute respiratory failure with hypoxia Code(s): J96.01 - ACUTE RESPIRATORY FAILURE WITH HYPOXIA (8) Atrial fibrillation Code(s): I48.91 - UNSPECIFIED ATRIAL FIBRILLATION Qualifiers: Atrial fibrillation type: persistent (9) Coronary artery disease Code(s): I25.10 - ATHSCL HEART DISEASE OF [place] CORONARY ARTERY W/O ANG PCTRS Qualifiers: Coronary Disease-Associated Artery/Lesion type: [place] artery [place] vs. transplanted heart: [place] heart Associated angina: without angina Qualified Code(s): I25.10 - Atherosclerotic heart disease of [place] coronary artery without angina pectoris (10) Dementia Code(s): F03.90 - UNSPECIFIED DEMENTIA WITHOUT BEHAVIORAL DISTURBANCE Qualifiers: Dementia type: unspecified type Dementia behavioral disturbance: without behavioral disturbance Qualified Code(s): F03.90 - Unspecified dementia without behavioral disturbance (11) Diastolic dysfunction Code(s): I51.9 - HEART DISEASE, UNSPECIFIED (12) Hyperlipidemia Code(s): E78.5 - HYPERLIPIDEMIA, UNSPECIFIED Qualifiers: Hyperlipidemia type: pure hypercholesterolemia Qualified Code(s): E78.00 - Pure hypercholesterolemia, unspecified; E78.0 - Pure hypercholesterolemia (13) Hypoxia Code(s): R09.02 - HYPOXEMIA (14) Pneumonia Code(s): J18.9 - PNEUMONIA, UNSPECIFIED ORGANISM Qualifiers: Pneumonia type: aspiration pneumonia Assessment/Plan ABX per ID NIPPV support as needed O2 to maintain O2 sat 90% Aspiration precautions BD TX Xarelto F/U Chest x-rays DR JASSO
--- NOTE | 2019-04-11 13:06 | PN ---
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 (short form) - Note 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: Events noted drowsy but arousable Spiked a temp early this AM not in distress Vital Signs - 24 hr 04/10/19 04/10/19 04/10/19 15:00 16:15 16:30 Temperature 98.4 F 103.8 F H Pulse Rate 84 130 H Respiratory 18 18 Rate Blood Pressure 118/64 143/79 O2 Sat by Pulse Oximetry (%) 04/10/19 04/10/19 04/11/19 21:00 22:10 01:37 Temperature 99.2 F 98.4 F Pulse Rate 108 H 91 H Respiratory 20 20 Rate Blood Pressure 116/51 L 113/82 O2 Sat by Pulse 97 Oximetry (%) 04/11/19 04/11/19 05:18 09:00 Temperature 101.8 F H 99.2 F Pulse Rate 116 H 104 H Respiratory 20 18 Rate Blood Pressure 149/74 114/64 O2 Sat by Pulse Oximetry (%) Current Medications Generic Name Dose Route Start Last Admin Trade Name Freq PRN Reason Stop Dose Admin Acetaminophen 650 mg 04/10/19 17:47 04/11/19 05:24 Tylenol - PO 650 mg Q6H PRN Administration FEVER Albuterol/Ipratropium 1 amp 04/08/19 23:00 04/11/19 12:37 Duoneb - NEB 1 amp RQID [facility] Administration Anastrozole 1 mg 04/09/19 10:00 04/11/19 09:53 Arimidex - PO 1 mg DAILY [facility] Administration Atorvastatin Calcium 10 mg 04/08/19 22:00 04/10/19 21:55 Lipitor - PO 10 mg HS [facility] Administration Clonazepam 0.5 mg 04/09/19 06:00 04/11/19 05:23 Klonopin - PO 0.5 mg TID [facility] Administration Divalproex Sodium 250 mg 04/09/19 10:00 04/11/19 09:53 Depakote Sprinkle Caps - PO 250 mg BID [facility] Administration Donepezil HCl 10 mg 04/09/19 22:00 04/10/19 21:55 Aricept - PO 10 mg HS [facility] Administration Escitalopram Oxalate 20 mg 04/09/19 10:00 04/11/19 09:52 Lexapro - PO 20 mg DAILY [facility] Administration Folic Acid 1 mg 04/09/19 10:00 04/11/19 09:52 Folic Acid - PO 1 mg DAILY [facility] Administration Furosemide 20 mg 04/09/19 10:00 04/11/19 09:52 Lasix - PO 20 mg DAILY [facility] Administration Piperacillin Sod/Tazobactam 50 mls @ 100 mls/hr 04/09/19 13:15 04/11/19 09:52 Sod 3.375 gm/ Dextrose IVPB 100 mls/hr Q8H-IV [facility] Administration Protocol Metoprolol Tartrate 75 mg 04/08/19 23:00 04/11/19 09:52 Lopressor - PO 75 mg BID [facility] Administration Miconazole Nitrate 1 applic 04/09/19 10:00 04/11/19 09:54 Miconazole Nitrate TP 1 applic BID [facility] Administration Ofloxacin 2 drop 04/09/19 23:11 04/11/19 09:55 Ocuflox 0.3% Eye Drops - OU 2 drop Q4HWA [facility] Administration Pantoprazole Sodium 40 mg 04/09/19 10:00 04/11/19 10:31 Protonix Iv IVPUSH 40 mg DAILY [facility] Administration Rivaroxaban 20 mg 04/09/19 18:00 04/10/19 17:12 Xarelto PO 20 mg 1800 [facility] Administration Laboratory Results - last 24 hr 04/11/19 04/11/19 05:30 05:30 WBC 12.8 H RBC 3.22 L Hgb 10.1 L Hct 30.7 L D MCV 95.2 MCH 31.4 MCHC 33.0 RDW 14.6 Plt Count 220 D MPV 8.9 Sodium 145 Potassium 4.1 Chloride 108 H Carbon Dioxide 31 Anion Gap 6 L BUN 28.3 H Creatinine 0.8 Est GFR (CKD-EPI)AfAm 81.27 Est GFR (CKD-EPI)NonAf 70.12 Random Glucose 104 Calcium 8.9 Total Bilirubin 1.4 H AST 25 ALT 31 Alkaline Phosphatase 98 Total Protein 6.2 L Albumin 2.4 L Physical Examination Constitutional: Yes: Awake/ chronic ill appearance Eyes: Yes: conjuctiva clear Neck: Yes: WNL, Supple, Trachea Midline Cardiovascular: Yes: Tachycardia, Pulse Irregular, S1, S2 Respiratory: Yes: Diminished, no Rhonchi Gastrointestinal: Yes: soft Breast(s): Yes: Left (Mastectomy) Edema: No Peripheral Pulses WNL: Yes Neurological: Yes: drowsy A/P Abx nippv as needed continue present care supportive care Pt is DNR and DNI Cardiology , Pulmonary and ID eval noted troponins trending down-- demand ischemia repeat cultures, cxr on isolation for ESBL urine Problem List - Problems (1) Atrial fibrillation with RVR Code(s): I48.91 - UNSPECIFIED ATRIAL FIBRILLATION (2) COPD (chronic obstructive pulmonary disease) Code(s): J44.9 - CHRONIC OBSTRUCTIVE PULMONARY DISEASE, UNSPECIFIED (3) Elevated troponin Code(s): R79.89 - OTHER SPECIFIED ABNORMAL FINDINGS OF BLOOD CHEMISTRY (4) Systemic inflammatory response syndrome (SIRS) Code(s): R65.10 - SIRS OF NON-INFECTIOUS ORIGIN W/O ACUTE ORGAN DYSFUNCTION
--- NOTE | 2019-04-11 13:18 | PN ---
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, Physician History of Present Illness: stable no new issues - Current Medication List Current Medications: Active Medications Acetaminophen (Tylenol -) 650 mg PO Q6H PRN PRN Reason: FEVER Last Admin: 04/11/19 05:24 Dose: 650 mg Albuterol/Ipratropium (Duoneb -) 1 amp NEB RQID [facility] Last Admin: 04/11/19 12:37 Dose: 1 amp Anastrozole (Arimidex -) 1 mg PO DAILY [facility] Last Admin: 04/11/19 09:53 Dose: 1 mg Atorvastatin Calcium (Lipitor -) 10 mg PO HS [facility] Last Admin: 04/10/19 21:55 Dose: 10 mg Clonazepam (Klonopin -) 0.5 mg PO TID [facility] Last Admin: 04/11/19 05:23 Dose: 0.5 mg Divalproex Sodium (Depakote Sprinkle Caps -) 250 mg PO BID [facility] Last Admin: 04/11/19 09:53 Dose: 250 mg Donepezil HCl (Aricept -) 10 mg PO HS [facility] Last Admin: 04/10/19 21:55 Dose: 10 mg Escitalopram Oxalate (Lexapro -) 20 mg PO DAILY [facility] Last Admin: 04/11/19 09:52 Dose: 20 mg Folic Acid (Folic Acid -) 1 mg PO DAILY [facility] Last Admin: 04/11/19 09:52 Dose: 1 mg Furosemide (Lasix -) 20 mg PO DAILY [facility] Last Admin: 04/11/19 09:52 Dose: 20 mg Piperacillin Sod/Tazobactam (Sod 3.375 gm/ Dextrose) 50 mls @ 100 mls/hr IVPB Q8H-IV [facility]; Protocol Last Admin: 04/11/19 09:52 Dose: 100 mls/hr Metoprolol Tartrate (Lopressor -) 75 mg PO BID [facility] Last Admin: 04/11/19 09:52 Dose: 75 mg Miconazole Nitrate (Miconazole Nitrate) 1 applic TP BID [facility] Last Admin: 04/11/19 09:54 Dose: 1 applic Ofloxacin (Ocuflox 0.3% Eye Drops -) 2 drop OU Q4HWA [facility] Last Admin: 04/11/19 09:55 Dose: 2 drop Pantoprazole Sodium (Protonix Iv) 40 mg IVPUSH DAILY [facility] Last Admin: 04/11/19 10:31 Dose: 40 mg Rivaroxaban (Xarelto) 20 mg PO 1800 [facility] Last Admin: 04/10/19 17:12 Dose: 20 mg - Objective Vital Signs: Vital Signs Temperature 99.2 F 04/11/19 09:00 Pulse Rate 104 H 04/11/19 09:00 Respiratory Rate 18 04/11/19 09:00 Blood Pressure 114/64 04/11/19 09:00 O2 Sat by Pulse Oximetry (%) 97 04/10/19 21:00 Constitutional: Yes: No Distress, Calm Labs: CBC, BMP 04/11/19 05:30 04/11/19 05:30 INR, PTT INR 1.69 (0.83-1.09) H 04/08/19 10:55
--- NOTE | 2019-04-11 15:39 | PN ---
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, Physician Chief Complaint: Does not want to be touched. telem AF HR 90-70 History of Present Illness: 78 F with dementia, anxiety, CAD, Afib, COPD admitted with fever and is being treated for PNA. She is noted to have mildly elevated TP and Afib with HR in the low 100s. The patient is not able to contribute to the history due to her dementia. She is currently on Venti mask with O2 sat> 90%. - Current Medication List Current Medications: Active Medications Acetaminophen (Tylenol -) 650 mg PO Q6H PRN PRN Reason: FEVER Last Admin: 04/11/19 05:24 Dose: 650 mg Albuterol/Ipratropium (Duoneb -) 1 amp NEB RQID [facility] Last Admin: 04/11/19 12:37 Dose: 1 amp Anastrozole (Arimidex -) 1 mg PO DAILY [facility] Last Admin: 04/11/19 09:53 Dose: 1 mg Atorvastatin Calcium (Lipitor -) 10 mg PO HS [facility] Last Admin: 04/10/19 21:55 Dose: 10 mg Clonazepam (Klonopin -) 0.5 mg PO TID [facility] Last Admin: 04/11/19 13:57 Dose: 0.5 mg Divalproex Sodium (Depakote Sprinkle Caps -) 250 mg PO BID [facility] Last Admin: 04/11/19 09:53 Dose: 250 mg Donepezil HCl (Aricept -) 10 mg PO HS [facility] Last Admin: 04/10/19 21:55 Dose: 10 mg Escitalopram Oxalate (Lexapro -) 20 mg PO DAILY [facility] Last Admin: 04/11/19 09:52 Dose: 20 mg Folic Acid (Folic Acid -) 1 mg PO DAILY [facility] Last Admin: 04/11/19 09:52 Dose: 1 mg Furosemide (Lasix -) 20 mg PO DAILY [facility] Last Admin: 04/11/19 09:52 Dose: 20 mg Piperacillin Sod/Tazobactam (Sod 3.375 gm/ Dextrose) 50 mls @ 100 mls/hr IVPB Q8H-IV [facility]; Protocol Last Admin: 04/11/19 09:52 Dose: 100 mls/hr Metoprolol Tartrate (Lopressor -) 75 mg PO BID [facility] Last Admin: 04/11/19 09:52 Dose: 75 mg Miconazole Nitrate (Miconazole Nitrate) 1 applic TP BID [facility] Last Admin: 10/16/19 09:54 Dose: 1 applic Ofloxacin (Ocuflox 0.3% Eye Drops -) 2 drop OU Q4HWA [facility] Last Admin: 04/11/19 13:57 Dose: 2 drop Pantoprazole Sodium (Protonix Iv) 40 mg IVPUSH DAILY [facility] Last Admin: 04/11/19 10:31 Dose: 40 mg Rivaroxaban (Xarelto) 20 mg PO 1800 [facility] Last Admin: 04/10/19 17:12 Dose: 20 mg - Objective Vital Signs: Vital Signs Temperature 98.7 F 04/11/19 14:00 Pulse Rate 94 H 04/11/19 14:00 Respiratory Rate 18 04/11/19 09:00 Blood Pressure 97/57 L 04/11/19 14:00 O2 Sat by Pulse Oximetry (%) 97 04/11/19 09:00 Constitutional: Yes: No Distress (refused exam) Labs: CBC, BMP 04/11/19 05:30 04/11/19 05:30 INR, PTT INR 1.69 (0.83-1.09) H 04/08/19 10:55 Problem List - Problems (1) Atrial fibrillation with RVR Code(s): I48.91 - UNSPECIFIED ATRIAL FIBRILLATION Assessment/Plan Afib HR better controlled, likely exacerbated by low grade fever Continue Metoprolol 75mg bid on Xarelto. TP elevation is due to demand mediated ischemia. Medical management is advised. Will see as needed
[2019-04-11] MEDS: RIVAROXABAN 20 MG TABLET PO SCH (17:14)
[2019-04-11] MEDS ORDERED: PT OWN MED DRAWER 7, Y5N ONE ×2 (18:37→21:06)
[2019-04-11] MEDS ORDERED: ACETAMINOPHEN 1000 MG/100 ML VIAL (NON FORMULARY) IVPB ONE (21:40)
[2019-04-11] MEDS: ATORVASTATIN CA 10 MG TABLET (FP) PO SCH (22:18)
[2019-04-11] MEDS: DONEPEZIL HCL 10 MG TABLET (FP) PO SCH (22:18)
[2019-04-12] MEDS ORDERED: PIPERACILLIN/TAZOBACTAM 3.375 GM VIAL IVPB ONE ×2 (02:32→08:48)
[2019-04-12] MEDS ORDERED: DEXTROSE 5%-WATER - 50 ML IVPB ONE ×2 (02:32→08:49)
[2019-04-12] MEDS: PIPERACILLIN/TAZOB 3.375 GM 3.375 GM in DEXTROSE 5%-WATER - 50 ML IVPB SCH ×2 (02:36→10:02)
[2019-04-12] MEDS: OFLOXACIN 0.3% OPHTHALMIC SOLUTION 5 ML BOTTLE OU SCH ×5 (05:53→23:01)
[2019-04-12] MEDS: clonazePAM 0.5 MG TABLET PO SCH ×3 (05:53→23:00)
[2019-04-12] MEDS: ALBUTEROL SO4 2.5/IPRATROPIUM 0.5 INH SOL 3 ML VIAL.NEB. NEB SCH ×4 (07:55→20:50)
[2019-04-12] MEDS ORDERED: PT OWN MED DRAWER 7, Y5N ONE ×4 (08:49→22:10)
[2019-04-12] MEDS: DIVALPROEX SODIUM 125 MG SPRINKLE CAPS PO SCH ×2 (10:02→23:00)
[2019-04-12] MEDS: FOLIC ACID 1 MG TABLET (FP) PO SCH (10:02)
[2019-04-12] MEDS: PANTOPRAZOLE SODIUM 40 MG VIAL IVPUSH SCH (10:02)
[2019-04-12] MEDS: ANASTROZOLE 1 MG TABLET PO SCH (10:02)
[2019-04-12] MEDS: FUROSEMIDE 20 MG TABLET (FP) PO SCH (10:02)
[2019-04-12] MEDS: METOPROLOL TARTRATE 25 MG TABLET (FP) PO SCH ×2 (10:03→22:58)
[2019-04-12] MEDS: ESCITALOPRAM OXALATE 20 MG TABLET (FP) PO SCH (10:03)
[2019-04-12] MEDS: MICONAZOLE NITRATE 28 GM TUBE TP SCH ×2 (10:05→23:01)
--- NOTE | 2019-04-12 12:40 | PN ---
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 (short form) - Note 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: Events noted more awake today had high temp last night Vital Signs - 24 hr 04/11/19 04/11/19 04/11/19 14:00 18:16 20:07 Temperature 98.7 F 99.7 F H Pulse Rate 94 H 112 H Respiratory 20 Rate Blood Pressure 97/57 L 119/66 O2 Sat by Pulse 96 Oximetry (%) 04/11/19 04/12/19 04/12/19 20:25 02:00 06:00 Temperature 104.3 F H 99.4 F 99.1 F Pulse Rate 125 H 84 Respiratory 20 20 20 Rate Blood Pressure 143/88 110/66 123/77 O2 Sat by Pulse Oximetry (%) 04/12/19 10:00 Temperature 99.6 F Pulse Rate 90 Respiratory 18 Rate Blood Pressure 116/68 O2 Sat by Pulse Oximetry (%) Current Medications Generic Name Dose Route Start Last Admin Trade Name Freq PRN Reason Stop Dose Admin Acetaminophen 650 mg 04/10/19 17:47 04/11/19 05:24 Tylenol - PO 650 mg Q6H PRN Administration FEVER Albuterol/Ipratropium 1 amp 04/08/19 23:00 04/12/19 07:55 Duoneb - NEB 1 amp RQID [facility] Administration Anastrozole 1 mg 04/09/19 10:00 04/12/19 10:02 Arimidex - PO 1 mg DAILY [facility] Administration Atorvastatin Calcium 10 mg 04/08/19 22:00 04/11/19 22:18 Lipitor - PO 10 mg HS [facility] Administration Clonazepam 0.5 mg 04/09/19 06:00 04/12/19 05:53 Klonopin - PO 0.5 mg TID [facility] Administration Divalproex Sodium 250 mg 04/09/19 10:00 04/12/19 10:02 Depakote Sprinkle Caps - PO 250 mg BID [facility] Administration Donepezil HCl 10 mg 04/09/19 22:00 04/11/19 22:18 Aricept - PO 10 mg HS [facility] Administration Escitalopram Oxalate 20 mg 04/09/19 10:00 04/12/19 10:03 Lexapro - PO 20 mg DAILY [facility] Administration Folic Acid 1 mg 04/09/19 10:00 04/12/19 10:02 Folic Acid - PO 1 mg DAILY [facility] Administration Furosemide 20 mg 04/09/19 10:00 04/12/19 10:02 Lasix - PO 20 mg DAILY [facility] Administration Piperacillin Sod/Tazobactam 50 mls @ 100 mls/hr 04/09/19 13:15 04/12/19 10:02 Sod 3.375 gm/ Dextrose IVPB 100 mls/hr Q8H-IV [facility] Administration Protocol Metoprolol Tartrate 75 mg 04/08/19 23:00 04/12/19 10:03 Lopressor - PO 75 mg BID [facility] Administration Miconazole Nitrate 1 applic 04/09/19 10:00 04/12/19 10:05 Miconazole Nitrate TP 1 applic BID [facility] Administration Ofloxacin 2 drop 04/09/19 23:11 04/12/19 10:04 Ocuflox 0.3% Eye Drops - OU 2 drop Q4HWA [facility] Administration Pantoprazole Sodium 40 mg 04/09/19 10:00 04/12/19 10:02 Protonix Iv IVPUSH 40 mg DAILY [facility] Administration Rivaroxaban 20 mg 04/09/19 18:00 04/11/19 17:14 Xarelto PO 20 mg 1800 [facility] Administration Physical Examination Constitutional: Yes: Awake/ chronic ill appearance Eyes: Yes: conjuctiva clear Neck: Yes: WNL, Supple, Trachea Midline Cardiovascular: Yes: Tachycardia, Pulse Irregular, S1, S2 Respiratory: Yes: Diminished, no Rhonchi Gastrointestinal: Yes: soft Breast(s): Yes: Left (Mastectomy) Edema: No Peripheral Pulses WNL: Yes Neurological: Yes: drowsy A/P Abx repeated cultures CXR-- no official read yet -- but appears that right upper lobe infiltrate is less continue present care supportive care Pt is DNR and DNI swallow eval-- r/o aspiration Cardiology , Pulmonary and ID eval noted troponins trending down-- demand ischemia on isolation for ESBL urine Problem List - Problems (1) Atrial fibrillation with RVR Code(s): I48.91 - UNSPECIFIED ATRIAL FIBRILLATION (2) COPD (chronic obstructive pulmonary disease) Code(s): J44.9 - CHRONIC OBSTRUCTIVE PULMONARY DISEASE, UNSPECIFIED (3) Elevated troponin Code(s): R79.89 - OTHER SPECIFIED ABNORMAL FINDINGS OF BLOOD CHEMISTRY (4) Systemic inflammatory response syndrome (SIRS) Code(s): R65.10 - SIRS OF NON-INFECTIOUS ORIGIN W/O ACUTE ORGAN DYSFUNCTION
--- NOTE | 2019-04-12 13:07 | PN ---
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 (short form) - Note 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: Drowsy but arousable. No acute distress. No acute events overnight. Intake & Output 04/09/19 04/10/19 04/11/19 04/12/19 23:59 23:59 23:59 23:59 Intake Total 10 440 430 200 Balance 10 440 430 200 Weight 133 lb 133 lb Last Vital Signs Temp Pulse Resp BP Pulse Ox 99.6 F 90 18 116/68 96 04/12/19 10:00 04/12/19 10:00 04/12/19 10:00 04/12/19 10:00 04/11/19 20:07 Active Medications Acetaminophen (Tylenol -) 650 mg PO Q6H PRN PRN Reason: FEVER Last Admin: 04/11/19 05:24 Dose: 650 mg Albuterol/Ipratropium (Duoneb -) 1 amp NEB RQID [facility] Last Admin: 04/12/19 07:55 Dose: 1 amp Anastrozole (Arimidex -) 1 mg PO DAILY [facility] Last Admin: 04/12/19 10:02 Dose: 1 mg Atorvastatin Calcium (Lipitor -) 10 mg PO HS [facility] Last Admin: 04/11/19 22:18 Dose: 10 mg Clonazepam (Klonopin -) 0.5 mg PO TID [facility] Last Admin: 04/12/19 05:53 Dose: 0.5 mg Divalproex Sodium (Depakote Sprinkle Caps -) 250 mg PO BID [facility] Last Admin: 04/12/19 10:02 Dose: 250 mg Donepezil HCl (Aricept -) 10 mg PO HS [facility] Last Admin: 04/11/19 22:18 Dose: 10 mg Escitalopram Oxalate (Lexapro -) 20 mg PO DAILY [facility] Last Admin: 04/12/19 10:03 Dose: 20 mg Folic Acid (Folic Acid -) 1 mg PO DAILY [facility] Last Admin: 04/12/19 10:02 Dose: 1 mg Furosemide (Lasix -) 20 mg PO DAILY [facility] Last Admin: 04/12/19 10:02 Dose: 20 mg Piperacillin Sod/Tazobactam (Sod 3.375 gm/ Dextrose) 50 mls @ 100 mls/hr IVPB Q8H-IV [facility]; Protocol Last Admin: 04/12/19 10:02 Dose: 100 mls/hr Metoprolol Tartrate (Lopressor -) 75 mg PO BID [facility] Last Admin: 04/12/19 10:03 Dose: 75 mg Miconazole Nitrate (Miconazole Nitrate) 1 applic TP BID [facility] Last Admin: 04/12/19 10:05 Dose: 1 applic Ofloxacin (Ocuflox 0.3% Eye Drops -) 2 drop OU Q4HWA [facility] Last Admin: 04/12/19 10:04 Dose: 2 drop Pantoprazole Sodium (Protonix Iv) 40 mg IVPUSH DAILY [facility] Last Admin: 04/12/19 10:02 Dose: 40 mg Rivaroxaban (Xarelto) 20 mg PO 1800 [facility] Last Admin: 04/11/19 17:14 Dose: 20 mg Constitutional: Yes: Drowsy but arousable Eyes: Yes: WNL HENT: Yes: WNL Neck: Yes: WNL Cardiovascular: Yes: Pulse Irregular, S1, S2 Respiratory: Yes: Diminished Gastrointestinal: Yes: Normal Bowel Sounds, Soft Extremities: Yes: WNL Edema: No Labs: Assessment/Plan Problem List - Problems (1) Anxiety and depression Code(s): F41.9 - ANXIETY DISORDER, UNSPECIFIED; F32.9 - MAJOR DEPRESSIVE DISORDER, SINGLE EPISODE, UNSPECIFIED (2) Asthma Code(s): J45.909 - UNSPECIFIED ASTHMA, UNCOMPLICATED (3) COPD (chronic obstructive pulmonary disease) Code(s): J44.9 - CHRONIC OBSTRUCTIVE PULMONARY DISEASE, UNSPECIFIED (4) Elevated troponin Code(s): R79.89 - OTHER SPECIFIED ABNORMAL FINDINGS OF BLOOD CHEMISTRY (5) GERD (gastroesophageal reflux disease) Code(s): K21.9 - GASTRO-ESOPHAGEAL REFLUX DISEASE WITHOUT ESOPHAGITIS (6) History of dysphagia Code(s): Z87.19 - PERSONAL HISTORY OF OTHER DISEASES OF THE DIGESTIVE SYSTEM (7) Acute respiratory failure with hypoxia Code(s): J96.01 - ACUTE RESPIRATORY FAILURE WITH HYPOXIA (8) Atrial fibrillation Code(s): I48.91 - UNSPECIFIED ATRIAL FIBRILLATION Qualifiers: Atrial fibrillation type: persistent (9) Coronary artery disease Code(s): I25.10 - ATHSCL HEART DISEASE OF [place] CORONARY ARTERY W/O ANG PCTRS Qualifiers: Coronary Disease-Associated Artery/Lesion type: [place] artery [place] vs. transplanted heart: [place] heart Associated angina: without angina Qualified Code(s): I25.10 - Atherosclerotic heart disease of [place] coronary artery without angina pectoris (10) Dementia Code(s): F03.90 - UNSPECIFIED DEMENTIA WITHOUT BEHAVIORAL DISTURBANCE Qualifiers: Dementia type: unspecified type Dementia behavioral disturbance: without behavioral disturbance Qualified Code(s): F03.90 - Unspecified dementia without behavioral disturbance (11) Diastolic dysfunction Code(s): I51.9 - HEART DISEASE, UNSPECIFIED (12) Hyperlipidemia Code(s): E78.5 - HYPERLIPIDEMIA, UNSPECIFIED Qualifiers: Hyperlipidemia type: pure hypercholesterolemia Qualified Code(s): E78.00 - Pure hypercholesterolemia, unspecified; E78.0 - Pure hypercholesterolemia (13) Hypoxia Code(s): R09.02 - HYPOXEMIA (14) Pneumonia Code(s): J18.9 - PNEUMONIA, UNSPECIFIED ORGANISM Qualifiers: Pneumonia type: aspiration pneumonia Assessment/Plan ABX per ID O2 to maintain O2 sat 90% Aspiration precautions BD TX Lalit Lindquist Problem List - Problems (1) Anxiety and depression Code(s): F41.9 - ANXIETY DISORDER, UNSPECIFIED; F32.9 - MAJOR DEPRESSIVE DISORDER, SINGLE EPISODE, UNSPECIFIED (2) Asthma Code(s): J45.909 - UNSPECIFIED ASTHMA, UNCOMPLICATED (3) COPD (chronic obstructive pulmonary disease) Code(s): J44.9 - CHRONIC OBSTRUCTIVE PULMONARY DISEASE, UNSPECIFIED (4) Elevated troponin Code(s): R79.89 - OTHER SPECIFIED ABNORMAL FINDINGS OF BLOOD CHEMISTRY (5) GERD (gastroesophageal reflux disease) Code(s): K21.9 - GASTRO-ESOPHAGEAL REFLUX DISEASE WITHOUT ESOPHAGITIS (6) History of dysphagia Code(s): Z87.19 - PERSONAL HISTORY OF OTHER DISEASES OF THE DIGESTIVE SYSTEM (7) Acute respiratory failure with hypoxia Code(s): J96.01 - ACUTE RESPIRATORY FAILURE WITH HYPOXIA (8) Atrial fibrillation Code(s): I48.91 - UNSPECIFIED ATRIAL FIBRILLATION Qualifiers: Atrial fibrillation type: persistent (9) Coronary artery disease Code(s): I25.10 - ATHSCL HEART DISEASE OF [place] CORONARY ARTERY W/O ANG PCTRS Qualifiers: Coronary Disease-Associated Artery/Lesion type: [place] artery [place] vs. transplanted heart: [place] heart Associated angina: without angina Qualified Code(s): I25.10 - Atherosclerotic heart disease of [place] coronary artery without angina pectoris (10) Dementia Code(s): F03.90 - UNSPECIFIED DEMENTIA WITHOUT BEHAVIORAL DISTURBANCE Qualifiers: Dementia type: unspecified type Dementia behavioral disturbance: without behavioral disturbance Qualified Code(s): F03.90 - Unspecified dementia without behavioral disturbance (11) Diastolic dysfunction Code(s): I51.9 - HEART DISEASE, UNSPECIFIED (12) Hyperlipidemia Code(s): E78.5 - HYPERLIPIDEMIA, UNSPECIFIED Qualifiers: Hyperlipidemia type: pure hypercholesterolemia Qualified Code(s): E78.00 - Pure hypercholesterolemia, unspecified; E78.0 - Pure hypercholesterolemia (13) Hypoxia Code(s): R09.02 - HYPOXEMIA (14) Pneumonia Code(s): J18.9 - PNEUMONIA, UNSPECIFIED ORGANISM Qualifiers: Pneumonia type: aspiration pneumonia
--- NOTE | 2019-04-12 14:01 | PN ---
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, Physician History of Present Illness: spiked high fevers more awake and alert blood cx were send - Current Medication List Current Medications: Active Medications Acetaminophen (Tylenol -) 650 mg PO Q6H PRN PRN Reason: FEVER Last Admin: 04/11/19 05:24 Dose: 650 mg Albuterol/Ipratropium (Duoneb -) 1 amp NEB RQID [facility] Last Admin: 04/12/19 07:55 Dose: 1 amp Anastrozole (Arimidex -) 1 mg PO DAILY [facility] Last Admin: 04/12/19 10:02 Dose: 1 mg Atorvastatin Calcium (Lipitor -) 10 mg PO HS [facility] Last Admin: 04/11/19 22:18 Dose: 10 mg Clonazepam (Klonopin -) 0.5 mg PO TID [facility] Last Admin: 04/12/19 13:41 Dose: 0.5 mg Divalproex Sodium (Depakote Sprinkle Caps -) 250 mg PO BID [facility] Last Admin: 04/12/19 10:02 Dose: 250 mg Donepezil HCl (Aricept -) 10 mg PO HS [facility] Last Admin: 04/11/19 22:18 Dose: 10 mg Escitalopram Oxalate (Lexapro -) 20 mg PO DAILY [facility] Last Admin: 04/12/19 10:03 Dose: 20 mg Folic Acid (Folic Acid -) 1 mg PO DAILY [facility] Last Admin: 04/12/19 10:02 Dose: 1 mg Furosemide (Lasix -) 20 mg PO DAILY [facility] Last Admin: 04/12/19 10:02 Dose: 20 mg Piperacillin Sod/Tazobactam (Sod 3.375 gm/ Dextrose) 50 mls @ 100 mls/hr IVPB Q8H-IV [facility]; Protocol Last Admin: 04/12/19 10:02 Dose: 100 mls/hr Metoprolol Tartrate (Lopressor -) 75 mg PO BID [facility] Last Admin: 04/12/19 10:03 Dose: 75 mg Miconazole Nitrate (Miconazole Nitrate) 1 applic TP BID [facility] Last Admin: 04/12/19 10:05 Dose: 1 applic Ofloxacin (Ocuflox 0.3% Eye Drops -) 2 drop OU Q4HWA [facility] Last Admin: 04/12/19 13:42 Dose: 2 drop Pantoprazole Sodium (Protonix Iv) 40 mg IVPUSH DAILY [facility] Last Admin: 04/12/19 10:02 Dose: 40 mg Rivaroxaban (Xarelto) 20 mg PO 1800 [facility] Last Admin: 04/11/19 17:14 Dose: 20 mg - Objective Vital Signs: Vital Signs Temperature 99.6 F 04/12/19 10:00 Pulse Rate 90 04/12/19 10:00 Respiratory Rate 18 04/12/19 10:00 Blood Pressure 116/68 04/12/19 10:00 O2 Sat by Pulse Oximetry (%) 96 04/11/19 20:07 Constitutional: Yes: No Distress, Calm Cardiovascular: Yes: S1, S2 Respiratory: Yes: Regular, CTA Bilaterally Gastrointestinal: Yes: Normal Bowel Sounds, Soft Musculoskeletal: Yes: WNL Extremities: Yes: WNL Neurological: Yes: Alert, Other Psychiatric: Yes: Other Labs: CBC, BMP 04/11/19 05:30 04/11/19 05:30 INR, PTT INR 1.69 (0.83-1.09) H 04/08/19 10:55 Assessment/Plan Problem List - Problems (1) Atrial fibrillation with RVR Code(s): I48.91 - UNSPECIFIED ATRIAL FIBRILLATION (2) COPD (chronic obstructive pulmonary disease) Code(s): J44.9 - CHRONIC OBSTRUCTIVE PULMONARY DISEASE, UNSPECIFIED (3) Elevated troponin Code(s): R79.89 - OTHER SPECIFIED ABNORMAL FINDINGS OF BLOOD CHEMISTRY (4) Systemic inflammatory response syndrome (SIRS) Code(s): R65.10 - SIRS OF NON-INFECTIOUS ORIGIN W/O ACUTE ORGAN DYSFUNCTION uti fever plan continue abx organism noted unfortunately cannot use carbapenam will stop zosyn and put patient on avicaz
--- NOTE | 2019-04-12 14:14 | CONSULT ---
Admitting History and Physical - Primary Care Physician PCP: Sasha Paniagua - Admission History of Present Illness: 78 F with dementia, anxiety, CAD, Afib, COPD admitted with fever and is being treated for PNA. Selected Entries 04/10/19 04/10/19 04/10/19 01:50 05:59 09:00 Breakfast Diet Tolerated Lunch Supper Temperature 100.8 F H 100.9 F H 99.4 F 04/10/19 04/10/19 04/10/19 15:00 16:15 22:10 Breakfast 75% Diet Tolerated Poor Lunch 50% Supper Temperature 98.4 F 103.8 F H 99.2 F 04/11/19 04/11/19 04/11/19 01:37 05:18 09:00 Breakfast Diet Tolerated Lunch Supper Temperature 98.4 F 101.8 F H 99.2 F 04/11/19 04/11/19 04/11/19 14:00 18:16 20:25 Breakfast 50% Diet Tolerated Lunch 75% Supper Temperature 98.7 F 99.7 F H 104.3 F H 04/11/19 04/12/19 04/12/19 23:31 02:00 06:00 Breakfast Diet Tolerated Well Lunch Supper 75% Temperature 99.4 F 99.1 F 04/12/19 04/12/19 10:00 11:25 Breakfast 50% Diet Tolerated Fair Lunch Supper Temperature 99.6 F Laboratory Tests 04/08/19 04/11/19 10:55 05:30 WBC 13.2 H 12.8 H On dysph puree/thin liquid. Ensure pudding/magic cup MBS 11/14/18 (-) aspiration but with persistant cough. Suggested continue dys chopped/nectr, until improved, then assess for possible upgrade to thin liquid at [place]. - Past Medical History CARGOMAN: Yes: Dementia Cardiovascular: Yes: AFIB, CHF, HTN, Hyperlipdemia, Other (ASHD) Pulmonary: Yes: Asthma, COPD, Pneumonia Gastrointestinal: Yes: GERD, Other (Appendectomy at age 4 and, reexploration, laparotomy 5 years ago) Hepatobiliary: Yes: Cholecystitis (son gives h/o cholecystititis in past) ...: No Psych: Yes: Anxiety - Past Surgical History Past Surgical History: Yes: Appendectomy, Mastectomy (left sided) - Advance Directives Advance Directives: Yes: Health Care Proxy, DNR - Smoking History Smoking history: Never smoked Have you smoked in the past 12 months: No - Alcohol/Substance Use Hx Alcohol Use: No History of Substance Use: reports: None - Social History ADL: Support Services History of Recent Travel: No History - Admission Reason For Visit: ATRIAL FIBRILLATION/HYPOXIA/SEPSIS/PNEUMONIA - Hearing Hearing: Normal Hearing Aide: No With Patient: No Speech Evaluation - Communication Primary Language: OCC[place] - Speech Characteristics Articulation: Yes: Precise - Swallow Evaluation/Bedside Assessment A-P Transit: WFL
[2019-04-12] MEDS: CEFTAZIDIME/AVIBACTAM 2.5 GM in DEXTROSE 5%-WATER - 250 ML IVPB SCH ×2 (15:58→17:50)
[2019-04-12] MEDS: RIVAROXABAN 20 MG TABLET PO SCH (17:49)
[2019-04-12] MEDS: ACETAMINOPHEN 325 MG TABLET (FP) PO PRN (17:49)
[2019-04-12] MEDS: ATORVASTATIN CA 10 MG TABLET (FP) PO SCH (23:00)
[2019-04-12] MEDS: DONEPEZIL HCL 10 MG TABLET (FP) PO SCH (23:00)
[2019-04-13] MEDS: CEFTAZIDIME/AVIBACTAM 2.5 GM in DEXTROSE 5%-WATER - 250 ML IVPB SCH ×3 (02:45→19:21)
[2019-04-13] MEDS: clonazePAM 0.5 MG TABLET PO SCH ×3 (06:19→22:02)
[2019-04-13] MEDS: OFLOXACIN 0.3% OPHTHALMIC SOLUTION 5 ML BOTTLE OU SCH ×5 (06:19→23:00)
[2019-04-13] MEDS: ALBUTEROL SO4 2.5/IPRATROPIUM 0.5 INH SOL 3 ML VIAL.NEB. NEB SCH ×4 (07:35→20:40)
[2019-04-13 08:08] LABS: BASO % 0.6 % (0-2.0); EOS % 6.9 % (0-4.5); LYMPH % 16.4 % (8-40); MCH 31.6 pg (25.7-33.7); MCHC 33.4 g/dl (32.0-36.0); MEAN CELL VOLUME 94.4 fl (80-96); MEAN PLT VOLUME 8.7 fl (7.5-11.1); MONO % 8.7 % (3.8-10.2); NEUT % 67.4 % (42.8-82.8); PLATELET COUNT 256 K/MM3 (134-434); RBC 3.18 M/mm3 (3.60-5.2); RDW 14.6 % (11.6-15.6); WHITE BLOOD COUNT 7.9 K/mm3 (4.0-10.0)
[2019-04-13 08:33] LABS: ALBUMIN 2.2 g/dl (3.4-5.0); BILIRUBIN,TOTAL 1.1 mg/dL (0.2-1); BLOOD UREA NITROGEN 28.4 mg/dL (7-18); CALCIUM 8.8 mg/dL (8.5-10.1); CREATININE 0.8 mg/dL (0.55-1.3); POTASSIUM 4.3 mmol/L (3.5-5.1); TOT PROT 5.7 g/dl (6.4-8.2)
[2019-04-13] MEDS: ANASTROZOLE 1 MG TABLET PO SCH (10:31)
[2019-04-13] MEDS: DIVALPROEX SODIUM 125 MG SPRINKLE CAPS PO SCH ×2 (10:32→22:08)
[2019-04-13] MEDS: FOLIC ACID 1 MG TABLET (FP) PO SCH (10:33)
[2019-04-13] MEDS: ESCITALOPRAM OXALATE 20 MG TABLET (FP) PO SCH (10:34)
[2019-04-13] MEDS: FUROSEMIDE 20 MG TABLET (FP) PO SCH (10:34)
[2019-04-13] MEDS: METOPROLOL TARTRATE 25 MG TABLET (FP) PO SCH ×2 (10:35→22:03)
[2019-04-13] MEDS: PANTOPRAZOLE SODIUM 40 MG VIAL IVPUSH SCH (10:36)
[2019-04-13] MEDS ORDERED: PT OWN MED DRAWER 7, Y5N ONE ×3 (11:13→22:06)
--- NOTE | 2019-04-13 11:33 | PN ---
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, Physician History of Present Illness: pulmonary drowsy,-resp distress - Current Medication List Current Medications: Active Medications Acetaminophen (Tylenol -) 650 mg PO Q6H PRN PRN Reason: FEVER Last Admin: 04/12/19 17:49 Dose: 650 mg Albuterol/Ipratropium (Duoneb -) 1 amp NEB RQID [facility] Last Admin: 04/13/19 07:35 Dose: Not Given Anastrozole (Arimidex -) 1 mg PO DAILY [facility] Last Admin: 04/12/19 10:02 Dose: 1 mg Atorvastatin Calcium (Lipitor -) 10 mg PO HS [facility] Last Admin: 04/12/19 23:00 Dose: 10 mg Clonazepam (Klonopin -) 0.5 mg PO TID [facility] Last Admin: 04/13/19 06:19 Dose: 0.5 mg Divalproex Sodium (Depakote Sprinkle Caps -) 250 mg PO BID [facility] Last Admin: 04/12/19 23:00 Dose: 250 mg Donepezil HCl (Aricept -) 10 mg PO [facility] Last Admin: 04/12/19 23:00 Dose: 10 mg Escitalopram Oxalate (Lexapro -) 20 mg PO DAILY [facility] Last Admin: 04/12/19 10:03 Dose: 20 mg Folic Acid (Folic Acid -) 1 mg PO DAILY [facility] Last Admin: 04/12/19 10:02 Dose: 1 mg Furosemide (Lasix -) 20 mg PO DAILY [facility] Last Admin: 04/12/19 10:02 Dose: 20 mg Ceftazidime/Avibactam 2.5 gm/ (Dextrose) 250 mls @ 125 mls/hr IVPB Q8H-IV [facility] Last Admin: 04/13/19 02:45 Dose: 125 mls/hr Metoprolol Tartrate (Lopressor -) 75 mg PO BID [facility] Last Admin: 04/12/19 22:58 Dose: 75 mg Miconazole Nitrate (Miconazole Nitrate) 1 applic TP BID [facility] Last Admin: 04/12/19 23:01 Dose: 1 applic Ofloxacin (Ocuflox 0.3% Eye Drops -) 2 drop OU Q4HWA [facility] Last Admin: 04/13/19 06:19 Dose: 2 drop Pantoprazole Sodium (Protonix Iv) 40 mg IVPUSH DAILY [facility] Last Admin: 10/17/19 10:02 Dose: 40 mg Rivaroxaban (Xarelto) 20 mg PO 1800 [facility] Last Admin: 04/12/19 17:49 Dose: 20 mg - Objective Vital Signs: Vital Signs Temperature 97.8 F 04/13/19 10:00 Pulse Rate 96 H 04/13/19 10:00 Respiratory Rate 18 04/13/19 10:00 Blood Pressure 136/82 04/13/19 10:00 O2 Sat by Pulse Oximetry (%) 94 L 04/12/19 21:00 Constitutional: Yes: Well Nourished, Other (drowsy) Eyes: Yes: WNL HENT: Yes: WNL Neck: Yes: WNL Cardiovascular: Yes: Pulse Irregular, S1, S2 Respiratory: Yes: Diminished, Other (poor inspiratory effort) Gastrointestinal: Yes: Normal Bowel Sounds, Soft Extremities: Yes: WNL Edema: No Labs: CBC, BMP 04/13/19 06:10 04/13/19 06:10 INR, PTT INR 1.69 (0.83-1.09) H 04/08/19 10:55 Assessment/Plan Problem List - Problems (1) Anxiety and depression Code(s): F41.9 - ANXIETY DISORDER, UNSPECIFIED; F32.9 - MAJOR DEPRESSIVE DISORDER, SINGLE EPISODE, UNSPECIFIED (2) Asthma Code(s): J45.909 - UNSPECIFIED ASTHMA, UNCOMPLICATED (3) COPD (chronic obstructive pulmonary disease) Code(s): J44.9 - CHRONIC OBSTRUCTIVE PULMONARY DISEASE, UNSPECIFIED (4) Elevated troponin Code(s): R79.89 - OTHER SPECIFIED ABNORMAL FINDINGS OF BLOOD CHEMISTRY (5) GERD (gastroesophageal reflux disease) Code(s): K21.9 - GASTRO-ESOPHAGEAL REFLUX DISEASE WITHOUT ESOPHAGITIS (6) History of dysphagia Code(s): Z87.19 - PERSONAL HISTORY OF OTHER DISEASES OF THE DIGESTIVE SYSTEM (7) Acute respiratory failure with hypoxia Code(s): J96.01 - ACUTE RESPIRATORY FAILURE WITH HYPOXIA (8) Atrial fibrillation Code(s): I48.91 - UNSPECIFIED ATRIAL FIBRILLATION Qualifiers: Atrial fibrillation type: persistent (9) Coronary artery disease Code(s): I25.10 - ATHSCL HEART DISEASE OF [place] CORONARY ARTERY W/O ANG PCTRS Qualifiers: Coronary Disease-Associated Artery/Lesion type: [place] artery [place] vs. transplanted heart: [place] heart Associated angina: without angina Qualified Code(s): I25.10 - Atherosclerotic heart disease of [place] coronary artery without angina pectoris (10) Dementia Code(s): F03.90 - UNSPECIFIED DEMENTIA WITHOUT BEHAVIORAL DISTURBANCE Qualifiers: Dementia type: unspecified type Dementia behavioral disturbance: without behavioral disturbance Qualified Code(s): F03.90 - Unspecified dementia without behavioral disturbance (11) Diastolic dysfunction Code(s): I51.9 - HEART DISEASE, UNSPECIFIED (12) Hyperlipidemia Code(s): E78.5 - HYPERLIPIDEMIA, UNSPECIFIED Qualifiers: Hyperlipidemia type: pure hypercholesterolemia Qualified Code(s): E78.00 - Pure hypercholesterolemia, unspecified; E78.0 - Pure hypercholesterolemia (13) Hypoxia Code(s): R09.02 - HYPOXEMIA (14) Pneumonia Code(s): J18.9 - PNEUMONIA, UNSPECIFIED ORGANISM Qualifiers: Pneumonia type: aspiration pneumonia Assessment/Plan ABX per ID NIPPV support as needed O2 to maintain O2 sat 90% Aspiration precautions BD TX Xarelto F/U Chest x-rays DR JASSO
[2019-04-13] MEDS: MICONAZOLE NITRATE 28 GM TUBE TP SCH ×2 (11:35→22:59)
--- NOTE | 2019-04-13 13:09 | PN ---
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 (short form) - Note 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: Alert/ awake comfortable denies pain All f/u noted continue to have fever Vital Signs Temp 97.8 F 04/13/19 10:00 Pulse 96 H 04/13/19 10:00 Resp 18 04/13/19 10:00 BP 136/82 04/13/19 10:00 Pulse Ox 94 L 04/12/19 21:00 Intake & Output 04/12/19 04/13/19 04/13/19 23:59 11:59 23:59 Intake Total 110 250 Balance 110 250 Intake: IV 10 250 sl 10 250 Oral 100 Other: Voiding Method Incontinent # Unmeasured Voids Void 2 Bowel Movement Yes # Bowel Movements 1 Active Medications Acetaminophen (Tylenol -) 650 mg PO Q6H PRN PRN Reason: FEVER Last Admin: 04/12/19 17:49 Dose: 650 mg Albuterol/Ipratropium (Duoneb -) 1 amp NEB RQID [facility] Last Admin: 04/13/19 11:31 Dose: 1 amp Anastrozole (Arimidex -) 1 mg PO DAILY [facility] Last Admin: 04/13/19 10:31 Dose: 1 mg Atorvastatin Calcium (Lipitor -) 10 mg PO HS [facility] Last Admin: 04/12/19 23:00 Dose: 10 mg Clonazepam (Klonopin -) 0.5 mg PO TID [facility] Last Admin: 04/13/19 06:19 Dose: 0.5 mg Divalproex Sodium (Depakote Sprinkle Caps -) 250 mg PO BID [facility] Last Admin: 04/13/19 10:32 Dose: 250 mg Donepezil HCl (Aricept -) 10 mg PO HS [facility] Last Admin: 04/12/19 23:00 Dose: 10 mg Escitalopram Oxalate (Lexapro -) 20 mg PO DAILY [facility] Last Admin: 04/13/19 10:34 Dose: 20 mg Folic Acid (Folic Acid -) 1 mg PO DAILY [facility] Last Admin: 04/13/19 10:33 Dose: 1 mg Furosemide (Lasix -) 20 mg PO DAILY [facility] Last Admin: 04/13/19 10:34 Dose: 20 mg Ceftazidime/Avibactam 2.5 gm/ (Dextrose) 250 mls @ 125 mls/hr IVPB Q8H-IV [facility] Last Admin: 04/13/19 10:31 Dose: 125 mls/hr Metoprolol Tartrate (Lopressor -) 75 mg PO BID [facility] Last Admin: 04/13/19 10:35 Dose: 75 mg Miconazole Nitrate (Miconazole Nitrate) 1 applic TP BID [facility] Last Admin: 04/13/19 11:35 Dose: 1 applic Ofloxacin (Ocuflox 0.3% Eye Drops -) 2 drop OU Q4HWA [facility] Last Admin: 04/13/19 06:19 Dose: 2 drop Pantoprazole Sodium (Protonix Iv) 40 mg IVPUSH DAILY [facility] Last Admin: 04/13/19 10:36 Dose: 40 mg Rivaroxaban (Xarelto) 20 mg PO 1800 [facility] Last Admin: 04/12/19 17:49 Dose: 20 mg CBC, BMP 04/13/19 06:10 04/13/19 06:10 Microbiology 04/08/19 11:20 Blood Culture - Final Blood - Peripheral Venous NO GROWTH AFTER 5 DAYS INCUBATION 04/08/19 10:55 Blood Culture - Final Blood - Peripheral Venous NO GROWTH AFTER 5 DAYS INCUBATION 04/11/19 23:00 Blood Culture - Preliminary Blood - Peripheral Venous NO GROWTH OBTAINED AFTER 24 HOURS, INCUBATION TO CONTINUE FOR 4 DAYS. 04/11/19 23:00 Blood Culture - Preliminary Blood - Peripheral Venous NO GROWTH OBTAINED AFTER 24 HOURS, INCUBATION TO CONTINUE FOR 4 DAYS. 04/11/19 14:45 Blood Culture - Preliminary Blood - Peripheral Venous NO GROWTH OBTAINED AFTER 24 HOURS, INCUBATION TO CONTINUE FOR 4 DAYS. 04/11/19 14:30 Blood Culture - Preliminary Blood - Peripheral Venous NO GROWTH OBTAINED AFTER 24 HOURS, INCUBATION TO CONTINUE FOR 4 DAYS. Physical Examination Constitutional: Yes: Awake/ chronic ill appearance/ comfortable Eyes: Yes: conjunctiva clear Neck: Yes: WNL, Supple, Trachea Midline Cardiovascular: Yes: Tachycardia, Pulse Irregular, S1, S2 Respiratory: Yes: Diminished, no Rhonchi Gastrointestinal: Yes: soft Breast(s): Yes: Left (Mastectomy) Edema: No Peripheral Pulses WNL: Yes Neurological: Yes: drowsy A/P Better Abx per i/d wbc trending down repeated cultures- Pending continue present care supportive care Pt is DNR and DNI on isolation for ESBL urine will follow Problem List - Problems (1) Acute respiratory failure with hypoxia Code(s): J96.01 - ACUTE RESPIRATORY FAILURE WITH HYPOXIA (2) Atrial fibrillation Code(s): I48.91 - UNSPECIFIED ATRIAL FIBRILLATION Qualifiers: Atrial fibrillation type: persistent (3) Coronary artery disease Code(s): I25.10 - ATHSCL HEART DISEASE OF [place] CORONARY ARTERY W/O ANG PCTRS Qualifiers: Coronary Disease-Associated Artery/Lesion type: [place] artery [place] vs. transplanted heart: [place] heart Associated angina: without angina Qualified Code(s): I25.10 - Atherosclerotic heart disease of [place] coronary artery without angina pectoris (4) Demand ischemia Code(s): I24.8 - OTHER FORMS OF ACUTE ISCHEMIC HEART DISEASE (5) Pneumonia Code(s): J18.9 - PNEUMONIA, UNSPECIFIED ORGANISM Qualifiers: Pneumonia type: aspiration pneumonia (6) Sepsis Code(s): A41.9 - SEPSIS, UNSPECIFIED ORGANISM Qualifiers: Sepsis type: sepsis due to unspecified organism Qualified Code(s): A41.9 - Sepsis, unspecified organism (7) UTI (urinary tract infection) Code(s): N39.0 - URINARY TRACT INFECTION, SITE NOT SPECIFIED Qualifiers: Urinary tract infection type: site unspecified Hematuria presence: without hematuria Qualified Code(s): N39.0 - Urinary tract infection, site not specified
--- NOTE | 2019-04-13 14:15 | PN ---
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, Physician History of Present Illness: still spiking fevers - Current Medication List Current Medications: Active Medications Acetaminophen (Tylenol -) 650 mg PO Q6H PRN PRN Reason: FEVER Last Admin: 04/12/19 17:49 Dose: 650 mg Albuterol/Ipratropium (Duoneb -) 1 amp NEB RQID [facility] Last Admin: 04/13/19 11:31 Dose: 1 amp Anastrozole (Arimidex -) 1 mg PO DAILY [facility] Last Admin: 04/13/19 10:31 Dose: 1 mg Atorvastatin Calcium (Lipitor -) 10 mg PO HS [facility] Last Admin: 04/12/19 23:00 Dose: 10 mg Clonazepam (Klonopin -) 0.5 mg PO TID [facility] Last Admin: 04/13/19 13:41 Dose: 0.5 mg Divalproex Sodium (Depakote Sprinkle Caps -) 250 mg PO BID [facility] Last Admin: 04/13/19 10:32 Dose: 250 mg Donepezil HCl (Aricept -) 10 mg PO HS [facility] Last Admin: 04/12/19 23:00 Dose: 10 mg Escitalopram Oxalate (Lexapro -) 20 mg PO DAILY [facility] Last Admin: 04/13/19 10:34 Dose: 20 mg Folic Acid (Folic Acid -) 1 mg PO DAILY [facility] Last Admin: 04/13/19 10:33 Dose: 1 mg Furosemide (Lasix -) 20 mg PO DAILY [facility] Last Admin: 04/13/19 10:34 Dose: 20 mg Ceftazidime/Avibactam 2.5 gm/ (Dextrose) 250 mls @ 125 mls/hr IVPB Q8H-IV [facility] Last Admin: 04/13/19 10:31 Dose: 125 mls/hr Metoprolol Tartrate (Lopressor -) 75 mg PO BID [facility] Last Admin: 04/13/19 10:35 Dose: 75 mg Miconazole Nitrate (Miconazole Nitrate) 1 applic TP BID [facility] Last Admin: 04/13/19 11:35 Dose: 1 applic Ofloxacin (Ocuflox 0.3% Eye Drops -) 2 drop OU Q4HWA [facility] Last Admin: 04/13/19 13:41 Dose: 2 drop Pantoprazole Sodium (Protonix Iv) 40 mg IVPUSH DAILY [facility] Last Admin: 04/13/19 10:36 Dose: 40 mg Rivaroxaban (Xarelto) 20 mg PO 1800 [facility] Last Admin: 04/12/19 17:49 Dose: 20 mg - Objective Vital Signs: Vital Signs Temperature 97.8 F 04/13/19 10:00 Pulse Rate 96 H 04/13/19 10:00 Respiratory Rate 18 04/13/19 10:00 Blood Pressure 136/82 04/13/19 10:00 O2 Sat by Pulse Oximetry (%) 94 L 04/12/19 21:00 Constitutional: Yes: No Distress, Calm Cardiovascular: Yes: S1, S2 Respiratory: Yes: Regular, CTA Bilaterally Gastrointestinal: Yes: Normal Bowel Sounds, Soft Musculoskeletal: Yes: WNL Extremities: Yes: WNL Neurological: Yes: Alert, Other Psychiatric: Yes: Other Labs: CBC, BMP 04/13/19 06:10 04/13/19 06:10 INR, PTT INR 1.69 (0.83-1.09) H 04/08/19 10:55 Assessment/Plan Problem List - Problems (1) Atrial fibrillation with RVR Code(s): I48.91 - UNSPECIFIED ATRIAL FIBRILLATION (2) COPD (chronic obstructive pulmonary disease) Code(s): J44.9 - CHRONIC OBSTRUCTIVE PULMONARY DISEASE, UNSPECIFIED (3) Elevated troponin Code(s): R79.89 - OTHER SPECIFIED ABNORMAL FINDINGS OF BLOOD CHEMISTRY (4) Systemic inflammatory response syndrome (SIRS) Code(s): R65.10 - SIRS OF NON-INFECTIOUS ORIGIN W/O ACUTE ORGAN DYSFUNCTION uti fever plan continue abx monitor fevers rest as per the team
--- NOTE | 2019-04-13 14:24 | PN ---
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, ORDINARY SEAMAN - Note 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: Selected Entries 04/12/19 04/12/19 04/12/19 02:00 06:00 10:00 Breakfast Supper Temperature 99.4 F 99.1 F 99.6 F 04/12/19 04/12/19 04/12/19 11:25 14:00 18:15 Breakfast 50% Supper Temperature 98.5 F 101.5 F H 04/12/19 04/12/19 04/13/19 20:10 22:39 06:58 Breakfast Supper 25% Temperature 100.3 F H 99.4 F 04/13/19 10:00 Breakfast Supper Temperature 97.8 F Laboratory Tests 04/11/19 04/13/19 05:30 06:10 WBC 12.8 H 7.9 On nectar thick liquid, prophylactically.Fever spikes.
[2019-04-13] MEDS: RIVAROXABAN 20 MG TABLET PO SCH (19:21)
[2019-04-13] MEDS ORDERED: ACETAMINOPHEN 325 MG TABLET (FP) PO PRN (19:45)
[2019-04-13] MEDS: ATORVASTATIN CA 10 MG TABLET (FP) PO SCH (22:02)
[2019-04-13] MEDS: DONEPEZIL HCL 10 MG TABLET (FP) PO SCH (22:03)
[2019-04-14] MEDS ORDERED: PT OWN MED DRAWER 7, Y5N ONE (01:43)
[2019-04-14] MEDS: CEFTAZIDIME/AVIBACTAM 2.5 GM in DEXTROSE 5%-WATER - 250 ML IVPB SCH ×3 (02:15→18:03)
[2019-04-14] MEDS: clonazePAM 0.5 MG TABLET PO SCH ×3 (06:31→22:13)
[2019-04-14] MEDS: OFLOXACIN 0.3% OPHTHALMIC SOLUTION 5 ML BOTTLE OU SCH ×5 (06:31→22:30)
[2019-04-14] MEDS: ALBUTEROL SO4 2.5/IPRATROPIUM 0.5 INH SOL 3 ML VIAL.NEB. NEB SCH ×4 (07:15→19:50)
--- NOTE | 2019-04-14 10:27 | PN ---
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, Physician History of Present Illness: still with low grade fever wbc normalized stable - Current Medication List Current Medications: Active Medications Acetaminophen (Tylenol -) 650 mg PO Q6H PRN PRN Reason: FEVER Albuterol/Ipratropium (Duoneb -) 1 amp NEB RQID [facility] Last Admin: 04/14/19 07:15 Dose: 1 amp Anastrozole (Arimidex -) 1 mg PO DAILY [facility] Atorvastatin Calcium (Lipitor -) 10 mg PO HS [facility] Last Admin: 04/13/19 22:02 Dose: 10 mg Clonazepam (Klonopin -) 0.5 mg PO TID [facility] Last Admin: 04/14/19 06:31 Dose: 0.5 mg Divalproex Sodium (Depakote Sprinkle Caps -) 250 mg PO BID [facility] Last Admin: 04/13/19 22:08 Dose: 250 mg Donepezil HCl (Aricept -) 10 mg PO HS [facility] Last Admin: 04/13/19 22:03 Dose: 10 mg Escitalopram Oxalate (Lexapro -) 20 mg PO DAILY [facility] Folic Acid (Folic Acid -) 1 mg PO DAILY [facility] Furosemide (Lasix -) 20 mg PO DAILY [facility] Ceftazidime/Avibactam 2.5 gm/ (Dextrose) 250 mls @ 125 mls/hr IVPB Q8H-IV [facility] Last Admin: 04/14/19 02:15 Dose: 125 mls/hr Metoprolol Tartrate (Lopressor -) 75 mg PO BID [facility] Last Admin: 04/13/19 22:03 Dose: 75 mg Miconazole Nitrate (Miconazole Nitrate) 1 applic TP BID [facility] Last Admin: 04/13/19 22:59 Dose: 1 applic Ofloxacin (Ocuflox 0.3% Eye Drops -) 2 drop OU Q4HWA [facility] Last Admin: 04/14/19 06:31 Dose: 2 drop Pantoprazole Sodium (Protonix Iv) 40 mg IVPUSH DAILY [facility] Rivaroxaban (Xarelto) 20 mg PO 1800 [facility] - Objective Vital Signs: Vital Signs Temperature 98.5 F 04/14/19 08:51 Pulse Rate 94 H 04/14/19 08:51 Respiratory Rate 20 04/14/19 08:51 Blood Pressure 119/81 04/14/19 08:51 O2 Sat by Pulse Oximetry (%) 98 04/13/19 21:00 Constitutional: Yes: No Distress, Calm Cardiovascular: Yes: S1, S2 Respiratory: Yes: Regular, CTA Bilaterally Gastrointestinal: Yes: Normal Bowel Sounds, Soft Musculoskeletal: Yes: WNL Extremities: Yes: WNL Neurological: Yes: Alert, Other Psychiatric: Yes: Other Labs: CBC, BMP 04/13/19 06:10 04/13/19 06:10 INR, PTT INR 1.69 (0.83-1.09) H 04/08/19 10:55 Assessment/Plan Problem List - Problems (1) Atrial fibrillation with RVR Code(s): I48.91 - UNSPECIFIED ATRIAL FIBRILLATION (2) COPD (chronic obstructive pulmonary disease) Code(s): J44.9 - CHRONIC OBSTRUCTIVE PULMONARY DISEASE, UNSPECIFIED (3) Elevated troponin Code(s): R79.89 - OTHER SPECIFIED ABNORMAL FINDINGS OF BLOOD CHEMISTRY (4) Systemic inflammatory response syndrome (SIRS) Code(s): R65.10 - SIRS OF NON-INFECTIOUS ORIGIN W/O ACUTE ORGAN DYSFUNCTION uti fever plan continue abx monitor fevers rest as per the team
[2019-04-14] MEDS: METOPROLOL TARTRATE 25 MG TABLET (FP) PO SCH ×2 (10:48→22:13)
[2019-04-14] MEDS: PANTOPRAZOLE SODIUM 40 MG VIAL IVPUSH SCH (10:48)
[2019-04-14] MEDS: ESCITALOPRAM OXALATE 20 MG TABLET (FP) PO SCH (10:49)
[2019-04-14] MEDS: FOLIC ACID 1 MG TABLET (FP) PO SCH (10:49)
[2019-04-14] MEDS: DIVALPROEX SODIUM 125 MG SPRINKLE CAPS PO SCH ×2 (10:50→22:13)
[2019-04-14] MEDS: ANASTROZOLE 1 MG TABLET PO SCH (10:50)
[2019-04-14] MEDS: FUROSEMIDE 20 MG TABLET (FP) PO SCH (10:51)
[2019-04-14] MEDS: MICONAZOLE NITRATE 28 GM TUBE TP SCH ×2 (10:52→22:30)
--- NOTE | 2019-04-14 13:03 | PN ---
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 (short form) - Note 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: pt seen/ examined alert/ awake comfortable low grade temp daughter at bedside Vital Signs Temp 98.5 F 04/14/19 08:51 Pulse 94 H 04/14/19 08:51 Resp 20 04/14/19 08:51 BP 119/81 04/14/19 08:51 Pulse Ox 95 04/14/19 09:00 Intake & Output 04/13/19 04/14/19 04/14/19 23:59 11:59 23:59 Intake Total 250 250 Balance 250 250 Intake: IV 0 sl 0 IVPB 250 250 Other: Voiding Method Incontinent Incontinent Bowel Movement No Active Medications Acetaminophen (Tylenol -) 650 mg PO Q6H PRN PRN Reason: FEVER Albuterol/Ipratropium (Duoneb -) 1 amp NEB RQID [facility] Last Admin: 04/14/19 11:05 Dose: 1 amp Anastrozole (Arimidex -) 1 mg PO DAILY [facility] Last Admin: 04/14/19 10:50 Dose: 1 mg Atorvastatin Calcium (Lipitor -) 10 mg PO [facility] Last Admin: 04/13/19 22:02 Dose: 10 mg Clonazepam (Klonopin -) 0.5 mg PO TID [facility] Last Admin: 04/14/19 06:31 Dose: 0.5 mg Divalproex Sodium (Depakote Sprinkle Caps -) 250 mg PO BID [facility] Last Admin: 04/14/19 10:50 Dose: 250 mg Donepezil HCl (Aricept -) 10 mg PO HS [facility] Last Admin: 04/13/19 22:03 Dose: 10 mg Escitalopram Oxalate (Lexapro -) 20 mg PO DAILY [facility] Last Admin: 04/14/19 10:49 Dose: 20 mg Folic Acid (Folic Acid -) 1 mg PO DAILY [facility] Last Admin: 04/14/19 10:49 Dose: 1 mg Furosemide (Lasix -) 20 mg PO DAILY [facility] Last Admin: 04/14/19 10:51 Dose: 20 mg Ceftazidime/Avibactam 2.5 gm/ (Dextrose) 250 mls @ 125 mls/hr IVPB Q8H-IV [facility] Last Admin: 04/14/19 10:50 Dose: 125 mls/hr Metoprolol Tartrate (Lopressor -) 75 mg PO BID [facility] Last Admin: 04/14/19 10:48 Dose: 75 mg Miconazole Nitrate (Miconazole Nitrate) 1 applic TP BID [facility] Last Admin: 04/14/19 10:52 Dose: 1 applic Ofloxacin (Ocuflox 0.3% Eye Drops -) 2 drop OU Q4HWA [facility] Last Admin: 04/14/19 10:52 Dose: 2 drop Pantoprazole Sodium (Protonix Iv) 40 mg IVPUSH DAILY [facility] Last Admin: 04/14/19 10:48 Dose: 40 mg Rivaroxaban (Xarelto) 20 mg PO 1800 [facility] CBC, BMP 04/13/19 06:10 04/13/19 06:10 Microbiology 04/11/19 23:00 Blood Culture - Preliminary Blood - Peripheral Venous NO GROWTH OBTAINED AFTER 48 HOURS, INCUBATION TO CONTINUE FOR 3 DAYS. 04/11/19 23:00 Blood Culture - Preliminary Blood - Peripheral Venous NO GROWTH OBTAINED AFTER 48 HOURS, INCUBATION TO CONTINUE FOR 3 DAYS. 04/11/19 14:45 Blood Culture - Preliminary Blood - Peripheral Venous NO GROWTH OBTAINED AFTER 48 HOURS, INCUBATION TO CONTINUE FOR 3 DAYS. 04/11/19 14:30 Blood Culture - Preliminary Blood - Peripheral Venous NO GROWTH OBTAINED AFTER 48 HOURS, INCUBATION TO CONTINUE FOR 3 DAYS. 04/08/19 11:20 Blood Culture - Final Blood - Peripheral Venous NO GROWTH AFTER 5 DAYS INCUBATION 04/08/19 10:55 Blood Culture - Final Blood - Peripheral Venous NO GROWTH AFTER 5 DAYS INCUBATION Physical Examination Constitutional: Yes: Awake/ chronic ill appearance/ comfortable Eyes: Yes: conjunctiva clear Neck: Yes: WNL, Supple, Trachea Midline Cardiovascular: Yes: Tachycardia, Pulse Irregular, S1, S2 Respiratory: Yes: Diminished, no Rhonchi Gastrointestinal: Yes: soft Breast(s): Yes: Left (Mastectomy) Edema: No Peripheral Pulses WNL: Yes Neurological: Yes: Awake A/P Better Abx per i/d wbc trending down repeated cultures- Pending-- -ve so far continue present care supportive care Pt is DNR and DNI on isolation for ESBL urine will follow. Problem List - Problems (1) Acute respiratory failure with hypoxia Code(s): J96.01 - ACUTE RESPIRATORY FAILURE WITH HYPOXIA (2) Atrial fibrillation Code(s): I48.91 - UNSPECIFIED ATRIAL FIBRILLATION Qualifiers: Atrial fibrillation type: persistent (3) Coronary artery disease Code(s): I25.10 - ATHSCL HEART DISEASE OF [place] CORONARY ARTERY W/O ANG PCTRS Qualifiers: Coronary Disease-Associated Artery/Lesion type: [place] artery [place] vs. transplanted heart: [place] heart Associated angina: without angina Qualified Code(s): I25.10 - Atherosclerotic heart disease of [place] coronary artery without angina pectoris (4) Demand ischemia Code(s): I24.8 - OTHER FORMS OF ACUTE ISCHEMIC HEART DISEASE (5) Pneumonia Code(s): J18.9 - PNEUMONIA, UNSPECIFIED ORGANISM Qualifiers: Pneumonia type: aspiration pneumonia (6) Sepsis Code(s): A41.9 - SEPSIS, UNSPECIFIED ORGANISM Qualifiers: Sepsis type: sepsis due to unspecified organism Qualified Code(s): A41.9 - Sepsis, unspecified organism (7) UTI (urinary tract infection) Code(s): N39.0 - URINARY TRACT INFECTION, SITE NOT SPECIFIED Qualifiers: Urinary tract infection type: site unspecified Hematuria presence: without hematuria Qualified Code(s): N39.0 - Urinary tract infection, site not specified Problem List - Problems (1) Acute respiratory failure with hypoxia Code(s): J96.01 - ACUTE RESPIRATORY FAILURE WITH HYPOXIA (2) Atrial fibrillation Code(s): I48.91 - UNSPECIFIED ATRIAL FIBRILLATION Qualifiers: Atrial fibrillation type: persistent (3) Coronary artery disease Code(s): I25.10 - ATHSCL HEART DISEASE OF [place] CORONARY ARTERY W/O ANG PCTRS Qualifiers: Coronary Disease-Associated Artery/Lesion type: [place] artery [place] vs. transplanted heart: [place] heart Associated angina: without angina Qualified Code(s): I25.10 - Atherosclerotic heart disease of [place] coronary artery without angina pectoris (4) Demand ischemia Code(s): I24.8 - OTHER FORMS OF ACUTE ISCHEMIC HEART DISEASE (5) Pneumonia Code(s): J18.9 - PNEUMONIA, UNSPECIFIED ORGANISM Qualifiers: Pneumonia type: aspiration pneumonia (6) Sepsis Code(s): A41.9 - SEPSIS, UNSPECIFIED ORGANISM Qualifiers: Sepsis type: sepsis due to unspecified organism Qualified Code(s): A41.9 - Sepsis, unspecified organism (7) UTI (urinary tract infection) Code(s): N39.0 - URINARY TRACT INFECTION, SITE NOT SPECIFIED Qualifiers: Urinary tract infection type: site unspecified Hematuria presence: without hematuria Qualified Code(s): N39.0 - Urinary tract infection, site not specified
--- NOTE | 2019-04-14 13:30 | PN ---
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, Physician History of Present Illness: pulmonary sleeping,no distress,-congestion,+low grade temp - Current Medication List Current Medications: Active Medications Acetaminophen (Tylenol -) 650 mg PO Q6H PRN PRN Reason: FEVER Albuterol/Ipratropium (Duoneb -) 1 amp NEB RQID [facility] Last Admin: 04/14/19 11:05 Dose: 1 amp Anastrozole (Arimidex -) 1 mg PO DAILY [facility] Last Admin: 04/14/19 10:50 Dose: 1 mg Atorvastatin Calcium (Lipitor -) 10 mg PO HS [facility] Last Admin: 04/13/19 22:02 Dose: 10 mg Clonazepam (Klonopin -) 0.5 mg PO TID [facility] Last Admin: 04/14/19 06:31 Dose: 0.5 mg Divalproex Sodium (Depakote Sprinkle Caps -) 250 mg PO BID [facility] Last Admin: 04/14/19 10:50 Dose: 250 mg Donepezil HCl (Aricept -) 10 mg PO HS [facility] Last Admin: 04/13/19 22:03 Dose: 10 mg Escitalopram Oxalate (Lexapro -) 20 mg PO DAILY [facility] Last Admin: 04/14/19 10:49 Dose: 20 mg Folic Acid (Folic Acid -) 1 mg PO DAILY [facility] Last Admin: 04/14/19 10:49 Dose: 1 mg Furosemide (Lasix -) 20 mg PO DAILY [facility] Last Admin: 04/14/19 10:51 Dose: 20 mg Ceftazidime/Avibactam 2.5 gm/ (Dextrose) 250 mls @ 125 mls/hr IVPB Q8H-IV [facility] Last Admin: 04/14/19 10:50 Dose: 125 mls/hr Metoprolol Tartrate (Lopressor -) 75 mg PO BID [facility] Last Admin: 04/14/19 10:48 Dose: 75 mg Miconazole Nitrate (Miconazole Nitrate) 1 applic TP BID [facility] Last Admin: 04/14/19 10:52 Dose: 1 applic Ofloxacin (Ocuflox 0.3% Eye Drops -) 2 drop OU Q4HWA [facility] Last Admin: 04/14/19 10:52 Dose: 2 drop Pantoprazole Sodium (Protonix Iv) 40 mg IVPUSH DAILY [facility] Last Admin: 04/14/19 10:48 Dose: 40 mg Rivaroxaban (Xarelto) 20 mg PO 1800 [facility] - Objective Vital Signs: Vital Signs Temperature 98.5 F 04/14/19 08:51 Pulse Rate 94 H 04/14/19 08:51 Respiratory Rate 20 04/14/19 08:51 Blood Pressure 119/81 04/14/19 08:51 O2 Sat by Pulse Oximetry (%) 95 04/14/19 09:00 Constitutional: Yes: Well Nourished, Other (sleeping) Eyes: Yes: WNL HENT: Yes: WNL Neck: Yes: WNL Cardiovascular: Yes: Pulse Irregular, S1, S2 Respiratory: Yes: Diminished Gastrointestinal: Yes: Normal Bowel Sounds, Soft Extremities: Yes: WNL Edema: No Labs: CBC, BMP 04/13/19 06:10 Assessment/Plan Problem List - Problems (1) Anxiety and depression Code(s): F41.9 - ANXIETY DISORDER, UNSPECIFIED; F32.9 - MAJOR DEPRESSIVE DISORDER, SINGLE EPISODE, UNSPECIFIED (2) Asthma Code(s): J45.909 - UNSPECIFIED ASTHMA, UNCOMPLICATED (3) COPD (chronic obstructive pulmonary disease) Code(s): J44.9 - CHRONIC OBSTRUCTIVE PULMONARY DISEASE, UNSPECIFIED (4) Elevated troponin Code(s): R79.89 - OTHER SPECIFIED ABNORMAL FINDINGS OF BLOOD CHEMISTRY (5) GERD (gastroesophageal reflux disease) Code(s): K21.9 - GASTRO-ESOPHAGEAL REFLUX DISEASE WITHOUT ESOPHAGITIS (6) History of dysphagia Code(s): Z87.19 - PERSONAL HISTORY OF OTHER DISEASES OF THE DIGESTIVE SYSTEM (7) Acute respiratory failure with hypoxia Code(s): J96.01 - ACUTE RESPIRATORY FAILURE WITH HYPOXIA (8) Atrial fibrillation Code(s): I48.91 - UNSPECIFIED ATRIAL FIBRILLATION Qualifiers: Atrial fibrillation type: persistent (9) Coronary artery disease Code(s): I25.10 - ATHSCL HEART DISEASE OF [place] CORONARY ARTERY W/O ANG PCTRS Qualifiers: Coronary Disease-Associated Artery/Lesion type: [place] artery [place] vs. transplanted heart: [place] heart Associated angina: without angina Qualified Code(s): I25.10 - Atherosclerotic heart disease of [place] coronary artery without angina pectoris (10) Dementia Code(s): F03.90 - UNSPECIFIED DEMENTIA WITHOUT BEHAVIORAL DISTURBANCE Qualifiers: Dementia type: unspecified type Dementia behavioral disturbance: without behavioral disturbance Qualified Code(s): F03.90 - Unspecified dementia without behavioral disturbance (11) Diastolic dysfunction Code(s): I51.9 - HEART DISEASE, UNSPECIFIED (12) Hyperlipidemia Code(s): E78.5 - HYPERLIPIDEMIA, UNSPECIFIED Qualifiers: Hyperlipidemia type: pure hypercholesterolemia Qualified Code(s): E78.00 - Pure hypercholesterolemia, unspecified; E78.0 - Pure hypercholesterolemia (13) Hypoxia Code(s): R09.02 - HYPOXEMIA (14) Pneumonia Code(s): J18.9 - PNEUMONIA, UNSPECIFIED ORGANISM Qualifiers: Pneumonia type: aspiration pneumonia Assessment/Plan ABX per ID NIPPV support as needed O2 to maintain O2 sat 90% Aspiration precautions BD TX Xarelto F/U Chest x-ray am DR JASSO
[2019-04-14] MEDS: RIVAROXABAN 20 MG TABLET PO SCH (18:04)
[2019-04-14] MEDS: DONEPEZIL HCL 10 MG TABLET (FP) PO SCH (22:13)
[2019-04-14] MEDS: ATORVASTATIN CA 10 MG TABLET (FP) PO SCH (22:14)
[2019-04-15] MEDS: CEFTAZIDIME/AVIBACTAM 2.5 GM in DEXTROSE 5%-WATER - 250 ML IVPB SCH ×3 (02:30→17:22)
[2019-04-15] MEDS: OFLOXACIN 0.3% OPHTHALMIC SOLUTION 5 ML BOTTLE OU SCH ×5 (05:33→21:17)
[2019-04-15] MEDS: clonazePAM 0.5 MG TABLET PO SCH ×3 (05:33→21:17)
[2019-04-15] MEDS: ALBUTEROL SO4 2.5/IPRATROPIUM 0.5 INH SOL 3 ML VIAL.NEB. NEB SCH ×4 (07:25→19:50)
[2019-04-15] MEDS ORDERED: PT OWN MED DRAWER 7, Y5N ONE ×2 (09:51→18:08)
[2019-04-15] MEDS: FUROSEMIDE 20 MG TABLET (FP) PO SCH (10:32)
[2019-04-15] MEDS: FOLIC ACID 1 MG TABLET (FP) PO SCH (10:32)
[2019-04-15] MEDS: METOPROLOL TARTRATE 25 MG TABLET (FP) PO SCH ×2 (10:32→21:17)
[2019-04-15] MEDS: MICONAZOLE NITRATE 28 GM TUBE TP SCH ×2 (10:32→21:17)
[2019-04-15] MEDS: DIVALPROEX SODIUM 125 MG SPRINKLE CAPS PO SCH ×2 (10:32→21:17)
[2019-04-15] MEDS: ESCITALOPRAM OXALATE 20 MG TABLET (FP) PO SCH (10:32)
[2019-04-15] MEDS: ANASTROZOLE 1 MG TABLET PO SCH (10:32)
--- NOTE | 2019-04-15 10:32 | PN ---
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, Physician History of Present Illness: stable afebrile for 24 hrs comfortable - Current Medication List Current Medications: Active Medications Acetaminophen (Tylenol -) 650 mg PO Q6H PRN PRN Reason: FEVER Albuterol/Ipratropium (Duoneb -) 1 amp NEB RQID [facility] Last Admin: 04/15/19 07:25 Dose: 1 amp Anastrozole (Arimidex -) 1 mg PO DAILY [facility] Last Admin: 04/14/19 10:50 Dose: 1 mg Atorvastatin Calcium (Lipitor -) 10 mg PO HS [facility] Last Admin: 04/14/19 22:14 Dose: 10 mg Clonazepam (Klonopin -) 0.5 mg PO TID [facility] Last Admin: 04/15/19 05:33 Dose: 0.5 mg Divalproex Sodium (Depakote Sprinkle Caps -) 250 mg PO BID [facility] Last Admin: 04/14/19 22:13 Dose: 250 mg Donepezil HCl (Aricept -) 10 mg PO HS [facility] Last Admin: 04/14/19 22:13 Dose: 10 mg Escitalopram Oxalate (Lexapro -) 20 mg PO DAILY [facility] Last Admin: 04/14/19 10:49 Dose: 20 mg Folic Acid (Folic Acid -) 1 mg PO DAILY [facility] Last Admin: 04/14/19 10:49 Dose: 1 mg Furosemide (Lasix -) 20 mg PO DAILY [facility] Last Admin: 04/14/19 10:51 Dose: 20 mg Ceftazidime/Avibactam 2.5 gm/ (Dextrose) 250 mls @ 125 mls/hr IVPB Q8H-IV [facility] Last Admin: 04/15/19 02:30 Dose: 125 mls/hr Metoprolol Tartrate (Lopressor -) 75 mg PO BID [facility] Last Admin: 04/14/19 22:13 Dose: 75 mg Miconazole Nitrate (Miconazole Nitrate) 1 applic TP BID [facility] Last Admin: 04/14/19 22:30 Dose: 1 applic Ofloxacin (Ocuflox 0.3% Eye Drops -) 2 drop OU Q4HWA [facility] Last Admin: 04/15/19 05:33 Dose: 2 drop Pantoprazole Sodium (Protonix Iv) 40 mg IVPUSH DAILY [facility] Last Admin: 04/14/19 10:48 Dose: 40 mg Rivaroxaban (Xarelto) 20 mg PO 1800 [facility] Last Admin: 04/14/19 18:04 Dose: 20 mg - Objective Vital Signs: Vital Signs Temperature 99.7 F H 04/15/19 06:00 Pulse Rate 106 H 04/15/19 06:00 Respiratory Rate 20 04/15/19 06:00 Blood Pressure 145/87 04/15/19 06:00 O2 Sat by Pulse Oximetry (%) 96 04/14/19 21:00 Constitutional: Yes: No Distress, Calm Cardiovascular: Yes: S1, S2 Respiratory: Yes: Regular, CTA Bilaterally Gastrointestinal: Yes: Normal Bowel Sounds, Soft Musculoskeletal: Yes: WNL Extremities: Yes: WNL Neurological: Yes: Alert, Other Labs: CBC, BMP 04/13/19 06:10 04/13/19 06:10 INR, PTT INR 1.69 (0.83-1.09) H 04/08/19 10:55 Assessment/Plan Problem List - Problems (1) Atrial fibrillation with RVR Code(s): I48.91 - UNSPECIFIED ATRIAL FIBRILLATION (2) COPD (chronic obstructive pulmonary disease) Code(s): J44.9 - CHRONIC OBSTRUCTIVE PULMONARY DISEASE, UNSPECIFIED (3) Elevated troponin Code(s): R79.89 - OTHER SPECIFIED ABNORMAL FINDINGS OF BLOOD CHEMISTRY (4) Systemic inflammatory response syndrome (SIRS) Code(s): R65.10 - SIRS OF NON-INFECTIOUS ORIGIN W/O ACUTE ORGAN DYSFUNCTION uti fever plan continue abx monitor fevers rest as per the team improving
[2019-04-15] MEDS: PANTOPRAZOLE SODIUM 40 MG VIAL IVPUSH SCH (10:33)
--- NOTE | 2019-04-15 13:48 | PN ---
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 (short form) - Note 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: pt seen/ examined awake/ comfortable low grade temp overall looks better wbc normalized Vital Signs Temp 97.6 F 04/15/19 10:00 Pulse 101 H 04/15/19 10:00 Resp 20 04/15/19 10:00 BP 107/64 04/15/19 10:00 Pulse Ox 95 04/15/19 09:00 Intake & Output 04/14/19 04/15/19 04/15/19 23:59 11:59 23:59 Intake Total 950 150 Balance 950 150 Intake: IVPB 500 Oral 450 150 Other: Voiding Method Incontinent Incontinent # Unmeasured Voids Void 1 Bowel Movement Yes No # Bowel Movements 1 Active Medications Acetaminophen (Tylenol -) 650 mg PO Q6H PRN PRN Reason: FEVER Albuterol/Ipratropium (Duoneb -) 1 amp NEB RQID [facility] Last Admin: 04/15/19 11:29 Dose: 1 amp Anastrozole (Arimidex -) 1 mg PO DAILY [facility] Last Admin: 04/15/19 10:32 Dose: 1 mg Atorvastatin Calcium (Lipitor -) 10 mg PO [facility] Last Admin: 04/14/19 22:14 Dose: 10 mg Clonazepam (Klonopin -) 0.5 mg PO TID [facility] Last Admin: 04/15/19 05:33 Dose: 0.5 mg Divalproex Sodium (Depakote Sprinkle Caps -) 250 mg PO BID [facility] Last Admin: 04/15/19 10:32 Dose: 250 mg Donepezil HCl (Aricept -) 10 mg PO [facility] Last Admin: 04/14/19 22:13 Dose: 10 mg Escitalopram Oxalate (Lexapro -) 20 mg PO DAILY [facility] Last Admin: 04/15/19 10:32 Dose: 20 mg Folic Acid (Folic Acid -) 1 mg PO DAILY [facility] Last Admin: 04/15/19 10:32 Dose: 1 mg Furosemide (Lasix -) 20 mg PO DAILY [facility] Last Admin: 04/15/19 10:32 Dose: 20 mg Ceftazidime/Avibactam 2.5 gm/ (Dextrose) 250 mls @ 125 mls/hr IVPB Q8H-IV [facility] Last Admin: 04/15/19 10:32 Dose: 125 mls/hr Metoprolol Tartrate (Lopressor -) 75 mg PO BID [facility] Last Admin: 04/15/19 10:32 Dose: 75 mg Miconazole Nitrate (Miconazole Nitrate) 1 applic TP BID [facility] Last Admin: 04/15/19 10:32 Dose: 1 applic Ofloxacin (Ocuflox 0.3% Eye Drops -) 2 drop OU Q4HWA [facility] Last Admin: 04/15/19 10:33 Dose: 2 drop Pantoprazole Sodium (Protonix Iv) 40 mg IVPUSH DAILY [facility] Last Admin: 04/15/19 10:33 Dose: 40 mg Rivaroxaban (Xarelto) 20 mg PO 1800 [facility] Last Admin: 04/14/19 18:04 Dose: 20 mg CBC, BMP 04/13/19 06:10 04/13/19 06:10 Microbiology 04/11/19 23:00 Blood Culture - Preliminary Blood - Peripheral Venous NO GROWTH OBTAINED AFTER 72 HOURS, INCUBATION TO CONTINUE FOR 2 DAYS. 04/11/19 23:00 Blood Culture - Preliminary Blood - Peripheral Venous NO GROWTH OBTAINED AFTER 72 HOURS, INCUBATION TO CONTINUE FOR 2 DAYS. 04/11/19 14:45 Blood Culture - Preliminary Blood - Peripheral Venous NO GROWTH OBTAINED AFTER 72 HOURS, INCUBATION TO CONTINUE FOR 2 DAYS. 04/11/19 14:30 Blood Culture - Preliminary Blood - Peripheral Venous NO GROWTH OBTAINED AFTER 72 HOURS, INCUBATION TO CONTINUE FOR 2 DAYS. Physical Examination Constitutional: Yes: Awake/ chronic ill appearance/ comfortable Eyes: Yes: conjunctiva clear Neck: Yes: WNL, Supple, Trachea Midline Cardiovascular: Yes: Tachycardia, Pulse Irregular, S1, S2 Respiratory: Yes: Diminished, no Rhonchi Gastrointestinal: Yes: soft Breast(s): Yes: Left (Mastectomy) Edema: No Peripheral Pulses WNL: Yes Neurological: Yes: Awake A/P Better Abx per i/d wbc trending down repeated cultures- Pending-- -ve so far continue present care supportive care Pt is DNR and DNI on isolation for ESBL urine will follow. Problem List - Problems (1) Acute respiratory failure with hypoxia Code(s): J96.01 - ACUTE RESPIRATORY FAILURE WITH HYPOXIA (2) Atrial fibrillation Code(s): I48.91 - UNSPECIFIED ATRIAL FIBRILLATION Qualifiers: Atrial fibrillation type: persistent (3) Coronary artery disease Code(s): I25.10 - ATHSCL HEART DISEASE OF [place] CORONARY ARTERY W/O ANG PCTRS Qualifiers: Coronary Disease-Associated Artery/Lesion type: [place] artery [place] vs. transplanted heart: [place] heart Associated angina: without angina Qualified Code(s): I25.10 - Atherosclerotic heart disease of [place] coronary artery without angina pectoris (4) Demand ischemia Code(s): I24.8 - OTHER FORMS OF ACUTE ISCHEMIC HEART DISEASE (5) Pneumonia Code(s): J18.9 - PNEUMONIA, UNSPECIFIED ORGANISM Qualifiers: Pneumonia type: aspiration pneumonia (6) Sepsis Code(s): A41.9 - SEPSIS, UNSPECIFIED ORGANISM Qualifiers: Sepsis type: sepsis due to unspecified organism Qualified Code(s): A41.9 - Sepsis, unspecified organism (7) UTI (urinary tract infection) Code(s): N39.0 - URINARY TRACT INFECTION, SITE NOT SPECIFIED Qualifiers: Urinary tract infection type: site unspecified Hematuria presence: without hematuria Qualified Code(s): N39.0 - Urinary tract infection, site not specified
--- NOTE | 2019-04-15 14:42 | PN ---
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, Physician History of Present Illness: pulmonary awake,comfortable,-sob - Current Medication List Current Medications: Active Medications Acetaminophen (Tylenol -) 650 mg PO Q6H PRN PRN Reason: FEVER Albuterol/Ipratropium (Duoneb -) 1 amp NEB RQID [facility] Last Admin: 04/15/19 11:29 Dose: 1 amp Anastrozole (Arimidex -) 1 mg PO DAILY [facility] Last Admin: 04/15/19 10:32 Dose: 1 mg Atorvastatin Calcium (Lipitor -) 10 mg PO HS [facility] Last Admin: 04/14/19 22:14 Dose: 10 mg Clonazepam (Klonopin -) 0.5 mg PO TID [facility] Last Admin: 04/15/19 05:33 Dose: 0.5 mg Divalproex Sodium (Depakote Sprinkle Caps -) 250 mg PO BID [facility] Last Admin: 04/15/19 10:32 Dose: 250 mg Donepezil HCl (Aricept -) 10 mg PO HS [facility] Last Admin: 04/14/19 22:13 Dose: 10 mg Escitalopram Oxalate (Lexapro -) 20 mg PO DAILY [facility] Last Admin: 04/15/19 10:32 Dose: 20 mg Folic Acid (Folic Acid -) 1 mg PO DAILY [facility] Last Admin: 04/15/19 10:32 Dose: 1 mg Furosemide (Lasix -) 20 mg PO DAILY [facility] Last Admin: 04/15/19 10:32 Dose: 20 mg Ceftazidime/Avibactam 2.5 gm/ (Dextrose) 250 mls @ 125 mls/hr IVPB Q8H-IV [facility] Last Admin: 04/15/19 10:32 Dose: 125 mls/hr Metoprolol Tartrate (Lopressor -) 75 mg PO BID [facility] Last Admin: 04/15/19 10:32 Dose: 75 mg Miconazole Nitrate (Miconazole Nitrate) 1 applic TP BID [facility] Last Admin: 04/15/19 10:32 Dose: 1 applic Ofloxacin (Ocuflox 0.3% Eye Drops -) 2 drop OU Q4HWA [facility] Last Admin: 04/15/19 10:33 Dose: 2 drop Pantoprazole Sodium (Protonix Iv) 40 mg IVPUSH DAILY [facility] Last Admin: 04/15/19 10:33 Dose: 40 mg Rivaroxaban (Xarelto) 20 mg PO 1800 [facility] Last Admin: 10/19/19 18:04 Dose: 20 mg - Objective Vital Signs: Vital Signs Temperature 98.8 F 04/15/19 14:35 Pulse Rate 105 H 04/15/19 14:35 Respiratory Rate 20 04/15/19 14:35 Blood Pressure 109/57 L 04/15/19 14:35 O2 Sat by Pulse Oximetry (%) 95 04/15/19 09:00 Constitutional: Yes: Well Nourished, Calm Eyes: Yes: WNL HENT: Yes: WNL Neck: Yes: WNL Cardiovascular: Yes: Pulse Irregular, S1, S2 Respiratory: Yes: Diminished Gastrointestinal: Yes: Normal Bowel Sounds, Soft Extremities: Yes: WNL Edema: No Labs: CBC, BMP 04/13/19 06:10 04/13/19 06:10 INR, PTT INR 1.69 (0.83-1.09) H 04/08/19 10:55 Assessment/Plan Problem List - Problems (1) Anxiety and depression Code(s): F41.9 - ANXIETY DISORDER, UNSPECIFIED; F32.9 - MAJOR DEPRESSIVE DISORDER, SINGLE EPISODE, UNSPECIFIED (2) Asthma Code(s): J45.909 - UNSPECIFIED ASTHMA, UNCOMPLICATED (3) COPD (chronic obstructive pulmonary disease) Code(s): J44.9 - CHRONIC OBSTRUCTIVE PULMONARY DISEASE, UNSPECIFIED (4) Elevated troponin Code(s): R79.89 - OTHER SPECIFIED ABNORMAL FINDINGS OF BLOOD CHEMISTRY (5) GERD (gastroesophageal reflux disease) Code(s): K21.9 - GASTRO-ESOPHAGEAL REFLUX DISEASE WITHOUT ESOPHAGITIS (6) History of dysphagia Code(s): Z87.19 - PERSONAL HISTORY OF OTHER DISEASES OF THE DIGESTIVE SYSTEM (7) Acute respiratory failure with hypoxia Code(s): J96.01 - ACUTE RESPIRATORY FAILURE WITH HYPOXIA (8) Atrial fibrillation Code(s): I48.91 - UNSPECIFIED ATRIAL FIBRILLATION Qualifiers: Atrial fibrillation type: persistent (9) Coronary artery disease Code(s): I25.10 - ATHSCL HEART DISEASE OF [place] CORONARY ARTERY W/O ANG PCTRS Qualifiers: Coronary Disease-Associated Artery/Lesion type: [place] artery [place] vs. transplanted heart: [place] heart Associated angina: without angina Qualified Code(s): I25.10 - Atherosclerotic heart disease of [place] coronary artery without angina pectoris (10) Dementia Code(s): F03.90 - UNSPECIFIED DEMENTIA WITHOUT BEHAVIORAL DISTURBANCE Qualifiers: Dementia type: unspecified type Dementia behavioral disturbance: without behavioral disturbance Qualified Code(s): F03.90 - Unspecified dementia without behavioral disturbance (11) Diastolic dysfunction Code(s): I51.9 - HEART DISEASE, UNSPECIFIED (12) Hyperlipidemia Code(s): E78.5 - HYPERLIPIDEMIA, UNSPECIFIED Qualifiers: Hyperlipidemia type: pure hypercholesterolemia Qualified Code(s): E78.00 - Pure hypercholesterolemia, unspecified; E78.0 - Pure hypercholesterolemia (13) Hypoxia Code(s): R09.02 - HYPOXEMIA (14) Pneumonia Code(s): J18.9 - PNEUMONIA, UNSPECIFIED ORGANISM Qualifiers: Pneumonia type: aspiration pneumonia Assessment/Plan ABX per ID O2 to maintain O2 sat 90% Aspiration precautions BD TX Xarelto F/U Chest x-ray DR JASSO
[2019-04-15] MEDS: RIVAROXABAN 20 MG TABLET PO SCH (17:22)
[2019-04-15] MEDS: ATORVASTATIN CA 10 MG TABLET (FP) PO SCH (21:17)
[2019-04-15] MEDS: DONEPEZIL HCL 10 MG TABLET (FP) PO SCH (21:17)
[2019-04-16] MEDS: CEFTAZIDIME/AVIBACTAM 2.5 GM in DEXTROSE 5%-WATER - 250 ML IVPB SCH ×3 (02:50→18:42)
[2019-04-16] MEDS: clonazePAM 0.5 MG TABLET PO SCH ×3 (05:10→22:10)
[2019-04-16] MEDS: OFLOXACIN 0.3% OPHTHALMIC SOLUTION 5 ML BOTTLE OU SCH ×5 (05:11→22:11)
[2019-04-16] MEDS: ALBUTEROL SO4 2.5/IPRATROPIUM 0.5 INH SOL 3 ML VIAL.NEB. NEB SCH ×4 (07:35→20:19)
--- NOTE | 2019-04-16 09:26 | PN ---
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, Physician History of Present Illness: stable no new issues - Current Medication List Current Medications: Active Medications Acetaminophen (Tylenol -) 650 mg PO Q6H PRN PRN Reason: FEVER Albuterol/Ipratropium (Duoneb -) 1 amp NEB RQID [facility] Last Admin: 04/16/19 07:35 Dose: 1 amp Anastrozole (Arimidex -) 1 mg PO DAILY [facility] Last Admin: 04/15/19 10:32 Dose: 1 mg Atorvastatin Calcium (Lipitor -) 10 mg PO HS [facility] Last Admin: 04/15/19 21:17 Dose: 10 mg Clonazepam (Klonopin -) 0.5 mg PO TID [facility] Last Admin: 04/16/19 05:10 Dose: 0.5 mg Divalproex Sodium (Depakote Sprinkle Caps -) 250 mg PO BID [facility] Last Admin: 04/15/19 21:17 Dose: 250 mg Donepezil HCl (Aricept -) 10 mg PO HS [facility] Last Admin: 04/15/19 21:17 Dose: 10 mg Escitalopram Oxalate (Lexapro -) 20 mg PO DAILY [facility] Last Admin: 04/15/19 10:32 Dose: 20 mg Folic Acid (Folic Acid -) 1 mg PO DAILY [facility] Last Admin: 04/15/19 10:32 Dose: 1 mg Furosemide (Lasix -) 20 mg PO DAILY [facility] Last Admin: 04/15/19 10:32 Dose: 20 mg Ceftazidime/Avibactam 2.5 gm/ (Dextrose) 250 mls @ 125 mls/hr IVPB Q8H-IV [facility] Last Admin: 04/16/19 02:50 Dose: 125 mls/hr Metoprolol Tartrate (Lopressor -) 75 mg PO BID [facility] Last Admin: 04/15/19 21:17 Dose: 75 mg Miconazole Nitrate (Miconazole Nitrate) 1 applic TP BID [facility] Last Admin: 04/15/19 21:17 Dose: 1 applic Ofloxacin (Ocuflox 0.3% Eye Drops -) 2 drop OU Q4HWA [facility] Last Admin: 04/16/19 05:11 Dose: 2 drop Pantoprazole Sodium (Protonix Iv) 40 mg IVPUSH DAILY [facility] Last Admin: 04/15/19 10:33 Dose: 40 mg Rivaroxaban (Xarelto) 20 mg PO 1800 [facility] Last Admin: 04/15/19 17:22 Dose: 20 mg - Objective Vital Signs: Vital Signs Temperature 98.6 F 04/15/19 19:38 Pulse Rate 117 H 04/15/19 19:38 Respiratory Rate 20 04/15/19 19:38 Blood Pressure 131/88 04/15/19 19:38 O2 Sat by Pulse Oximetry (%) 95 04/15/19 21:00 Constitutional: Yes: No Distress, Calm Cardiovascular: Yes: S1, S2 Respiratory: Yes: Regular, CTA Bilaterally Gastrointestinal: Yes: Normal Bowel Sounds, Soft Musculoskeletal: Yes: Other Extremities: Yes: Other Neurological: Yes: Alert, Other Psychiatric: Yes: Other Labs: CBC, BMP 04/13/19 06:10 04/13/19 06:10 INR, PTT INR 1.69 (0.83-1.09) H 04/08/19 10:55 Assessment/Plan Problem List - Problems (1) Atrial fibrillation with RVR Code(s): I48.91 - UNSPECIFIED ATRIAL FIBRILLATION (2) COPD (chronic obstructive pulmonary disease) Code(s): J44.9 - CHRONIC OBSTRUCTIVE PULMONARY DISEASE, UNSPECIFIED (3) Elevated troponin Code(s): R79.89 - OTHER SPECIFIED ABNORMAL FINDINGS OF BLOOD CHEMISTRY (4) Systemic inflammatory response syndrome (SIRS) Code(s): R65.10 - SIRS OF NON-INFECTIOUS ORIGIN W/O ACUTE ORGAN DYSFUNCTION uti fever plan continue abx will need abx for another 7 days
--- NOTE | 2019-04-16 10:48 | PN ---
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 (short form) - Note 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: PULMONARY Denies shortness of breath, cough or wheezing. No fevers recorded. Vital Signs Period Temp Pulse Resp BP Sys/Crawford Pulse Ox Last 24 Hr 98.6 F-98.8 F 105-117 20-20 109-131/57-88 95 Gen: NAD at rest Heart: RRR Lung: decreased breath sounds at the bases Abd: soft, nontender Ext: no edema CBC, BMP 04/13/19 06:10 04/13/19 06:10 Active Medications Acetaminophen (Tylenol -) 650 mg PO Q6H PRN PRN Reason: FEVER Albuterol/Ipratropium (Duoneb -) 1 amp NEB RQID [facility] Last Admin: 04/16/19 07:35 Dose: 1 amp Anastrozole (Arimidex -) 1 mg PO DAILY [facility] Last Admin: 04/15/19 10:32 Dose: 1 mg Atorvastatin Calcium (Lipitor -) 10 mg PO HS [facility] Last Admin: 04/15/19 21:17 Dose: 10 mg Clonazepam (Klonopin -) 0.5 mg PO TID [facility] Last Admin: 04/16/19 05:10 Dose: 0.5 mg Divalproex Sodium (Depakote Sprinkle Caps -) 250 mg PO BID [facility] Last Admin: 04/15/19 21:17 Dose: 250 mg Donepezil HCl (Aricept -) 10 mg PO HS [facility] Last Admin: 04/15/19 21:17 Dose: 10 mg Escitalopram Oxalate (Lexapro -) 20 mg PO DAILY [facility] Last Admin: 04/15/19 10:32 Dose: 20 mg Folic Acid (Folic Acid -) 1 mg PO DAILY [facility] Last Admin: 04/15/19 10:32 Dose: 1 mg Furosemide (Lasix -) 20 mg PO DAILY [facility] Last Admin: 04/15/19 10:32 Dose: 20 mg Ceftazidime/Avibactam 2.5 gm/ (Dextrose) 250 mls @ 125 mls/hr IVPB Q8H-IV [facility] Last Admin: 04/16/19 02:50 Dose: 125 mls/hr Metoprolol Tartrate (Lopressor -) 75 mg PO BID [facility] Last Admin: 04/15/19 21:17 Dose: 75 mg Miconazole Nitrate (Miconazole Nitrate) 1 applic TP BID [facility] Last Admin: 04/15/19 21:17 Dose: 1 applic Ofloxacin (Ocuflox 0.3% Eye Drops -) 2 drop OU Q4HWA [facility] Last Admin: 04/16/19 05:11 Dose: 2 drop Pantoprazole Sodium (Protonix Iv) 40 mg IVPUSH DAILY [facility] Last Admin: 04/15/19 10:33 Dose: 40 mg Rivaroxaban (Xarelto) 20 mg PO 1800 [facility] Last Admin: 04/15/19 17:22 Dose: 20 mg A/P UTI Pneumonia Sepsis COPD Atrial Fibrillation CAD +Troponins likely Demand Ischemia LV Diastolic Dysfunction Dementia HTN Hyperlipidemia GERD h/o Breast Ca - antibiotics per ID - inhaled bronchodilators - rate control - continue anticoagulation - aspiration precautions - DVT prophylaxis
[2019-04-16] MEDS: DIVALPROEX SODIUM 125 MG SPRINKLE CAPS PO SCH ×2 (11:08→22:13)
[2019-04-16] MEDS: PANTOPRAZOLE SODIUM 40 MG VIAL IVPUSH SCH (11:08)
[2019-04-16] MEDS: METOPROLOL TARTRATE 25 MG TABLET (FP) PO SCH ×2 (11:08→22:10)
[2019-04-16] MEDS: ESCITALOPRAM OXALATE 20 MG TABLET (FP) PO SCH (11:09)
[2019-04-16] MEDS: MICONAZOLE NITRATE 28 GM TUBE TP SCH ×2 (11:09→22:11)
[2019-04-16] MEDS: FUROSEMIDE 20 MG TABLET (FP) PO SCH (11:09)
[2019-04-16] MEDS: FOLIC ACID 1 MG TABLET (FP) PO SCH (11:09)
[2019-04-16] MEDS: ANASTROZOLE 1 MG TABLET PO SCH (11:10)
--- NOTE | 2019-04-16 13:15 | PN ---
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 (short form) - Note 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: Pt seen/ examined Awake/ comfortable Vital Signs Temp 98.3 F 04/16/19 10:58 Pulse 114 H 04/16/19 10:58 Resp 20 04/16/19 10:58 BP 134/79 04/16/19 10:58 Pulse Ox 95 04/15/19 21:00 Intake & Output 04/15/19 04/16/19 04/16/19 23:59 11:59 23:59 Intake Total 550 100 Balance 550 100 Intake: IVPB 250 Oral 300 100 Other: Voiding Method Incontinent Diaper # Unmeasured Voids Void 2 Bowel Movement Yes Active Medications Acetaminophen (Tylenol -) 650 mg PO Q6H PRN PRN Reason: FEVER Albuterol/Ipratropium (Duoneb -) 1 amp NEB RQID [facility] Last Admin: 04/16/19 11:20 Dose: Not Given Anastrozole (Arimidex -) 1 mg PO DAILY [facility] Last Admin: 04/16/19 11:10 Dose: 1 mg Atorvastatin Calcium (Lipitor -) 10 mg PO [facility] Last Admin: 04/15/19 21:17 Dose: 10 mg Clonazepam (Klonopin -) 0.5 mg PO TID [facility] Last Admin: 04/16/19 05:10 Dose: 0.5 mg Divalproex Sodium (Depakote Sprinkle Caps -) 250 mg PO BID [facility] Last Admin: 04/16/19 11:08 Dose: 250 mg Donepezil HCl (Aricept -) 10 mg PO [facility] Last Admin: 04/15/19 21:17 Dose: 10 mg Escitalopram Oxalate (Lexapro -) 20 mg PO DAILY [facility] Last Admin: 04/16/19 11:09 Dose: 20 mg Folic Acid (Folic Acid -) 1 mg PO DAILY [facility] Last Admin: 04/16/19 11:09 Dose: 1 mg Furosemide (Lasix -) 20 mg PO DAILY [facility] Last Admin: 04/16/19 11:09 Dose: 20 mg Ceftazidime/Avibactam 2.5 gm/ (Dextrose) 250 mls @ 125 mls/hr IVPB Q8H-IV [facility] Last Admin: 04/16/19 11:03 Dose: 125 mls/hr Metoprolol Tartrate (Lopressor -) 75 mg PO BID [facility] Last Admin: 04/16/19 11:08 Dose: 75 mg Miconazole Nitrate (Miconazole Nitrate) 1 applic TP BID [facility] Last Admin: 04/16/19 11:09 Dose: 1 applic Ofloxacin (Ocuflox 0.3% Eye Drops -) 2 drop OU Q4HWA [facility] Last Admin: 04/16/19 11:09 Dose: 2 drop Pantoprazole Sodium (Protonix -) 40 mg PO DAILY [facility] Rivaroxaban (Xarelto) 20 mg PO 1800 [facility] Last Admin: 04/15/19 17:22 Dose: 20 mg CBC, BMP 04/13/19 06:10 04/13/19 06:10 Microbiology 04/11/19 23:00 Blood Culture - Preliminary Blood - Peripheral Venous NO GROWTH OBTAINED AFTER 96 HOURS, INCUBATION TO CONTINUE FOR 1 DAYS. 04/11/19 23:00 Blood Culture - Preliminary Blood - Peripheral Venous NO GROWTH OBTAINED AFTER 96 HOURS, INCUBATION TO CONTINUE FOR 1 DAYS. 04/11/19 14:30 Blood Culture - Preliminary Blood - Peripheral Venous NO GROWTH OBTAINED AFTER 96 HOURS, INCUBATION TO CONTINUE FOR 1 DAYS. 04/11/19 14:45 Blood Culture - Preliminary Blood - Peripheral Venous NO GROWTH OBTAINED AFTER 96 HOURS, INCUBATION TO CONTINUE FOR 1 DAYS. Physical Examination Constitutional: Yes: Awake/ comfortable Eyes: Yes: conjunctiva clear Neck: Yes: WNL, Supple, Trachea Midline Cardiovascular: Yes: Tachycardia, Pulse Irregular, S1, S2 Respiratory: Yes: Diminished, no Rhonchi Gastrointestinal: Yes: soft Breast(s): Yes: Left (Mastectomy) Edema: No Peripheral Pulses WNL: Yes Neurological: Yes: Awake A/P Better Abx per i/d wbc trending down repeated cultures- Pending-- -ve so far continue present care supportive care Pt is DNR and DNI on isolation for ESBL urine i/d recommends 7 more days of abx d/w wrapper caser also today d/c planning medically stable for d/c pts family requesting change of long term when available- stable for d/c will follow Problem List - Problems (1) Acute respiratory failure with hypoxia Code(s): J96.01 - ACUTE RESPIRATORY FAILURE WITH HYPOXIA (2) Atrial fibrillation Code(s): I48.91 - UNSPECIFIED ATRIAL FIBRILLATION Qualifiers: Atrial fibrillation type: persistent (3) Coronary artery disease Code(s): I25.10 - ATHSCL HEART DISEASE OF [place] CORONARY ARTERY W/O ANG PCTRS Qualifiers: Coronary Disease-Associated Artery/Lesion type: [place] artery [place] vs. transplanted heart: [place] heart Associated angina: without angina Qualified Code(s): I25.10 - Atherosclerotic heart disease of [place] coronary artery without angina pectoris (4) Demand ischemia Code(s): I24.8 - OTHER FORMS OF ACUTE ISCHEMIC HEART DISEASE (5) Pneumonia Code(s): J18.9 - PNEUMONIA, UNSPECIFIED ORGANISM Qualifiers: Pneumonia type: aspiration pneumonia (6) Sepsis Code(s): A41.9 - SEPSIS, UNSPECIFIED ORGANISM Qualifiers: Sepsis type: sepsis due to unspecified organism Qualified Code(s): A41.9 - Sepsis, unspecified organism (7) UTI (urinary tract infection) Code(s): N39.0 - URINARY TRACT INFECTION, SITE NOT SPECIFIED Qualifiers: Urinary tract infection type: site unspecified Hematuria presence: without hematuria Qualified Code(s): N39.0 - Urinary tract infection, site not specified
[2019-04-16] MEDS: RIVAROXABAN 20 MG TABLET PO SCH (18:45)
[2019-04-16] MEDS ORDERED: PT OWN MED DRAWER 7, Y5N ONE (22:03)
[2019-04-16] MEDS: ATORVASTATIN CA 10 MG TABLET (FP) PO SCH (22:10)
[2019-04-16] MEDS: DONEPEZIL HCL 10 MG TABLET (FP) PO SCH (22:10)
[2019-04-17] MEDS ORDERED: PT OWN MED DRAWER 7, Y5N ONE ×4 (02:14→21:38)
[2019-04-17] MEDS: CEFTAZIDIME/AVIBACTAM 2.5 GM in DEXTROSE 5%-WATER - 250 ML IVPB SCH ×3 (02:20→18:57)
[2019-04-17] MEDS: OFLOXACIN 0.3% OPHTHALMIC SOLUTION 5 ML BOTTLE OU SCH ×5 (06:34→21:45)
[2019-04-17] MEDS: clonazePAM 0.5 MG TABLET PO SCH ×3 (06:34→21:44)
[2019-04-17] MEDS: ALBUTEROL SO4 2.5/IPRATROPIUM 0.5 INH SOL 3 ML VIAL.NEB. NEB SCH ×4 (09:33→21:20)
--- NOTE | 2019-04-17 11:03 | PN ---
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 (short form) - Note 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: PULMONARY Denies shortness of breath, cough or wheezing. No fevers recorded. Vital Signs Period Temp Pulse Resp BP Sys/Crawford Pulse Ox Last 24 Hr 97.8 F-99 F 83-118 19-20 100-132/53-90 94 Gen: NAD at rest Heart: RRR Lung: decreased breath sounds at the bases Abd: soft, nontender Ext: no edema CBC, BMP 04/13/19 06:10 04/13/19 06:10 Active Medications Acetaminophen (Tylenol -) 650 mg PO Q6H PRN PRN Reason: FEVER Albuterol/Ipratropium (Duoneb -) 1 amp NEB RQID [facility] Last Admin: 04/17/19 09:33 Dose: 1 amp Anastrozole (Arimidex -) 1 mg PO DAILY [facility] Last Admin: 04/16/19 11:10 Dose: 1 mg Atorvastatin Calcium (Lipitor -) 10 mg PO HS [facility] Last Admin: 04/16/19 22:10 Dose: 10 mg Clonazepam (Klonopin -) 0.5 mg PO TID [facility] Last Admin: 04/17/19 06:34 Dose: 0.5 mg Divalproex Sodium (Depakote Sprinkle Caps -) 250 mg PO BID [facility] Last Admin: 04/16/19 22:13 Dose: 250 mg Donepezil HCl (Aricept -) 10 mg PO HS [facility] Last Admin: 04/16/19 22:10 Dose: 10 mg Escitalopram Oxalate (Lexapro -) 20 mg PO DAILY [facility] Last Admin: 04/16/19 11:09 Dose: 20 mg Folic Acid (Folic Acid -) 1 mg PO DAILY [facility] Last Admin: 04/16/19 11:09 Dose: 1 mg Furosemide (Lasix -) 20 mg PO DAILY [facility] Last Admin: 04/16/19 11:09 Dose: 20 mg Ceftazidime/Avibactam 2.5 gm/ (Dextrose) 250 mls @ 125 mls/hr IVPB Q8H-IV [facility] Last Admin: 04/17/19 02:20 Dose: 125 mls/hr Metoprolol Tartrate (Lopressor -) 75 mg PO BID [facility] Last Admin: 04/16/19 22:10 Dose: 75 mg Miconazole Nitrate (Miconazole Nitrate) 1 applic TP BID [facility] Last Admin: 04/16/19 22:11 Dose: 1 applic Ofloxacin (Ocuflox 0.3% Eye Drops -) 2 drop OU Q4HWA [facility] Last Admin: 04/17/19 06:34 Dose: 2 drop Pantoprazole Sodium (Protonix -) 40 mg PO DAILY [facility] Rivaroxaban (Xarelto) 20 mg PO 1800 [facility] Last Admin: 04/16/19 18:45 Dose: 20 mg A/P UTI Pneumonia Sepsis COPD Atrial Fibrillation CAD +Troponins likely [place] Ischemia LV Diastolic Dysfunction Dementia HTN Hyperlipidemia GERD h/o Breast Ca - antibiotics per ID - inhaled bronchodilators - rate control - continue anticoagulation - aspiration precautions - DVT prophylaxis
--- NOTE | 2019-04-17 11:42 | PN ---
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 (short form) - Note 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: Events noted awake and no complaints no fever Vital Signs - 24 hr 04/16/19 04/16/19 04/16/19 14:05 18:00 21:00 Temperature 97.8 F 98.9 F Pulse Rate 101 H 113 H Respiratory 20 20 20 Rate Blood Pressure 117/90 129/79 O2 Sat by Pulse 94 L Oximetry (%) 04/16/19 04/17/19 22:00 06:00 Temperature 98.7 F 99 F Pulse Rate 118 H 83 Respiratory 19 19 Rate Blood Pressure 132/65 100/53 L O2 Sat by Pulse Oximetry (%) Current Medications Generic Name Dose Route Start Last Admin Trade Name Freq PRN Reason Stop Dose Admin Acetaminophen 650 mg 04/13/19 19:45 Tylenol - PO Q6H PRN FEVER Albuterol/Ipratropium 1 amp 04/13/19 20:00 04/17/19 09:33 Duoneb - NEB 1 amp RQID [facility] Administration Anastrozole 1 mg 04/14/19 10:00 04/17/19 11:56 Arimidex - PO 1 mg DAILY [facility] Administration Atorvastatin Calcium 10 mg 04/13/19 22:00 04/16/19 22:10 Lipitor - PO 10 mg HS [facility] Administration Clonazepam 0.5 mg 04/13/19 22:00 04/17/19 06:34 Klonopin - PO 0.5 mg TID [facility] Administration Divalproex Sodium 250 mg 04/13/19 22:00 04/17/19 11:53 Depakote Sprinkle Caps - PO 250 mg BID [facility] Administration Donepezil HCl 10 mg 04/13/19 22:00 04/16/19 22:10 Aricept - PO 10 mg HS [facility] Administration Escitalopram Oxalate 20 mg 04/14/19 10:00 04/17/19 11:54 Lexapro - PO 20 mg DAILY [facility] Administration Folic Acid 1 mg 04/14/19 10:00 04/17/19 11:54 Folic Acid - PO 1 mg DAILY [facility] Administration Furosemide 20 mg 04/14/19 10:00 04/17/19 11:54 Lasix - PO 20 mg DAILY [facility] Administration Ceftazidime/Avibactam 2.5 gm/ 250 mls @ 125 mls/hr 04/14/19 02:00 04/17/19 02 :20 Dextrose IVPB 125 mls/hr Q8H-IV [facility] Administration Metoprolol Tartrate 75 mg 04/13/19 22:00 04/17/19 11:53 Lopressor - PO 75 mg BID [facility] Administration Miconazole Nitrate 1 applic 04/13/19 22:00 04/17/19 11:55 Miconazole Nitrate TP 1 applic BID [facility] Administration Ofloxacin 2 drop 04/13/19 22:00 04/17/19 11:54 Ocuflox 0.3% Eye Drops - OU 2 drop Q4HWA [facility] Administration Pantoprazole Sodium 40 mg 04/17/19 10:00 04/17/19 11:54 Protonix - PO 40 mg DAILY [facility] Administration Rivaroxaban 20 mg 04/14/19 18:00 04/16/19 18:45 Xarelto PO 20 mg 1800 [facility] Administration Microbiology 04/11/19 23:00 Blood Culture - Final Blood - Peripheral Venous NO GROWTH AFTER 5 DAYS INCUBATION 04/11/19 23:00 Blood Culture - Final Blood - Peripheral Venous NO GROWTH AFTER 5 DAYS INCUBATION 04/11/19 14:30 Blood Culture - Final Blood - Peripheral Venous NO GROWTH AFTER 5 DAYS INCUBATION 04/11/19 14:45 Blood Culture - Final Blood - Peripheral Venous NO GROWTH AFTER 5 DAYS INCUBATION Physical Examination Constitutional: Yes: Awake/ chronic ill appearance Eyes: Yes: conjuctiva clear Neck: Yes: WNL, Supple, Trachea Midline Cardiovascular: Yes: Tachycardia, Pulse Irregular, S1, S2 Respiratory: Yes: Diminished, no Rhonchi Gastrointestinal: Yes: soft Breast(s): Yes: Left (Mastectomy) Edema: No Peripheral Pulses WNL: Yes Neurological: Yes: drowsy A/P Abx cultures negative supportive care Pt is DNR and DNI antibiotics for 6 days on isolation for ESBL urine Problem List - Problems (1) Atrial fibrillation with RVR Code(s): I48.91 - UNSPECIFIED ATRIAL FIBRILLATION (2) COPD (chronic obstructive pulmonary disease) Code(s): J44.9 - CHRONIC OBSTRUCTIVE PULMONARY DISEASE, UNSPECIFIED (3) Elevated troponin Code(s): R79.89 - OTHER SPECIFIED ABNORMAL FINDINGS OF BLOOD CHEMISTRY (4) Systemic inflammatory response syndrome (SIRS) Code(s): R65.10 - SIRS OF NON-INFECTIOUS ORIGIN W/O ACUTE ORGAN DYSFUNCTION
[2019-04-17] MEDS: DIVALPROEX SODIUM 125 MG SPRINKLE CAPS PO SCH ×2 (11:53→21:44)
[2019-04-17] MEDS: METOPROLOL TARTRATE 25 MG TABLET (FP) PO SCH ×2 (11:53→21:44)
[2019-04-17] MEDS: FUROSEMIDE 20 MG TABLET (FP) PO SCH (11:54)
[2019-04-17] MEDS: FOLIC ACID 1 MG TABLET (FP) PO SCH (11:54)
[2019-04-17] MEDS: ESCITALOPRAM OXALATE 20 MG TABLET (FP) PO SCH (11:54)
[2019-04-17] MEDS: PANTOPRAZOLE 40 MG TABLET (FP) PO SCH (11:54)
[2019-04-17] MEDS: MICONAZOLE NITRATE 28 GM TUBE TP SCH ×2 (11:55→21:45)
[2019-04-17] MEDS: ANASTROZOLE 1 MG TABLET PO SCH (11:56)
--- NOTE | 2019-04-17 11:56 | PN ---
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, Physician History of Present Illness: stable no new issues - Current Medication List Current Medications: Active Medications Acetaminophen (Tylenol -) 650 mg PO Q6H PRN PRN Reason: FEVER Albuterol/Ipratropium (Duoneb -) 1 amp NEB RQID [facility] Last Admin: 04/17/19 09:33 Dose: 1 amp Anastrozole (Arimidex -) 1 mg PO DAILY [facility] Last Admin: 04/16/19 11:10 Dose: 1 mg Atorvastatin Calcium (Lipitor -) 10 mg PO HS [facility] Last Admin: 04/16/19 22:10 Dose: 10 mg Clonazepam (Klonopin -) 0.5 mg PO TID [facility] Last Admin: 04/17/19 06:34 Dose: 0.5 mg Divalproex Sodium (Depakote Sprinkle Caps -) 250 mg PO BID [facility] Last Admin: 04/16/19 22:13 Dose: 250 mg Donepezil HCl (Aricept -) 10 mg PO HS [facility] Last Admin: 04/16/19 22:10 Dose: 10 mg Escitalopram Oxalate (Lexapro -) 20 mg PO DAILY [facility] Last Admin: 04/16/19 11:09 Dose: 20 mg Folic Acid (Folic Acid -) 1 mg PO DAILY [facility] Last Admin: 04/16/19 11:09 Dose: 1 mg Furosemide (Lasix -) 20 mg PO DAILY [facility] Last Admin: 04/16/19 11:09 Dose: 20 mg Ceftazidime/Avibactam 2.5 gm/ (Dextrose) 250 mls @ 125 mls/hr IVPB Q8H-IV [facility] Last Admin: 04/17/19 02:20 Dose: 125 mls/hr Metoprolol Tartrate (Lopressor -) 75 mg PO BID [facility] Last Admin: 04/16/19 22:10 Dose: 75 mg Miconazole Nitrate (Miconazole Nitrate) 1 applic TP BID [facility] Last Admin: 04/16/19 22:11 Dose: 1 applic Ofloxacin (Ocuflox 0.3% Eye Drops -) 2 drop OU Q4HWA [facility] Last Admin: 04/17/19 06:34 Dose: 2 drop Pantoprazole Sodium (Protonix -) 40 mg PO DAILY [facility] Rivaroxaban (Xarelto) 20 mg PO 1800 [facility] Last Admin: 04/16/19 18:45 Dose: 20 mg - Objective Vital Signs: Vital Signs Temperature 99 F 04/17/19 06:00 Pulse Rate 83 04/17/19 06:00 Respiratory Rate 19 04/17/19 06:00 Blood Pressure 100/53 L 04/17/19 06:00 O2 Sat by Pulse Oximetry (%) 94 L 04/16/19 21:00 Constitutional: Yes: No Distress, Calm Cardiovascular: Yes: S1, S2 Respiratory: Yes: Regular, CTA Bilaterally Gastrointestinal: Yes: Normal Bowel Sounds, Soft Musculoskeletal: Yes: Other Extremities: Yes: Other Neurological: Yes: Alert, Oriented Psychiatric: Yes: Alert, Oriented Labs: CBC, BMP 04/13/19 06:10 04/13/19 06:10 INR, PTT INR 1.69 (0.83-1.09) H 04/08/19 10:55 Assessment/Plan Problem List - Problems (1) Atrial fibrillation with RVR Code(s): I48.91 - UNSPECIFIED ATRIAL FIBRILLATION (2) COPD (chronic obstructive pulmonary disease) Code(s): J44.9 - CHRONIC OBSTRUCTIVE PULMONARY DISEASE, UNSPECIFIED (3) Elevated troponin Code(s): R79.89 - OTHER SPECIFIED ABNORMAL FINDINGS OF BLOOD CHEMISTRY (4) Systemic inflammatory response syndrome (SIRS) Code(s): R65.10 - SIRS OF NON-INFECTIOUS ORIGIN W/O ACUTE ORGAN DYSFUNCTION uti fever plan continue abx will need abx for another 7 days
--- NOTE | 2019-04-17 14:10 | PN ---
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: Selected Entries 04/12/19 04/12/19 04/12/19 02:00 06:00 10:00 Breakfast Supper Temperature 99.4 F 99.1 F 99.6 F 04/12/19 04/12/19 04/12/19 11:25 14:00 18:15 Breakfast 50% Supper Temperature 98.5 F 101.5 F H 04/12/19 04/12/19 04/13/19 20:10 22:39 06:58 Breakfast Supper 25% Temperature 100.3 F H 99.4 F 04/13/19 10:00 Breakfast Supper Temperature 97.8 F Laboratory Tests 04/11/19 04/13/19 05:30 06:10 WBC 12.8 H 7.9 Selected Entries 04/13/19 04/13/19 04/13/19 06:58 10:00 14:00 Breakfast Lunch Supper Temperature 99.4 F 97.8 F 98.6 F 04/13/19 04/13/19 04/14/19 18:00 20:07 00:00 Breakfast Lunch Supper Temperature 98.8 F 100.2 F H 99 F 04/14/19 04/14/19 04/14/19 02:02 06:04 08:51 Breakfast Lunch Supper Temperature 100.3 F H 97.5 F L 98.5 F 04/14/19 04/14/19 04/14/19 14:30 18:00 22:00 Breakfast Lunch Supper Temperature 99.0 F 97.8 F 97.9 F 04/15/19 04/15/19 04/15/19 02:00 06:00 10:00 Breakfast Lunch Supper Temperature 99.7 F H 99.7 F H 97.6 F 04/15/19 04/15/19 04/15/19 11:18 14:35 19:38 Breakfast 25% Lunch 75% Supper 0 Temperature 98.8 F 98.6 F 04/16/19 04/16/19 04/16/19 10:58 11:14 12:53 Breakfast 50% Lunch 25% Supper Temperature 98.3 F 04/16/19 04/16/19 04/16/19 14:05 18:00 22:00 Breakfast Lunch Supper 50% Temperature 97.8 F 98.9 F 98.7 F 04/17/19 04/17/19 06:00 10:56 Breakfast 50% Lunch Supper Temperature 99 F Laboratory Tests 04/13/19 06:10 WBC 7.9 Had fever spikes Placed on nectar thick liquid, prophylactically. Improving. No fever. Continue nectar thick liquid for now.
[2019-04-17] MEDS: RIVAROXABAN 20 MG TABLET PO SCH (18:57)
[2019-04-17] MEDS: ATORVASTATIN CA 10 MG TABLET (FP) PO SCH (21:44)
[2019-04-17] MEDS: DONEPEZIL HCL 10 MG TABLET (FP) PO SCH (21:44)
[2019-04-18] MEDS ORDERED: PT OWN MED DRAWER 7, Y5N ONE ×2 (02:46→08:42)
[2019-04-18] MEDS: CEFTAZIDIME/AVIBACTAM 2.5 GM in DEXTROSE 5%-WATER - 250 ML IVPB SCH ×3 (02:50→17:29)
[2019-04-18] MEDS: clonazePAM 0.5 MG TABLET PO SCH ×3 (05:40→21:56)
[2019-04-18] MEDS: OFLOXACIN 0.3% OPHTHALMIC SOLUTION 5 ML BOTTLE OU SCH ×5 (05:41→21:57)
[2019-04-18] MEDS: ALBUTEROL SO4 2.5/IPRATROPIUM 0.5 INH SOL 3 ML VIAL.NEB. NEB SCH ×3 (09:40→16:20)
[2019-04-18] MEDS: FOLIC ACID 1 MG TABLET (FP) PO SCH (10:19)
[2019-04-18] MEDS: PANTOPRAZOLE 40 MG TABLET (FP) PO SCH (10:19)
[2019-04-18] MEDS: DIVALPROEX SODIUM 125 MG SPRINKLE CAPS PO SCH ×2 (10:19→21:57)
[2019-04-18] MEDS: METOPROLOL TARTRATE 25 MG TABLET (FP) PO SCH ×2 (10:19→21:56)
[2019-04-18] MEDS: FUROSEMIDE 20 MG TABLET (FP) PO SCH (10:19)
[2019-04-18] MEDS: ESCITALOPRAM OXALATE 20 MG TABLET (FP) PO SCH (10:19)
[2019-04-18] MEDS: MICONAZOLE NITRATE 28 GM TUBE TP SCH ×2 (10:20→21:57)
--- NOTE | 2019-04-18 10:54 | PN ---
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, Physician History of Present Illness: no new issues - Current Medication List Current Medications: Active Medications Acetaminophen (Tylenol -) 650 mg PO Q6H PRN PRN Reason: FEVER Albuterol/Ipratropium (Duoneb -) 1 amp NEB RQID [facility] Last Admin: 04/17/19 21:20 Dose: 1 amp Anastrozole (Arimidex -) 1 mg PO DAILY [facility] Last Admin: 04/17/19 11:56 Dose: 1 mg Atorvastatin Calcium (Lipitor -) 10 mg PO HS [facility] Last Admin: 04/17/19 21:44 Dose: 10 mg Clonazepam (Klonopin -) 0.5 mg PO TID [facility] Last Admin: 04/18/19 05:40 Dose: 0.5 mg Divalproex Sodium (Depakote Sprinkle Caps -) 250 mg PO BID [facility] Last Admin: 04/18/19 10:19 Dose: 250 mg Donepezil HCl (Aricept -) 10 mg PO HS [facility] Last Admin: 04/17/19 21:44 Dose: 10 mg Escitalopram Oxalate (Lexapro -) 20 mg PO DAILY [facility] Last Admin: 04/18/19 10:19 Dose: 20 mg Folic Acid (Folic Acid -) 1 mg PO DAILY [facility] Last Admin: 04/18/19 10:19 Dose: 1 mg Furosemide (Lasix -) 20 mg PO DAILY [facility] Last Admin: 04/18/19 10:19 Dose: 20 mg Ceftazidime/Avibactam 2.5 gm/ (Dextrose) 250 mls @ 125 mls/hr IVPB Q8H-IV [facility] Last Admin: 04/18/19 10:18 Dose: 125 mls/hr Metoprolol Tartrate (Lopressor -) 75 mg PO BID [facility] Last Admin: 04/18/19 10:19 Dose: 75 mg Miconazole Nitrate (Miconazole Nitrate) 1 applic TP BID [facility] Last Admin: 04/18/19 10:20 Dose: 1 applic Ofloxacin (Ocuflox 0.3% Eye Drops -) 2 drop OU Q4HWA [facility] Last Admin: 04/18/19 10:20 Dose: 2 drop Pantoprazole Sodium (Protonix -) 40 mg PO DAILY [facility] Last Admin: 04/18/19 10:19 Dose: 40 mg Rivaroxaban (Xarelto) 20 mg PO 1800 [facility] Last Admin: 04/17/19 18:57 Dose: 20 mg - Objective Vital Signs: Vital Signs Temperature 99.5 F 04/18/19 04:00 Pulse Rate 87 04/18/19 04:00 Respiratory Rate 19 04/18/19 04:00 Blood Pressure 135/74 04/18/19 04:00 O2 Sat by Pulse Oximetry (%) 94 L 04/17/19 21:00 Constitutional: Yes: No Distress, Calm Cardiovascular: Yes: S1, S2 Respiratory: Yes: Regular, CTA Bilaterally Gastrointestinal: Yes: Normal Bowel Sounds, Soft Musculoskeletal: Yes: WNL Extremities: Yes: WNL Neurological: Yes: Alert Psychiatric: Yes: Alert, Other Labs: CBC, BMP 04/13/19 06:10 04/13/19 06:10 INR, PTT INR 1.69 (0.83-1.09) H 04/08/19 10:55 Assessment/Plan Problem List - Problems (1) Atrial fibrillation with RVR Code(s): I48.91 - UNSPECIFIED ATRIAL FIBRILLATION (2) COPD (chronic obstructive pulmonary disease) Code(s): J44.9 - CHRONIC OBSTRUCTIVE PULMONARY DISEASE, UNSPECIFIED (3) Elevated troponin Code(s): R79.89 - OTHER SPECIFIED ABNORMAL FINDINGS OF BLOOD CHEMISTRY (4) Systemic inflammatory response syndrome (SIRS) Code(s): R65.10 - SIRS OF NON-INFECTIOUS ORIGIN W/O ACUTE ORGAN DYSFUNCTION uti fever plan continue abx will need abx for another 5 days
[2019-04-18] MEDS: ANASTROZOLE 1 MG TABLET PO SCH (11:26)
--- NOTE | 2019-04-18 12:41 | PN ---
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 (short form) - Note 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: Events noted awake and no complaints no fever met with son Vital Signs - 24 hr 04/17/19 04/17/19 04/17/19 15:03 20:31 21:00 Temperature 98.5 F Pulse Rate 84 Respiratory 20 18 19 Rate Blood Pressure 123/64 111/59 L O2 Sat by Pulse 94 L Oximetry (%) 04/17/19 04/18/19 21:53 04:00 Temperature 97.5 F L 99.5 F Pulse Rate 97 H 87 Respiratory 19 19 Rate Blood Pressure 134/74 135/74 O2 Sat by Pulse Oximetry (%) Current Medications Generic Name Dose Route Start Last Admin Trade Name Freq PRN Reason Stop Dose Admin Acetaminophen 650 mg 04/13/19 19:45 Tylenol - PO Q6H PRN FEVER Albuterol/Ipratropium 1 amp 04/13/19 20:00 04/17/19 21:20 Duoneb - NEB 1 amp RQID [facility] Administration Anastrozole 1 mg 04/14/19 10:00 04/18/19 11:26 Arimidex - PO 1 mg DAILY [facility] Administration Atorvastatin Calcium 10 mg 04/13/19 22:00 04/17/19 21:44 Lipitor - PO 10 mg HS [facility] Administration Clonazepam 0.5 mg 04/13/19 22:00 04/18/19 05:40 Klonopin - PO 0.5 mg TID [facility] Administration Divalproex Sodium 250 mg 04/13/19 22:00 04/18/19 10:19 Depakote Sprinkle Caps - PO 250 mg BID [facility] Administration Donepezil HCl 10 mg 04/13/19 22:00 04/17/19 21:44 Aricept - PO 10 mg HS [facility] Administration Escitalopram Oxalate 20 mg 04/14/19 10:00 04/18/19 10:19 Lexapro - PO 20 mg DAILY [facility] Administration Folic Acid 1 mg 04/14/19 10:00 04/18/19 10:19 Folic Acid - PO 1 mg DAILY [facility] Administration Furosemide 20 mg 04/14/19 10:00 04/18/19 10:19 Lasix - PO 20 mg DAILY [facility] Administration Ceftazidime/Avibactam 2.5 gm/ 250 mls @ 125 mls/hr 04/14/19 02:00 04/18/19 10 :18 Dextrose IVPB 125 mls/hr Q8H-IV [facility] Administration Metoprolol Tartrate 75 mg 04/13/19 22:00 04/18/19 10:19 Lopressor - PO 75 mg BID [facility] Administration Miconazole Nitrate 1 applic 04/13/19 22:00 04/18/19 10:20 Miconazole Nitrate TP 1 applic BID [facility] Administration Ofloxacin 2 drop 04/13/19 22:00 04/18/19 10:20 Ocuflox 0.3% Eye Drops - OU 2 drop Q4HWA [facility] Administration Pantoprazole Sodium 40 mg 04/17/19 10:00 04/18/19 10:19 Protonix - PO 40 mg DAILY [facility] Administration Rivaroxaban 20 mg 04/14/19 18:00 04/17/19 18:57 Xarelto PO 20 mg 1800 [facility] Administration Physical Examination Constitutional: Yes: Awake/ chronic ill appearance Eyes: Yes: conjuctiva clear Neck: Yes: WNL, Supple, Trachea Midline Cardiovascular: Yes: Tachycardia, Pulse Irregular, S1, S2 Respiratory: Yes: Diminished, no Rhonchi Gastrointestinal: Yes: soft Breast(s): Yes: Left (Mastectomy) Edema: No Peripheral Pulses WNL: Yes Neurological: Yes: drowsy A/P Abx cultures negative supportive care Pt is DNR and DNI antibiotics for 5 days on isolation for ESBL urine family wants another [place] Problem List - Problems (1) Atrial fibrillation with RVR Code(s): I48.91 - UNSPECIFIED ATRIAL FIBRILLATION (2) COPD (chronic obstructive pulmonary disease) Code(s): J44.9 - CHRONIC OBSTRUCTIVE PULMONARY DISEASE, UNSPECIFIED (3) Elevated troponin Code(s): R79.89 - OTHER SPECIFIED ABNORMAL FINDINGS OF BLOOD CHEMISTRY (4) Systemic inflammatory response syndrome (SIRS) Code(s): R65.10 - SIRS OF NON-INFECTIOUS ORIGIN W/O ACUTE ORGAN DYSFUNCTION
--- NOTE | 2019-04-18 16:48 | PN ---
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, Physician History of Present Illness: PULMONARY ALERT,CONFUSED,-RESP DISTRESS - Current Medication List Current Medications: Active Medications Acetaminophen (Tylenol -) 650 mg PO Q6H PRN PRN Reason: FEVER Albuterol/Ipratropium (Duoneb -) 1 amp NEB RQID [facility] Last Admin: 04/18/19 16:20 Dose: 1 amp Anastrozole (Arimidex -) 1 mg PO DAILY [facility] Last Admin: 04/18/19 11:26 Dose: 1 mg Atorvastatin Calcium (Lipitor -) 10 mg PO HS [facility] Last Admin: 04/17/19 21:44 Dose: 10 mg Clonazepam (Klonopin -) 0.5 mg PO TID [facility] Last Admin: 04/18/19 14:54 Dose: 0.5 mg Divalproex Sodium (Depakote Sprinkle Caps -) 250 mg PO BID [facility] Last Admin: 04/18/19 10:19 Dose: 250 mg Donepezil HCl (Aricept -) 10 mg PO HS [facility] Last Admin: 04/17/19 21:44 Dose: 10 mg Escitalopram Oxalate (Lexapro -) 20 mg PO DAILY [facility] Last Admin: 04/18/19 10:19 Dose: 20 mg Folic Acid (Folic Acid -) 1 mg PO DAILY [facility] Last Admin: 04/18/19 10:19 Dose: 1 mg Furosemide (Lasix -) 20 mg PO DAILY [facility] Last Admin: 04/18/19 10:19 Dose: 20 mg Ceftazidime/Avibactam 2.5 gm/ (Dextrose) 250 mls @ 125 mls/hr IVPB Q8H-IV [facility] Last Admin: 04/18/19 10:18 Dose: 125 mls/hr Metoprolol Tartrate (Lopressor -) 75 mg PO BID [facility] Last Admin: 04/18/19 10:19 Dose: 75 mg Miconazole Nitrate (Miconazole Nitrate) 1 applic TP BID [facility] Last Admin: 04/18/19 10:20 Dose: 1 applic Ofloxacin (Ocuflox 0.3% Eye Drops -) 2 drop OU Q4HWA [facility] Last Admin: 04/18/19 14:54 Dose: Not Given Pantoprazole Sodium (Protonix -) 40 mg PO DAILY [facility] Last Admin: 04/18/19 10:19 Dose: 40 mg Rivaroxaban (Xarelto) 20 mg PO 1800 [facility] Last Admin: 04/17/19 18:57 Dose: 20 mg - Objective Vital Signs: Vital Signs Temperature 98.8 F 04/18/19 15:34 Pulse Rate 93 H 04/18/19 15:34 Respiratory Rate 20 04/18/19 15:34 Blood Pressure 136/52 L 04/18/19 15:34 O2 Sat by Pulse Oximetry (%) 92 L 04/18/19 09:00 Constitutional: Yes: Well Nourished, Calm Eyes: Yes: WNL HENT: Yes: WNL Neck: Yes: WNL Cardiovascular: Yes: Pulse Irregular, S1, S2 Respiratory: Yes: Diminished Gastrointestinal: Yes: Normal Bowel Sounds, Soft Extremities: Yes: WNL Edema: No Labs: CBC, BMP Assessment/Plan Problem List - Problems (1) Anxiety and depression Code(s): F41.9 - ANXIETY DISORDER, UNSPECIFIED; F32.9 - MAJOR DEPRESSIVE DISORDER, SINGLE EPISODE, UNSPECIFIED (2) Asthma Code(s): J45.909 - UNSPECIFIED ASTHMA, UNCOMPLICATED (3) COPD (chronic obstructive pulmonary disease) Code(s): J44.9 - CHRONIC OBSTRUCTIVE PULMONARY DISEASE, UNSPECIFIED (4) Elevated troponin Code(s): R79.89 - OTHER SPECIFIED ABNORMAL FINDINGS OF BLOOD CHEMISTRY (5) GERD (gastroesophageal reflux disease) Code(s): K21.9 - GASTRO-ESOPHAGEAL REFLUX DISEASE WITHOUT ESOPHAGITIS (6) History of dysphagia Code(s): Z87.19 - PERSONAL HISTORY OF OTHER DISEASES OF THE DIGESTIVE SYSTEM (7) Acute respiratory failure with hypoxia Code(s): J96.01 - ACUTE RESPIRATORY FAILURE WITH HYPOXIA (8) Atrial fibrillation Code(s): I48.91 - UNSPECIFIED ATRIAL FIBRILLATION Qualifiers: Atrial fibrillation type: persistent (9) Coronary artery disease Code(s): I25.10 - ATHSCL HEART DISEASE OF [place] CORONARY ARTERY W/O ANG PCTRS Qualifiers: Coronary Disease-Associated Artery/Lesion type: [place] artery [place] vs. transplanted heart: [place] heart Associated angina: without angina Qualified Code(s): I25.10 - Atherosclerotic heart disease of [place] coronary artery without angina pectoris (10) Dementia Code(s): F03.90 - UNSPECIFIED DEMENTIA WITHOUT BEHAVIORAL DISTURBANCE Qualifiers: Dementia type: unspecified type Dementia behavioral disturbance: without behavioral disturbance Qualified Code(s): F03.90 - Unspecified dementia without behavioral disturbance (11) Diastolic dysfunction Code(s): I51.9 - HEART DISEASE, UNSPECIFIED (12) Hyperlipidemia Code(s): E78.5 - HYPERLIPIDEMIA, UNSPECIFIED Qualifiers: Hyperlipidemia type: pure hypercholesterolemia Qualified Code(s): E78.00 - Pure hypercholesterolemia, unspecified; E78.0 - Pure hypercholesterolemia (13) Hypoxia Code(s): R09.02 - HYPOXEMIA (14) Pneumonia Code(s): J18.9 - PNEUMONIA, UNSPECIFIED ORGANISM Qualifiers: Pneumonia type: aspiration pneumonia Assessment/Plan ABX per ID O2 to maintain O2 sat 90% Aspiration precautions BD TX Xarelto F/U Chest x-ray DR JASSO
[2019-04-18] MEDS: RIVAROXABAN 20 MG TABLET PO SCH (17:29)
[2019-04-18] MEDS: ATORVASTATIN CA 10 MG TABLET (FP) PO SCH (21:56)
[2019-04-18] MEDS: DONEPEZIL HCL 10 MG TABLET (FP) PO SCH (21:57)
[2019-04-19] MEDS: CEFTAZIDIME/AVIBACTAM 2.5 GM in DEXTROSE 5%-WATER - 250 ML IVPB SCH ×3 (02:14→17:39)
[2019-04-19] MEDS: clonazePAM 0.5 MG TABLET PO SCH ×3 (05:36→22:33)
[2019-04-19] MEDS: OFLOXACIN 0.3% OPHTHALMIC SOLUTION 5 ML BOTTLE OU SCH ×5 (05:36→22:35)
[2019-04-19] MEDS ORDERED: PT OWN MED DRAWER 7, Y5N ONE ×2 (09:50→17:33)
[2019-04-19] MEDS: ESCITALOPRAM OXALATE 20 MG TABLET (FP) PO SCH (09:55)
[2019-04-19] MEDS: METOPROLOL TARTRATE 25 MG TABLET (FP) PO SCH ×2 (09:55→22:33)
[2019-04-19] MEDS: PANTOPRAZOLE 40 MG TABLET (FP) PO SCH (09:55)
[2019-04-19] MEDS: FUROSEMIDE 20 MG TABLET (FP) PO SCH (09:55)
[2019-04-19] MEDS: ANASTROZOLE 1 MG TABLET PO SCH (09:55)
[2019-04-19] MEDS: DIVALPROEX SODIUM 125 MG SPRINKLE CAPS PO SCH ×2 (09:55→22:34)
--- NOTE | 2019-04-19 09:55 | PN ---
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 (short form) - Note 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: PULMONARY Denies shortness of breath, cough or wheezing. No fevers recorded. Vital Signs Period Temp Pulse Resp BP Sys/[place] Pulse Ox Last 24 Hr 97.7 F-98.8 F 93-124 18-20 116-143/52-89 92 Gen: NAD at rest Heart: RRR Lung: decreased breath sounds at the bases Abd: soft, nontender Ext: no edema CBC, BMP 04/13/19 06:10 04/13/19 06:10 Active Medications Acetaminophen (Tylenol -) 650 mg PO Q6H PRN PRN Reason: FEVER Anastrozole (Arimidex -) 1 mg PO DAILY [facility] Last Admin: 04/18/19 11:26 Dose: 1 mg Atorvastatin Calcium (Lipitor -) 10 mg PO HS [facility] Last Admin: 04/18/19 21:56 Dose: 10 mg Clonazepam (Klonopin -) 0.5 mg PO TID [facility] Last Admin: 04/19/19 05:36 Dose: 0.5 mg Divalproex Sodium (Depakote Sprinkle Caps -) 250 mg PO BID [facility] Last Admin: 04/18/19 21:57 Dose: 250 mg Donepezil HCl (Aricept -) 10 mg PO HS [facility] Last Admin: 04/18/19 21:57 Dose: 10 mg Escitalopram Oxalate (Lexapro -) 20 mg PO DAILY [facility] Last Admin: 04/18/19 10:19 Dose: 20 mg Folic Acid (Folic Acid -) 1 mg PO DAILY [facility] Last Admin: 04/18/19 10:19 Dose: 1 mg Furosemide (Lasix -) 20 mg PO DAILY [facility] Last Admin: 04/18/19 10:19 Dose: 20 mg Ceftazidime/Avibactam 2.5 gm/ (Dextrose) 250 mls @ 125 mls/hr IVPB Q8H-IV [facility] Last Admin: 04/19/19 02:14 Dose: 125 mls/hr Metoprolol Tartrate (Lopressor -) 75 mg PO BID [facility] Last Admin: 04/18/19 21:56 Dose: 75 mg Miconazole Nitrate (Miconazole Nitrate) 1 applic TP BID [facility] Last Admin: 04/18/19 21:57 Dose: 1 applic Ofloxacin (Ocuflox 0.3% Eye Drops -) 2 drop OU Q4HWA [facility] Last Admin: 04/19/19 05:36 Dose: 2 drop Pantoprazole Sodium (Protonix -) 40 mg PO DAILY [facility] Last Admin: 04/18/19 10:19 Dose: 40 mg Rivaroxaban (Xarelto) 20 mg PO 1800 [facility] Last Admin: 04/18/19 17:29 Dose: 20 mg A/P UTI Pneumonia Sepsis COPD Atrial Fibrillation CAD +Troponins likely [place] Ischemia LV Diastolic Dysfunction Dementia HTN Hyperlipidemia GERD h/o Breast Ca - antibiotics per ID - inhaled bronchodilators - rate control - continue anticoagulation - aspiration precautions - DVT prophylaxis
[2019-04-19] MEDS: MICONAZOLE NITRATE 28 GM TUBE TP SCH ×2 (10:01→22:34)
--- NOTE | 2019-04-19 10:28 | PN ---
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, Physician History of Present Illness: stable no new issues - Current Medication List Current Medications: Active Medications Acetaminophen (Tylenol -) 650 mg PO Q6H PRN PRN Reason: FEVER Anastrozole (Arimidex -) 1 mg PO DAILY [facility] Last Admin: 04/19/19 09:55 Dose: 1 mg Atorvastatin Calcium (Lipitor -) 10 mg PO HS [facility] Last Admin: 04/18/19 21:56 Dose: 10 mg Clonazepam (Klonopin -) 0.5 mg PO TID [facility] Last Admin: 04/19/19 05:36 Dose: 0.5 mg Divalproex Sodium (Depakote Sprinkle Caps -) 250 mg PO BID [facility] Last Admin: 04/19/19 09:55 Dose: 250 mg Donepezil HCl (Aricept -) 10 mg PO HS [facility] Last Admin: 04/18/19 21:57 Dose: 10 mg Escitalopram Oxalate (Lexapro -) 20 mg PO DAILY [facility] Last Admin: 04/19/19 09:55 Dose: 20 mg Folic Acid (Folic Acid -) 1 mg PO DAILY [facility] Last Admin: 04/18/19 10:19 Dose: 1 mg Furosemide (Lasix -) 20 mg PO DAILY [facility] Last Admin: 04/19/19 09:55 Dose: 20 mg Ceftazidime/Avibactam 2.5 gm/ (Dextrose) 250 mls @ 125 mls/hr IVPB Q8H-IV [facility] Last Admin: 04/19/19 09:58 Dose: 125 mls/hr Metoprolol Tartrate (Lopressor -) 75 mg PO BID [facility] Last Admin: 04/19/19 09:55 Dose: 75 mg Miconazole Nitrate (Miconazole Nitrate) 1 applic TP BID [facility] Last Admin: 04/19/19 10:01 Dose: 1 applic Ofloxacin (Ocuflox 0.3% Eye Drops -) 2 drop OU Q4HWA [facility] Last Admin: 04/19/19 10:02 Dose: 2 drop Pantoprazole Sodium (Protonix -) 40 mg PO DAILY [facility] Last Admin: 04/19/19 09:55 Dose: 40 mg Rivaroxaban (Xarelto) 20 mg PO 1800 [facility] Last Admin: 04/18/19 17:29 Dose: 20 mg - Objective Vital Signs: Vital Signs Temperature 97.7 F 04/19/19 06:00 Pulse Rate 106 H 04/19/19 06:00 Respiratory Rate 20 04/19/19 06:00 Blood Pressure 143/89 04/19/19 06:00 O2 Sat by Pulse Oximetry (%) 92 L 04/18/19 21:00 Constitutional: Yes: No Distress, Calm Cardiovascular: Yes: S1, S2 Respiratory: Yes: Regular, CTA Bilaterally Gastrointestinal: Yes: Normal Bowel Sounds, Soft Musculoskeletal: Yes: WNL Extremities: Yes: Other Neurological: Yes: Alert, Other Psychiatric: Yes: Other Labs: CBC, BMP 04/13/19 06:10 04/13/19 06:10 INR, PTT INR 1.69 (0.83-1.09) H 04/08/19 10:55 Assessment/Plan Problem List - Problems (1) Atrial fibrillation with RVR Code(s): I48.91 - UNSPECIFIED ATRIAL FIBRILLATION (2) COPD (chronic obstructive pulmonary disease) Code(s): J44.9 - CHRONIC OBSTRUCTIVE PULMONARY DISEASE, UNSPECIFIED (3) Elevated troponin Code(s): R79.89 - OTHER SPECIFIED ABNORMAL FINDINGS OF BLOOD CHEMISTRY (4) Systemic inflammatory response syndrome (SIRS) Code(s): R65.10 - SIRS OF NON-INFECTIOUS ORIGIN W/O ACUTE ORGAN DYSFUNCTION uti fever plan continue abx will need abx for another 4 days
--- NOTE | 2019-04-19 11:10 | PN ---
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 (short form) - Note 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: Events noted awake and no complaints no fever Vital Signs - 24 hr 04/18/19 04/18/19 04/18/19 15:34 18:22 21:00 Temperature 98.8 F Pulse Rate 93 H 124 H Respiratory 20 18 Rate Blood Pressure 136/52 L 116/74 O2 Sat by Pulse 92 L Oximetry (%) 04/18/19 04/19/19 22:00 06:00 Temperature 98.8 F 97.7 F Pulse Rate 113 H 106 H Respiratory 20 20 Rate Blood Pressure 130/80 143/89 O2 Sat by Pulse Oximetry (%) Current Medications Generic Name Dose Route Start Last Admin Trade Name Freq PRN Reason Stop Dose Admin Acetaminophen 650 mg 04/13/19 19:45 Tylenol - PO Q6H PRN FEVER Anastrozole 1 mg 04/14/19 10:00 04/19/19 09:55 Arimidex - PO 1 mg DAILY [facility] Administration Atorvastatin Calcium 10 mg 04/13/19 22:00 04/18/19 21:56 Lipitor - PO 10 mg HS [facility] Administration Clonazepam 0.5 mg 04/13/19 22:00 04/19/19 05:36 Klonopin - PO 0.5 mg TID [facility] Administration Divalproex Sodium 250 mg 04/13/19 22:00 04/19/19 09:55 Depakote Sprinkle Caps - PO 250 mg BID [facility] Administration Donepezil HCl 10 mg 04/13/19 22:00 04/18/19 21:57 Aricept - PO 10 mg HS [facility] Administration Escitalopram Oxalate 20 mg 04/14/19 10:00 04/19/19 09:55 Lexapro - PO 20 mg DAILY [facility] Administration Folic Acid 1 mg 04/14/19 10:00 04/18/19 10:19 Folic Acid - PO 1 mg DAILY [facility] Administration Furosemide 20 mg 04/14/19 10:00 04/19/19 09:55 Lasix - PO 20 mg DAILY [facility] Administration Ceftazidime/Avibactam 2.5 gm/ 250 mls @ 125 mls/hr 04/14/19 02:00 04/19/19 09 :58 Dextrose IVPB 125 mls/hr Q8H-IV [facility] Administration Metoprolol Tartrate 75 mg 04/13/19 22:00 04/19/19 09:55 Lopressor - PO 75 mg BID [facility] Administration Miconazole Nitrate 1 applic 04/13/19 22:00 04/19/19 10:01 Miconazole Nitrate TP 1 applic BID [facility] Administration Ofloxacin 2 drop 04/13/19 22:00 04/19/19 10:02 Ocuflox 0.3% Eye Drops - OU 2 drop Q4HWA [facility] Administration Pantoprazole Sodium 40 mg 04/17/19 10:00 04/19/19 09:55 Protonix - PO 40 mg DAILY [facility] Administration Rivaroxaban 20 mg 04/14/19 18:00 04/18/19 17:29 Xarelto PO 20 mg 1800 [facility] Administration Physical Examination Constitutional: Yes: Awake/ chronic ill appearance Eyes: Yes: conjuctiva clear Neck: Yes: WNL, Supple, Trachea Midline Cardiovascular: Yes: Tachycardia, Pulse Irregular, S1, S2 Respiratory: Yes: Diminished, no Rhonchi Gastrointestinal: Yes: soft Breast(s): Yes: Left (Mastectomy) Edema: No Peripheral Pulses WNL: Yes Neurological: Yes: drowsy A/P Abx cultures negative supportive care Pt is DNR and DNI antibiotics for 4 days on isolation for ESBL urine family wants another OK Problem List - Problems (1) Atrial fibrillation with RVR Code(s): I48.91 - UNSPECIFIED ATRIAL FIBRILLATION (2) COPD (chronic obstructive pulmonary disease) Code(s): J44.9 - CHRONIC OBSTRUCTIVE PULMONARY DISEASE, UNSPECIFIED (3) Elevated troponin Code(s): R79.89 - OTHER SPECIFIED ABNORMAL FINDINGS OF BLOOD CHEMISTRY (4) Systemic inflammatory response syndrome (SIRS) Code(s): R65.10 - SIRS OF NON-INFECTIOUS ORIGIN W/O ACUTE ORGAN DYSFUNCTION
[2019-04-19] MEDS: FOLIC ACID 1 MG TABLET (FP) PO SCH (11:22)
[2019-04-19] MEDS: RIVAROXABAN 20 MG TABLET PO SCH (17:39)
[2019-04-19] MEDS: ATORVASTATIN CA 10 MG TABLET (FP) PO SCH (22:33)
[2019-04-19] MEDS: DONEPEZIL HCL 10 MG TABLET (FP) PO SCH (22:33)
[2019-04-20] MEDS: CEFTAZIDIME/AVIBACTAM 2.5 GM in DEXTROSE 5%-WATER - 250 ML IVPB SCH ×3 (02:13→17:19)
[2019-04-20] MEDS: clonazePAM 0.5 MG TABLET PO SCH ×3 (05:51→22:46)
[2019-04-20] MEDS: OFLOXACIN 0.3% OPHTHALMIC SOLUTION 5 ML BOTTLE OU SCH ×5 (05:51→22:03)
[2019-04-20] MEDS: ANASTROZOLE 1 MG TABLET PO SCH (10:01)
--- NOTE | 2019-04-20 10:33 | PN ---
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 (short form) - Note 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: PULMONARY Confused VSS/Afebrile Gen: NAD at rest Heart: RRR Lung: decreased breath sounds at the bases Abd: soft, nontender Ext: no edema Labs/meds/notes/images/micro reviewed A/P UTI Pneumonia Sepsis COPD Atrial Fibrillation CAD +Troponins likely [place] Ischemia LV Diastolic Dysfunction Dementia HTN Hyperlipidemia GERD h/o Breast Ca - antibiotics per ID - inhaled bronchodilators - rate control - continue anticoagulation - aspiration precautions - DVT prophylaxis Niraj GREGORY MD
[2019-04-20] MEDS ORDERED: PT OWN MED DRAWER 7, Y5N ONE ×2 (10:36→17:10)
[2019-04-20] MEDS: ESCITALOPRAM OXALATE 20 MG TABLET (FP) PO SCH (11:00)
[2019-04-20] MEDS: FUROSEMIDE 20 MG TABLET (FP) PO SCH (11:00)
[2019-04-20] MEDS: PANTOPRAZOLE 40 MG TABLET (FP) PO SCH (11:00)
[2019-04-20] MEDS: METOPROLOL TARTRATE 25 MG TABLET (FP) PO SCH ×2 (11:00→22:02)
[2019-04-20] MEDS: FOLIC ACID 1 MG TABLET (FP) PO SCH (11:00)
[2019-04-20] MEDS: DIVALPROEX SODIUM 125 MG SPRINKLE CAPS PO SCH ×2 (11:00→22:01)
[2019-04-20] MEDS: MICONAZOLE NITRATE 28 GM TUBE TP SCH ×2 (11:02→22:02)
--- NOTE | 2019-04-20 11:51 | PN ---
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 (short form) - Note 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: pt seen/ examined chart reviewed awake/ comfortable Vital Signs Temp 97.8 F 04/20/19 05:00 Pulse 82 04/20/19 05:00 Resp 20 04/20/19 05:00 BP 115/75 04/20/19 05:00 Pulse Ox 95 04/19/19 21:00 Intake & Output 04/19/19 04/19/19 04/20/19 11:59 23:59 11:59 Intake Total 200 1000 250 Balance 200 1000 250 Weight 171 lb 1.6 oz Intake: IVPB 500 250 Oral 200 500 Other: Voiding Method Incontinent Incontinent Incontinent # Unmeasured Voids Void 1 1 Bowel Movement Yes # Bowel Movements 1 Weight Measurement Method Patient Lift Scale Active Medications Acetaminophen (Tylenol -) 650 mg PO Q6H PRN PRN Reason: FEVER Anastrozole (Arimidex -) 1 mg PO DAILY [facility] Last Admin: 04/20/19 10:01 Dose: 1 mg Atorvastatin Calcium (Lipitor -) 10 mg PO [facility] Last Admin: 04/19/19 22:33 Dose: 10 mg Clonazepam (Klonopin -) 0.5 mg PO TID [facility] Last Admin: 04/20/19 05:51 Dose: 0.5 mg Divalproex Sodium (Depakote Sprinkle Caps -) 250 mg PO BID [facility] Last Admin: 04/20/19 11:00 Dose: 250 mg Donepezil HCl (Aricept -) 10 mg PO HS [facility] Last Admin: 04/19/19 22:33 Dose: 10 mg Escitalopram Oxalate (Lexapro -) 20 mg PO DAILY [facility] Last Admin: 04/20/19 11:00 Dose: 20 mg Folic Acid (Folic Acid -) 1 mg PO DAILY [facility] Last Admin: 04/20/19 11:00 Dose: 1 mg Furosemide (Lasix -) 20 mg PO DAILY [facility] Last Admin: 04/20/19 11:00 Dose: 20 mg Ceftazidime/Avibactam 2.5 gm/ (Dextrose) 250 mls @ 125 mls/hr IVPB Q8H-IV [facility] Last Admin: 04/20/19 10:01 Dose: 125 mls/hr Metoprolol Tartrate (Lopressor -) 75 mg PO BID [facility] Last Admin: 04/20/19 11:00 Dose: 75 mg Miconazole Nitrate (Miconazole Nitrate) 1 applic TP BID [facility] Last Admin: 04/20/19 11:02 Dose: 1 applic Ofloxacin (Ocuflox 0.3% Eye Drops -) 2 drop OU Q4HWA [facility] Last Admin: 04/20/19 11:02 Dose: 2 drop Pantoprazole Sodium (Protonix -) 40 mg PO DAILY [facility] Last Admin: 04/20/19 11:00 Dose: 40 mg Rivaroxaban (Xarelto) 20 mg PO 1800 [facility] Last Admin: 04/19/19 17:39 Dose: 20 mg CBC, BMP 04/13/19 06:10 04/13/19 06:10 Physical Examination Constitutional: Yes: Awake/ chronic ill appearance Eyes: Yes: conjuctiva clear Neck: Yes: WNL, Supple, Trachea Midline Cardiovascular: Yes: Tachycardia, Pulse Irregular, S1, S2 Respiratory: Yes: Diminished, no Rhonchi Gastrointestinal: Yes: soft Breast(s): Yes: Left (Mastectomy) Edema: No Peripheral Pulses WNL: Yes Neurological: Yes: Awake A/P Abx cultures negative supportive care Pt is DNR and DNI antibiotics for 3 more days as per i/d on isolation for ESBL urine will follow Problem List - Problems (1) Acute respiratory failure with hypoxia Code(s): J96.01 - ACUTE RESPIRATORY FAILURE WITH HYPOXIA (2) Atrial fibrillation Code(s): I48.91 - UNSPECIFIED ATRIAL FIBRILLATION Qualifiers: Atrial fibrillation type: persistent (3) Coronary artery disease Code(s): I25.10 - ATHSCL HEART DISEASE OF [place] CORONARY ARTERY W/O ANG PCTRS Qualifiers: Coronary Disease-Associated Artery/Lesion type: [place] artery [place] vs. transplanted heart: [place] heart Associated angina: without angina Qualified Code(s): I25.10 - Atherosclerotic heart disease of [place] coronary artery without angina pectoris (4) Demand ischemia Code(s): I24.8 - OTHER FORMS OF ACUTE ISCHEMIC HEART DISEASE (5) Pneumonia Code(s): J18.9 - PNEUMONIA, UNSPECIFIED ORGANISM Qualifiers: Pneumonia type: aspiration pneumonia (6) Sepsis Code(s): A41.9 - SEPSIS, UNSPECIFIED ORGANISM Qualifiers: Sepsis type: sepsis due to unspecified organism Qualified Code(s): A41.9 - Sepsis, unspecified organism (7) UTI (urinary tract infection) Code(s): N39.0 - URINARY TRACT INFECTION, SITE NOT SPECIFIED Qualifiers: Urinary tract infection type: site unspecified Hematuria presence: without hematuria Qualified Code(s): N39.0 - Urinary tract infection, site not specified
--- NOTE | 2019-04-20 12:44 | PN ---
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, Physician History of Present Illness: stable no new issues - Current Medication List Current Medications: Active Medications Acetaminophen (Tylenol -) 650 mg PO Q6H PRN PRN Reason: FEVER Anastrozole (Arimidex -) 1 mg PO DAILY [facility] Last Admin: 04/20/19 10:01 Dose: 1 mg Atorvastatin Calcium (Lipitor -) 10 mg PO HS [facility] Last Admin: 04/19/19 22:33 Dose: 10 mg Clonazepam (Klonopin -) 0.5 mg PO TID [facility] Last Admin: 04/20/19 05:51 Dose: 0.5 mg Divalproex Sodium (Depakote Sprinkle Caps -) 250 mg PO BID [facility] Last Admin: 04/20/19 11:00 Dose: 250 mg Donepezil HCl (Aricept -) 10 mg PO HS [facility] Last Admin: 04/19/19 22:33 Dose: 10 mg Escitalopram Oxalate (Lexapro -) 20 mg PO DAILY [facility] Last Admin: 04/20/19 11:00 Dose: 20 mg Folic Acid (Folic Acid -) 1 mg PO DAILY [facility] Last Admin: 04/20/19 11:00 Dose: 1 mg Furosemide (Lasix -) 20 mg PO DAILY [facility] Last Admin: 04/20/19 11:00 Dose: 20 mg Ceftazidime/Avibactam 2.5 gm/ (Dextrose) 250 mls @ 125 mls/hr IVPB Q8H-IV [facility] Last Admin: 04/20/19 10:01 Dose: 125 mls/hr Metoprolol Tartrate (Lopressor -) 75 mg PO BID [facility] Last Admin: 04/20/19 11:00 Dose: 75 mg Miconazole Nitrate (Miconazole Nitrate) 1 applic TP BID [facility] Last Admin: 04/20/19 11:02 Dose: 1 applic Ofloxacin (Ocuflox 0.3% Eye Drops -) 2 drop OU Q4HWA [facility] Last Admin: 04/20/19 11:02 Dose: 2 drop Pantoprazole Sodium (Protonix -) 40 mg PO DAILY [facility] Last Admin: 04/20/19 11:00 Dose: 40 mg Rivaroxaban (Xarelto) 20 mg PO 1800 [facility] Last Admin: 04/19/19 17:39 Dose: 20 mg - Objective Vital Signs: Vital Signs Temperature 97.8 F 04/20/19 05:00 Pulse Rate 82 04/20/19 05:00 Respiratory Rate 20 04/20/19 05:00 Blood Pressure 115/75 04/20/19 05:00 O2 Sat by Pulse Oximetry (%) 95 04/19/19 21:00 Constitutional: Yes: No Distress, Calm Cardiovascular: Yes: S1, S2 Respiratory: Yes: Regular, CTA Bilaterally Gastrointestinal: Yes: Normal Bowel Sounds, Soft Musculoskeletal: Yes: WNL Extremities: Yes: WNL Neurological: Yes: Alert Psychiatric: Yes: Alert Labs: CBC, BMP 04/13/19 06:10 04/13/19 06:10 INR, PTT INR 1.69 (0.83-1.09) H 04/08/19 10:55 Assessment/Plan Problem List - Problems (1) Atrial fibrillation with RVR Code(s): I48.91 - UNSPECIFIED ATRIAL FIBRILLATION (2) COPD (chronic obstructive pulmonary disease) Code(s): J44.9 - CHRONIC OBSTRUCTIVE PULMONARY DISEASE, UNSPECIFIED (3) Elevated troponin Code(s): R79.89 - OTHER SPECIFIED ABNORMAL FINDINGS OF BLOOD CHEMISTRY (4) Systemic inflammatory response syndrome (SIRS) Code(s): R65.10 - SIRS OF NON-INFECTIOUS ORIGIN W/O ACUTE ORGAN DYSFUNCTION uti fever plan continue abx will need abx for another 3 days
[2019-04-20] MEDS: RIVAROXABAN 20 MG TABLET PO SCH (18:00)
[2019-04-20] MEDS: ATORVASTATIN CA 10 MG TABLET (FP) PO SCH (22:02)
[2019-04-20] MEDS: DONEPEZIL HCL 10 MG TABLET (FP) PO SCH (22:46)
[2019-04-21] MEDS: OFLOXACIN 0.3% OPHTHALMIC SOLUTION 5 ML BOTTLE OU SCH ×5 (06:38→18:35)
[2019-04-21] MEDS: clonazePAM 0.5 MG TABLET PO SCH ×2 (06:39→13:53)
[2019-04-21] MEDS ORDERED: PT OWN MED DRAWER 7, Y5N ONE (09:54)
[2019-04-21] MEDS: ANASTROZOLE 1 MG TABLET PO SCH (10:09)
[2019-04-21] MEDS: PANTOPRAZOLE 40 MG TABLET (FP) PO SCH (10:09)
[2019-04-21] MEDS: FUROSEMIDE 20 MG TABLET (FP) PO SCH (10:09)
[2019-04-21] MEDS: FOLIC ACID 1 MG TABLET (FP) PO SCH (10:09)
[2019-04-21] MEDS: ESCITALOPRAM OXALATE 20 MG TABLET (FP) PO SCH (10:09)
[2019-04-21] MEDS: METOPROLOL TARTRATE 25 MG TABLET (FP) PO SCH (10:09)
[2019-04-21] MEDS: DIVALPROEX SODIUM 125 MG SPRINKLE CAPS PO SCH (10:09)
[2019-04-21] MEDS: MICONAZOLE NITRATE 28 GM TUBE TP SCH (10:10)
--- NOTE | 2019-04-21 10:58 | PN ---
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 (short form) - Note 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: Events noted awake and no complaints no fever Vital Signs - 24 hr 04/20/19 04/21/19 04/21/19 22:00 06:07 09:00 Temperature 99.2 F 99.1 F Pulse Rate 94 H 100 H Respiratory 24 H 20 19 Rate Blood Pressure 128/96 135/78 O2 Sat by Pulse 97 Oximetry (%) 04/21/19 04/21/19 04/21/19 10:00 14:53 17:21 Temperature 98.8 F 97.6 F 98.0 F Pulse Rate 80 81 85 Respiratory 19 18 20 Rate Blood Pressure 127/72 113/66 119/54 L O2 Sat by Pulse Oximetry (%) 04/21/19 18:15 Temperature 98.2 F Pulse Rate 88 Respiratory 20 Rate Blood Pressure 142/77 O2 Sat by Pulse Oximetry (%) Current Medications Generic Name Dose Route Start Last Admin Trade Name Freq PRN Reason Stop Dose Admin Acetaminophen 650 mg 04/13/19 19:45 Tylenol - PO Q6H PRN FEVER Anastrozole 1 mg 04/14/19 10:00 04/21/19 10:09 Arimidex - PO 1 mg DAILY [facility] Administration Atorvastatin Calcium 10 mg 04/13/19 22:00 04/20/19 22:02 Lipitor - PO 10 mg HS [facility] Administration Clonazepam 0.5 mg 04/20/19 22:15 04/21/19 13:53 Klonopin - PO 0.5 mg TID [facility] Administration Divalproex Sodium 250 mg 04/13/19 22:00 04/21/19 10:09 Depakote Sprinkle Caps - PO 250 mg BID [facility] Administration Donepezil HCl 10 mg 04/13/19 22:00 04/20/19 22:46 Aricept - PO 10 mg HS [facility] Administration Escitalopram Oxalate 20 mg 04/14/19 10:00 04/21/19 10:09 Lexapro - PO 20 mg DAILY [facility] Administration Folic Acid 1 mg 04/14/19 10:00 04/21/19 10:09 Folic Acid - PO 1 mg DAILY [facility] Administration Furosemide 20 mg 04/14/19 10:00 04/21/19 10:09 Lasix - PO 20 mg DAILY [facility] Administration Ceftazidime/Avibactam 2.5 gm/ 250 mls @ 125 mls/hr 04/21/19 11:30 04/21/19 18 :56 Dextrose IVPB 125 mls/hr Q8H-IV [facility] Administration Protocol Metoprolol Tartrate 75 mg 04/13/19 22:00 04/21/19 10:09 Lopressor - PO 75 mg BID [facility] Administration Miconazole Nitrate 1 applic 04/13/19 22:00 04/21/19 10:10 Miconazole Nitrate TP 1 applic BID [facility] Administration Ofloxacin 2 drop 04/13/19 22:00 04/21/19 18:35 Ocuflox 0.3% Eye Drops - OU Not Given Q4HWA [facility] Pantoprazole Sodium 40 mg 04/17/19 10:00 04/21/19 10:09 Protonix - PO 40 mg DAILY [facility] Administration Rivaroxaban 20 mg 04/14/19 18:00 04/21/19 18:35 Xarelto PO 20 mg 1800 [facility] Administration Physical Examination Constitutional: Yes: Awake/ chronic ill appearance Eyes: Yes: conjuctiva clear Neck: Yes: WNL, Supple, Trachea Midline Cardiovascular: Yes: Tachycardia, Pulse Irregular, S1, S2 Respiratory: Yes: Diminished, no Rhonchi Gastrointestinal: Yes: soft Breast(s): Yes: Left (Mastectomy) Edema: No Peripheral Pulses WNL: Yes Neurological: Yes: drowsy A/P Abx cultures negative supportive care Pt is DNR and DNI antibiotics for 3days on isolation for ESBL urine family wants another CT Problem List - Problems (1) Atrial fibrillation with RVR Code(s): I48.91 - UNSPECIFIED ATRIAL FIBRILLATION (2) COPD (chronic obstructive pulmonary disease) Code(s): J44.9 - CHRONIC OBSTRUCTIVE PULMONARY DISEASE, UNSPECIFIED (3) Elevated troponin Code(s): R79.89 - OTHER SPECIFIED ABNORMAL FINDINGS OF BLOOD CHEMISTRY (4) Systemic inflammatory response syndrome (SIRS) Code(s): R65.10 - SIRS OF NON-INFECTIOUS ORIGIN W/O ACUTE ORGAN DYSFUNCTION
--- NOTE | 2019-04-21 11:06 | PN ---
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 (short form) - Note Progress Note: PULMONARY Denies shortness of breath, cough or wheezing. No fevers recorded. Vital Signs Period Temp Pulse Resp BP Sys/[place] Pulse Ox Last 24 Hr 98 F-99.2 F 76-100 20-24 128-152/78-96 97 Gen: NAD at rest Heart: RRR Lung: decreased breath sounds at the bases Abd: soft, nontender Ext: no edema CBC, BMP 04/13/19 06:10 04/13/19 06:10 Active Medications Acetaminophen (Tylenol -) 650 mg PO Q6H PRN PRN Reason: FEVER Anastrozole (Arimidex -) 1 mg PO DAILY [facility] Last Admin: 04/21/19 10:09 Dose: 1 mg Atorvastatin Calcium (Lipitor -) 10 mg PO HS [facility] Last Admin: 04/20/19 22:02 Dose: 10 mg Clonazepam (Klonopin -) 0.5 mg PO TID [facility] Last Admin: 04/21/19 06:39 Dose: 0.5 mg Divalproex Sodium (Depakote Sprinkle Caps -) 250 mg PO BID [facility] Last Admin: 04/21/19 10:09 Dose: 250 mg Donepezil HCl (Aricept -) 10 mg PO HS [facility] Last Admin: 04/20/19 22:46 Dose: 10 mg Escitalopram Oxalate (Lexapro -) 20 mg PO DAILY [facility] Last Admin: 04/21/19 10:09 Dose: 20 mg Folic Acid (Folic Acid -) 1 mg PO DAILY [facility] Last Admin: 04/21/19 10:09 Dose: 1 mg Furosemide (Lasix -) 20 mg PO DAILY [facility] Last Admin: 04/21/19 10:09 Dose: 20 mg Metoprolol Tartrate (Lopressor -) 75 mg PO BID [facility] Last Admin: 04/21/19 10:09 Dose: 75 mg Miconazole Nitrate (Miconazole Nitrate) 1 applic TP BID [facility] Last Admin: 04/21/19 10:10 Dose: 1 applic Ofloxacin (Ocuflox 0.3% Eye Drops -) 2 drop OU Q4HWA [facility] Last Admin: 04/21/19 10:10 Dose: 2 drop Pantoprazole Sodium (Protonix -) 40 mg PO DAILY [facility] Last Admin: 04/21/19 10:09 Dose: 40 mg Rivaroxaban (Xarelto) 20 mg PO 1800 [facility] Last Admin: 04/20/19 18:00 Dose: 20 mg A/P UTI Pneumonia Sepsis COPD Atrial Fibrillation CAD +Troponins likely Demand Ischemia LV Diastolic Dysfunction Dementia HTN Hyperlipidemia GERD h/o Breast Ca - antibiotics per ID - inhaled bronchodilators - rate control - continue anticoagulation - aspiration precautions - DVT prophylaxis
[2019-04-21] MEDS ORDERED: cefTAZidime PENTAHYDRATE 2 GM/11.5 ML SYRINGE (RESTRICTED TO ID) IVPUSH SCH (11:15)
[2019-04-21] MEDS: CEFTAZIDIME/AVIBACTAM 2.5 GM in DEXTROSE 5%-WATER - 250 ML IVPB SCH ×2 (11:55→18:56)
--- NOTE | 2019-04-21 12:54 | PN ---
Progress Note, Physician History of Present Illness: Pt is alert and responsive. Denies SOB or pain. No specific complaints. Tmax 99.2F - Current Medication List Current Medications: Active Medications Acetaminophen (Tylenol -) 650 mg PO Q6H PRN PRN Reason: FEVER Anastrozole (Arimidex -) 1 mg PO DAILY [facility] Last Admin: 04/21/19 10:09 Dose: 1 mg Atorvastatin Calcium (Lipitor -) 10 mg PO HS [facility] Last Admin: 04/20/19 22:02 Dose: 10 mg Clonazepam (Klonopin -) 0.5 mg PO TID [facility] Last Admin: 04/21/19 06:39 Dose: 0.5 mg Divalproex Sodium (Depakote Sprinkle Caps -) 250 mg PO BID [facility] Last Admin: 04/21/19 10:09 Dose: 250 mg Donepezil HCl (Aricept -) 10 mg PO HS [facility] Last Admin: 04/20/19 22:46 Dose: 10 mg Escitalopram Oxalate (Lexapro -) 20 mg PO DAILY [facility] Last Admin: 04/21/19 10:09 Dose: 20 mg Folic Acid (Folic Acid -) 1 mg PO DAILY [facility] Last Admin: 04/21/19 10:09 Dose: 1 mg Furosemide (Lasix -) 20 mg PO DAILY [facility] Last Admin: 04/21/19 10:09 Dose: 20 mg Ceftazidime/Avibactam 2.5 gm/ (Dextrose) 250 mls @ 125 mls/hr IVPB Q8H-IV [facility]; Protocol Metoprolol Tartrate (Lopressor -) 75 mg PO BID [facility] Last Admin: 04/21/19 10:09 Dose: 75 mg Miconazole Nitrate (Miconazole Nitrate) 1 applic TP BID [facility] Last Admin: 04/21/19 10:10 Dose: 1 applic Ofloxacin (Ocuflox 0.3% Eye Drops -) 2 drop OU Q4HWA [facility] Last Admin: 04/21/19 10:10 Dose: 2 drop Pantoprazole Sodium (Protonix -) 40 mg PO DAILY [facility] Last Admin: 04/21/19 10:09 Dose: 40 mg Rivaroxaban (Xarelto) 20 mg PO 1800 [facility] Last Admin: 04/20/19 18:00 Dose: 20 mg - Objective Vital Signs: Vital Signs Temperature 98.8 F 04/21/19 10:00 Pulse Rate 80 04/21/19 10:00 Respiratory Rate 19 04/21/19 10:00 Blood Pressure 127/72 04/21/19 10:00 O2 Sat by Pulse Oximetry (%) 97 04/21/19 09:00 Constitutional: Yes: No Distress, Calm Cardiovascular: Yes: Regular Rate and Rhythm Respiratory: Yes: Regular Gastrointestinal: Yes: Normal Bowel Sounds, Soft Genitourinary: Yes: WNL Extremities: Yes: WNL Edema: No Neurological: Yes: Alert Labs: CBC, BMP 04/13/19 06:10 04/13/19 06:10 INR, PTT INR 1.69 (0.83-1.09) H 04/08/19 10:55 Microbiology 04/11/19 23:00 Blood - Peripheral Venous Blood Culture - Final NO GROWTH AFTER 5 DAYS INCUBATION 04/11/19 23:00 Blood - Peripheral Venous Blood Culture - Final NO GROWTH AFTER 5 DAYS INCUBATION 04/11/19 14:30 Blood - Peripheral Venous Blood Culture - Final NO GROWTH AFTER 5 DAYS INCUBATION 04/11/19 14:45 Blood - Peripheral Venous Blood Culture - Final NO GROWTH AFTER 5 DAYS INCUBATION 04/08/19 11:20 Blood - Peripheral Venous Blood Culture - Final NO GROWTH AFTER 5 DAYS INCUBATION 04/08/19 10:55 Blood - Peripheral Venous Blood Culture - Final NO GROWTH AFTER 5 DAYS INCUBATION 04/08/19 11:57 Urine - Urine - Catheterized Urine Culture - Final Escherichia Coli Esbl [employer] - ....Imaging Chest X-ray: Report Reviewed Problem List - Problems (1) Atrial fibrillation with RVR Code(s): I48.91 - UNSPECIFIED ATRIAL FIBRILLATION (2) COPD (chronic obstructive pulmonary disease) Code(s): J44.9 - CHRONIC OBSTRUCTIVE PULMONARY DISEASE, UNSPECIFIED (3) Systemic inflammatory response syndrome (SIRS) Code(s): R65.10 - SIRS OF NON-INFECTIOUS ORIGIN W/O ACUTE ORGAN DYSFUNCTION (4) UTI (urinary tract infection) Code(s): N39.0 - URINARY TRACT INFECTION, SITE NOT SPECIFIED Qualifiers: Urinary tract infection type: site unspecified Hematuria presence: without hematuria Qualified Code(s): N39.0 - Urinary tract infection, site not specified Assessment/Plan -- continue antibiotics for 2 more days -- monitor temps -- Pt alert, without distress at this time
[2019-04-21] MEDS: RIVAROXABAN 20 MG TABLET PO SCH (18:35)
--- NOTE | 2019-04-21 18:36 | HOSP ---
Subjective - Review of Symptoms Neurological: Yes: Confusion, Other (slid OOB) Physical Examination Vital Signs: Vital Signs Temperature 98.0 F 04/21/19 17:21 Pulse Rate 85 04/21/19 17:21 Respiratory Rate 20 04/21/19 17:21 Blood Pressure 119/54 L 04/21/19 17:21 O2 Sat by Pulse Oximetry (%) 97 04/21/19 09:00 Constitutional: Yes: Anxious, Mild Distress Extremities: Yes: Other Peripheral Pulses WNL: Yes Peripheral Pulses: Left Radial: 2+, Right Radial: 2+, Left Doralis Pedis: 2+, Right Dorsalis Pedis: 2+, Left Femoral: 2+, Right Femoral: 2+ Integumentary: Yes: Bruising, Other (1cm abrasison to right hand) Labs: CBC, BMP 04/13/19 06:10 04/13/19 06:10 Hospitalist Encounter Recommendations/Interventions: Notified by RN that patient slid OOB in between side rail and floor. Pt severely contracted and confused. 1cm abrasion noted to right hand. No crepitus to knees or abrasions noted. Will apply bacitracin. No need for Xray. Will monitor for swelling . Critical Care Total Critical Care Time (in minutes): 15
[2019-04-21] MEDS ORDERED: LORazepam 2 MG/ML SDV VIAL IVPUSH ONE (20:34)
[2019-04-22] MEDS: ATORVASTATIN CA 10 MG TABLET (FP) PO SCH ×2 (00:52→21:02)
[2019-04-22] MEDS: MICONAZOLE NITRATE 28 GM TUBE TP SCH ×3 (00:52→21:02)
[2019-04-22] MEDS: DONEPEZIL HCL 10 MG TABLET (FP) PO SCH ×2 (00:52→21:02)
[2019-04-22] MEDS: METOPROLOL TARTRATE 25 MG TABLET (FP) PO SCH ×3 (00:52→21:01)
[2019-04-22] MEDS: DIVALPROEX SODIUM 125 MG SPRINKLE CAPS PO SCH ×3 (00:52→21:05)
[2019-04-22] MEDS: clonazePAM 0.5 MG TABLET PO SCH ×4 (00:52→21:02)
[2019-04-22] MEDS: OFLOXACIN 0.3% OPHTHALMIC SOLUTION 5 ML BOTTLE OU SCH ×6 (00:52→21:03)
[2019-04-22] MEDS ORDERED: PT OWN MED DRAWER 7, Y5N ONE ×2 (02:44→08:54)
[2019-04-22] MEDS: CEFTAZIDIME/AVIBACTAM 2.5 GM in DEXTROSE 5%-WATER - 250 ML IVPB SCH ×3 (03:04→17:11)
[2019-04-22] MEDS: ESCITALOPRAM OXALATE 20 MG TABLET (FP) PO SCH (09:32)
[2019-04-22] MEDS: ANASTROZOLE 1 MG TABLET PO SCH (09:32)
[2019-04-22] MEDS: PANTOPRAZOLE 40 MG TABLET (FP) PO SCH (09:32)
[2019-04-22] MEDS: FUROSEMIDE 20 MG TABLET (FP) PO SCH (09:32)
[2019-04-22] MEDS: FOLIC ACID 1 MG TABLET (FP) PO SCH (09:33)
--- NOTE | 2019-04-22 11:39 | PN ---
Progress Note (short form) - Note Progress Note: PULMONARY Pt nonverbal today. No fevers recorded. Vital Signs Period Temp Pulse Resp BP Sys/Crawford Pulse Ox Last 24 Hr 97.6 F-98.9 F 81-97 18-20 113-145/54-87 97-97 Gen: NAD at rest Heart: RRR Lung: decreased breath sounds at the bases Abd: soft, nontender Ext: no edema CBC, BMP 04/13/19 06:10 04/13/19 06:10 Active Medications Acetaminophen (Tylenol -) 650 mg PO Q6H PRN PRN Reason: FEVER Anastrozole (Arimidex -) 1 mg PO DAILY [facility] Last Admin: 04/22/19 09:32 Dose: 1 mg Atorvastatin Calcium (Lipitor -) 10 mg PO HS [facility] Last Admin: 04/22/19 00:52 Dose: Not Given Clonazepam (Klonopin -) 0.5 mg PO TID [facility] Last Admin: 04/22/19 06:57 Dose: 0.5 mg Divalproex Sodium (Depakote Sprinkle Caps -) 250 mg PO BID [facility] Last Admin: 04/22/19 09:33 Dose: 250 mg Donepezil HCl (Aricept -) 10 mg PO HS [facility] Last Admin: 04/22/19 00:52 Dose: Not Given Escitalopram Oxalate (Lexapro -) 20 mg PO DAILY [facility] Last Admin: 04/22/19 09:32 Dose: 20 mg Folic Acid (Folic Acid -) 1 mg PO DAILY [facility] Last Admin: 04/22/19 09:33 Dose: 1 mg Furosemide (Lasix -) 20 mg PO DAILY [facility] Last Admin: 04/22/19 09:32 Dose: 20 mg Ceftazidime/Avibactam 2.5 gm/ (Dextrose) 250 mls @ 125 mls/hr IVPB Q8H-IV [facility]; Protocol Last Admin: 04/22/19 09:45 Dose: 125 mls/hr Metoprolol Tartrate (Lopressor -) 75 mg PO BID [facility] Last Admin: 04/22/19 09:32 Dose: 75 mg Miconazole Nitrate (Miconazole Nitrate) 1 applic TP BID [facility] Last Admin: 04/22/19 00:52 Dose: Not Given Ofloxacin (Ocuflox 0.3% Eye Drops -) 2 drop OU Q4HWA [facility] Last Admin: 04/22/19 09:48 Dose: Not Given Pantoprazole Sodium (Protonix -) 40 mg PO DAILY [facility] Last Admin: 04/22/19 09:32 Dose: 40 mg Rivaroxaban (Xarelto) 20 mg PO 1800 [facility] Last Admin: 04/21/19 18:35 Dose: 20 mg A/P UTI Pneumonia Sepsis COPD Atrial Fibrillation CAD +Troponins likely [place] Ischemia LV Diastolic Dysfunction Dementia HTN Hyperlipidemia GERD h/o Breast Ca - complete antibiotics per ID - inhaled bronchodilators - rate control - continue anticoagulation - aspiration precautions - DVT prophylaxis
--- NOTE | 2019-04-22 14:02 | PN ---
Progress Note, Physician History of Present Illness: Pt resting comfortably. No distress. Is afebrile. - Current Medication List Current Medications: Active Medications Acetaminophen (Tylenol -) 650 mg PO Q6H PRN PRN Reason: FEVER Anastrozole (Arimidex -) 1 mg PO DAILY [facility] Last Admin: 04/22/19 09:32 Dose: 1 mg Atorvastatin Calcium (Lipitor -) 10 mg PO HS [facility] Last Admin: 04/22/19 00:52 Dose: Not Given Clonazepam (Klonopin -) 0.5 mg PO TID [facility] Last Admin: 04/22/19 13:26 Dose: 0.5 mg Divalproex Sodium (Depakote Sprinkle Caps -) 250 mg PO BID [facility] Last Admin: 04/22/19 09:33 Dose: 250 mg Donepezil HCl (Aricept -) 10 mg PO HS [facility] Last Admin: 04/22/19 00:52 Dose: Not Given Escitalopram Oxalate (Lexapro -) 20 mg PO DAILY [facility] Last Admin: 04/22/19 09:32 Dose: 20 mg Folic Acid (Folic Acid -) 1 mg PO DAILY [facility] Last Admin: 04/22/19 09:33 Dose: 1 mg Furosemide (Lasix -) 20 mg PO DAILY [facility] Last Admin: 04/22/19 09:32 Dose: 20 mg Ceftazidime/Avibactam 2.5 gm/ (Dextrose) 250 mls @ 125 mls/hr IVPB Q8H-IV [facility]; Protocol Last Admin: 04/22/19 09:45 Dose: 125 mls/hr Metoprolol Tartrate (Lopressor -) 75 mg PO BID [facility] Last Admin: 04/22/19 09:32 Dose: 75 mg Miconazole Nitrate (Miconazole Nitrate) 1 applic TP BID [facility] Last Admin: 04/22/19 11:54 Dose: 1 applic Ofloxacin (Ocuflox 0.3% Eye Drops -) 2 drop OU Q4HWA [facility] Last Admin: 04/22/19 13:28 Dose: 2 drop Pantoprazole Sodium (Protonix -) 40 mg PO DAILY [facility] Last Admin: 04/22/19 09:32 Dose: 40 mg Rivaroxaban (Xarelto) 20 mg PO 1800 [facility] Last Admin: 04/21/19 18:35 Dose: 20 mg - Objective Vital Signs: Vital Signs Temperature 97.9 F 04/22/19 09:45 Pulse Rate 84 04/22/19 09:45 Respiratory Rate 20 04/22/19 09:45 Blood Pressure 114/74 04/22/19 09:45 O2 Sat by Pulse Oximetry (%) 97 04/22/19 09:00 Constitutional: Yes: No Distress Eyes: Yes: Conjunctiva Clear Neck: Yes: Supple Cardiovascular: Yes: Regular Rate and Rhythm Respiratory: Yes: Regular Gastrointestinal: Yes: Normal Bowel Sounds, Soft Genitourinary: Yes: WNL Edema: No Neurological: Yes: Alert Labs: CBC, BMP 04/13/19 06:10 04/13/19 06:10 INR, PTT INR 1.69 (0.83-1.09) H 04/08/19 10:55 Microbiology 04/11/19 23:00 Blood - Peripheral Venous Blood Culture - Final NO GROWTH AFTER 5 DAYS INCUBATION 04/11/19 23:00 Blood - Peripheral Venous Blood Culture - Final NO GROWTH AFTER 5 DAYS INCUBATION 04/11/19 14:30 Blood - Peripheral Venous Blood Culture - Final NO GROWTH AFTER 5 DAYS INCUBATION 04/11/19 14:45 Blood - Peripheral Venous Blood Culture - Final NO GROWTH AFTER 5 DAYS INCUBATION 04/08/19 11:20 Blood - Peripheral Venous Blood Culture - Final NO GROWTH AFTER 5 DAYS INCUBATION 04/08/19 10:55 Blood - Peripheral Venous Blood Culture - Final NO GROWTH AFTER 5 DAYS INCUBATION 04/08/19 11:57 Urine - Urine - Catheterized Urine Culture - Final Escherichia Coli [employer]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 - Problems (1) Atrial fibrillation with RVR Code(s): I48.91 - UNSPECIFIED ATRIAL FIBRILLATION (2) COPD (chronic obstructive pulmonary disease) Code(s): J44.9 - CHRONIC OBSTRUCTIVE PULMONARY DISEASE, UNSPECIFIED (3) Systemic inflammatory response syndrome (SIRS) Code(s): R65.10 - SIRS OF NON-INFECTIOUS ORIGIN W/O ACUTE ORGAN DYSFUNCTION (4) UTI (urinary tract infection) Code(s): N39.0 - URINARY TRACT INFECTION, SITE NOT SPECIFIED Qualifiers: Urinary tract infection type: site unspecified Hematuria presence: without hematuria Qualified Code(s): N39.0 - Urinary tract infection, site not specified Assessment/Plan -- continue antibiotics for 1 more day -- afebrile, currently stable
--- NOTE | 2019-04-22 17:10 | PN ---
Progress Note (short form) - Note Progress Note: Events noted awake and no complaints no fever Vital Signs - 24 hr 04/21/19 04/21/19 04/21/19 17:21 18:15 19:51 Temperature 98.0 F 98.2 F 98.9 F Pulse Rate 85 88 86 Respiratory 20 20 18 Rate Blood Pressure 119/54 L 142/77 145/79 O2 Sat by Pulse Oximetry (%) 04/21/19 04/22/19 04/22/19 21:00 01:00 02:53 Temperature 98.5 F 98.6 F Pulse Rate 95 H 90 Respiratory 18 20 20 Rate Blood Pressure 145/75 144/87 O2 Sat by Pulse 97 Oximetry (%) 04/22/19 04/22/19 04/22/19 03:23 05:51 06:00 Temperature 98.6 F 98.5 F 98.5 F Pulse Rate 90 97 H 97 H Respiratory 20 20 20 Rate Blood Pressure 144/87 128/82 128/82 O2 Sat by Pulse Oximetry (%) 04/22/19 04/22/19 04/22/19 09:00 09:45 13:51 Temperature 97.9 F 98.7 F Pulse Rate 84 89 Respiratory 20 20 20 Rate Blood Pressure 114/74 142/83 O2 Sat by Pulse 97 Oximetry (%) 04/22/19 14:00 Temperature 98.7 F Pulse Rate 88 Respiratory 20 Rate Blood Pressure 103/65 O2 Sat by Pulse Oximetry (%) Current Medications Generic Name Dose Route Start Last Admin Trade Name Freq PRN Reason Stop Dose Admin Acetaminophen 650 mg 04/13/19 19:45 Tylenol - PO Q6H PRN FEVER Anastrozole 1 mg 04/14/19 10:00 04/22/19 09:32 Arimidex - PO 1 mg DAILY [facility] Administration Atorvastatin Calcium 10 mg 04/13/19 22:00 04/22/19 00:52 Lipitor - PO Not Given HS [facility] Clonazepam 0.5 mg 04/20/19 22:15 04/22/19 13:26 Klonopin - PO 0.5 mg TID [facility] Administration Divalproex Sodium 250 mg 04/13/19 22:00 04/22/19 09:33 Depakote Sprinkle Caps - PO 250 mg BID [facility] Administration Donepezil HCl 10 mg 04/13/19 22:00 04/22/19 00:52 Aricept - PO Not Given HS [facility] Escitalopram Oxalate 20 mg 04/14/19 10:00 04/22/19 09:32 Lexapro - PO 20 mg DAILY [facility] Administration Folic Acid 1 mg 04/14/19 10:00 04/22/19 09:33 Folic Acid - PO 1 mg DAILY [facility] Administration Furosemide 20 mg 04/14/19 10:00 04/22/19 09:32 Lasix - PO 20 mg DAILY [facility] Administration Ceftazidime/Avibactam 2.5 gm/ 250 mls @ 125 mls/hr 04/21/19 11:30 04/22/19 09 :45 Dextrose IVPB 125 mls/hr Q8H-IV [facility] Administration Protocol Metoprolol Tartrate 75 mg 04/13/19 22:00 04/22/19 09:32 Lopressor - PO 75 mg BID [facility] Administration Miconazole Nitrate 1 applic 04/13/19 22:00 04/22/19 11:54 Miconazole Nitrate TP 1 applic BID [facility] Administration Ofloxacin 2 drop 04/13/19 22:00 04/22/19 13:28 Ocuflox 0.3% Eye Drops - OU 2 drop Q4HWA [facility] Administration Pantoprazole Sodium 40 mg 04/17/19 10:00 04/22/19 09:32 Protonix - PO 40 mg DAILY [facility] Administration Rivaroxaban 20 mg 04/14/19 18:00 04/21/19 18:35 Xarelto PO 20 mg 1800 [facility] Administration Physical Examination Constitutional: Yes: Awake/ chronic ill appearance Eyes: Yes: conjuctiva clear Neck: Yes: WNL, Supple, Trachea Midline Cardiovascular: Yes: Tachycardia, Pulse Irregular, S1, S2 Respiratory: Yes: Diminished, no Rhonchi Gastrointestinal: Yes: soft Breast(s): Yes: Left (Mastectomy) Edema: No Peripheral Pulses WNL: Yes Neurological: Yes: drowsy A/P Abx cultures negative supportive care Pt is DNR and DNI antibiotics for 2days on isolation for ESBL urine family wants another MA Problem List - Problems (1) Atrial fibrillation with RVR Code(s): I48.91 - UNSPECIFIED ATRIAL FIBRILLATION (2) COPD (chronic obstructive pulmonary disease) Code(s): J44.9 - CHRONIC OBSTRUCTIVE PULMONARY DISEASE, UNSPECIFIED (3) Elevated troponin Code(s): R79.89 - OTHER SPECIFIED ABNORMAL FINDINGS OF BLOOD CHEMISTRY (4) Systemic inflammatory response syndrome (SIRS) Code(s): R65.10 - SIRS OF NON-INFECTIOUS ORIGIN W/O ACUTE ORGAN DYSFUNCTION
[2019-04-22] MEDS: RIVAROXABAN 20 MG TABLET PO SCH (17:11)
[2019-04-23] MEDS ORDERED: PT OWN MED DRAWER 7, Y5N ONE ×3 (00:46→10:31)
[2019-04-23] MEDS: CEFTAZIDIME/AVIBACTAM 2.5 GM in DEXTROSE 5%-WATER - 250 ML IVPB SCH ×3 (01:42→18:04)
[2019-04-23] MEDS: clonazePAM 0.5 MG TABLET PO SCH ×3 (05:24→21:02)
[2019-04-23] MEDS: OFLOXACIN 0.3% OPHTHALMIC SOLUTION 5 ML BOTTLE OU SCH ×5 (05:25→21:03)
--- NOTE | 2019-04-23 09:55 | PN ---
Progress Note (short form) - Note Progress Note: Awake but confused. NAD. No fevers recorded. No acute events overnight. Intake & Output 04/20/19 04/21/19 04/22/19 04/23/19 23:59 23:59 23:59 23:59 Intake Total 1140 1290 250 Balance 1140 1290 250 Weight 171 lb 1.6 oz 172 lb 3.2 oz 172 lb 2 oz Last Vital Signs Temp Pulse Resp BP Pulse Ox 97.7 F 81 20 140/85 97 04/23/19 06:00 04/23/19 06:00 04/23/19 09:00 04/23/19 06:00 04/23/19 09:00 Active Medications Acetaminophen (Tylenol -) 650 mg PO Q6H PRN PRN Reason: FEVER Anastrozole (Arimidex -) 1 mg PO DAILY [facility] Last Admin: 04/22/19 09:32 Dose: 1 mg Atorvastatin Calcium (Lipitor -) 10 mg PO HS [facility] Last Admin: 04/22/19 21:02 Dose: 10 mg Clonazepam (Klonopin -) 0.5 mg PO TID [facility] Last Admin: 04/23/19 05:24 Dose: 0.5 mg Divalproex Sodium (Depakote Sprinkle Caps -) 250 mg PO BID [facility] Last Admin: 04/22/19 21:05 Dose: 250 mg Donepezil HCl (Aricept -) 10 mg PO HS [facility] Last Admin: 04/22/19 21:02 Dose: 10 mg Escitalopram Oxalate (Lexapro -) 20 mg PO DAILY [facility] Last Admin: 04/22/19 09:32 Dose: 20 mg Folic Acid (Folic Acid -) 1 mg PO DAILY [facility] Last Admin: 04/22/19 09:33 Dose: 1 mg Furosemide (Lasix -) 20 mg PO DAILY [facility] Last Admin: 04/22/19 09:32 Dose: 20 mg Ceftazidime/Avibactam 2.5 gm/ (Dextrose) 250 mls @ 125 mls/hr IVPB Q8H-IV [facility]; Protocol Last Admin: 04/23/19 01:42 Dose: 125 mls/hr Metoprolol Tartrate (Lopressor -) 75 mg PO BID [facility] Last Admin: 04/22/19 21:01 Dose: 75 mg Miconazole Nitrate (Miconazole Nitrate) 1 applic TP BID [facility] Last Admin: 04/22/19 21:02 Dose: 1 applic Ofloxacin (Ocuflox 0.3% Eye Drops -) 2 drop OU Q4HWA [facility] Last Admin: 04/23/19 05:25 Dose: Not Given Pantoprazole Sodium (Protonix -) 40 mg PO DAILY [facility] Last Admin: 04/22/19 09:32 Dose: 40 mg Rivaroxaban (Xarelto) 20 mg PO 1800 [facility] Last Admin: 04/22/19 17:11 Dose: 20 mg Gen: NAD at rest Heart: RRR Lung: decreased breath sounds at the bases Abd: soft, nontender Ext: no edema A/P UTI Pneumonia Sepsis COPD Atrial Fibrillation CAD +Troponins likely [place] Ischemia LV Diastolic Dysfunction Dementia HTN Hyperlipidemia GERD h/o Breast Ca - Antibiotics per ID - inhaled bronchodilators - rate control - continue anticoagulation - aspiration precautions - DVT prophylaxis Dr Lindquist Problem List - Problems (1) Anxiety and depression Code(s): F41.9 - ANXIETY DISORDER, UNSPECIFIED; F32.9 - MAJOR DEPRESSIVE DISORDER, SINGLE EPISODE, UNSPECIFIED (2) Asthma Code(s): J45.909 - UNSPECIFIED ASTHMA, UNCOMPLICATED (3) COPD (chronic obstructive pulmonary disease) Code(s): J44.9 - CHRONIC OBSTRUCTIVE PULMONARY DISEASE, UNSPECIFIED (4) Elevated troponin Code(s): R79.89 - OTHER SPECIFIED ABNORMAL FINDINGS OF BLOOD CHEMISTRY (5) GERD (gastroesophageal reflux disease) Code(s): K21.9 - GASTRO-ESOPHAGEAL REFLUX DISEASE WITHOUT ESOPHAGITIS (6) History of dysphagia Code(s): Z87.19 - PERSONAL HISTORY OF OTHER DISEASES OF THE DIGESTIVE SYSTEM (7) Acute respiratory failure with hypoxia Code(s): J96.01 - ACUTE RESPIRATORY FAILURE WITH HYPOXIA (8) Atrial fibrillation Code(s): I48.91 - UNSPECIFIED ATRIAL FIBRILLATION Qualifiers: Atrial fibrillation type: persistent (9) Coronary artery disease Code(s): I25.10 - ATHSCL HEART DISEASE OF [place] CORONARY ARTERY W/O ANG PCTRS Qualifiers: Coronary Disease-Associated Artery/Lesion type: [place] artery [place] vs. transplanted heart: [place] heart Associated angina: without angina Qualified Code(s): I25.10 - Atherosclerotic heart disease of [place] coronary artery without angina pectoris (10) Dementia Code(s): F03.90 - UNSPECIFIED DEMENTIA WITHOUT BEHAVIORAL DISTURBANCE Qualifiers: Dementia type: unspecified type Dementia behavioral disturbance: without behavioral disturbance Qualified Code(s): F03.90 - Unspecified dementia without behavioral disturbance (11) Diastolic dysfunction Code(s): I51.9 - HEART DISEASE, UNSPECIFIED (12) Hyperlipidemia Code(s): E78.5 - HYPERLIPIDEMIA, UNSPECIFIED Qualifiers: Hyperlipidemia type: pure hypercholesterolemia Qualified Code(s): E78.00 - Pure hypercholesterolemia, unspecified; E78.0 - Pure hypercholesterolemia (13) Hypoxia Code(s): R09.02 - HYPOXEMIA (14) Pneumonia Code(s): J18.9 - PNEUMONIA, UNSPECIFIED ORGANISM Qualifiers: Pneumonia type: aspiration pneumonia
[2019-04-23] MEDS: METOPROLOL TARTRATE 25 MG TABLET (FP) PO SCH ×2 (10:26→21:02)
[2019-04-23] MEDS: FUROSEMIDE 20 MG TABLET (FP) PO SCH (10:27)
[2019-04-23] MEDS: ESCITALOPRAM OXALATE 20 MG TABLET (FP) PO SCH (10:27)
[2019-04-23] MEDS: FOLIC ACID 1 MG TABLET (FP) PO SCH (10:27)
[2019-04-23] MEDS: PANTOPRAZOLE 40 MG TABLET (FP) PO SCH (10:28)
[2019-04-23] MEDS: DIVALPROEX SODIUM 125 MG SPRINKLE CAPS PO SCH ×2 (10:33→21:02)
[2019-04-23] MEDS: ANASTROZOLE 1 MG TABLET PO SCH (10:34)
--- NOTE | 2019-04-23 11:52 | PN ---
Progress Note, Physician History of Present Illness: stable no new issues - Current Medication List Current Medications: Active Medications Acetaminophen (Tylenol -) 650 mg PO Q6H PRN PRN Reason: FEVER Anastrozole (Arimidex -) 1 mg PO DAILY [facility] Last Admin: 04/23/19 10:34 Dose: 1 mg Atorvastatin Calcium (Lipitor -) 10 mg PO HS [facility] Last Admin: 04/22/19 21:02 Dose: 10 mg Clonazepam (Klonopin -) 0.5 mg PO TID [facility] Last Admin: 04/23/19 05:24 Dose: 0.5 mg Divalproex Sodium (Depakote Sprinkle Caps -) 250 mg PO BID [facility] Last Admin: 04/23/19 10:33 Dose: 250 mg Donepezil HCl (Aricept -) 10 mg PO HS [facility] Last Admin: 04/22/19 21:02 Dose: 10 mg Escitalopram Oxalate (Lexapro -) 20 mg PO DAILY [facility] Last Admin: 04/23/19 10:27 Dose: 20 mg Folic Acid (Folic Acid -) 1 mg PO DAILY [facility] Last Admin: 04/23/19 10:27 Dose: 1 mg Furosemide (Lasix -) 20 mg PO DAILY [facility] Last Admin: 04/23/19 10:27 Dose: 20 mg Ceftazidime/Avibactam 2.5 gm/ (Dextrose) 250 mls @ 125 mls/hr IVPB Q8H-IV [facility]; Protocol Last Admin: 04/23/19 10:35 Dose: 125 mls/hr Metoprolol Tartrate (Lopressor -) 75 mg PO BID [facility] Last Admin: 04/23/19 10:26 Dose: 75 mg Miconazole Nitrate (Miconazole Nitrate) 1 applic TP BID [facility] Last Admin: 04/22/19 21:02 Dose: 1 applic Ofloxacin (Ocuflox 0.3% Eye Drops -) 2 drop OU Q4HWA [facility] Last Admin: 04/23/19 05:25 Dose: Not Given Pantoprazole Sodium (Protonix -) 40 mg PO DAILY [facility] Last Admin: 04/23/19 10:28 Dose: Not Given Rivaroxaban (Xarelto) 20 mg PO 1800 [facility] Last Admin: 04/22/19 17:11 Dose: 20 mg - Objective Vital Signs: Vital Signs Temperature 97.7 F 04/23/19 06:00 Pulse Rate 81 04/23/19 06:00 Respiratory Rate 20 04/23/19 09:00 Blood Pressure 140/85 04/23/19 06:00 O2 Sat by Pulse Oximetry (%) 97 04/23/19 09:00 Constitutional: Yes: No Distress, Calm Cardiovascular: Yes: S1, S2 Respiratory: Yes: Regular, CTA Bilaterally Gastrointestinal: Yes: Normal Bowel Sounds, Soft Musculoskeletal: Yes: WNL Extremities: Yes: WNL Neurological: Yes: Alert, Other Psychiatric: Yes: Alert Labs: CBC, BMP 04/13/19 06:10 04/13/19 06:10 INR, PTT INR 1.69 (0.83-1.09) H 04/08/19 10:55 Assessment/Plan Problem List - Problems (1) Atrial fibrillation with RVR Code(s): I48.91 - UNSPECIFIED ATRIAL FIBRILLATION (2) COPD (chronic obstructive pulmonary disease) Code(s): J44.9 - CHRONIC OBSTRUCTIVE PULMONARY DISEASE, UNSPECIFIED (3) Elevated troponin Code(s): R79.89 - OTHER SPECIFIED ABNORMAL FINDINGS OF BLOOD CHEMISTRY (4) Systemic inflammatory response syndrome (SIRS) Code(s): R65.10 - SIRS OF NON-INFECTIOUS ORIGIN W/O ACUTE ORGAN DYSFUNCTION uti fever plan continue abx will need abx for another 1day
[2019-04-23 12:09] VITALS: BMI 27.7
--- NOTE | 2019-04-23 12:10 | PN ---
Progress Note, [employer]INE [employer]INE[employer] - Note Progress Note: Selected Entries 04/22/19 04/22/19 04/22/19 01:00 02:53 03:23 Breakfast Diet Tolerated Lunch Supper Temperature 98.5 F 98.6 F 98.6 F 04/22/19 04/22/19 04/22/19 05:51 06:00 09:40 Breakfast 100% Diet Tolerated Well Lunch Supper Temperature 98.5 F 98.5 F 04/22/19 04/22/19 04/22/19 09:45 13:06 13:51 Breakfast Diet Tolerated Poor Lunch 25% Supper Temperature 97.9 F 98.7 F 04/22/19 04/22/19 04/22/19 14:00 17:51 21:19 Breakfast Diet Tolerated Refused Lunch Supper 0 Temperature 98.7 F 98.9 F 98.9 F 04/22/19 04/23/19 04/23/19 22:00 02:00 06:00 Breakfast Diet Tolerated Lunch Supper Temperature 97.9 F 98.5 F 97.7 F On dysph chopped/nectar. Ensure pudding/Magic cup. Awake but confused. Intermittent PO acceptance. Seems to be tolerating diet without difficulty.
[2019-04-23] MEDS: MICONAZOLE NITRATE 28 GM TUBE TP SCH ×2 (13:13→21:03)
--- NOTE | 2019-04-23 17:50 | PN ---
Progress Note (short form) - Note Progress Note: Pt seen/ examined comfortable no distress all f/u noted Vital Signs Temp 97.6 F 04/23/19 14:00 Pulse 71 04/23/19 14:00 Resp 20 04/23/19 14:00 BP 136/64 04/23/19 14:00 Pulse Ox 97 04/23/19 09:00 Intake & Output 04/22/19 04/23/19 04/23/19 23:59 11:59 23:59 Intake Total 0 300 Balance 0 300 Weight 172 lb 2 oz Intake: IV 0 0 sl 0 0 IVPB 0 0 Oral 300 Other: Voiding Method Incontinent Incontinent Incontinent # Unmeasured Voids Void 1 1 Bowel Movement No No Body Mass Index (BMI) 27.7 Weight Measurement Method Patient Lift Scale Active Medications Acetaminophen (Tylenol -) 650 mg PO Q6H PRN PRN Reason: FEVER Anastrozole (Arimidex -) 1 mg PO DAILY [facility] Last Admin: 04/23/19 10:34 Dose: 1 mg Atorvastatin Calcium (Lipitor -) 10 mg PO [facility] Last Admin: 04/22/19 21:02 Dose: 10 mg Clonazepam (Klonopin -) 0.5 mg PO TID [facility] Last Admin: 04/23/19 14:22 Dose: Not Given Divalproex Sodium (Depakote Sprinkle Caps -) 250 mg PO BID [facility] Last Admin: 04/23/19 10:33 Dose: 250 mg Donepezil HCl (Aricept -) 10 mg PO HS [facility] Last Admin: 04/22/19 21:02 Dose: 10 mg Escitalopram Oxalate (Lexapro -) 20 mg PO DAILY [facility] Last Admin: 04/23/19 10:27 Dose: 20 mg Folic Acid (Folic Acid -) 1 mg PO DAILY [facility] Last Admin: 04/23/19 10:27 Dose: 1 mg Furosemide (Lasix -) 20 mg PO DAILY [facility] Last Admin: 04/23/19 10:27 Dose: 20 mg Ceftazidime/Avibactam 2.5 gm/ (Dextrose) 250 mls @ 125 mls/hr IVPB Q8H-IV [facility]; Protocol Last Admin: 04/23/19 10:35 Dose: 125 mls/hr Metoprolol Tartrate (Lopressor -) 75 mg PO BID [facility] Last Admin: 04/23/19 10:26 Dose: 75 mg Miconazole Nitrate (Miconazole Nitrate) 1 applic TP BID [facility] Last Admin: 04/23/19 13:13 Dose: Not Given Ofloxacin (Ocuflox 0.3% Eye Drops -) 2 drop OU Q4HWA [facility] Last Admin: 04/23/19 14:31 Dose: Not Given Pantoprazole Sodium (Protonix -) 40 mg PO DAILY [facility] Last Admin: 04/23/19 10:28 Dose: Not Given Rivaroxaban (Xarelto) 20 mg PO 1800 [facility] Last Admin: 04/22/19 17:11 Dose: 20 mg CBC, BMP 04/13/19 06:10 04/13/19 06:10 Physical Examination Constitutional: Yes: Awake/Comfortable. Eyes: Yes: conjuctiva clear Neck: Yes: WNL, Supple, Trachea Midline Cardiovascular: Yes: Tachycardia, Pulse Irregular, S1, S2 Respiratory: Yes: Diminished, no Rhonchi Gastrointestinal: Yes: soft Edema: No Peripheral Pulses WNL: Yes Neurological: Yes: awake A/P Abx cultures negative supportive care Pt is DNR and DNI antibiotics -- LAST Day today on isolation for ESBL urine Anticipate d/c tomorrow Problem List - Problems (1) Acute respiratory failure with hypoxia Code(s): J96.01 - ACUTE RESPIRATORY FAILURE WITH HYPOXIA (2) Atrial fibrillation Code(s): I48.91 - UNSPECIFIED ATRIAL FIBRILLATION Qualifiers: Atrial fibrillation type: persistent (3) Coronary artery disease Code(s): I25.10 - ATHSCL HEART DISEASE OF [place] CORONARY ARTERY W/O ANG PCTRS Qualifiers: Coronary Disease-Associated Artery/Lesion type: [place] artery [place] vs. transplanted heart: [place] heart Associated angina: without angina Qualified Code(s): I25.10 - Atherosclerotic heart disease of [place] coronary artery without angina pectoris (4) [place]and ischemia Code(s): I24.8 - OTHER FORMS OF ACUTE ISCHEMIC HEART DISEASE (5) Pneumonia Code(s): J18.9 - PNEUMONIA, UNSPECIFIED ORGANISM Qualifiers: Pneumonia type: aspiration pneumonia (6) Sepsis Code(s): A41.9 - SEPSIS, UNSPECIFIED ORGANISM Qualifiers: Sepsis type: sepsis due to unspecified organism Qualified Code(s): A41.9 - Sepsis, unspecified organism (7) UTI (urinary tract infection) Code(s): N39.0 - URINARY TRACT INFECTION, SITE NOT SPECIFIED Qualifiers: Urinary tract infection type: site unspecified Hematuria presence: without hematuria Qualified Code(s): N39.0 - Urinary tract infection, site not specified
[2019-04-23] MEDS: RIVAROXABAN 20 MG TABLET PO SCH (18:05)
[2019-04-23] MEDS: ATORVASTATIN CA 10 MG TABLET (FP) PO SCH (21:02)
[2019-04-23] MEDS: DONEPEZIL HCL 10 MG TABLET (FP) PO SCH (21:02)
[2019-04-24] MEDS ORDERED: PT OWN MED DRAWER 7, Y5N ONE ×2 (00:10→09:51)
[2019-04-24] MEDS: CEFTAZIDIME/AVIBACTAM 2.5 GM in DEXTROSE 5%-WATER - 250 ML IVPB SCH ×3 (02:48→14:46)
[2019-04-24] MEDS: OFLOXACIN 0.3% OPHTHALMIC SOLUTION 5 ML BOTTLE OU SCH ×4 (05:32→18:41)
[2019-04-24] MEDS: clonazePAM 0.5 MG TABLET PO SCH ×2 (05:34→14:09)
--- NOTE | 2019-04-24 09:58 | PN ---
Progress Note (short form) - Note Progress Note: Awake but confused. NAD. No fevers recorded. No acute events overnight. Intake & Output 04/21/19 04/22/19 04/23/19 04/24/19 23:59 23:59 23:59 23:59 Intake Total 1290 250 300 250 Balance 1290 250 300 250 Weight 172 lb 3.2 oz 172 lb 2 oz Last Vital Signs Temp Pulse Resp BP Pulse Ox 98.4 F 76 20 138/64 97 04/24/19 02:00 04/24/19 02:00 04/24/19 07:55 04/24/19 02:00 04/24/19 07:55 Active Medications Acetaminophen (Tylenol -) 650 mg PO Q6H PRN PRN Reason: FEVER Anastrozole (Arimidex -) 1 mg PO DAILY [facility] Last Admin: 04/23/19 10:34 Dose: 1 mg Atorvastatin Calcium (Lipitor -) 10 mg PO HS [facility] Last Admin: 04/23/19 21:02 Dose: 10 mg Clonazepam (Klonopin -) 0.5 mg PO TID [facility] Last Admin: 04/24/19 05:34 Dose: 0.5 mg Divalproex Sodium (Depakote Sprinkle Caps -) 250 mg PO BID [facility] Last Admin: 04/23/19 21:02 Dose: 250 mg Donepezil HCl (Aricept -) 10 mg PO HS [facility] Last Admin: 04/23/19 21:02 Dose: 10 mg Escitalopram Oxalate (Lexapro -) 20 mg PO DAILY [facility] Last Admin: 04/23/19 10:27 Dose: 20 mg Folic Acid (Folic Acid -) 1 mg PO DAILY [facility] Last Admin: 04/23/19 10:27 Dose: 1 mg Furosemide (Lasix -) 20 mg PO DAILY [facility] Last Admin: 04/23/19 10:27 Dose: 20 mg Ceftazidime/Avibactam 2.5 gm/ (Dextrose) 250 mls @ 125 mls/hr IVPB Q8H-IV [place]; Protocol Last Admin: 04/24/19 02:48 Dose: 125 mls/hr Metoprolol Tartrate (Lopressor -) 75 mg PO BID [facility] Last Admin: 04/23/19 21:02 Dose: 75 mg Miconazole Nitrate (Miconazole Nitrate) 1 applic TP BID [facility] Last Admin: 04/23/19 21:03 Dose: 1 applic Ofloxacin (Ocuflox 0.3% Eye Drops -) 2 drop OU Q4HWA [facility] Last Admin: 04/24/19 05:32 Dose: Not Given Pantoprazole Sodium (Protonix -) 40 mg PO DAILY [facility] Last Admin: 04/23/19 10:28 Dose: Not Given Rivaroxaban (Xarelto) 20 mg PO 1800 [facility] Last Admin: 04/23/19 18:05 Dose: 20 mg Gen: NAD at rest Heart: RRR Lung: decreased breath sounds at the bases Abd: soft, nontender Ext: no edema A/P UTI Pneumonia Sepsis COPD Atrial Fibrillation CAD +Troponins likely [place] Ischemia LV Diastolic Dysfunction Dementia HTN Hyperlipidemia GERD h/o Breast Ca - Antibiotics per ID - inhaled bronchodilators - rate control - continue anticoagulation - aspiration precautions - DVT prophylaxis Dr Lindquist Problem List - Problems (1) Anxiety and depression Code(s): F41.9 - ANXIETY DISORDER, UNSPECIFIED; F32.9 - MAJOR DEPRESSIVE DISORDER, SINGLE EPISODE, UNSPECIFIED (2) Asthma Code(s): J45.909 - UNSPECIFIED ASTHMA, UNCOMPLICATED (3) COPD (chronic obstructive pulmonary disease) Code(s): J44.9 - CHRONIC OBSTRUCTIVE PULMONARY DISEASE, UNSPECIFIED (4) Elevated troponin Code(s): R79.89 - OTHER SPECIFIED ABNORMAL FINDINGS OF BLOOD CHEMISTRY (5) GERD (gastroesophageal reflux disease) Code(s): K21.9 - GASTRO-ESOPHAGEAL REFLUX DISEASE WITHOUT ESOPHAGITIS (6) History of dysphagia Code(s): Z87.19 - PERSONAL HISTORY OF OTHER DISEASES OF THE DIGESTIVE SYSTEM (7) Acute respiratory failure with hypoxia Code(s): J96.01 - ACUTE RESPIRATORY FAILURE WITH HYPOXIA (8) Atrial fibrillation Code(s): I48.91 - UNSPECIFIED ATRIAL FIBRILLATION Qualifiers: Atrial fibrillation type: persistent (9) Coronary artery disease Code(s): I25.10 - ATHSCL HEART DISEASE OF [place] CORONARY ARTERY W/O ANG PCTRS Qualifiers: Coronary Disease-Associated Artery/Lesion type: [place] artery [place] vs. transplanted heart: [place] heart Associated angina: without angina Qualified Code(s): I25.10 - Atherosclerotic heart disease of [place] coronary artery without angina pectoris (10) Dementia Code(s): F03.90 - UNSPECIFIED DEMENTIA WITHOUT BEHAVIORAL DISTURBANCE Qualifiers: Dementia type: unspecified type Dementia behavioral disturbance: without behavioral disturbance Qualified Code(s): F03.90 - Unspecified dementia without behavioral disturbance (11) Diastolic dysfunction Code(s): I51.9 - HEART DISEASE, UNSPECIFIED (12) Hyperlipidemia Code(s): E78.5 - HYPERLIPIDEMIA, UNSPECIFIED Qualifiers: Hyperlipidemia type: pure hypercholesterolemia Qualified Code(s): E78.00 - Pure hypercholesterolemia, unspecified; E78.0 - Pure hypercholesterolemia (13) Hypoxia Code(s): R09.02 - HYPOXEMIA (14) Pneumonia Code(s): J18.9 - PNEUMONIA, UNSPECIFIED ORGANISM Qualifiers: Pneumonia type: aspiration pneumonia
[2019-04-24] MEDS: METOPROLOL TARTRATE 25 MG TABLET (FP) PO SCH (10:07)
[2019-04-24] MEDS: FOLIC ACID 1 MG TABLET (FP) PO SCH (10:08)
[2019-04-24] MEDS: FUROSEMIDE 20 MG TABLET (FP) PO SCH (10:08)
[2019-04-24] MEDS: DIVALPROEX SODIUM 125 MG SPRINKLE CAPS PO SCH (10:09)
[2019-04-24] MEDS: ESCITALOPRAM OXALATE 20 MG TABLET (FP) PO SCH (10:09)
[2019-04-24] MEDS: PANTOPRAZOLE 40 MG TABLET (FP) PO SCH (10:10)
[2019-04-24] MEDS: ANASTROZOLE 1 MG TABLET PO SCH (10:20)
[2019-04-24] MEDS: MICONAZOLE NITRATE 28 GM TUBE TP SCH ×2 (10:20→14:46)
--- NOTE | 2019-04-24 11:17 | DS ---
Physical Examination Vital Signs: Vital Signs Temperature 98.4 F 04/24/19 10:00 Pulse Rate 86 04/24/19 10:00 Respiratory Rate 20 04/24/19 10:00 Blood Pressure 140/64 04/24/19 10:00 O2 Sat by Pulse Oximetry (%) 97 04/24/19 07:55 Constitutional: Yes: No Distress, Calm Cardiovascular: Yes: Regular Rate and Rhythm Respiratory: Yes: CTA Bilaterally Gastrointestinal: Yes: Normal Bowel Sounds, Soft. No: Tenderness Edema: No Labs: CBC, BMP 04/13/19 06:10 04/13/19 06:10 Discharge Summary Problems reviewed: Yes Reason For Visit: ATRIAL FIBRILLATION/HYPOXIA/SEPSIS/PNEUMONIA Current Active Problems Anxiety and depression (Acute) Asthma (Acute) Atrial fibrillation with RVR (Acute) COPD (chronic obstructive pulmonary disease) (Acute) Conjunctivitis (Acute) Elevated troponin (Acute) GERD (gastroesophageal reflux disease) (Acute) History of dysphagia (Acute) Systemic inflammatory response syndrome (SIRS) (Acute) Hospital Course: Admitting History and Physical - Primary Care Physician PCP: Sasha Paniagua ([facility]) - Admission Chief Complaint: Fever, Bloody Sputum History of Present Illness: This is a 78 y/o woman from [facility] with a PMHx of Dementia, Dysphagia, COPD , Asthma, Pneumonia, Diastolic CHF, ASHD, Afib (on Xarelto), Angina, HTN, HLD, GERD, Breast Ca s/p L- Mastectomy, Anxiety, UTI, Insomnia. Who presents to the ED with fever, and bloody sputum. Patient has Dementia and is unable to provide HPI. Patient's daughter Nadege was at bedside. Per the ED records: Patient arrived hypoxic to 80s with tachycardia and fever. Sepsis workup initiated and patient was placed on BiPap. Patient is alert only to self and says she wants to go home. Unable to obtain further PMH from patient 2/2 clinical status. [facility] records indicate patient was febrile to 101F with tachypnea to 20, normotensive. Concerned about fever and bloody sputum per records. Called patient's healthcare surrogate Ilana Wills who is her daughter. Per daughter, patient was seen by another daughter yesterday, was mildly congested but otherwise doing well. Has Alzheimer's dementia and is only alert to self at baseline. Confirmed DNR/DNI status, [facility] records only indicate DNR. HOSPITAL COURSE was evaluated by ID and pulmonary, cardiology Found to have elevated troponins -- demand ischemia due to sepsis On Iv antibiotics Blood cultures negative urine culture-- positive Ecoli ESBL CXR -- right infiltrate or atelectasis repeat-- no infiltrates Pt more awake Labs better Normal WBC afebrile pt completed iv antibiotics stable for dc to NH she is DNR/DNI Condition: Stable - Instructions Referrals: Alexander Urban [Primary Care Provider] - Disposition: ASSISTED FACILITY - Home Medications Comprehensive Discharge Medication List: Ambulatory Orders Anastrozole [Arimidex -] 1 mg PO DAILY 07/09/17 Atorvastatin Ca [Lipitor] 10 mg PO HS 07/09/17 Clonazepam 0.5 mg PO TID 07/09/17 Divalproex [Depakote -] 250 mg PO BID 07/09/17 Donepezil HCl 10 mg PO HS 07/09/17 Escitalopram Oxalate [Lexapro -] 20 mg PO DAILY 07/09/17 Folic Acid 1 mg PO DAILY 07/09/17 Furosemide 20 mg PO DAILY 07/09/17 Isosorbide Mononitrate [Isosorbide Mononitrate ER] 30 mg PO DAILY 07/09/17 Loratadine 10 mg PO DAILY 07/09/17 Multivitamin [Poly-Vitamin] 1 each PO DAILY 07/09/17 Omeprazole 20 mg PO AC 07/09/17 Polyethylene Glycol 3350 [Clearlax] 17 gm PO DAILY 07/09/17 Rivaroxaban [Xarelto -] 20 mg PO 1800 07/09/17 Acetaminophen 650 mg PO Q8H PRN 07/10/17 Albuterol 2.5/Ipratropium 0.5 [Duoneb -] 1 amp NEB Q6H #1 amp 11/15/18 Lisinopril [Prinivil] 5 mg PO BID #60 tablet 11/15/18 Metoprolol Tartrate [Lopressor -] 75 mg PO BID #60 tablet 11/15/18 Ascorbate Calcium [Vitamin C] 500 mg PO BID 04/08/19 Miconazole Nitrate [Miconazole Nitrate -] 1 applic TP BID 04/08/19
--- NOTE | 2019-04-24 11:44 | PN ---
Progress Note, Physician - Current Medication List Current Medications: Active Medications Acetaminophen (Tylenol -) 650 mg PO Q6H PRN PRN Reason: FEVER Anastrozole (Arimidex -) 1 mg PO DAILY [facility] Last Admin: 04/24/19 10:20 Dose: 1 mg Atorvastatin Calcium (Lipitor -) 10 mg PO HS [facility] Last Admin: 04/23/19 21:02 Dose: 10 mg Clonazepam (Klonopin -) 0.5 mg PO TID [facility] Last Admin: 04/24/19 05:34 Dose: 0.5 mg Divalproex Sodium (Depakote Sprinkle Caps -) 250 mg PO BID [facility] Last Admin: 04/24/19 10:09 Dose: 250 mg Donepezil HCl (Aricept -) 10 mg PO HS [facility] Last Admin: 04/23/19 21:02 Dose: 10 mg Escitalopram Oxalate (Lexapro -) 20 mg PO DAILY [facility] Last Admin: 04/24/19 10:09 Dose: 20 mg Folic Acid (Folic Acid -) 1 mg PO DAILY [facility] Last Admin: 04/24/19 10:08 Dose: 1 mg Furosemide (Lasix -) 20 mg PO DAILY [facility] Last Admin: 04/24/19 10:08 Dose: 20 mg Metoprolol Tartrate (Lopressor -) 75 mg PO BID [facility] Last Admin: 04/24/19 10:07 Dose: 75 mg Miconazole Nitrate (Miconazole Nitrate) 1 applic TP BID [facility] Last Admin: 04/24/19 10:20 Dose: Not Given Ofloxacin (Ocuflox 0.3% Eye Drops -) 2 drop OU Q4HWA [facility] Last Admin: 04/24/19 10:10 Dose: Not Given Pantoprazole Sodium (Protonix -) 40 mg PO DAILY [facility] Last Admin: 04/24/19 10:10 Dose: Not Given Rivaroxaban (Xarelto) 20 mg PO 1800 [facility] Last Admin: 04/23/19 18:05 Dose: 20 mg - Objective Vital Signs: Vital Signs Temperature 98.4 F 04/24/19 10:00 Pulse Rate 86 04/24/19 10:00 Respiratory Rate 20 04/24/19 10:00 Blood Pressure 140/64 04/24/19 10:00 O2 Sat by Pulse Oximetry (%) 97 04/24/19 07:55 Labs: CBC, BMP 04/13/19 06:10 04/13/19 06:10 INR, PTT INR 1.69 (0.83-1.09) H 04/08/19 10:55
[2019-04-24 15:08] VITALS: BP 101/49; PULSE 94; TEMP 98.6
[2019-04-24] MEDS: RIVAROXABAN 20 MG TABLET PO SCH (18:42)
== END 2019-04-24 20:05 | DRG 871 ==
LOC: JER 10:14 → JERBED 12:51 → J4W 04-09 17:04 → J7W 04-13 18:33
PROVIDERS: ADMIT Internal Medicine; ATTEND Internal Medicine
DX: A41.9 Sepsis, unspecified organism (principal); J18.9 Pneumonia, unspecified organism; J96.01 Acute respiratory failure with hypoxia; J98.11 Atelectasis; I24.8 Other forms of acute ischemic heart disease; I50.30 Unspecified diastolic (congestive) heart failure; E87.2 Acidosis; N39.0 Urinary tract infection, site not specified; I11.0 Hypertensive heart disease with heart failure; I25.10 Atherosclerotic heart disease of native coronary artery without angina pectoris; E78.5 Hyperlipidemia, unspecified; I48.91 Unspecified atrial fibrillation; R00.0 Tachycardia, unspecified; G30.9 Alzheimer's disease, unspecified; F32.9 Major depressive disorder, single episode, unspecified; K21.9 Gastro-esophageal reflux disease without esophagitis; F41.8 Other specified anxiety disorders; H10.9 Unspecified conjunctivitis; Z66 Do not resuscitate; R79.89 Other specified abnormal findings of blood chemistry; R13.10 Dysphagia, unspecified; G47.00 Insomnia, unspecified; S60.511A Abrasion of right hand, initial encounter; Z85.3 Personal history of malignant neoplasm of breast; B96.20 Unspecified Escherichia coli [E. coli] as the cause of diseases classified elsewhere
CPT/HCPCS: 36415; 36600; 70450-TC; 71045-TC-FY; 80053; 81003; 82803; 83605; 83880; 84484; 85025; 85027; 85610; 85730; 87040; 87086; 87186; 87804; 93005; 93010; 94640; 94660; 97116-GP; 97161-GP; 99285-25; J0131

== ENCOUNTER 2019-06-06 23:13 | Inpatient (IN) | payer OTHER ==
--- NOTE | 2019-06-06 23:35 | PDOC ---
Attending Attestation - Resident Resident Name: Floresita Estrada - ED Attending Attestation I have performed the following: I have examined & evaluated the patient, The case was reviewed & discussed with the resident, I agree w/resident's findings & plan - HPI HPI: 06/06/19 23:30 see resident hpi - Physicial Exam PE: 06/06/19 23:31 agree with resident exam - Medical Decision Making 06/06/19 23:31 78-year-old female brought in for acute respiratory distress and hypoxemia, intubated in the field by paramedics due to rapid decline in oxygenation status to saturation of 60% Exam/history consistent with CHF exacerbation/bronchospasm, Though on arrival patient was found to be febrile, sepsis work-up added on as well Plan for admission to ICU service Patient will be reevaluated in regards to blood pressure prior to administering diuretics, she has received rocuronium, etomidate, fentanyl and nitroglycerin sublingual x5 in the field According to EMS they were not advised that patient is possibly a DNR which is noted in her paperwork This will be followed up with family if possible from the emergency department and will be conveyed to the admitting team 06/06/19 23:33
[2019-06-06] MEDS ORDERED: fentaNYL CITRATE 250 MCG/5 ML VIAL ONE (23:41)
[2019-06-06] MEDS: FENTANYL INJECTION 500 MCG in DEXTROSE 5%-WATER - 90 ML IVPB SCH (23:50)
[2019-06-06 23:58] LABS: BASO % 0.5 % (0-2.0); EOS % 0.3 % (0-4.5); HEMATOCRIT 34.4 % (32.4-45.2); HEMOGLOBIN 11.5 GM/dL (10.7-15.3); LYMPH % 8.7 % (8-40); MCH 32.4 pg (25.7-33.7); MCHC 33.5 g/dl (32.0-36.0); MEAN CELL VOLUME 96.6 fl (80-96); MONO % 3.6 % (3.8-10.2); NEUT % 86.9 % (42.8-82.8); PLATELET COUNT 244 K/MM3 (134-434); RBC 3.56 M/mm3 (3.60-5.2); RDW 15.7 % (11.6-15.6); WHITE BLOOD COUNT 7.7 K/mm3 (4.0-10.0)
[2019-06-06 23:59] LABS: ARTERIAL BLD GAS O2 SATURATION 89.3 % (95-98); ARTERIAL BLOOD GAS PCO2 60.7 mmHg (35-45); ARTERIAL BLOOD GAS PO2 70.5 mmHg (80-100); ARTERIAL BLOOD GAS pH 7.25 (7.35-7.45); CARBOXYHEMOGLOBIN 0.8 % (0-2)
[2019-06-07] MEDS ORDERED: VANCOMYCIN 1,000 MG in DEXTROSE 5%-WATER - 250 ML IVPB ONE
[2019-06-07] MEDS ORDERED: PIPERACILLIN/TAZOB 3.375 GM 4.5 GM in DEXTROSE 5%-WATER - 50 ML IVPB ONE
[2019-06-07 00:01] LABS: ALLENS TEST POSITIVE
[2019-06-07] MEDS ORDERED: AZITHROMYCIN IVPB 500 MG in DEXTROSE 5%-WATER - 250 ML IVPB ONE (00:02)
--- NOTE | 2019-06-07 00:17 | PDOC ---
History of Present Illness - General Chief Complaint: Respiratory Stated Complaint: RESPIRATORY DISTRESS Time Seen by Provider: 06/06/19 23:23 History Source: EMS, Group Home Records Exam Limitations: Clinical Condition - History of Present Illness Initial Comments: Pt is a 78 yo F, with PMH of HTN, AFib (on Xarelto), CAD, breast CA, CHF, COPD, GERD, dementia, dysphagia, and prior admissions for pneumonia and urosepsis, who is presenting via EMS from [facility]. Per EMS reports, pt began having difficulty breathing around 4 pm today. Pt was provided duoneb treatments with minimal relief, and became hypertensive (systolic >200) and tachycardic, prompting call to EMS. Upon EMS arrival, pt was found O2 saturation in 80%s, EMS attempted CPAP and multiple doses of SL NG, but pt desaturated to 70%s on CPAP. Despite prior DNR/DNI paperwork filed at [facility] in the past, [facility] had paperwork signed by family that indicated DNR only, prompting EMS to intubate in the field (etomidate, rocuronium, and post- sedation with fentanyl). Pt is currently intubated and cannot provide any relevant ROS. Allergies: NKDA PCP: Dr. Paniagua/[facility] Social: No cigarette, alcohol, or drug use. No recent travel or sick contacts. Surgical: no relevant history. Family: no relevant history. PT HAS DOCUMENTED DNR; FAMILY DISCUSSING DNI at this time and will talk with ICU staff regarding withdrawal of treatment. 06/07/19 04:13 Past History - Travel Traveled outside of the country in the last 30 days: No Close contact w/someone who was outside of country & ill: No - Past Medical History Allergies/Adverse Reactions: Allergies Allergy/AdvReac Type Severity Reaction Status Date / Time No Known Allergies Allergy Verified 06/07/19 00:16 Home Medications: Ambulatory Orders Anastrozole [Arimidex -] 1 mg PO DAILY 07/09/17 Atorvastatin Ca [Lipitor] 20 mg PO HS 07/09/17 Clonazepam 0.5 mg PO TID 07/09/17 Divalproex [Depakote -] 250 mg PO BID 07/09/17 Donepezil HCl 10 mg PO HS 07/09/17 Escitalopram Oxalate [Lexapro -] 30 mg PO DAILY 07/09/17 Folic Acid 1 mg PO DAILY 07/09/17 Furosemide 20 mg PO DAILY 07/09/17 Isosorbide Mononitrate [Isosorbide Mononitrate ER] 30 mg PO DAILY 07/09/17 Loratadine 10 mg PO DAILY 07/09/17 Multivitamin [Poly-Vitamin] 1 each PO DAILY 07/09/17 Omeprazole 20 mg PO DAILY 07/09/17 Polyethylene Glycol 3350 [Clearlax] 17 gm PO DAILY 07/09/17 Rivaroxaban [Xarelto -] 20 mg PO 1800 07/09/17 Acetaminophen 650 mg PO Q8H PRN 07/10/17 Lisinopril [Prinivil] 5 mg PO BID #60 tablet 11/15/18 Metoprolol Tartrate [Lopressor -] 75 mg PO BID #60 tablet 11/15/18 Ascorbate Calcium [Vitamin C] 500 mg PO BID 04/08/19 Miconazole Nitrate [Miconazole Nitrate -] 1 applic TP BID 04/08/19 Albuterol 2.5/Ipratropium 0.5 [Duoneb -] 1 amp NEB Q8H 06/07/19 Asthma: Yes Cancer: Yes (Breast cancer, nose CA) Cardiac Disorders: Yes (CAD, CHF,AFIB) COPD: Yes CHF: Yes Dementia: Yes (Alzheimer's disease) GI Disorders: Yes (GERD) HTN: Yes Hypercholesterolemia: Yes Psychiatric Problems: Yes (anxiety, MDD) Other medical history: PNEUMONIA - Surgical History Appendectomy: Yes (age 4) - Psycho Social/Smoking Cessation Hx Smoking History: Former smoker Have you smoked in the past 12 months: No Information on smoking cessation initiated: No Hx Alcohol Use: No Drug/Substance Use Hx: No Substance Use Type: None Hx Substance Use Treatment: No Respiratory Specific PMHX - Complaint Specific PMHX Hx Airway Support: No Hx Intubation: No Hx Asthma: Yes (COPD) Hx Smoking Exposure: No Hx Vaping: No Hx Allergic Rhinitis: No Hx Exposure to Respiratory Irritants: No Hx Bronchitis: No Hx Pneumonia: Yes Hx Pulmonary Embolus: No Hx TB (Tuberculosis): No Review of Systems - Review of Systems Able to Perform ROS?: No (intubated) *Physical Exam - Vital Signs Last Vital Signs Temp Pulse Resp BP Pulse Ox 102.1 F H 112 H 20 116/66 96 06/06/19 23:15 06/06/19 23:15 06/06/19 23:15 06/06/19 23:15 06/06/19 23:15 - Physical Exam Tachycardic to 120s (Afib RVR), BP and O2 saturation stable, pt febrile to 102.7 rectal. Pt brought to ER intubated by EMS; thin body habitus. Pt intubated and sedated, cannot perform neuro exam at this time. Head normocephalic, atraumatic. Eyes PERRLA, EOMI. Oropharynx without erythema or exudates, no LAD b/l. ET tube in place. +Dry nasal congestion. Clear heart sounds, S1/S2, no JVD, b/l pedal edema, or heart murmur. +b/l coarse lung sounds with audible crackles. B/l breath sounds intact. No abdominal or CVA tenderness to palpation, no rebound, no guarding. Abdomen soft, non-distended, and with normoactive bowel sounds. Skin without jaundice or rash. No pressure ulcers noted. 06/07/19 04:18 ED Treatment Course - LABORATORY CBC & Chemistry Diagram: 06/06/19 23:20 06/06/19 23:20 - ADDITIONAL ORDERS Additional order review: Laboratory Results 06/06/19 23:40 Anticoagulation Therapy No Result Required. Puncture Site Right radial ABG pH 7.25 L ABG pCO2 at Pt Temp 60.7 H ABG pO2 at Pt Temp 70.5 L ABG HCO3 26.0 ABG O2 Sat (Measured) 89.3 L ABG O2 Content 17.3 ABG Base Excess -2.0 Michael Test Positive Carboxyhemoglobin 0.8 Methemoglobin < 1.0 O2 Delivery Device Vent Oxygen Flow Rate Yes Vent Mode A/c Vent Rate 16 Mechanical Rate No Result Required. PEEP 5.0 Pressure Support Vent 450 06/06/19 23:20 RBC 3.56 L MCV 96.6 H MCHC 33.5 RDW 15.7 H MPV 9.0 Neutrophils % 86.9 H D Lymphocytes % 8.7 D Monocytes % 3.6 L Eosinophils % 0.3 D Basophils % 0.5 - RADIOLOGY Radiology Studies Ordered: Category Date Time Status CHEST X-RAY PORTABLE* [RAD] Stat Radiology 06/06/19 23:24 Ordered Medical Decision Making - Critical Care Time Total Critical Care Time (minutes): 60 Critical Care Statement: The care of this patient involved high complexity decision making to prevent further life threatening deterioration of the patient 's condition and/or to evaluate & treat vital organ system(s) failure or risk of failure. - Medical Decision Making Pt was seen at bedside, also will be seen by attending Dr. Smith. Pt presenting with respiratory failure, intubated in the field. Pt stable on ventilator. Pt febrile, initiating sepsis work-up, evaluate for pneumonia ( aspiration, HAP), influenza, pleural effusions, ACS, CHF or COPD exacerbations. Provided fentanyl drip for sedation. Pt febrile, chest x-ray showed increased infiltrate (likely aspiration), initiated vanc, zosyn, azithromycin ECG: Afib with RVR (HR 110, QRS 92, QTC 495). No TWIs or significant ST segment changes. No significant changes from prior ECG (04/08/2019). 06/07/19 04:27 CBC generally WNL CMP generally unchanged from prior (mild elevations in Bun/Cr) Lactic 3.5 -- providing abx and 1 L IV NS Influenza negative UA without significant signs of UTI Pt admitted to ICU and hospitalist team (Dr. Friedman). Family does not wish to have NGT placed at this time, will continue to discuss withdrawing intubation and DNR/DNI with ICU team. Pt fentanyl drip increased to 40 mcg/hr, as pts BP increasing and she began to fight ET tube. Pt hemodynamically stable for ICU transport. 06/07/19 04:36 Discharge - Discharge Information Problems reviewed: Yes Clinical Impression/Diagnosis: Endotracheally intubated Respiratory failure Qualifiers: Chronicity: acute on chronic Respiratory failure complication: hypoxia and hypercapnia Qualified Code(s): J96.21 - Acute and chronic respiratory failure with hypoxia; J96.22 - Acute and chronic respiratory failure with hypercapnia Aspiration pneumonia Qualifiers: Aspiration pneumonia type: unspecified Laterality: right Lung location: middle lobe of lung Qualified Code(s): J69.0 - Pneumonitis due to inhalation of food and vomit Condition: Guarded - Admission Yes - Follow up/Referral - Patient Discharge Instructions - Post Discharge Activity
[2019-06-07] MEDS ORDERED: ACETAMINOPHEN 1000 MG/100 ML VIAL (NON FORMULARY) IVPB ONE (00:24)
--- NOTE | 2019-06-07 00:24 | CONSULT ---
Consultation: REQUESTING PROVIDER: CONSULT REQUEST: We have been asked to medically evaluate this patient for (specify). HISTORY OF PRESENT ILLNESS: Patient is sedated and intubated, and therefore unable to provide any history. This is a 78 year old female with PMH significant for Alzheimer's dementia, COPD , Asthma, HF PrEF, Afib (on Xarelto), HTN, HLD, Breast Ca s/p L- Mastectomy, most recently admitted at [facility] 04/11-04/24 for sepsis 2/2 UTI. She was brought to the ER by EMS after she was found to be in acute hypoxic respiratory failure , 2/2 suspected aspiration pneumonia/CHF exacerbation with oxygen saturation in the 60s, and was subsequently intubated by EMS (patient is DNR/DNI, however as per EMS they were not made aware of her code status). She has received rocuronium, etomidate, fentanyl and nitroglycerin sublingual x5 in the field. REVIEW OF SYSTEMS: Unable to perform review of systems since patient is intubated and sedated PHYSICAL EXAMINATION Vital Signs - 24 hr 06/06/19 23:15 Temperature 102.1 F H Pulse Rate 112 H Respiratory 22 H Rate Blood Pressure 116/66 O2 Sat by Pulse 96 Oximetry (%) GENERAL: Sedated, intubated HEAD: Normal with no signs of trauma. EYES: DANAE EARS, NOSE, THROAT: Dry mucus membranes LUNGS: Coarse crackles B/L HEART: RRR, no murmurs ABDOMEN: Soft, nontender, not distended LOWER EXTREMITIES: Warm, no edema NEUROLOGICAL: Sedated and intubated SKIN: Dry Laboratory Results - last 24 hr 06/06/19 06/06/19 23:20 23:40 WBC 7.7 RBC 3.56 L Hgb 11.5 Hct 34.4 MCV 96.6 H MCH 32.4 MCHC 33.5 RDW 15.7 H Plt Count 244 MPV 9.0 Absolute Neuts (auto) 6.7 Neutrophils % 86.9 H D Lymphocytes % 8.7 D Monocytes % 3.6 L Eosinophils % 0.3 D Basophils % 0.5 Nucleated RBC % 0 Anticoagulation Therapy No Result Required. Puncture Site Right radial ABG pH 7.25 L ABG pCO2 at Pt Temp 60.7 H ABG pO2 at Pt Temp 70.5 L ABG HCO3 26.0 ABG O2 Sat (Measured) 89.3 L ABG O2 Content 17.3 ABG Base Excess -2.0 Michael Test Positive Carboxyhemoglobin 0.8 Methemoglobin < 1.0 O2 Delivery Device Vent Oxygen Flow Rate Yes Vent Mode A/c Vent Rate 16 Mechanical Rate No Result Required. PEEP 5.0 Pressure Support Vent 450 Active Medications Generic Name Dose Route Start Last Admin Trade Name Jamesq PRN Reason Stop Dose Admin Fentanyl 500 mcg/ Dextrose 100 mls @ 5 mls/hr 06/06/19 23:30 06/06/19 23:50 IVPB 25 mcg/hr TITR CLAYTON 5 mls/hr Administration 25 MCG/HR Azithromycin 500 mg/ Dextrose 250 mls @ 250 mls/hr 06/07/19 00:02 IVPB 06/07/19 01:01 ONCE ONE Vancomycin HCl 1,000 mg/ 250 mls @ 166.667 mls/hr 06/07/19 00:00 Dextrose IVPB 06/07/19 01:29 ONCE ONE Protocol Piperacillin Sod/Tazobactam 50 mls @ 100 mls/hr 06/07/19 00:00 Sod 4.5 gm/ Dextrose IVPB 06/07/19 00:29 ONCE ONE Protocol ASSESSMENT/PLAN: 78F with PMH of Alzheimer's dementia, COPD, Asthma, HF PrEF, Afib (on Xarelto), HTN, HLD, Breast Ca s/p L- Mastectomy, admitted at [facility] 04/11-04/24 for sepsis 2 /2 UTI. BIBEMS for acute hypoxic respiratory failure, 2/2 suspected aspiration pneumonia/CHF exacerbation, intubated in the field. Admitted 06/07. #BUGGYMAN - Intubated, sedated for acute hypoxic respiratory failure, 2/2 suspected aspiration pneumonia/CHF exacerbation - Sedated on Fentanyl - Demented at baseline - Hx of Alzheimer's, on Donepezil at home #CVS - Hx of HF PrEF, on Lasix 20mg at home - Hx of HTN, on Lopressor 75mg, Lisinopril 5mg, Isosorbide mononitrate 30mg, - Hx of AFib, on Xarelto at home #Respiratory - acute hypoxic respiratory failure, 2/2 suspected aspiration pneumonia/CHF exacerbation - CXR: Rt sided infiltrate, pending official report - ABG: pH 7.25, pCO2 60.7, pO2 70.5, HCO3 26.0 - Carboxyhemoglobin 0.8, Methemoglobin <0.1 #Renal - Cr 1.2 (baseline over the past year seems to be 0.6-0.9), Gfr 43 - UA: Protein +1 #ID - Aspiration pneumonia with acute hypoxic respiratory failure - WBC 7.7 - LA 3.5, administering 1L bolus N/S - Started on Vanc/Zosyn - Sputum, blood, urine cx ordered #Heme - Hg 11.5 - PT with INR 15.5 #FEN - N/S 1 + 0.5L bolus given - NPO #Prophylaxis - Heparin 5000 SQ #Dispo - DNR/DNI - ICU monitoring - We will continue to follow the patient. Thank you for this consultative opportunity. Visit type - Emergency Visit Emergency Visit: Yes ED Registration Date: 06/07/19 Care time: The patient presented to the Emergency Department on the above date and was hospitalized for further evaluation of their emergent condition. - New Patient This patient is new to me today: Yes Date on this admission: 07/04/19 - Critical Care Critical Care patient: No ATTENDING PHYSICIAN STATEMENT I saw and evaluated the patient. I reviewed the resident's note and discussed the case with the resident. I agree with the resident's findings and plan as documented. SUBJECTIVE: OBJECTIVE: ASSESSMENT AND PLAN:
[2019-06-07 00:36] LABS: INR 1.31 (0.83-1.09); PROTHROMBIN TIME (PATIENT) 15.5 SEC (9.7-13.0)
[2019-06-07 00:37] LABS: ALK PHOS 109 U/L (45-117); ANION GAP 8 MMOL/L (8-16); BILIRUBIN,TOTAL 0.6 mg/dL (0.2-1); BLOOD UREA NITROGEN 30.9 mg/dL (7-18); CALCIUM 8.4 mg/dL (8.5-10.1); CHLORIDE 103 mmol/L (98-107); CO2 28 mmol/L (21-32); CREATININE 1.2 mg/dL (0.55-1.3); GLUCOSE,RANDOM 205 mg/dL (74-106); POTASSIUM 4.1 mmol/L (3.5-5.1); SGOT/AST 30 U/L (15-37); SGPT/ALT 29 U/L (13-61); SODIUM 139 mmol/L (136-145)
[2019-06-07 00:38] LABS: ACTIVATED PTT 33.3 SECONDS (25.2-36.5)
[2019-06-07] MEDS ORDERED: SODIUM CHLORIDE 1,000 ML IV STA (00:46)
[2019-06-07 00:47] LABS: EPI CELLS >36 /HPF (0-5/HPF); HYALINE CASTS 111 /lpf (0-8); URINE APPEARANCE CLOUDY; URINE BILIRUBIN NEGATIVE (NEGATIVE); URINE COLOR YELLOW; URINE GLUCOSE (UA) NEGATIVE (NEGATIVE); URINE KETONE NEGATIVE (NEGATIVE); URINE LEUK ESTERASE TRACE (NEGATIVE); URINE NITRITE NEGATIVE (NEGATIVE); URINE PROTEIN 1+ (NEGATIVE); URINE RBC 2 /hpf (0-4); URINE UROBILINOGEN 0.2 mg/dL (0.2-1.0); URINE WBC 56 /hpf (0-5)
[2019-06-07 01:33] LABS: URINE BACTERIA 9 /hpf (NEGATIVE); URINE CRYSTALS AMORPHOUS URATES /hpf
[2019-06-07] MEDS ORDERED: PIPERACILLIN/TAZOB 4.5 GM 4.5 GM/100 ML BAG IVPB ONE (01:34)
[2019-06-07] MEDS ORDERED: ACETAMINOPHEN INJECTION 100 ML IVPB ONE (01:34)
[2019-06-07] MEDS ORDERED: PROPOFOL 1,000,000 MCG/100 ML VIAL ONE (02:05)
--- NOTE | 2019-06-07 02:07 | PN ---
Teaching Attending Note Name of Resident: Sariah Givens ATTENDING PHYSICIAN STATEMENT I saw and evaluated the patient. I reviewed the resident's note and discussed the case with the resident. I agree with the resident's findings and plan as documented. SUBJECTIVE: 78 y/o woman from [facility] with a PMHx of Dementia, Dysphagia, COPD/Asthma, Diastolic CHF, ASHD, Afib (on Xarelto), HTN, HLD, GERD, Breast Ca s/p L- Mastectomy, Br[place] [facility] [place] hospital after she was thought to have aspirated and went into respiratory distress. EMS was summoned and proceeded with intubating her.In the emergency room she was found to have a high fever and was tachycardic and tachypneic. Was intubated for respiratory failure. OBJECTIVE: Last Vital Signs Temp Pulse Resp BP Pulse Ox 102.1 F H 138 H 26 H 150/116 H 97 06/06/19 23:15 06/07/19 01:15 06/07/19 01:15 06/07/19 01:15 06/07/19 01:15 GENERAL: Sedated, nonverbal, not in acute distress HEENT: Normocephalic, atraumatic. PERRLA, EOMI. No conjunctival pallor. Sclera are non- icteric. Moist mucous membranes. Oropharynx is clear. NECK: Supple. Full ROM. No JVD. Carotid pulses 2+ and symmetric, without bruits. No thyromegaly. No lymphadenopathy. CARDIOVASCULAR: Regular rate and rhythm. No murmurs, rubs, or gallops. Distal pulses are 2+ and symmetric. PULMONARY: No evidence of respiratory distress. Lungs clear to auscultation bilaterally. No wheezing, rales or rhonchi. ABDOMINAL: Soft. Non-tender. Non-distended. No rebound or guarding. No organomegaly. Normoactive bowel sounds. MUSCULOSKELETAL Normal range of motion at all joints. No bony deformities or tenderness. No CVA tenderness. EXTREMITIES: No cyanosis. No clubbing. No edema. No calf tenderness. SKIN: Warm and dry. Normal capillary refill. No rashes. No jaundice. NEUROLOGICAL: Sedated, nonverbal PSYCHIATRIC: Cooperative. Good eye contact. Appropriate mood and affect. Abnormal Lab Results 06/06/19 06/06/19 06/06/19 23:20 23:20 23:20 RBC 3.56 L MCV 96.6 H RDW 15.7 H Neutrophils % 86.9 H D Monocytes % 3.6 L PT with INR 15.50 H INR 1.31 H ABG pH ABG pCO2 at Pt Temp ABG pO2 at Pt Temp ABG O2 Sat (Measured) BUN 30.9 H Random Glucose 205 H Lactic Acid Calcium 8.4 L Albumin 3.0 L Urine Protein 06/06/19 06/06/19 06/06/19 23:20 23:40 23:50 RBC MCV RDW Neutrophils % Monocytes % PT with INR INR ABG pH 7.25 L ABG pCO2 at Pt Temp 60.7 H ABG pO2 at Pt Temp 70.5 L ABG O2 Sat (Measured) 89.3 L BUN Random Glucose Lactic Acid 3.5 H* Calcium Albumin Urine Protein 1+ H Imaging studies reviewed ASSESSMENT AND PLAN: 78-year-old [place] [facility] woman with hypercapnic, hypoxic respiratory failure status post intubation, septic shock secondary to aspiration pneumonia versus community-acquired pneumonia with high lactic acidosis. ABG noted to have respiratory acidosis with CO2 retention, hypoxia.Uncontrolled hyperglycemia. Hypoalbuminemia. Admit to ICU Vancomycin and Zosyn empirically Blood cultures Tracheal aspirate culture UA and urine culture Urine Legionella antigen IV fluid challenge Patient was noted to be DNR/DNI, however intubated prior to arrival to hospital Continue mechanical ventilation Adjust ventilator settings as per ABG Check electrolytes including magnesium and phosphate and replete PRN Repeat lactic acid and ABG NovoLog sliding scale A1c Discussed with family with goals of care are at this point
[2019-06-07] MEDS ORDERED: PROPOFOL 1,000,000 MCG/100 ML VIAL IVPB SCH (02:15)
[2019-06-07] MEDS ORDERED: SODIUM CHLORIDE 500 ML IV STA ×3 (03:08→21:07)
--- NOTE | 2019-06-07 03:11 | HP ---
PCP: Dr. Paniagua HISTORY OF PRESENT ILLNESS: Patient is sedated and intubated, and therefore unable to provide any history. This is a 78 year old female from [employer] [facility] [employer] with a PMHx significant for Alzheimer's dementia, COPD, Asthma, HFpEF, Afib (on Xarelto), HTN, HLD, Breast Ca s/p L- Mastectomy, most recently admitted at [facility] 04/11-04/24 for sepsis 2/2 ESBL UTI. She was brought to the ER by EMS after she was found to be in respiratory distress. She had a SpO2 of 60% and subsequently was intubated by EMS team. Patient has documented DNR/DNI however as per EMS team, they were unaware of this. She received rocuronium, etomidate, fentanyl and nitroglycerin sublingual x5 in the field for induction and hypertensive urgency. Pt was found to be febrile with a temp of 102.5 rectal in ED. ER course was notable for: (1)IV NS 1L bolus, Lactate- 3.4 (2)CXR- b/l patchy infiltrates worse on Right side (3) EKG AF with RVR 110bpm, QTc 495 Allergies No Known Allergies Allergy (Verified 06/07/19 00:16) HOME MEDICATIONS: Home Medications Medication Instructions Recorded Anastrozole [Arimidex -] 1 mg PO DAILY 07/09/17 Atorvastatin Ca [Lipitor] 20 mg PO HS 07/09/17 Clonazepam 0.5 mg PO TID 07/09/17 Divalproex [Depakote -] 250 mg PO BID 07/09/17 Donepezil HCl 10 mg PO HS 07/09/17 Escitalopram Oxalate [Lexapro -] 30 mg PO DAILY 07/09/17 Folic Acid 1 mg PO DAILY 07/09/17 Furosemide 20 mg PO DAILY 07/09/17 Isosorbide Mononitrate [Isosorbide 30 mg PO DAILY 07/09/17 Mononitrate ER] Loratadine 10 mg PO DAILY 07/09/17 Multivitamin [Poly-Vitamin] 1 each PO DAILY 07/09/17 Omeprazole 20 mg PO DAILY 07/09/17 Polyethylene Glycol 3350 [Clearlax] 17 gm PO DAILY 07/09/17 Rivaroxaban [Xarelto -] 20 mg PO 1800 07/09/17 Acetaminophen 650 mg PO Q8H PRN 07/10/17 Lisinopril [Prinivil] 5 mg PO BID #60 tablet 11/15/18 Metoprolol Tartrate [Lopressor -] 75 mg PO BID #60 tablet 11/15/18 Ascorbate Calcium [Vitamin C] 500 mg PO BID 04/08/19 Miconazole Nitrate [Miconazole 1 applic TP BID 04/08/19 Nitrate -] Albuterol 2.5/Ipratropium 0.5 1 amp NEB Q8H 06/07/19 [Duoneb -] REVIEW OF SYSTEMS PHYSICAL EXAMINATION Vital Signs - 24 hr 06/06/19 06/06/19 06/07/19 23:15 23:30 00:15 Temperature 102.1 F H Pulse Rate 112 H Pulse Rate [ Right Radial] Respiratory 22 H 23 H 23 H Rate Blood Pressure 116/66 Blood Pressure [Left Arm] O2 Sat by Pulse 96 96 Oximetry (%) 06/07/19 06/07/19 06/07/19 00:30 01:00 01:15 Temperature Pulse Rate Pulse Rate [ 108 H 130 H 138 H Right Radial] Respiratory 25 H 26 H 26 H Rate Blood Pressure Blood Pressure 144/83 151/92 150/116 H [Left Arm] O2 Sat by Pulse 93 L 97 97 Oximetry (%) GENERAL: Intubated, sedated, RASS -5 on fentanyl drip HEAD: Normal with no signs of trauma. LUNGS: Breath sounds equal, crackles present b/l worse in upper lobes. HEART: Regular rate and rhythm, normal S1 and S2 without murmur, rub or gallop. ABDOMEN: Soft, normoactive bowel sounds, no guarding, no rebound, no masses. LOWER EXTREMITIES: 2+ pulses, warm, well-perfused. No calf tenderness. No peripheral edema. NEUROLOGICAL: sedated PSYCHIATRIC: Cooperative. Good eye contact. Appropriate mood and affect. SKIN: Warm, dry, no rashes or lesions noted. Laboratory Results - last 24 hr 06/06/19 06/06/19 06/06/19 23:20 23:20 23:20 WBC 7.7 RBC 3.56 L Hgb 11.5 Hct 34.4 MCV 96.6 H MCH 32.4 MCHC 33.5 RDW 15.7 H Plt Count 244 MPV 9.0 Absolute Neuts (auto) 6.7 Neutrophils % 86.9 H D Lymphocytes % 8.7 D Monocytes % 3.6 L Eosinophils % 0.3 D Basophils % 0.5 Nucleated RBC % 0 PT with INR 15.50 H INR 1.31 H PTT (Actin FS) 33.3 Anticoagulation Therapy Puncture Site ABG pH ABG pCO2 at Pt Temp ABG pO2 at Pt Temp ABG HCO3 ABG O2 Sat (Measured) ABG O2 Content ABG Base Excess Michael Test Carboxyhemoglobin Methemoglobin O2 Delivery Device Oxygen Flow Rate Vent Mode Vent Rate Mechanical Rate PEEP Pressure Support Vent Sodium 139 Potassium 4.1 Chloride 103 Carbon Dioxide 28 Anion Gap 8 BUN 30.9 H Creatinine 1.2 Est GFR (CKD-EPI)AfAm 49.78 Est GFR (CKD-EPI)NonAf 42.95 Random Glucose 205 H Lactic Acid Calcium 8.4 L Total Bilirubin 0.6 AST 30 ALT 29 Alkaline Phosphatase 109 Troponin I < 0.02 Total Protein 7.0 Albumin 3.0 L Urine Color Urine Appearance Urine pH Ur Specific [place] Urine Protein Urine Glucose (UA) Urine Ketones Urine Blood Urine Nitrite Urine Bilirubin Urine Urobilinogen Ur Leukocyte Esterase Urine WBC (Auto) Urine RBC (Auto) Urine Casts (Auto) U Pathogenic Cast Auto U Epithel Cells (Auto) U Sm Round Cell (Auto) Urine Crystals (Auto) Urine Bacteria (Auto) Urine Yeast (Auto) Influenza A (Rapid) Influenza B (Rapid) 06/06/19 06/06/19 06/06/19 23:20 23:40 23:45 WBC RBC Hgb Hct MCV MCH MCHC RDW Plt Count MPV Absolute Neuts (auto) Neutrophils % Lymphocytes % Monocytes % Eosinophils % Basophils % Nucleated RBC % PT with INR INR PTT (Actin FS) Anticoagulation Therapy No Result Required. Puncture Site Right radial ABG pH 7.25 L ABG pCO2 at Pt Temp 60.7 H ABG pO2 at Pt Temp 70.5 L ABG HCO3 26.0 ABG O2 Sat (Measured) 89.3 L ABG O2 Content 17.3 ABG Base Excess -2.0 Michael Test Positive Carboxyhemoglobin 0.8 Methemoglobin < 1.0 O2 Delivery Device Vent Oxygen Flow Rate Yes Vent Mode A/c Vent Rate 16 Mechanical Rate No Result Required. PEEP 5.0 Pressure Support Vent 450 Sodium Potassium Chloride Carbon Dioxide Anion Gap BUN Creatinine Est GFR (CKD-EPI)AfAm Est GFR (CKD-EPI)NonAf Random Glucose Lactic Acid 3.5 H* Calcium Total Bilirubin AST ALT Alkaline Phosphatase Troponin I Total Protein Albumin Urine Color Urine Appearance Urine pH Ur Specific [place] Urine Protein Urine Glucose (UA) Urine Ketones Urine Blood Urine Nitrite Urine Bilirubin Urine Urobilinogen Ur Leukocyte Esterase Urine WBC (Auto) Urine RBC (Auto) Urine Casts (Auto) U Pathogenic Cast Auto U Epithel Cells (Auto) U Sm Round Cell (Auto) Urine Crystals (Auto) Urine Bacteria (Auto) Urine Yeast (Auto) Influenza A (Rapid) Negative Influenza B (Rapid) Negative 06/06/19 23:50 WBC RBC Hgb Hct MCV MCH MCHC RDW Plt Count MPV Absolute Neuts (auto) Neutrophils % Lymphocytes % Monocytes % Eosinophils % Basophils % Nucleated RBC % PT with INR INR PTT (Actin FS) Anticoagulation Therapy Puncture Site ABG pH ABG pCO2 at Pt Temp ABG pO2 at Pt Temp ABG HCO3 ABG O2 Sat (Measured) ABG O2 Content ABG Base Excess Michael Test Carboxyhemoglobin Methemoglobin O2 Delivery Device Oxygen Flow Rate Vent Mode Vent Rate Mechanical Rate PEEP Pressure Support Vent Sodium Potassium Chloride Carbon Dioxide Anion Gap BUN Creatinine Est GFR (CKD-EPI)AfAm Est GFR (CKD-EPI)NonAf Random Glucose Lactic Acid Calcium Total Bilirubin AST ALT Alkaline Phosphatase Troponin I Total Protein Albumin Urine Color Yellow Urine Appearance Cloudy Urine pH 5.0 Ur Specific [place] 1.023 Urine Protein 1+ H Urine Glucose (UA) Negative Urine Ketones Negative Urine Blood Negative Urine Nitrite Negative Urine Bilirubin Negative Urine Urobilinogen 0.2 Ur Leukocyte Esterase Trace Urine WBC (Auto) 56 Urine RBC (Auto) 2 Urine Casts (Auto) 111 U Pathogenic Cast Auto None U Epithel Cells (Auto) >36 U Sm Round Cell (Auto) None Urine Crystals (Auto) Amorphous urates Urine Bacteria (Auto) 9 Urine Yeast (Auto) None Influenza A (Rapid) Influenza B (Rapid) ASSESSMENT/PLAN: This is a 78 year old female with a PMHx significant for Alzheimer's dementia, COPD, Asthma, HFpEF, Afib (on Xarelto), HTN, HLD, Breast Ca s/p L- Mastectomy, most recently admitted at [facility] 04/11-04/24 for sepsis 2/2 UTI. She was brought to the ER by EMS after she was found to be in respiratory distress. She had a SpO2 of 60% and subsequently was intubated by EMS team. Lines: 2 IV's day 1 each #Acute hypercapneic hypoxemic respiratory failure likely 2/2 aspiration PNA vs CAP - possibly due to hx of alzheimer dementia difficulty swallowing, will obtain more hx from the family tomorrow. - intubated on sedation, versed and fentanyl drip - meraz culture urine, blood sputum, legionella - eckert in place monitoring urine output for >0.5cc/kg/hr - tylenol prn for fever >100.4 - L.A. 3.4, repete pending - influenza negative, UA negative - initial ABG showing 7.25, 60.7 co2 70.5 PaO2, 89% SaO2 -> Acute hypercapnic hypoxemic RF based on abg - vent settings: TV-500, RR-16, Peak flow- 60, PEEP- 6, 100%O2 - stopped propofol due to MAP 55 - per chart review states pt would only like hydration to keep pt alive. - if pt MAP does not respond to adequate fluid resuscitation will contact family regarding permission for placement of central line. - vanc, zosyn, no azithro due to prolonged QTC 495. - will continue to maintain MAP >65 - IV NS 75cc/hr due to hx of HFpEF - rpt ABG s/p intubation-> improved to 7.33, 48 co2, PaO2 93, hco3 24.9, 96% #? Acute worsening of kidney function -> likely 2/2 sepsis - Cr 1.2 (baseline over the past year seems to be 0.6-0.9), Gfr 43 - due to hypoperfusion of renal arterioles given TPR decrease - renally dosed abx #HFpEF - Echo 11/12: EF 65% - monitor lungs s/p IVF's to ensure not overloading patient - Lasix 20 daily #AFib/HTN - isosorbide qd - lisinopril 5 - metoprolol tartrate 75mg BID holding parameters: systolic <100, HR <70 - xarelto 20mg daily HLD -lipitor 20 Mood disorder/Alzheimer dentia - c/w Depakote - c/w Donepezil - klonopin 0.5 TID for anxiety - lexapro 30 daily DVT PPX: continuing eliquis, through NG tube. Visit type - Emergency Visit Emergency Visit: Yes ED Registration Date: 06/07/19 Care time: The patient presented to the Emergency Department on the above date and was hospitalized for further evaluation of their emergent condition. - New Patient This patient is new to me today: Yes Date on this admission: 06/09/19 - Critical Care Critical Care patient: Yes Total Critical Care Time (in minutes): 40 Critical Care Statement: The care of this patient involved high complexity decision making to prevent further life threatening deterioration of the patient 's condition and/or to evaluate & treat vital organ system(s) failure or risk of failure. ATTENDING PHYSICIAN STATEMENT I saw and evaluated the patient. I reviewed the resident's note and discussed the case with the resident. I agree with the resident's findings and plan as documented. SUBJECTIVE: OBJECTIVE: ASSESSMENT AND PLAN:
[2019-06-07] MEDS ORDERED: MIDAZOLAM 100 MG in SODIUM CHLORIDE 100 ML IVPB SCH (03:15)
[2019-06-07] MEDS ORDERED: MIDAZOLAM IN 0.9 % SOD.CHLORID 100 MG/100 ML PLAST..BAG IVPB SCH (04:00)
[2019-06-07] MEDS: SODIUM CHLORIDE 1,000 ML IV SCH (04:08)
[2019-06-07 04:31] LABS: ARTERIAL BLD GAS O2 SATURATION 96.3 % (95-98); ARTERIAL BLOOD GAS BASE EXCESS -0.7 meq/l (-2-2); ARTERIAL BLOOD GAS pH 7.33 (7.35-7.45)
[2019-06-07 04:32] LABS: ALLENS TEST POSITIVE
[2019-06-07] MEDS ORDERED: HEPARIN NA (PORCINE) 5,000 UNITS/ML 1ML VIAL IVPUSH PRN (05:29)
[2019-06-07] MEDS ORDERED: HEPARIN NA (PORCINE) 5,000 UNITS/ML 1ML VIAL SQ SCH (06:00)
[2019-06-07] MEDS ORDERED: clonazePAM 0.5 MG TABLET PO SCH (06:00)
--- NOTE | 2019-06-07 07:15 | PN ---
Physical Exam: SUBJECTIVE: Patient seen and examined. Intubated, sedated. OBJECTIVE: Vital Signs Period Temp Pulse Resp BP Sys/Crawford Pulse Ox Last 24 Hr 102.1 F 108-138 19-26 116-151/66-116 93-97 GENERAL: intubated, sedated HEAD: Normal with no signs of trauma. EYES: PERRL, no scleral icterus EARS, NOSE, THROAT: Dry mucus membranes LUNGS: diminished breath sounds bilaterally, no accessory muscle use HEART: RRR, no murmurs ABDOMEN: Soft, nontender, not distended LOWER EXTREMITIES: Warm, no edema, well perfused NEUROLOGICAL: Sedated and intubated, normal gag reflex SKIN: Dry, warm Laboratory Results - last 24 hr 06/06/19 06/06/19 06/06/19 23:20 23:20 23:20 WBC 7.7 RBC 3.56 L Hgb 11.5 Hct 34.4 MCV 96.6 H MCH 32.4 MCHC 33.5 RDW 15.7 H Plt Count 244 MPV 9.0 Absolute Neuts (auto) 6.7 Neutrophils % 86.9 H D Lymphocytes % 8.7 D Monocytes % 3.6 L Eosinophils % 0.3 D Basophils % 0.5 Nucleated RBC % 0 PT with INR 15.50 H INR 1.31 H PTT (Actin FS) 33.3 Anticoagulation Therapy Puncture Site ABG pH ABG pCO2 at Pt Temp ABG pO2 at Pt Temp ABG HCO3 ABG O2 Sat (Measured) ABG O2 Content ABG Base Excess Michael Test Carboxyhemoglobin Methemoglobin O2 Delivery Device Oxygen Flow Rate Vent Mode Vent Rate Mechanical Rate PEEP Pressure Support Vent Sodium 139 Potassium 4.1 Chloride 103 Carbon Dioxide 28 Anion Gap 8 BUN 30.9 H Creatinine 1.2 Est GFR (CKD-EPI)AfAm 49.78 Est GFR (CKD-EPI)NonAf 42.95 Random Glucose 205 H Lactic Acid Calcium 8.4 L Total Bilirubin 0.6 AST 30 ALT 29 Alkaline Phosphatase 109 Troponin I < 0.02 Total Protein 7.0 Albumin 3.0 L Urine Color Urine Appearance Urine pH Ur Specific Rogerson Urine Protein Urine Glucose (UA) Urine Ketones Urine Blood Urine Nitrite Urine Bilirubin Urine Urobilinogen Ur Leukocyte Esterase Urine WBC (Auto) Urine RBC (Auto) Urine Casts (Auto) U Pathogenic Cast Auto U Epithel Cells (Auto) U Sm Round Cell (Auto) Urine Crystals (Auto) Urine Bacteria (Auto) Urine Yeast (Auto) Influenza A (Rapid) Influenza B (Rapid) 06/06/19 06/06/19 06/06/19 23:20 23:40 23:45 WBC RBC Hgb Hct MCV MCH MCHC RDW Plt Count MPV Absolute Neuts (auto) Neutrophils % Lymphocytes % Monocytes % Eosinophils % Basophils % Nucleated RBC % PT with INR INR PTT (Actin FS) Anticoagulation Therapy No Result Required. Puncture Site Right radial ABG pH 7.25 L ABG pCO2 at Pt Temp 60.7 H ABG pO2 at Pt Temp 70.5 L ABG HCO3 26.0 ABG O2 Sat (Measured) 89.3 L ABG O2 Content 17.3 ABG Base Excess -2.0 Michael Test Positive Carboxyhemoglobin 0.8 Methemoglobin < 1.0 O2 Delivery Device Vent Oxygen Flow Rate Yes Vent Mode A/c Vent Rate 16 Mechanical Rate No Result Required. PEEP 5.0 Pressure Support Vent 450 Sodium Potassium Chloride Carbon Dioxide Anion Gap BUN Creatinine Est GFR (CKD-EPI)AfAm Est GFR (CKD-EPI)NonAf Random Glucose Lactic Acid 3.5 H* Calcium Total Bilirubin AST ALT Alkaline Phosphatase Troponin I Total Protein Albumin Urine Color Urine Appearance Urine pH Ur Specific Rogerson Urine Protein Urine Glucose (UA) Urine Ketones Urine Blood Urine Nitrite Urine Bilirubin Urine Urobilinogen Ur Leukocyte Esterase Urine WBC (Auto) Urine RBC (Auto) Urine Casts (Auto) U Pathogenic Cast Auto U Epithel Cells (Auto) U Sm Round Cell (Auto) Urine Crystals (Auto) Urine Bacteria (Auto) Urine Yeast (Auto) Influenza A (Rapid) Negative Influenza B (Rapid) Negative 06/06/19 06/07/19 23:50 04:20 WBC RBC Hgb Hct MCV MCH MCHC RDW Plt Count MPV Absolute Neuts (auto) Neutrophils % Lymphocytes % Monocytes % Eosinophils % Basophils % Nucleated RBC % PT with INR INR PTT (Actin FS) Anticoagulation Therapy Puncture Site Right radial ABG pH 7.33 L ABG pCO2 at Pt Temp 48.0 H ABG pO2 at Pt Temp 93.0 ABG HCO3 24.9 ABG O2 Sat (Measured) 96.3 ABG O2 Content 13.9 ABG Base Excess -0.7 Michael Test Positive Carboxyhemoglobin Methemoglobin O2 Delivery Device Vent Oxygen Flow Rate 100% Vent Mode A/c Vent Rate 16 Mechanical Rate Yes PEEP 8.0 Pressure Support Vent 450 Sodium Potassium Chloride Carbon Dioxide Anion Gap BUN Creatinine Est GFR (CKD-EPI)AfAm Est GFR (CKD-EPI)NonAf Random Glucose Lactic Acid Calcium Total Bilirubin AST ALT Alkaline Phosphatase Troponin I Total Protein Albumin Urine Color Yellow Urine Appearance Cloudy Urine pH 5.0 Ur Specific Rogerson 1.023 Urine Protein 1+ H Urine Glucose (UA) Negative Urine Ketones Negative Urine Blood Negative Urine Nitrite Negative Urine Bilirubin Negative Urine Urobilinogen 0.2 Ur Leukocyte Esterase Trace Urine WBC (Auto) 56 Urine RBC (Auto) 2 Urine Casts (Auto) 111 U Pathogenic Cast Auto None U Epithel Cells (Auto) >36 U Sm Round Cell (Auto) None Urine Crystals (Auto) Amorphous urates Urine Bacteria (Auto) 9 Urine Yeast (Auto) None Influenza A (Rapid) Influenza B (Rapid) Active Medications Generic Name Dose Route Start Last Admin Trade Name Freq PRN Reason Stop Dose Admin Albuterol/Ipratropium 1 amp 06/07/19 08:00 Duoneb - NEB RTID [facility] Chlorhexidine Gluconate 1 applic 06/07/19 22:00 Hibiclens For Decolonization - TP HS [facility] Heparin Sodium (Porcine) 1,000 unit 06/07/19 05:29 Heparin - IVPUSH PRN PRN Heparin Heparin Sodium (Porcine) 5,000 unit 06/07/19 05:29 Heparin - IVPUSH PRN PRN Heparin Fentanyl 500 mcg/ Dextrose 100 mls @ 5 mls/hr 06/06/19 23:30 06/07/19 04:55 IVPB 60 mcg/hr TITR [facility] 12 mls/hr Titration 25 MCG/HR Sodium Chloride 1,000 mls @ 75 mls/hr 06/07/19 01:30 06/07/19 04:08 Normal Saline - IV 75 mls/hr ASDIR [facility] Administration Propofol 1,000,000 mcg in 100 mls @ 2.994 mls/hr 06/07/19 02:15 06/07/19 02: 25 Diprivan - IVPB 10 mcg/kg/min TITR [facility] 2.994 mls/hr Administration Protocol 10 MCG/KG/MIN Midazolam HCl 100 mg in 100 mls @ 1 mls/hr 06/07/19 04:00 06/07/19 05:03 Midazolam 100mg/100ml-0.9%Nacl IVPB 06/08/19 03:59 1 mg/hr TITR [facility] 1 mls/hr Administration Protocol 1 MG/HR Heparin Sodium (Porcine) 25, 500 mls @ 16 mls/hr 06/07/19 05:30 000 unit/ Sodium Chloride IV TITR [facility] Protocol 800 UNIT/HR Piperacillin Sod/Tazobactam 50 mls @ 100 mls/hr 06/07/19 10:00 Sod 2.25 gm/ Dextrose IVPB Q8H-IV [facility] Protocol Miconazole Nitrate 1 applic 06/07/19 10:00 Miconazole Nitrate TP BID [facility] Mupirocin 1 applic 06/07/19 10:00 Bactroban Ointment (For Decolonization) - NS 06/12/19 09:59 BID [facility] Pantoprazole Sodium 40 mg 06/07/19 10:00 Protonix Iv IVPUSH DAILY [facility] Vancomycin HCl 1,000 mg 06/08/19 03:00 Vancomycin (Pre-Docked) IVPB DAILY [facility] Protocol ASSESSMENT/PLAN: 78 y/o/f with PMHx of Alzheimer's dementia, COPD, Asthma, HF PrEF, Afib (on Xarelto), HTN, HLD, Breast Ca s/p L- Mastectomy, admitted at [facility] 04/11-04/24 for sepsis 2/2 UTI. BIBEMS for acute hypoxic respiratory failure, 2/2 suspected aspiration pneumonia/CHF exacerbation, intubated in the field. Admitted 06/07. #SLEEP MEDICINE PHYSICIAN - Intubated, sedated for acute hypoxic respiratory failure, 2/2 suspected aspiration pneumonia/CHF exacerbation - Sedated on Fentanyl, Midazolam, Propofol - Hx of Alzheimer's dementia, on Donepezil at home #CVS - Hx of HF PrEF, on Lasix 20mg at home - Hx of HTN, on Lopressor 75mg, Lisinopril 5mg, Isosorbide mononitrate 30mg, - Hx of AFib, on Xarelto at home - Hold antiHTN medications at this time due to poor BP status - Blood pressure responsive to fluid bolus - Cardio ECHO this admission with normal EF #Respiratory - acute hypoxic respiratory failure, 2/2 suspected aspiration pneumonia/CHF exacerbation - CXR: multisegment pneumonia - adjust vent settings appropriately as per ABGs - patient DNI but intubated by EMS who were unaware of patient's code status #Renal - Cr 1.2 on admission (baseline over the past year seems to be 0.6-0.9), Gfr 43 - UA: Protein +1 - BUN/Cr today at 32.1/1.1 #ID - Aspiration pneumonia with acute hypoxic respiratory failure - WBC 7.7 -> 3.1 - LA 3.5 -> 3.4, continue to monitor - Continue on Vanc/Zosyn - Sputum, blood, urine cx pending #Heme - Hg 11.3 #FEN - N/S @ 75mls/hr - NPO, can consider tube feeds if intubated for extended period of time #Prophylaxis - Heparin drip - Protonix #Dispo - DNR/DNI - Continue ICU monitoring - Goals of Care discussion with family, Palliative care on board Visit type - Emergency Visit Emergency Visit: Yes ED Registration Date: 06/07/19 Care time: The patient presented to the Emergency Department on the above date and was hospitalized for further evaluation of their emergent condition. - New Patient This patient is new to me today: Yes Date on this admission: 06/07/19 - Critical Care Critical Care patient: Yes Total Critical Care Time (in minutes): 36 Critical Care Statement: The care of this patient involved high complexity decision making to prevent further life threatening deterioration of the patient 's condition and/or to evaluate & treat vital organ system(s) failure or risk of failure. ATTENDING PHYSICIAN STATEMENT I saw and evaluated the patient. I reviewed the resident's note and discussed the case with the resident. I agree with the resident's findings and plan as documented. SUBJECTIVE: OBJECTIVE: ASSESSMENT AND PLAN:
[2019-06-07 07:45] LABS: BASO % 0.2 % (0-2.0); EOS % 0.3 % (0-4.5); HEMATOCRIT 33.7 % (32.4-45.2); HEMOGLOBIN 11.3 GM/dL (10.7-15.3); LYMPH % 14.3 % (8-40); MCH 32.6 pg (25.7-33.7); MCHC 33.6 g/dl (32.0-36.0); MEAN PLT VOLUME 8.8 fl (7.5-11.1); MONO % 11.5 % (3.8-10.2); NEUT % 73.7 % (42.8-82.8); PLATELET COUNT 188 K/MM3 (134-434); RBC 3.47 M/mm3 (3.60-5.2); RDW 15.6 % (11.6-15.6); WHITE BLOOD COUNT 3.1 K/mm3 (4.0-10.0)
[2019-06-07 08:25] LABS: ALBUMIN 2.6 g/dl (3.4-5.0); BILIRUBIN,TOTAL 1.1 mg/dL (0.2-1); BLOOD UREA NITROGEN 32.1 mg/dL (7-18); CALCIUM 8.3 mg/dL (8.5-10.1); CREATININE 1.1 mg/dL (0.55-1.3); MAGNESIUM 1.9 mg/dL (1.8-2.4); PHOSPHOROUS 3.5 mg/dL (2.5-4.9)
[2019-06-07] MEDS: ALBUTEROL SO4 2.5/IPRATROPIUM 0.5 INH SOL 3 ML VIAL.NEB. NEB SCH ×3 (08:28→20:30)
[2019-06-07] MEDS: FENTANYL INJECTION 500 MCG in DEXTROSE 5%-WATER - 90 ML IVPB SCH ×3 (08:30→23:50)
[2019-06-07] MEDS ORDERED: PIPERACILLIN/TAZOB 2.25 GM 2.25 GM in DEXTROSE 5%-WATER - 50 ML IVPB SCH ×3 (09:00→10:45)
[2019-06-07] MEDS ORDERED: fentaNYL CITRATE 250 MCG/5 ML VIAL ONE ×2 (09:03→17:45)
[2019-06-07 09:24] LABS: MACROCYTOSIS 1+; PLATELET ESTIMATE NORMAL
[2019-06-07] MEDS: HEPARIN - 25,000 UNIT in SODIUM CHLORIDE 495 ML IV SCH (09:32)
[2019-06-07] MEDS: MUPIROCIN 2% TOPICAL OINTMENT FOR DECOLONIZATION NS SCH ×2 (09:33→21:10)
[2019-06-07] MEDS: MICONAZOLE NITRATE 28 GM TUBE TP SCH (09:34)
[2019-06-07] MEDS: PANTOPRAZOLE SODIUM 40 MG VIAL IVPUSH SCH (09:34)
[2019-06-07 09:49] VITALS: BMI 25.1
[2019-06-07] MEDS ORDERED: POLYETHYLENE GLYCOL 3350 119 GM BTL PO SCH (10:00)
[2019-06-07] MEDS ORDERED: ASCORBIC ACID 500 MG TABLET (FP) PO SCH (10:00)
[2019-06-07] MEDS ORDERED: DIVALPROEX SODIUM 250 MG TABLET E.C. PO SCH (10:00)
[2019-06-07] MEDS ORDERED: METOPROLOL TARTRATE 50 MG TABLET (FP) PO SCH (10:00)
[2019-06-07] MEDS ORDERED: MULTIVITAMINS (DAILY MVI) TABLET (FP) PO SCH (10:00)
[2019-06-07] MEDS ORDERED: ANASTROZOLE 1 MG TABLET PO SCH (10:00)
[2019-06-07] MEDS ORDERED: PANTOPRAZOLE 20 MG TABLET (FP) PO SCH (10:00)
[2019-06-07] MEDS ORDERED: LISINOPRIL 5 MG TABLET (FP) PO SCH (10:00)
[2019-06-07] MEDS ORDERED: FUROSEMIDE 20 MG TABLET (FP) PO SCH (10:00)
[2019-06-07] MEDS ORDERED: ISOSORBIDE MONONITRATE 30 MG TAB.SR.24H (FP) PO SCH (10:00)
[2019-06-07] MEDS ORDERED: ESCITALOPRAM OXALATE 10 MG TABLET (FP) PO SCH (10:00)
[2019-06-07] MEDS ORDERED: FOLIC ACID 1 MG TABLET (FP) PO SCH (10:00)
[2019-06-07] MEDS ORDERED: LORATADINE 10 MG TABLET PO SCH (10:00)
--- NOTE | 2019-06-07 10:27 | PN ---
Progress Note, Physician Chief Complaint: respiratory failure History of Present Illness: sent from [facility] for respiratory failure-- pt was intubated in the field by EMS -- did not know advanced directives Pt is awake, not on pressors Found to have Afib-- on heparin gtt - Current Medication List Current Medications: Active Medications Albuterol/Ipratropium (Duoneb -) 1 amp NEB RTID [place] Last Admin: 06/07/19 08:28 Dose: 1 amp Chlorhexidine Gluconate (Hibiclens For Decolonization -) 1 applic TP HS C[place] Heparin Sodium (Porcine) (Heparin -) 1,000 unit IVPUSH PRN PRN PRN Reason: Heparin Heparin Sodium (Porcine) (Heparin -) 5,000 unit IVPUSH PRN PRN PRN Reason: Heparin Fentanyl 500 mcg/ Dextrose 100 mls @ 5 mls/hr IVPB TITR [place] Last Titration: 06/07/19 04:55 Dose: 60 mcg/hr, 12 mls/hr Sodium Chloride (Normal Saline -) 1,000 mls @ 75 mls/hr IV ASDIR [facility] Last Admin: 06/07/19 04:08 Dose: 75 mls/hr Propofol (Diprivan -) 1,000,000 mcg in 100 mls @ 2.994 mls/hr IVPB TITR [facility]; Protocol Last Admin: 06/07/19 02:25 Dose: 10 mcg/kg/min, 2.994 mls/hr Midazolam HCl (Midazolam 100mg/100ml-0.9%Nacl) 100 mg in 100 mls @ 1 mls/hr IVPB TITR C[place]; Protocol Stop: 06/08/19 03:59 Last Admin: 06/07/19 05:03 Dose: 1 mg/hr, 1 mls/hr Heparin Sodium (Porcine) 25, (000 unit/ Sodium Chloride) 500 mls @ 16 mls/hr IV TITR [place]; Protocol Last Admin: 06/07/19 09:32 Dose: 800 unit/hr, 16 mls/hr Piperacillin Sod/Tazobactam (Sod 2.25 gm/ Dextrose) 50 mls @ 100 mls/hr IVPB Q8H-IV [facility]; Protocol Miconazole Nitrate (Miconazole Nitrate) 1 applic TP BID [place] Last Admin: 06/07/19 09:34 Dose: Not Given Mupirocin (Bactroban Ointment (For Decolonization) -) 1 applic NS BID [place] Stop: 06/12/19 09:59 Last Admin: 06/07/19 09:33 Dose: 1 applic Pantoprazole Sodium (Protonix Iv) 40 mg IVPUSH DAILY [facility] Last Admin: 06/07/19 09:34 Dose: 40 mg Vancomycin HCl (Vancomycin (Pre-Docked)) 1,000 mg IVPB DAILY [facility]; Protocol - Objective Vital Signs: Vital Signs Temperature 99.6 F 06/07/19 10:00 Pulse Rate 102 H 06/07/19 10:00 Respiratory Rate 19 06/07/19 10:00 Blood Pressure 97/56 L 06/07/19 10:00 O2 Sat by Pulse Oximetry (%) 97 06/07/19 09:00 Constitutional: Yes: No Distress Cardiovascular: Yes: Pulse Irregular Respiratory: Yes: Diminished Gastrointestinal: Yes: Normal Bowel Sounds, Soft. No: Tenderness Edema: Yes Edema: LLE: Trace, RLE: Trace Labs: CBC, BMP 06/07/19 07:10 06/07/19 07:10 INR, PTT INR 1.31 (0.83-1.09) H 06/06/19 23:20 Problem List - Problems (1) Atrial fibrillation with RVR Code(s): I48.91 - UNSPECIFIED ATRIAL FIBRILLATION (2) Pneumonia Code(s): J18.9 - PNEUMONIA, UNSPECIFIED ORGANISM Qualifiers: Pneumonia type: aspiration pneumonia (3) Respiratory distress Code(s): R06.03 - ACUTE RESPIRATORY DISTRESS (4) Severe sepsis Code(s): A41.9 - SEPSIS, UNSPECIFIED ORGANISM; R65.20 - SEVERE SEPSIS WITHOUT SEPTIC SHOCK (5) Respiratory failure Code(s): J96.90 - RESPIRATORY FAILURE, UNSP, UNSP W HYPOXIA OR HYPERCAPNIA (6) Diastolic dysfunction Code(s): I51.9 - HEART DISEASE, UNSPECIFIED (7) Hypoxia Code(s): R09.02 - HYPOXEMIA Assessment/Plan PLAN Ventilator support IV antibiotics IV fluids continue with ICU monitoring spoke with ID cultures pending urine antigens negative Influenza negative on Heparin gtt monitor labs palliative care eval
[2019-06-07] MEDS ORDERED: SODIUM CHLORIDE 0.9% 500 ML INFUS.BAG IV ONE (11:01)
--- NOTE | 2019-06-07 11:19 | CON.ID ---
Consult Consult Specialty:: infectious diseases Referred by:: Hospitalist Reason for Consultation:: resp failure,pneumonia - History of Present Illness Chief Complaint: pneumonia History of Present Illness: patient currently intubated history obtained from the charts 78 y/o woman from [facility] with a PMHx of Dementia, Dysphagia, COPD/Asthma, Diastolic CHF, ASHD, Afib (on Xarelto), HTN, HLD, GERD, Breast Ca s/p L- Mastectomy, Brought in from her fdc to hospital after she was thought to have aspirated and went into respiratory distress. EMS was summoned and proceeded with intubating her.In the emergency room she was found to have a high fever and was tachycardic and tachypneic. Was intubated for respiratory failure - History Source History Provided By: Medical Record Limitations to Obtaining History: Clinical Condition - Past Medical History [employer]: Yes: Dementia Cardio/Vascular: Yes: AFIB, CHF, HTN, Hyperlipdemia, Other (ASHD) Pulmonary: Yes: Asthma, COPD, Pneumonia Gastrointestinal: Yes: GERD, Other (Appendectomy at age 4 and, reexploration, laparotomy 5 years ago) Hepatobiliary: Yes: Cholecystitis (son gives h/o cholecystititis in past) Psych: Yes: Anxiety - Past Surgical History Past Surgical History: Yes: Appendectomy, Mastectomy (left sided) - Alcohol/Substance Use Hx Alcohol Use: No History of Substance Use: reports: None - Smoking History Smoking history: Former smoker Have you smoked in the past 12 months: No - Social History Usual Living Arrangement: Fdc ADL: Support Services History of Recent Travel: No Home Medications - Allergies Allergies/Adverse Reactions: Allergies Allergy/AdvReac Type Severity Reaction Status Date / Time No Known Allergies Allergy Verified 06/07/19 00:16 - Home Medications Home Medications: Ambulatory Orders Anastrozole [Arimidex -] 1 mg PO DAILY 07/09/17 Atorvastatin Ca [Lipitor] 20 mg PO HS 07/09/17 Clonazepam 0.5 mg PO TID 07/09/17 Divalproex [Depakote -] 250 mg PO BID 07/09/17 Donepezil HCl 10 mg PO HS 07/09/17 Escitalopram Oxalate [Lexapro -] 30 mg PO DAILY 07/09/17 Folic Acid 1 mg PO DAILY 07/09/17 Furosemide 20 mg PO DAILY 07/09/17 Isosorbide Mononitrate [Isosorbide Mononitrate ER] 30 mg PO DAILY 07/09/17 Loratadine 10 mg PO DAILY 07/09/17 Multivitamin [Poly-Vitamin] 1 each PO DAILY 07/09/17 Omeprazole 20 mg PO DAILY 07/09/17 Polyethylene Glycol 3350 [Clearlax] 17 gm PO DAILY 07/09/17 Rivaroxaban [Xarelto -] 20 mg PO 1800 07/09/17 Acetaminophen 650 mg PO Q8H PRN 07/10/17 Lisinopril [Prinivil] 5 mg PO BID #60 tablet 11/15/18 Metoprolol Tartrate [Lopressor -] 75 mg PO BID #60 tablet 11/15/18 Ascorbate Calcium [Vitamin C] 500 mg PO BID 04/08/19 Miconazole Nitrate [Miconazole Nitrate -] 1 applic TP BID 04/08/19 Albuterol 2.5/Ipratropium 0.5 [Duoneb -] 1 amp NEB Q8H 06/07/19 Review of Systems Unable to obtain ROS, reason: unable to obtain Physical Exam Vital Signs: Vital Signs Temperature 99.6 F 06/07/19 10:00 Pulse Rate 102 H 06/07/19 10:00 Respiratory Rate 19 06/07/19 10:00 Blood Pressure 97/56 L 06/07/19 10:00 O2 Sat by Pulse Oximetry (%) 97 06/07/19 09:00 Constitutional: Yes: Other Cardiovascular: Yes: Regular Rate and Rhythm Respiratory: Yes: Intubated, Mechanically Ventilated Gastrointestinal: Yes: Normal Bowel Sounds, Soft Musculoskeletal: Yes: WNL Extremities: Yes: WNL Neurological: Yes: Other Psychiatric: Yes: Other Labs: CBC, BMP 06/07/19 07:10 06/07/19 07:10 Imaging - Results Chest X-ray: Report Reviewed, Image Reviewed Assessment/Plan 78-year-old fdc woman with hypercapnic, hypoxic respiratory failure status post intubation, septic shock secondary to aspiration pneumonia patient currently intubated we will continue current mgmt abx resp support rest as per the team await for all cx reports cc 45 min
--- NOTE | 2019-06-07 11:36 | PN ---
Teaching Attending Note Name of Resident: Nadia Evangelista ATTENDING PHYSICIAN STATEMENT I saw and evaluated the patient. I reviewed the resident's note and discussed the case with the resident. I agree with the resident's findings and plan as documented. SUBJECTIVE: Pt seen and examined in the ICU. Remains intubated, sedated. No pressors. Vented on volume assist control with 100% FiO2. Family considering withdrawal of care. OBJECTIVE: Vital Signs Period Temp Pulse Resp BP Sys/Crawford Pulse Ox Last 24 Hr 99.6 F-102.6 F 94-151 16-33 52-165/37-142 93-97 Intake & Output 06/04/19 06/05/19 06/06/19 06/07/19 23:59 23:59 23:59 23:59 Intake Total 1519 Output Total 130 150 Balance -130 1369 Weight 49.895 kg 72.802 kg Gen: intubated, sedated Heart: RRR Lung: scattered rhonchi Abd: soft, nontender Ext: no edema CBC, BMP 06/07/19 07:10 06/07/19 07:10 Active Medications Albuterol/Ipratropium (Duoneb -) 1 amp NEB RTID [place] Last Admin: 06/07/19 08:28 Dose: 1 amp Chlorhexidine Gluconate (Hibiclens For Decolonization -) 1 applic TP HS C[place] Heparin Sodium (Porcine) (Heparin -) 1,000 unit IVPUSH PRN PRN PRN Reason: Heparin Heparin Sodium (Porcine) (Heparin -) 5,000 unit IVPUSH PRN PRN PRN Reason: Heparin Fentanyl 500 mcg/ Dextrose 100 mls @ 5 mls/hr IVPB TITR [place] Last Titration: 06/07/19 04:55 Dose: 60 mcg/hr, 12 mls/hr Sodium Chloride (Normal Saline -) 1,000 mls @ 75 mls/hr IV ASDIR [place] Last Admin: 06/07/19 04:08 Dose: 75 mls/hr Propofol (Diprivan -) 1,000,000 mcg in 100 mls @ 2.994 mls/hr IVPB TITR [place]; Protocol Last Admin: 06/07/19 02:25 Dose: 10 mcg/kg/min, 2.994 mls/hr Midazolam HCl (Midazolam 100mg/100ml-0.9%Nacl) 100 mg in 100 mls @ 1 mls/hr IVPB TITR [place]; Protocol Stop: 06/08/19 03:59 Last Admin: 06/07/19 05:03 Dose: 1 mg/hr, 1 mls/hr Heparin Sodium (Porcine) 25, (000 unit/ Sodium Chloride) 500 mls @ 16 mls/hr IV TITR [place]; Protocol Last Admin: 06/07/19 09:32 Dose: 800 unit/hr, 16 mls/hr Vancomycin HCl 1,000 mg/ (Dextrose) 250 mls @ 200 mls/hr IVPB Q24H [facility]; Protocol Piperacillin Sod/Tazobactam (Sod 3.375 gm/ Dextrose) 50 mls @ 100 mls/hr IVPB BID [facility]; Protocol Miconazole Nitrate (Miconazole Nitrate) 1 applic TP BID [place] Last Admin: 06/07/19 09:34 Dose: Not Given Mupirocin (Bactroban Ointment (For Decolonization) -) 1 applic NS BID [place] Stop: 06/12/19 09:59 Last Admin: 06/07/19 09:33 Dose: 1 applic Pantoprazole Sodium (Protonix Iv) 40 mg IVPUSH DAILY [facility] Last Admin: 06/07/19 09:34 Dose: 40 mg ASSESSMENT AND PLAN: Acute Hypoxic and Hypercapneic Respiratory Failure Pneumonia likely Aspiration Severe Sepsis Lactic Acidosis LV Diastolic Dysfunction Atrial Fibrillation COPD h/o Breast Ca Dementia - continue antibiotics - f/u cultures - IVF boluses as needed - monitor urine output, creatinine - trend lactate - taper Fio2 to keep SpO2 >90% - continue assist control - continue discussions regarding goals of care - poor overall prognosis critical care time spent in reviewing chart, evaluating patient and formulating plan 35 min
[2019-06-07] MEDS ORDERED: PIPERACILLIN/TAZOBACTAM 3.375 GM VIAL IVPB ONE ×2 (12:18→20:32)
[2019-06-07] MEDS ORDERED: DEXTROSE 5%-WATER - 50 ML IVPB ONE ×2 (12:18→20:32)
[2019-06-07] MEDS: PIPERACILLIN/TAZOB 3.375 GM 3.375 GM in DEXTROSE 5%-WATER - 50 ML IVPB SCH ×2 (12:45→21:09)
--- NOTE | 2019-06-07 13:18 | ECHO ---
Name: TORIN CESAR Exam:Adult Echocardiogram Study Date: 06/07/2019 08:35 AM Age: 78 yrs Reason For Study: LV Function Height: 63 in Weight: 110 lb BSA: 1.5 m2 MMode/2D Measurements & Calculations IVSd: 1.1 cm Ao root diam: 3.0 cm LVIDd: 3.8 cm LA dimension: 3.7 cm LVIDs: 2.6 cm LVPWd: 0.76 cm EDV(Teich): 63.3 ml LVOT diam: 2.0 cm ESV(Teich): 25.0 ml LAV (MOD-bp): 41.5 ml Doppler Measurements & Calculations MV E max ventura: 102.0 cm/sec Ao V2 max: 162.9 cm/sec MV A max ventura: 66.9 cm/sec Ao max P.6 mmHg MV E/A: 1.5 AI P1/2t: 342.8 msec MV dec time: 0.13 sec KANDY(V,D): 1.8 cm2 AI max ventura: 196.8 cm/sec LV V1 max P.5 mmHg AI max P.9 mmHg LV V1 max: 94.1 cm/sec AI dec slope: 168.2 cm/sec2 MR max ventura: 317.6 cm/sec TR max ventura: 243.3 cm/sec MR max P.7 mmHg TR max P.7 mmHg PA V2 max: 123.5 cm/sec Med Peak E' Ventura: 9.4 cm/sec PA max P.1 mmHg Med E/e': 10.9 Lat Peak E' Ventura: 14.9 cm/sec Lat E/e': 6.8 Procedure A two-dimensional transthoracic echocardiogram with color flow and Doppler was performed. Left Ventricle The left ventricular size, thickness and function are normal. The left ventricular ejection fraction is normal. Ejection Fraction = 60-65%. The left ventricular wall motion is normal. Right Ventricle The right ventricle is normal in size and function. Atria Normal left and right atrial size and function. Mitral Valve There is no mitral regurgitation noted. Tricuspid Valve There is trace tricuspid regurgitation. Right ventricular systolic pressure is normal. Aortic Valve No hemodynamically significant valvular aortic stenosis. No aortic regurgitation is present. Pulmonic Valve There is no pulmonic valvular regurgitation. Great Vessels The aortic root is normal size. Pericardium/Pleura There is no pericardial effusion. Interpretation Summary The left ventricular size, thickness and function are normal The right ventricle is normal in size and function. There is trace tricuspid regurgitation. MD Simon Cabrera 06/07/2019 01:18 PM
[2019-06-07] MEDS ORDERED: ACETAMINOPHEN 1000 MG/100 ML VIAL (NON FORMULARY) IVPB PRN (14:36)
--- NOTE | 2019-06-07 14:42 | EKG ---
Test Reason : Blood Pressure : / mmHG Vent. Rate : 110 BPM Atrial Rate : 267 BPM P-R Int : 000 ms QRS Dur : 098 ms QT Int : 366 ms P-R-T Axes : 000 063 070 degrees QTc Int : 495 ms ATRIAL FIBRILLATION WITH RAPID VENTRICULAR RESPONSE NONSPECIFIC ST ABNORMALITY ABNORMAL ECG WHEN COMPARED WITH ECG OF 08-APR-2019 21:33, ST NO LONGER DEPRESSED IN LATERAL LEADS NONSPECIFIC T WAVE ABNORMALITY NO LONGER EVIDENT IN INFERIOR LEADS T WAVE INVERSION NO LONGER EVIDENT IN LATERAL LEADS Confirmed by KIERA LOPEZ MD ([id number]) on 06/07/2019 2:41:50 PM Referred By: Confirmed By:KIERA LOPEZ MD
[2019-06-07] MEDS ORDERED: RIVAROXABAN 20 MG TABLET PO SCH (18:00)
[2019-06-07] MEDS: HEPARIN NA (PORCINE) 5,000 UNITS/ML 1ML VIAL IVPUSH PRN (18:16)
[2019-06-07] MEDS ORDERED: ATORVASTATIN CA 20 MG TABLET (FP) PO SCH (22:00)
[2019-06-07] MEDS ORDERED: DONEPEZIL HCL 10 MG TABLET (FP) PO SCH (22:00)
[2019-06-07] MEDS ORDERED: CHLORHEXIDINE GLUCONATE 4% CLEANSER FOR DECOLONIZATION TP SCH (22:00)
[2019-06-08] MEDS ORDERED: SODIUM CHLORIDE 500 ML IV STA (00:25)
[2019-06-08] MEDS ORDERED: AMIODARONE HCL 150 MG/3 ML VIAL IVPUSH ONE ×2 (00:28→05:56)
[2019-06-08] MEDS: SODIUM CHLORIDE 1,000 ML IV SCH (01:04)
[2019-06-08] MEDS: HEPARIN NA (PORCINE) 5,000 UNITS/ML 1ML VIAL IVPUSH PRN (01:18)
[2019-06-08] MEDS ORDERED: VANCOMYCIN 1 GM in D5W (PRE-DOCKED) 1,000 MG/250 ML IVPB SCH ×2 (03:00→04:00)
[2019-06-08] MEDS ORDERED: PIPERACILLIN/TAZOB 2.25 GM 2.25 GM in DEXTROSE 5%-WATER - 50 ML IVPB SCH (03:00)
[2019-06-08] MEDS ORDERED: VANCOMYCIN 1 GRAM (PRE-DOCKED) 1,000 MG/250 ML BAG IVPB SCH (04:00)
[2019-06-08] MEDS: MICONAZOLE NITRATE 28 GM TUBE TP SCH ×2 (04:04→10:09)
[2019-06-08] MEDS: HEPARIN - 25,000 UNIT in SODIUM CHLORIDE 495 ML IV SCH (05:59)
[2019-06-08] MEDS ORDERED: METOPROLOL TARTRATE 5 MG/5 ML VIAL IVPUSH ONE (07:58)
[2019-06-08] MEDS ORDERED: METOPROLOL TARTRATE 5 MG/5 ML VIAL ONE (08:03)
[2019-06-08] MEDS: ALBUTEROL SO4 2.5/IPRATROPIUM 0.5 INH SOL 3 ML VIAL.NEB. NEB SCH ×2 (08:04→17:48)
--- NOTE | 2019-06-08 09:46 | PN ---
Teaching Attending Note Name of Resident: Nadia Evangelista ATTENDING PHYSICIAN STATEMENT I saw and evaluated the patient. I reviewed the resident's note and discussed the case with the resident. I agree with the resident's findings and plan as documented. SUBJECTIVE: Patient seen and examined in the ICU. Remains intubated, sedated. No pressors. Vented on volume assist control. Family to come in to further determine GOC. OBJECTIVE: Intake & Output 06/05/19 06/06/19 06/07/19 06/08/19 23:59 23:59 23:59 23:59 Intake Total 4756.5 1599 Output Total 130 450 200 Balance -130 4306.5 1399 Weight 110 lb 160 lb 8 oz 160 lb 5 oz Last Vital Signs Temp Pulse Resp BP Pulse Ox 99.7 F H 112 H 21 H 131/104 H 97 06/08/19 05:00 06/08/19 08:00 06/08/19 08:04 06/08/19 08:00 06/07/19 20:07 Active Medications Acetaminophen (Ofirmev Injection -) 1,000 mg IVPB Q6H PRN PRN Reason: FEVER Last Admin: 06/07/19 15:28 Dose: 1,000 mg Albuterol/Ipratropium (Duoneb -) 1 amp NEB RTID [facility] Last Admin: 06/08/19 08:04 Dose: 1 amp Chlorhexidine Gluconate (Hibiclens For Decolonization -) 1 applic TP HS [facility] Last Admin: 06/07/19 21:08 Dose: 1 applic Fentanyl 500 mcg/ Dextrose 100 mls @ 5 mls/hr IVPB TITR [facility] Last Titration: 06/07/19 23:50 Dose: 25 mcg/hr, 5 mls/hr Sodium Chloride (Normal Saline -) 1,000 mls @ 75 mls/hr IV ASDIR [facility] Last Admin: 06/08/19 01:04 Dose: Not Given Heparin Sodium (Porcine) 25, (000 unit/ Sodium Chloride) 500 mls @ 16 mls/hr IV TITR [facility]; Protocol Last Admin: 06/08/19 05:59 Dose: Not Given Vancomycin HCl (Vancomycin (Pre-Docked)) 1,000 mg in 250 mls @ 166.667 mls/hr IVPB DAILY@0400 [facility]; Protocol Last Admin: 06/08/19 04:12 Dose: 166.667 mls/hr Piperacillin Sod/Tazobactam (Sod 3.375 gm/ Dextrose) 50 mls @ 100 mls/hr IVPB BID [facility]; Protocol Last Admin: 06/07/19 21:09 Dose: 100 mls/hr Miconazole Nitrate (Miconazole Nitrate) 1 applic TP BID [facility] Last Admin: 06/08/19 04:04 Dose: Not Given Mupirocin (Bactroban Ointment (For Decolonization) -) 1 applic NS BID [facility] Stop: 06/12/19 09:59 Last Admin: 06/07/19 21:10 Dose: 1 applic Pantoprazole Sodium (Protonix Iv) 40 mg IVPUSH DAILY [facility] Last Admin: 06/07/19 09:34 Dose: 40 mg Gen: intubated, sedated Heart: RRR Lung: scattered rhonchi Abd: soft, nontender Ext: no edema Laboratory Results - last 24 hr 06/07/19 06/07/19 06/07/19 14:25 14:29 17:59 PTT (Actin FS) 42.4 H POC Glucometer 99 88 06/08/19 06/08/19 00:00 06:39 PTT (Actin FS) 44.2 H POC Glucometer 93 ASSESSMENT AND PLAN: Acute Hypoxic and Hypercapneic Respiratory Failure Pneumonia likely Aspiration Severe Sepsis Lactic Acidosis LV Diastolic Dysfunction Atrial Fibrillation COPD h/o Breast Ca Dementia - continue antibiotics - f/u cultures - IVF boluses as needed - monitor urine output, creatinine - trend lactate - taper Fio2 to keep SpO2 >90% - continue assist control - continue discussions regarding goals of care - poor overall prognosis - Family meeting to determine GOC Dr Lindquist Critical care time spent in reviewing chart, evaluating patient and formulating plan 35 min
[2019-06-08] MEDS: MUPIROCIN 2% TOPICAL OINTMENT FOR DECOLONIZATION NS SCH (10:01)
[2019-06-08] MEDS: PIPERACILLIN/TAZOB 3.375 GM 3.375 GM in DEXTROSE 5%-WATER - 50 ML IVPB SCH (10:02)
[2019-06-08] MEDS: PANTOPRAZOLE SODIUM 40 MG VIAL IVPUSH SCH (10:02)
[2019-06-08] MEDS ORDERED: PIPERACILLIN/TAZOBACTAM 3.375 GM VIAL IVPB ONE (10:03)
[2019-06-08] MEDS ORDERED: DEXTROSE 5%-WATER - 50 ML IVPB ONE (10:03)
[2019-06-08] MEDS ORDERED: PT OWN MED DRAWER 7, Y5N ONE (10:03)
--- NOTE | 2019-06-08 10:37 | PN ---
Physical Exam: SUBJECTIVE: Patient seen and examined. Intubated and sedated. Family discussion had with Palliative care yesterday, family will likely make a final decision today when they arrive, leaning towards terminal extubation. OBJECTIVE: Vital Signs Period Temp Pulse Resp BP Sys/Crawford Pulse Ox Last 24 Hr 99.1 F-101.6 F 100-147 15-21 70-131/45-104 97-97 GENERAL: intubated, sedated HEAD: Normal with no signs of trauma. ENT: dry mucous membranes NECK: Trachea midline, ET tube in place LUNGS: diminished breath sounds bilaterally, no accessory muscle use HEART: tachycardic, no murmur noted ABDOMEN: Soft, nontender, nondistended, normoactive bowel sounds EXTREMITIES: 2+ pulses, warm, well-perfused, no edema. NEUROLOGICAL: normal gag reflex SKIN: Warm, dry Laboratory Results - last 24 hr 06/07/19 06/07/19 06/07/19 14:25 14:29 17:59 PTT (Actin FS) 42.4 H POC Glucometer 99 88 06/08/19 06/08/19 00:00 06:39 PTT (Actin FS) 44.2 H POC Glucometer 93 Active Medications Generic Name Dose Route Start Last Admin Trade Name Freq PRN Reason Stop Dose Admin Acetaminophen 1,000 mg 06/07/19 14:36 06/07/19 15:28 Ofirmev Injection - IVPB 1,000 mg Q6H PRN Administration FEVER Albuterol/Ipratropium 1 amp 06/07/19 08:00 06/08/19 08:04 Duoneb - NEB 1 amp RTID [facility] Administration Chlorhexidine Gluconate 1 applic 06/07/19 22:00 06/07/19 21:08 Hibiclens For Decolonization - TP 1 applic HS [facility] Administration Fentanyl 500 mcg/ Dextrose 100 mls @ 5 mls/hr 06/06/19 23:30 06/07/19 23:50 IVPB 25 mcg/hr TITR [facility] 5 mls/hr Titration 25 MCG/HR Sodium Chloride 1,000 mls @ 75 mls/hr 06/07/19 01:30 06/08/19 01:04 Normal Saline - IV Not Given ASDIR [facility] Heparin Sodium (Porcine) 25, 500 mls @ 16 mls/hr 06/07/19 05:30 06/08/19 05: 59 000 unit/ Sodium Chloride IV Not Given TITR [facility] Protocol 800 UNIT/HR Vancomycin HCl 1,000 mg in 250 mls @ 166.667 mls/hr 06/08/19 04:00 06/08/19 04:12 Vancomycin (Pre-Docked) IVPB 166.667 mls/hr DAILY@0400 [facility] Administration Protocol Piperacillin Sod/Tazobactam 50 mls @ 100 mls/hr 06/07/19 11:45 06/08/19 10:02 Sod 3.375 gm/ Dextrose IVPB 100 mls/hr BID [facility] Administration Protocol Miconazole Nitrate 1 applic 06/07/19 10:00 06/08/19 10:09 Miconazole Nitrate TP 1 applic BID [facility] Administration Mupirocin 1 applic 06/07/19 10:00 06/08/19 10:01 Bactroban Ointment (For Decolonization) - NS 06/12/19 09:59 1 applic BID [facility] Administration Pantoprazole Sodium 40 mg 06/07/19 10:00 06/08/19 10:02 Protonix Iv IVPUSH 40 mg DAILY [facility] Administration ASSESSMENT/PLAN: 78 y/o/f with PMHx of Alzheimer's dementia, COPD, Asthma, HF PrEF, Afib (on Xarelto), HTN, HLD, Breast Ca s/p L- Mastectomy, admitted at [facility] 04/11-04/24 for sepsis 2/2 UTI. BIBEMS for acute hypoxic respiratory failure, 2/2 suspected aspiration pneumonia/CHF exacerbation, intubated in the field. Admitted 06/07. #[employer] - Intubated, sedated for acute hypoxic respiratory failure, 2/2 suspected aspiration pneumonia/CHF exacerbation - Sedated on Fentanyl, Midazolam - Hx of Alzheimer's dementia, on Donepezil at home #[facility] - Hx of HF PrEF, on Lasix 20mg at home - Hx of HTN, on Lopressor 75mg, Lisinopril 5mg, Isosorbide mononitrate 30mg, - Hx of AFib, on Xarelto at home - Hold antiHTN medications at this time due to poor BP status - Blood pressure responsive to fluid bolus - Cardio ECHO this admission with normal EF #Respiratory - acute hypoxic respiratory failure, 2/2 suspected aspiration pneumonia/CHF exacerbation - CXR: multisegment pneumonia - adjust vent settings appropriately as per ABGs - patient DNI but intubated by EMS who were unaware of patient's code status #Renal - Cr 1.2 on admission (baseline over the past year seems to be 0.6-0.9), Gfr 43 - UA: Protein +1 - BUN/Cr last check at 32.1/1.1 #ID - Aspiration pneumonia with acute hypoxic respiratory failure - WBC 7.7 -> 3.1 - LA 3.5 -> 3.4 - Continue on Vanc/Zosyn - Blood cultures negative to date. Legionella antigen negative. - Urine culture growing non lactose fermenting GNB and lactose fermenting negative bacilli #Heme - Hg 11.3 #FEN - N/S @ 75mls/hr - NPO, can consider tube feeds if intubated for extended period of time #Prophylaxis - Heparin drip - Protonix #Dispo - DNR/DNI - Continue ICU monitoring - Goals of Care discussion with family, Palliative care on board. Family leaning towards terminal extubation. Spoke with Palliative care team yesterday, will likely make final decision today upon arrival of HCP. Visit type - Emergency Visit Emergency Visit: Yes ED Registration Date: 06/07/19 Care time: The patient presented to the Emergency Department on the above date and was hospitalized for further evaluation of their emergent condition. - New Patient This patient is new to me today: No - Critical Care Critical Care patient: Yes Total Critical Care Time (in minutes): 36 Critical Care Statement: The care of this patient involved high complexity decision making to prevent further life threatening deterioration of the patient 's condition and/or to evaluate & treat vital organ system(s) failure or risk of failure. ATTENDING PHYSICIAN STATEMENT I saw and evaluated the patient. I reviewed the resident's note and discussed the case with the resident. I agree with the resident's findings and plan as documented. SUBJECTIVE: OBJECTIVE: ASSESSMENT AND PLAN:
--- NOTE | 2019-06-08 10:50 | PN ---
Progress Note (short form) - Note Progress Note: Pt seen/ examined in icu chart is reviewed son is at bedside case also d/w icu resident and Attending Intubated Vital Signs Temp 99.1 F 06/08/19 10:00 Pulse 116 H 06/08/19 10:00 Resp 16 06/08/19 10:00 BP 94/58 L 06/08/19 10:00 Pulse Ox 97 06/07/19 20:07 Intake & Output 06/07/19 06/07/19 06/08/19 11:59 23:59 11:59 Intake Total 1519 3237.5 1599 Output Total 150 300 200 Balance 1369 2937.5 1399 Weight 160 lb 8 oz 160 lb 5 oz Intake: IV 1519 2937.5 1349 Heparin - 25,000 Unit In 194 240 Normal Saline - 495 ml @ 800 UNIT/HR 16 mls/hr IV TITR [facility] Rx#:[id number] MIDAZOLAM 100MG/100ML-0.9 12 24 %NACL 100 mg In 100 ml @ 1 MG/HR 1 mls/hr IVPB TITR [facility] Rx#:[id number] NS bolus 500cc 1000 Normal Saline - 1,000 ml 1500 @ 1000 mls/hr IV ASDIR [facility] Rx#:[id number] Normal Saline - 1,000 ml 1087.5 525 @ 75 mls/hr IV ASDIR [facility] Rx#:[id number] Normal Saline - 500 ml @ 500 500 mls/hr IV [facility] Rx#:[id number] Normal Saline - 500 ml @ 500 500 mls/hr IV [facility] Rx#:[id number] Sublimaze Injection - 500 19 144 60 Mcg In D5w - 90 ml @ 25 MCG/HR 5 mls/hr IVPB TITR [facility] Rx#:[id number] IVPB 300 250 Output: Urine 150 300 200 Hicks 150 300 200 Other: Voiding Method Indwelling Catheter Indwelling Catheter Bowel Movement Yes No Yes # Bowel Movements 1 Height 5 ft 7 in Body Mass Index (BMI) 25.1 Weight Measurement Method Built in [facility] Active Medications Acetaminophen (Ofirmev Injection -) 1,000 mg IVPB Q6H PRN PRN Reason: FEVER Last Admin: 06/07/19 15:28 Dose: 1,000 mg Albuterol/Ipratropium (Duoneb -) 1 amp NEB RTID [facility] Last Admin: 06/08/19 08:04 Dose: 1 amp Chlorhexidine Gluconate (Hibiclens For Decolonization -) 1 applic TP HS [facility] Last Admin: 06/07/19 21:08 Dose: 1 applic Fentanyl 500 mcg/ Dextrose 100 mls @ 5 mls/hr IVPB TITR [facility] Last Titration: 06/07/19 23:50 Dose: 25 mcg/hr, 5 mls/hr Sodium Chloride (Normal Saline -) 1,000 mls @ 75 mls/hr IV ASDIR [facility] Last Admin: 06/08/19 01:04 Dose: Not Given Heparin Sodium (Porcine) 25, (000 unit/ Sodium Chloride) 500 mls @ 16 mls/hr IV TITR [facility]; Protocol Last Admin: 06/08/19 05:59 Dose: Not Given Vancomycin HCl (Vancomycin (Pre-Docked)) 1,000 mg in 250 mls @ 166.667 mls/hr IVPB DAILY@0400 [facility]; Protocol Last Admin: 06/08/19 04:12 Dose: 166.667 mls/hr Piperacillin Sod/Tazobactam (Sod 3.375 gm/ Dextrose) 50 mls @ 100 mls/hr IVPB BID [facility]; Protocol Last Admin: 06/08/19 10:02 Dose: 100 mls/hr Miconazole Nitrate (Miconazole Nitrate) 1 applic TP BID [facility] Last Admin: 06/08/19 10:09 Dose: 1 applic Mupirocin (Bactroban Ointment (For Decolonization) -) 1 applic NS BID [facility] Stop: 06/12/19 09:59 Last Admin: 06/08/19 10:01 Dose: 1 applic Pantoprazole Sodium (Protonix Iv) 40 mg IVPUSH DAILY [facility] Last Admin: 06/08/19 10:02 Dose: 40 mg CBC, BMP 06/07/19 07:10 06/07/19 07:10 Microbiology 06/06/19 23:50 Urine Culture - Preliminary Urine - Urine Hicks Non Lactose Fermenting Gnb Lactose Fermenting Neg Bacilli 06/06/19 23:20 Blood Culture - Preliminary Blood - Peripheral Venous NO GROWTH OBTAINED AFTER 24 HOURS, INCUBATION TO CONTINUE FOR 4 DAYS. 06/06/19 23:40 Blood Culture - Preliminary Blood - Peripheral Venous NO GROWTH OBTAINED AFTER 24 HOURS, INCUBATION TO CONTINUE FOR 4 DAYS. 06/07/19 04:25 Legionella Antigen - Final Urine - Urine Hicks Streptococcus pneumoniae Antigen (M - Final Physical Constitutional: Yes: Intubated. poorly responsive Cardiovascular: Yes: Pulse Irregular Respiratory: Yes: Diminished/ Gastrointestinal: Yes: Normal Bowel Sounds, Soft. No: Tenderness Edema: Yes Edema: LLE: Trace, RLE: Trace Problem List - Problems (1) Atrial fibrillation with RVR Code(s): I48.91 - UNSPECIFIED ATRIAL FIBRILLATION (2) Pneumonia Code(s): J18.9 - PNEUMONIA, UNSPECIFIED ORGANISM Qualifiers: Pneumonia type: aspiration pneumonia (3) Respiratory distress Code(s): R06.03 - ACUTE RESPIRATORY DISTRESS (4) Severe sepsis Code(s): A41.9 - SEPSIS, UNSPECIFIED ORGANISM; R65.20 - SEVERE SEPSIS WITHOUT SEPTIC SHOCK (5) Respiratory failure Code(s): J96.90 - RESPIRATORY FAILURE, UNSP, UNSP W HYPOXIA OR HYPERCAPNIA (6) Diastolic dysfunction Code(s): I51.9 - HEART DISEASE, UNSPECIFIED (7) Hypoxia Code(s): R09.02 - HYPOXEMIA Assessment/Plan Ventilator support IV antibiotics IV fluids continue present care palliative care eval family to decide further goal of care will follow
--- NOTE | 2019-06-08 11:02 | PN ---
Progress Note, Physician History of Present Illness: continues to be intubated son in the room - Current Medication List Current Medications: Active Medications Acetaminophen (Ofirmev Injection -) 1,000 mg IVPB Q6H PRN PRN Reason: FEVER Last Admin: 06/07/19 15:28 Dose: 1,000 mg Albuterol/Ipratropium (Duoneb -) 1 amp NEB RTID [facility] Last Admin: 06/08/19 08:04 Dose: 1 amp Chlorhexidine Gluconate (Hibiclens For Decolonization -) 1 applic TP HS [facility] Last Admin: 06/07/19 21:08 Dose: 1 applic Fentanyl 500 mcg/ Dextrose 100 mls @ 5 mls/hr IVPB TITR [facility] Last Titration: 06/07/19 23:50 Dose: 25 mcg/hr, 5 mls/hr Sodium Chloride (Normal Saline -) 1,000 mls @ 75 mls/hr IV ASDIR [facility] Last Admin: 06/08/19 01:04 Dose: Not Given Heparin Sodium (Porcine) 25, (000 unit/ Sodium Chloride) 500 mls @ 16 mls/hr IV TITR [facility]; Protocol Last Admin: 06/08/19 05:59 Dose: Not Given Vancomycin HCl (Vancomycin (Pre-Docked)) 1,000 mg in 250 mls @ 166.667 mls/hr IVPB DAILY@0400 [facility]; Protocol Last Admin: 06/08/19 04:12 Dose: 166.667 mls/hr Piperacillin Sod/Tazobactam (Sod 3.375 gm/ Dextrose) 50 mls @ 100 mls/hr IVPB BID [facility]; Protocol Last Admin: 06/08/19 10:02 Dose: 100 mls/hr Miconazole Nitrate (Miconazole Nitrate) 1 applic TP BID [facility] Last Admin: 06/08/19 10:09 Dose: 1 applic Mupirocin (Bactroban Ointment (For Decolonization) -) 1 applic NS BID [facility] Stop: 06/12/19 09:59 Last Admin: 06/08/19 10:01 Dose: 1 applic Pantoprazole Sodium (Protonix Iv) 40 mg IVPUSH DAILY [facility] Last Admin: 06/08/19 10:02 Dose: 40 mg - Objective Vital Signs: Vital Signs Temperature 99.1 F 06/08/19 10:00 Pulse Rate 116 H 06/08/19 10:00 Respiratory Rate 16 06/08/19 10:00 Blood Pressure 94/58 L 06/08/19 10:00 O2 Sat by Pulse Oximetry (%) 97 06/07/19 20:07 Constitutional: Yes: Other Cardiovascular: Yes: S1, S2 Respiratory: Yes: Intubated, Mechanically Ventilated, Rhonchi Gastrointestinal: Yes: Normal Bowel Sounds, Soft Musculoskeletal: Yes: WNL Extremities: Yes: WNL Neurological: Yes: Other Labs: CBC, BMP 06/07/19 07:10 06/07/19 07:10 INR, PTT INR 1.31 (0.83-1.09) H 06/06/19 23:20 Assessment/Plan 78-year-old halfway woman with hypercapnic, hypoxic respiratory failure status post intubation, septic shock secondary to aspiration pneumonia patient currently intubated Acute Hypoxic and Hypercapneic Respiratory Failure Pneumonia likely Aspiration Severe Sepsis Lactic Acidosis LV Diastolic Dysfunction Atrial Fibrillation COPD h/o Breast Ca Dementia uti plan continue abx resp support nutrition rest as per icu close watch cc 40 min
[2019-06-08] MEDS ORDERED: fentaNYL CITRATE 250 MCG/5 ML VIAL ONE (11:54)
[2019-06-08] MEDS ORDERED: MIDAZOLAM IN 0.9 % SOD.CHLORID 1 MG/1 ML PLAST..BAG ONE (12:14)
[2019-06-08] MEDS ORDERED: MORPHINE SULFATE/0.9% NACL/PF 100 MG/100 ML BAG IVPB SCH (12:45)
[2019-06-08] MEDS ORDERED: morphine SULFATE 4 MG/ML VIAL IVPUSH ONE (14:57)
[2019-06-08] MEDS ORDERED: LORazepam 2 MG/ML SDV VIAL IVPUSH PRN (14:57)
[2019-06-08] MEDS ORDERED: SCOPOLAMINE HYDROBROMIDE 1 PATCH PATCH.TD72 TD SCH (15:30)
--- NOTE | 2019-06-08 16:11 | PN ---
Progress Note (short form) - Note Progress Note: Patient officially made comfort care with family and HCP present. Decision made to terminally extubate. Palliative care spoke with patient's family. Patient extubated on to venti mask. Comfort care measures ordered including morphine, ativan, scopolamine patch. [facility].
[2019-06-08] MEDS ORDERED: ACETAMINOPHEN 325 MG TABLET (FP) PO PRN (23:23)
[2019-06-08] MEDS ORDERED: ACETAMINOPHEN 1000 MG/100 ML VIAL (NON FORMULARY) IVPB PRN (23:40)
[2019-06-08 23:52] VITALS: BP 85/42; PULSE 135; TEMP 99.9
--- NOTE | 2019-06-09 02:11 | HOSP ---
Subjective - Review of Symptoms Events since last encounter: Called to see patient for unresponsiveness, on exam patient did not respond to verbal, tactile stimuli, Upon exam absent heart and breath sounds. Absent peripheral pulses. Pupils are fixed and dilated. patient pronounced at 1: 06 AM. RN will call attending MD in AM. Next of kin/ family at beside informed. Autopsy declined. Family has services arranged. Nursing staff available for further assistance. Physical Examination Vital Signs: Labs:
--- NOTE | 2019-07-04 15:11 | EKG ---
Test Reason : Blood Pressure : / mmHG Vent. Rate : 103 BPM Atrial Rate : 119 BPM P-R Int : 000 ms QRS Dur : 094 ms QT Int : 366 ms P-R-T Axes : 000 055 066 degrees QTc Int : 479 ms ATRIAL FIBRILLATION WITH RAPID VENTRICULAR RESPONSE Lateral ST segment depression c/w ischemia ACS ABNORMAL ECG WHEN COMPARED WITH ECG OF 06-JUN-2019 23:24, NONSPECIFIC T WAVE ABNORMALITY NOW EVIDENT IN INFERIOR LEADS Confirmed by CHERELLE SCHWAB MD ([id number]) on 07/04/2019 3:10:58 PM Referred By: Confirmed By:CHERELLE SCHWAB MD
== END 2019-06-09 01:06 | disposition expired | DRG 871 ==
LOC: JER 23:13 → JERBED 06-07 00:45 → JICU 06-07 02:34 → J4S 06-08 20:47
PROVIDERS: ADMIT Internal Medicine; ATTEND Internal Medicine
PROC: 5A1945Z Respiratory Ventilation, 24-96 Consecutive Hours (ICD-10-PCS; principal; 2019-06-06)
DX: A41.89 Other specified sepsis (principal); J96.01 Acute respiratory failure with hypoxia; J69.0 Pneumonitis due to inhalation of food and vomit; R65.21 Severe sepsis with septic shock; J96.02 Acute respiratory failure with hypercapnia; E87.2 Acidosis; I50.30 Unspecified diastolic (congestive) heart failure; I11.0 Hypertensive heart disease with heart failure; R50.9 Fever, unspecified; R73.9 Hyperglycemia, unspecified; G30.9 Alzheimer's disease, unspecified; I25.10 Atherosclerotic heart disease of native coronary artery without angina pectoris; I10 Essential (primary) hypertension; E78.5 Hyperlipidemia, unspecified; I48.91 Unspecified atrial fibrillation; I16.0 Hypertensive urgency; J44.9 Chronic obstructive pulmonary disease, unspecified; K21.9 Gastro-esophageal reflux disease without esophagitis; R13.10 Dysphagia, unspecified; E88.09 Other disorders of plasma-protein metabolism, not elsewhere classified; F02.80 Dementia in other diseases classified elsewhere, unspecified severity, without behavioral disturbance, psychotic disturbance, mood disturbance, and anxiety; I46.9 Cardiac arrest, cause unspecified; Z85.3 Personal history of malignant neoplasm of breast; R94.31 Abnormal electrocardiogram [ECG] [EKG]
CPT/HCPCS: 36415; 36600; 71045-TC-FY; 80053; 81003; 82375; 82803; 82962; 83036; 83050; 83605; 83735; 84100; 84484; 85025; 85610; 85730; 87040; 87077; 87086; 87186; 87804; 87899; 93005; 93010; 93306-TC; 94002; 94640; 99285-25; J0131; J1644; J7030